=== PATIENT | female | born 1960 | race Asian ===

== ENCOUNTER 2023-08-17 23:25 | Inpatient (IN) | payer BC, SELFPAY ==
[2023-08-17 20:21] VITALS: BMI 28.6
[2023-08-17 20:25] VITALS: BP 147/71
[2023-08-17 20:37] VITALS: BP 150/68
--- NOTE | 2023-08-17 20:53 | ED.GENMED ---
History of Present Illness
<SATINDER Church - Last Filed: 08/17/23 22:39>
General
Chief Complaint: Breathing Problem
Source: patient
Exam Limitations: none
Time Seen by Provider: 08/17/23 20:35
Nursing documentation reviewed up to this point in time: agreed with
Travel History
Have you had any contact with someone who has COVID-19?: No
Do you have any symptoms of coronavirus? Fever > 100 degrees, chills, cough, shortness of breath, sore throat, loss of taste or smell, muscle aches, or headache?: No
History of Present Illness
History of Present Illness:
62-year-old female with significant past medical history including respiratory failure due to COVID in 2019 requiring ECMO, prolonged ventilation, hypertension [place] , [id number] diabetes anemia dyslipidemia CAD trach collar presents to the
ER brought by family for evaluation of shortness of breath. Family reports patient normally uses half a liter of oxygen on trach collar during the day and is vented at night. They report for the past several days they have noticed the patient
seems slower to respond slightly confused/lethargic and seems to have increased work of breathing. They have noticed that she has had increased heart rate and increased respiratory rate and lower pulse ox. She has had issues with CO2 retention in
the past
Past History
<SATINDER Church - Last Filed: 08/17/23 22:39>
Past History
ED Past Medical History: CAD, HTN, Hypercholesterolemia, IDDM, [place] and Other (COVID-19 infection June 2019 requiring ECMO while at [facility], hospitalization lasting 8 months. O2 dependent, severe deconditioning/wheelchair-bound)
ED Past Surgical History: Cardiac (Cardiac catheterization), Cholecystectomy, , Orthopedic (Laminectomy) and Other (Gallbladder stent and removal)
Patient has exhibited threatening behavior?: No
PSI?: No
Social History
Tobacco: Non-smoker
Alcohol: None
Drug: None
Personal:
Living: with family
Employment: Retired
Family History
Family History: Other (reviewed and noncontributory)
Review of Systems
<SATINDER Church - Last Filed: 08/17/23 22:39>
Review of Systems
Allergies reviewed?: Yes
Other source history: family
All Other Systems: ROS reviewed and negative except as documented in HPI and ROS
Constitutional: Reports other
Respiratory: Reports trouble breathing (Increased work of breathing )
: Reports no symptoms
Musculoskeletal: Reports no symptoms
Skin: Reports no symptoms
Psychiatric: Reports no symptoms
Phy Exam
<SATINDER Church - Last Filed: 08/17/23 22:39>
General Physical Exam
General Presentation: no apparent distress
General age: appears stated age
General Skin: warm and dry
General Habitus: elderly
General Mental: alert
General Hydration: dry mucous membranes
Cardiovascular Exam
Cardiovascular Exam: tachycardia
Pulmonary Exam
Pulmonary Exam: other (+ trach increased resp rate dec breath sounds )
Neurological Exam
Neurological Exam: alert and oriented x3
Musculoskeletal Exam
Musculoskeletal Exam: full ROM
Skin Exam
Skin Exam: normal color and warm/dry
Psychiatric Exam
Psychiatric Exam: normal mood/affect
Scores
<SATINDER Church - Last Filed: 08/17/23 22:39>
Heart Failure Risk
Heart Failure Risk Score: Not Applicable
Course
<SATINDER Church - Last Filed: 08/17/23 22:39>
Orders/Labs/Results
Orders:
Orders
08/17/23 20:49
IV Insert/Care/Rem.- Treatment PRN
Urinalysis Reflex To Culture Urgent
08/17/23 20:52
Chest X-ray Portable [CR Chest Portable - 1 View] Urgent
Comment:
Reason For Exam: SOB
Reason Study Needs to be Portable: Patient Unstable
08/17/23 21:23
Complete Blood Count/With Diff Urgent
Comprehensive Metabolic Panel Urgent
Lactic Acid Q4H
Comment: CANCEL 2nd LACTIC ACID IF 1st LACTIC ACID IS LESS THAN 2
Blood Culture Q30M
MIKKI Source: Blood/Venous
Specimen Description:
08/17/23 21:35
ABG [Arterial Blood Gas] Urgent
%Oxygen/Room Air: 36
08/17/23 22:00
Blood Culture Q30M
MIKKI Source: Blood/Venous
Specimen Description:
08/17/23 22:26
Electrocardiogram (*1) Stat
Reason for Study: Other
Other Reason for Exam: chest pain
EKG- Treatment ONCE
08/17/23 22:27
0.9% Sodium Chloride 500 ml [Nss] 500 ml IV BOLUS
08/18/23 01:30
Lactic Acid Q4H
Comment: CANCEL 2nd LACTIC ACID IF 1st LACTIC ACID IS LESS THAN 2
Abnormal Lab Results
08/17/23 08/17/23
21:23 21:35
RBC 2.91 L 10^6/uL
(4.20-5.40)
Hgb 8.2 L g/dL
(12.0-16.0)
Hct 26.2 L %
(37.0-47.0)
MCHC 31.3 L g/dL
(33.0-37.0)
MPV 11.0 H fL
(7.4-10.4)
Abs Immat Gran (auto) 0.1 H 10^3/uL
(0-0.05)
Absolute Lymphs (auto) 0.9 L 10^3/uL
(1.2-3.4)
Immature Gran % 0.8 H %
(0-0.5)
Neutrophils % 79.6 H %
(42.2-75.2)
Lymphocytes % 14.4 L %
(20.5-51.1)
pH 7.24 L
(7.35-7.45)
pCO2 52 H mmHg
(32-35)
pO2 59 L* mmHg
(83-108)
ABG O2 Sat (Measured) 92.1 L %
(94-98)
Chloride 116 H mmol/L
(98-107)
Carbon Dioxide 20 L mmol/L
(22-30)
BUN 36 H mg/dl
(7-17)
Creatinine 2.0 H mg/dL
(0.6-1.0)
Glucose 128 H mg/dl
(70-99)
AST 13 L U/L
(14-36)
Total Protein 6.1 L g/dl
(6.3-8.2)
Albumin 3.1 L g/dl
(3.5-5.0)
08/17/23 21:23
08/17/23 21:23
Vital Signs
Initial and Last Documented VS:
Initial Vital Signs
Temp Pulse Resp BP Pulse Ox
99.2 F 103 20 147/71 93
08/17/23 20:25 08/17/23 20:25 08/17/23 20:25 08/17/23 20:25 08/17/23 20:25
Last Documented Vital Signs
Temp Pulse Resp BP Pulse Ox
99.2 F 103 20 150/71 100
08/17/23 20:25 08/17/23 20:25 08/17/23 20:25 08/17/23 22:01 08/17/23 22:01
Shanthilt;DO Arnulfo Mata Filed: 08/17/23 23:04>
Orders/Labs/Results
Orders:
Orders
08/17/23 20:49
IV Insert/Care/Rem.- Treatment PRN
Urinalysis Reflex To Culture Urgent
08/17/23 20:52
Chest X-ray Portable [CR Chest Portable - 1 View] Urgent
Comment:
Reason For Exam: SOB
Reason Study Needs to be Portable: Patient Unstable
08/17/23 21:23
Complete Blood Count/With Diff Urgent
Comprehensive Metabolic Panel Urgent
Lactic Acid Q4H
Comment: CANCEL 2nd LACTIC ACID IF 1st LACTIC ACID IS LESS THAN 2
Blood Culture Q30M
MIKKI Source: Blood/Venous
Specimen Description:
08/17/23 21:35
ABG [Arterial Blood Gas] Urgent
%Oxygen/Room Air: 36
08/17/23 22:00
Blood Culture Q30M
MIKKI Source: Blood/Venous
Specimen Description:
08/17/23 22:26
Electrocardiogram (*1) Stat
Reason for Study: Other
Other Reason for Exam: chest pain
EKG- Treatment ONCE
08/17/23 22:27
0.9% Sodium Chloride 500 ml [Nss] 500 ml IV BOLUS
08/18/23 01:30
Lactic Acid Q4H
Comment: CANCEL 2nd LACTIC ACID IF 1st LACTIC ACID IS LESS THAN 2
Abnormal Lab Results
08/17/23 08/17/23
21:23 21:35
RBC 2.91 L 10^6/uL
(4.20-5.40)
Hgb 8.2 L g/dL
(12.0-16.0)
Hct 26.2 L %
(37.0-47.0)
MCHC 31.3 L g/dL
(33.0-37.0)
MPV 11.0 H fL
(7.4-10.4)
Abs Immat Gran (auto) 0.1 H 10^3/uL
(0-0.05)
Absolute Lymphs (auto) 0.9 L 10^3/uL
(1.2-3.4)
Immature Gran % 0.8 H %
(0-0.5)
Neutrophils % 79.6 H %
(42.2-75.2)
Lymphocytes % 14.4 L %
(20.5-51.1)
pH 7.24 L
(7.35-7.45)
pCO2 52 H mmHg
(32-35)
pO2 59 L* mmHg
(83-108)
ABG O2 Sat (Measured) 92.1 L %
(94-98)
Chloride 116 H mmol/L
(98-107)
Carbon Dioxide 20 L mmol/L
(22-30)
BUN 36 H mg/dl
(7-17)
Creatinine 2.0 H mg/dL
(0.6-1.0)
Glucose 128 H mg/dl
(70-99)
AST 13 L U/L
(14-36)
Total Protein 6.1 L g/dl
(6.3-8.2)
Albumin 3.1 L g/dl
(3.5-5.0)
08/17/23 21:23
08/17/23 21:23
Vital Signs
Initial and Last Documented VS:
Initial Vital Signs
Temp Pulse Resp BP Pulse Ox
99.2 F 103 20 147/71 93
08/17/23 20:25 08/17/23 20:25 08/17/23 20:25 08/17/23 20:25 08/17/23 20:25
Last Documented Vital Signs
Temp Pulse Resp BP Pulse Ox
99.2 F 103 20 150/71 100
08/17/23 20:25 08/17/23 20:25 08/17/23 20:25 08/17/23 22:01 08/17/23 22:01
<SATINDER Church - Last Filed: 08/17/23 22:39>
MDM/Problems Addressed
Differential Diagnosis Includes:
Not limited to pneumothorax, pneumonia, mucous plug
MDM/Problems Addressed:
Patient is a 62-year-old female as documented with trach with previous respiratory failure with prolonged ventilation in 2019 due to COVID. Patient has a history of recurrent CO2 retention. Family noticed the patient was more fatigued and slightly
more confused and noted increased respiratory rate. They also noted the patient was hypoxic at home. She is normally on 1/2 L of of oxygen via trach collar. Patient presented here in the ER as low as 80% on her 1 L trach collar O2. I initially
increased patient's oxygen to 4 L trach collar and her oxygenation pulse ox improved to 99%. Stat portable chest x-ray was done which does show near complete opacification throughout the left hemothorax likely atelectasis. ABG just showed
respiratory acidosis, with a pH of 7.24 she is retaining CO2 with a CO2 of 52and a low pO2 of 59. Pt eval by Ronny and Bipap was ordered 10/22.
patient with a normal white count no fevers at home will hold off on antibiotics will admit to hospital service.
Chronic conditions affecting care:
resp failure /trach and vented at night
<SATINDER Church - Last Filed: 08/17/23 22:39>
*Radiology
Radiology exam reviewed: radiology read reviewed
*Pulse Oximetry
Patient hypoxic: yes
*Critical Care Note
Total Time (30-74mins, 75-104mins- exclusive of procedures): Not Applicable
ED Attending Note
<SATINDER Church - Last Filed: 08/17/23 22:39>
-
Portions of this chart may have been created with voice recognition software.� Occasional wrong word or��sound alike� substitutions may have occurred due to the inherent limitations of voice recognition software.
<Ady Xiao DO - Last Filed: 08/17/23 23:04>
ED Attending Note
Patient seen and examined by attending physician: Yes
I performed the substantive portion of visit, reviewed & personally made and approve the management plan that is documented in note by myself or ZARI.: Yes
ED Attending Note:
Patient is 62-year-old female with a history of trach secondary to COVID and respiratory failure who presents with increasing shortness of breath over the past 3 to 4 days with a pulse ox in the 80s. Patient has a decubitus on her right side and
spends much of the time on her left side. Patient has not felt fever or chills but has felt increasingly fatigued. Patient denies chest pain. Patient feels some irritation but has not been coughing. Patient is not a GI or symptoms. Patient
denies any leg pain or swelling. On physical exam patient is pale but does have anemia but is consistent with her past values. Heart is regular and lungs are clear with diminished breath sounds on the left. Abdomen soft nontender. Extremities
without cyanosis, edema or tenderness. Patient has good peripheral pulses. On chest x-ray it appears patient has mucous plugging with atelectasis and possible pleural effusion. Patient had something similar approximately a year and a half ago.
Patient's blood gas shows a respiratory acidosis with mild hypoxemia. Patient is on 4 L and normally she is on a half at home. Patient's pulse ox is 92%. Patient was put on BiPAP to try to diminish her CO2. Patient will be admitted.
Discharge Plan
Departure
Patient Disposition: Admit
Date of Disposition: 08/17/23
Time of Disposition: 22:34
Admit to: ICU
Admit to doctor: hospitalist
Presentation/result/management discussed w/ accepting MD/DO: Hospitalist
Patient with high blood pressure during this ER visit?: Yes
Condition: Fair
Covid-19: Not Applicable
Discharge Problem:
Acute and chronic respiratory failure, Acute renal insufficiency
Prescriptions:
No Action
acetaminophen [Tylenol Extra Strength] 500 MG tablet
1,000 mg PO Q6HPRN PRN (Reason: mild pain/ temp>100.5 F) 0RF
insulin lispro [Humalog KwikPen Insulin] 100 UNIT/ML insulin pen
0 sliding scale dose SC ACHS
metformin 500 mg Tablet Extended Release 24 Hr
1,000 mg PO BID@0800,1700
Hold Instructions: Until creatinine improves
ferrous gluconate 324 mg (37.5 mg iron) Tablet
324 mg PO BID
metoprolol tartrate 25 MG tablet
50 mg PO BID
loratadine [Allergy Relief (loratadine)] 10 mg Tablet
10 mg PO DAILY PRN (Reason: allergy symptoms)
atorvastatin 20 MG tablet
20 mg PO QPM Qty: 30 0RF
doxazosin 1 MG tablet
1 mg PO HS Qty: 30 0RF
cyanocobalamin (vitamin B-12) 1,000 mcg Tablet
1,000 mcg PO DAILY
lisinopril 40 mg Tablet
40 mg PO DAILY
cholecalciferol (vitamin D3) 25 mcg (1,000 unit) Tablet
25 mcg PO DAILY
aspirin 81 mg Tablet,Delayed Release (Dr/Ec)
81 mg PO DAILY Qty: 30 0RF
amlodipine 5 mg tablet
5 mg PO DAILY
Levemir FlexPen 100 unit/mL (3 mL) Insulin Pen
10 unit SC HS
Mounjaro 7.5 mg/0.5 mL pen injector
7.5 mg SC TANG
ipratropium-albuterol 0.5 mg-3 mg(2.5 mg base)/3 mL solution for nebulization
3 ml inhalation R TID
pantoprazole 40 mg tablet,delayed release (DR/EC)
40 mg PO DAILY PRN (Reason: gi issues)
Referrals:
Arnulfo Del Valle CRNP [Family Provider] -
Interventions
Interventions:
*Risk Screen - Suicide Last Done: 08/17/23 20:31
*General Assessment Last Done: 08/17/23 20:31
*ED COVID-19 Vaccine History Last Done: 08/17/23 20:31
ED- Cardiac Assessment Last Done: 08/17/23 21:04
ED- Pulmonary Assessment Last Done: 08/17/23 21:04
Discharge Date and Time
Print Language: SINGAPOREAN
[2023-08-17 21:31] LABS: % Basophils 0.5 % (0-2); % Eosinophils 0.8 % (0-6); % Immature Granulocytes 0.8 % (0-0.5); % Lymphocytes 14.4 % (20.5-51.1); % Monocytes 3.9 % (1.7-9.3); % Neutrophils 79.6 % (42.2-75.2); Absolute Eosinophils 0.1 10^3/uL (0-0.7); Absolute Immature Granulocytes 0.1 10^3/uL (0-0.05); Absolute Lymphocytes 0.9 10^3/uL (1.2-3.4); Absolute Monocytes 0.2 10^3/uL (0.1-0.6); Absolute Neutrophils 4.9 10^3/uL (1.4-6.5); Hematocrit 26.2 % (37.0-47.0); Hemoglobin 8.2 g/dL (12.0-16.0); Mean Corp Hgb Conc. 31.3 g/dL (33.0-37.0); Mean Corpuscular Hgb 28.2 pg (27.0-31.0); Nucleated Red Blood Cells % 0 %; Platelet Count 213 10^3/uL (130-400); Red Blood Cell Count 2.91 10^6/uL (4.20-5.40); Red Cell Dist. Width 13.3 % (11.5-14.5); White Blood Cell Count 6.2 10^3/uL (4.8-10.8)
[2023-08-17 21:40] LABS: B.E. -4.9 mmol/L; HCO3 22.3 mmol/L (21-28); O2 Saturation % 92.1 % (94-98); PCO2 52 mmHg (32-35); pH 7.24 (7.35-7.45)
[2023-08-17 21:42] LABS: PO2 59 mmHg (83-108)
[2023-08-17 21:43] LABS: Lactic Acid 0.8 mmol/L (0.7-2.0)
[2023-08-17 22:01] VITALS: BP 150/71
[2023-08-17 22:14] LABS: ALT (SGPT) < 10 U/L (0-35); AST (SGOT) 13 U/L (14-36); Albumin 3.1 g/dl (3.5-5.0); Alkaline Phosphatase 56 U/L (38-126); Blood Urea Nitrogen 36 mg/dl (7-17); Calcium 8.6 mg/dl (8.4-10.2); Carbon Dioxide 20 mmol/L (22-30); Chloride 116 mmol/L (98-107); Estimated Creatinine Clearance 23 ml/min; Glucose 128 mg/dl (70-99); Potassium 4.8 mmol/L (3.5-5.1); Sodium 145 mmol/L (135-145); Total Bilirubin 0.4 mg/dl (0.2-1.3); Total Protein 6.1 g/dl (6.3-8.2); eGFR 27.38
[2023-08-17] MEDS: NSS 500 IV (22:34)
[2023-08-17 23:00] VITALS: BP 152/70
--- NOTE | 2023-08-17 23:12 | HPS.HSE ---
Family Physician
-
Family Physician: SATINDER Watkins
Chief Complaint
-
hypoxia, confusion
History of Present Illness
62-year-old female past medical history of chronic respiratory failure secondary to COVID in 2020 status post ECMO, history of hypercarbic/hypoxemic respiratory failure in the past, 0.5 L trach collar during the day, and ventilator at nighttime at
baseline, coronary artery disease, hypertension, diabetes, anemia, hyperlipidemia, history of C. difficile, ambulatory dysfunction wheelchair-bound, sacral pressure injury, obesity, spinal stenosis, presenting to the emergency room for evaluation of
shortness of breath. For the past several days patient has been slower to respond, slightly confused and lethargic increased work of breathing. She has had increased heart rate, increased respiratory rate and lower pulse ox to 80%. No fevers or
chills. She has minimal cough which is unchanged from baseline, particularly productive. Denies chest pain. Denies nausea vomiting or diarrhea.
Denies smoking or alcohol use.
Medical History
Past Medical History
Past Medical History: Reports Other (chronic respiratory failure secondary to COVID in 2020 status post ECMO, history of hypercarbic/hypoxemic respiratory failure in the past, 0.5 L trach collar during the day, and ventilator at nighttime at
baseline, coronary artery disease, hypertension, diabetes, anemia, hyperlipidemia, history of C)
Past Surgical History: Reports Other ( Cardiac (Cardiac catheterization), Cholecystectomy, , Orthopedic (Laminectomy) and Other (Gallbladder stent and removal))
Social History
Tobacco: Non-smoker
Alcohol: None
Drug: None
Family History
Family History: Not pertinent
Allergies / Home Medications
Allergies reflects when Allergies were last updated in [employer].
Home Medications with original date entered in [employer]
Allergy/Medication List:
Allergies
Allergy/AdvReac Type Severity Reaction Status Date / Time
clarithromycin Allergy TACHYCARDIA Verified 04/11/22 16:58
Home Medications
acetaminophen 500 mg tablet (Tylenol Extra Strength) 1,000 mg (2 x 500 mg) PO Q6HPRN PRN mild pain/ temp>100.5 F 08/20/20
insulin lispro 100 unit/mL subcutaneous pen (Humalog KwikPen (U-100) Insulin) 0 sliding scale dose SC ACHS Diabetes 09/10/20
ferrous gluconate 324 mg (37.5 mg iron) tablet 324 mg PO BID Supplement 11/27/21
metformin 500 mg tablet,extended release 24 hr 1,000 mg PO BID@0800,1700 Diabetes 11/27/21
metoprolol tartrate 25 mg tablet 50 mg PO BID Blood pressure 01/10/22
loratadine 10 mg tablet (Allergy Relief (loratadine)) 10 mg PO DAILY PRN allergy symptoms 01/30/22
atorvastatin 20 mg tablet 20 mg PO QPM High cholesterol #30 tabs 02/01/22
doxazosin 1 mg tablet 1 mg PO HS Blood pressure #30 tabs 02/01/22
cholecalciferol (vitamin D3) 25 mcg (1,000 unit) tablet 25 mcg PO DAILY Supplement 03/22/22
cyanocobalamin (vitamin B-12) 1,000 mcg tablet 1,000 mcg PO DAILY Supplement 03/22/22
lisinopril 40 mg tablet 40 mg PO DAILY Blood pressure 03/22/22
aspirin 81 mg tablet,delayed release 81 mg PO DAILY #30 tabs 05/18/22
amlodipine 5 mg tablet 5 mg PO DAILY 08/17/23
insulin detemir U-100 100 unit/mL (3 mL) subcutaneous pen (Levemir FlexPen) 10 unit SC HS 08/17/23
ipratropium 0.5 mg-albuterol 3 mg (2.5 mg base)/3 mL nebulization soln 3 ml inhalation R TID 08/17/23
pantoprazole 40 mg tablet,delayed release 40 mg PO DAILY PRN gi issues 08/17/23
tirzepatide 7.5 mg/0.5 mL subcutaneous pen injector (Mounjaro) 7.5 mg SC TANG 08/17/23
Review of Systems
-
History Source: Patient
A 12 point ROS was completed and negative except as noted: Yes
Constitutional: Reports No Symptoms
EENT: Reports No Symptoms
Respiratory: Reports See HPI
Cardiac: Reports No Symptoms
Abdomen/GI: Reports No Symptoms
: Reports No Symptoms
Musculoskeletal: Reports No Symptoms
Skin: Reports No Symptoms
Neurological: Reports No Symptoms
Endocrine: Reports No Symptoms
Hematologic/Lymphatic: Reports No Symptoms
Psych: Reports No Symptoms
Physical Exam
Vital Signs
Vital Signs
Temp Pulse Resp BP Pulse Ox
99.2 F 103 20 150/71 100
08/17/23 20:25 08/17/23 20:25 08/17/23 20:25 08/17/23 22:01 08/17/23 22:01
Physical Exam
General: Well Developed, Well Nourished and No Apparent Distress
HEENT: NormoCephalic, Moist mucous membranes and Atraumatic
Respiratory: Clear
Cardiac: S1/S2 and Regular Rhythm; No Murmur or Rub
GI: Soft, Non Tender, Non Distended and Normal Bowel Sounds; No Organomegaly
Rectal: Deferred by Provider
Musculoskeletal: No Clubbing, No Cyanosis and No Edema
Skin: No Rash
Neuro: Nonfocal/grossly intact
Laboratory Results
-
08/17/23 21:23
08/17/23 21:23
Laboratory Results
pH 7.24 (7.35-7.45) L 08/17/23 21:35
pCO2 52 mmHg (32-35) H 08/17/23 21:35
pO2 59 mmHg (83-108) L* 08/17/23 21:35
HCO3 22.3 mmol/L (21-28) 08/17/23 21:35
Lactic Acid 0.8 mmol/L (0.7-2.0) 08/17/23 21:23
Total Bilirubin 0.4 mg/dl (0.2-1.3) 08/17/23 21:23
AST 13 U/L (14-36) L 08/17/23 21:23
ALT < 10 U/L (0-35) 08/17/23 21:23
Alkaline Phosphatase 56 U/L (38-126) 08/17/23 21:23
Data Reviewed
-
Lab Data: Labs Reviewed by me
Old Records: Reviewed
Impression/Plan
-
IMPRESSION:
PLAN:
# Recurrent hypercarbic/hypoxemic respiratory failure secondary to near opacification of the left hemithorax likely secondary to mucous plugging/atelectasis versus large left pleural effusion/pneumonia
# History of chronic respiratory failure secondary to COVID in 2019 on baseline 0.5 L trach collar during the day, ventilator at nighttime
-Chest x-ray shows progressive near complete opacification throughout the left hemithorax
-ABG shows hypercarbia/hypoxemic respiratory failure pCO2 52, pH 7.24, pO2 59
-BiPAP 8/5, 30% started
-Check CT chest without IV contrast
-Mucomyst, Mucinex
-DuoNebs every 6 hours
-Blood cultures
-Empiric vancomycin, Zosyn although no clear signs of infection
-Pulmonology consulted
# Acute kidney injury
-Creatinine of 2 from 1 previously
-IV fluids
-Hold lisinopril
Hx of small to moderate pericardial effussion
Type 2 diabetes
-Continue Levemir 10 units
-Hold metformin
-Insulin sliding scale
Chronic anemia of chronic disease
-Hemoglobin stable at 8.2
-Continue iron supplement
Essential hypertension
-Continue amlodipine
-Continue doxazosin
-Hold lisinopril
Hyperlipidemia
-Continue statin
Coronary artery disease status post angioplasty
-Continue aspirin
-Continue metoprolol
History of C. difficile
Ambulatory dysfunction wheelchair-bound since June 2019
Obesity
Spinal stenosis
Full code
DVT prophylaxis�heparin
Regular diet
[2023-08-18] VITALS (13 sets, daily range): BP systolic 130–157; BP diastolic 55–76; BMI 27.1; BMI 27.2
[2023-08-18 00:33] LABS: Glucose - Point of Care 127 mg/dl (70-99)
[2023-08-18] MEDS: NSS 1000 IV (00:36)
[2023-08-18] MEDS: ZOSYN 50 IV ×4 (00:36→17:13)
[2023-08-18] MEDS: DUONEB 3 ML INH ×4 (01:08→19:32)
[2023-08-18] MEDS: MUCOMYST 10% 2 ML INH ×4 (01:08→19:32)
[2023-08-18] MEDS: VANCOCIN 300 ML IV (01:19)
[2023-08-18] MEDS: VANCOCIN 300 MG IV (01:19)
--- NOTE | 2023-08-18 02:18 | PTCARENOTE ---
pt arrived from ED, pt is AAOx3 able to mouth words, nods head appropriately. trach in place, on CPAP ventilator, suctioned as needed. pt inc of urine, PW applied. DTI noted to sacrum, foam applied along with Calazime cream. pt oriented to new room,
call giles within reach, care ongoing.
--- NOTE | 2023-08-18 05:30 | PTCARENOTE ---
no urine output, PW in place, bladder scanned for 183ml this morning.
[2023-08-18 05:50] LABS: ALT (SGPT) < 10 U/L (0-35); AST (SGOT) 12 U/L (14-36); Albumin 2.6 g/dl (3.5-5.0); Alkaline Phosphatase 50 U/L (38-126); Blood Urea Nitrogen 34 mg/dl (7-17); Calcium 7.9 mg/dl (8.4-10.2); Carbon Dioxide 22 mmol/L (22-30); Chloride 119 mmol/L (98-107); Estimated Creatinine Clearance 22 ml/min; Glucose 93 mg/dl (70-99); Potassium 4.5 mmol/L (3.5-5.1); Sodium 147 mmol/L (135-145); Total Bilirubin 0.2 mg/dl (0.2-1.3); Total Protein 5.4 g/dl (6.3-8.2); eGFR 25.83
[2023-08-18 05:51] LABS: % Basophils 0.4 % (0-2); % Immature Granulocytes 0.4 % (0-0.5); % Monocytes 5.2 % (1.7-9.3); Absolute Eosinophils 0.1 10^3/uL (0-0.7); Absolute Lymphocytes 1.2 10^3/uL (1.2-3.4); Absolute Monocytes 0.2 10^3/uL (0.1-0.6); Absolute Neutrophils 3.1 10^3/uL (1.4-6.5); Hematocrit 23.4 % (37.0-47.0); Mean Corp Hgb Conc. 29.5 g/dL (33.0-37.0); Mean Corpuscular Volume 95.1 fL (81.0-99.0); Mean Platelet Volume 11.3 fL (7.4-10.4); Nucleated Red Blood Cells % 0 %; Platelet Count 174 10^3/uL (130-400); Red Blood Cell Count 2.46 10^6/uL (4.20-5.40); Red Cell Dist. Width 13.3 % (11.5-14.5); White Blood Cell Count 4.6 10^3/uL (4.8-10.8)
[2023-08-18] MEDS: HEPARIN 5000 UNITS SC ×2 (09:00→19:59)
[2023-08-18 09:11] LABS: Glycohemoglobin (HgbA1c) 4.9 % (4.0-5.6)
--- NOTE | 2023-08-18 09:36 | PHA.VAN.IN ---
Assessment
- Assessment
Renal Function: Appears elevated from baseline (SCR 2-->2.1 vs ~0.8-1)
Concomitant Antimicrobials: piperacillin/tazobactam
Plan
- Plan
Initial / Loading Dose: 1500mg - 08/17 01:19
Maintenance Regimen: dosing by level
Monitoring: random 08/18 0600
Pharmacokinetics Vancomycin I
- -
Patient Age: 62
Patient Sex: Female
Vancomycin Day #: 1
Indication: Pulmonary/Respiratory
Requesting Provider: Dr. Whiteside
Pertinent Antimicrobial Allergies:
clarithromycin - tachycardia
Height / Weight:
Height 5 ft
Actual Weight 63.2 kg
Pertinent Past Medical History: DM 2
- Vital Signs / Lab Results
Temp Pulse Resp BP Pulse Ox
97.3 F 85 23 150/65 91
08/18/23 07:37 08/18/23 06:00 08/18/23 06:00 08/18/23 06:00 08/18/23 06:00
Lab Results - Hematology
08/17/23 08/18/23
21:23 05:25
WBC 6.2 4.6 L
Lab Results - Chemistry
08/17/23 08/18/23
21:23 05:25
BUN 36 H 34 H
Creatinine 2.0 H 2.1 H
Estimated Creat Clear 23 22
Albumin 3.1 L 2.6 L
08/17/23 08/18/23
21:23 01:30
Lactic Acid 0.8 Cancelled
[2023-08-18 09:45] LABS: Glucose - Point of Care 113 mg/dl (70-99)
--- NOTE | 2023-08-18 09:51 | CON.PUL ---
Consultation
Consultation Request
Date/Time Consultation Requested: 08/18/2023-8 AM
Date/Time Consultation Performed: 08/18/2023-8 AM
Requesting Provider: Hospitalist
Performing Provider: Dr. Palomino
Reason for Consultation: Respiratory failure
Medical History
-
Chief Complaint: Shortness of breath
History of Present Illness:
Patient is a 62-year-old female status post Covid/ECMO/tracheostomy tube with recurrent hospitalizations for hypercapnic and hypoxemic respiratory failure presented with hypoxemia, hypercapnia, mental status changes, and left lung opacification with
suspected mucous plug and pulmonary was consulted for atelectasis/mucous plug/respiratory failure on 08/17/2023. The patient has been placed on a ventilator and oxygenation has improved. Patient is more alert. She still has significantly
diminished breath sounds on the left. She has moderate amounts of secretions. She denies any chest pain, shortness of breath at rest, abdominal pain, or weakness.
Past Medical History
Past Medical History: None (Chronic hypercapnic/hypoxemic respiratory failure/chronic tracheostomy/nocturnal ventilation. Severe Covid/ECMO 2019. Diabetes. Hypertension. CAD/angioplasty 2020. Recurrent UTI. Ambulatory
dysfunction/wheelchair-bound. Chronic anemia. Overweight. Renal calculi.)
Past Surgical History: None (Laparoscopic cholecystectomy 07/2020. Bilateral ureteroscopy with lithotripsy of the right renal stone and clearing of left renal pelvic fungal ball. Laminectomy. .)
Social History
Tobacco: Non-smoker
Alcohol: None
Drug: None
Personal:
Living: With Family
Occupational Exposures: No known asbestos exposure
Environmental Exposures: No known tuberculosis exposure
Family History
Family History: Reviewed & Not Pertinent
Allergies / Home Medications
Allergies
Allergy/AdvReac Type Severity Reaction Status Date / Time
clarithromycin Allergy TACHYCARDIA Verified 04/11/22 16:58
Home Medications
�Medication �Instructions �Recorded �Confirmed �Last Taken �Type
acetaminophen 500 mg tablet 1,000 mg (2 x 500 mg) PO Q6HPRN 08/20/20 08/17/23 Unknown Rx
(Tylenol Extra Strength) PRN mild pain/ temp>100.5 F
insulin lispro 100 unit/mL 0 sliding scale dose SC ACHS 09/10/20 08/17/23 03/22/22 History
subcutaneous pen (Humalog KwikPen Diabetes
(U-100) Insulin)
ferrous gluconate 324 mg (37.5 mg 324 mg PO BID Supplement 11/27/21 08/17/23 08/17/23 History
iron) tablet
metformin 500 mg tablet,extended 1,000 mg PO BID@0800,1700 Diabetes 11/27/21 08/17/23 08/17/23 History
release 24 hr
metoprolol tartrate 25 mg tablet 50 mg PO BID Blood pressure 01/10/22 08/17/23 08/17/23 History
loratadine 10 mg tablet (Allergy 10 mg PO DAILY PRN allergy symptoms 01/30/22 08/17/23 Unknown History
Relief (loratadine))
atorvastatin 20 mg tablet 20 mg PO QPM High cholesterol #30 02/01/22 08/17/23 08/16/23 Rx
tabs
doxazosin 1 mg tablet 1 mg PO HS Blood pressure #30 tabs 02/01/22 08/17/23 08/16/23 Rx
cholecalciferol (vitamin D3) 25 25 mcg PO DAILY Supplement 03/22/22 08/17/23 08/17/23 History
mcg (1,000 unit) tablet
cyanocobalamin (vitamin B-12) 1,000 mcg PO DAILY Supplement 03/22/22 08/17/23 08/17/23 History
1,000 mcg tablet
lisinopril 40 mg tablet 40 mg PO DAILY Blood pressure 03/22/22 08/17/23 08/17/23 History
aspirin 81 mg tablet,delayed 81 mg PO DAILY #30 tabs 05/18/22 08/17/23 08/17/23 Rx
release
amlodipine 5 mg tablet 5 mg PO DAILY Blood Pressure 08/17/23 08/17/23 08/17/23 History
insulin detemir U-100 100 unit/mL 10 unit SC HS 08/17/23 08/17/23 08/16/23 History
(3 mL) subcutaneous pen (Levemir
FlexPen)
ipratropium 0.5 mg-albuterol 3 mg 3 ml inhalation R TID 08/17/23 08/17/23 08/17/23 History
(2.5 mg base)/3 mL nebulization
soln
pantoprazole 40 mg tablet,delayed 40 mg PO DAILY PRN gi issues 08/17/23 08/17/23 Unknown History
release
tirzepatide 7.5 mg/0.5 mL 7.5 mg SC TANG Diabetes 08/17/23 08/17/23 08/13/23 History
subcutaneous pen injector
(Gallo)
Review of Systems
-
Unable to Obtain full review of systems at this time due to: Other (Per HPI)
Vitals / Labs / Diagnostic Testing
Vital Signs
Temp Pulse Resp BP Pulse Ox
97.3 F 85 23 150/65 91
08/18/23 07:37 08/18/23 06:00 08/18/23 06:00 08/18/23 06:00 08/18/23 06:00
Lab Data
08/18/23 05:25
08/18/23 05:25
Laboratory Results
08/17/23
21:35
pH 7.24 L
pCO2 52 H
pO2 59 L*
HCO3 22.3
O2 Delivery Level
Diagnostic Testing:
Physical Exam
-
Exam:
Well-nourished and well-developed in no apparent distress
HEENT-atraumatic, normocephalic, tracheostomy tube in the midline well-healed no erosions
Neck-supple, no JVD, no bruit
Heart-regular rate and rhythm-no murmurs, rubs or gallops
Chest with diminished breath sounds on the left, few rhonchi on the right,
Abdomen-soft, nontender, nondistended, no hepatosplenomegaly
Extremities-no cyanosis, clubbing, trace lower extremity edema
Integument-intact, no rashes, lesions or ecchymosis
Neurologically alert and oriented to generalized weakness
Assessment
-
Patient is a 62-year-old female status post Covid/ECMO/tracheostomy tube with recurrent hospitalizations for hypercapnic and hypoxemic respiratory failure presented with hypoxemia, hypercapnia, mental status changes, and left lung opacification with
suspected mucous plug and pulmonary was consulted for atelectasis/mucous plug/respiratory failure on 08/17/2023.
Hypoxemic and hypercapnic respiratory failure due to mucous plug/left lung atelectasis
ABG 08/17/2023--52/59/7 0.24
Mucous plug/left lung atelectasis
Status post emergent bronchoscopy at the bedside 08/18/2023-mucous plugs removed from the left
Pneumonia
Left pleural effusion
CHINTAN
Yomhok-[id number]-[id number] 7.0
Hypocalcemia
Hypernatremia
Metabolic and respiratory acidosis
Conditions present prior to admission:
Chronic hypercapnic/hypoxemic respiratory failure/chronic tracheostomy/nocturnal ventilation.
Severe Covid/ECMO 2019.
Diabetes.
Hypertension.
CAD/angioplasty 2020.
Recurrent UTI.
Ambulatory dysfunction/wheelchair-bound.
Chronic anemia.
Overweight.
Renal calculi.
Laparoscopic cholecystectomy 07/2020. Bilateral ureteroscopy with lithotripsy of the right renal stone and clearing of left renal pelvic fungal ball. Laminectomy. .
Plan
Respiratory decompensation due to mucous plug and complete left lung atelectasis-note moderate pleural effusion on the left as well
Placed back on ventilator
Increase pressure support
Emergent bronchoscopy performed 08/18/2023 with some mucous plugs removed
Follow-up chest x-ray
Consider thoracentesis if significant fluid persists as may be contributing to atelectasis
Nebulizers as needed
Mucolytic's
Aspiration precautions
Check cultures
Empiric antibiotics-Zosyn and vancomycin initiated
Monitor renal function
Consider nephrology evaluation if does not improve
Monitor hemoglobin
Transfuse as needed
Replace electrolytes
Increase free water and monitor serum sodium
DVT prophylaxis-on subcu heparin
Nutrition
Early mobilization/bedside range of motion-baseline wheelchair-bound and ambulatory dysfunction
Reviewed with nursing and respiratory therapy
The patient was last seen in the pulmonary office by Klapana Mobley NP 06/01/2023 and has an appointment 09/07/2023 at 10:30 AM
Diagnostic data:
CXR 04-27, reviewed, L basilar atelectasis
CXR 04-19, resolved total L atelectasis, currently back to chronic L basilar atelectasis. New tracheostomy
CXR 04-16, portable, L basilar atelectasis
CXR 04/11/22- 1. Complete opacification of the left hemithorax, likely on the basis of a large pleural effusion and compressive atelectasis upon the left lung. Mild right basilar pneumonia suspected
Chest x-ray 08/17/2023-near complete opacification throughout the left Jovanni thorax
Echocardiogram 01/10/22-EF 60-65%, no significant valvular disease, small pericardial effusion
Echocardiogram 03/22/22: Normal left ventricular chamber size. Normal left ventricular systolic�function. Normal regional wall motion. Normal left ventricular wall thickness.�Left ventricular ejection fraction is 60-65%. Mild tricuspid
regurgitation.�Small to moderate pericardial effusion without evidence of hemodynamic�compromise.�Compared to the previous echo Dec 2021, there is no significant change.
CT CHEST 04/11/22- �A moderate to large left pleural effusion and complete collapse/atelectasis of the left lung account for the left hemithorax opacification on the prior chest radiograph. Findings are in part likely secondary to mucous plugging
given the presence of opacification of the left mainstem bronchus and left upper and lower lobe bronchi, patchy opacifications right middle and lower lobe suspicious for pneumonia, moderate right pleural effusion and ill-defined sclerotic lesion
T12, osseous metastasis not completely excluded
CT CHEST 03/22/22 - There is no CT evidence for pulmonary embolism. No aortic dissection.There are extremely large bilateral pleural effusions right greater than left and associated bilateral consolidation most prominent in the left lower
lobe.Cardiomegaly. Increased pericardial effusion.
CT chest 08/17/2023-occluded left mainstem bronchus presumably mucous plugs with complete atelectasis left lung moderate size left pleural effusion, small to moderate right pleural effusion
VSE 04/28/22: No aspiration. Laryngeal penetration with cough with thin liquids by cup.
Spirometry 09/09/21-FEV1 790 mL-36%, FVC 790 mL 27%. Some difficulties with maneuver and thus may offer unreliability. Severe restriction.�������
PFT 02/08/22-FVC 1.01/30%, FEV1 0.70/35%, ratio 69%, unable to perform lung volumes and diffusing capacity.
Data Reviewed
-
PFT: Report reviewed by me
EKG: Report reviewed by me
Radiology: Image personally visualized and interpreted and Report reviewed by me
CT Scan: Image personally visualized and interpreted and Report reviewed by me
Medical Tests (Nuc Med, Echo etc): Report reviewed by me
Labs: Labs reviewed by me
Old Records: Reviewed
Total Time Spent with Patient (in minutes): 65
--- NOTE | 2023-08-18 09:51 | W.PN.UPDATE ---
Update Note
Progress Note Update
Emergent bedside bronchoscopy performed-complete left lung atelectasis and hypoxemia
Bronchoscopy was performed emergently, patient was notified of reasons and agreeable, understands risks
Disposable bronchoscope used and patient had bronchoscopy performed via tracheostomy tube. Moderate amount secretions noted in the right as well as the left. No gross large plug was noted. Lingula had significant secretions. Bronchoalveolar
lavage was performed and additional secretions were cleared. Bronchoalveolar lavage was performed from the lingula and cultures were sent. Patient tolerated procedure well without any desaturations, arrhythmias, or hemodynamic instability.
Reviewed with nursing as well as respiratory therapy.
--- NOTE | 2023-08-18 10:37 | W.PN.HOSP.TC ---
Today's Communication/Plan
-
see bold
Assessment / Plan
Assessment / Plan
Gen: NAD, AAOx3.
Eyes: EOMI, PERRLA, no scleral icterus.
Neck: supple.
CV: RRR, +S1/S2, no m/r/g.
Resp: CTAB, no rales, wheezes, or rhonchi.
Abd: +BS, soft, NT, ND
Skin: No rashes.
Neuro: CN 2-12 intact, non-focal.
Psych: Normal mood and affect.
CT chest:
1. Occluded left main stem bronchus, presumably secondary to mucous plugging, with complete atelectasis of the left lung and left-sided volume loss. Small to moderate-sized left-sided pleural effusion.
2. Small to moderate right pleural effusion with adjacent compressive atelectasis. Nonspecific scattered interstitial opacities within the aerated portions of the right lung.
3. Moderate cardiomegaly with pericardial effusion.
Acute on chronic hypercapnic/hypoxemic respiratory failure:
-due to near opacification of the left hemithorax likely secondary to mucous plugging/atelectasis versus large left pleural effusion/pneumonia
-h/o chronic hypercapnic/hypoxemic respiratory failure secondary to COVID in 2019 on baseline 0.5 L trach collar during the day, ventilator at nighttime
-Chest x-ray shows progressive near complete opacification throughout the left hemithorax
-ABG on admission showed hypercarbia/hypoxemic respiratory failure pCO2 52, pH 7.24, pO2 59
-BiPAP 8/5, 30% started, currently on PSV
-CT chest above
-s/p emergency bronchoscopy 08/18/23AM. No large mucous plug bilaterally. Lingula had significant secretions and BAL was performed.
-cont Mucomyst/duonebs
-pulm following, case discussed with Dr. Palomino.
-currently on empiric vancomycin, Zosyn although no clear signs of infection
-follow BCxs/BAL Cxs
CHINTAN:
-cont IVFs
-holding ACEi
-c/s renal
Anemia of chronic disease
-transfuse for Hb < 7
-Continue iron supplement
Other problems:
DM2: cont Lantus/SSI/accuchecks
Hx of small to moderate pericardial effusion
Essential hypertension: cont Norvasc/doxazosin. Holding lisinopril.
Hyperlipidemia: Continue statin
Coronary artery disease status post angioplasty: cont ASA/BB
h/o C. diff
Ambulatory dysfunction wheelchair-bound since June 2019
Spinal stenosis
Pt's updated at bedside.
FULL/heparin
Total time spent on today's encounter was 50 minutes which included time spent in counseling the patient/family regarding diagnosis and treatment plan as listed above, goals of care, and symptom management. Case was discussed with nursing staff,
specialists, and care coordinators/case management. All labs and imaging personally reviewed by me. Remainder the time spent in detailed review of previous records, lab data, imaging, and other medical provider documentation.
Anticipated Discharge: > 48 hours
Subjective/Interval History
-
Date of Service: August 18, 2023
SOB improving.
Objective Data
-
Labs:
Laboratory Results
08/18/23
05:25
WBC 4.6 L
Hgb 7.0 L
Hct 23.4 L
Plt Count 174
Sodium 147 H
Potassium 4.5
Chloride 119 H
Carbon Dioxide 22
BUN 34 H
Creatinine 2.1 H
Glucose 93
Calcium 7.9 L
Total Bilirubin 0.2
AST 12 L
ALT < 10
Alkaline Phosphatase 50
Vital Signs:
Vital Signs
Temp Pulse Resp BP Pulse Ox
97.3 F 85 23 150/65 91
08/18/23 07:37 08/18/23 06:00 08/18/23 06:00 08/18/23 06:00 08/18/23 06:00
I&O
08/17/23 08/18/23 08/19/23
06:59 06:59 06:59
Intake Total 320 / 320
Balance 320 / 320
[2023-08-18] MEDS: FEOSOL PO (11:39)
[2023-08-18] MEDS: VITAMIN B-12 PO (11:40)
[2023-08-18] MEDS: VITAMIN D3 (cholecalciferol) PO (11:40)
[2023-08-18] MEDS: MUCINEX PO (11:40)
[2023-08-18] MEDS: NORVASC PO (11:41)
[2023-08-18] MEDS: LOPRESSOR PO (11:41)
[2023-08-18 11:42] LABS: Urine Albumin 3+ (Neg - Trace); Urine Bilirubin Negative (Negative); Urine Character Very Cloudy (Clear); Urine Color Yellow; Urine Glucose Negative (Negative); Urine Ketone Negative (Negative); Urine Leukocyte 2+ (Negative); Urine Nitrite Negative (Negative); Urine Occult Blood 2+ (Negative); Urine Urobilinogen Negative (Neg - 1+)
[2023-08-18] MEDS: ASPIR LOW (ENTERIC COATED) PO (11:43)
[2023-08-18 11:56] LABS: Urine Bacteria Many (Negative); Urine Squamous Cell 0-2 /LPF (Few)
[2023-08-18 11:57] LABS: Urine White Cell 40-50 /HPF (0-5)
[2023-08-18 12:58] LABS: Glucose - Point of Care 109 mg/dl (70-99)
--- NOTE | 2023-08-18 14:07 | W.CON.NEPH ---
Consultation
-
Date/Time Consultation Requested: 08/18/23 1045
Date/Time Consultation Performed: 08/18/23 1400
Requesting Provider: Елена Roach
Performing Provider: Mi Crooks
Reason for Consultation: CHINTAN
Medical History
-
Chief Complaint: hypoxia and confusion
History of Present Illness:
62-year-old female past medical history of chronic respiratory failure secondary to COVID in 2020 status post ECMO, history of hypercarbic/hypoxemic respiratory failure in the past, 0.5 L trach collar during the day, and ventilator at nighttime at
baseline, coronary artery disease on ASA, DM type 2 on MOunjaro(started with in 6m), metformin, , hypertension on Amlodipine, lisinopril, chr anemia on oral iron, hyperlipidemia on statin, history of C. difficile, ambulatory dysfunction
wheelchair-bound, sacral pressure injury, obesity, spinal stenosis, presented to the emergency room for evaluation of shortness of breath on 08/16. For the past several days patient has been slower to respond, slightly confused and lethargic
increased work of breathing. She has had increased heart rate, increased respiratory rate and lower pulse ox to 80%. No fevers or chills. She has minimal cough which is unchanged from baseline, particularly productive. Denies chest pain. Denies
nausea vomiting or diarrhea. SHe underwent bronch but no large mucus plug removal today. Since admit her cr is elevated at 2 with no change with IVF hence nephrology consulted. Her baseline cr 1 in 04/2022. Her PVR only 143cc. no hypotension noted.
Past Medical History
chronic respiratory failure secondary to COVID in 2020 status post ECMO, history of hypercarbic/hypoxemic respiratory failure in the past, 0.5 L trach collar during the day, and ventilator at nighttime at baseline, coronary artery disease,
hypertension, diabetes, anemia, hyperlipidemia, history of C diff, K stone, recurrent UTI
Past Surgical History: Other (Cardiac (Cardiac catheterization), Cholecystectomy, , Orthopedic (Laminectomy) and Gallbladder stent and removal, Bilateral ureteroscopy with lithotripsy of the right renal stone and clearing of left renal
pelvic fungal ball)
Social History
she lives at home-daughter, son and takes care of her
Tobacco: Non-Smoker
Alcohol: None
Personal:
Employment: Not Employed
Family History
Family History: Not Pertinent
Allergies / Home Medications
Allergy/AdvReac Type Severity Reaction Status Date / Time
clarithromycin Allergy TACHYCARDIA Verified 04/11/22 16:58
�Medication �Instructions �Recorded �Confirmed �Type
acetaminophen 500 mg tablet 1,000 mg (2 x 500 mg) PO Q6HPRN 08/20/20 08/17/23 Rx
(Tylenol Extra Strength) PRN mild pain/ temp>100.5 F
insulin lispro 100 unit/mL 0 sliding scale dose SC ACHS 09/10/20 08/17/23 History
subcutaneous pen (Humalog KwikPen Diabetes
(U-100) Insulin)
ferrous gluconate 324 mg (37.5 mg 324 mg PO BID Supplement 11/27/21 08/17/23 History
iron) tablet
metformin 500 mg tablet,extended 1,000 mg PO BID@0800,1700 Diabetes 11/27/21 08/17/23 History
release 24 hr
metoprolol tartrate 25 mg tablet 50 mg PO BID Blood pressure 01/10/22 08/17/23 History
loratadine 10 mg tablet (Allergy 10 mg PO DAILY PRN allergy symptoms 01/30/22 08/17/23 History
Relief (loratadine))
atorvastatin 20 mg tablet 20 mg PO QPM High cholesterol #30 02/01/22 08/17/23 Rx
tabs
doxazosin 1 mg tablet 1 mg PO HS Blood pressure #30 tabs 02/01/22 08/17/23 Rx
cholecalciferol (vitamin D3) 25 25 mcg PO DAILY Supplement 03/22/22 08/17/23 History
mcg (1,000 unit) tablet
cyanocobalamin (vitamin B-12) 1,000 mcg PO DAILY Supplement 03/22/22 08/17/23 History
1,000 mcg tablet
lisinopril 40 mg tablet 40 mg PO DAILY Blood pressure 03/22/22 08/17/23 History
aspirin 81 mg tablet,delayed 81 mg PO DAILY #30 tabs 05/18/22 08/17/23 Rx
release
amlodipine 5 mg tablet 5 mg PO DAILY Blood Pressure 08/17/23 08/17/23 History
insulin detemir U-100 100 unit/mL 10 unit SC HS 08/17/23 08/17/23 History
(3 mL) subcutaneous pen (Levemir
FlexPen)
ipratropium 0.5 mg-albuterol 3 mg 3 ml inhalation R TID 08/17/23 08/17/23 History
(2.5 mg base)/3 mL nebulization
soln
pantoprazole 40 mg tablet,delayed 40 mg PO DAILY PRN gi issues 08/17/23 08/17/23 History
release
tirzepatide 7.5 mg/0.5 mL 7.5 mg SC TANG Diabetes 08/17/23 08/17/23 History
subcutaneous pen injector
(Gallo)
Review of Systems
-
all complete 12 point ROS have been inquired and found negative other than stated in HPI
Physical Exam
Vital Signs
Vital Signs
Temp Pulse Resp BP Pulse Ox
98.3 F 85 23 150/65 91
08/18/23 11:14 08/18/23 06:00 08/18/23 06:00 08/18/23 06:00 08/18/23 06:00
Lab Results
WBC 4.6 10^3/uL (4.8-10.8) L 08/18/23 05:25
RBC 2.46 10^6/uL (4.20-5.40) L 08/18/23 05:25
Hgb 7.0 g/dL (12.0-16.0) L 08/18/23 05:25
Hct 23.4 % (37.0-47.0) L 08/18/23 05:25
Plt Count 174 10^3/uL (130-400) 08/18/23 05:25
Sodium 147 mmol/L (135-145) H 08/18/23 05:25
Potassium 4.5 mmol/L (3.5-5.1) 08/18/23 05:25
Chloride 119 mmol/L (98-107) H 08/18/23 05:25
Carbon Dioxide 22 mmol/L (22-30) 08/18/23 05:25
BUN 34 mg/dl (7-17) H 08/18/23 05:25
Creatinine 2.1 mg/dL (0.6-1.0) H 08/18/23 05:25
eGFR 25.83 08/18/23 05:25
Glucose 93 mg/dl (70-99) 08/18/23 05:25
Calcium 7.9 mg/dl (8.4-10.2) L 08/18/23 05:25
Albumin 2.6 g/dl (3.5-5.0) L 08/18/23 05:25
CT chest with out contrast 08/16:
IMPRESSION:
1. Occluded left main stem bronchus, presumably secondary to mucous plugging, with complete atelectasis of the left lung and left-sided volume loss. Small to moderate-sized left-sided pleural effusion.
2. Small to moderate right pleural effusion with adjacent compressive atelectasis. Nonspecific scattered interstitial opacities within the aerated portions of the right lung.
3. Moderate cardiomegaly with pericardial effusion.
4. Additional findings above.
A preliminary interpretation was provided by [facility] teleradiology service. The above report agrees with the initial interpretation.
CXR:
IMPRESSION:
Progressive near-complete opacification throughout the left hemithorax. The differential includes atelectasis, pneumonia, and/or effusion.
Minor atelectasis versus pneumonia in the right mid and lower lung zone.
Physical Exam
General: Awake, Alert, Oriented, AOx3, No Distress and Nontoxic
HEENT: EOMI and Anicteric
Respiratory: Normal Excursion, Nonlabored Respirations and Other (decreased BS)
Cardiac: S1/S2 and Regular Rate/Rhythm
Breast: Deferred by me
Abdomen: Soft, Nontender and Nondistended
Genito-urinary: Clear Urine
Musculoskeletal: No Cyanosis and No Edema
Skin: No Rash
Neuro: Other (WCbound, awake, alert and oriented)
Psych: Mood/afflect pleasant, Insight/judgement good and Appropriate
Data Reviewed
-
Radiology: Discussed with Patient and Discussed with Family
Labs: Labs Reviewed by me, Discussed with Patient and Discussed with Family
Assessment/Plan
-
IMP:
Acute on chronic hypercapnic/hypoxemic respiratory failure
-h/o chronic hypercapnic/hypoxemic respiratory failure secondary to COVID in 2019 on baseline 0.5 L trach collar during the day, ventilator at nighttime
CHINTAN
Anemia of chronic disease
mild hypernatremia
bilat pleural effusion
IDDM2
Hx of small to moderate pericardial effusion
Essential hypertension
Hyperlipidemia
Coronary artery disease status post angioplasty
h/o C. diff
Ambulatory dysfunction wheelchair-bound since June 2019
Spinal stenosis
h/o K stone
Hypoalbuminemia
Plan:
A?w hypoxia and confusion with acute resp failure
CHINTAN-baseline cr at 1 in 2022, now upto 2.1 with oliguria
UA with ?UTI, await cx, check renal US with h/o K stone
she seem to have albuminuria suspect underlying ?diabetic nephropathy
check U pCR, given effusions check BNP
echo for f/u of pericardial effusion, was present in 2022
PVR only 143cc, monitor UOP
note that she was started on Mounjaro in last 6months- recent cr value not avialable
avoid nephrotoxins and adjust meds renally
Bp stable with out hypotension , holding ACEI, cont Amlodipine and Doxazosin
anemia-check fe panel, b12,folate and paraprotein w/u
prn transfusion, may benefit from BARB
corrected jannie is normal , check vit d
DM-on insulin, hold mounjaro and metformin
expect to improve hypernatremia now that she is able to take po
if BNP is high likely wean off IVF, abx per primary and pulm
d/w pt , and nursing
[2023-08-18 15:46] LABS: Glucose - Point of Care 116 mg/dl (70-99)
--- NOTE | 2023-08-18 16:12 | PTOTSP ---
Dysphagia Evaluation
Patient with functional oral/pharyngeal swallowing based on this clinical bedside swallowing evaluation. Patient/family denied any difficulty swallowing prior to admission.
Patient known to department from prior video swallow study 04/28/2022 (mild pharyngeal dysphagia; responsive aspiration to thin liquids; regular/mildly thick recommended) which was completed while on the vent without an in-line speaking valve.
Patient was eventually advanced to a regular/thin liquid on trach collar with PMV in place.
Patient with concern for PNA this admission. Cannot rule out silent aspiration bedside. If consider for this, consider repeat video swallow study.
Recommend:
1. Regular, Thin Liquids
2. Supervision; assist with meal tray set up/cutting foods
3. Medications - as best tolerated
4. Strategies: PO when on trach collar with speaking valve on, upright to 90 degrees, small single sips/bites, slow rate
5. Oral care 3x daily
6. Will follow up at the acute care level for dysphagia tx. Speech therapy with PMV not warranted at this time.
[2023-08-18 16:34] LABS: NT-proBNP 14500 pg/ml
--- NOTE | 2023-08-18 16:42 | CM ---
web project manager reviewed patient's chart and met with patient and patient lives with with her spouse and daughter in a one story home, patient has a ramp to enter. Patient has hospital bed, Mikki lift, trach supplies, trilogy, and w/c in home, patient
had [facility] not sure is she will need it at discharge.
Plan; Home with spouse and daughter, will need to follow if patient needs visiting nurse services at discharge.
[2023-08-18] MEDS: LIPITOR 20 MG PO (18:09)
[2023-08-18] MEDS: NSS IV (18:10)
[2023-08-18 18:20] LABS: Protein/creatinine Ratio 8.7; Urine Protein 530 mg/dl
[2023-08-18] MEDS: FEOSOL 325 MG PO (19:59)
[2023-08-18] MEDS: LOPRESSOR 50 MG PO (20:01)
[2023-08-18] MEDS: MUCINEX 600 MG PO (20:01)
[2023-08-18 21:49] LABS: Glucose - Point of Care 124 mg/dl (70-99)
[2023-08-18] MEDS: CARDURA 1 MG PO (22:06)
[2023-08-18] MEDS: LANTUS 0.100000000000000006 UNITS SC (22:06)
--- NOTE | 2023-08-18 23:53 | PTCARENOTE ---
Pt AAOx3, tracheostomy in place. Pt able to speak with pmv in place. TALENT DEVELOPMENT SPECIALIST transitioned pt to ventilator on CPAP 12/22 30%. SaO2 97%. Assessment as documented. Pt denies complaints at this time. Able to swallow oral medications whole with liquids. Pw
in place for urinary incontinence. Call giles within reach.
[2023-08-19] VITALS (21 sets, daily range): BP systolic 110–164; BP diastolic 50–114; BMI 27.6
[2023-08-19] MEDS: ZOSYN 50 IV ×5 (00:13→23:25)
[2023-08-19] MEDS: MUCOMYST 10% 2 ML INH ×4 (01:51→19:42)
[2023-08-19] MEDS: DUONEB 3 ML INH ×4 (01:51→19:42)
[2023-08-19 06:02] LABS: Iron 31 ug/dl (37-170)
[2023-08-19 06:07] LABS: Vancomycin Random 16.5 ug/ml
[2023-08-19 06:11] LABS: Percent Saturation 21 % (20-50); Total Iron Binding Capacity 145 ug/dl (265-497)
[2023-08-19 06:20] LABS: Vitamin D, 25-OH*** 37.9 ng/mL (30-80)
[2023-08-19 06:32] LABS: % Basophils 0.4 % (0-2); % Eosinophils 1.9 % (0-6); % Immature Granulocytes 0.6 % (0-0.5); % Lymphocytes 17.5 % (20.5-51.1); % Monocytes 6.1 % (1.7-9.3); % Neutrophils 73.5 % (42.2-75.2); Absolute Eosinophils 0.1 10^3/uL (0-0.7); Absolute Lymphocytes 0.8 10^3/uL (1.2-3.4); Absolute Monocytes 0.3 10^3/uL (0.1-0.6); Absolute Neutrophils 3.5 10^3/uL (1.4-6.5); Hematocrit 22.6 % (37.0-47.0); Mean Corp Hgb Conc. 30.5 g/dL (33.0-37.0); Mean Corpuscular Hgb 28.2 pg (27.0-31.0); Mean Corpuscular Volume 92.2 fL (81.0-99.0); Mean Platelet Volume 11.4 fL (7.4-10.4); Nucleated Red Blood Cells % 0 %; Platelet Count 189 10^3/uL (130-400); Red Blood Cell Count 2.45 10^6/uL (4.20-5.40); Red Cell Dist. Width 13.8 % (11.5-14.5); White Blood Cell Count 4.8 10^3/uL (4.8-10.8)
[2023-08-19 06:36] LABS: Hemoglobin 6.9 g/dL (12.0-16.0)
[2023-08-19 07:10] LABS: Folate 4.5 ng/ml (2.76-20); Vitamin B12 461 pg/ml (239-931)
--- NOTE | 2023-08-19 07:27 | PHA.VAN.FU ---
Vancomycin Assessment / Plan
- Assessment
Renal Function: No New Labs Today (SCr 2.0->2.1 08/17)
WBC's are: WNL
In the past 24 hrs, patient has been: Afebrile
Concomitant Antimicrobials: piperacillin-tazobactam
- Assessment - Therapeutic Drug Monitoring
Random Level: 16.5 ~28 hours after 1500 mg loading dose
- Dosing Plan
Continue: to dose by level
Dosing by Level: Hold off on dosing today
- Monitoring Plan
Random Level: 6/2 am
Monitoring Comments: SCr/BUN ordered per protocol
- Follow Up
Pharmacy will continue to follow.
Vancomycin Follow UP
- -
Patient Age: 62
Patient Sex: Female
Vancomycin Day #: 2
Indication: Pulmonary/Respiratory
Requesting Provider: Dr. Whiteside
Pertinent Antimicrobial Allergies:
clarithromycin - tachycardia
Height / Weight:
Height 5 ft
Actual Weight 64.1 kg
Pertinent Past Medical History: DM 2
- Vital Signs / Lab Results
Temp Pulse Resp BP Pulse Ox
98.4 F 82 18 116/94 98
08/19/23 07:00 08/19/23 02:00 08/19/23 02:00 08/19/23 02:00 08/19/23 04:00
Lab Results - Hematology
08/17/23 08/18/23 08/19/23
21:23 05:25 06:00
WBC 6.2 4.6 L 4.8
Lab Results - Chemistry
08/17/23 08/18/23
21:23 05:25
BUN 36 H 34 H
Creatinine 2.0 H 2.1 H
Estimated Creat Clear
Albumin 3.1 L 2.6 L
08/17/23 08/18/23
21:23 01:30
Lactic Acid 0.8 Cancelled
Lab Results - Urine
08/18/23
11:25
Urine Nitrite (Reflex) Negative
Leukocyte Esterase Rfl 2+ A
Ur Squamous Epith Cells 0-2
Microbiology Results
08/17/23 21:23 Blood Culture - Preliminary
Blood/Venous No Growth in 24 hours- Final report to follow
08/17/23 22:00 Blood Culture - Preliminary
Blood/Venous Positive culture in progress
Gram Stain - Preliminary
08/18/23 11:25 Gram Stain - Preliminary
Bronch Left Lower Lobe
Therapeutic Drug Monitoring
Random Vancomycin 16.5 ug/ml 08/19/23 05:39
[2023-08-19 08:12] LABS: Glucose - Point of Care 95 mg/dl (70-99)
--- NOTE | 2023-08-19 08:20 | W.PN.HOSP.TC ---
Today's Communication/Plan
-
see bold
Assessment / Plan
Assessment / Plan
Gen: NAD, Awake and alert, appears chronically ill
Eyes: EOMI, PERRLA, no scleral icterus.
Neck: supple.
CV: remains RRR, +S1/S2, no m/r/g.
Resp: remains CTAB, no rales, wheezes, or rhonchi.
Abd: +BS, soft, NT, ND
Skin: No rashes.
Neuro: CN 2-12 intact, non-focal.
Psych: Normal mood and affect.
08/17/23 21:23 Blood/Venous Blood Culture - Preliminary
No Growth in 24 hours- Final report to follow
08/17/23 22:00 Blood/Venous Blood Culture - Preliminary
Positive culture in progress
08/17/23 22:00 Blood/Venous Gram Stain - Preliminary
08/18/23 11:25 Bronch Left Lower Lobe Gram Stain - Preliminary
CT chest:
1. Occluded left main stem bronchus, presumably secondary to mucous plugging, with complete atelectasis of the left lung and left-sided volume loss. Small to moderate-sized left-sided pleural effusion.
2. Small to moderate right pleural effusion with adjacent compressive atelectasis. Nonspecific scattered interstitial opacities within the aerated portions of the right lung.
3. Moderate cardiomegaly with pericardial effusion.
Echo: EF 60-65%. No RWMA. Mild concentric left ventricular hypertrophy. Normal diastolic function. Normal right ventricular size and function. Normal atria. Mild tricuspid regurgitation. Estimated pulmonary artery pressure of 37 mmHg assuming a
right atrial pressure of 3 mmHg. Small pericardial effusion without evidence of hemodynamic compromise. When compared to prior study on 03/22/2022, there is no significant change.
Acute on chronic hypercapnic/hypoxemic respiratory failure:
-due to near opacification of the left hemithorax likely secondary to mucous plugging/atelectasis versus large left pleural effusion/pneumonia
-h/o chronic hypercapnic/hypoxemic respiratory failure secondary to COVID in 2019 on baseline 0.5 L trach collar during the day, ventilator at nighttime
-Chest x-ray shows progressive near complete opacification throughout the left hemithorax
-ABG on admission showed hypercarbia/hypoxemic respiratory failure pCO2 52, pH 7.24, pO2 59
-BiPAP/PSV, currently on 3L TC
-CT chest above
-s/p emergency bronchoscopy 08/18/23AM. No large mucous plug bilaterally. Lingula had significant secretions and BAL was performed.
-cont Mucomyst/duonebs
-pulm following
-currently on empiric vancomycin, Zosyn (G[employer] LE[employer] INSPECTOR HELPER in BCx is most likely contaminant)
-follow MRSA screen
-cont to follow BCxs/BAL Cxs
CHINTAN:
-was on IVFs
-renal following
-holding ACEi
-AM Cr pending
Anemia of chronic disease and Fe deficiency:
-transfuse 2U pRBCs
-Continue iron supplement
Other problems:
DM2: cont Lantus/SSI/accuchecks
Hx of small to moderate pericardial effusion
Essential hypertension: cont Norvasc/doxazosin. Holding lisinopril.
Hyperlipidemia: Continue statin
Coronary artery disease status post angioplasty: cont ASA/BB
h/o C. diff
Ambulatory dysfunction wheelchair-bound since June 2019
Spinal stenosis
FULL/heparin
Total time spent on today's encounter was 50 minutes which included time spent in counseling the patient/family regarding diagnosis and treatment plan as listed above, goals of care, and symptom management. Case was discussed with nursing staff,
specialists, and care coordinators/case management. All labs and imaging personally reviewed by me. Remainder the time spent in detailed review of previous records, lab data, imaging, and other medical provider documentation.
Anticipated Discharge: > 48 hours
Subjective/Interval History
-
Date of Service: August 19, 2023
Denies CP/SOB.
Objective Data
-
Labs:
Laboratory Results
08/19/23
06:00
WBC 4.8
Hgb 6.9 L*
Hct 22.6 L
Plt Count 189
Vital Signs:
Vital Signs
Temp Pulse Resp BP Pulse Ox
98.4 F 82 18 116/94 98
08/19/23 07:00 08/19/23 02:00 08/19/23 02:00 08/19/23 02:00 08/19/23 04:00
I&O
08/18/23 08/19/23 08/20/23
06:59 06:59 06:59
Intake Total 320 / 320 675 / 675
Output Total 460 / 460
Balance 320 / 320 215 / 215
[2023-08-19] MEDS: VITAMIN D3 (cholecalciferol) 25 MCG PO (09:09)
[2023-08-19] MEDS: FEOSOL 325 MG PO ×2 (09:09→20:28)
[2023-08-19] MEDS: ASPIR LOW (ENTERIC COATED) 81 MG PO (09:10)
[2023-08-19] MEDS: MUCINEX 600 MG PO ×2 (09:10→20:28)
[2023-08-19] MEDS: HEPARIN 5000 UNITS SC ×2 (09:10→20:28)
[2023-08-19] MEDS: NORVASC 5 MG PO (09:10)
[2023-08-19] MEDS: VITAMIN B-12 1000 MCG PO (09:10)
[2023-08-19] MEDS: LOPRESSOR 50 MG PO ×2 (09:12→20:28)
[2023-08-19 09:49] LABS: Blood Urea Nitrogen 31 mg/dl (7-17); Calcium 7.8 mg/dl (8.4-10.2); Carbon Dioxide 21 mmol/L (22-30); Chloride 118 mmol/L (98-107); Estimated Creatinine Clearance 23 ml/min; Glucose 92 mg/dl (70-99); Potassium 4.2 mmol/L (3.5-5.1); Sodium 144 mmol/L (135-145); eGFR 25.83
[2023-08-19 11:50] LABS: Glucose - Point of Care 117 mg/dl (70-99)
--- NOTE | 2023-08-19 13:16 | W.PN.NEPH.PH ---
Today's Communication / Plan
-
- trend BMPs
Assessment/Plan
-
IMP:
Acute on chronic hypercapnic/hypoxemic respiratory failure
-h/o chronic hypercapnic/hypoxemic respiratory failure secondary to COVID in 2019 on baseline 0.5 L trach collar during the day, ventilator at nighttime
CHINTAN
Anemia of chronic disease
mild hypernatremia
bilat pleural effusion
IDDM2
Hx of small to moderate pericardial effusion
Essential hypertension
Hyperlipidemia
Coronary artery disease status post angioplasty
h/o C. diff
Ambulatory dysfunction wheelchair-bound since June 2019
Spinal stenosis
h/o K stone
Hypoalbuminemia
Plan:
A?w hypoxia and confusion with acute resp failure
CHINTAN-baseline cr at 1 in 2022, stable at 2.1 with oliguria
UA with UTI, urine with e.coli.
KUS pending
she seem to have albuminuria suspect underlying ?diabetic nephropathy. UPCR at 8.7
paraproteinuria workup pending
echo for f/u of pericardial effusion, was present in 2022
note that she was started on Mounjaro in last 6months- recent cr value not available
avoid nephrotoxins and adjust meds renally
Bp stable with out hypotension , holding ACEI, cont Amlodipine and Doxazosin
anemia-check fe panel, b12,folate and paraprotein w/u
prn transfusion, may benefit from BARB
corrected jannie is normal , check vit d
DM-on insulin, hold mounjaro and metformin
expect to improve hypernatremia now that she is able to take po
BNP elevated, off fluids
d/w pt , and daughter
-
-
Date of Service: August 19, 2023
CC / HPI / ROS
-
Chief Complaint:
CHINTAN
History of Present Illness:
Cr stable at 2.1
urine output slightly better
s/p emergency bronchoscopy
Review of Systems:
feeling improved today
Labs
-
Labs:
WBC 4.8 10^3/uL (4.8-10.8) 08/19/23 06:00
RBC 2.45 10^6/uL (4.20-5.40) L 08/19/23 06:00
Hgb 6.9 g/dL (12.0-16.0) L* 08/19/23 06:00
Hct 22.6 % (37.0-47.0) L 08/19/23 06:00
Plt Count 189 10^3/uL (130-400) 08/19/23 06:00
Sodium 144 mmol/L (135-145) 08/19/23 09:14
Potassium 4.2 mmol/L (3.5-5.1) 08/19/23 09:14
Chloride 118 mmol/L (98-107) H 08/19/23 09:14
Carbon Dioxide 21 mmol/L (22-30) L 08/19/23 09:14
BUN 31 mg/dl (7-17) H 08/19/23 09:14
Creatinine 2.1 mg/dL (0.6-1.0) H 08/19/23 09:14
eGFR 25.83 08/19/23 09:14
Glucose 92 mg/dl (70-99) 08/19/23 09:14
Calcium 7.8 mg/dl (8.4-10.2) L 08/19/23 09:14
Gwk-R-Wqyxglgbren Pept 98568 pg/ml 08/18/23 05:25
Albumin 2.6 g/dl (3.5-5.0) L 08/18/23 05:25
Physical Exam
-
Vital Signs:
Vital Signs
Temp Pulse Resp BP Pulse Ox
98.4 F 88 23 110/66 97
08/19/23 11:47 08/19/23 12:00 08/19/23 12:00 08/19/23 12:00 08/19/23 12:00
Cardiovascular:: Regular rate and rhythm
Respiratory:: Bilateral: Coarse
Lung Excursion:: Normal
Abdomen:: Nontender and Soft
Bowel Sounds:: Normal
Extremity Edema:: +1: Bilateral:
Bond Catheter: No
--- NOTE | 2023-08-19 14:42 | W.PN.PUL3 ---
Today's Communication / Plan
-
Continue secretion clearance intervention
Nocturnal mechanical ventilation
Tracheotomy care
Nebulizers as needed
Mucomyst nebulizer
Limit IV fluids
Discontinue vancomycin
Continue Zosyn, follow culture sensitivities.
If hypoxemia continues consider diuretics as proBNP is elevated
Assessment
-
Patient is a 62-year-old female status post Covid/ECMO/tracheostomy tube with recurrent hospitalizations for hypercapnic and hypoxemic respiratory failure presented with hypoxemia, hypercapnia, mental status changes, and left lung opacification with
suspected mucous plug and pulmonary was consulted for atelectasis/mucous plug/respiratory failure on 08/17/2023.
Hypoxemic and hypercapnic respiratory failure due to mucous plug/left lung atelectasis
ABG 08/17/2023--52/59/7 0.24
Mucous plug/left lung atelectasis
Status post emergent bronchoscopy at the bedside 08/18/2023-mucous plugs removed from the left
Pneumonia
Left pleural effusion
CHINTAN
Xqxviq-cxpzillksl-eofsphewnr 7.0
Hypocalcemia
Hypernatremia
Metabolic and respiratory acidosis
Conditions present prior to admission:
Chronic hypercapnic/hypoxemic respiratory failure/chronic tracheostomy/nocturnal ventilation.
Severe Covid/ECMO 2019.
Diabetes.
Hypertension.
CAD/angioplasty 2020.
Recurrent UTI.
Ambulatory dysfunction/wheelchair-bound.
Chronic anemia.
Overweight.
Renal calculi.
Laparoscopic cholecystectomy 07/2020. Bilateral ureteroscopy with lithotripsy of the right renal stone and clearing of left renal pelvic fungal ball. Laminectomy. .
Plan
Clinically improved today
On Passy-Arianna valve and tolerating well.
Does not appear in distress
No additional supplemental oxygen need
-
Respiratory decompensation due to mucous plug and complete left lung atelectasis-note moderate pleural effusion on the left as well.
Emergent bronchoscopy performed 08/18/2023 with some mucous plugs removed
Transition to nocturnal mechanical ventilation.
Chest x-ray 08/19/2023: Reviewed, improved aeration of the left lung. Findings compatible with improved mucous plugging/atelectasis. No significant pleural effusion noted.
-
Nebulizers as needed
continue mucolytic's nebulized Mucomyst for now
Routine tracheotomy care
Aspiration precautions
Afebrile without leukocytosis.
Hemodynamically stable.
Urine culture with E. coli
Bronchoscopy culture with Proteus species
Will wait for sensitivities
Empiric antibiotics-Zosyn
Negative MRSA screening
Okay to discontinue vancomycin 08/19/2023
Acute kidney injury:
Monitor renal function
Nephrology following, evaluation undergoing
With increased proBNP 14,500, bilateral pleural effusion on CAT scan.
Degree of volume overload a possibility
Limit IV fluid
Monitor hemoglobin
Transfuse as needed
DVT prophylaxis-on subcu heparin
Early mobilization/bedside range of motion-baseline wheelchair-bound and ambulatory dysfunction
The patient was last seen in the pulmonary office by Kalpana Mobley NP 06/01/2023 and has an appointment 09/07/2023 at 10:[address] Treviño updated family at the bedside 08/19/2023

Diagnostic data:
CXR 04-27, reviewed, L basilar atelectasis
CXR 04-19, resolved total L atelectasis, currently back to chronic L basilar atelectasis. New tracheostomy
CXR 04-16, portable, L basilar atelectasis
CXR 04/11/22- . Complete opacification of the left hemithorax, likely on the basis of a large pleural effusion and compressive atelectasis upon the left lung. Mild right basilar pneumonia suspected
Chest x-ray 08/17/2023-near complete opacification throughout the left Jovanni thorax
Echocardiogram 01/10/22-EF 60-65%, no significant valvular disease, small pericardial effusion
Echocardiogram 03/22/22: Normal left ventricular chamber size. Normal left ventricular systolic�function. Normal regional wall motion. Normal left ventricular wall thickness.�Left ventricular ejection fraction is 60-65%. Mild tricuspid
regurgitation.�Small to moderate pericardial effusion without evidence of hemodynamic�compromise.�Compared to the previous echo Dec 2021, there is no significant change.
CT CHEST 04/11/22- �A moderate to large left pleural effusion and complete collapse/atelectasis of the left lung account for the left hemithorax opacification on the prior chest radiograph. Findings are in part likely secondary to mucous plugging
given the presence of opacification of the left mainstem bronchus and left upper and lower lobe bronchi, patchy opacifications right middle and lower lobe suspicious for pneumonia, moderate right pleural effusion and ill-defined sclerotic lesion
T12, osseous metastasis not completely excluded
CT CHEST 03/22/22 - There is no CT evidence for pulmonary embolism. No aortic dissection.There are extremely large bilateral pleural effusions right greater than left and associated bilateral consolidation most prominent in the left lower
lobe.Cardiomegaly. Increased pericardial effusion.
CT chest 08/17/2023-occluded left mainstem bronchus presumably mucous plugs with complete atelectasis left lung moderate size left pleural effusion, small to moderate right pleural effusion
VSE 04/28/22: No aspiration. Laryngeal penetration with cough with thin liquids by cup.
Spirometry 09/09/21-FEV1 790 mL-36%, FVC 790 mL 27%. Some difficulties with maneuver and thus may offer unreliability. Severe restriction.�������
PFT 02/08/22-FVC 1.01/30%, FEV1 0.70/35%, ratio 69%, unable to perform lung volumes and diffusing capacity.
Subjective Data
-
Date of Service:
Date of Service: August 19, 2023
Chief Complaint: Pulmonary Follow Up (Pneumonia/mucous plug)
Subjective:
Denies shortness of breath
Denies chest pain
Review of Systems
Cardiopulmonary: Dyspnea (none at rest)
Objective Data
Data Reviewed
Vital Signs / I&O / Oxygen:
Vital Signs
Temp Pulse Resp BP Pulse Ox
98.7 F 86 29 131/106 96
08/19/23 13:51 08/19/23 14:26 08/19/23 14:26 08/19/23 14:00 08/19/23 14:26
Intake and Output
08/18/23 08/19/23 08/20/23
06:59 06:59 06:59
Intake Total 320 / 320 675 / 675 790 / 790
Output Total 460 / 460
Balance 320 / 320 215 / 215 790 / 790
SaO2 [CPAP/PSV] 98
SaO2 96
Nasal Cannula flow liters per 3
minute
Physical Exam
General: Respiratory Distress (n) and Comfortable
HEENT: Normocephalic and Other (Tracheotomy tube in place. No significant secretion. No air leak. Well-healed)
Cardiovascular: S1-S2 and Regular Rhythm
Respiratory: Clear and Non-Labored Respirations
GI: Soft and Non Distended
Neurology: Awake
Skin: Warm
Labs/Micro/Reports
Lab Data
08/19/23 06:00
08/19/23 09:14
Microbiology
08/17/23 22:00 Blood/Venous Blood Culture - Preliminary
Coagulase neg. staphylococcus
Additional testing on request
08/17/23 22:00 Blood/Venous Gram Stain - Preliminary
08/18/23 11:25 Urine Urine Culture - Preliminary
Escherichia coli
08/18/23 11:25 Bronch Left Lower Lobe Respiratory Culture - Preliminary
Proteus species
08/18/23 11:25 Bronch Left Lower Lobe Gram Stain - Preliminary
08/18/23 06:21 Nose MRSA Screen - Final
No Methicillin Resistant Staphylococcus aureus isolated.
08/17/23 21:23 Blood/Venous Blood Culture - Preliminary
No Growth in 24 hours- Final report to follow
[2023-08-19 16:39] LABS: Glucose - Point of Care 135 mg/dl (70-99)
[2023-08-19] MEDS: LIPITOR 20 MG PO (17:54)
--- NOTE | 2023-08-19 18:02 | PTCARENOTE ---
2 units PRBCs transfused w/o issue.
[2023-08-19] MEDS: LANTUS 0.100000000000000006 UNITS SC (20:27)
[2023-08-19] MEDS: CARDURA 1 MG PO (20:28)
[2023-08-19 20:37] LABS: Glucose - Point of Care 130 mg/dl (70-99)
[2023-08-20] VITALS (11 sets, daily range): BP systolic 132–178; BP diastolic 59–93
[2023-08-20] MEDS: MUCOMYST 10% 2 ML INH ×3 (02:02→19:30)
[2023-08-20 04:06] LABS: % Basophils 0.5 % (0-2); % Eosinophils 2.9 % (0-6); % Immature Granulocytes 0.3 % (0-0.5); % Lymphocytes 12.7 % (20.5-51.1); % Neutrophils 77.6 % (42.2-75.2); Absolute Eosinophils 0.2 10^3/uL (0-0.7); Absolute Lymphocytes 0.8 10^3/uL (1.2-3.4); Absolute Monocytes 0.4 10^3/uL (0.1-0.6); Absolute Neutrophils 5.1 10^3/uL (1.4-6.5); Hematocrit 30.4 % (37.0-47.0); Mean Corp Hgb Conc. 31.9 g/dL (33.0-37.0); Mean Corpuscular Hgb 28.5 pg (27.0-31.0); Mean Corpuscular Volume 89.4 fL (81.0-99.0); Nucleated Red Blood Cells % 0 %; Platelet Count 201 10^3/uL (130-400); Red Cell Dist. Width 15.1 % (11.5-14.5); White Blood Cell Count 6.5 10^3/uL (4.8-10.8)
[2023-08-20 04:22] LABS: Vancomycin Random 14.3 ug/ml
[2023-08-20 04:24] LABS: Hemoglobin 9.7 g/dL (12.0-16.0)
[2023-08-20 04:30] LABS: Blood Urea Nitrogen 31 mg/dl (7-17); Calcium 8.1 mg/dl (8.4-10.2); Carbon Dioxide 21 mmol/L (22-30); Chloride 119 mmol/L (98-107); Estimated Creatinine Clearance 22 ml/min; Glucose 99 mg/dl (70-99); Potassium 4.1 mmol/L (3.5-5.1); Sodium 147 mmol/L (135-145); eGFR 24.42
[2023-08-20] MEDS: ZOSYN 50 IV ×2 (05:29→12:18)
--- NOTE | 2023-08-20 05:33 | PTCARENOTE ---
No acute events overnight. Remained on the vent. See nursing ventilator checks. Am hgb 9.7.
[2023-08-20] MEDS: DUONEB 3 ML INH ×3 (08:36→19:30)
[2023-08-20 09:03] LABS: Glucose - Point of Care 97 mg/dl (70-99)
[2023-08-20] MEDS: NORVASC 5 MG PO (09:05)
[2023-08-20] MEDS: HEPARIN 5000 UNITS SC ×2 (09:06→20:26)
[2023-08-20] MEDS: ASPIR LOW (ENTERIC COATED) 81 MG PO (09:06)
[2023-08-20] MEDS: FEOSOL 325 MG PO ×2 (09:06→20:25)
[2023-08-20] MEDS: MUCINEX 600 MG PO (09:06)
[2023-08-20] MEDS: LOPRESSOR 50 MG PO ×2 (09:06→20:26)
[2023-08-20] MEDS: VITAMIN D3 (cholecalciferol) 25 MCG PO (09:06)
[2023-08-20] MEDS: VITAMIN B-12 1000 MCG PO (09:06)
--- NOTE | 2023-08-20 10:41 | W.PN.HOSP.TC ---
Today's Communication/Plan
-
see bold
Assessment / Plan
Assessment / Plan
Gen: NAD, Awake and alert, appears chronically ill
Eyes: EOMI, PERRLA, no scleral icterus.
Neck: supple.
CV: continues to remain RRR, +S1/S2, no m/r/g.
Resp: continues to remain CTAB, no rales, wheezes, or rhonchi.
Abd: +BS, soft, NT, ND
Skin: No rashes.
Neuro: remains CN 2-12 intact, non-focal.
Psych: Normal mood and affect.
08/18/23 11:25 Bronch Left Lower Lobe Respiratory Culture - Final
Proteus mirabilis
08/18/23 11:25 Bronch Left Lower Lobe Gram Stain - Final
08/18/23 11:25 Urine Urine Culture - Preliminary
Escherichia coli
08/17/23 21:23 Blood/Venous Blood Culture - Preliminary
No Growth in 48 hours- Final report to follow
08/17/23 22:00 Blood/Venous Blood Culture - Preliminary
Coagulase neg. staphylococcus
Additional testing on request
08/17/23 22:00 Blood/Venous Gram Stain - Preliminary
08/18/23 06:21 Nose MRSA Screen - Final
No Methicillin Resistant Staphylococcus aureus isolated.
CT chest:
1. Occluded left main stem bronchus, presumably secondary to mucous plugging, with complete atelectasis of the left lung and left-sided volume loss. Small to moderate-sized left-sided pleural effusion.
2. Small to moderate right pleural effusion with adjacent compressive atelectasis. Nonspecific scattered interstitial opacities within the aerated portions of the right lung.
3. Moderate cardiomegaly with pericardial effusion.
Echo: EF 60-65%. No RWMA. Mild concentric left ventricular hypertrophy. Normal diastolic function. Normal right ventricular size and function. Normal atria. Mild tricuspid regurgitation. Estimated pulmonary artery pressure of 37 mmHg assuming a
right atrial pressure of 3 mmHg. Small pericardial effusion without evidence of hemodynamic compromise. When compared to prior study on 03/22/2022, there is no significant change.
Renal U/S:
1. SEVERE BILATERAL RENAL DISEASE (left greater than right) which appears to have increased since 11/11/2021.
2. 4.8 mm nonobstructing left intrarenal calculus.
3. No sonographic evidence for hydronephrosis.
Acute on chronic hypercapnic/hypoxemic respiratory failure:
-due to near opacification of the left hemithorax likely secondary to mucous plugging/atelectasis versus large left pleural effusion/pneumonia
-h/o chronic hypercapnic/hypoxemic respiratory failure secondary to COVID in 2019 on baseline 0.5 L trach collar during the day, ventilator at nighttime
-Chest x-ray shows progressive near complete opacification throughout the left hemithorax
-ABG on admission showed hypercarbia/hypoxemic respiratory failure pCO2 52, pH 7.24, pO2 59
-BiPAP/PSV, currently on 3L TC
-CT chest above
-s/p emergency bronchoscopy 08/18/23. No large mucous plug bilaterally. Lingula had significant secretions and BAL was performed.
-cont Mucomyst/duonebs
-pulm following
-stop Vanco with NEG MRSA screen
-BAL Cx with proteus, UCx with E coli (question if actually UTI)
-currently on Zosyn
-reasonable to c/s ID for abx recs
CHINTAN:
-was on IVFs
-renal following
-holding ACEi
-renal U/S above
-Cr has not improved
-SPEP/UPEP pending
-renal following
Anemia of chronic disease and Fe deficiency:
-s/p 2U pRBCs
-Continue iron supplement
Other problems:
Hypernatremia: free water intake encouraged
DM2: cont Lantus/SSI/accuchecks
Hx of small to moderate pericardial effusion
Essential hypertension: cont Norvasc/doxazosin. Holding lisinopril.
Hyperlipidemia: Continue statin
Coronary artery disease status post angioplasty: cont ASA/BB
h/o C. diff
Ambulatory dysfunction wheelchair-bound since June 2019
Spinal stenosis
and daughter updated at bedside.
FULL/heparin
Total time spent on today's encounter was 51 minutes which included time spent in counseling the patient/family regarding diagnosis and treatment plan as listed above, goals of care, and symptom management. Case was discussed with nursing staff,
specialists, and care coordinators/case management. All labs and imaging personally reviewed by me. Remainder the time spent in detailed review of previous records, lab data, imaging, and other medical provider documentation.
Anticipated Discharge: 24 - 48 hours
Subjective/Interval History
-
Date of Service: August 20, 2023
Objective Data
-
Labs:
Laboratory Results
08/20/23
03:42
WBC 6.5
Hgb 9.7 L D
Hct 30.4 L
Plt Count 201
Sodium 147 H
Potassium 4.1
Chloride 119 H
Carbon Dioxide 21 L
BUN 31 H
Creatinine 2.2 H
Glucose 99
Calcium 8.1 L
Vital Signs:
Vital Signs
Temp Pulse Resp BP Pulse Ox
98.8 F 84 23 143/64 97
08/20/23 08:14 08/20/23 08:35 08/20/23 08:35 08/20/23 06:04 08/20/23 08:35
I&O
08/19/23 08/20/23 08/21/23
06:59 06:59 06:59
Intake Total 675 / 675 1140 / 1140
Output Total 460 / 460 500 / 500
Balance 215 / 215 640 / 640
--- NOTE | 2023-08-20 11:15 | W.PN.NEPH.PH ---
Today's Communication / Plan
-
- encourage PO fluids
Assessment/Plan
-
IMP:
Acute on chronic hypercapnic/hypoxemic respiratory failure
-h/o chronic hypercapnic/hypoxemic respiratory failure secondary to COVID in 2019 on baseline 0.5 L trach collar during the day, ventilator at nighttime
CHINTAN
Anemia of chronic disease
mild hypernatremia
bilat pleural effusion
IDDM2
Hx of small to moderate pericardial effusion
Essential hypertension
Hyperlipidemia
Coronary artery disease status post angioplasty
h/o C. diff
Ambulatory dysfunction wheelchair-bound since June 2019
Spinal stenosis
h/o K stone
Hypoalbuminemia
Plan:
A?w hypoxia and confusion with acute resp failure
CHINTAN-baseline cr at 1 in 2022, stable at 2.2 with oliguria
UA with UTI, urine with e.coli.
KUS with severe renal disease which might indicate that this is new baseline kidney function
she seem to have albuminuria suspect underlying ?diabetic nephropathy. UPCR at 8.7
paraproteinuria workup pending
note that she was started on Mounjaro in last 6months- recent cr value not available
avoid nephrotoxins and adjust meds renally
Bp stable with out hypotension , holding ACEI, cont Amlodipine and Doxazosin
anemia-check fe panel, b12,folate and paraprotein w/u
prn transfusion, may benefit from BARB
corrected jannie is normal, check vit d
Hypernatremic today, encouraged PO water. if she does not correct by tomorrow, we might need to initiate D5W
BNP elevated, off fluids
d/w pt , and daughter
-
-
Date of Service: August 20, 2023
CC / HPI / ROS
-
Chief Complaint:
CHINTAN
History of Present Illness:
Cr stable at 2.2
urine output slightly better
s/p emergency bronchoscopy
hypernatremia with Na of 147
Review of Systems:
feeling improved today
Labs
-
Labs:
WBC 6.5 10^3/uL (4.8-10.8) 08/20/23 03:42
RBC 3.40 10^6/uL (4.20-5.40) L 08/20/23 03:42
Hgb 9.7 g/dL (12.0-16.0) L D 08/20/23 03:42
Hct 30.4 % (37.0-47.0) L 08/20/23 03:42
Plt Count 201 10^3/uL (130-400) 08/20/23 03:42
Sodium 147 mmol/L (135-145) H 08/20/23 03:42
Potassium 4.1 mmol/L (3.5-5.1) 08/20/23 03:42
Chloride 119 mmol/L (98-107) H 08/20/23 03:42
Carbon Dioxide 21 mmol/L (22-30) L 08/20/23 03:42
BUN 31 mg/dl (7-17) H 08/20/23 03:42
Creatinine 2.2 mg/dL (0.6-1.0) H 08/20/23 03:42
eGFR 24.42 08/20/23 03:42
Glucose 99 mg/dl (70-99) 08/20/23 03:42
Calcium 8.1 mg/dl (8.4-10.2) L 08/20/23 03:42
Cvt-F-Jwwqftqdzug Pept 60299 pg/ml 08/18/23 05:25
Albumin 2.6 g/dl (3.5-5.0) L 08/18/23 05:25
Physical Exam
-
Vital Signs:
Vital Signs
Temp Pulse Resp BP Pulse Ox
98.8 F 84 23 143/64 97
08/20/23 08:14 08/20/23 08:35 08/20/23 08:35 08/20/23 06:04 08/20/23 08:35
Cardiovascular:: Regular rate and rhythm
Respiratory:: Bilateral: Coarse
Lung Excursion:: Normal
Abdomen:: Nontender and Soft
Bowel Sounds:: Normal
Extremity Edema:: +1: Bilateral:
Bond Catheter: No
--- NOTE | 2023-08-20 11:49 | W.PN.PUL3 ---
Today's Communication / Plan
-
Continue mucolytic's
Reduce Mucomyst nebulized to twice a day
As needed nebulizers
Tracheal care
Passy-[place] valve
Nocturnal mechanical ventilation as before admission
Continue pip-tazo for now-infectious disease was consulted
Assessment
-
Patient is a 62-year-old female status post Covid/ECMO/tracheostomy tube with recurrent hospitalizations for hypercapnic and hypoxemic respiratory failure presented with hypoxemia, hypercapnia, mental status changes, and left lung opacification with
suspected mucous plug and pulmonary was consulted for atelectasis/mucous plug/respiratory failure on 08/17/2023.
Hypoxemic and hypercapnic respiratory failure due to mucous plug/left lung atelectasis
ABG 08/17/2023--52/59/7 0.24
Mucous plug/left lung atelectasis
Status post emergent bronchoscopy at the bedside 08/18/2023-mucous plugs removed from the left
Pneumonia
Left pleural effusion
CHINTAN
Zorvrl-[id number]-oqypfcgyjx 7.0
Hypocalcemia
Hypernatremia
Metabolic and respiratory acidosis
Conditions present prior to admission:
Chronic hypercapnic/hypoxemic respiratory failure/chronic tracheostomy/nocturnal ventilation.
Severe Covid/ECMO 2019.
Diabetes.
Hypertension.
CAD/angioplasty 2020.
Recurrent UTI.
Ambulatory dysfunction/wheelchair-bound.
Chronic anemia.
Overweight.
Renal calculi.
Laparoscopic cholecystectomy 07/2020. Bilateral ureteroscopy with lithotripsy of the right renal stone and clearing of left renal pelvic fungal ball. Laminectomy. .
Plan
From the respiratory perspective clinically stable overnight.
Continues to tolerate [place].
Does not appear in distress
No additional supplemental oxygen need
-
Respiratory decompensation due to mucous plug and complete left lung atelectasis-note moderate pleural effusion on the left as well.
Emergent bronchoscopy performed 08/18/2023 with some mucous plugs removed
Continue nocturnal mechanical ventilation.
Chest x-ray 08/19/2023: improved aeration of the left lung. Findings compatible with improved mucous plugging/atelectasis. No significant pleural effusion noted.
-
Continue secretion clearance intervention,
Nebulizers as needed
Will reduce Mucomyst nebulized to twice a day.
Routine tracheotomy care
Aspiration precautions
Afebrile without leukocytosis.
Hemodynamically stable.
Urine culture with E. coli
Bronchoscopy culture: Proteus mirabilis-pansensitive.
Continue antibiotics-Zosyn
Infectious disease was consulted for antibiotic guidance given sputum and urine culture.
Unclear whether UTI is present.
Negative MRSA screening
Discontinued vancomycin 08/19/2023
Acute kidney injury/chronic kidney disease-stable last few days.
Monitor renal function
Nephrology following,-based on ultrasound has chronic kidney disease. Suspect new baseline.
With increased proBNP 14,500, bilateral pleural effusion on CAT scan.
Degree of volume overload a possibility
Continue to limit IV fluids per
Monitor hemoglobin-Status post 1 unit packed red blood cells during this admission.
Last hemoglobin 9.7 on 08/20/2023.
DVT prophylaxis-on subcu heparin
Early mobilization/bedside range of motion-baseline wheelchair-bound and ambulatory dysfunction
The patient was last seen in the pulmonary office by Kalpana Mobley [employer] 06/01/2023 and has an appointment 09/07/2023 at 10:[address] Treviño updated family at the bedside 08/19/2023
-
Pulmonary will continue to follow for ventilator management. Currently on nocturnal mechanical ventilation which is her baseline. Overall clinically improved
Hopefully discharge planning soon.

Diagnostic data:
CXR 04-27, reviewed, L basilar atelectasis
CXR 04-19, resolved total L atelectasis, currently back to chronic L basilar atelectasis. New tracheostomy
CXR 04-16, portable, L basilar atelectasis
CXR 04/11/22- 1. Complete opacification of the left hemithorax, likely on the basis of a large pleural effusion and compressive atelectasis upon the left lung. Mild right basilar pneumonia suspected
Chest x-ray 08/17/2023-near complete opacification throughout the left Jovanni thorax
Echocardiogram 01/10/22-EF 60-65%, no significant valvular disease, small pericardial effusion
Echocardiogram 03/22/22: Normal left ventricular chamber size. Normal left ventricular systolic�function. Normal regional wall motion. Normal left ventricular wall thickness.�Left ventricular ejection fraction is 60-65%. Mild tricuspid
regurgitation.�Small to moderate pericardial effusion without evidence of hemodynamic�compromise.�Compared to the previous echo Dec 2021, there is no significant change.
CT CHEST 04/11/22- �A moderate to large left pleural effusion and complete collapse/atelectasis of the left lung account for the left hemithorax opacification on the prior chest radiograph. Findings are in part likely secondary to mucous plugging
given the presence of opacification of the left mainstem bronchus and left upper and lower lobe bronchi, patchy opacifications right middle and lower lobe suspicious for pneumonia, moderate right pleural effusion and ill-defined sclerotic lesion
T12, osseous metastasis not completely excluded
CT CHEST 03/22/22 - There is no CT evidence for pulmonary embolism. No aortic dissection.There are extremely large bilateral pleural effusions right greater than left and associated bilateral consolidation most prominent in the left lower
lobe.Cardiomegaly. Increased pericardial effusion.
CT chest 08/17/2023-occluded left mainstem bronchus presumably mucous plugs with complete atelectasis left lung moderate size left pleural effusion, small to moderate right pleural effusion
VSE 04/28/22: No aspiration. Laryngeal penetration with cough with thin liquids by cup.
Spirometry 09/09/21-FEV1 790 mL-36%, FVC 790 mL 27%. Some difficulties with maneuver and thus may offer unreliability. Severe restriction.�������
PFT 02/08/22-FVC 1.01/30%, FEV1 0.70/35%, ratio 69%, unable to perform lung volumes and diffusing capacity.
Subjective Data
-
Date of Service:
Date of Service: August 20, 2023
Chief Complaint: Pulmonary Follow Up (Pneumonia/mucous plug)
Subjective:
No new overnight events
Tolerating Passy-Arianna valve
Nocturnal mechanical ventilation
Review of Systems
General: Fever (n)
Cardiopulmonary: Dyspnea (n) and Cough (n)
GI: Abdominal Pain (n)
Objective Data
Data Reviewed
Vital Signs / I&O / Oxygen:
Vital Signs
Temp Pulse Resp BP Pulse Ox
98.8 F 84 23 143/64 97
08/20/23 08:14 08/20/23 08:35 08/20/23 08:35 08/20/23 06:04 08/20/23 08:35
Intake and Output
08/19/23 08/20/23 08/21/23
06:59 06:59 06:59
Intake Total 675 / 675 1140 / 1140
Output Total 460 / 460 500 / 500
Balance 215 / 215 640 / 640
SaO2 [CPAP/PSV] 94
SaO2 97
Nasal Cannula flow liters per 4
minute
Physical Exam
General: Respiratory Distress (n) and Comfortable
HEENT: Normocephalic and Other (Tracheotomy tube in place. No significant secretion. No air leak. Well-healed)
Cardiovascular: S1-S2 and Regular Rhythm
Respiratory: Clear and Non-Labored Respirations
GI: Soft and Non Distended
Neurology: Awake
Skin: Warm
Labs/Micro/Reports
Lab Data
08/20/23 03:42
08/20/23 03:42
Microbiology
08/18/23 11:25 Bronch Left Lower Lobe Respiratory Culture - Final
Proteus mirabilis
08/18/23 11:25 Bronch Left Lower Lobe Gram Stain - Final
08/18/23 11:25 Urine Urine Culture - Preliminary
Escherichia coli
08/17/23 21:23 Blood/Venous Blood Culture - Preliminary
No Growth in 48 hours- Final report to follow
08/17/23 22:00 Blood/Venous Blood Culture - Preliminary
Coagulase neg. staphylococcus
Additional testing on request
08/17/23 22:00 Blood/Venous Gram Stain - Preliminary
08/18/23 06:21 Nose MRSA Screen - Final
No Methicillin Resistant Staphylococcus aureus isolated.
[2023-08-20 13:07] LABS: Glucose - Point of Care 145 mg/dl (70-99)
--- NOTE | 2023-08-20 13:18 | CON.ID ---
Consultation
-
Date/Time Consultation Requested: 08/20/2023 1045
Date/Time Consultation Performed: 08/20/2023 1250
Requesting Provider: Dr. Yuan
Performing Provider: Dr. Pelletier
Reason for Consultation: Pneumonia
Chief Complaint / Past History
History of Present Illness
Shruti Rockwell is a 62-year-old female being evaluated at the request of Dr. Yuan in regards to pneumonia. History is obtained from chart review, along with patient interview, with the majority of history obtained from the patient's daughter who was at
the bedside.
The patient has had significant respiratory issues since developing COVID in 2019, which at that time required ECMO therapy. Last year because of CO2 retention a tracheostomy was placed. She currently is on p.m. ventilation support. Per the
daughter, for the few days prior to admission she appeared more lethargic, more sleepy, and often staring off into space. They report that these are often symptoms of elevated CO2 levels. Additionally, they noticed increased work of breathing.
Prior to admission she was not having any cough and there were no reported fevers or chills.
Workup in the emergency room did not reveal leukocytosis, but did show near opacification of the left hemithorax suspected secondary to mucous plugging. Since admission she has undergone bedside bronchoscopy, with the finding of moderate secretions
but no large plugging noted. Respiratory cultures were sent, and now reveal the presence of Proteus mirabilis. Infectious Diseases asked to comment upon further antimicrobial management.
Past History
Additional Past Medical History:
Chronic respiratory failure following COVID (2019); with Hx ECMO, current PM vent support
CAD
HTN
DM
Anemia
Dyslipidemia
Additional Past Surgical History:
Cardiac catheterization
Cholecystectomy
Allergy History:
clarithromycin Allergy (Verified 04/11/22 16:58)
TACHYCARDIA
Medications Reviewed: Yes
Current Antibiotics:
Zosyn 2.25 g IV every 6 hours
Social History
Tobacco: Non-Smoker
Drug: None
Personal:
Living: With Family
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
Family History
Family History: Not Pertinent
Review of Systems
Vital Signs
Temp Pulse Resp BP Pulse Ox
98.8 F 84 23 143/64 97
08/20/23 08:14 08/20/23 08:35 08/20/23 08:35 08/20/23 06:04 08/20/23 08:35
Physical Exam
Physical Exam
Constitutional: No Acute Distress, Comfortable, Chronically Ill and Non-toxic
Head: Normocephalic
Eyes: Pupils Equal, Pupils Round, No Conjunctival Hemorrhage and Sclera Anicteric
Pharynx: Other (Trach in place.)
Oral: No Thrush and No Ulcers
Cardiovascular: Regular Rate and S1/S2; Negative S3/S4 or Murmur
Pulmonary: Rhonchi (Few; scattered), Coarse and Non Labored
Gastrointestinal: Soft, Non Tender, Non Distended, Normal Bowel Sounds, No Rebound and No Guarding
Extremities: Edema; Negative Cyanosis or Erythema
Skin: Warm and Dry; Negative Rash
Neurological: Awake and Alert
Psychological: Calm
.
Lab / Diagnostic Study Results
08/20/23 03:42
08/20/23 03:42
Abs Immat Gran (auto) 0.0 10^3/uL (0-0.05) 08/20/23 03:42
Absolute Neuts (auto) 5.1 10^3/uL (1.4-6.5) 08/20/23 03:42
Absolute Lymphs (auto) 0.8 10^3/uL (1.2-3.4) L 08/20/23 03:42
Absolute Monos (auto) 0.4 10^3/uL (0.1-0.6) 08/20/23 03:42
Absolute Basos (auto) 0.0 10^3/uL (0-0.2) 08/20/23 03:42
Immature Gran % 0.3 % (0-0.5) 08/20/23 03:42
Neutrophils % 77.6 % (42.2-75.2) H 08/20/23 03:42
Lymphocytes % 12.7 % (20.5-51.1) L 08/20/23 03:42
Monocytes % 6.0 % (1.7-9.3) 08/20/23 03:42
Eosinophils % 2.9 % (0-6) 08/20/23 03:42
Basophils % 0.5 % (0-2) 08/20/23 03:42
Lactic Acid Cancelled 08/18/23 01:30
Ur Squamous Epith Cells 0-2 /LPF (Few) 08/18/23 11:25
Microbiology Results
Micro:
08/18/23 11:25 Urine Culture - Final
Urine Escherichia coli
08/18/23 11:25 Respiratory Culture - Final
Bronch Left Lower Lobe Proteus mirabilis
Gram Stain - Final
08/17/23 21:23 Blood Culture - Preliminary
Blood/Venous No Growth in 48 hours- Final report to follow
08/17/23 22:00 Blood Culture - Preliminary
Blood/Venous Coagulase neg. staphylococcus
Additional testing on request
Gram Stain - Preliminary
08/18/23 06:21 MRSA Screen - Final
Nose No Methicillin Resistant Staphylococcus aureus isolated.
Imaging:
08/19/2023 Renal ultrasound: Severe bilateral renal disease (left > right), increased since 2021. 4.8 mm nonobstructing left intrarenal calculus noted. No evidence for hydronephrosis.
08/19/2023 CXR (portable): Improved inflation of the left lung, with findings compatible with improvement in mucous plugging and atelectasis.
08/17/2023 CT chest without contrast: Occluded left mainstem bronchus presumably secondary to mucous plugging with complete atelectasis of the left lung and left-sided volume loss. Small to moderate right pleural effusion is noted. Please see full
dictation for additional detail.
Assessment / Plan
Left lung white out presumably secondary to mucous plugging
- s/p bronchoscopy
Bronchitis +/- PNA 2* Proteus mirabilis
Chronic respiratory failure
Hypernatremia
CKD
Bacteriuria with E. coli
CAD
HTN
DM
Anemia
Dyslipidemia
Recommendations:
Sensitivity patterns of recovered isolate is reviewed.
Narrow antibiotics to Unasyn 3 g IV every 12 hours
Monitor white count and temperature curve.
[2023-08-20] MEDS: UNASYN IV (14:11)
[2023-08-20 14:37] LABS: B.E. -7.3 mmol/L; HCO3 22.6 mmol/L (21-28); O2 Saturation % 98.4 % (94-98); PCO2 68 mmHg (32-35); PO2 89 mmHg (83-108)
--- NOTE | 2023-08-20 14:38 | PTCARENOTE ---
pt daughter rang call giles stating pt seems more lethargic. Pt explained that she was experiencing some SOB. RT called to bedside to give pt PRN nebulizer treatment. SpO2 desating into 60s. Dr. Yuan called to bedside. Portable chest xray ordered.
ABG ordered. Dr Treviño updated.
--- NOTE | 2023-08-20 14:40 | W.PN.UPDATE ---
Update Note
Progress Note Update
Patient developed acute hypoxemia, tachypnea and hypertension.
Suction aggressively.
Placed back on ventilator.
Will decrease FiO2 to maintain pulse ox at 90%. Currently 99% at 60% FiO2. Discussed with respiratory therapist.
Now improved oxygenation. More comfortable.
Not bronchospastic on exam.
Chest x-ray 08/20/2023: To my view appears similar to prior. Perhaps patient had a mucous plug that opened up with suctioning and mechanical ventilation.
Will keep mechanical ventilation for the rest of the day.
Tomorrow may place back on trach collar and [place] valve.
Will continue to monitor closely.
Discussed with family members at the bedside.
Continue with current care for now.
[2023-08-20 14:44] LABS: pH 7.13 (7.35-7.45)
[2023-08-20] MEDS: LIPITOR PO (16:33)
[2023-08-20 16:57] LABS: Glucose - Point of Care 135 mg/dl (70-99)
--- NOTE | 2023-08-20 16:58 | RESPNOTE ---
At 1330 got a tiger text from nurse if I could come see the patient who was still on PMV at 3 liters and sats were in low 90's and feels SOB. Upon arrival patient was de-sating to the 80's. I inflated cuff and placed her back on the ventilator
Cpap/psv mode. I administered a Duoneb and suctioned her, She started to have audible wheezes and became more lethargic with tachypneic and hypertension. Took patient off the vent and lavaged and bagged her at 100% O2 X3 and aggressively suctioned
her. O2 levels came up with bagging. Suspected mucous plugging. C X-ray done and an ABG. Placed patient back to A/C mode at 300-14-+5-70%. And will continue to monitor and wean Fio2 to 90% per Dr Treviño.
[2023-08-20] MEDS: CARDURA 1 MG PO (20:25)
[2023-08-20 20:26] LABS: Glucose - Point of Care 138 mg/dl (70-99)
[2023-08-20] MEDS: MUCINEX PO (20:26)
[2023-08-20] MEDS: LANTUS 0.100000000000000006 UNITS SC (20:27)
[2023-08-21] VITALS (10 sets, daily range): BP systolic 120–172; BP diastolic 51–107
[2023-08-21] MEDS: UNASYN IV ×2 (01:11→14:31)
--- NOTE | 2023-08-21 03:30 | PTCARENOTE ---
NO acute events overnight. Remained on the vent- see ventilator checks. Offered no complaints.
[2023-08-21 05:47] LABS: Blood Urea Nitrogen 31 mg/dl (7-17); Calcium 8.3 mg/dl (8.4-10.2); Carbon Dioxide 20 mmol/L (22-30); Chloride 119 mmol/L (98-107); Estimated Creatinine Clearance 20 ml/min; Glucose 44 mg/dl (70-99); Potassium 3.4 mmol/L (3.5-5.1); Sodium 147 mmol/L (135-145)
[2023-08-21] MEDS: DEXTROSE 50% SYRINGE 12.5 GRAMS IV (05:50)
[2023-08-21 06:10] LABS: Glucose - Point of Care 130 mg/dl (70-99)
[2023-08-21] MEDS: MUCOMYST 10% 2 ML INH ×2 (07:29→19:31)
[2023-08-21] MEDS: DUONEB 3 ML INH ×2 (07:29→19:31)
[2023-08-21 08:21] LABS: Glucose - Point of Care 77 mg/dl (70-99)
--- NOTE | 2023-08-21 10:12 | W.PN.PUL.V3 ---
Today's Communication / Plan
-
Monitor for mucous plugging
Add vest therapy
Mucolytic's
Deep suction and bronchoscopy as needed
Begin pressure support/CPAP and trach collar weans
Continue antibiotics
Assessment
-
Patient is a 62-year-old female status post Covid/ECMO/tracheostomy tube with recurrent hospitalizations for hypercapnic and hypoxemic respiratory failure presented with hypoxemia, hypercapnia, mental status changes, and left lung opacification with
suspected mucous plug and pulmonary was consulted for atelectasis/mucous plug/respiratory failure on 08/17/2023.
Hypoxemic and hypercapnic respiratory failure due to mucous plug/left lung atelectasis
ABG 08/17/2023--52/59/7 0.24
Mucous plug/left lung atelectasis
Status post emergent bronchoscopy at the bedside 08/18/2023-mucous plugs removed from the left
Pneumonia
Left pleural effusion
CHINTAN
Veisfe-jjojsagxnm-lftofgmqhb 7.0
Hypocalcemia
Hypernatremia
Metabolic and respiratory acidosis
Conditions present prior to admission:
Chronic hypercapnic/hypoxemic respiratory failure/chronic tracheostomy/nocturnal ventilation.
Severe Covid/ECMO 2019.
Diabetes.
Hypertension.
CAD/angioplasty 2020.
Recurrent UTI.
Ambulatory dysfunction/wheelchair-bound.
Chronic anemia.
Overweight.
Renal calculi.
Laparoscopic cholecystectomy 07/2020. Bilateral ureteroscopy with lithotripsy of the right renal stone and clearing of left renal pelvic fungal ball. Laminectomy. .
Plan
Respiratory decompensation due to mucous plug and complete left lung atelectasis-note moderate pleural effusion on the left as well.
Emergent bronchoscopy performed 08/18/2023 with some mucous plugs removed
Continue nocturnal mechanical ventilation.
Chest x-ray 08/19/2023: improved aeration of the left lung. Findings compatible with improved mucous plugging/atelectasis. No significant pleural effusion noted.
Chest x-ray 08/20/2023-complete left lower lobe atelectasis, moderate right lower lobe airspace disease
Mucomyst
Nebulizers
Mucolytic's
Mucus clearing devices-add vest therapy
Rest on ventilator overnight
CPAP/pressure support and trach collar weans during the daytime
Aspiration precautions
Routine tracheostomy tube care
Cultures reviewed
Bronchoscopy cultures Proteus-pansensitive
Continue Unasyn
Infectious disease following-correspondence reviewed
Monitor renal function
Nephrology following
Monitor for fluid overload as proBNP was elevated at 14,500
Monitor hemoglobin-status post 1 unit packed red blood cells during this admission.
Last hemoglobin 9.7 on 08/20/2023.
DVT prophylaxis-on heparin
Early mobilization/bedside range of motion-baseline wheelchair-bound and ambulatory dysfunction
The patient was last seen in the pulmonary office by Kalpana Mobley NP 06/01/2023 and has an appointment 09/07/2023 at 10:30 AM

Diagnostic data:
CXR 04-27, reviewed, L basilar atelectasis
CXR 04-19, resolved total L atelectasis, currently back to chronic L basilar atelectasis. New tracheostomy
CXR 04-16, portable, L basilar atelectasis
CXR 04/11/22- 1. Complete opacification of the left hemithorax, likely on the basis of a large pleural effusion and compressive atelectasis upon the left lung. Mild right basilar pneumonia suspected
Chest x-ray 08/17/2023-near complete opacification throughout the left Jovanni thorax
Echocardiogram 01/10/22-EF 60-65%, no significant valvular disease, small pericardial effusion
Echocardiogram 03/22/22: Normal left ventricular chamber size. Normal left ventricular systolic�function. Normal regional wall motion. Normal left ventricular wall thickness.�Left ventricular ejection fraction is 60-65%. Mild tricuspid
regurgitation.�Small to moderate pericardial effusion without evidence of hemodynamic�compromise.�Compared to the previous echo Dec 2021, there is no significant change.
CT CHEST 04/11/22- �A moderate to large left pleural effusion and complete collapse/atelectasis of the left lung account for the left hemithorax opacification on the prior chest radiograph. Findings are in part likely secondary to mucous plugging
given the presence of opacification of the left mainstem bronchus and left upper and lower lobe bronchi, patchy opacifications right middle and lower lobe suspicious for pneumonia, moderate right pleural effusion and ill-defined sclerotic lesion
T12, osseous metastasis not completely excluded
CT CHEST 03/22/22 - There is no CT evidence for pulmonary embolism. No aortic dissection.There are extremely large bilateral pleural effusions right greater than left and associated bilateral consolidation most prominent in the left lower
lobe.Cardiomegaly. Increased pericardial effusion.
CT chest 08/17/2023-occluded left mainstem bronchus presumably mucous plugs with complete atelectasis left lung moderate size left pleural effusion, small to moderate right pleural effusion
VSE 04/28/22: No aspiration. Laryngeal penetration with cough with thin liquids by cup.
Spirometry 09/09/21-FEV1 790 mL-36%, FVC 790 mL 27%. Some difficulties with maneuver and thus may offer unreliability. Severe restriction.�������
PFT 02/08/22-FVC 1.01/30%, FEV1 0.70/35%, ratio 69%, unable to perform lung volumes and diffusing capacity.
Subjective Data
-
Date of Service:
Date of Service: August 21, 2023
Chief Complaint: Pulmonary Follow Up (Pneumonia/mucous plug) and Dyspnea Follow Up
Subjective:
Patient was rested on ventilator overnight, had mucous plug yesterday, now with moderate amount secretions, good aeration, oxygenation improved, no chest pain, abdominal pain
Review of Systems
General: Other ( per HPI)
Objective Data
Data Reviewed
Vital Signs / I&O:
Vital Signs
Temp Pulse Resp BP Pulse Ox
97.6 F 78 16 120/51 95
08/21/23 08:20 08/21/23 06:00 08/21/23 06:00 08/21/23 06:00 08/21/23 08:00
Intake and Output
08/20/23 08/21/23 08/22/23
06:59 06:59 06:59
Intake Total 1140 / 1140 120 / 120
Output Total 500 / 500
Balance 640 / 640 120 / 120
SaO2: 95
Nasal Cannula flow liters per minute: 4
Physical Exam
General: Respiratory Distress (n) and Comfortable
HEENT: Normocephalic and Other (Tracheotomy tube in place. No significant secretion. No air leak. Well-healed)
Cardiovascular: Regular Rhythm
Respiratory: Clear (Improved aeration on the left), Wheeze (n), Rhonchi (Few expiratory), Non-Labored Respirations, Accessory Resp Muscle Use (n) and Stridor (n)
GI: Soft and Non Distended
Neurology: Awake, Alert and Other (Generalized weakness)
Skin: Warm, Good Color, Cyanosis (n), Jaundice (n) and Rash (n)
Labs/Micro/Reports
Lab Data
08/21/23 04:47
Laboratory Results
08/20/23
14:34
pH 7.13 L*
pCO2 68 H
pO2 89
HCO3 22.6
O2 Delivery Level Not Reportable
Microbiology
08/17/23 21:23 Blood/Venous Blood Culture - Preliminary
No Growth in 72 hours- Final report to follow
08/18/23 11:25 Urine Urine Culture - Final
Escherichia coli
08/18/23 11:25 Bronch Left Lower Lobe Respiratory Culture - Final
Proteus mirabilis
08/18/23 11:25 Bronch Left Lower Lobe Gram Stain - Final
08/17/23 22:00 Blood/Venous Blood Culture - Preliminary
Coagulase neg. staphylococcus
Additional testing on request
08/17/23 22:00 Blood/Venous Gram Stain - Preliminary
08/18/23 06:21 Nose MRSA Screen - Final
No Methicillin Resistant Staphylococcus aureus isolated.
[2023-08-21 10:28] LABS: B.E. -6.7 mmol/L; HCO3 21.5 mmol/L (21-28); O2 Saturation % 99.8 % (94-98); PCO2 55 mmHg (32-35); PO2 128 mmHg (83-108)
[2023-08-21 10:35] LABS: Hematocrit 33.8 % (37.0-47.0); Hemoglobin 10.7 g/dL (12.0-16.0); Mean Corp Hgb Conc. 31.7 g/dL (33.0-37.0); Mean Corpuscular Hgb 29.1 pg (27.0-31.0); Mean Corpuscular Volume 91.8 fL (81.0-99.0); Mean Platelet Volume 10.8 fL (7.4-10.4); Platelet Count 186 10^3/uL (130-400); Red Blood Cell Count 3.68 10^6/uL (4.20-5.40); Red Cell Dist. Width 14.9 % (11.5-14.5); White Blood Cell Count 6.3 10^3/uL (4.8-10.8)
[2023-08-21] MEDS: VITAMIN B-12 1000 MCG PO (10:35)
[2023-08-21] MEDS: HEPARIN 5000 UNITS SC ×2 (10:35→20:12)
[2023-08-21] MEDS: ASPIR LOW (ENTERIC COATED) 81 MG PO (10:35)
[2023-08-21] MEDS: MUCINEX 600 MG PO ×2 (10:35→20:12)
[2023-08-21] MEDS: LOPRESSOR 50 MG PO ×2 (10:35→20:12)
[2023-08-21] MEDS: VITAMIN D3 (cholecalciferol) 25 MCG PO (10:35)
[2023-08-21] MEDS: NORVASC 5 MG PO (10:35)
[2023-08-21] MEDS: FEOSOL 325 MG PO ×2 (10:36→20:12)
[2023-08-21 10:48] LABS: Glucose - Point of Care 84 mg/dl (70-99)
--- NOTE | 2023-08-21 11:02 | W.PN.ID1 ---
Date of Service
Date of Service: August 21, 2023
Today's Communication
Continue Unasyn (d#5 abx)
Assessment / Plan
Left lung white out presumably secondary to mucous plugging
- s/p bronchoscopy
Bronchitis +/- PNA 2* Proteus mirabilis
Chronic respiratory failure
Hypernatremia
CKD
Bacteriuria with E. coli
CAD
HTN
DM
Anemia
Dyslipidemia
Recommendations:
Sensitivity patterns of recovered isolate is reviewed.
Continue Unasyn (d#5 abx)
Monitor white count and temperature curve.
Chief Complaint
-: Pneumonia
Subjective / Review of Systems
Review of Systems: No Fever and No Chills
Vital Signs / Physical Exam
Vital Signs
Vital Signs
Temp Pulse Resp BP Pulse Ox
97.6 F 89 16 153/69 95
08/21/23 08:20 08/21/23 10:35 08/21/23 06:00 08/21/23 10:35 08/21/23 10:12
Physical Exam
Constitutional: No Acute Distress, Comfortable, Chronically Ill and Non-toxic
Oropharyngeal: Other (Tracheostomy in place with Pass[place] valve)
Cardiovascular: S1/S2; Negative S3/S4
Pulmonary: Coarse and Non Labored
Gastrointestinal: Soft, Non Tender and Non Distended
Neurological: Awake and Alert
Objective Data
Lab Data
Lab Results
08/21/23 10:25
08/21/23 04:47
Estimated Creat Clear 20 ml/min 08/21/23 04:47
Lactic Acid Cancelled 08/18/23 01:30
Total Bilirubin 0.2 mg/dl (0.2-1.3) 08/18/23 05:25
AST 12 U/L (14-36) L 08/18/23 05:25
ALT < 10 U/L (0-35) 08/18/23 05:25
Alkaline Phosphatase 50 U/L (38-126) 08/18/23 05:25
Most recent labs reviewed.
Micro Results:
08/17/23 21:23 Blood Culture - Preliminary
Blood/Venous No Growth in 72 hours- Final report to follow
08/18/23 11:25 Urine Culture - Final
Urine Escherichia coli
08/18/23 11:25 Respiratory Culture - Final
Bronch Left Lower Lobe Proteus mirabilis
Gram Stain - Final
08/17/23 22:00 Blood Culture - Preliminary
Blood/Venous Coagulase neg. staphylococcus
Additional testing on request
Gram Stain - Preliminary
08/18/23 06:21 MRSA Screen - Final
Nose No Methicillin Resistant Staphylococcus aureus isolated.
Imaging:
08/19/2023 Renal ultrasound: Severe bilateral renal disease (left > right), increased since 2021. 4.8 mm nonobstructing left intrarenal calculus noted. No evidence for hydronephrosis.
08/19/2023 CXR (portable): Improved inflation of the left lung, with findings compatible with improvement in mucous plugging and atelectasis.
08/17/2023 CT chest without contrast: Occluded left mainstem bronchus presumably secondary to mucous plugging with complete atelectasis of the left lung and left-sided volume loss. Small to moderate right pleural effusion is noted. Please see full
dictation for additional detail.
--- NOTE | 2023-08-21 11:35 | W.PN.NEPH.PH ---
Today's Communication / Plan
-
see plan
Assessment/Plan
-
IMP:
Acute on chronic hypercapnic/hypoxemic respiratory failure
-h/o chronic hypercapnic/hypoxemic respiratory failure secondary to COVID in 2019 on baseline 0.5 L trach collar during the day, ventilator at nighttime
CHINTAN
Anemia of chronic disease
mild hypernatremia
bilat pleural effusion
IDDM2
Hx of small to moderate pericardial effusion
Essential hypertension
Hyperlipidemia
Coronary artery disease status post angioplasty
h/o C. diff
Ambulatory dysfunction wheelchair-bound since June 2019
Spinal stenosis
h/o K stone
Hypoalbuminemia
Plan:
A/w hypoxia and confusion with acute resp failure
CHINTAN-cr at 1 in 2022, fall 2022 was at 1.22 Mar 2023 was at 1.5 and since admit stable at low 2 range and up at 2.4 today
UA with UTI, urine with e.coli.
KUS no hydro non obst renal caliculi,but with severe cortical thinning, mild nephromegaly too - which might indicate that this could be new baseline cr
she seem to have albuminuria suspect underlying ?diabetic nephropathy. UPCR at 8.7
paraproteinemia workup pending, check serologies
note that she was started on Mounjaro in last 6months not sure there could be some improvement of renal function with holding med
avoid nephrotoxins and adjust meds renally
Bp stable on Amlodipine and Doxazosin, holding ACEI
anemia-Fe sat 21%, normal b12 and folate levels, pending paraprotein w/u
hb stable post pRBC, may benefit from BARB
corrected jannie is normal, normal vit d
evolving hypernatremia-encourage po water intake
due to high BNP and CXR ?pulm edema avoiding IVF
monitor mild met acidosis, repalce k
d/w daughter at bedside in detail today that if cr remains same she likely has CKD 4, presuming diabetic nephropathy however her A1c 4.9 have been well controlled
she may need to resume ACEI in future for proteinuria, she is inquiring about Kerendia which needs to be addressed as out pt by nephro
Biopsy could be considered based on serologies and repeat UA
daughter interested in getting Nephro at [facility]
d/w nursing
-
-
Date of Service: August 21, 2023
CC / HPI / ROS
-
Chief Complaint:
CHINTAN
History of Present Illness:
Cr slightly up at 2.4
urine output not measured
s/p emergency bronchoscopy 08/18
hypernatremia with Na of 147
k low at 3.4, per daughter cr was at 1.5 in Mar 2023
hb better at 10.7
Review of Systems:
better today
more awake and conversing
no fever, on 3lit of O2
Labs
-
Labs:
WBC 6.3 10^3/uL (4.8-10.8) 08/21/23 10:25
RBC 3.68 10^6/uL (4.20-5.40) L 08/21/23 10:25
Hgb 10.7 g/dL (12.0-16.0) L 08/21/23 10:25
Hct 33.8 % (37.0-47.0) L 08/21/23 10:25
Plt Count 186 10^3/uL (130-400) 08/21/23 10:25
Sodium 147 mmol/L (135-145) H 08/21/23 04:47
Potassium 3.4 mmol/L (3.5-5.1) L 08/21/23 04:47
Chloride 119 mmol/L (98-107) H 08/21/23 04:47
Carbon Dioxide 20 mmol/L (22-30) L 08/21/23 04:47
BUN 31 mg/dl (7-17) H 08/21/23 04:47
Creatinine 2.4 mg/dL (0.6-1.0) H 08/21/23 04:47
eGFR 22.00 08/21/23 04:47
Glucose 44 mg/dl (70-99) L* 08/21/23 04:47
Calcium 8.3 mg/dl (8.4-10.2) L 08/21/23 04:47
Mcx-F-Xiemcfuviah Pept 38276 pg/ml 08/18/23 05:25
Albumin 2.6 g/dl (3.5-5.0) L 08/18/23 05:25
Physical Exam
-
Vital Signs:
Vital Signs
Temp Pulse Resp BP Pulse Ox
97.6 F 89 25 153/69 95
08/21/23 08:20 08/21/23 10:35 08/21/23 10:00 08/21/23 10:35 08/21/23 10:12
Cardiovascular:: Regular rate and rhythm
Respiratory:: Bilateral: Rhonchi
Lung Excursion:: Abnormal
Abdomen:: Nontender and Soft
Extremity Edema:: +1: Bilateral:
Bond Catheter: No
[2023-08-21 12:10] LABS: Glucose - Point of Care 84 mg/dl (70-99)
[2023-08-21 13:11] LABS: 24 Hour Urine Total Volume Not Provided mL; Urine Collection Length Not Provided hr; Urine Free Kappa Light Chains 452.58 mg/L (0.00-32.90); Urine Free Lambda Light Chains 91.38 mg/L (0.00-3.79)
[2023-08-21 17:37] LABS: Glucose - Point of Care 149 mg/dl (70-99)
--- NOTE | 2023-08-21 17:37 | W.PN.HOSP.TC ---
Today's Communication/Plan
-
continue to monitor labs
continue Abx
continue trach collar
Assessment / Plan
Assessment / Plan
08/18/23 11:25 Bronch Left Lower Lobe Respiratory Culture - Final
Proteus mirabilis
08/18/23 11:25 Bronch Left Lower Lobe Gram Stain - Final
08/18/23 11:25 Urine Urine Culture - Preliminary
Escherichia coli
08/17/23 21:23 Blood/Venous Blood Culture - Preliminary
No Growth in 48 hours- Final report to follow
08/17/23 22:00 Blood/Venous Blood Culture - Preliminary
Coagulase neg. staphylococcus
Additional testing on request
08/17/23 22:00 Blood/Venous Gram Stain - Preliminary
08/18/23 06:21 Nose MRSA Screen - Final
No Methicillin Resistant Staphylococcus aureus isolated.
CT chest:
1. Occluded left main stem bronchus, presumably secondary to mucous plugging, with complete atelectasis of the left lung and left-sided volume loss. Small to moderate-sized left-sided pleural effusion.
2. Small to moderate right pleural effusion with adjacent compressive atelectasis. Nonspecific scattered interstitial opacities within the aerated portions of the right lung.
3. Moderate cardiomegaly with pericardial effusion.
Echo: EF 60-65%. No RWMA. Mild concentric left ventricular hypertrophy. Normal diastolic function. Normal right ventricular size and function. Normal atria. Mild tricuspid regurgitation. Estimated pulmonary artery pressure of 37 mmHg assuming a
right atrial pressure of 3 mmHg. Small pericardial effusion without evidence of hemodynamic compromise. When compared to prior study on 03/22/2022, there is no significant change.
Renal U/S:
1. SEVERE BILATERAL RENAL DISEASE (left greater than right) which appears to have increased since 11/11/2021.
2. 4.8 mm nonobstructing left intrarenal calculus.
3. No sonographic evidence for hydronephrosis.
Assessment:
Acute on chronic hypercapnic/hypoxemic respiratory failure:
-due to near opacification of the left hemithorax likely secondary to mucous plugging/atelectasis versus large left pleural effusion/pneumonia
-h/o chronic hypercapnic/hypoxemic respiratory failure secondary to COVID in 2019 on baseline 0.5 L trach collar during the day, ventilator at nighttime
-Chest x-ray shows progressive near complete opacification throughout the left hemithorax.
-ABG on admission showed hypercarbia/hypoxemic respiratory failure pCO2 52, pH 7.24, pO2 59
-BiPAP/PSV, currently on 3L TC
-CT chest above
-s/p emergency bronchoscopy 08/18/23. No large mucous plug bilaterally. Lingula had significant secretions and BAL was performed.
-cont Mucomyst/duonebs
-pulm following
-BAL Cx with proteus, UCx with E coli (question if actually UTI)
-currently on Unasyn, day 5 of Abx; ID following
CHINTAN:
-was on IVFs; on hold due to concern to develop volume overload
-renal following
-holding ACEi
-renal U/S above
-Cr has not improved; this may represent CKD4
-SPEP/UPEP pending
-renal following
Anemia of chronic disease and Fe deficiency:
-s/p 2U pRBCs and hb 10.7
-Continue iron supplement
Other problems:
Hypernatremia: free water intake encouraged
DM2: cont Lantus/SSI/accuchecks
Hx of small to moderate pericardial effusion
Essential hypertension: cont Norvasc/doxazosin. Holding lisinopril.
Hyperlipidemia: Continue statin
Coronary artery disease status post angioplasty: cont ASA/BB
h/o C. diff
Ambulatory dysfunction wheelchair-bound since June 2019
Spinal stenosis
and daughter updated at bedside.
FULL/heparin
Anticipated Discharge: > 48 hours
Subjective/Interval History
-
Date of Service: August 21, 2023
stable breathing this morning on trach collar
no new complaints
Objective Data
-
Labs:
Laboratory Results
08/21/23 08/21/23 08/21/23
04:47 10:18 10:25
WBC 6.3
Hgb 10.7 L
Hct 33.8 L
Plt Count 186
HCO3 21.5
Sodium 147 H
Potassium 3.4 L
Chloride 119 H
Carbon Dioxide 20 L
BUN 31 H
Creatinine 2.4 H
Glucose 44 L*
Calcium 8.3 L
Vital Signs:
Vital Signs
Temp Pulse Resp BP Pulse Ox
98.7 F 93 32 172/79 98
08/21/23 15:22 08/21/23 16:10 08/21/23 16:10 08/21/23 16:08 08/21/23 16:37
I&O
08/20/23 08/21/23 08/22/23
06:59 06:59 06:59
Intake Total 1140 / 1140 120 / 120
Output Total 500 / 500
Balance 640 / 640 120 / 120
Physical Exam
-
General: No Apparent Distress
HEENT: Normocephalic, Atraumatic and Tracheostomy Collar
Respiratory: Clear to Auscultation
GI: Soft
Genito-urinary: No Costovertebral Tender
Musculoskeletal: No Edema
Neuro: AO x 3
Psych: Calm
Data Reviewed
-
Total Time Spent with Patient (in minutes): 41
Labs: Labs Reviewed by me
[2023-08-21] MEDS: KCL 20 MEQ PO (18:28)
[2023-08-21] MEDS: LIPITOR 20 MG PO (18:28)
[2023-08-21] MEDS: CARDURA 1 MG PO (20:15)
[2023-08-21 21:40] LABS: Glucose - Point of Care 141 mg/dl (70-99)
[2023-08-21] MEDS: LANTUS 0.0800000000000000017 UNITS SC (21:45)
[2023-08-22] VITALS (13 sets, daily range): BP systolic 139–160; BP diastolic 66–77
[2023-08-22] MEDS: UNASYN IV ×2 (01:19→13:01)
[2023-08-22 05:32] LABS: Hematocrit 32.8 % (37.0-47.0); Hemoglobin 10.3 g/dL (12.0-16.0); Mean Corp Hgb Conc. 31.4 g/dL (33.0-37.0); Mean Corpuscular Hgb 28.5 pg (27.0-31.0); Mean Corpuscular Volume 90.9 fL (81.0-99.0); Platelet Count 222 10^3/uL (130-400); Red Blood Cell Count 3.61 10^6/uL (4.20-5.40); Red Cell Dist. Width 14.6 % (11.5-14.5); White Blood Cell Count 6.8 10^3/uL (4.8-10.8)
[2023-08-22 05:55] LABS: Blood Urea Nitrogen 30 mg/dl (7-17); Calcium 8.3 mg/dl (8.4-10.2); Carbon Dioxide 22 mmol/L (22-30); Chloride 119 mmol/L (98-107); Estimated Creatinine Clearance 19 ml/min; Glucose 58 mg/dl (70-99); Potassium 3.7 mmol/L (3.5-5.1); Sodium 149 mmol/L (135-145); eGFR 20.95
--- NOTE | 2023-08-22 06:08 | PTCARENOTE ---
no acute events overnight- pt on CPAP vent overnight without issues. suctioned x3 for thin clear sputum. pt with some episodes of coughing.
[2023-08-22] MEDS: DEXTROSE 50% SYRINGE 12.5 GRAMS IV (07:28)
[2023-08-22 07:31] LABS: Glucose - Point of Care 55 mg/dl (70-99)
[2023-08-22] MEDS: DUONEB 3 ML INH ×2 (07:35→20:01)
[2023-08-22] MEDS: MUCOMYST 10% 2 ML INH ×2 (07:35→20:02)
[2023-08-22 08:03] LABS: Glucose - Point of Care 102 mg/dl (70-99)
--- NOTE | 2023-08-22 08:07 | RESPNOTE ---
Respiratory: patient tolerated CPT done via vest, per Pulmonary. Focused on left lobe.
[2023-08-22] MEDS: VITAMIN B-12 1000 MCG PO (08:59)
[2023-08-22] MEDS: FEOSOL 325 MG PO ×2 (09:00→19:55)
[2023-08-22] MEDS: ASPIR LOW (ENTERIC COATED) 81 MG PO (09:00)
[2023-08-22] MEDS: VITAMIN D3 (cholecalciferol) 25 MCG PO (09:00)
[2023-08-22] MEDS: LOPRESSOR 50 MG PO ×2 (09:00→19:55)
[2023-08-22] MEDS: HEPARIN 5000 UNITS SC ×2 (09:00→19:55)
[2023-08-22] MEDS: NORVASC 5 MG PO (09:00)
[2023-08-22] MEDS: MUCINEX 600 MG PO ×2 (09:00→19:55)
--- NOTE | 2023-08-22 09:42 | W.PN.PUL.V3 ---
Today's Communication / Plan
-
Mucus clearing devices
Advanced trach collar weans
May try Passy-[place] valve/speaking valve with supervision
Deep suction and vest therapy
At significant risk for recurrent left-sided mucous plugging/atelectasis
Assessment
-
Patient is a 62-year-old female status post Covid/ECMO/tracheostomy tube with recurrent hospitalizations for hypercapnic and hypoxemic respiratory failure presented with hypoxemia, hypercapnia, mental status changes, and left lung opacification with
suspected mucous plug and pulmonary was consulted for atelectasis/mucous plug/respiratory failure on 08/17/2023.
Hypoxemic and hypercapnic respiratory failure due to mucous plug/left lung atelectasis
ABG 08/17/2023--52/59/7 0.24
Mucous plug/left lung atelectasis
Status post emergent bronchoscopy at the bedside 08/18/2023-mucous plugs removed from the left
Pneumonia
Left pleural effusion
CHINTAN
Ylmtzg-vujlxiakge-jtcxrdqezc 7.0
Hypocalcemia
Hypernatremia
Metabolic and respiratory acidosis
Conditions present prior to admission:
Chronic hypercapnic/hypoxemic respiratory failure/chronic tracheostomy/nocturnal ventilation.
Severe Covid/ECMO 2019.
Diabetes.
Hypertension.
CAD/angioplasty 2020.
Recurrent UTI.
Ambulatory dysfunction/wheelchair-bound.
Chronic anemia.
Overweight.
Renal calculi.
Laparoscopic cholecystectomy 07/2020. Bilateral ureteroscopy with lithotripsy of the right renal stone and clearing of left renal pelvic fungal ball. Laminectomy. .
Plan
Respiratory decompensation due to mucous plug and complete left lung atelectasis-note moderate pleural effusion on the left as well.
Emergent bronchoscopy performed 08/18/2023 with some mucous plugs removed
Continue nocturnal mechanical ventilation.
Chest x-ray 08/19/2023: improved aeration of the left lung. Findings compatible with improved mucous plugging/atelectasis. No significant pleural effusion noted.
Chest x-ray 08/20/2023-complete left lower lobe atelectasis, moderate right lower lobe airspace disease
Mucomyst continue
Nebulizers continues
Mucolytic's
Vest therapy twice daily
Rest on ventilator overnight
CPAP/pressure support and trach collar weans during the daytime-May use Passy-[place] valve with supervision
Aspiration precautions
Routine tracheostomy tube care continues
Cultures reviewed
Bronchoscopy cultures Proteus-pansensitive
Continue Unasyn
Infectious disease following-correspondence reviewed
Follow renal function
Nephrology following
Monitor for fluid overload as proBNP was elevated at 14,500
Monitor hemoglobin-status post 1 unit packed red blood cells during this admission.
Last hemoglobin 10.3 on 08/22/2023
DVT prophylaxis-on heparin
Early mobilization/bedside range of motion-baseline wheelchair-bound and ambulatory dysfunction
The patient was last seen in the pulmonary office by Kalpana Mobley NP 06/01/2023 and has an appointment 09/07/2023 at 10:30 AM

Diagnostic data:
CXR 04-27, reviewed, L basilar atelectasis
CXR 04-19, resolved total L atelectasis, currently back to chronic L basilar atelectasis. New tracheostomy
CXR 04-16, portable, L basilar atelectasis
CXR 04/11/22- 1. Complete opacification of the left hemithorax, likely on the basis of a large pleural effusion and compressive atelectasis upon the left lung. Mild right basilar pneumonia suspected
Chest x-ray 08/17/2023-near complete opacification throughout the left Jovanni thorax
Echocardiogram 01/10/22-EF 60-65%, no significant valvular disease, small pericardial effusion
Echocardiogram 03/22/22: Normal left ventricular chamber size. Normal left ventricular systolic�function. Normal regional wall motion. Normal left ventricular wall thickness.�Left ventricular ejection fraction is 60-65%. Mild tricuspid
regurgitation.�Small to moderate pericardial effusion without evidence of hemodynamic�compromise.�Compared to the previous echo Dec 2021, there is no significant change.
CT CHEST 04/11/22- �A moderate to large left pleural effusion and complete collapse/atelectasis of the left lung account for the left hemithorax opacification on the prior chest radiograph. Findings are in part likely secondary to mucous plugging
given the presence of opacification of the left mainstem bronchus and left upper and lower lobe bronchi, patchy opacifications right middle and lower lobe suspicious for pneumonia, moderate right pleural effusion and ill-defined sclerotic lesion
T12, osseous metastasis not completely excluded
CT CHEST 03/22/22 - There is no CT evidence for pulmonary embolism. No aortic dissection.There are extremely large bilateral pleural effusions right greater than left and associated bilateral consolidation most prominent in the left lower
lobe.Cardiomegaly. Increased pericardial effusion.
CT chest 08/17/2023-occluded left mainstem bronchus presumably mucous plugs with complete atelectasis left lung moderate size left pleural effusion, small to moderate right pleural effusion
VSE 04/28/22: No aspiration. Laryngeal penetration with cough with thin liquids by cup.
Spirometry 09/09/21-FEV1 790 mL-36%, FVC 790 mL 27%. Some difficulties with maneuver and thus may offer unreliability. Severe restriction.�������
PFT 02/08/22-FVC 1.01/30%, FEV1 0.70/35%, ratio 69%, unable to perform lung volumes and diffusing capacity.
Subjective Data
-
Date of Service:
Date of Service: August 22, 2023
Chief Complaint: Pulmonary Follow Up (Pneumonia/mucous plug) and Dyspnea Follow Up
Subjective:
Overall improved, still with some moderate amounts of secretions, started on vest therapy, tolerating trach collar, no complaints of shortness of breath at rest, chest pain or abdominal pain
Review of Systems
General: Other (Per HPI)
Objective Data
Data Reviewed
Vital Signs / I&O:
Vital Signs
Temp Pulse Resp BP Pulse Ox
98.4 F 90 23 149/72 95
08/22/23 07:19 08/22/23 09:00 08/22/23 08:00 08/22/23 09:00 08/22/23 07:35
Intake and Output
08/21/23 08/22/23 08/23/23
06:59 06:59 06:59
Intake Total 120 / 120 1080 / 1080
Balance 120 / 120 1080 / 1080
SaO2: 95
Nasal Cannula flow liters per minute: 1
Physical Exam
General: Respiratory Distress (n) and Comfortable
HEENT: Normocephalic, Anicteric, Moist Mucous Membranes, Tracheotomy and Other (Tracheotomy tube in place. No significant secretion. No air leak. Well-healed)
Cardiovascular: Regular Rhythm
Respiratory: Clear (Improved aeration on the left), Wheeze (n), Rhonchi (Few expiratory), Non-Labored Respirations, Accessory Resp Muscle Use (n) and Stridor (n)
GI: Soft and Non Distended
Neurology: Awake, Alert and Other (Generalized weakness)
Skin: Warm, Good Color, Cyanosis (n), Jaundice (n) and Rash (n)
Labs/Micro/Reports
Lab Data
08/22/23 05:17
08/22/23 05:17
Laboratory Results
08/21/23
10:18
pH 7.20 L
pCO2 55 H
pO2 128 H
HCO3 21.5
O2 Delivery Level
Microbiology
08/17/23 21:23 Blood/Venous Blood Culture - Preliminary
No Growth in 4 days- Final report to follow
08/18/23 11:25 Urine Urine Culture - Final
Escherichia coli
08/18/23 11:25 Bronch Left Lower Lobe Respiratory Culture - Final
Proteus mirabilis
08/18/23 11:25 Bronch Left Lower Lobe Gram Stain - Final
08/17/23 22:00 Blood/Venous Blood Culture - Preliminary
Coagulase neg. staphylococcus
Additional testing on request
08/17/23 22:00 Blood/Venous Gram Stain - Preliminary
08/18/23 06:21 Nose MRSA Screen - Final
No Methicillin Resistant Staphylococcus aureus isolated.
[2023-08-22 10:17] LABS: Glucose - Point of Care 95 mg/dl (70-99)
[2023-08-22 12:15] LABS: Glucose - Point of Care 98 mg/dl (70-99)
--- NOTE | 2023-08-22 12:25 | W.PN.NEPH.PH ---
Today's Communication / Plan
-
gentle hypotonic fluids
Assessment/Plan
-
IMP:
Acute on chronic hypercapnic/hypoxemic respiratory failure
-h/o chronic hypercapnic/hypoxemic respiratory failure secondary to COVID in 2019 on baseline 0.5 L trach collar during the day, ventilator at nighttime
CHINTAN
Anemia of chronic disease
mild hypernatremia
bilat pleural effusion
IDDM2
Hx of small to moderate pericardial effusion
Essential hypertension
Hyperlipidemia
Coronary artery disease status post angioplasty
h/o C. diff
Ambulatory dysfunction wheelchair-bound since June 2019
Spinal stenosis
h/o K stone
Hypoalbuminemia
Plan:
A/w hypoxia and confusion with acute resp failure
CHINTAN-cr at 1 in 2022, fall 2022 was at 1.22 Mar 2023 was at 1.5 and admit low 2 range and now up at 2.5 today
UA with UTI, urine with e.coli.
KUS no hydro non obst renal caliculi,but with severe cortical thinning, mild nephromegaly too - which might indicate D nephropathy and wonder cr new baseline in 2 range
Nephrotic range proteinuria UPCR at 8.7
paraproteinemia and serologies workup pending
note that she was started on Mounjaro in last 6months not sure if this caused any CHINTAN too
avoid nephrotoxins and adjust meds renally
Bp stable on Amlodipine and Doxazosin, holding ACEI
anemia-Fe sat 21%, normal b12 and folate levels, pending paraprotein w/u
hb stable post pRBC, may benefit from BARB
corrected jannie is normal, normal vit d
worsening hypernatremia-will start gentle hypotonic fluids
but caution due to high BNP
monitor mild met acidosis
d/w daughter at bedside in detail 08/20 that if cr remains same she likely has CKD 4, presuming diabetic nephropathy however her A1c 4.9 have been well controlled
Not clear if any other process could be going on-pending serologies and paraprotein w/u
she may need to resume ACEI in future for proteinuria, she is inquiring about Kerendia which needs to be addressed as out pt by nephro
Biopsy could be considered based on serologies
daughter interested in getting Nephro at [facility]
d/w family and nursing
-
-
Date of Service: August 22, 2023
CC / HPI / ROS
-
Chief Complaint:
CHINTAN
History of Present Illness:
Cr slightly up at 2.5
urine output not measured
s/p emergency bronchoscopy on admit
hypernatremia with Na of 149
k better at 3.7, per daughter cr was at 1.5 in Mar 2023
hb stable at 10.3
Review of Systems:
per family mildly lethargic
minimal secretion per staff
offers no sob
no fever
Labs
-
Labs:
WBC 6.8 10^3/uL (4.8-10.8) 08/22/23 05:17
RBC 3.61 10^6/uL (4.20-5.40) L 08/22/23 05:17
Hgb 10.3 g/dL (12.0-16.0) L 08/22/23 05:17
Hct 32.8 % (37.0-47.0) L 08/22/23 05:17
Plt Count 222 10^3/uL (130-400) 08/22/23 05:17
Sodium 149 mmol/L (135-145) H 08/22/23 05:17
Potassium 3.7 mmol/L (3.5-5.1) 08/22/23 05:17
Chloride 119 mmol/L (98-107) H 08/22/23 05:17
Carbon Dioxide 22 mmol/L (22-30) 08/22/23 05:17
BUN 30 mg/dl (7-17) H 08/22/23 05:17
Creatinine 2.5 mg/dL (0.6-1.0) H 08/22/23 05:17
eGFR 20.95 08/22/23 05:17
Glucose 58 mg/dl (70-99) L 08/22/23 05:17
Calcium 8.3 mg/dl (8.4-10.2) L 08/22/23 05:17
Ekw-P-Dbhqtucpfks Pept 96941 pg/ml 08/18/23 05:25
Albumin 2.6 g/dl (3.5-5.0) L 08/18/23 05:25
Physical Exam
-
Vital Signs:
Vital Signs
Temp Pulse Resp BP Pulse Ox
98.4 F 84 22 158/74 99
08/22/23 07:19 08/22/23 10:00 08/22/23 10:00 08/22/23 10:00 08/22/23 11:07
Cardiovascular:: Regular rate and rhythm
Respiratory:: Bilateral: Coarse
Lung Excursion:: Abnormal
Abdomen:: Nontender and Soft
Extremity Edema:: None: Bilateral:
Bond Catheter: No
[2023-08-22] MEDS: D5W 1000 IV (13:01)
--- NOTE | 2023-08-22 13:59 | W.PN.ID1 ---
Date of Service
Date of Service: August 22, 2023
Today's Communication
Continue Unasyn (d#6 abx) another 24 hours then D/C further abx.
Assessment / Plan
Left lung white out presumably secondary to mucous plugging
- s/p bronchoscopy
Bronchitis +/- PNA 2* Proteus mirabilis
Chronic respiratory failure
Hypernatremia
CKD
Bacteriuria with E. coli
CAD
HTN
DM
Anemia
Dyslipidemia
Recommendations:
Sensitivity patterns of recovered isolate is reviewed.
Continue Unasyn (d#6 abx) another 24 hours then D/C further abx.
Monitor white count and temperature curve.
Chief Complaint
-: Pneumonia
Subjective / Review of Systems
Review of Systems: No Fever and No Chills
Vital Signs / Physical Exam
Vital Signs
Vital Signs
Temp Pulse Resp BP Pulse Ox
98.4 F 82 26 153/70 96
08/22/23 07:19 08/22/23 12:00 08/22/23 12:00 08/22/23 12:00 08/22/23 12:00
Physical Exam
Constitutional: No Acute Distress, Comfortable, Chronically Ill and Non-toxic
Oropharyngeal: Other (Tracheostomy in place with Passy-[place] valve. Trach collar in place.)
Cardiovascular: S1/S2; Negative S3/S4
Pulmonary: Coarse and Non Labored
Gastrointestinal: Soft, Non Tender and Non Distended
Neurological: Awake and Alert
Objective Data
Lab Data
Lab Results
08/22/23 05:17
Estimated Creat Clear 19 ml/min 08/22/23 05:17
Lactic Acid Cancelled 08/18/23 01:30
Total Bilirubin 0.2 mg/dl (0.2-1.3) 08/18/23 05:25
AST 12 U/L (14-36) L 08/18/23 05:25
ALT < 10 U/L (0-35) 08/18/23 05:25
Alkaline Phosphatase 50 U/L (38-126) 08/18/23 05:25
Most recent labs reviewed.
Micro Results:
08/17/23 21:23 Blood Culture - Preliminary
Blood/Venous No Growth in 4 days- Final report to follow
08/18/23 11:25 Urine Culture - Final
Urine Escherichia coli
08/18/23 11:25 Respiratory Culture - Final
Bronch Left Lower Lobe Proteus mirabilis
Gram Stain - Final
08/17/23 22:00 Blood Culture - Preliminary
Blood/Venous Coagulase neg. staphylococcus
Additional testing on request
Gram Stain - Preliminary
08/18/23 06:21 MRSA Screen - Final
Nose No Methicillin Resistant Staphylococcus aureus isolated.
Imaging:
08/19/2023 Renal ultrasound: Severe bilateral renal disease (left > right), increased since 2021. 4.8 mm nonobstructing left intrarenal calculus noted. No evidence for hydronephrosis.
08/19/2023 CXR (portable): Improved inflation of the left lung, with findings compatible with improvement in mucous plugging and atelectasis.
08/17/2023 CT chest without contrast: Occluded left mainstem bronchus presumably secondary to mucous plugging with complete atelectasis of the left lung and left-sided volume loss. Small to moderate right pleural effusion is noted. Please see full
dictation for additional detail.
--- NOTE | 2023-08-22 15:13 | W.PN.HOSP.TC ---
Today's Communication/Plan
-
hypotonic IVF running; monitor BMP
continue mucolytics/chest PT/VEST. continue TC
continue IV Abx
Assessment / Plan
Assessment / Plan
08/18/23 11:25 Bronch Left Lower Lobe Respiratory Culture - Final
Proteus mirabilis
08/18/23 11:25 Bronch Left Lower Lobe Gram Stain - Final
08/18/23 11:25 Urine Urine Culture - Preliminary
Escherichia coli
08/17/23 21:23 Blood/Venous Blood Culture - Preliminary
No Growth in 48 hours- Final report to follow
08/17/23 22:00 Blood/Venous Blood Culture - Preliminary
Coagulase neg. staphylococcus
Additional testing on request
08/17/23 22:00 Blood/Venous Gram Stain - Preliminary
08/18/23 06:21 Nose MRSA Screen - Final
No Methicillin Resistant Staphylococcus aureus isolated.
CT chest:
1. Occluded left main stem bronchus, presumably secondary to mucous plugging, with complete atelectasis of the left lung and left-sided volume loss. Small to moderate-sized left-sided pleural effusion.
2. Small to moderate right pleural effusion with adjacent compressive atelectasis. Nonspecific scattered interstitial opacities within the aerated portions of the right lung.
3. Moderate cardiomegaly with pericardial effusion.
Echo: EF 60-65%. No RWMA. Mild concentric left ventricular hypertrophy. Normal diastolic function. Normal right ventricular size and function. Normal atria. Mild tricuspid regurgitation. Estimated pulmonary artery pressure of 37 mmHg assuming a
right atrial pressure of 3 mmHg. Small pericardial effusion without evidence of hemodynamic compromise. When compared to prior study on 03/22/2022, there is no significant change.
Renal U/S:
1. SEVERE BILATERAL RENAL DISEASE (left greater than right) which appears to have increased since 11/11/2021.
2. 4.8 mm nonobstructing left intrarenal calculus.
3. No sonographic evidence for hydronephrosis.
Assessment:
Acute on chronic hypercapnic/hypoxemic respiratory failure:
-due to near opacification of the left hemithorax likely secondary to mucous plugging/atelectasis versus large left pleural effusion/pneumonia
-h/o chronic hypercapnic/hypoxemic respiratory failure secondary to COVID in 2019 on baseline 0.5 L trach collar during the day, ventilator at nighttime
-Chest x-ray shows progressive near complete opacification throughout the left hemithorax.
-ABG on admission showed hypercarbia/hypoxemic respiratory failure pCO2 52, pH 7.24, pO2 59
-BiPAP/PSV, currently on 3L TC
-CT chest above
-s/p emergency bronchoscopy 08/18/23. No large mucous plug bilaterally. Lingula had significant secretions and BAL was performed.
-cont Mucomyst/duonebs
-pulm following
-BAL Cx with proteus, UCx with E coli (question if actually UTI)
-currently on Unasyn, day 6 of Abx; ID following
CHINTAN
Hypernatremia
-continue IVF per Nephrology
-holding ACEi
-renal U/S above
-Cr has not improved; this may represent CKD4
-SPEP/UPEP pending
Anemia of chronic disease and Fe deficiency:
-s/p 2U pRBCs and hb 10.3
-Continue iron supplement
Other problems:
Hypernatremia: free water intake encouraged. Hypotonic IVF Started
DM2: cont Lantus/SSI/accuchecks
Hx of small to moderate pericardial effusion
Essential hypertension: cont Norvasc/doxazosin. Holding lisinopril.
Hyperlipidemia: Continue statin
Coronary artery disease status post angioplasty: cont ASA/BB
h/o C. diff
Ambulatory dysfunction wheelchair-bound since June 2019
Spinal stenosis
and daughter updated at bedside.
FULL/heparin
Anticipated Discharge: > 48 hours
Subjective/Interval History
-
Date of Service: August 22, 2023
still with moderate amounts of secretions, tolerating VEST and TC
Objective Data
-
Labs:
Laboratory Results
08/22/23 08/22/23
05:17 20:00
WBC 6.8
Hgb 10.3 L
Hct 32.8 L
Plt Count 222
Sodium 149 H Pending
Potassium 3.7 Pending
Chloride 119 H Pending
Carbon Dioxide 22 Pending
BUN 30 H Pending
Creatinine 2.5 H Pending
Glucose 58 L Pending
Calcium 8.3 L Pending
Vital Signs:
Vital Signs
Temp Pulse Resp BP Pulse Ox
98.4 F 82 26 153/70 96
08/22/23 07:19 08/22/23 12:00 08/22/23 12:00 08/22/23 12:00 08/22/23 12:00
I&O
08/21/23 08/22/23 08/23/23
06:59 06:59 06:59
Intake Total 120 / 120 1080 / 1080
Balance 120 / 120 1080 / 1080
Physical Exam
-
General: No Apparent Distress
HEENT: Normocephalic and Atraumatic
Respiratory: Rhonchi; Negative Wheezes
Cardiac: Regular Rhythm and S1/S2
GI: Soft and Nontender
Genito-urinary: No Costovertebral Tender
Musculoskeletal: No Edema
Neuro: AO x 3
Hematologic / Lymphatic: No Lymphadenopathy
Psych: Calm
Data Reviewed
-
Total Time Spent with Patient (in minutes): 45
Labs: Labs Reviewed by me
[2023-08-22] MEDS: LIPITOR PO (17:53)
[2023-08-22 18:19] LABS: Glucose - Point of Care 97 mg/dl (70-99)
[2023-08-22] MEDS: CARDURA 1 MG PO (19:55)
[2023-08-22 20:49] LABS: Blood Urea Nitrogen 29 mg/dl (7-17); Calcium 8.4 mg/dl (8.4-10.2); Carbon Dioxide 17 mmol/L (22-30); Chloride 117 mmol/L (98-107); Estimated Creatinine Clearance 20 ml/min; Glucose 125 mg/dl (70-99); Potassium 3.8 mmol/L (3.5-5.1); Sodium 142 mmol/L (135-145)
[2023-08-22] MEDS: LANTUS 0.0400000000000000008 UNITS SC (21:46)
--- NOTE | 2023-08-22 21:48 | VATNOTE ---
CALLED TO RE-ESTABLISH NEW IV SITE. PT WITH NO CURRENT SITE. RUE GROSSLY SWOLLEN FROM [facility] TO [facility].PCN IN TO OBSERVE NOTED FINDINGS. NEW SITE ESTABLISHED DOCUMENTED IN [facility]. RUE ELEVATED ON PILLOW.
[2023-08-22 21:58] LABS: Glucose - Point of Care 133 mg/dl (70-99)
[2023-08-23] VITALS (11 sets, daily range): BP systolic 116–162; BP diastolic 54–75
--- NOTE | 2023-08-23 01:36 | W.PN.UPDATE ---
Update Note
Progress Note Update
RUE is swelling, warm to touch, patient had IV access that was removed earlier. 3+ pulse and cap refill within normal. New order of RUE /US was placed.
--- NOTE | 2023-08-23 01:37 | PTCARENOTE ---
pt remains on vent, oral care done, no complaints of pain. right arm noted to be very swollen, +2 edema. Doppler pulse bounding, cap refill WNL, arm warm and pale. IV site taken out, new one placed. notified SALON DESIGNER- ultrasound of right arm ordered for
the AM.
[2023-08-23] MEDS: UNASYN IV ×2 (02:24→14:24)
[2023-08-23 03:03] LABS: Glucose - Point of Care 105 mg/dl (70-99)
[2023-08-23 05:25] LABS: Hematocrit 29.4 % (37.0-47.0); Hemoglobin 8.9 g/dL (12.0-16.0); Mean Corp Hgb Conc. 30.3 g/dL (33.0-37.0); Mean Corpuscular Hgb 28.3 pg (27.0-31.0); Mean Corpuscular Volume 93.6 fL (81.0-99.0); Platelet Count 176 10^3/uL (130-400); Red Blood Cell Count 3.14 10^6/uL (4.20-5.40); Red Cell Dist. Width 14.7 % (11.5-14.5); White Blood Cell Count 5.6 10^3/uL (4.8-10.8)
[2023-08-23 05:31] LABS: Blood Urea Nitrogen 28 mg/dl (7-17); Carbon Dioxide 18 mmol/L (22-30); Chloride 118 mmol/L (98-107); Estimated Creatinine Clearance 18 ml/min; Glucose 101 mg/dl (70-99); Potassium 3.5 mmol/L (3.5-5.1); Sodium 144 mmol/L (135-145); eGFR 19.99
[2023-08-23 07:43] LABS: Glucose - Point of Care 111 mg/dl (70-99)
[2023-08-23] MEDS: MUCOMYST 10% 2 ML INH ×2 (08:17→21:03)
[2023-08-23] MEDS: DUONEB 3 ML INH ×2 (08:17→21:03)
[2023-08-23] MEDS: VITAMIN D3 (cholecalciferol) 25 MCG PO (09:10)
[2023-08-23] MEDS: FEOSOL 325 MG PO ×2 (09:10→20:21)
[2023-08-23] MEDS: NORVASC 5 MG PO (09:10)
[2023-08-23] MEDS: LOPRESSOR 50 MG PO ×2 (09:10→20:15)
[2023-08-23] MEDS: VITAMIN B-12 1000 MCG PO (09:10)
[2023-08-23] MEDS: ASPIR LOW (ENTERIC COATED) 81 MG PO (09:10)
[2023-08-23] MEDS: MUCINEX 600 MG PO ×2 (09:11→20:15)
[2023-08-23] MEDS: HEPARIN 5000 UNITS SC ×2 (09:11→20:15)
--- NOTE | 2023-08-23 09:54 | W.PN.NEPH.PH ---
Today's Communication / Plan
-
24h urine
Assessment/Plan
-
IMP:
Acute on chronic hypercapnic/hypoxemic respiratory failure
-h/o chronic hypercapnic/hypoxemic respiratory failure secondary to COVID in 2019 on baseline 0.5 L trach collar during the day, ventilator at nighttime
CHINTAN
Anemia of chronic disease
mild hypernatremia
bilat pleural effusion
IDDM2
Hx of small to moderate pericardial effusion
Essential hypertension
Hyperlipidemia
Coronary artery disease status post angioplasty
h/o C. diff
Ambulatory dysfunction wheelchair-bound since June 2019
Spinal stenosis
h/o K stone
Hypoalbuminemia
Plan:
abx course defined by ID
follow BMP
24 hour urine collection, will need hart for collection given stool incontinence
await serologies
d/w family. She will likely benefit from renal biopsy but technically difficult given trach. This may ultimately be better handled at [facility], so long as Cr holds
high risk situation
-
-
Date of Service: August 23, 2023
CC / HPI / ROS
-
Chief Complaint:
CHINTAN
History of Present Illness:
CHINTAN/Cr up at 2.6
urine output not measured
hypernatremia better
k stable
hgb low at 8.9
Review of Systems:
awake
minimal secretion per staff
offers no sob
no fever
Labs
-
Labs:
WBC 5.6 10^3/uL (4.8-10.8) 08/23/23 04:57
RBC 3.14 10^6/uL (4.20-5.40) L 08/23/23 04:57
Hgb 8.9 g/dL (12.0-16.0) L 08/23/23 04:57
Hct 29.4 % (37.0-47.0) L 08/23/23 04:57
Plt Count 176 10^3/uL (130-400) D 08/23/23 04:57
Sodium 144 mmol/L (135-145) 08/23/23 04:57
Potassium 3.5 mmol/L (3.5-5.1) 08/23/23 04:57
Chloride 118 mmol/L (98-107) H 08/23/23 04:57
Carbon Dioxide 18 mmol/L (22-30) L 08/23/23 04:57
BUN 28 mg/dl (7-17) H 08/23/23 04:57
Creatinine 2.6 mg/dL (0.6-1.0) H 08/23/23 04:57
eGFR 19.99 08/23/23 04:57
Glucose 101 mg/dl (70-99) H 08/23/23 04:57
Calcium 8.0 mg/dl (8.4-10.2) L 08/23/23 04:57
Uni-L-Cdkbmaofmsh Pept 30384 pg/ml 08/18/23 05:25
Albumin 2.6 g/dl (3.5-5.0) L 08/18/23 05:25
Physical Exam
-
Vital Signs:
Vital Signs
Temp Pulse Resp BP Pulse Ox
98.3 F 77 18 126/57 95
08/23/23 01:28 08/23/23 06:00 08/23/23 06:00 08/23/23 06:00 08/23/23 08:30
Cardiovascular:: Regular rate and rhythm
Respiratory:: Bilateral: Coarse
Lung Excursion:: Normal
Abdomen:: Nontender and Soft
Bowel Sounds:: Normal
Extremity Edema:: +3: Bilateral: (arms)
--- NOTE | 2023-08-23 10:05 | W.PN.PUL.V3 ---
Today's Communication / Plan
-
Mucus clearing devices
Attempt to get vest as an outpatient-no obvious bronchiectasis on the last 2 CT chest, recurrent lower respiratory tract infections
Trach collar and Passy-Grandy valve with supervision
Continue antibiotics
Assessment
-
Patient is a 62-year-old female status post Covid/ECMO/tracheostomy tube with recurrent hospitalizations for hypercapnic and hypoxemic respiratory failure presented with hypoxemia, hypercapnia, mental status changes, and left lung opacification with
suspected mucous plug and pulmonary was consulted for atelectasis/mucous plug/respiratory failure on 08/17/2023.
Hypoxemic and hypercapnic respiratory failure due to mucous plug/left lung atelectasis
ABG 08/17/2023--52/59/7 0.24
Mucous plug/left lung atelectasis
Status post emergent bronchoscopy at the bedside 08/18/2023-mucous plugs removed from the left
Pneumonia
Left pleural effusion
CHINTAN
Ooqirt-xfpeatnwtz-evghovinjv 7.0
Hypocalcemia
Hypernatremia
Metabolic and respiratory acidosis
Conditions present prior to admission:
Chronic hypercapnic/hypoxemic respiratory failure/chronic tracheostomy/nocturnal ventilation.
Severe Covid/ECMO 2019.
Diabetes.
Hypertension.
CAD/angioplasty 2020.
Recurrent UTI.
Ambulatory dysfunction/wheelchair-bound.
Chronic anemia.
Overweight.
Renal calculi.
Laparoscopic cholecystectomy 07/2020. Bilateral ureteroscopy with lithotripsy of the right renal stone and clearing of left renal pelvic fungal ball. Laminectomy. .
Plan
Respiratory decompensation due to mucous plug and complete left lung atelectasis-note moderate pleural effusion on the left as well.
Emergent bronchoscopy performed 08/18/2023 with some mucous plugs removed
Continue nocturnal mechanical ventilation.
Chest x-ray 08/19/2023: improved aeration of the left lung. Findings compatible with improved mucous plugging/atelectasis. No significant pleural effusion noted.
Chest x-ray 08/20/2023-complete left lower lobe atelectasis, moderate right lower lobe airspace disease
Mucomyst continue
Nebulizers continues
Mucolytic's
Vest therapy twice daily-will try cuffolator-reviewed with WEIGHING STATION OPERATOR
Rest on ventilator overnight
CPAP/pressure support and trach collar weans during the daytime-May use Passy-Grandy valve with supervision
Aspiration precautions
Routine tracheostomy tube care continues
Cultures reviewed
Bronchoscopy cultures Proteus-pansensitive
Continue Unasyn
Infectious disease following-correspondence reviewed
Follow renal function
Nephrology following
Monitor for fluid overload as proBNP was elevated at 14,500
Monitor hemoglobin-status post 1 unit packed red blood cells during this admission.
Last hemoglobin 10.3 on 08/22/2023
DVT prophylaxis-on heparin
Early mobilization/bedside range of motion-baseline wheelchair-bound and ambulatory dysfunction
Primary team has requested case management to see if vest therapy could be performed as an outpatient
The patient was last seen in the pulmonary office by Kalpana Mobley NP 06/01/2023 and has an appointment 09/07/2023 at 10:30 AM

Diagnostic data:
CXR 04-27, reviewed, L basilar atelectasis
CXR 04-19, resolved total L atelectasis, currently back to chronic L basilar atelectasis. New tracheostomy
CXR 04-16, portable, L basilar atelectasis
CXR 04/11/22- 1. Complete opacification of the left hemithorax, likely on the basis of a large pleural effusion and compressive atelectasis upon the left lung. Mild right basilar pneumonia suspected
Chest x-ray 08/17/2023-near complete opacification throughout the left Jovanni thorax
Echocardiogram 01/10/22-EF 60-65%, no significant valvular disease, small pericardial effusion
Echocardiogram 03/22/22: Normal left ventricular chamber size. Normal left ventricular systolic�function. Normal regional wall motion. Normal left ventricular wall thickness.�Left ventricular ejection fraction is 60-65%. Mild tricuspid
regurgitation.�Small to moderate pericardial effusion without evidence of hemodynamic�compromise.�Compared to the previous echo Dec 2021, there is no significant change.
CT CHEST 04/11/22- �A moderate to large left pleural effusion and complete collapse/atelectasis of the left lung account for the left hemithorax opacification on the prior chest radiograph. Findings are in part likely secondary to mucous plugging
given the presence of opacification of the left mainstem bronchus and left upper and lower lobe bronchi, patchy opacifications right middle and lower lobe suspicious for pneumonia, moderate right pleural effusion and ill-defined sclerotic lesion
T12, osseous metastasis not completely excluded
CT CHEST 03/22/22 - There is no CT evidence for pulmonary embolism. No aortic dissection.There are extremely large bilateral pleural effusions right greater than left and associated bilateral consolidation most prominent in the left lower
lobe.Cardiomegaly. Increased pericardial effusion.
CT chest 08/17/2023-occluded left mainstem bronchus presumably mucous plugs with complete atelectasis left lung moderate size left pleural effusion, small to moderate right pleural effusion
VSE 04/28/22: No aspiration. Laryngeal penetration with cough with thin liquids by cup.
Spirometry 09/09/21-FEV1 790 mL-36%, FVC 790 mL 27%. Some difficulties with maneuver and thus may offer unreliability. Severe restriction.�������
PFT 02/08/22-FVC 1.01/30%, FEV1 0.70/35%, ratio 69%, unable to perform lung volumes and diffusing capacity.
Subjective Data
-
Date of Service:
Date of Service: August 23, 2023
Chief Complaint: Pulmonary Follow Up (Pneumonia/mucous plug) and Dyspnea Follow Up
Subjective:
Improved, less short of breath, moderate amount secretions, tolerating trach collar, no complaints of chest pain or abdominal pain
Review of Systems
General: Other (Per HPI)
Objective Data
Data Reviewed
Vital Signs / I&O:
Vital Signs
Temp Pulse Resp BP Pulse Ox
98.3 F 74 19 126/57 97
08/23/23 01:28 08/23/23 08:40 08/23/23 08:40 08/23/23 06:00 08/23/23 08:40
Intake and Output
08/22/23 08/23/23 08/24/23
06:59 06:59 06:59
Intake Total 1080 / 1080 820 / 820
Balance 1080 / 1080 820 / 820
SaO2: 97
Nasal Cannula flow liters per minute: 1
Physical Exam
General: Respiratory Distress (n) and Comfortable
HEENT: Normocephalic, Anicteric, Moist Mucous Membranes, Tracheotomy and Other (Tracheotomy tube in place. No significant secretion. No air leak. Well-healed)
Cardiovascular: Regular Rhythm
Respiratory: Clear (Improved aeration on the left), Wheeze (n), Rhonchi (Few expiratory), Non-Labored Respirations, Accessory Resp Muscle Use (n) and Stridor (n)
GI: Soft and Non Distended
Neurology: Awake, Alert and Other (Generalized weakness)
Skin: Warm, Good Color, Cyanosis (n), Jaundice (n) and Rash (n)
Labs/Micro/Reports
Lab Data
08/23/23 04:57
08/23/23 04:57
Microbiology
08/17/23 21:23 Blood/Venous Blood Culture - Final
No Growth - Final Report
08/18/23 11:25 Urine Urine Culture - Final
Escherichia coli
08/18/23 11:25 Bronch Left Lower Lobe Respiratory Culture - Final
Proteus mirabilis
08/18/23 11:25 Bronch Left Lower Lobe Gram Stain - Final
--- NOTE | 2023-08-23 10:08 | W.PN.HOSP.TC ---
Today's Communication/Plan
-
24 hour urine collection/Bond today
IVF per Nephrology
finish Abx as per ID
continue mucous clearance. evaluate Vest therapy option for home, will d/w CM/pulm
Assessment / Plan
Assessment / Plan
08/18/23 11:25 Bronch Left Lower Lobe Respiratory Culture - Final
Proteus mirabilis
08/18/23 11:25 Bronch Left Lower Lobe Gram Stain - Final
08/18/23 11:25 Urine Urine Culture - Preliminary
Escherichia coli
08/17/23 21:23 Blood/Venous Blood Culture - Preliminary
No Growth in 48 hours- Final report to follow
08/17/23 22:00 Blood/Venous Blood Culture - Preliminary
Coagulase neg. staphylococcus
Additional testing on request
08/17/23 22:00 Blood/Venous Gram Stain - Preliminary
08/18/23 06:21 Nose MRSA Screen - Final
No Methicillin Resistant Staphylococcus aureus isolated.
CT chest:
1. Occluded left main stem bronchus, presumably secondary to mucous plugging, with complete atelectasis of the left lung and left-sided volume loss. Small to moderate-sized left-sided pleural effusion.
2. Small to moderate right pleural effusion with adjacent compressive atelectasis. Nonspecific scattered interstitial opacities within the aerated portions of the right lung.
3. Moderate cardiomegaly with pericardial effusion.
Echo: EF 60-65%. No RWMA. Mild concentric left ventricular hypertrophy. Normal diastolic function. Normal right ventricular size and function. Normal atria. Mild tricuspid regurgitation. Estimated pulmonary artery pressure of 37 mmHg assuming a
right atrial pressure of 3 mmHg. Small pericardial effusion without evidence of hemodynamic compromise. When compared to prior study on 03/22/2022, there is no significant change.
Renal U/S:
1. SEVERE BILATERAL RENAL DISEASE (left greater than right) which appears to have increased since 11/11/2021.
2. 4.8 mm nonobstructing left intrarenal calculus.
3. No sonographic evidence for hydronephrosis.
Assessment:
Acute on chronic hypercapnic/hypoxemic respiratory failure:
-due to near opacification of the left hemithorax likely secondary to mucous plugging/atelectasis versus large left pleural effusion/pneumonia
-h/o chronic hypercapnic/hypoxemic respiratory failure secondary to COVID in 2019 on baseline 0.5 L trach collar during the day, ventilator at nighttime
-Chest x-ray shows progressive near complete opacification throughout the left hemithorax.
-ABG on admission showed hypercarbia/hypoxemic respiratory failure pCO2 52, pH 7.24, pO2 59
-BiPAP/PSV, currently on 3L TC
-CT chest above
-s/p emergency bronchoscopy 08/18/23AM. No large mucous plug bilaterally. Lingula had significant secretions and BAL was performed.
-cont Mucomyst/duonebs
-pulm following
-BAL Cx with proteus, UCx with E coli (question if actually UTI)
-currently on Unasyn, day 09/23 of Abx; ID following
CHINTAN
Hypernatremia
-continue IVF per Nephrology
-holding ACEi
-renal U/S above
-Cr has not improved; this may represent CKD4
-SPEP/UPEP pending
-24 hour urine collection/Bond ordered
-may need biopsy eventually
Anemia of chronic disease and Fe deficiency:
-s/p 2U pRBCs and hb 8.9
-Continue iron supplement
Other problems:
Hypernatremia: free water intake encouraged. improved with Hypotonic IVF
DM2: cont Lantus/SSI/accuchecks
Hx of small to moderate pericardial effusion
Essential hypertension: cont Norvasc/doxazosin. Holding lisinopril.
Hyperlipidemia: Continue statin
Coronary artery disease status post angioplasty: cont ASA/BB
h/o C. diff
Ambulatory dysfunction wheelchair-bound since June 2019
Spinal stenosis
and daughter updated at bedside.
RUE Swelling
- US pending
FULL/heparin
Anticipated Discharge: > 48 hours
Subjective/Interval History
-
Date of Service: August 23, 2023
no new complaints
on trach collar
Objective Data
-
Labs:
Laboratory Results
08/23/23
04:57
WBC 5.6
Hgb 8.9 L
Hct 29.4 L
Plt Count 176 D
Sodium 144
Potassium 3.5
Chloride 118 H
Carbon Dioxide 18 L
BUN 28 H
Creatinine 2.6 H
Glucose 101 H
Calcium 8.0 L
Vital Signs:
Vital Signs
Temp Pulse Resp BP Pulse Ox
98.3 F 74 19 126/57 97
08/23/23 01:28 08/23/23 08:40 08/23/23 08:40 08/23/23 06:00 08/23/23 10:05
I&O
08/22/23 08/23/23 08/24/23
06:59 06:59 06:59
Intake Total 1080 / 1080 820 / 820
Balance 1080 / 1080 820 / 820
Physical Exam
-
General: No Apparent Distress and Appears Chronically Ill
HEENT: Normocephalic and Atraumatic
Respiratory: Rhonchi
Cardiac: Regular Rhythm
GI: Soft
Neuro: AO x 3
Psych: Calm
Data Reviewed
-
Total Time Spent with Patient (in minutes): 42
Labs: Labs Reviewed by me
[2023-08-23 11:04] LABS: Glucose - Point of Care 129 mg/dl (70-99)
[2023-08-23 11:55] LABS: Albumin 2.73 g/dL (3.75-5.01); Alpha 1 Globulin 0.31 g/dL (0.19-0.46); Alpha 2 Globulin 0.67 g/dL (0.48-1.05); SPEP IFE Reflex Not Done; Total Protein-Electrophoresis 5.4 g/dL (6.3-8.2)
--- NOTE | 2023-08-23 12:09 | CM ---
Addendum entered by Kari Veronica RN 08/23/23 12:41:
[facility] referral - SW added for moth exterminator planning/resources.
Original Note:
Patient with Hx baseline trach collar daytime, ventilator nighttime, paraplegia with Dx Acute on chronic hypercapnic/hypoxemic respiratory failure. Trach collar daytime, vent/CPAP HS. Receiving Mucomyst, IV Abx, IVF. 24 hour urine
collection/Bond today.
Request from [employer] to see if patient qualifies for Smart Vest at home, for targeted d/c date 08/24---> provided update patient does not have a qualifying Dx for the SmartVest.
Spoke with Rep Marlene for Smart Vest; provided all Dx per chart, patient does not have qualifying Dx for SmartVest that would be covered by insurance.
Met with patient, Theron (cell [phone]) and spoke with daughter Martina; all informed patient will not qualify for SmartVest therapy at home, and possible d/c date is 08/24. Daughter confirms all necessary DME is in place (see initial
CM note) including suctioning equipment. 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 Martina says that the patient receives 360 hrs of caregiver services/yr through insurance, which have already been used this year. They cannot afford to
pay privately for a caregiver and the patient did not qualify for the [facility] Waiver program ( over income). She would like to have [facility] again with if ICE CREAM FREEZER aide can be added- agree to refer.
Spoke with Timur Aldana [facility] (ph [phone], fax [phone]); they do have a ICE CREAM FREEZER available for one hour visits. [facility].
Plan home with [facility] via ambulance.
--- NOTE | 2023-08-23 13:12 | W.PN.ID1 ---
Date of Service
Date of Service: August 23, 2023
Today's Communication
Complete course of abx today.
Assessment / Plan
Left lung white out presumably secondary to mucous plugging
- s/p bronchoscopy
Bronchitis +/- PNA 2* Proteus mirabilis
Chronic respiratory failure
Hypernatremia
CKD
Bacteriuria with E. coli
CAD
HTN
DM
Anemia
Dyslipidemia
Recommendations:
White count remained stable. Patient remains afebrile.
Completing course of abx today.
Little more to offer from an Infectious Diseases perspective.
Will see again at your request.
Chief Complaint
-: Pneumonia
Subjective / Review of Systems
Review of Systems: No Fever and No Chills
Vital Signs / Physical Exam
Vital Signs
Vital Signs
Temp Pulse Resp BP Pulse Ox
97.5 F 74 19 126/57 92
08/23/23 11:14 08/23/23 08:40 08/23/23 08:40 08/23/23 06:00 08/23/23 11:06
Physical Exam
Constitutional: No Acute Distress, Comfortable, Chronically Ill and Non-toxic
Eyes: No Conjunctival Hemorrhage and Sclera Anicteric
Oropharyngeal: Other (Tracheostomy in place with Passy-Arianna valve. Trach collar in place.)
Cardiovascular: S1/S2; Negative S3/S4
Pulmonary: Coarse, Non Labored and Other (Trach collar in place); Negative Wheezes
Gastrointestinal: Soft, Non Tender and Non Distended
Neurological: Awake and Alert
Psychological: Calm
Objective Data
Lab Data
Lab Results
08/23/23 04:57
08/23/23 04:57
Estimated Creat Clear 18 ml/min 08/23/23 04:57
Lactic Acid Cancelled 08/18/23 01:30
Total Bilirubin 0.2 mg/dl (0.2-1.3) 08/18/23 05:25
AST 12 U/L (14-36) L 08/18/23 05:25
ALT < 10 U/L (0-35) 08/18/23 05:25
Alkaline Phosphatase 50 U/L (38-126) 08/18/23 05:25
Most recent labs reviewed.
Micro Results:
08/17/23 21:23 Blood Culture - Final
Blood/Venous No Growth - Final Report
08/18/23 11:25 Urine Culture - Final
Urine Escherichia coli
08/18/23 11:25 Respiratory Culture - Final
Bronch Left Lower Lobe Proteus mirabilis
Gram Stain - Final
08/17/23 22:00 Blood Culture - Preliminary
Blood/Venous Coagulase neg. staphylococcus
Additional testing on request
Gram Stain - Preliminary
08/18/23 06:21 MRSA Screen - Final
Nose No Methicillin Resistant Staphylococcus aureus isolated.
Imaging:
08/19/2023 Renal ultrasound: Severe bilateral renal disease (left > right), increased since 2021. 4.8 mm nonobstructing left intrarenal calculus noted. No evidence for hydronephrosis.
08/19/2023 CXR (portable): Improved inflation of the left lung, with findings compatible with improvement in mucous plugging and atelectasis.
08/17/2023 CT chest without contrast: Occluded left mainstem bronchus presumably secondary to mucous plugging with complete atelectasis of the left lung and left-sided volume loss. Small to moderate right pleural effusion is noted. Please see full
dictation for additional detail.
[2023-08-23] MEDS: D5W 1000 IV ×2 (14:24→22:39)
[2023-08-23] MEDS: LIPITOR 20 MG PO (17:08)
[2023-08-23 17:17] LABS: Glucose - Point of Care 166 mg/dl (70-99)
[2023-08-23] MEDS: CARDURA 1 MG PO (20:14)
[2023-08-23 21:42] LABS: Glucose - Point of Care 161 mg/dl (70-99)
[2023-08-23] MEDS: LANTUS 0.0400000000000000008 UNITS SC (22:39)
[2023-08-24] VITALS (13 sets, daily range): BP systolic 140–174; BP diastolic 65–81; BMI 28.6
[2023-08-24 01:41] LABS: ANA, IgG Reflex to HEp-2 Detected (None Detected)
--- NOTE | 2023-08-24 04:09 | PTCARENOTE ---
PMV at bedside, able to mouth words, follows commands. Swallowed pills whole in water w/o issues, no s/s of aspiration. IVF renewed by covering STUDIO TECHNICIAN. HS CBG 161. Patient given complete bed bath, hair washed, all linens changed. Turned q2 hours, heels
floated. Sacral wound dressing changed. Incont large BM. Bond draining clear yellow urine with some sediment; 24 urine collection in progress. Tolerated Vent HS. Sp02 >92%. Course rhonchi throughout. Denies any pain.
Call giles within reach. Pt calls appropriately.
[2023-08-24 05:22] LABS: Hematocrit 30.7 % (37.0-47.0); Hemoglobin 9.7 g/dL (12.0-16.0); Mean Corp Hgb Conc. 31.6 g/dL (33.0-37.0); Mean Corpuscular Volume 88.5 fL (81.0-99.0); Mean Platelet Volume 10.8 fL (7.4-10.4); Platelet Count 198 10^3/uL (130-400); Red Blood Cell Count 3.47 10^6/uL (4.20-5.40); Red Cell Dist. Width 14.2 % (11.5-14.5); White Blood Cell Count 5.9 10^3/uL (4.8-10.8)
[2023-08-24 05:50] LABS: Blood Urea Nitrogen 28 mg/dl (7-17); Calcium 8.2 mg/dl (8.4-10.2); Carbon Dioxide 19 mmol/L (22-30); Chloride 114 mmol/L (98-107); Estimated Creatinine Clearance 19 ml/min; Glucose 127 mg/dl (70-99); Potassium 3.3 mmol/L (3.5-5.1); Sodium 142 mmol/L (135-145); eGFR 20.95
[2023-08-24 06:05] LABS: Complement C3 89 mg/dl (88-165)
[2023-08-24 08:30] LABS: Glucose - Point of Care 121 mg/dl (70-99)
[2023-08-24] MEDS: DUONEB 3 ML INH ×2 (08:40→20:53)
[2023-08-24] MEDS: MUCOMYST 10% 2 ML INH ×2 (08:40→20:52)
--- NOTE | 2023-08-24 09:17 | RESPNOTE ---
trach care completed with Ree. reece ties and gauze changed. suctioned x 3 for moderate of thick white mucus. transitioned to 28% TC, SpO2 92-94%. equal, nonlabored respirations. cuff deflated.
--- NOTE | 2023-08-24 09:30 | W.PN.PUL.V3 ---
Today's Communication / Plan
-
Continue weans
Antibiotics
Mucus clearing devices
Nebulizers
Suction as needed
Assessment
-
Patient is a 62-year-old female status post Covid/ECMO/tracheostomy tube with recurrent hospitalizations for hypercapnic and hypoxemic respiratory failure presented with hypoxemia, hypercapnia, mental status changes, and left lung opacification with
suspected mucous plug and pulmonary was consulted for atelectasis/mucous plug/respiratory failure on 08/17/2023.
Hypoxemic and hypercapnic respiratory failure due to mucous plug/left lung atelectasis
ABG 08/17/2023--52/59/7 0.24
Mucous plug/left lung atelectasis
Status post emergent bronchoscopy at the bedside 08/18/2023-mucous plugs removed from the left
Pneumonia
Left pleural effusion
CHINTAN
Evviji-[id number]-yyocfougzt 7.0
Hypocalcemia
Hypernatremia
Metabolic and respiratory acidosis
Conditions present prior to admission:
Chronic hypercapnic/hypoxemic respiratory failure/chronic tracheostomy/nocturnal ventilation.
Severe Covid/ECMO 2019.
Diabetes.
Hypertension.
CAD/angioplasty 2020.
Recurrent UTI.
Ambulatory dysfunction/wheelchair-bound.
Chronic anemia.
Overweight.
Renal calculi.
Laparoscopic cholecystectomy 07/2020. Bilateral ureteroscopy with lithotripsy of the right renal stone and clearing of left renal pelvic fungal ball. Laminectomy. .
Plan
Once again the patient's pulmonary decompensation due to mucous plug and complete left lung atelectasis-note moderate pleural effusion on the left as well.
Emergent bronchoscopy performed 08/18/2023 with some mucous plugs removed
Continue nocturnal mechanical ventilation.
Chest x-ray 08/19/2023: improved aeration of the left lung. Findings compatible with improved mucous plugging/atelectasis. No significant pleural effusion noted.
Chest x-ray 08/20/2023-complete left lower lobe atelectasis, moderate right lower lobe airspace disease
Continue with Mucomyst and nebulizers as needed
Continue with mucolytic's
Vest therapy twice daily-will try cuffolator-reviewed with HOME CARE LIAISON-while in the hospital-will not be covered in the outpatient setting-checked with case management
Rest on ventilator overnight
CPAP/pressure support and trach collar weans during the daytime-May use Passy-Custar valve with supervision
Aspiration precautions
Routine tracheostomy tube care continues
Cultures reviewed
Bronchoscopy cultures Proteus-pansensitive
Initially on Unasyn and then discontinued by infectious disease-observe off antibiotics
Infectious disease following-correspondence reviewed-they have now signed off
Follow renal function
Nephrology following
Monitor for fluid overload as proBNP was elevated at 14,500
Monitor hemoglobin-status post 1 unit packed red blood cells during this admission.
Last hemoglobin 9.7 on 08/24/2023
Upper extremity ultrasound 08/24/2023-no DVT
DVT prophylaxis-on heparin
Early mobilization/bedside range of motion-baseline wheelchair-bound and ambulatory dysfunction
Worked with case management-Vest therapy will not be covered in the outpatient setting.
The patient was last seen in the pulmonary office by Kalpana Mobley NP 06/01/2023 and has an appointment 09/07/2023 at 10:30 AM

Diagnostic data:
CXR 04-27, reviewed, L basilar atelectasis
CXR 04-19, resolved total L atelectasis, currently back to chronic L basilar atelectasis. New tracheostomy
CXR 04-16, portable, L basilar atelectasis
CXR 04/11/22- 1. Complete opacification of the left hemithorax, likely on the basis of a large pleural effusion and compressive atelectasis upon the left lung. Mild right basilar pneumonia suspected
Chest x-ray 08/17/2023-near complete opacification throughout the left Jovanni thorax
Echocardiogram 01/10/22-EF 60-65%, no significant valvular disease, small pericardial effusion
Echocardiogram 03/22/22: Normal left ventricular chamber size. Normal left ventricular systolic�function. Normal regional wall motion. Normal left ventricular wall thickness.�Left ventricular ejection fraction is 60-65%. Mild tricuspid
regurgitation.�Small to moderate pericardial effusion without evidence of hemodynamic�compromise.�Compared to the previous echo Dec 2021, there is no significant change.
CT CHEST 04/11/22- �A moderate to large left pleural effusion and complete collapse/atelectasis of the left lung account for the left hemithorax opacification on the prior chest radiograph. Findings are in part likely secondary to mucous plugging
given the presence of opacification of the left mainstem bronchus and left upper and lower lobe bronchi, patchy opacifications right middle and lower lobe suspicious for pneumonia, moderate right pleural effusion and ill-defined sclerotic lesion
T12, osseous metastasis not completely excluded
CT CHEST 03/22/22 - There is no CT evidence for pulmonary embolism. No aortic dissection.There are extremely large bilateral pleural effusions right greater than left and associated bilateral consolidation most prominent in the left lower
lobe.Cardiomegaly. Increased pericardial effusion.
CT chest 08/17/2023-occluded left mainstem bronchus presumably mucous plugs with complete atelectasis left lung moderate size left pleural effusion, small to moderate right pleural effusion
VSE 04/28/22: No aspiration. Laryngeal penetration with cough with thin liquids by cup.
Spirometry 09/09/21-FEV1 790 mL-36%, FVC 790 mL 27%. Some difficulties with maneuver and thus may offer unreliability. Severe restriction.�������
PFT 02/08/22-FVC 1.01/30%, FEV1 0.70/35%, ratio 69%, unable to perform lung volumes and diffusing capacity.
Subjective Data
-
Date of Service:
Date of Service: August 24, 2023
Chief Complaint: Pulmonary Follow Up (Pneumonia/mucous plug) and Dyspnea Follow Up
Subjective:
Tolerating weans, moderate amount secretions, manageable, no chest pain or abdominal pain
Review of Systems
General: Other
Objective Data
Data Reviewed
Vital Signs / I&O:
Vital Signs
Temp Pulse Resp BP Pulse Ox
98.2 F 84 28 156/69 93
08/24/23 07:20 08/24/23 09:00 08/24/23 09:00 08/24/23 08:00 08/24/23 09:00
Intake and Output
08/23/23 08/24/23 08/25/23
06:59 06:59 06:59
Intake Total 820 / 820 440 / 440
Output Total 500 / 500
Balance 820 / 820 -60 / -60
SaO2: 93
Nasal Cannula flow liters per minute: 1
Physical Exam
General: Respiratory Distress (n) and Comfortable
HEENT: Normocephalic, Anicteric, Moist Mucous Membranes, Tracheotomy and Other (Tracheotomy tube in place. No significant secretion. No air leak. Well-healed)
Cardiovascular: Regular Rhythm
Respiratory: Clear (Improved aeration on the left), Wheeze (n), Rhonchi (Few expiratory), Non-Labored Respirations, Accessory Resp Muscle Use (n) and Stridor (n)
GI: Soft and Non Distended
Neurology: Awake, Alert and Other (Generalized weakness)
Skin: Warm, Good Color, Cyanosis (n), Jaundice (n) and Rash (n)
Labs/Micro/Reports
Lab Data
08/24/23 05:03
08/24/23 05:03
Microbiology
08/17/23 21:23 Blood/Venous Blood Culture - Final
No Growth - Final Report
[2023-08-24] MEDS: FEOSOL 325 MG PO ×2 (09:47→19:43)
[2023-08-24] MEDS: NORVASC 5 MG PO (09:47)
[2023-08-24] MEDS: VITAMIN B-12 1000 MCG PO (09:47)
[2023-08-24] MEDS: LOPRESSOR 50 MG PO ×2 (09:48→19:43)
[2023-08-24] MEDS: MUCINEX 600 MG PO ×2 (09:48→19:43)
[2023-08-24] MEDS: ASPIR LOW (ENTERIC COATED) 81 MG PO (09:48)
[2023-08-24] MEDS: VITAMIN D3 (cholecalciferol) 25 MCG PO (09:48)
[2023-08-24] MEDS: HEPARIN 5000 UNITS SC ×2 (09:49→19:43)
--- NOTE | 2023-08-24 09:57 | W.PN.NEPH.PH ---
Today's Communication / Plan
-
K
Assessment/Plan
-
IMP:
Acute on chronic hypercapnic/hypoxemic respiratory failure
-h/o chronic hypercapnic/hypoxemic respiratory failure secondary to COVID in 2019 on baseline 0.5 L trach collar during the day, ventilator at nighttime
CHINTAN
Anemia of chronic disease
mild hypernatremia
bilat pleural effusion
IDDM2
Hx of small to moderate pericardial effusion
Essential hypertension
Hyperlipidemia
Coronary artery disease status post angioplasty
h/o C. diff
Ambulatory dysfunction wheelchair-bound since June 2019
Spinal stenosis
h/o K stone
Hypoalbuminemia
Plan:
abx course defined by ID
follow BMP
24 hour urine collection, will need hart for collection given stool incontinence
await serologies
d/w family. She will likely benefit from renal biopsy but technically difficult given trach. This may ultimately be better handled at [facility], so long as Cr holds
replete K
bicarb 650mg BID
-
-
Date of Service: August 24, 2023
CC / HPI / ROS
-
Chief Complaint:
CHINTAN
History of Present Illness:
CHINTAN/Cr stable at 2.5
Na normal
K low 3.3
hart for 24 h urine
Review of Systems:
awake
minimal secretion per staff
offers no sob
no fever
Labs
-
Labs:
WBC 5.9 10^3/uL (4.8-10.8) 08/24/23 05:03
RBC 3.47 10^6/uL (4.20-5.40) L 08/24/23 05:03
Hgb 9.7 g/dL (12.0-16.0) L 08/24/23 05:03
Hct 30.7 % (37.0-47.0) L 08/24/23 05:03
Plt Count 198 10^3/uL (130-400) 08/24/23 05:03
Sodium 142 mmol/L (135-145) 08/24/23 05:03
Potassium 3.3 mmol/L (3.5-5.1) L 08/24/23 05:03
Chloride 114 mmol/L (98-107) H 08/24/23 05:03
Carbon Dioxide 19 mmol/L (22-30) L 08/24/23 05:03
BUN 28 mg/dl (7-17) H 08/24/23 05:03
Creatinine 2.5 mg/dL (0.6-1.0) H 08/24/23 05:03
eGFR 20.95 08/24/23 05:03
Glucose 127 mg/dl (70-99) H 08/24/23 05:03
Calcium 8.2 mg/dl (8.4-10.2) L 08/24/23 05:03
Jta-S-Bqggoeokyyn Pept 58196 pg/ml 08/18/23 05:25
Albumin 2.6 g/dl (3.5-5.0) L 08/18/23 05:25
Physical Exam
-
Vital Signs:
Vital Signs
Temp Pulse Resp BP Pulse Ox
98.2 F 84 28 156/69 93
08/24/23 07:20 08/24/23 09:00 08/24/23 09:00 08/24/23 08:00 08/24/23 09:30
Cardiovascular:: Regular rate and rhythm
Respiratory:: Bilateral: Coarse
Lung Excursion:: Normal
Abdomen:: Nontender and Soft
Bowel Sounds:: Normal
Extremity Edema:: None: Bilateral:
--- NOTE | 2023-08-24 10:26 | W.PN.ID1 ---
Date of Service
Date of Service: August 24, 2023
Today's Communication
Sign off.
Assessment / Plan
Left lung white out presumably secondary to mucous plugging
- s/p bronchoscopy
Bronchitis +/- PNA 2* Proteus mirabilis
Chronic respiratory failure
Hypernatremia
CKD
Bacteriuria with E. coli
CAD
HTN
DM
Anemia
Dyslipidemia
Recommendations:
White count remained stable. Patient remains afebrile.
Patient clinically stable status post course of antibiotics.
Little more to offer from an Infectious Diseases perspective.
Will see again at your request.
Chief Complaint
-: Pneumonia
Subjective / Review of Systems
Review of Systems: No Fever and No Chills
Vital Signs / Physical Exam
Vital Signs
Vital Signs
Temp Pulse Resp BP Pulse Ox
98.2 F 84 28 156/69 93
08/24/23 07:20 08/24/23 09:00 08/24/23 09:00 08/24/23 08:00 08/24/23 09:30
Physical Exam
Constitutional: No Acute Distress, Comfortable, Chronically Ill and Non-toxic
Eyes: No Conjunctival Hemorrhage and Sclera Anicteric
Oropharyngeal: Other (Tracheostomy in place with Passy-Walton valve. )
Cardiovascular: S1/S2; Negative S3/S4
Pulmonary: Coarse, Non Labored and Other (Trach collar in place); Negative Wheezes
Gastrointestinal: Soft, Non Tender and Non Distended
Neurological: Awake and Alert
Psychological: Calm
Objective Data
Lab Data
Lab Results
08/24/23 05:03
08/24/23 05:03
Estimated Creat Clear 19 ml/min 08/24/23 05:03
Lactic Acid Cancelled 05/31/24 01:30
Total Bilirubin 0.2 mg/dl (0.2-1.3) 08/18/23 05:25
AST 12 U/L (14-36) L 08/18/23 05:25
ALT < 10 U/L (0-35) 08/18/23 05:25
Alkaline Phosphatase 50 U/L (38-126) 08/18/23 05:25
Most recent labs reviewed.
Micro Results:
08/17/23 21:23 Blood Culture - Final
Blood/Venous No Growth - Final Report
08/18/23 11:25 Urine Culture - Final
Urine Escherichia coli
08/18/23 11:25 Respiratory Culture - Final
Bronch Left Lower Lobe Proteus mirabilis
Gram Stain - Final
08/17/23 22:00 Blood Culture - Preliminary
Blood/Venous Coagulase neg. staphylococcus
Additional testing on request
Gram Stain - Preliminary
08/18/23 06:21 MRSA Screen - Final
Nose No Methicillin Resistant Staphylococcus aureus isolated.
Imaging:
08/19/2023 Renal ultrasound: Severe bilateral renal disease (left > right), increased since 2021. 4.8 mm nonobstructing left intrarenal calculus noted. No evidence for hydronephrosis.
08/19/2023 CXR (portable): Improved inflation of the left lung, with findings compatible with improvement in mucous plugging and atelectasis.
08/17/2023 CT chest without contrast: Occluded left mainstem bronchus presumably secondary to mucous plugging with complete atelectasis of the left lung and left-sided volume loss. Small to moderate right pleural effusion is noted. Please see full
dictation for additional detail.
[2023-08-24 11:27] LABS: Glucose - Point of Care 129 mg/dl (70-99)
[2023-08-24] MEDS: KCL ELIXIR 40 MEQ PO (11:55)
[2023-08-24] MEDS: SODIUM BICARBONATE 650 MG TUBE ×2 (11:55→19:43)
--- NOTE | 2023-08-24 13:31 | W.PN.HOSP.TC ---
Today's Communication/Plan
-
stop IVF
continue 24 hour urine collection
Assessment / Plan
Assessment / Plan
08/18/23 11:25 Bronch Left Lower Lobe Respiratory Culture - Final
Proteus mirabilis
08/18/23 11:25 Bronch Left Lower Lobe Gram Stain - Final
08/18/23 11:25 Urine Urine Culture - Preliminary
Escherichia coli
08/17/23 21:23 Blood/Venous Blood Culture - Preliminary
No Growth in 48 hours- Final report to follow
08/17/23 22:00 Blood/Venous Blood Culture - Preliminary
Coagulase neg. staphylococcus
Additional testing on request
08/17/23 22:00 Blood/Venous Gram Stain - Preliminary
08/18/23 06:21 Nose MRSA Screen - Final
No Methicillin Resistant Staphylococcus aureus isolated.
CT chest:
1. Occluded left main stem bronchus, presumably secondary to mucous plugging, with complete atelectasis of the left lung and left-sided volume loss. Small to moderate-sized left-sided pleural effusion.
2. Small to moderate right pleural effusion with adjacent compressive atelectasis. Nonspecific scattered interstitial opacities within the aerated portions of the right lung.
3. Moderate cardiomegaly with pericardial effusion.
Echo: EF 60-65%. No RWMA. Mild concentric left ventricular hypertrophy. Normal diastolic function. Normal right ventricular size and function. Normal atria. Mild tricuspid regurgitation. Estimated pulmonary artery pressure of 37 mmHg assuming a
right atrial pressure of 3 mmHg. Small pericardial effusion without evidence of hemodynamic compromise. When compared to prior study on 03/22/2022, there is no significant change.
Renal U/S:
1. SEVERE BILATERAL RENAL DISEASE (left greater than right) which appears to have increased since 11/11/2021.
2. 4.8 mm nonobstructing left intrarenal calculus.
3. No sonographic evidence for hydronephrosis.
Assessment:
Acute on chronic hypercapnic/hypoxemic respiratory failure:
-due to near opacification of the left hemithorax likely secondary to mucous plugging/atelectasis versus large left pleural effusion/pneumonia
-h/o chronic hypercapnic/hypoxemic respiratory failure secondary to COVID in 2019 on baseline 0.5 L trach collar during the day, ventilator at nighttime
-Chest x-ray shows progressive near complete opacification throughout the left hemithorax.
-ABG on admission showed hypercarbia/hypoxemic respiratory failure pCO2 52, pH 7.24, pO2 59
-BiPAP/PSV, currently on 3L TC
-CT chest above
-s/p emergency bronchoscopy 08/18/23. No large mucous plug bilaterally. Lingula had significant secretions and BAL was performed.
-cont Mucomyst/duonebs
-pulm following
-BAL Cx with proteus, UCx with E coli (question if actually UTI)
-completed Unasyn 7 day course
CHINTAN
Hypernatremia
-continue IVF per Nephrology
-holding ACEi
-renal U/S above
-Cr has not improved; this may represent CKD4
-SPEP/UPEP pending
-24 hour urine collection/Bond ongoing
-sodium bicarb added
-may need biopsy eventually but high risk due to Trach collar
Anemia of chronic disease and Fe deficiency:
-s/p 2U pRBCs and hb 9.7
-Continue iron supplement
Other problems:
Hypernatremia: free water intake encouraged. improved with Hypotonic IVF which are now stopped
DM2: cont Lantus/SSI/accuchecks
Hx of small to moderate pericardial effusion
Essential hypertension: cont Norvasc/doxazosin. Holding lisinopril.
Hyperlipidemia: Continue statin
Coronary artery disease status post angioplasty: cont ASA/BB
h/o C. diff
Ambulatory dysfunction wheelchair-bound since June 2019
Spinal stenosis
and daughter updated at bedside.
RUE Swelling
- US: No evidence for deep venous thrombosis of the right upper extremity.
FULL/heparin
Anticipated Discharge: Within 24 hours
Subjective/Interval History
-
Date of Service: August 24, 2023
no complaints
on TC satting well
Objective Data
-
Labs:
Laboratory Results
08/24/23
05:03
WBC 5.9
Hgb 9.7 L
Hct 30.7 L
Plt Count 198
Sodium 142
Potassium 3.3 L
Chloride 114 H
Carbon Dioxide 19 L
BUN 28 H
Creatinine 2.5 H
Glucose 127 H
Calcium 8.2 L
Vital Signs:
Vital Signs
Temp Pulse Resp BP Pulse Ox
98.4 F 84 28 156/69 93
08/24/23 11:20 08/24/23 09:00 08/24/23 09:00 08/24/23 08:00 08/24/23 09:30
I&O
08/23/23 08/24/23 08/25/23
06:59 06:59 06:59
Intake Total 820 / 820 440 / 440
Output Total 500 / 500
Balance 820 / 820 -60 / -60
Physical Exam
-
General: Well Developed and Well Nourished
HEENT: Normocephalic and Atraumatic
Respiratory: Rhonchi; Negative Wheezes
Cardiac: Regular Rhythm and S1/S2
GI: Soft
Genito-urinary: No Costovertebral Tender
Neuro: AO x 3
Psych: Calm
Data Reviewed
-
Total Time Spent with Patient (in minutes): 45
Labs: Labs Reviewed by me
[2023-08-24 15:55] LABS: 24 Hour Urine Total Volume 1500 ml
[2023-08-24 16:21] LABS: 24 Hour Urine Creatinine 0.612 gm/day (0.8-1.8); Urine Protein 129 mg/dl (0-12)
[2023-08-24] MEDS: LIPITOR 20 MG PO (16:32)
[2023-08-24 16:45] LABS: Glucose - Point of Care 139 mg/dl (70-99)
[2023-08-24 18:04] LABS: Myeloperoxidase Antibody 2 AU/mL (0-19); Serine Protease-3, IgG 9 AU/mL (0-19)
[2023-08-24] MEDS: CARDURA 1 MG PO (19:43)
[2023-08-24] MEDS: LANTUS 0.0400000000000000008 UNITS SC (21:39)
[2023-08-24 21:49] LABS: Glucose - Point of Care 148 mg/dl (70-99)
[2023-08-25] VITALS (11 sets, daily range): BP systolic 143–174; BP diastolic 60–80; BMI 28.6
--- NOTE | 2023-08-25 03:19 | PTCARENOTE ---
pt remains on the vent, periods of apnea on CPAP- changed to a/c- pt able to mouth words, suctioned x2 for white moderate secretions. q2t- incontinent of bowel, cleaned up.
[2023-08-25 05:42] LABS: Blood Urea Nitrogen 32 mg/dl (7-17); Calcium 8.3 mg/dl (8.4-10.2); Carbon Dioxide 18 mmol/L (22-30); Chloride 117 mmol/L (98-107); Estimated Creatinine Clearance 19 ml/min; Glucose 104 mg/dl (70-99); Potassium 3.7 mmol/L (3.5-5.1); Sodium 142 mmol/L (135-145); eGFR 19.99
[2023-08-25 05:44] LABS: Mean Corp Hgb Conc. 32.1 g/dL (33.0-37.0); Mean Corpuscular Hgb 28.8 pg (27.0-31.0); Mean Corpuscular Volume 89.5 fL (81.0-99.0); Mean Platelet Volume 10.9 fL (7.4-10.4); Platelet Count 179 10^3/uL (130-400); Red Blood Cell Count 3.13 10^6/uL (4.20-5.40); Red Cell Dist. Width 13.9 % (11.5-14.5); White Blood Cell Count 5.8 10^3/uL (4.8-10.8)
[2023-08-25 07:23] LABS: ANA, HEp-2, IgG Detected (<1:80)
[2023-08-25 07:29] LABS: ANA Pattern Homogeneous
[2023-08-25 07:53] LABS: Glucose - Point of Care 115 mg/dl (70-99)
[2023-08-25] MEDS: MUCOMYST 10% 2 ML INH (08:14)
[2023-08-25] MEDS: DUONEB 3 ML INH (08:14)
[2023-08-25] MEDS: MUCINEX 600 MG PO (09:23)
[2023-08-25] MEDS: LOPRESSOR 50 MG PO (09:23)
[2023-08-25] MEDS: NORVASC 5 MG PO (09:23)
[2023-08-25] MEDS: VITAMIN D3 (cholecalciferol) 25 MCG PO (09:23)
[2023-08-25] MEDS: VITAMIN B-12 1000 MCG PO (09:23)
--- NOTE | 2023-08-25 09:23 | W.PN.PUL.V3 ---
Today's Communication / Plan
-
Continue trach collar weans
Rest at night
Mucus clearing devices and vest therapy while hospitalized
Nephrology following for CHINTAN
Assessment
-
Patient is a 62-year-old female status post Covid/ECMO/tracheostomy tube with recurrent hospitalizations for hypercapnic and hypoxemic respiratory failure presented with hypoxemia, hypercapnia, mental status changes, and left lung opacification with
suspected mucous plug and pulmonary was consulted for atelectasis/mucous plug/respiratory failure on 08/17/2023.
Hypoxemic and hypercapnic respiratory failure due to mucous plug/left lung atelectasis
ABG 08/17/2023--52/59/7 0.24
Mucous plug/left lung atelectasis
Status post emergent bronchoscopy at the bedside 08/18/2023-mucous plugs removed from the left
Pneumonia
Left pleural effusion
CHINTAN
Jytojg-uztxepcscu-selmohsbxe 7.0
Hypocalcemia
Hypernatremia
Metabolic and respiratory acidosis
Conditions present prior to admission:
Chronic hypercapnic/hypoxemic respiratory failure/chronic tracheostomy/nocturnal ventilation.
Severe Covid/ECMO 2019.
Diabetes.
Hypertension.
CAD/angioplasty 2020.
Recurrent UTI.
Ambulatory dysfunction/wheelchair-bound.
Chronic anemia.
Overweight.
Renal calculi.
Laparoscopic cholecystectomy 07/2020. Bilateral ureteroscopy with lithotripsy of the right renal stone and clearing of left renal pelvic fungal ball. Laminectomy. .
Plan
The patient's pulmonary decompensation due to mucous plug and complete left lung atelectasis-note moderate pleural effusion on the left as well.
Emergent bronchoscopy performed 08/18/2023 with some mucous plugs removed
Continue nocturnal mechanical ventilation.
Chest x-ray 08/19/2023: improved aeration of the left lung. Findings compatible with improved mucous plugging/atelectasis. No significant pleural effusion noted.
Chest x-ray 08/20/2023-complete left lower lobe atelectasis, moderate right lower lobe airspace disease
Continue with Mucomyst and nebulizers as needed
Continue with mucolytic's
Vest therapy twice daily-will try cuffolator-reviewed with [employer]-while in the hospital-will not be covered in the outpatient setting-checked with case management
Rest on ventilator overnight
CPAP/pressure support and trach collar weans during the daytime-May use Passy-[place]ose[place] valve with supervision
Aspiration precautions
Routine tracheostomy tube care continues
Cultures reviewed
Bronchoscopy cultures Proteus-pansensitive
Initially on Unasyn and then discontinued by infectious disease-observe off antibiotics
Infectious disease following-correspondence reviewed-they have now signed off
Follow renal function
Nephrology following
Monitor for fluid overload as proBNP was elevated at 14,500
Intravenous fluids per nephrology
FLAVIO inhibitor on hold
Renal ultrasound noted
24-hour urine collection, SPEP/UPEP, may need biopsy
Monitor hemoglobin-status post 1 unit packed red blood cells during this admission.
Last hemoglobin 9.7 on 08/24/2023
Upper extremity ultrasound 08/24/2023-no DVT
DVT prophylaxis-on heparin
Early mobilization/bedside range of motion-baseline wheelchair-bound and ambulatory dysfunction
Worked with case management-Vest therapy will not be covered in the outpatient setting.
The patient was last seen in the pulmonary office by Kalpana Mobley NP 06/01/2023 and has an appointment 09/07/2023 at 10:30 AM

Diagnostic data:
CXR 04-27, reviewed, L basilar atelectasis
CXR 04-19, resolved total L atelectasis, currently back to chronic L basilar atelectasis. New tracheostomy
CXR 04-16, portable, L basilar atelectasis
CXR 04/11/22- 1. Complete opacification of the left hemithorax, likely on the basis of a large pleural effusion and compressive atelectasis upon the left lung. Mild right basilar pneumonia suspected
Chest x-ray 08/17/2023-near complete opacification throughout the left Jovanni thorax
Echocardiogram 01/10/22-EF 60-65%, no significant valvular disease, small pericardial effusion
Echocardiogram 03/22/22: Normal left ventricular chamber size. Normal left ventricular systolic�function. Normal regional wall motion. Normal left ventricular wall thickness.�Left ventricular ejection fraction is 60-65%. Mild tricuspid
regurgitation.�Small to moderate pericardial effusion without evidence of hemodynamic�compromise.�Compared to the previous echo Dec 2021, there is no significant change.
CT CHEST 04/11/22- �A moderate to large left pleural effusion and complete collapse/atelectasis of the left lung account for the left hemithorax opacification on the prior chest radiograph. Findings are in part likely secondary to mucous plugging
given the presence of opacification of the left mainstem bronchus and left upper and lower lobe bronchi, patchy opacifications right middle and lower lobe suspicious for pneumonia, moderate right pleural effusion and ill-defined sclerotic lesion
T12, osseous metastasis not completely excluded
CT CHEST 03/22/22 - There is no CT evidence for pulmonary embolism. No aortic dissection.There are extremely large bilateral pleural effusions right greater than left and associated bilateral consolidation most prominent in the left lower
lobe.Cardiomegaly. Increased pericardial effusion.
CT chest 08/17/2023-occluded left mainstem bronchus presumably mucous plugs with complete atelectasis left lung moderate size left pleural effusion, small to moderate right pleural effusion
VSE 04/28/22: No aspiration. Laryngeal penetration with cough with thin liquids by cup.
Spirometry 09/09/21-FEV1 790 mL-36%, FVC 790 mL 27%. Some difficulties with maneuver and thus may offer unreliability. Severe restriction.�������
PFT 02/08/22-FVC 1.01/30%, FEV1 0.70/35%, ratio 69%, unable to perform lung volumes and diffusing capacity.
Subjective Data
-
Date of Service:
Date of Service: August 25, 2023
Chief Complaint: Pulmonary Follow Up (Pneumonia/mucous plug) and Dyspnea Follow Up
Subjective:
Tolerating trach collar weans, moderate amount secretions, rested overnight on ventilator, no complaints of shortness of breath, chest pain or abdominal pain
Review of Systems
General: Other (Per HPI)
Objective Data
Data Reviewed
Vital Signs / I&O:
Vital Signs
Temp Pulse Resp BP Pulse Ox
98.8 F 92 20 143/68 96
08/25/23 07:18 08/25/23 08:15 08/25/23 08:15 08/25/23 04:00 08/25/23 08:35
Intake and Output
08/24/23 08/25/23 08/26/23
06:59 06:59 06:59
Intake Total 440 / 440 300 / 300
Output Total 500 / 500
Balance -60 / -60 300 / 300
SaO2: 96
Nasal Cannula flow liters per minute: 1
Physical Exam
General: Respiratory Distress (n) and Comfortable
HEENT: Normocephalic, Anicteric, Moist Mucous Membranes, Tracheotomy and Other (Tracheotomy tube in place. No significant secretion. No air leak. Well-healed)
Cardiovascular: Regular Rhythm
Respiratory: Clear (Improved aeration on the left), Wheeze (n), Rhonchi (Few expiratory), Non-Labored Respirations, Accessory Resp Muscle Use (n) and Stridor (n)
GI: Soft and Non Distended
Neurology: Awake, Alert and Other (Generalized weakness)
Skin: Warm, Good Color, Cyanosis (n), Jaundice (n) and Rash (n)
Labs/Micro/Reports
Lab Data
08/25/23 05:03
08/25/23 05:03
Microbiology
08/17/23 22:00 Blood/Venous Blood Culture - Final
Coagulase neg. staphylococcus
Additional testing on request
08/17/23 22:00 Blood/Venous Gram Stain - Final
08/17/23 21:23 Blood/Venous Blood Culture - Final
No Growth - Final Report
[2023-08-25] MEDS: HEPARIN 5000 UNITS SC (09:24)
[2023-08-25] MEDS: ASPIR LOW (ENTERIC COATED) 81 MG PO (09:24)
[2023-08-25] MEDS: FEOSOL 325 MG PO (09:24)
[2023-08-25] MEDS: SODIUM BICARBONATE 650 MG TUBE (09:24)
--- NOTE | 2023-08-25 10:19 | CM ---
Addendum entered by Kari Veronica RN 08/25/23 13:13:
Patient declined by main [facility] HH agency, [facility] due to patient's medical complexity.
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 Daughter is looking into possibly having [facility] Private Duty nurses again.
Plan home today by ambulance.
Addendum entered by Kari Veronica RN 08/25/23 12:13:
Notified by [place], that [facility] cannot accept due to trach/vent.
Spoke with Yared Wade, they are unable to accept due to trach/vent.
[facility]; she will check and see if they can accept.
Original Note:
Patient with Hx trach collar daytime, ventilator nighttime, paraplegia with Dx Acute on chronic hypercapnic/hypoxemic respiratory failure. Trach collar daytime, vent/CPAP HS. Suctioning.
Referral to [facility] reviewed in [facility] - they declined due to staff shortage.
Spoke with patient's Theron (cell [phone]) and daughter Martina; both agree to d/c home today by ambulance. states patient just started on Medicare last month. Informed them that [facility] declined - they agreed to a referral
to [facility].
Referral to [facility]on. She is aware of request by family for PHYSICAL SCIENCES PROFESSOR if possible.
Plan home today with [facility] by ambulance.
--- NOTE | 2023-08-25 10:38 | W.PN.HOSP.TC ---
Today's Communication/Plan
-
dc home later
Assessment / Plan
Assessment / Plan
08/18/23 11:25 Bronch Left Lower Lobe Respiratory Culture - Final
Proteus mirabilis
08/18/23 11:25 Bronch Left Lower Lobe Gram Stain - Final
08/18/23 11:25 Urine Urine Culture - Preliminary
Escherichia coli
08/17/23 21:23 Blood/Venous Blood Culture - Preliminary
No Growth in 48 hours- Final report to follow
08/17/23 22:00 Blood/Venous Blood Culture - Preliminary
Coagulase neg. staphylococcus
Additional testing on request
08/17/23 22:00 Blood/Venous Gram Stain - Preliminary
08/18/23 06:21 Nose MRSA Screen - Final
No Methicillin Resistant Staphylococcus aureus isolated.
CT chest:
1. Occluded left main stem bronchus, presumably secondary to mucous plugging, with complete atelectasis of the left lung and left-sided volume loss. Small to moderate-sized left-sided pleural effusion.
2. Small to moderate right pleural effusion with adjacent compressive atelectasis. Nonspecific scattered interstitial opacities within the aerated portions of the right lung.
3. Moderate cardiomegaly with pericardial effusion.
Echo: EF 60-65%. No RWMA. Mild concentric left ventricular hypertrophy. Normal diastolic function. Normal right ventricular size and function. Normal atria. Mild tricuspid regurgitation. Estimated pulmonary artery pressure of 37 mmHg assuming a
right atrial pressure of 3 mmHg. Small pericardial effusion without evidence of hemodynamic compromise. When compared to prior study on 03/22/2022, there is no significant change.
Renal U/S:
1. SEVERE BILATERAL RENAL DISEASE (left greater than right) which appears to have increased since 11/11/2021.
2. 4.8 mm nonobstructing left intrarenal calculus.
3. No sonographic evidence for hydronephrosis.
Assessment:
Acute on chronic hypercapnic/hypoxemic respiratory failure:
-due to near opacification of the left hemithorax likely secondary to mucous plugging/atelectasis versus large left pleural effusion/pneumonia
-h/o chronic hypercapnic/hypoxemic respiratory failure secondary to COVID in 2019 on baseline 0.5 L trach collar during the day, ventilator at nighttime
-Chest x-ray shows progressive near complete opacification throughout the left hemithorax.
-ABG on admission showed hypercarbia/hypoxemic respiratory failure pCO2 52, pH 7.24, pO2 59
-BiPAP/PSV, currently on 3L TC
-CT chest above
-s/p emergency bronchoscopy 08/18/23AM. No large mucous plug bilaterally. Lingula had significant secretions and BAL was performed.
-cont Mucomyst/duonebs
-pulm following
-BAL Cx with proteus, UCx with E coli (question if actually UTI)
-completed Unasyn 7 day course
CHINTAN
Hypernatremia
-continue IVF per Nephrology
-holding ACEi
-renal U/S above
-Cr has not improved; this may represent CKD4
-SPEP/UPEP pending
-complete 24 hour urine collection then [facility]
-sodium bicarb added
-may need biopsy eventually but high risk due to Trach collar
- OP F/u JACKY
Anemia of chronic disease and Fe deficiency:
-s/p 2U pRBCs and hb 9.7
-Continue iron supplement
Other problems:
Hypernatremia: free water intake encouraged. improved with Hypotonic IVF which are now stopped
DM2: cont Lantus/SSI/accuchecks
Hx of small to moderate pericardial effusion
Essential hypertension: cont Norvasc as 10mg/doxazosin. stop lisinopril.
Hyperlipidemia: Continue statin
Coronary artery disease status post angioplasty: cont ASA/BB
h/o C. diff
Ambulatory dysfunction wheelchair-bound since June 2019
Spinal stenosis
and daughter updated at bedside.
RUE Swelling
- US: No evidence for deep venous thrombosis of the right upper extremity.
FULL/heparin
More than 30 minutes spent in discharge including
Final examination of the patient
Summarizing hospital stay
Instructions for continuing care to all relevant caregivers
Preparation of discharge records, prescriptions, and referral forms
Total time spent (in minutes): 44
Anticipated Discharge: Today
Subjective/Interval History
-
Date of Service: August 25, 2023
denies any new complaints
for DC later today
Objective Data
-
Labs:
Laboratory Results
08/25/23
05:03
WBC 5.8
Hgb 9.0 L
Hct 28.0 L
Plt Count 179
Sodium 142
Potassium 3.7
Chloride 117 H
Carbon Dioxide 18 L
BUN 32 H
Creatinine 2.6 H
Glucose 104 H
Calcium 8.3 L
Vital Signs:
Vital Signs
Temp Pulse Resp BP Pulse Ox
98.8 F 89 31 154/60 96
08/25/23 07:18 08/25/23 10:00 08/25/23 10:00 08/25/23 10:00 08/25/23 10:00
I&O
08/24/23 08/25/23 08/26/23
06:59 06:59 06:59
Intake Total 440 / 440 300 / 300 390 / 390
Output Total 500 / 500
Balance -60 / -60 300 / 300 390 / 390
Physical Exam
-
General: No Apparent Distress
HEENT: Normocephalic and Atraumatic
Respiratory: Negative Wheezes
Cardiac: Regular Rhythm and S1/S2
GI: Soft
Neuro: AO x 3
Psych: Calm
Data Reviewed
-
Total Time Spent with Patient (in minutes): 44
Labs: Labs Reviewed by me
--- NOTE | 2023-08-25 11:13 | W.DS.TRANS ---
DC Summary - Manager Proposal
-
Discharge Instructions:
Discharge Diagnosis/Procedures Acute hypoxia, pneumonia with Proteus -
completed antibiotics. CKD stage 4, anemia
requiring 2 units
Diet Regular
Activity As tolerated
Blood Work repeat BMP in 1 week - script given
Other Services VN
Instructions:
Stand-Alone Forms:
Changes to Home Medications: Yes
Discharge Medications:
DC Medications w/original date entered in [facility]
acetaminophen 500 mg tablet (Tylenol Extra Strength) 1,000 mg (2 x 500 mg) PO Q6HPRN PRN mild pain/ temp>100.5 F 08/20/20
insulin lispro 100 unit/mL subcutaneous pen (Humalog KwikPen (U-100) Insulin) 0 sliding scale dose SC ACHS Diabetes 09/10/20
ferrous gluconate 324 mg (37.5 mg iron) tablet 324 mg PO BID Supplement 11/27/21
metformin 500 mg tablet,extended release 24 hr 1,000 mg PO BID@0800,1700 Diabetes 11/27/21
metoprolol tartrate 25 mg tablet 50 mg PO BID Blood pressure 01/10/22
loratadine 10 mg tablet (Allergy Relief (loratadine)) 10 mg PO DAILY PRN allergy symptoms 01/30/22
atorvastatin 20 mg tablet 20 mg PO QPM High cholesterol #30 tabs 02/01/22
doxazosin 1 mg tablet 1 mg PO HS Blood pressure #30 tabs 02/01/22
cholecalciferol (vitamin D3) 25 mcg (1,000 unit) tablet 25 mcg PO DAILY Supplement 03/22/22
cyanocobalamin (vitamin B-12) 1,000 mcg tablet 1,000 mcg PO DAILY Supplement 03/22/22
aspirin 81 mg tablet,delayed release 81 mg PO DAILY #30 tabs 05/18/22
ipratropium 0.5 mg-albuterol 3 mg (2.5 mg base)/3 mL nebulization soln 3 ml inhalation R TID 08/17/23
pantoprazole 40 mg tablet,delayed release 40 mg PO DAILY PRN gi issues 08/17/23
tirzepatide 7.5 mg/0.5 mL subcutaneous pen injector (Mounjaro) 7.5 mg SC TANG Diabetes 08/17/23
amlodipine 10 mg tablet (Norvasc) 10 mg PO DAILY #30 tabs 08/25/23
guaifenesin 600 mg tablet, extended release 12 hr 600 mg PO Q12 #60 tabs 08/25/23
insulin detemir U-100 100 unit/mL (3 mL) subcutaneous pen (Levemir FlexPen) 5 unit (0.05 mL) SC HS #0 mL 08/25/23
sodium bicarbonate 650 mg tablet 650 mg feeding tube BID #60 tabs 08/25/23
Home Medication Changes
Jd stopped and Norvasc increased
Na bicarb added
Pending Results: No
Total time spent discharging patient (in min): 42
[2023-08-25 11:40] LABS: Glucose - Point of Care 118 mg/dl (70-99)
--- NOTE | 2023-08-25 12:13 | W.PN.NEPH.PH ---
Today's Communication / Plan
-
for d/c today
BMP next week
Assessment/Plan
-
IMP:
Acute on chronic hypercapnic/hypoxemic respiratory failure
-h/o chronic hypercapnic/hypoxemic respiratory failure secondary to COVID in 2019 on baseline 0.5 L trach collar during the day, ventilator at nighttime
CHINTAN
Anemia of chronic disease
mild hypernatremia
bilat pleural effusion
IDDM2
Hx of small to moderate pericardial effusion
Essential hypertension
Hyperlipidemia
Coronary artery disease status post angioplasty
h/o C. diff
Ambulatory dysfunction wheelchair-bound since June 2019
Spinal stenosis
h/o K stone
Hypoalbuminemia
Plan:
relatively stable renal function cr 2.6
non oliguric, 24hr urine shows 1.9gm of protein
LILIAN 1:160, other serologies and paraprotein w/u neg, UA UTI sample
renal US no hydro non obst renal caliculi,but with severe cortical thinning, mild nephromegaly too - which might indicate D nephropathy
likely benefit from K biopsy but given her resp status on trach is difficult to do-recommend to seek Nephro eval at [place] but family thinks transport is main issue
Family will call our office if they decided to f/u with us
cont bicarb 650mg BID
BMP next week
PCP at [place] f/u
d/w primary
-
-
Date of Service: August 25, 2023
CC / HPI / ROS
-
Chief Complaint:
CHINTAN
History of Present Illness:
CHINTAN/Cr stable at 2.6
Na normal
K low 3.7
met acidosis stable at 18
Review of Systems:
awake at baseline per family
offers no sob
no fever
Labs
-
Labs:
WBC 5.8 10^3/uL (4.8-10.8) 08/25/23 05:03
RBC 3.13 10^6/uL (4.20-5.40) L 08/25/23 05:03
Hgb 9.0 g/dL (12.0-16.0) L 08/25/23 05:03
Hct 28.0 % (37.0-47.0) L 08/25/23 05:03
Plt Count 179 10^3/uL (130-400) 08/25/23 05:03
Sodium 142 mmol/L (135-145) 08/25/23 05:03
Potassium 3.7 mmol/L (3.5-5.1) 08/25/23 05:03
Chloride 117 mmol/L (98-107) H 08/25/23 05:03
Carbon Dioxide 18 mmol/L (22-30) L 08/25/23 05:03
BUN 32 mg/dl (7-17) H 08/25/23 05:03
Creatinine 2.6 mg/dL (0.6-1.0) H 08/25/23 05:03
eGFR 19.99 08/25/23 05:03
Glucose 104 mg/dl (70-99) H 08/25/23 05:03
Calcium 8.3 mg/dl (8.4-10.2) L 08/25/23 05:03
Gyo-Y-Xdsuxmznnoi Pept 31233 pg/ml 08/18/23 05:25
Albumin 2.6 g/dl (3.5-5.0) L 08/18/23 05:25
Physical Exam
-
Vital Signs:
Vital Signs
Temp Pulse Resp BP Pulse Ox
98.8 F 89 31 154/60 96
08/25/23 07:18 08/25/23 10:00 08/25/23 10:00 08/25/23 10:00 08/25/23 10:00
Cardiovascular:: Regular rate and rhythm
Respiratory:: Bilateral: Coarse
Lung Excursion:: Abnormal
Abdomen:: Nontender and Soft
Extremity Edema:: None: Bilateral:
Bond Catheter: No
--- NOTE | 2023-08-25 12:34 | VNURNOTE ---
[facility] referral completed in [facility] after review of chart.
[facility] inside sales supervisor contacted Liaison, unable to accept patient with ventilator, even during hs.
CM was updated on referral status -declined by [facility].
--- NOTE | 2023-08-25 15:32 | PTCARENOTE ---
Assumed care of pt this morning after am rounds. Pt is alert, mouths words while on CPAP via vent and then trach collar. She answers simple questions appropriately. Lungs coarse, occasional need for suction of thin clear liquids. The patients's
and pt's daughter manage vent/trach at home. He reports they have all the equipment and have been managing. He wishes for help from home care but is denied due to ventilator. He will be retiring in approx 1 month. Pt admitted to hospital
with sacral wound. Pt's aware of importance of caring for this, visualized wound this and knows to pressure relief, cleanse and keep foam intact. reports wound has been a challenge for 'years'. Pt denies pain, tolerates p.o.
diet as she is fed by the family. No signs of aspiration during feeds. Complete care provided to pt today. Discharge to home. Transport via ambulance stretcher and report given to crew. Pt placed on traveler trach set up and discharged.
accompanying team out of hospital
--- NOTE | 2023-08-25 15:39 | PTCARENOTE ---
discharge nstructions reviewed with patient's who has been able to read back and verbalize understanding of plan of care
== END 2023-08-25 15:17 | disposition home health service (06) | DRG 208 ==
LOC: IMU 23:25
PROVIDERS: Internal Medicine; Internal Medicine Critical Care Medicine; Nurse Practitioner; Nurse Practitioner Family; Specialist; ADMITTING PHYSICIAN Hospitalist; ATTENDING PHYSICIAN Internal Medicine; CONSULT PHYSICIAN Internal Medicine Critical Care Medicine; CONSULT PHYSICIAN Internal Medicine Infectious Disease; CONSULT PHYSICIAN Specialist; EMERGENCY PHYSICIAN Emergency Medicine; FAMILY PHYSICIAN Nurse Practitioner Family
PROC: 0B9J8ZX Drainage of Left Lower Lung Lobe, Via Natural or Artificial Opening Endoscopic, Diagnostic (ICD-10-PCS; 2023-08-18)
PROC: 5A1935Z Respiratory Ventilation, Less than 24 Consecutive Hours (ICD-10-PCS; 2023-08-18)
DX: J15.69 Pneumonia due to other Gram-negative bacteria (principal); J96.21 Acute and chronic respiratory failure with hypoxia; J96.22 Acute and chronic respiratory failure with hypercapnia; E87.0 Hyperosmolality and hypernatremia; E87.4 Mixed disorder of acid-base balance; J98.11 Atelectasis; J90 Pleural effusion, not elsewhere classified; N17.9 Acute kidney failure, unspecified; N39.0 Urinary tract infection, site not specified; N18.4 Chronic kidney disease, stage 4 (severe); B96.20 Unspecified Escherichia coli [E. coli] as the cause of diseases classified elsewhere; R26.2 Difficulty in walking, not elsewhere classified; I12.9 Hypertensive chronic kidney disease with stage 1 through stage 4 chronic kidney disease, or unspecified chronic kidney disease; I25.10 Atherosclerotic heart disease of native coronary artery without angina pectoris; Z93.0 Tracheostomy status; Z99.3 Dependence on wheelchair; Z86.16 Personal history of COVID-19
CPT/HCPCS: 31624; 36600; 71045; 71250; 76775; 80048; 80053; 80202; 81003; 81015; 81050; 82306; 82570; 82607; 82728; 82746; 82805; 82962; 83036; 83516; 83521; 83540; 83550; 83605; 83880; 84155; 84156; 84165; 85025; 85027; 86038; 86039; 86160; 86335; 86850; 86900; 86901; 86920; 87040; 87070; 87077; 87086; 87150; 87186; 87205; 92523; 92526; 92610; 93005; 93306; 93971; 94002; 94003; 94640; 94669; 96360; 99285; P9016

== ENCOUNTER 2023-08-31 18:58 | Inpatient (IN) | payer BC, MEDICARE, SELFPAY ==
[2023-08-31] VITALS (14 sets, daily range): BP systolic 107–156; BP diastolic 54–103; BMI 32.5; BMI 24.2
[2023-08-31 14:48] LABS: % Basophils 0.3 % (0-2); % Eosinophils 0.1 % (0-6); % Immature Granulocytes 1.4 % (0-0.5); % Lymphocytes 5.3 % (20.5-51.1); % Monocytes 3.4 % (1.7-9.3); % Neutrophils 89.5 % (42.2-75.2); Absolute Immature Granulocytes 0.1 10^3/uL (0-0.05); Absolute Lymphocytes 0.5 10^3/uL (1.2-3.4); Absolute Monocytes 0.3 10^3/uL (0.1-0.6); Absolute Neutrophils 8.9 10^3/uL (1.4-6.5); Hematocrit 31.5 % (37.0-47.0); Hemoglobin 9.5 g/dL (12.0-16.0); Mean Corp Hgb Conc. 30.2 g/dL (33.0-37.0); Mean Corpuscular Hgb 28.6 pg (27.0-31.0); Mean Corpuscular Volume 94.9 fL (81.0-99.0); Mean Platelet Volume 10.9 fL (7.4-10.4); Nucleated Red Blood Cells % 0 %; Platelet Count 226 10^3/uL (130-400); Red Blood Cell Count 3.32 10^6/uL (4.20-5.40); White Blood Cell Count 9.9 10^3/uL (4.8-10.8)
[2023-08-31 14:53] LABS: Urine Albumin 3+ (Neg - Trace); Urine Bilirubin Negative (Negative); Urine Character Very Cloudy (Clear); Urine Color Yellow; Urine Glucose Trace (Negative); Urine Ketone Negative (Negative); Urine Leukocyte 2+ (Negative); Urine Nitrite Negative (Negative); Urine Occult Blood 2+ (Negative); Urine Urobilinogen Negative (Neg - 1+)
--- NOTE | 2023-08-31 14:53 | ED.GENMED ---
History of Present Illness
<Earnestine Parikh DO - Last Filed: 08/31/23 20:48>
General
Chief Complaint: Breathing Problem
Time Seen by Provider: 08/31/23 14:23
Travel History
Have you had any contact with someone who has COVID-19?: Unable to Answer
Do you have any symptoms of coronavirus? Fever > 100 degrees, chills, cough, shortness of breath, sore throat, loss of taste or smell, muscle aches, or headache?: Unable to Answer
History of Present Illness
History of Present Illness:
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
responsiveness. Patient presents from home. Per medics and daughter, has had increased lethargy in the past 2 days decreased p.o. intake. She has not wanted to eat anything, has been sleeping more. Daughter is also had to put her on the vent
intermittently throughout the day. Patient is usually able to communicate, make her needs known, has been less communicative. On review of EMR, similar presentation in 08/16, found to have mucous plugging and hypercapnic respiratory failure.
Per medics, and route, patient was initially on 15 L, however desatted to 80s, bagged with improvement of saturations. On arrival, patient notes that she does feel tired and weak, however denies difficulty breathing, chest pain, abdominal pain. No
additional history obtained, daughter reportedly and route to hospital
Past History
<Earnestine Parikh DO - Last Filed: 08/31/23 20:48>
Past History
ED Past Medical History: CAD, HTN, Hypercholesterolemia, IDDM, [facility] and Other (COVID-19 infection June 2019 requiring ECMO while at [facility], hospitalization lasting 8 months. O2 dependent, severe deconditioning/wheelchair-bound)
ED Past Surgical History: Cardiac (Cardiac catheterization), Cholecystectomy, , Orthopedic (Laminectomy) and Other (Gallbladder stent and removal)
Patient has exhibited threatening behavior?: No
PSI?: No
Social History
Tobacco: Non-smoker
Alcohol: None
Drug: None
Personal:
Living: with family
Employment: Retired
Family History
Family History: Other (reviewed and noncontributory)
Phy Exam
<Earnestine Parikh DO - Last Filed: 08/31/23 20:48>
Physical Exam
Physical Exam:
GENERAL: Alert , in no apparent distress
EYE: pupils equal and reactive
NECK: Supple, no significant adenopathy.
ENT: Trach in place
CARDIAC: Regular rate and rhythm .
LUNGS: Mild tachypnea with rhonchorous breath sounds bilaterally
ABDOMEN: Soft, without focal tenderness, no r/g, no cvat
NEUROLOGICAL: Alert and oriented, no focal neuro deficits
SKIN: Warm and dry, skin intact.
MUSCULOSKELETAL: Mild edema to lower extremity
PSYCH: Normal and appropriate interaction.
Scores
<Earnestine Parikh DO - Last Filed: 08/31/23 20:48>
Heart Failure Risk
Heart Failure Risk Score: Not Applicable
Course
<Earnestine Parikh DO - Last Filed: 08/31/23 20:48>
Orders/Labs/Results
Orders:
Orders
08/31/23 14:23
Electrocardiogram (*1) Urgent
Reason for Study: Chest Pain
EKG- Treatment ONCE
08/31/23 14:31
Cardiac Monitoring- Treatment ONCE
Straight cath- Treatment ONCE
08/31/23 14:32
CR Chest Portable - 1 View Urgent
Comment:
Reason For Exam: sepsis
Reason Study Needs to be Portable: Patient Unstable
08/31/23 14:39
Complete Blood Count/With Diff Urgent
PTT Urgent
Prothrombin Time Urgent
Troponin I Q8H
Urinalysis Reflex To Culture Urgent
Date Specimen was Collected: 08/31/23
Time Specimen was Collected: 14:35
Urine Microscopic Reflex Cult Urgent
Blood Culture Q30M
MIKKI Source: Blood/Venous
Specimen Description:
Blood Culture Q30M
MIKKI Source: Blood/Venous
Specimen Description:
Urine Culture Urgent
MIKKI Source: U
Specimen Description:
Date Specimen was Collected: 08/31/23
Time Specimen was Collected: 14:35
08/31/23 14:41
Lactic Acid Q4H
Comment: CANCEL 2nd LACTIC ACID IF 1st LACTIC ACID IS LESS THAN 2
08/31/23 14:49
Arterial Blood Gas Urgent
%Oxygen/Room Air: 100
08/31/23 17:05
Cefepime HCl [Maxipime] 2,000 mg IV NOW STA
08/31/23 17:07
0.9% Sodium Chloride 250 ml [Nss] 250 ml IV BOLUS
08/31/23 17:49
Vancomycin [Vancocin] 1,500 mg 0.9% Sodium Chloride [Nss] 20 ml 0.9% Sodium Chloride 250 ml [Nss] 250 ml IV NOW
08/31/23 18:11
PULMONARY CONSULT Routine
Consulting Provider: Aydin Palomino
Was physician already notified: Yes
Reason for consult: Acute on chronic hypoxemic and hypercapnic respiratory failure
08/31/23 18:21
Admit/Transfer Patient As Directed
Co-Sign Provider:
Level of Care: Inpatient admission
Assign to:: IMU- Intermediate Care
Physician / Group: Lissy
Diagnosis: Acute on chronic hypoxemic and hypercapnic respiratory failure
Reason for Hospitalization: Acute on chronic hypoxemic and hypercapnic respiratory failure
Expected length of stay greater than two midnights?: Yes
ELOS- Estimated Length of Stay in days: 4
I certify the patient meets the requirements for IP care: Yes
08/31/23 18:25
Code Status As Directed
Resuscitation Status: Full Code
08/31/23 18:45
Lactic Acid Q4H
Comment: CANCEL 2nd LACTIC ACID IF 1st LACTIC ACID IS LESS THAN 2
08/31/23 20:18
Comprehensive Metabolic Panel Urgent
Procalcitonin Urgent
08/31/23 22:45
Troponin I Q8H
Abnormal Lab Results
08/31/23 08/31/23
14:39 14:49
RBC 3.32 L 10^6/uL
(4.20-5.40)
Hgb 9.5 L g/dL
(12.0-16.0)
Hct 31.5 L %
(37.0-47.0)
MCHC 30.2 L g/dL
(33.0-37.0)
RDW 15.0 H %
(11.5-14.5)
MPV 10.9 H fL
(7.4-10.4)
Abs Immat Gran (auto) 0.1 H 10^3/uL
(0-0.05)
Absolute Neuts (auto) 8.9 H 10^3/uL
(1.4-6.5)
Absolute Lymphs (auto) 0.5 L 10^3/uL
(1.2-3.4)
Immature Gran % 1.4 H %
(0-0.5)
Neutrophils % 89.5 H %
(42.2-75.2)
Lymphocytes % 5.3 L %
(20.5-51.1)
APTT 37.5 H Sec
(23.4-35.0)
pH 7.24 L
(7.35-7.45)
pCO2 54 H mmHg
(32-35)
pO2 206 H mmHg
(83-108)
ABG O2 Sat (Measured) 99.8 H %
(94-98)
Ur Occult Blood Reflex 2+ A
(Negative)
Leukocyte Esterase Rfl 2+ A
(Negative)
Urine Bacteria (Reflex) Few A
(Negative)
Urine Glucose Trace A
(Negative)
Urine Albumin (Reflex) 3+ A
(Neg - Trace)
08/31/23 14:39
08/31/23 14:39
Vital Signs
Initial and Last Documented VS:
Initial Vital Signs
Pulse Resp BP Pulse Ox
95 18 107/78 100
08/31/23 14:23 08/31/23 14:23 08/31/23 14:23 08/31/23 14:23
Last Documented Vital Signs
Temp Pulse Resp BP Pulse Ox
98.8 F 87 15 144/73 96
08/31/23 14:33 08/31/23 20:15 08/31/23 20:15 08/31/23 20:00 08/31/23 20:15
<Shlomo Schwarz MD - Last Filed: 08/31/23 20:02>
Orders/Labs/Results
Orders:
Orders
08/31/23 14:23
Electrocardiogram (*1) Urgent
Reason for Study: Chest Pain
EKG- Treatment ONCE
08/31/23 14:31
Cardiac Monitoring- Treatment ONCE
Straight cath- Treatment ONCE
08/31/23 14:32
CR Chest Portable - 1 View Urgent
Comment:
Reason For Exam: sepsis
Reason Study Needs to be Portable: Patient Unstable
08/31/23 14:39
Complete Blood Count/With Diff Urgent
PTT Urgent
Prothrombin Time Urgent
Troponin I Q8H
Urinalysis Reflex To Culture Urgent
Date Specimen was Collected: 08/31/23
Time Specimen was Collected: 14:35
Urine Microscopic Reflex Cult Urgent
Blood Culture Q30M
MIKKI Source: Blood/Venous
Specimen Description:
Blood Culture Q30M
MIKKI Source: Blood/Venous
Specimen Description:
Urine Culture Urgent
MIKKI Source: U
Specimen Description:
Date Specimen was Collected: 08/31/23
Time Specimen was Collected: 14:35
08/31/23 14:41
Lactic Acid Q4H
Comment: CANCEL 2nd LACTIC ACID IF 1st LACTIC ACID IS LESS THAN 2
08/31/23 14:49
Arterial Blood Gas Urgent
%Oxygen/Room Air: 100
08/31/23 17:05
Cefepime HCl [Maxipime] 2,000 mg IV NOW STA
08/31/23 17:07
0.9% Sodium Chloride 250 ml [Nss] 250 ml IV BOLUS
08/31/23 17:49
Vancomycin [Vancocin] 1,500 mg 0.9% Sodium Chloride [Nss] 20 ml 0.9% Sodium Chloride 250 ml [Nss] 250 ml IV NOW
08/31/23 18:11
PULMONARY CONSULT Routine
Consulting Provider: Aydin Palomino
Was physician already notified: Yes
Reason for consult: Acute on chronic hypoxemic and hypercapnic respiratory failure
08/31/23 18:21
Admit/Transfer Patient As Directed
Co-Sign Provider:
Level of Care: Inpatient admission
Assign to:: IMU- Intermediate Care
Physician / Group: Lissy
Diagnosis: Acute on chronic hypoxemic and hypercapnic respiratory failure
Reason for Hospitalization: Acute on chronic hypoxemic and hypercapnic respiratory failure
Expected length of stay greater than two midnights?: Yes
ELOS- Estimated Length of Stay in days: 4
I certify the patient meets the requirements for IP care: Yes
08/31/23 18:25
Code Status As Directed
Resuscitation Status: Full Code
08/31/23 18:45
Lactic Acid Q4H
Comment: CANCEL 2nd LACTIC ACID IF 1st LACTIC ACID IS LESS THAN 2
08/31/23 20:18
Comprehensive Metabolic Panel Urgent
Procalcitonin Urgent
08/31/23 22:45
Troponin I Q8H
Abnormal Lab Results
08/31/23 08/31/23
14:39 14:49
RBC 3.32 L 10^6/uL
(4.20-5.40)
Hgb 9.5 L g/dL
(12.0-16.0)
Hct 31.5 L %
(37.0-47.0)
MCHC 30.2 L g/dL
(33.0-37.0)
RDW 15.0 H %
(11.5-14.5)
MPV 10.9 H fL
(7.4-10.4)
Abs Immat Gran (auto) 0.1 H 10^3/uL
(0-0.05)
Absolute Neuts (auto) 8.9 H 10^3/uL
(1.4-6.5)
Absolute Lymphs (auto) 0.5 L 10^3/uL
(1.2-3.4)
Immature Gran % 1.4 H %
(0-0.5)
Neutrophils % 89.5 H %
(42.2-75.2)
Lymphocytes % 5.3 L %
(20.5-51.1)
APTT 37.5 H Sec
(23.4-35.0)
pH 7.24 L
(7.35-7.45)
pCO2 54 H mmHg
(32-35)
pO2 206 H mmHg
(83-108)
ABG O2 Sat (Measured) 99.8 H %
(94-98)
Ur Occult Blood Reflex 2+ A
(Negative)
Leukocyte Esterase Rfl 2+ A
(Negative)
Urine Bacteria (Reflex) Few A
(Negative)
Urine Glucose Trace A
(Negative)
Urine Albumin (Reflex) 3+ A
(Neg - Trace)
08/31/23 14:39
08/31/23 14:39
Vital Signs
Initial and Last Documented VS:
Initial Vital Signs
Pulse Resp BP Pulse Ox
95 18 107/78 100
08/31/23 14:23 08/31/23 14:23 08/31/23 14:23 08/31/23 14:23
Last Documented Vital Signs
Temp Pulse Resp BP Pulse Ox
98.8 F 87 15 144/73 96
08/31/23 14:33 08/31/23 20:15 08/31/23 20:15 08/31/23 20:00 08/31/23 20:15
Procedures
<Earnestine Parikh DO - Last Filed: 08/31/23 20:48>
Central Line
Left Femoral:
Indication for procedure:: no IV access
Procedure completed by: Andi Upton DO, MD
Consent form signed: Yes
Anesthesia: 1% Lidocaine
Central line lumen: triple (16)
Number of attempts: 3
Central line complications: other (unsuccessful R-fem from anatomy, clotting at R-IJ)
Sterile dressing applied?: Yes
<Shlomo Schwarz MD - Last Filed: 08/31/23 20:02>
Central Line
Left Femoral:
Procedure completed by: Shlomo Upton DO, MD
<Earnestine Parikh DO - Last Filed: 08/31/23 20:48>
MDM/Problems Addressed
MDM/Problems Addressed:
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
responsiveness, decreased p.o. intake, increased oxygen requirements. Vital signs on arrival are normal, however on ventilator.
On exam, patient in no acute distress, however respiratory at bedside, placed on ventilator. Patient is suction, thick secretions obtained. Saturation stable. In the setting of desaturation prior to arrival with thick secretions, concern for
possible respiratory infection. On review of EMR, recent hospital admission on 08/16 at which time she had a bronc, absence of mucous plugging, however did have a BAL that grew positive Proteus, status post treatment with Unasyn. Will initiate
septic workup with laboratory analysis, cultures. Holding IV fluids with history of CHF. Will obtain a lactic acid. Will maintain on ventilator. Will also check urinalysis. Will continue closely monitor. Lower suspicion for central neurologic
process, mentating normally, answering questions appropriately.
16:30 -delay in disposition secondary to IV access. IV team had difficulty placing midline and then patient was refusing additional attempts. Lactic acid within normal limits and blood pressure remained stable without concern for severe sepsis or
septic shock. No leukocytosis. Pending CMP. And chest x-ray imaging. Patient now agreeable. Pending chest x-ray imaging.
17:00 - X-ray does show possible pleural effusion versus pneumonia. Once IV access obtained, will plan for antibiotics and admission. Will also start gentle IV fluids, possible pleural effusion on x-ray. Patient is also diffusely edematous with
concern for volume overload state. Again no concern for severe sepsis or septic shock, without indication for 30 cc/kg fluid bolus
17:40 -unsuccessful additional attempts. In discussion with daughter, plan for central venous access. Will place femoral. Consent obtained by daughter. Will admit to hospital service.
19:50 -multiple attempts made for central venous access, with ultimate final success with left femoral. Will administer antibiotics. Patient requiring repeated suctioning, otherwise remained stable throughout procedure.
<Earnestine Parikh DO - Last Filed: 08/31/23 20:48>
*Critical Care Note
Total Time (30-74mins, 75-104mins- exclusive of procedures): 90 minutes
comment:
Critical care statement: A total of 90 minutes of critical care time was provided for this patient. This includes management of unstable vital signs, evaluation of the patient at bedside, reviewing the patient's pertinent medical records, discussion
with consultants, review of old EKGs and review of pertinent medical records, procedure for central venous access. This time with separate from time utilized to perform the aforementioned documented procedures
ED Attending Note
<Earnestine Parikh DO - Last Filed: 08/31/23 20:48>
-
Portions of this chart may have been created with voice recognition software.� Occasional wrong word or��sound alike� substitutions may have occurred due to the inherent limitations of voice recognition software.
Discharge Plan
Departure
Patient Disposition: Admit
Date of Disposition: 08/31/23
Time of Disposition: 17:54
Admit to: Med/Surg
Admit to doctor: Lissy
Presentation/result/management discussed w/ accepting MD/DO: Hospitalist
Discharge Problem:
Hospital acquired PNA, Lethargy
Interventions
Interventions:
*Risk Screen - Suicide Last Done: 08/31/23 14:23
*General Assessment Last Done: 08/31/23 14:23
*Neglect/Abuse Screening Last Done: 08/31/23 14:23
ED- Fall Risk Assessment Last Done: 08/31/23 17:44
ED- Cardiac Assessment Last Done: 08/31/23 14:48
ED- Pulmonary Assessment Last Done: 08/31/23 14:48
[2023-08-31 15:01] LABS: INR 1.02; PT 13.4 Sec (11.4-14.6)
[2023-08-31 15:02] LABS: APTT 37.5 Sec (23.4-35.0)
[2023-08-31 15:07] LABS: B.E. -4.3 mmol/L; HCO3 23.1 mmol/L (21-28); O2 Saturation % 99.8 % (94-98); PCO2 54 mmHg (32-35); PO2 206 mmHg (83-108); pH 7.24 (7.35-7.45)
[2023-08-31 15:18] LABS: Lactic Acid 0.8 mmol/L (0.7-2.0)
[2023-08-31 15:23] LABS: Urine Mucus Many
[2023-08-31 15:24] LABS: Urine Amorphous Seen
[2023-08-31 15:27] LABS: Urine Red Blood Cell 0-2 /HPF (0-2)
[2023-08-31 15:28] LABS: Troponin I 0.028 ng/ml; Urine Bacteria Few (Negative)
--- NOTE | 2023-08-31 16:17 | VATNOTE ---
Requested by ER to place midline due to inability to place PIV and obtain labs. Multiple attempts made in left arm to place midline; unable to thread wire fully in any vessel. During final attempt, patient became agitated and grabbing at equipment
and refusing any further attempts. DIRECTOR OF CODING in to assist, but patient states she is refusing any further IV attempts at this time. DIRECTOR OF CODING to alert VAT if patient becomes cooperative.
--- NOTE | 2023-08-31 17:52 | HPS.HSE ---
Family Physician
-
Family Physician: SATINDER Watkins
Chief Complaint
-
Decreased responsiveness
History of Present Illness
62 y/o F with PMHx:
Chronic hypoxemic/hypercapnic respiratory failure (trach collar during the day, assist-control mechanical ventilation at night)
Anemia of chronic disease and iron deficiency
Hypernatremia
DM2
h/o zoien-sw-tufegpue pericardial effusion
Essential hypertension
Hyperlipidemia
Coronary artery disease s/p angioplasty
h/o Clostridium difficile.
Ambulatory dysfunction, wheelchair-bound since June 2019.
Spinal stenosis
who p/w CC shortness of breath. The patient was recently discharged from [facility] August 25, 2023 after being admitted August 17, 2023 with similar symptoms. At that time the concern was for mucous plugging but she had emergent bronchoscopy
on August 18, 2023 in the morning that did not show any large mucous plugs bilaterally. Today the patient had decreased responsiveness. Medics were called to her house. She had had increased lethargy for the past 2 days with decreased oral intake.
She had been on the ventilator during daytime. She also been communicating less. As per the medics the patient was initially on 15 L but desaturated to the 80s. She had to be bagged and her saturations did improve. Currently the patient
complains of fatigue and weakness but no other specific complaints. Case discussed with the ER attending.
Medical History
Past Medical History
Past Medical History: Reports Other (as per HPI)
Past Surgical History: Reports Other (N/A)
Social History
Tobacco: Non-smoker
Alcohol: None
Drug: None
Family History
Family History: Not pertinent
Allergies / Home Medications
Allergies reflects when Allergies were last updated in [facility].
Home Medications with original date entered in [facility]
Allergy/Medication List:
Allergies
Allergy/AdvReac Type Severity Reaction Status Date / Time
clarithromycin Allergy TACHYCARDIA Verified 08/31/23 14:28
Home Medications
acetaminophen 500 mg tablet (Tylenol Extra Strength) 1,000 mg (2 x 500 mg) PO Q6HPRN PRN mild pain/ temp>100.5 F 08/20/20
insulin lispro 100 unit/mL subcutaneous pen (Humalog KwikPen (U-100) Insulin) 0 sliding scale dose SC ACHS Diabetes 09/10/20
ferrous gluconate 324 mg (37.5 mg iron) tablet 324 mg PO BID Supplement 11/27/21
metformin 500 mg tablet,extended release 24 hr 1,000 mg PO BID@0800,1700 Diabetes 11/27/21
metoprolol tartrate 25 mg tablet 50 mg PO BID Blood pressure 01/10/22
loratadine 10 mg tablet (Allergy Relief (loratadine)) 10 mg PO DAILY PRN allergy symptoms 01/30/22
atorvastatin 20 mg tablet 20 mg PO QPM High cholesterol #30 tabs 02/01/22
doxazosin 1 mg tablet 1 mg PO HS Blood pressure #30 tabs 02/01/22
cholecalciferol (vitamin D3) 25 mcg (1,000 unit) tablet 25 mcg PO DAILY Supplement 03/22/22
cyanocobalamin (vitamin B-12) 1,000 mcg tablet 1,000 mcg PO DAILY Supplement 03/22/22
ipratropium 0.5 mg-albuterol 3 mg (2.5 mg base)/3 mL nebulization soln 3 ml inhalation R TID Lung/Breathing Issues 08/17/23
pantoprazole 40 mg tablet,delayed release 40 mg PO DAILYPRN PRN gi issues 08/17/23
tirzepatide 7.5 mg/0.5 mL subcutaneous pen injector (Mounjaro) 7.5 mg SC TANG Diabetes 08/17/23
amlodipine 10 mg tablet (Norvasc) 10 mg PO DAILY Blood Pressure 08/31/23
aspirin 81 mg tablet,delayed release 81 mg PO DAILY Blood Clot Prevention/Tx 08/31/23
guaifenesin 600 mg tablet, extended release 12 hr 600 mg PO Q12 Congestion 08/31/23
insulin detemir U-100 100 unit/mL (3 mL) subcutaneous pen (Levemir FlexPen) 10 unit SC HS Diabetes 08/31/23
sodium bicarbonate 650 mg tablet 650 mg PO BID Kidney Disease 08/31/23
Review of Systems
-
History Source: Patient
A 12 point ROS was completed and negative except as noted: Yes
Physical Exam
Vital Signs
Vital Signs
Temp Pulse Resp BP Pulse Ox
98.8 F 82 16 132/71 96
08/31/23 14:33 08/31/23 17:30 08/31/23 17:30 08/31/23 16:30 08/31/23 17:44
Physical Exam
General: Other (.)
Laboratory Results
-
08/31/23 14:39
Laboratory Results
PT 13.4 Sec (11.4-14.6) 08/31/23 14:39
INR 1.02 08/31/23 14:39
APTT 37.5 Sec (23.4-35.0) H 08/31/23 14:39
pH 7.24 (7.35-7.45) L 08/31/23 14:49
pCO2 54 mmHg (32-35) H 08/31/23 14:49
pO2 206 mmHg (83-108) H 08/31/23 14:49
HCO3 23.1 mmol/L (21-28) 08/31/23 14:49
Lactic Acid 0.8 mmol/L (0.7-2.0) 08/31/23 14:41
Total Bilirubin Cancelled 08/31/23 14:39
AST Cancelled 08/31/23 14:39
ALT Cancelled 08/31/23 14:39
Alkaline Phosphatase Cancelled 08/31/23 14:39
Troponin I 0.028 ng/ml 08/31/23 14:39
Impression/Plan
-
Gen: NAD, Awake and alert, appears chronically ill
Eyes: EOMI, PERRLA, no scleral icterus.
Neck: supple.
CV: RRR, +S1/S2, no m/r/g.
Resp: CTAB, no rales, wheezes, or rhonchi.
Abd: +BS, soft, NT, ND
Skin: No rashes.
Neuro: CN 2-12 intact, non-focal.
Psych: Normal mood and affect.
CXR:
1). Mild parenchymal airspace disease at the right lung base may be atelectasis or interstitial pneumonia
2). Confluent pleural parenchymal airspace disease and retrocardiac left lung base is consistent with left-sided pleural effusion with underlying left lower lobe atelectasis
Acute on chronic hypercapnic/hypoxemic respiratory failure:
-With acute respiratory acidosis
-Doubt acute infection at this time (no leukocytosis, afebrile)
-pt given Vanco/Cefepime in the ER, will continue for now but will have a low threshold for discontinuing antibiotics in the near future
-suspect pt may have mucous plug
-Consult pulmonary
-Leave on assist-control mechanical ventilation at this time (450/14/5/40%)
-follow BCxs
Anemia of chronic disease and Fe deficiency: Hb stable, was transfused last admission
DM2: cont Lantus/SSI/accuchecks
Hx of small to moderate pericardial effusion
Essential hypertension: cont Norvasc/doxazosin.
Hyperlipidemia: Continue statin
Coronary artery disease status post angioplasty: cont ASA/BB
h/o C. diff
Ambulatory dysfunction wheelchair-bound since June 2019
Spinal stenosis
FULL/Heparin
[2023-08-31] MEDS: MAXIPIME 2000 MG IV (20:08)
[2023-08-31] MEDS: VANCOCIN 300 ML IV (20:12)
[2023-08-31] MEDS: NSS 250 IV (20:12)
[2023-08-31] MEDS: VANCOCIN 300 MG IV (20:12)
[2023-08-31 20:41] LABS: ALT (SGPT) < 10 U/L (0-35); AST (SGOT) 14 U/L (14-36); Albumin 2.5 g/dl (3.5-5.0); Alkaline Phosphatase 63 U/L (38-126); Blood Urea Nitrogen 40 mg/dl (7-17); Calcium 8.2 mg/dl (8.4-10.2); Carbon Dioxide 22 mmol/L (22-30); Chloride 117 mmol/L (98-107); Estimated Creatinine Clearance 17 ml/min; Glucose 126 mg/dl (70-99); Sodium 142 mmol/L (135-145); Total Bilirubin 0.5 mg/dl (0.2-1.3); Total Protein 5.3 g/dl (6.3-8.2); eGFR 19.99
[2023-08-31 20:55] LABS: Procalcitonin 0.07 ng/ml (0.0-0.25)
[2023-08-31] MEDS: MUCINEX 600 MG PO (21:59)
[2023-08-31] MEDS: LANTUS 0.1 UNITS SC (21:59)
[2023-08-31] MEDS: SODIUM BICARBONATE 650 MG PO (21:59)
[2023-08-31] MEDS: 0.45%NACL 1000 IV (21:59)
[2023-08-31] MEDS: CARDURA 1 MG PO (21:59)
[2023-08-31] MEDS: LOPRESSOR 50 MG PO (21:59)
[2023-08-31] MEDS: TYLENOL 1000 MG PO (22:04)
[2023-08-31 22:14] LABS: Glucose - Point of Care 118 mg/dl (70-99)
[2023-08-31] MEDS: DUONEB 3 ML INH (23:02)
[2023-08-31] MEDS: HEPARIN 5000 UNITS SC (23:17)
[2023-09-01] VITALS (16 sets, daily range): BP systolic 126–153; BP diastolic 50–82; BMI 24.7
[2023-09-01 03:54] LABS: % Basophils 0.1 % (0-2); % Eosinophils 0.6 % (0-6); % Immature Granulocytes 0.4 % (0-0.5); % Monocytes 3.9 % (1.7-9.3); Absolute Lymphocytes 0.7 10^3/uL (1.2-3.4); Absolute Monocytes 0.3 10^3/uL (0.1-0.6); Absolute Neutrophils 5.7 10^3/uL (1.4-6.5); Hematocrit 21.3 % (37.0-47.0); Mean Corp Hgb Conc. 31.5 g/dL (33.0-37.0); Mean Corpuscular Hgb 28.5 pg (27.0-31.0); Mean Corpuscular Volume 90.6 fL (81.0-99.0); Nucleated Red Blood Cells % 0 %; Platelet Count 171 10^3/uL (130-400); Red Blood Cell Count 2.35 10^6/uL (4.20-5.40); Red Cell Dist. Width 14.7 % (11.5-14.5); White Blood Cell Count 6.7 10^3/uL (4.8-10.8)
[2023-09-01 04:00] LABS: Hemoglobin 6.7 g/dL (12.0-16.0)
[2023-09-01 04:19] LABS: Blood Urea Nitrogen 39 mg/dl (7-17); Calcium 7.9 mg/dl (8.4-10.2); Carbon Dioxide 22 mmol/L (22-30); Chloride 118 mmol/L (98-107); Estimated Creatinine Clearance 20 ml/min; Glucose 101 mg/dl (70-99); Potassium 3.7 mmol/L (3.5-5.1); Sodium 144 mmol/L (135-145); eGFR 20.95
--- NOTE | 2023-09-01 05:10 | W.PN.UPDATE ---
Update Note
Progress Note Update
Obtained blood consent via phone call to patients daughterMartina. Call and consent witnessed by floor RN. Consent form signed and placed in chart.
Morning Hgb 6.8/Hct 21.3, down from Hgb 9.5/Hct 31.5. Order placed for 1 unit PRBCs.
--- NOTE | 2023-09-01 05:29 | PTCARENOTE ---
Received patient from the ED overnight on vent a/c. See vent checks. Patient confused overnight and hard to understand when she mouths words at this time. Clipboard given to attempt communication and unsuccessful. AM hgb 6.7- rn call center provider made
aware and ordered one unit PRBCs. Consent witnessed and placed in chart.
[2023-09-01] MEDS: NOVOLOG FLEXPEN-LOW RESISTANCE SC ×3 (06:10→18:00)
[2023-09-01 06:16] LABS: Glucose - Point of Care 102 mg/dl (70-99)
--- NOTE | 2023-09-01 06:46 | W.PN.HOSP.TC ---
Today's Communication/Plan
-
see bold and plan
Assessment / Plan
Assessment / Plan
Gen: remains NAD, Awake and alert, appears chronically ill
Eyes: EOMI, PERRLA, no scleral icterus.
Neck: supple.
CV: remains RRR, +S1/S2, no m/r/g.
Resp: CTAB anteriorly, no rales, wheezes, or rhonchi.
Abd: +BS, soft, NT, ND
Skin: No rashes.
Neuro: CN 2-12 intact, non-focal.
Psych: Normal mood and affect.
CXR:
1). Mild parenchymal airspace disease at the right lung base may be atelectasis or interstitial pneumonia
2). Confluent pleural parenchymal airspace disease and retrocardiac left lung base is consistent with left-sided pleural effusion with underlying left lower lobe atelectasis
Acute on chronic hypercapnic/hypoxemic respiratory failure:
-With acute respiratory acidosis
-Doubt acute infection at this time (no leukocytosis, one fever of 100.4F which could be inflammatory)
-pt given Vanco/Cefepime in the ER, will continue for now but will have a low threshold for discontinuing antibiotics in the near future
-suspect pt may have had a mucous plug
-Consult pulmonary
-Leave on assist-control mechanical ventilation until seen by pulm (450/14/5/40%)
-follow BCxs
Anemia of chronic disease and Fe deficiency:
-Hb 6.7, transfuse 1U pRBCs
Other problems:
Acute metabolic encephalopathy
CKD4, Cr at baseline
DM2: cont Lantus/SSI/accuchecks
Hx of small to moderate pericardial effusion
Essential hypertension: cont Norvasc/doxazosin.
Hyperlipidemia: Continue statin
Coronary artery disease status post angioplasty: cont ASA/BB
h/o C. diff
Ambulatory dysfunction wheelchair-bound since June 2019
Spinal stenosis
Overall poor prognosis.
FULL/Heparin
Anticipated Discharge: Within 24 hours
Subjective/Interval History
-
Date of Service: September 01, 2023
Denies chest pain or shortness of breath. Nursing reports the patient's been confused overnight.
Objective Data
-
Labs:
Laboratory Results
08/31/23 09/01/23
20:18 03:39
WBC 6.7
Hgb 6.7 L* D
Hct 21.3 L
Plt Count 171 D
Sodium 142 144
Potassium 4.0 3.7
Chloride 117 H 118 H
Carbon Dioxide 22 22
BUN 40 H 39 H
Creatinine 2.6 H 2.5 H
Glucose 126 H 101 H
Calcium 8.2 L 7.9 L
Total Bilirubin 0.5
AST 14
ALT < 10
Alkaline Phosphatase 63
Vital Signs:
Vital Signs
Temp Pulse Resp BP Pulse Ox
98.4 F 74 14 149/51 100
09/01/23 04:14 09/01/23 06:00 09/01/23 06:00 09/01/23 06:00 09/01/23 06:00
I&O
08/30/23 08/31/23 09/01/23
06:59 06:59 06:59
Intake Total 960 / 960
Balance 960 / 960
[2023-09-01] MEDS: DUONEB 3 ML INH ×3 (07:48→19:50)
[2023-09-01] MEDS: VITAMIN B-12 1000 MCG PO (09:01)
[2023-09-01] MEDS: ASPIR LOW (ENTERIC COATED) 81 MG PO (09:02)
[2023-09-01] MEDS: LOPRESSOR 50 MG PO ×2 (09:02→21:22)
[2023-09-01] MEDS: HEPARIN 5000 UNITS SC ×2 (09:03→17:39)
[2023-09-01] MEDS: MUCINEX 600 MG PO ×2 (09:03→21:23)
[2023-09-01] MEDS: VITAMIN D3 (cholecalciferol) 25 MCG PO (09:04)
[2023-09-01] MEDS: FEOSOL 325 MG PO (09:04)
[2023-09-01] MEDS: NORVASC 10 MG PO (09:04)
[2023-09-01] MEDS: MAXIPIME 1000 MG IV ×2 (09:04→21:21)
[2023-09-01] MEDS: SODIUM BICARBONATE 650 MG PO ×2 (09:04→21:23)
[2023-09-01] MEDS: STERILE WATER FOR INJECTION 10 ML IV ×2 (09:05→21:22)
--- NOTE | 2023-09-01 09:05 | WOUNDNOTE ---
[facility] RN note: Patient admitted with acute on chronic hypoxemia. Patient lives at home with her and children. Her stated she has a hospital bed with a memory foam mattress. He stated she is turned q 2 hrs at home. She is not current
with VN. plans to retire soon.
See H&P for complete history.
PMH: trach collar during the day, controlled mechanical ventilator at night, DM, anemia, HTN, CAD, angioplasty, C diff, WC bound, recent admission 08/16-08/25/23, spinal stenosis.
Wound Location and type/assessment: Patient admitted with: deep dermal stage 2 and stage 3 sacral/buttocks pressure injuries. L ischial deep dermal stage 2 pressure injuries. Blanchable mild red R heel. MASD abdominal folds, perineum.
Appetite: decreased recently.
Pressure redistribution devices in place: Centrella Max air bed. Foam turning wedge.
Plan: Patient incontinent of soft dark brown stool. Lupe care given. Purwick changed. Dressing changed on sacral/buttocks and L ischium. Patient turned to R semi side lying position with help from [facility] RN student Shamika. Heels off bed with air chair
cushion. t/c SPD and ordered a bariatric air chair cushion which can be used under sacral/buttocks for more cushioning while in bed. Discussed with LINDA Moss.
Will confirm orders with Dr. Yuan.
Care plan to be updated and will follow as needed.
Note to case management requested for discharge: VN if goes home.
--- NOTE | 2023-09-01 09:07 | PHA.VAN.IN ---
Addendum entered and electronically signed by Trudy Simpson Nayan 09/01/23 15:30:
BUN & SCR ordered per protocol
Original Note:
Assessment
- Assessment
Renal Function: Appears similar to baseline
Concomitant Antimicrobials: cefepime
- Previous Dosing Experience
Previous Regimen: dosing by random level - received single dose of 1500mg
Date of Regimen: 08/19/23
Patient's weight is: Elevated compared to previous dosing experience (SCR 2.5 vs ~2.1)
Laboratory Tests
08/19/23 08/20/23
05:39 03:42
Random Vancomycin 16.5 14.3
Patient had 2 random levels following 1500mg loading dose during previous admission
ke= 0.0065
half-life = 106.8H
Plan
- Plan
Initial / Loading Dose: 1500mg - 08/30 20:12
Maintenance Regimen: dosing by level - hold off on dosing today
Monitoring: random 09/01 06
Based on prior experience, anticipate patient to have prolonged half-life and to maintain levels through today
Pharmacokinetics Vancomycin I
- -
Patient Age: 62
Patient Sex: Female
Vancomycin Day #: 1
Indication: Pulmonary/Respiratory
Requesting Provider: Dr. Yuan
Pertinent Antimicrobial Allergies:
clarithromycin - tachycardia
Height / Weight:
Height 5 ft 5 in
Actual Weight 67.4 kg
Pertinent Past Medical History: CKD 4, DM2
- Vital Signs / Lab Results
Temp Pulse Resp BP Pulse Ox
99 F 78 14 144/54 100
09/01/23 08:57 09/01/23 09:04 09/01/23 08:57 09/01/23 09:04 09/01/23 08:57
Lab Results - Hematology
08/31/23 09/01/23
14:39 03:39
WBC 9.9 6.7
Lab Results - Chemistry
08/31/23 08/31/23 09/01/23
14:39 20:18 03:39
BUN Cancelled 40 H 39 H
Creatinine Cancelled 2.6 H 2.5 H
Estimated Creat Clear Cancelled 17 20
Albumin Cancelled 2.5 L
08/31/23 08/31/23
14:41 18:45
Lactic Acid 0.8 Cancelled
Lab Results - Urine
08/31/23
14:39
Urine Nitrite (Reflex) Negative
Leukocyte Esterase Rfl 2+ A
Urine WBC (Reflex) 3-5
Ur Squamous Epith Cells 11-15
Urine Bacteria (Reflex) Few A
--- NOTE | 2023-09-01 09:25 | CON.PUL ---
Consultation
Consultation Request
Date/Time Consultation Requested: 09/01/23
Date/Time Consultation Performed: 09/01/23
Performing Provider: Giorgio
Reason for Consultation: Acute hypoxic RF
Medical History
-
History of Present Illness:
Patient is a 62 year old F with history of chronic hypoxic/hypercarbic resp failure s/p trach, post COVID illness, who p/w CC shortness of breath. The patient was recently discharged from 08/25/23 for mucus plugging. Family states that on day of
admission, the patient had decreased responsiveness. Medics were called to her house. She had had increasing lethargy for the past 2 days with decreased oral intake. Family states that she is placed on Trilogy at night but trach collar through
the day. She has been sleeping more and less conversive. They have noticed her exhaled TV on Trilogy reporting on avg <200cc nightly. Her baseline settings are TV 350/PS8/40%/5+. They are not sure how her settings were changed.
Per medics, the patient was initially on 15 L but desaturated to the 80s. She had to be bagged and her saturations did improve. She is placed on vent in ER and saturations are now improved.
CXR appears similar to prior.
Past Medical History
Past Medical History: Other (see list below)
Social History
Tobacco: Non-smoker
Alcohol: None
Drug: None
Allergies / Home Medications
Allergies
Allergy/AdvReac Type Severity Reaction Status Date / Time
clarithromycin Allergy TACHYCARDIA Verified 08/31/23 14:28
Home Medications
�Medication �Instructions �Recorded �Confirmed �Last Taken �Type
acetaminophen 500 mg tablet 1,000 mg (2 x 500 mg) PO Q6HPRN 08/20/20 08/31/23 Unknown Rx
(Tylenol Extra Strength) PRN mild pain/ temp>100.5 F
insulin lispro 100 unit/mL 0 sliding scale dose SC ACHS 09/10/20 08/31/23 08/30/23 History
subcutaneous pen (Humalog KwikPen Diabetes
(U-100) Insulin)
ferrous gluconate 324 mg (37.5 mg 324 mg PO BID Supplement 11/27/21 08/31/23 08/30/23 History
iron) tablet
metformin 500 mg tablet,extended 1,000 mg PO BID@0800,1700 Diabetes 11/27/21 08/31/23 08/17/23 History
release 24 hr
metoprolol tartrate 25 mg tablet 50 mg PO BID Blood pressure 01/10/22 08/31/23 08/30/23 History
loratadine 10 mg tablet (Allergy 10 mg PO DAILY PRN allergy symptoms 01/30/22 08/31/23 Unknown History
Relief (loratadine))
atorvastatin 20 mg tablet 20 mg PO QPM High cholesterol #30 02/01/22 08/31/23 08/30/23 Rx
tabs
doxazosin 1 mg tablet 1 mg PO HS Blood pressure #30 tabs 02/01/22 08/31/23 08/30/23 Rx
cholecalciferol (vitamin D3) 25 25 mcg PO DAILY Supplement 03/22/22 08/31/23 08/30/23 History
mcg (1,000 unit) tablet
cyanocobalamin (vitamin B-12) 1,000 mcg PO DAILY Supplement 03/22/22 08/31/23 08/30/23 History
1,000 mcg tablet
ipratropium 0.5 mg-albuterol 3 mg 3 ml inhalation R TID 08/17/23 08/31/23 08/17/23 History
(2.5 mg base)/3 mL nebulization Lung/Breathing Issues
soln
pantoprazole 40 mg tablet,delayed 40 mg PO DAILYPRN PRN gi issues 08/17/23 08/31/23 08/30/23 History
release
tirzepatide 7.5 mg/0.5 mL 7.5 mg SC TANG Diabetes 08/17/23 08/31/23 08/27/23 History
subcutaneous pen injector
(Mounjaro)
amlodipine 10 mg tablet (Norvasc) 10 mg PO DAILY Blood Pressure 08/31/23 08/31/23 08/30/23 History
aspirin 81 mg tablet,delayed 81 mg PO DAILY Blood Clot 08/31/23 08/31/23 08/30/23 History
release Prevention/Tx
guaifenesin 600 mg tablet, 600 mg PO Q12 Congestion 08/31/23 08/31/23 08/30/23 History
extended release 12 hr
insulin detemir U-100 100 unit/mL 10 unit SC HS Diabetes 08/31/23 08/31/23 08/30/23 History
(3 mL) subcutaneous pen (Levemir
FlexPen)
sodium bicarbonate 650 mg tablet 650 mg PO BID Kidney Disease 08/31/23 08/31/23 08/30/23 History
Review of Systems
-
History Source: Patient and Family
All other systems: Negative unless noted
Vitals / Labs / Diagnostic Testing
Vital Signs
Temp Pulse Resp BP Pulse Ox
98.7 F 79 16 143/58 100
09/01/23 09:13 09/01/23 09:13 09/01/23 09:13 09/01/23 09:13 09/01/23 09:13
Lab Data
09/01/23 03:39
09/01/23 03:39
Laboratory Results
08/31/23 08/31/23
14:39 14:49
PT 13.4
INR 1.02
APTT 37.5 H
pH 7.24 L
pCO2 54 H
pO2 206 H
HCO3 23.1
O2 Delivery Level
Diagnostic Testing:
Physical Exam
-
HEENT: Normocephalic, Anicteric, Moist Mucous Membranes and Tracheotomy
Cardiovascular: S1/S2 and Regular Rhythm
Respiratory: Rhonchi and Non-Labored Respirations
GI: Soft, Non Distended and Non Tender
Neurology: Awake, Alert, Oriented and Other (nonverbal, mouths)
Skin: Warm, Dry and Good Color
General: Comfortable and Other (chronically ill appearing)
Assessment
-
Patient is a 62 year old F with history of chronic hypoxic/hypercarbic resp failure s/p trach, post COVID illness, who p/w CC shortness of breath. The patient was recently discharged from 08/25/23 for mucus plugging. Family states that on day of
admission, the patient had decreased responsiveness. She is placed on Trilogy at night/trach collar through the day. She has been sleeping more and less conversive. They have noticed her exhaled TV on Trilogy reporting on avg <200cc nightly. Her
baseline settings are TV 350/PS8/40%/5+. Per medics, the patient was initially on 15 L but desaturated to the 80s. She had to be bagged and her saturations did improve. She is placed on vent in ER and saturations are now improved. CXR appears
similar to prior. We are consulted for eval 09/01/23.
Hypoxemic and hypercapnic respiratory failure due to mucous plug/left lung atelectasis
ABG 08/17/2023--52/59/7 0.24
Mucous plug/left lung atelectasis
Status post emergent bronchoscopy at the bedside 08/18/2023-mucous plugs removed from the left
Pneumonia
Left pleural effusion
CHINTAN
Wfpnpn-lkqufmueme-lyrqostysa 7.0
Hypocalcemia
Hypernatremia
Metabolic and respiratory acidosis
Conditions present prior to admission:
Chronic hypercapnic/hypoxemic respiratory failure/chronic tracheostomy/nocturnal ventilation.
Severe Covid/ECMO 2019.
Diabetes.
Hypertension.
CAD/angioplasty 2020.
Recurrent UTI.
Ambulatory dysfunction/wheelchair-bound.
Chronic anemia.
Overweight.
Renal calculi.
Laparoscopic cholecystectomy 07/2020. Bilateral ureteroscopy with lithotripsy of the right renal stone and clearing of left renal pelvic fungal ball. Laminectomy. .
Plan
Presenting with increasing lethargy following recent hospitalization
Discharged from on 08/25/23 after emergent bronchoscopy performed 08/18/2023 with some mucous plugs removed
ABG on presentation: 7.24 -54 -206 prior ABG 7.2 -55, 7.13 -68
Family notes she has been on vent during the day
Repeat CXR 08/30 with similar appearance
Most recent download report from [facility] 08/16/23 showing usage 9.3 avg hours - MV 5.7 L/min - RR 23 - IPAP/EPAP 12.6/4.9 cm water - Avg VTe 249.1 - leak 32.5 L/min
Settings: Mode S, IPAP 13 EPAP 5
In the last few weeks, has noticed decline in TV to <200 on avg nightly
Not sure how settings were changed as she should have been on AC-equivalent TV 350/PS 8/40%/PEEP 5 per last office note
Resolved while on vent here
We will look into why mode was changed with [employer]
Continue nocturnal mechanical ventilation.
Continue with Mucomyst and nebulizers as needed/airway clearance
Continue with mucolytic's
CPAP/pressure support and trach collar weans--however if she continues to have issue with hypercapnea and mucus, she may need Trilogy use 10/10
Aspiration precautions
Routine tracheostomy tube care continues
Follow renal function
I/Os, daily weights
DVT prophylaxis-on heparin
Early mobilization/bedside range of motion-baseline wheelchair-bound and ambulatory dysfunction
The patient was last seen in the pulmonary office by Kalpana Mobley NP 06/01/2023 and has an appointment 09/07/2023 at 10:30 AM
Can eval for discharge planning once Trilogy issue resolved
Diagnostic Data:
CXR 04-27, reviewed, L basilar atelectasis
CXR 04-19, resolved total L atelectasis, currently back to chronic L basilar atelectasis. New tracheostomy
CXR 04-16, portable, L basilar atelectasis
CXR 04/11/22- 1. Complete opacification of the left hemithorax, likely on the basis of a large pleural effusion and compressive atelectasis upon the left lung. Mild right basilar pneumonia suspected
Chest x-ray 08/17/2023-near complete opacification throughout the left Jovanni thorax
Echocardiogram 01/10/22-EF 60-65%, no significant valvular disease, small pericardial effusion
Echocardiogram 03/22/22: Normal left ventricular chamber size. Normal left ventricular systolic�function. Normal regional wall motion. Normal left ventricular wall thickness.�Left ventricular ejection fraction is 60-65%. Mild tricuspid
regurgitation.�Small to moderate pericardial effusion without evidence of hemodynamic�compromise.�Compared to the previous echo Dec 2021, there is no significant change.
CT CHEST 04/11/22- �A moderate to large left pleural effusion and complete collapse/atelectasis of the left lung account for the left hemithorax opacification on the prior chest radiograph. Findings are in part likely secondary to mucous plugging
given the presence of opacification of the left mainstem bronchus and left upper and lower lobe bronchi, patchy opacifications right middle and lower lobe suspicious for pneumonia, moderate right pleural effusion and ill-defined sclerotic lesion
T12, osseous metastasis not completely excluded
CT CHEST 03/22/22 - There is no CT evidence for pulmonary embolism. No aortic dissection.There are extremely large bilateral pleural effusions right greater than left and associated bilateral consolidation most prominent in the left lower
lobe.Cardiomegaly. Increased pericardial effusion.
CT chest 08/17/2023-occluded left mainstem bronchus presumably mucous plugs with complete atelectasis left lung moderate size left pleural effusion, small to moderate right pleural effusion
VSE 04/28/22: No aspiration. Laryngeal penetration with cough with thin liquids by cup.
Spirometry 09/09/21-FEV1 790 mL-36%, FVC 790 mL 27%. Some difficulties with maneuver and thus may offer unreliability. Severe restriction.�������
PFT 02/08/22-FVC 1.01/30%, FEV1 0.70/35%, ratio 69%, unable to perform lung volumes and diffusing capacity.
--- NOTE | 2023-09-01 09:37 | CM ---
Addendum entered by Kari Veronica RN 09/01/23 10:30:
Message from [place] [facility] Nurse; she is recommending an air overlay or air mattress for her hospital bed if that's possible. She has a memory foam on her hospital bed now. She has multiple stage 2 and a stage 3 sacral/buttocks pressure injuries.
Informed her that CM spoke with daughter who wants to go online and order one, as she is aware that it would not be covered by insurance and there are concerns about cost.
Addendum entered by Kari Veronica RN 09/01/23 09:57:
Noting wound care needs - seen by wound care nurse.
Original Note:
Patient with Hx Chronic hypoxemic/hypercapnic respiratory failure (trach collar daytime, assist-control mechanical ventilation at night), Ambulatory dysfunction - w/c bound with Dx Acute on chronic hypercapnic/hypoxemic respiratory failure, anemia.
Spoke with daughter Martina; the patient has been drowsy, lethargic, not eating and not drinking the past few days.
Home setup and services unchanged since recent discharge.
The patient resides with her and daughter in a 1 story house with ramp access.
She uses hospital bed and mechanical lift for mobility and requires total care by her , with daughter assisting.
DME - ventilator, Trilogy, trach supplies, suction supplies, ace lift, w/c, home O2 through [facility]
No VN in place because 4 agencies declined her on last admission as they do not take ventilator patients.
Patient not eligible for caregiver services through the Waiver program as works and they are over income to qualify.
PCP - Arnulfo Del Valle per chart
Pharmacy - [facility] per chart
Daughter expressed concern that the tidal volume on her home vent had been 200 but recently is only 150-160, and she is hoping to speak with knitting machine operator about this ---> message sent to Dr Alvares, who responded saying the vent should be set to 350,
we would have to review download on her device.
No CM d/c needs identified.
Plan home by ambulance when medically ready.
[2023-09-01] MEDS: 0.45%NACL 1000 IV (11:52)
[2023-09-01 11:58] LABS: Glucose - Point of Care 97 mg/dl (70-99)
--- NOTE | 2023-09-01 16:24 | PTCARENOTE ---
Rec'd pt this AM. Remained on A/C Vent througout the day. 1 unit PRBC given. Pt comfortable at this time. VS stable. spouse at bedside.
[2023-09-01] MEDS: LIPITOR 20 MG PO (17:39)
[2023-09-01 17:59] LABS: Glucose - Point of Care 103 mg/dl (70-99)
[2023-09-01] MEDS: DESENEX/MITRAZOL/ZEASORB 1 APPLIC TOPICAL (21:21)
[2023-09-01] MEDS: CARDURA 1 MG PO (21:23)
[2023-09-02] VITALS (14 sets, daily range): BP systolic 120–164; BP diastolic 50–81; BMI 25.4
[2023-09-02] MEDS: 0.45%NACL 1000 IV ×2 (00:08→17:51)
[2023-09-02] MEDS: HEPARIN 5000 UNITS SC ×4 (00:08→23:03)
[2023-09-02] MEDS: NOVOLOG FLEXPEN-LOW RESISTANCE SC ×4 (00:18→17:25)
[2023-09-02 00:26] LABS: Glucose - Point of Care 110 mg/dl (70-99)
[2023-09-02 04:19] LABS: Blood Urea Nitrogen 37 mg/dl (7-17); Estimated Creatinine Clearance 20 ml/min
[2023-09-02 04:23] LABS: Vancomycin Random 16.5 ug/ml
--- NOTE | 2023-09-02 05:33 | PTCARENOTE ---
Pt resting comfortably on A/C ventilator. Pt required suction several times with thick, hansen/white secretions from trach. Turned with foam wedge and pillows per protocol. Pt able to mouth words and nods head appropriately. Frequent rounding performed.
[2023-09-02 06:40] LABS: Glucose - Point of Care 87 mg/dl (70-99)
[2023-09-02] MEDS: DUONEB 3 ML INH ×3 (07:49→19:51)
--- NOTE | 2023-09-02 08:04 | PHA.VAN.FU ---
Vancomycin Assessment / Plan
- Assessment
Renal Function: Stable
WBC's are: WNL
In the past 24 hrs, patient has been: Afebrile
Concomitant Antimicrobials: CEFEPIME
- Assessment - Therapeutic Drug Monitoring
Random Level: 16.5
- Dosing Plan
Dosing by Level: Hold off on dosing today
- Monitoring Plan
Random Level: 09/02 IN AM
- Follow Up
Pharmacy will continue to follow.
Vancomycin Follow UP
- -
Patient Age: 62
Patient Sex: Female
Vancomycin Day #: 2
Indication: Pulmonary/Respiratory
Requesting Provider: Dr. Yuan
Pertinent Antimicrobial Allergies:
clarithromycin - tachycardia
Height / Weight:
Height 5 ft 5 in
Actual Weight 69.2 kg
Pertinent Past Medical History: CKD 4, DM2
- Vital Signs / Lab Results
Temp Pulse Resp BP Pulse Ox
98.3 F 76 18 129/79 100
09/02/23 07:57 09/02/23 08:00 09/02/23 08:00 09/02/23 08:00 09/02/23 08:00
Lab Results - Hematology
08/31/23 09/01/23
14:39 03:39
WBC 9.9 6.7
Lab Results - Chemistry
08/31/23 08/31/23 09/01/23
14:39 20:18 03:39
BUN Cancelled 40 H 39 H
Creatinine Cancelled 2.6 H 2.5 H
Estimated Creat Clear Cancelled 17 20
Albumin Cancelled 2.5 L
09/02/23
03:22
BUN 37 H
Creatinine 2.5 H
Estimated Creat Clear 20
Albumin
08/31/23 08/31/23
14:41 18:45
Lactic Acid 0.8 Cancelled
Microbiology Results
08/31/23 14:39 Blood Culture - Preliminary
Blood/Venous No Growth in 24 hours- Final report to follow
08/31/23 14:39 Blood Culture - Preliminary
Blood/Venous No Growth in 24 hours- Final report to follow
08/31/23 14:39 Urine Culture - Final
Urine No Significant Growth
Therapeutic Drug Monitoring
Random Vancomycin 16.5 ug/ml 09/02/23 03:22
[2023-09-02] MEDS: LANTUS SC ×2 (08:23→22:50)
[2023-09-02] MEDS: ASPIR LOW (ENTERIC COATED) 81 MG PO (08:24)
[2023-09-02] MEDS: FEOSOL 325 MG PO (08:24)
[2023-09-02] MEDS: SODIUM BICARBONATE 650 MG PO ×2 (08:25→19:52)
[2023-09-02] MEDS: NORVASC 10 MG PO (08:25)
[2023-09-02] MEDS: VITAMIN D3 (cholecalciferol) 25 MCG PO (08:25)
[2023-09-02] MEDS: LOPRESSOR 50 MG PO ×2 (08:26→19:51)
[2023-09-02] MEDS: MUCINEX 600 MG PO ×2 (08:26→19:51)
[2023-09-02] MEDS: VITAMIN B-12 1000 MCG PO (08:26)
[2023-09-02] MEDS: MAXIPIME 1000 MG IV ×2 (08:26→19:52)
[2023-09-02] MEDS: DESENEX/MITRAZOL/ZEASORB 1 APPLIC TOPICAL ×2 (08:27→20:00)
[2023-09-02] MEDS: STERILE WATER FOR INJECTION 10 ML IV ×2 (08:27→19:52)
--- NOTE | 2023-09-02 09:11 | PTCARENOTE ---
pt given po meds whole with water while on ventilator; assist control. no cough or other issues swallowing. pox remains 99% with peak inspiratory pressures 27-32. awaiting speech eval. continuing to monitor
--- NOTE | 2023-09-02 10:32 | W.PN.HOSP.TC ---
Today's Communication/Plan
-
see bold
Assessment / Plan
Assessment / Plan
Gen: continues to remain NAD, Awake and alert, appears chronically ill
Eyes: EOMI, PERRLA, no scleral icterus.
Neck: supple.
CV: continues to remain RRR, +S1/S2, no m/r/g.
Resp: CTAB anteriorly, no rales, wheezes, or rhonchi.
Abd: +BS, soft, NT, ND
Skin: No rashes.
Neuro: remains CN 2-12 intact, non-focal.
Psych: Normal mood and affect.
09/01/23 03:39 Nose MRSA Screen - Final
No Methicillin Resistant Staphylococcus aureus isolated.
08/31/23 14:39 Blood/Venous Blood Culture - Preliminary
Positive culture in progress
08/31/23 14:39 Blood/Venous Gram Stain - Preliminary
08/31/23 14:39 Blood/Venous Blood Culture - Preliminary
No Growth in 24 hours- Final report to follow
08/31/23 14:39 Urine Urine Culture - Final
No Significant Growth
CXR:
1). Mild parenchymal airspace disease at the right lung base may be atelectasis or interstitial pneumonia
2). Confluent pleural parenchymal airspace disease and retrocardiac left lung base is consistent with left-sided pleural effusion with underlying left lower lobe atelectasis
Acute on chronic hypercapnic/hypoxemic respiratory failure:
-With acute respiratory acidosis
-Doubt acute infection at this time (no leukocytosis, one fever of 100.4F which could be inflammatory)
-pt given Vanco/Cefepime in the ER, has been on Vanco/Cefepime. Stop Vanco today with NEG MRSA screen. Follow BCx with prelim gram variable bacilli.
-Recently the patient's tidal volume has decreased to an average of less than 200cc nightly (will be rectified with [employer]). May need Trilogy use 10/10.
-pulmonary following
-Leave on assist-control mechanical ventilation until seen by pulm (450/14/5/40%)
Anemia of chronic disease and Fe deficiency:
-check Hb s/p 1U pRBCs on 09/01/23
Other problems:
Acute metabolic encephalopathy
CKD4, Cr at baseline
DM2: cont Lantus/SSI/accuchecks
Hx of small to moderate pericardial effusion
Essential hypertension: cont Norvasc/doxazosin.
Hyperlipidemia: Continue statin
Coronary artery disease status post angioplasty: cont ASA/BB
h/o C. diff
Ambulatory dysfunction wheelchair-bound since June 2019
Spinal stenosis
Overall poor prognosis.
Family updated at bedside.
Discussed with pulm.
FULL/Heparin
Anticipated Discharge: 24 - 48 hours
Subjective/Interval History
-
Date of Service: September 02, 2023
No new complaints.
Objective Data
-
Labs:
Laboratory Results
09/02/23
03:22
BUN 37 H
Creatinine 2.5 H
Vital Signs:
Vital Signs
Temp Pulse Resp BP Pulse Ox
98.3 F 76 18 129/79 99
09/02/23 07:57 09/02/23 08:00 09/02/23 08:00 09/02/23 08:00 09/02/23 09:14
I&O
09/01/23 09/02/23 09/03/23
06:59 06:59 06:59
Intake Total 960 / 960 2200 / 2200
Output Total 350 / 350 600 / 600
Balance 960 / 960 1850 / 1850 -600 / -600
[2023-09-02 12:38] LABS: Glucose - Point of Care 147 mg/dl (70-99)
--- NOTE | 2023-09-02 13:31 | W.PN.PUL3 ---
Today's Communication / Plan
-
Will consider discontinuation of antibiotics in 24 hours if all cultures negative
Pressure support ventilation during the day and mechanical ventilation at night while in the hospital.
Will touch base with [employer] on Monday regarding ventilator settings.
Assessment
-
Patient is a 62 year old F with history of chronic hypoxic/hypercarbic resp failure s/p trach, post COVID illness, who p/w CC shortness of breath. The patient was recently discharged from 08/25/23 for mucus plugging. Family states that on day of
admission, the patient had decreased responsiveness. She is placed on Trilogy at night/trach collar through the day. She has been sleeping more and less conversive. They have noticed her exhaled TV on Trilogy reporting on avg <200cc nightly. Her
baseline settings are TV 350/PS8/40%/5+. Per medics, the patient was initially on 15 L but desaturated to the 80s. She had to be bagged and her saturations did improve. She is placed on vent in ER and saturations are now improved. CXR appears
similar to prior. We are consulted for eval 09/01/23.
Hypoxemic and hypercapnic respiratory failure due to mucous plug/left lung atelectasis
ABG 08/17/2023--52/59/7 0.24
Mucous plug/left lung atelectasis
Status post emergent bronchoscopy at the bedside 08/18/2023-mucous plugs removed from the left
Pneumonia
Left pleural effusion
CHINTAN
[id number]-[id number] 7.0
Hypocalcemia
Hypernatremia
Metabolic and respiratory acidosis
Conditions present prior to admission:
Chronic hypercapnic/hypoxemic respiratory failure/chronic tracheostomy/nocturnal ventilation.
Severe Covid/ECMO 2019.
Diabetes.
Hypertension.
CAD/angioplasty 2020.
Recurrent UTI.
Ambulatory dysfunction/wheelchair-bound.
Chronic anemia.
Overweight.
Renal calculi.
Laparoscopic cholecystectomy 07/2020. Bilateral ureteroscopy with lithotripsy of the right renal stone and clearing of left renal pelvic fungal ball. Laminectomy. .
Plan
Presenting with increasing lethargy following recent hospitalization
Discharged from on 08/25/23 after emergent bronchoscopy performed 08/18/2023 with some mucous plugs removed
ABG on presentation: 7.24 -54 -206 prior ABG 7.2 -55, 7.13 -68
Family notes she has been on vent during the day
Repeat CXR 08/30 with similar appearance
Most recent download report from [facility] 08/16/23 showing usage 9.3 avg hours - MV 5.7 L/min - RR 23 - IPAP/EPAP 12.6/4.9 cm water - Avg VTe 249.1 - leak 32.5 L/min
Settings: Mode S, IPAP 13 EPAP 5
In the last few weeks, has noticed decline in TV to <200 on avg nightly
Not sure how settings were changed as she should have been on AC-equivalent TV 350/PS 8/40%/PEEP 5 per last office note
Symptoms resolved after placed on ventilator here.
On Monday will need to discuss with her [employer] company to adjust ventilator settings. Prior to discharge.
Continue nocturnal mechanical ventilation.
Continue with Mucomyst and nebulizers as needed/airway clearance
Continue with mucolytic's
CPAP/pressure support and trach collar weans--okay to use pressure support today. Will avoid trach collar for now.
Aspiration precautions
Routine tracheostomy tube care continues
I agree with discontinuation of antibiotics in the next 24 hours if cultures remain negative and there is no fevers.
Discussed with Dr. Yuan
Anemia: Transfused on 09/01/2019 form
Follow no evidence for active bleed
Follow renal function
I/Os, daily weights
DVT prophylaxis-on heparin
Early mobilization/bedside range of motion-baseline wheelchair-bound and ambulatory dysfunction
The patient was last seen in the pulmonary office by Kalpana Mobley NP 06/01/2023 and has an appointment 09/07/2023 at 10:30 AM
Can eval for discharge planning once Trilogy issue resolved
Diagnostic Data:
CXR 04-27, reviewed, L basilar atelectasis
CXR 04-19, resolved total L atelectasis, currently back to chronic L basilar atelectasis. New tracheostomy
CXR 04-16, portable, L basilar atelectasis
CXR 04/11/22- 1. Complete opacification of the left hemithorax, likely on the basis of a large pleural effusion and compressive atelectasis upon the left lung. Mild right basilar pneumonia suspected
Chest x-ray 08/17/2023-near complete opacification throughout the left Jovanni thorax
Echocardiogram 01/10/22-EF 60-65%, no significant valvular disease, small pericardial effusion
Echocardiogram 03/22/22: Normal left ventricular chamber size. Normal left ventricular systolic�function. Normal regional wall motion. Normal left ventricular wall thickness.�Left ventricular ejection fraction is 60-65%. Mild tricuspid
regurgitation.�Small to moderate pericardial effusion without evidence of hemodynamic�compromise.�Compared to the previous echo Dec 2021, there is no significant change.
CT CHEST 04/11/22- �A moderate to large left pleural effusion and complete collapse/atelectasis of the left lung account for the left hemithorax opacification on the prior chest radiograph. Findings are in part likely secondary to mucous plugging
given the presence of opacification of the left mainstem bronchus and left upper and lower lobe bronchi, patchy opacifications right middle and lower lobe suspicious for pneumonia, moderate right pleural effusion and ill-defined sclerotic lesion
T12, osseous metastasis not completely excluded
CT CHEST 03/22/22 - There is no CT evidence for pulmonary embolism. No aortic dissection.There are extremely large bilateral pleural effusions right greater than left and associated bilateral consolidation most prominent in the left lower
lobe.Cardiomegaly. Increased pericardial effusion.
CT chest 08/17/2023-occluded left mainstem bronchus presumably mucous plugs with complete atelectasis left lung moderate size left pleural effusion, small to moderate right pleural effusion
VSE 04/28/22: No aspiration. Laryngeal penetration with cough with thin liquids by cup.
Spirometry 09/09/21-FEV1 790 mL-36%, FVC 790 mL 27%. Some difficulties with maneuver and thus may offer unreliability. Severe restriction.�������
PFT 02/08/22-FVC 1.01/30%, FEV1 0.70/35%, ratio 69%, unable to perform lung volumes and diffusing capacity.
Subjective Data
-
Date of Service:
Date of Service: September 02, 2023
Chief Complaint: Pulmonary Follow Up (Acute respiratory failure/mucous plugging.)
Subjective:
No new complaints overnight
Tolerating ventilator well
Afebrile
Review of Systems
General: Fever (n)
Cardiopulmonary: Dyspnea (n)
GI: Abdominal Pain (n) and Nausea (n)
Neuro: Headache (n)
Objective Data
Data Reviewed
Vital Signs / I&O / Oxygen:
Vital Signs
Temp Pulse Resp BP Pulse Ox
98.6 F 76 18 129/79 99
09/02/23 11:34 09/02/23 08:00 09/02/23 08:00 09/02/23 08:00 09/02/23 09:14
Intake and Output
09/01/23 09/02/23 09/03/23
06:59 06:59 06:59
Intake Total 960 / 960 2200 / 2200
Output Total 350 / 350 600 / 600
Balance 960 / 960 1850 / 1850 -600 / -600
SaO2 [A/C] 99
SaO2 99
Physical Exam
General: Respiratory Distress (n) and Comfortable
HEENT: Normocephalic and Tracheotomy
Cardiovascular: S1-S2 and Regular Rhythm
Respiratory: Clear and Non-Labored Respirations
GI: Soft
Neurology: Awake
Labs/Micro/Reports
Microbiology
09/01/23 03:39 Nose MRSA Screen - Final
No Methicillin Resistant Staphylococcus aureus isolated.
08/31/23 14:39 Blood/Venous Blood Culture - Preliminary
Positive culture in progress
08/31/23 14:39 Blood/Venous Gram Stain - Preliminary
08/31/23 14:39 Blood/Venous Blood Culture - Preliminary
No Growth in 24 hours- Final report to follow
08/31/23 14:39 Urine Urine Culture - Final
No Significant Growth
--- NOTE | 2023-09-02 13:56 | PTCARENOTE ---
pox dropping to 86% on CPAP. suctioned for mod amount of thin white. Resp therapist placed pt back on A/C after 2.5 hrs on CPAP. pox returning to 100%. continuing to monitor
[2023-09-02 15:32] LABS: Hematocrit 26.5 % (37.0-47.0); Mean Corp Hgb Conc. 32.8 g/dL (33.0-37.0); Mean Corpuscular Volume 85.2 fL (81.0-99.0); Mean Platelet Volume 10.9 fL (7.4-10.4); Platelet Count 173 10^3/uL (130-400); Red Blood Cell Count 3.11 10^6/uL (4.20-5.40); Red Cell Dist. Width 15.9 % (11.5-14.5); White Blood Cell Count 7.3 10^3/uL (4.8-10.8)
[2023-09-02 15:34] LABS: Hemoglobin 8.7 g/dL (12.0-16.0)
[2023-09-02 15:45] LABS: Blood Urea Nitrogen 37 mg/dl (7-17); Calcium 8.1 mg/dl (8.4-10.2); Carbon Dioxide 19 mmol/L (22-30); Chloride 111 mmol/L (98-107); Estimated Creatinine Clearance 22 ml/min; Glucose 117 mg/dl (70-99); Potassium 3.7 mmol/L (3.5-5.1); Sodium 137 mmol/L (135-145); eGFR 23.16
[2023-09-02] MEDS: LIPITOR 20 MG PO (17:25)
[2023-09-02 17:36] LABS: Glucose - Point of Care 101 mg/dl (70-99)
[2023-09-02 18:20] LABS: Glucose - Point of Care 93 mg/dl (70-99)
[2023-09-02] MEDS: TYLENOL 1000 MG PO (20:45)
--- NOTE | 2023-09-02 21:19 | RESPNOTE ---
called to bedside, pt c/o trach ties feeling to tight. Loosened ties slightly, pt agrees it feels better,
[2023-09-02] MEDS: CARDURA 1 MG PO (22:44)
[2023-09-02 22:57] LABS: Glucose - Point of Care 100 mg/dl (70-99)
[2023-09-02 23:38] LABS: Glucose - Point of Care 95 mg/dl (70-99)
[2023-09-03] VITALS (21 sets, daily range): BP systolic 123–188; BP diastolic 57–114; BMI 25.9
[2023-09-03 05:28] LABS: Hematocrit 23.2 % (37.0-47.0); Hemoglobin 7.6 g/dL (12.0-16.0); Mean Corp Hgb Conc. 32.8 g/dL (33.0-37.0); Mean Corpuscular Hgb 27.7 pg (27.0-31.0); Mean Corpuscular Volume 84.7 fL (81.0-99.0); Mean Platelet Volume 11.5 fL (7.4-10.4); Platelet Count 162 10^3/uL (130-400); Red Blood Cell Count 2.74 10^6/uL (4.20-5.40); Red Cell Dist. Width 15.6 % (11.5-14.5); White Blood Cell Count 5.5 10^3/uL (4.8-10.8)
[2023-09-03 05:53] LABS: Blood Urea Nitrogen 35 mg/dl (7-17); Calcium 7.9 mg/dl (8.4-10.2); Carbon Dioxide 20 mmol/L (22-30); Chloride 112 mmol/L (98-107); Estimated Creatinine Clearance 21 ml/min; Glucose 84 mg/dl (70-99); Potassium 3.7 mmol/L (3.5-5.1); Sodium 138 mmol/L (135-145)
[2023-09-03 06:00] LABS: Glucose - Point of Care 93 mg/dl (70-99)
[2023-09-03] MEDS: NOVOLOG FLEXPEN-LOW RESISTANCE SC ×4 (06:06→18:09)
[2023-09-03] MEDS: DUONEB 3 ML INH ×3 (08:06→20:38)
--- NOTE | 2023-09-03 08:41 | W.PN.HOSP.TC ---
Today's Communication/Plan
-
Continue antibiotics, nebulizer treatments
Video swallow Monday
Pulmonary to evaluate and recommend if patient needs different settings for her ventilator at home
Assessment / Plan
Assessment / Plan
62-year-old female with chronic tracheostomy uses ventilator at night and trach collar during the day. She was admitted recently and was discharged on 08/25/2023 but she was admitted with acute on chronic hypoxic hypercapnic respiratory failure with
opacification of the left hemithorax. Patient underwent bronchoscopy on 08/18/2023 mucous plugs removed from the left. BAL grew Proteus and completed 7-day course of Unasyn per ID. She also had CHINTAN with CKD stage IV FLAVIO inhibitor was held.
Ultrasound of the kidney showed bilateral renal disease. She comes back with decreased responsiveness.
09/01/23 03:39 Nose MRSA Screen - Final
No Methicillin Resistant Staphylococcus aureus isolated.
08/31/23 14:39 Blood/Venous Blood Culture - Preliminary
Positive culture in progress
08/31/23 14:39 Blood/Venous Gram Stain - Preliminary
08/31/23 14:39 Blood/Venous Blood Culture - Preliminary
No Growth in 24 hours- Final report to follow
08/31/23 14:39 Urine Urine Culture - Final
No Significant Growth
CXR:
1). Mild parenchymal airspace disease at the right lung base may be atelectasis or interstitial pneumonia
2). Confluent pleural parenchymal airspace disease and retrocardiac left lung base is consistent with left-sided pleural effusion with underlying left lower lobe atelectasis
Echo 08/18/2023-normal LV size and systolic function. Ejection fraction 60 to 65%. Mild concentric LVH. Normal diastolic function. Normal RV size and function. Mild TR. Pulmonary pressure 30 cm of mercury. Small pericardial effusion without
hemodynamic compromise
Patient is awake and alert able to follow directions
On the ventilator
Cardiovascular system S1-S2 appreciated
Chest decreased breath sounds at bases few rales on the right
No pedal edema
# TME on admission-unclear reason doubt infection as she recently finished a course of antibiotics
Possible vent settings at home may need to be changed. She is on IPAP 13 EPAP at 5 at home
Pulmonary to take a look and commend
Video swallow evaluation Monday to rule out aspiration
Speech reevaluate when the patient is on trach collar
#Acute on chronic hypercapnic/hypoxemic respiratory failure:
-With acute respiratory acidosis
-Doubt acute infection at this time (no leukocytosis, one fever of 100.4F which could be inflammatory)
-pt given Vanco/Cefepime in the ER, has been on Vanco/Cefepime. Stop Vanco today with NEG MRSA screen. Follow BCx with prelim gram variable bacilli.
-Recently the patient's tidal volume has decreased to an average of less than 200cc nightly (will be rectified with [employer]). May need Trilogy use 10/10.
-pulmonary following
-Leave on assist-control mechanical ventilation until seen by pulm (450/14/5/40%)
#Anemia of chronic disease and Fe deficiency:
-s/p 1U pRBCs on 09/01/23
-One more unit today(Discussed with family at bed side)
#Positive LILIAN Screen-OP Rheum Eval.
#Acute metabolic encephalopathy
#CKD4, Cr at baseline
#DM2: cont Lantus/SSI/accuchecks IV fluids D5 and half-normal saline while n.p.o..
#Hx of small to moderate pericardial effusion
#Essential hypertension: cont Norvasc/doxazosin.
#Hyperlipidemia: Continue statin
#Coronary artery disease status post angioplasty: cont ASA/BB
#h/o C. diff
#COVID pneumonia 2019 with ECMO and ventilator and 3-month hospital stay at [place]
#Ambulatory dysfunction wheelchair-bound since June 2019
#Spinal stenosis
#Overweight per BMI criteria
#Hypoalbuminemia
#FULL CODE
#DVT prophylaxis-Heparin
Discussed with and daughter at bedside
Discussed with nursing at bedside
Medically complicated
Long-term prognosis not good
Anticipated Discharge: > 48 hours
Subjective/Interval History
-
Date of Service: September 03, 2023
Objective Data
-
Labs:
Laboratory Results
09/03/23
04:39
WBC 5.5
Hgb 7.6 L
Hct 23.2 L
Plt Count 162
Sodium 138
Potassium 3.7
Chloride 112 H
Carbon Dioxide 20 L
BUN 35 H
Creatinine 2.4 H
Glucose 84
Calcium 7.9 L
Vital Signs:
Vital Signs
Temp Pulse Resp BP Pulse Ox
98.3 F 69 22 154/62 100
09/03/23 07:31 09/03/23 08:13 09/03/23 08:13 09/03/23 06:00 09/03/23 08:13
I&O
09/02/23 09/03/23 09/04/23
06:59 06:59 06:59
Intake Total 2200 / 2200
Output Total 350 / 350 1100 / 1100
Balance 1850 / 1850 -1100 / -1100
[2023-09-03] MEDS: 0.45%NACL 1000 IV (09:03)
[2023-09-03] MEDS: HEPARIN 5000 UNITS SC ×2 (09:04→17:43)
[2023-09-03] MEDS: MAXIPIME 1000 MG IV (09:06)
[2023-09-03] MEDS: STERILE WATER FOR INJECTION 10 ML IV (09:06)
[2023-09-03] MEDS: NORVASC 10 MG PO (09:07)
[2023-09-03] MEDS: SODIUM BICARBONATE 650 MG PO ×2 (09:07→21:16)
[2023-09-03] MEDS: LOPRESSOR 50 MG PO ×2 (09:07→21:16)
[2023-09-03] MEDS: VITAMIN B-12 1000 MCG PO (09:07)
[2023-09-03] MEDS: FEOSOL 325 MG PO (09:07)
[2023-09-03] MEDS: MUCINEX 600 MG PO ×2 (09:07→21:16)
[2023-09-03] MEDS: VITAMIN D3 (cholecalciferol) 25 MCG PO (09:07)
[2023-09-03] MEDS: ASPIR LOW (ENTERIC COATED) 81 MG PO (09:07)
[2023-09-03] MEDS: DESENEX/MITRAZOL/ZEASORB 1 APPLIC TOPICAL ×2 (09:08→21:11)
[2023-09-03 10:17] LABS: Iron 27 ug/dl (37-170)
[2023-09-03 10:27] LABS: Percent Saturation 22 % (20-50); Total Iron Binding Capacity 118 ug/dl (265-497)
--- NOTE | 2023-09-03 10:36 | W.PN.PUL3 ---
Today's Communication / Plan
-
Discussed with [employer] company adjusting ventilator settings
Discontinue antibiotics today
Swallowing evaluation
Continue mechanical ventilation at night and pressure support during the day for now.
Routine trach care
Assessment
-
Patient is a 62 year old F with history of chronic hypoxic/hypercarbic resp failure s/p trach, post COVID illness, who p/w CC shortness of breath. The patient was recently discharged from 08/25/23 for mucus plugging. Family states that on day of
admission, the patient had decreased responsiveness. She is placed on Trilogy at night/trach collar through the day. She has been sleeping more and less conversive. They have noticed her exhaled TV on Trilogy reporting on avg <200cc nightly. Her
baseline settings are TV 350/PS8/40%/5+. Per medics, the patient was initially on 15 L but desaturated to the 80s. She had to be bagged and her saturations did improve. She is placed on vent in ER and saturations are now improved. CXR appears
similar to prior. We are consulted for eval 09/01/23.
Hypoxemic and hypercapnic respiratory failure due to mucous plug/left lung atelectasis
ABG 08/17/2023--52/59/7 0.24
Mucous plug/left lung atelectasis
Status post emergent bronchoscopy at the bedside 08/18/2023-mucous plugs removed from the left
Pneumonia
Left pleural effusion
CHINTAN
[id number]-[id number]-mfigqvcatc 7.0
Hypocalcemia
Hypernatremia
Metabolic and respiratory acidosis
Conditions present prior to admission:
Chronic hypercapnic/hypoxemic respiratory failure/chronic tracheostomy/nocturnal ventilation.
Severe Covid/ECMO 2019.
Diabetes.
Hypertension.
CAD/angioplasty 2020.
Recurrent UTI.
Ambulatory dysfunction/wheelchair-bound.
Chronic anemia.
Overweight.
Renal calculi.
Laparoscopic cholecystectomy 07/2020. Bilateral ureteroscopy with lithotripsy of the right renal stone and clearing of left renal pelvic fungal ball. Laminectomy. .
Plan
Presentation this admission with lethargy. Found to be hypercapnic.
Discharged from on 08/25/23 after emergent bronchoscopy performed 08/18/2023 with some mucous plugs removed
ABG on presentation: 7.24 -54 -206 prior ABG 7.2 -55, 7.13 -68
Family notes she has been on vent during the day prior to admission.
CXR 08/30 with similar appearance-no significant atelectasis.
Most recent download report from [facility] 08/16/23 showing usage 9.3 avg hours - MV 5.7 L/min - RR 23 - IPAP/EPAP 12.6/4.9 cm water - Avg VTe 249.1 - leak 32.5 L/min
Settings: Mode S, IPAP 13 EPAP 5
-
In the last few weeks, has noticed decline in TV to <200 on avg nightly
Not sure how settings were changed as she should have been on AC-equivalent TV 350/PS 8/40%/PEEP 5 per last office note
Symptoms resolved after being placed on ventilator here in the hospital.
Will need to make sure her ventilator settings are home are adjusted as above.
On Monday will need to discuss with her [employer] company to adjust ventilator settings. Prior to discharge.
Continue nocturnal mechanical ventilation.
Continue with Mucomyst and nebulizers as needed/airway clearance
Continue with mucolytic's
CPAP/pressure support and trach collar weans--okay to use pressure support today. Will avoid trach collar for now.
Aspiration precautions
Routine tracheostomy tube care continues
Will discontinue antibiotics today 2023: Afebrile. Cultures negative.
? Positive blood culture suspect contaminant
Follow-up blood cultures negative
Monitor off antibiotic
Discussed with Dr. Yuan
Recurrent microaspiration also has been contemplated in the past. She has been evaluated by speech therapy multiple times in the past. Diet has been modified.
Primary team ordered video barium swallow.
Anemia: Transfused on 09/01/2023
Hemoglobin improved.
Follow renal function
I/Os, daily weights
DVT prophylaxis-on heparin
Early mobilization/bedside range of motion-baseline wheelchair-bound and ambulatory dysfunction
The patient was last seen in the pulmonary office by Kalpana Mobley NP 06/01/2023 and has an appointment 09/07/2023 at 10:30 AM
Can eval for discharge planning once Trilogy issue resolved

Diagnostic Data:
CXR 04-27, reviewed, L basilar atelectasis
CXR 04-19, resolved total L atelectasis, currently back to chronic L basilar atelectasis. New tracheostomy
CXR 04-16, portable, L basilar atelectasis
CXR 04/11/22- 1. Complete opacification of the left hemithorax, likely on the basis of a large pleural effusion and compressive atelectasis upon the left lung. Mild right basilar pneumonia suspected
Chest x-ray 08/17/2023-near complete opacification throughout the left Jovanni thorax
Echocardiogram 01/10/22-EF 60-65%, no significant valvular disease, small pericardial effusion
Echocardiogram 03/22/22: Normal left ventricular chamber size. Normal left ventricular systolic�function. Normal regional wall motion. Normal left ventricular wall thickness.�Left ventricular ejection fraction is 60-65%. Mild tricuspid
regurgitation.�Small to moderate pericardial effusion without evidence of hemodynamic�compromise.�Compared to the previous echo Dec 2021, there is no significant change.
CT CHEST 04/11/22- �A moderate to large left pleural effusion and complete collapse/atelectasis of the left lung account for the left hemithorax opacification on the prior chest radiograph. Findings are in part likely secondary to mucous plugging
given the presence of opacification of the left mainstem bronchus and left upper and lower lobe bronchi, patchy opacifications right middle and lower lobe suspicious for pneumonia, moderate right pleural effusion and ill-defined sclerotic lesion
T12, osseous metastasis not completely excluded
CT CHEST 03/22/22 - There is no CT evidence for pulmonary embolism. No aortic dissection.There are extremely large bilateral pleural effusions right greater than left and associated bilateral consolidation most prominent in the left lower
lobe.Cardiomegaly. Increased pericardial effusion.
CT chest 08/17/2023-occluded left mainstem bronchus presumably mucous plugs with complete atelectasis left lung moderate size left pleural effusion, small to moderate right pleural effusion
VSE 04/28/22: No aspiration. Laryngeal penetration with cough with thin liquids by cup.
Spirometry 09/09/21-FEV1 790 mL-36%, FVC 790 mL 27%. Some difficulties with maneuver and thus may offer unreliability. Severe restriction.�������
PFT 02/08/22-FVC 1.01/30%, FEV1 0.70/35%, ratio 69%, unable to perform lung volumes and diffusing capacity.
Subjective Data
-
Date of Service:
Date of Service: September 03, 2023
Chief Complaint: Pulmonary Follow Up (Acute respiratory failure/mucous plugging.)
Subjective:
No overnight events
Tolerating mechanical ventilation
No new complaints
Review of Systems
Cardiopulmonary: Dyspnea (n), Dyspnea on Exertion (n) and Chest Pain (n)
GI: Abdominal Pain (n) and Nausea (n)
Objective Data
Data Reviewed
Vital Signs / I&O / Oxygen:
Vital Signs
Temp Pulse Resp BP Pulse Ox
98.3 F 83 22 147/59 100
09/03/23 07:31 09/03/23 09:07 09/03/23 08:13 09/03/23 09:07 09/03/23 08:13
Intake and Output
09/02/23 09/03/23 09/04/23
06:59 06:59 06:59
Intake Total 2200 / 2200
Output Total 350 / 350 1100 / 1100
Balance 1850 / 1850 -1100 / -1100
SaO2 [A/C] 96
SaO2 100
Physical Exam
General: Respiratory Distress (n) and Comfortable
HEENT: Normocephalic and Tracheotomy
Cardiovascular: S1-S2 and Regular Rhythm
Respiratory: Clear and Non-Labored Respirations
GI: Soft
Neurology: Awake
Labs/Micro/Reports
Lab Data
09/03/23 04:39
09/03/23 04:39
Microbiology
08/31/23 14:39 Blood/Venous Blood Culture - Preliminary
Positive culture in progress
08/31/23 14:39 Blood/Venous Gram Stain - Preliminary
08/31/23 14:39 Blood/Venous Blood Culture - Preliminary
No Growth in 48 hours- Final report to follow
09/01/23 03:39 Nose MRSA Screen - Final
No Methicillin Resistant Staphylococcus aureus isolated.
08/31/23 14:39 Urine Urine Culture - Final
No Significant Growth
[2023-09-03 11:07] LABS: Vitamin B12 664 pg/ml (239-931)
[2023-09-03] MEDS: D5/0.45%NACL 1000 IV (11:25)
[2023-09-03 12:09] LABS: Glucose - Point of Care 92 mg/dl (70-99)
[2023-09-03] MEDS: LIPITOR 20 MG PO (17:43)
[2023-09-03 18:07] LABS: Glucose - Point of Care 103 mg/dl (70-99)
[2023-09-03] MEDS: CARDURA 1 MG PO (21:16)
[2023-09-03] MEDS: LANTUS SC (22:44)
[2023-09-03 22:57] LABS: Glucose - Point of Care 93 mg/dl (70-99)
[2023-09-04] VITALS (11 sets, daily range): BP systolic 127–166; BP diastolic 55–92; BMI 25.4
--- NOTE | 2023-09-04 00:31 | PTCARENOTE ---
Care of Pt assumed from previous RN. Pt on vent, AC setting. Pt has occasional moist cough, suctioning as needed. Pt alert, mouthing words and communicates well. Pt given full bath. Barrier powder applied to needed areas. See nursing shift
assessment for full head to toe.
[2023-09-04] MEDS: HEPARIN 5000 UNITS SC ×3 (01:00→15:53)
[2023-09-04] MEDS: NOVOLOG FLEXPEN-LOW RESISTANCE SC ×4 (01:06→19:31)
[2023-09-04 01:09] LABS: Glucose - Point of Care 99 mg/dl (70-99)
[2023-09-04 05:55] LABS: Hemoglobin 8.7 g/dL (12.0-16.0); Mean Corp Hgb Conc. 32.2 g/dL (33.0-37.0); Mean Corpuscular Hgb 28.6 pg (27.0-31.0); Mean Corpuscular Volume 88.8 fL (81.0-99.0); Mean Platelet Volume 11.8 fL (7.4-10.4); Platelet Count 168 10^3/uL (130-400); Red Blood Cell Count 3.04 10^6/uL (4.20-5.40); Red Cell Dist. Width 15.5 % (11.5-14.5); White Blood Cell Count 9.8 10^3/uL (4.8-10.8)
[2023-09-04 06:31] LABS: Glucose - Point of Care 96 mg/dl (70-99)
[2023-09-04] MEDS: DUONEB 3 ML INH ×3 (07:18→20:47)
--- NOTE | 2023-09-04 08:00 | PTCARENOTE ---
Pt AAO on vent coughing NPO at this time. Family at bedside concerned rosa pt is not herself.Pt answered jy questions with words but would not answer family just looked at them. SHARATH Bishop aware and will see pt.
--- NOTE | 2023-09-04 09:42 | W.PN.HOSP.TC ---
Today's Communication/Plan
-
CT head,EEG,Lj eval
Long discussion with speech therapy. Family prefers to hold off on speech evaluation today.
Discussed with respiratory therapy as well regarding outpatient vent. Will discuss with pulmonary if ENT needs to be involved to rule out trach leak.
Does she need another Bronch?
Assessment / Plan
Assessment / Plan
62-year-old female with chronic tracheostomy uses ventilator at night and trach collar during the day. She was admitted recently and was discharged on 08/25/2023 but she was admitted with acute on chronic hypoxic hypercapnic respiratory failure with
opacification of the left hemithorax. Patient underwent bronchoscopy on 08/18/2023 mucous plugs removed from the left. BAL grew Proteus and completed 7-day course of Unasyn per ID. She also had CHINTAN with CKD stage IV FLAVIO inhibitor was held.
Ultrasound of the kidney showed bilateral renal disease. She comes back with decreased responsiveness.
09/01/23 03:39 Nose MRSA Screen - Final
No Methicillin Resistant Staphylococcus aureus isolated.
08/31/23 14:39 Blood/Venous Blood Culture - Preliminary
Positive culture in progress
08/31/23 14:39 Blood/Venous Gram Stain - Preliminary
08/31/23 14:39 Blood/Venous Blood Culture - Preliminary
No Growth in 24 hours- Final report to follow
08/31/23 14:39 Urine Urine Culture - Final
No Significant Growth
CXR:
1). Mild parenchymal airspace disease at the right lung base may be atelectasis or interstitial pneumonia
2). Confluent pleural parenchymal airspace disease and retrocardiac left lung base is consistent with left-sided pleural effusion with underlying left lower lobe atelectasis
Echo 08/18/2023-normal LV size and systolic function. Ejection fraction 60 to 65%. Mild concentric LVH. Normal diastolic function. Normal RV size and function. Mild TR. Pulmonary pressure 30 cm of mercury. Small pericardial effusion without
hemodynamic compromise
Patient is awake , responds to name , but not following directions. Cannot process or follow commands
On the ventilator
Cardiovascular system S1-S2 appreciated
Chest decreased breath sounds at bases few rales on the right
No pedal edema
#Acute TME on admission-unclear reason doubt infection as she recently finished a course of antibiotics
Possible vent settings at home may need to be changed. She is on IPAP 13 EPAP at 5 at home
RT also brought up a good point if patient has a trach leak. Will discuss with Pulm and see if ENT needs to evaluate.
Video swallow evaluation when she can follow directions
Now again with TME am 09/04/23 when family walked in they noticed.
Will get EEG,CT head,ABG,Neuro to evaluate
Pt off cefepime.
#Acute on chronic hypercapnic/hypoxemic respiratory failure:
-With acute respiratory acidosis
-Doubt acute infection at this time (no leukocytosis, one fever of 100.4F which could be inflammatory)
-pt given Vanco/Cefepime in the ER, has been on Vanco/Cefepime. Stop Vanco today with NEG MRSA screen. Follow BCx with prelim gram variable bacilli.
-Recently the patient's tidal volume has decreased to an average of less than 200cc nightly (will be rectified with [employer]). May need Trilogy use 10/10.
-pulmonary following
-On mechanical ventilation now
#One set of BC with lactobacillus Casei -Likely contaminant
#Anemia of chronic disease and Fe deficiency:
-s/p 2U pRBCs (on 09/01/23 and 09/03/23)
-Will GIve a dose of IV iron
#Positive LILIAN Screen-OP Rheum Eval.
#CKD4, Cr at baseline
#DM2: cont SSI/accuchecks IV fluids D5 and half-normal saline while n.p.o.. Lantus held
#Hx of small to moderate pericardial effusion
#Essential hypertension: cont Norvasc/doxazosin.
#Hyperlipidemia: Continue statin
#Coronary artery disease status post angioplasty: cont ASA/BB
#h/o C. diff
#COVID pneumonia 2019 with ECMO and ventilator and 3-month hospital stay at [facility]
#Ambulatory dysfunction wheelchair-bound since June 2019
#Spinal stenosis
#Overweight per BMI criteria
#Hypoalbuminemia
#FULL CODE
#DVT prophylaxis-Heparin
Discussed with and daughter at bedside
Discussed with nursing at bedside
Medically complicated
Long discussion with speech therapy. Family prefers to hold off on speech evaluation today.
Discussed with respiratory therapy as well regarding outpatient vent. Will discuss with pulmonary if ENT needs to be involved to rule out trach leak.
Does she need another Bronch?
Time 53 min
Anticipated Discharge: > 48 hours
Subjective/Interval History
-
Date of Service: September 04, 2023
Objective Data
-
Labs:
Laboratory Results
09/04/23 09/04/23
05:37 09:25
WBC 9.8
Hgb 8.7 L
Hct 27.0 L
Plt Count 168
HCO3 Pending
Vital Signs:
Vital Signs
Temp Pulse Resp BP Pulse Ox
99.1 F 75 14 143/74 98
09/04/23 07:15 09/04/23 07:22 09/04/23 07:22 09/04/23 04:00 09/04/23 07:22
I&O
09/03/23 09/04/23 09/05/23
06:59 06:59 06:59
Intake Total 250 / 250
Output Total 1100 / 1100
Balance -1100 / -1100 250 / 250
--- NOTE | 2023-09-04 09:51 | RESPNOTE ---
attempted to trial cpap wean via vent with SPEECH present. cpap settings 8/5 @40% trialed, patient's baseline weaning parameters. once on cpap, patient had low tidal volumes 150-200mL, PS support increased to 12 to meet desired tidal volumes,
patient demonstrated volumes 300-325mL. RR increased to low 30s while in cpap mode. SpO2 >93% during trial. Patient awake, does not appear to be in distress, however RR and Vt not within parameters to continue wean. mode switched to AC with settings
of 14-450-5-40%. LINDA Radford updated. Dr. Bishop updated with speech. No passy elva weans or cpap wean at this time. also noted to MD that patient has had a varying cuff leak throughout this admission.
--- NOTE | 2023-09-04 10:04 | PTCARENOTE ---
Dr Bishop saw pt states she was not like this yesterday. Pt now strict NPO no meds. Seen by speech and rsp , no speaking valve or cpap at this time due to change in mental status
[2023-09-04] MEDS: D5/0.45%NACL 1000 IV (10:34)
[2023-09-04] MEDS: FEOSOL PO (10:35)
[2023-09-04] MEDS: SODIUM BICARBONATE PO ×2 (10:35→21:40)
[2023-09-04] MEDS: MUCINEX PO ×2 (10:35→21:39)
[2023-09-04] MEDS: NORVASC PO (10:35)
[2023-09-04] MEDS: LOPRESSOR PO ×2 (10:35→21:38)
[2023-09-04] MEDS: VITAMIN D3 (cholecalciferol) PO (10:35)
[2023-09-04] MEDS: VITAMIN B-12 PO (10:35)
[2023-09-04] MEDS: ASPIR LOW (ENTERIC COATED) PO (10:36)
[2023-09-04] MEDS: DESENEX/MITRAZOL/ZEASORB 1 APPLIC TOPICAL ×2 (10:36→21:36)
[2023-09-04 10:50] LABS: B.E. -6.3 mmol/L; O2 Saturation % 99.8 % (94-98); PCO2 36 mmHg (32-35); PO2 156 mmHg (83-108); pH 7.33 (7.35-7.45)
--- NOTE | 2023-09-04 12:10 | PTCARENOTE ---
Pt to CT Scan without incident
[2023-09-04 12:58] LABS: Glucose - Point of Care 88 mg/dl (70-99)
[2023-09-04] MEDS: FERRLECIT 110 MG IV (13:36)
--- NOTE | 2023-09-04 15:22 | CON.NEURO4 ---
Addendum entered and electronically signed by Davis Jernigan MD 09/04/23 17:23:
I saw and evaluate the patient I reviewed the note by Audrey Marrufo agree to find the following comments:
62-year-old woman with a past medical history of severe COVID requiring ECMO and subsequent need for tracheostomy usually on trach collar presented to hospital with symptoms of shortness of breath. He had had a recent hospitalization for similar
symptoms and was treated for respiratory failure possibly pneumonia.
Neurology consulted as family had seen that she seemed to be poorly responsive and not talking properly this morning. During this event the patient did have eyes open and was able to track around the room but she was not following commands and was
poorly responsive although not completely unresponsive. Daughter noticed that she seemed to have some left hand small appeared to tremor which usually happens with illness but does not happen spontaneously. No history of any seizures as a child or
previous history of epilepsy in the family. No history of TIA or stroke. Daughter relates that she has chronic shoulder problems with significant difficulty lifting her right arm at baseline as well as a chronic right foot drop from the past
Neurologic examination
Chronically ill-appearing woman on trach collar
She is awake and alert she tracks and interacts, she has difficulty with simple one-step commands demonstrating impaired comprehension, she can repeat fairly well and does identify color well as well as says her name.
Cranial nerves II through XII are normal
Motor examination shows weakness 3/5 right shoulder abduction and significant weakness of the right leg with 1/5 movements of hip in the bed and little movement of ankle dorsiflexion and plantarflexion
CT head noncontrast no abnormality seen
EEG's with mild slowing diffusely
Assessment: Most likely a delirium toxic metabolic encephalopathy due to the current illness as well as previous illness as well, has spent a lot of time in the hospital since approximately 08/16 setting her up for delirium. She has chronic right
shoulder and leg weakness but do not appear to be brand-new focal neurologic issues. Patient does have some comprehension difficulties but otherwise clinical suspicion for stroke is low to medium.
Recommendations
-Continue treating respiratory illness and treating any metabolic abnormalities as able
-Minimize sedating medications especially benzodiazepines
-Goal normotension
-We will follow neurologic examination and assess if she needs further brain imaging for the time being CT head and EEG I think would be sufficient
-Continue aspirin 81 mg daily
-No indication for antiseizure medications asked daughter to watch for any left arm tremulousness
Will follow
Original Note:
Consultation - Neurology 4
-
CONSULTING PHYSICIAN: Oscar Jernigan MD
REFERRING PHYSICIAN: Hospitalists/Dr. Bishop
DICTATED BY: SATINDER Renee
DATE/TIME OF REQUEST: 09/04/23
DATE/TIME OF CONSULTATION: 09/04/23
Reason for Consultation: Change in mental status
History of Present Illness:
This is a year old female with a PMH of Covid pneumonia s/p ECMO/trach 2020, HTN, HLD, CAD, NIDDM, trach/oxygen dependence who has presented to the hospital on 08/31/23 with report of lethargy. Patient recently hospitalized here from 08/17/23-08/25/23
with acute on chronic hypercapnic respiratory failure, opacification of the left hemithorax s/p left bronchoscopy. Culture grew Proteus and she completed 7 days of Unasyn. She also had an CHINTAN and FLAVIO inhibitor was held. She presented to the ER again
on 08/31/23 with report of decreased responsiveness, lethargy, poor oral intake, and requiring greater ventilator time than usual. Per EMS patient de-sated to the 80's on 15L O2. CXR on admission similar to previous CXR. Infectious workup has been
unremarkable thus far. This morning (09/04/23) patient was noted by family to be less responsive than baseline and not following any commands. Her daughter also notes that her left hand was tremulous, which typically only happens when she has an
infection. At the time of this evaluation at 1100 patient's daughter notes that the patient is much more responsive, answering questions appropriately, but she is still not following commands on examination. She denies any headache, dizziness,
vision changes, numbness, new weakness, chest pain, palpitations, and shortness of breath. She reports chronic limited ROM in her R shoulder due to injury and R foot droop. She has no known history of TIA or stroke. She is taking aspirin 81mg daily.
Past Medical History: CAD, HTN, HLD, NIDDM requiring insulin, NM, Covid pneumonia 2020 requiring ECMO/trach/3m hospitalization at [facility], tracheostomy (trach collar day/vent at night), restrictive lung disease, pleural effusion, oxygen
dependent, recurrent UTI, wheelchair bound, anemia, kidney stones, osteoarthritis, right foot drop
Surgical History: Cardiac stent, cholecystectomy, lithotripsy, laminectomy, , tracheostomy
Family History: Reviewed and noncontributory.
Social History: Denies tobacco, alcohol, and illicit drug.
Allergies: Clarithromycin.
Home Medications: See below.
Review of Symptoms:
Patient denies any fever, headache, chest pain, shortness of breath, GI or symptoms.
�Per the HPI.�All systems are reviewed negative except above.
Physical Exam:
The patient is afebrile, abdomen is nondistended, breathing is unlabored on mechanical ventilation via trach, skin is warm and cool, RUE +3 edema.
Neurologic Examination:
The patient is awake, alert and oriented to self and place, not time. She is able to not able to follow any verbal commands, she does mimic appropriately. answer questions appropriately. Speech is hypophonic/dysarthric due to trach but she answers
questions appropriately, speech is fluent. On cranial nerve assessment, pupils are 3 mm bilateral, round and reactive to light and accommodation. Blinks to threat bilaterally. Extraocular movements are intact. There is no facial asymmetry. Hearing
is intact bilaterally to normal conversation volume. Tongue palate and uvula are midline. Motor strengths are 5/5 left upper, 2/5 RUE proximal but 5/5 distally, LLE 2/5, RLE 1/5 on medical research Wilmore scale. No involuntary movement noted.
Babinski is absent bilaterally. There was no extinction noted on double simultaneous stimulation. Coordination is intact by finger to nose in the LUE, MABEL RUE.
Lab Results: See below.
Neuro Imaging:
1. CT Head 09/04/23: No acute intracranial abnormality. Atrophic changes as seen prior, most pronounced along anterior bilateral temporal lobes. Mild acute on chronic paranasal sinusitis.
2. EEG 09/04/23: Moderately abnormal EEG for age due to diffuse bihemispheric slowing.
Differentials for the patient's presentation include:
1. Likely delirium from recent illness and prolonged hospitalization producing change in mental status.
2. CT head negative for any acute abnormalities.
3. Cannot entirely exclude stroke, but less likely.
4. EEG negative for seizure.
IV Tenecteplase/IAT candidacy: Not a candidate due to unclear diagnosis.
Recommendations:
-Continue aspirin 81mg daily.
-Limit use of sedating medication, avoid daytime napping, encourage daytime sunlight exposure, limit night time awakenings.
-Neurological checks per unit guidelines.
-If no improvement tomorrow, will consider MRI brain imaging.
-Checking blood work for metabolic abnormalities.
-DVT prophylaxis.
-Will follow.
Discussed patient care with: Dr. Jernigan, the patient, patient's family
Vital Signs and Labs
-
Vital Signs and Labs:
Vital Signs
Temp Pulse Resp BP Pulse Ox
99.3 F 90 28 151/68 94
09/04/23 11:36 09/04/23 13:51 09/04/23 13:51 09/04/23 12:00 09/04/23 13:51
Lab Results
09/04/23 05:37
09/03/23 04:39
PT 13.4 Sec (11.4-14.6) 08/31/23 14:39
INR 1.02 08/31/23 14:39
APTT 37.5 Sec (23.4-35.0) H 08/31/23 14:39
Sodium 138 mmol/L (135-145) 09/03/23 04:39
Potassium 3.7 mmol/L (3.5-5.1) 09/03/23 04:39
BUN 35 mg/dl (7-17) H 09/03/23 04:39
Glucose 84 mg/dl (70-99) 09/03/23 04:39
Calcium 7.9 mg/dl (8.4-10.2) L 09/03/23 04:39
Vitamin B12 664 pg/ml (084-931) 09/03/23 04:39
Medications
-
Active Medications
Generic Name Dose Route Start Last Admin
Trade Name Freq PRN Reason Stop Dose Admin
Acetaminophen 1,000 mg 08/31/23 21:08 09/02/23 20:45
Acetaminophen 500 Mg Tablet PO 09/28/23 21:07 1,000 mg
Q6HPRN PRN Administration
mild pain/ temp>100.5 F
Acetaminophen 650 mg 08/31/23 21:15
Acetaminophen 650 Mg Rectal Suppository RECTAL 09/28/23 21:14
Q4HPRN PRN
mild pain/ temp>100.5 F
Albuterol/Ipratropium 3 ml 08/31/23 21:08 09/04/23 13:46
Ipratropium 0.5/Albuterol 3 Mg (3 Ml Ampul) INH 3 ml
R TID JEAN Administration
Protocol
Amlodipine Besylate 10 mg 09/01/23 08:00 09/04/23 10:35
Amlodipine 10 Mg Tablet PO 09/29/23 07:59 Not Given
DAILY JEAN
Aspirin 81 mg 09/01/23 08:00 09/04/23 10:36
Aspirin 81 Mg (Enteric Coated) Tablet PO 09/29/23 07:59 Not Given
DAILY JEAN
Atorvastatin Calcium 20 mg 09/01/23 18:00 09/03/23 17:43
Atorvastatin (Lipitor) 20 Mg Tablet PO 09/29/23 17:59 20 mg
QPM JEAN Administration
Bisacodyl 10 mg 08/31/23 21:08
Bisacodyl 10 Mg Rectal Suppository RECTAL 09/28/23 21:07
[id number] PRN
constipation
Cholecalciferol 25 mcg 09/01/23 08:00 09/04/23 10:35
Cholecalciferol (Vitamin D3) 25 Mcg Tablet (1,000 Units) PO 09/29/23 07:59 Not Given
DAILY JEAN
Cyanocobalamin 1,000 mcg 09/01/23 08:00 09/04/23 10:35
Cyanocobalamin 1,000 Mcg Tablet PO 09/29/23 07:59 Not Given
DAILY JEAN
Dextrose 12.5 grams 08/31/23 21:08
Dextrose 50% (0.5 Grams/Ml) 50 Ml Syringe IV 09/28/23 21:07
[id number] PRN
hypoglycemia
Protocol
Doxazosin Mesylate 1 mg 08/31/23 22:00 09/03/23 21:16
Doxazosin 1 Mg Tablet PO 09/28/23 21:59 1 mg
HS JEAN Administration
Ferrous Sulfate 325 mg 09/01/23 08:00 09/04/23 10:35
Ferrous Sulfate 325 Mg Tablet PO 09/29/23 07:59 Not Given
DAILY JEAN
Glucagon 1 mg 08/31/23 21:08
Glucagon 1 Mg Vial IM 09/28/23 21:07
PRN PRN
hypoglycemia
Protocol
Guaifenesin 600 mg 08/31/23 21:08 09/04/23 10:35
Guaifenesin 600 Mg Extended Release Tablet PO 09/28/23 21:07 Not Given
Q12 JEAN
Heparin Sodium 5,000 units 09/01/23 00:00 09/04/23 10:36
Heparin 5,000 Units/Ml 1 Ml Vial SC 09/29/23 00:00 5,000 units
Q8 JEAN Administration
Insulin Glargine 10 units/ 0.1 mls @ 0 mls/hr 08/31/23 22:00 09/03/23 22:44
Device SC 09/28/23 21:59 Not Given
HS JEAN
As Directed
Dextrose/Sodium Chloride 1,000 mls @ 40 mls/hr 09/03/23 10:00 09/04/23 10:34
D5/0.45%Nacl IV 1,000 mls
.Q24H JEAN Administration
Insulin Aspart 0 units 09/01/23 06:00 09/04/23 12:48
Insulin Aspart Low Resistance 300 Units/3 Ml Pen.Injctr SC 09/29/23 05:59 Not Given
Q6 JEAN
Protocol
Loratadine 10 mg 08/31/23 21:08
Loratadine 10 Mg Tablet PO 09/28/23 21:07
DAILYPRN PRN
allergy symptoms
Metoprolol Tartrate 50 mg 08/31/23 22:00 09/04/23 10:35
Metoprolol 50 Mg Regular Release Tablet PO 09/28/23 21:59 Not Given
BID JEAN
Miconazole Nitrate 0 applic 09/01/23 20:00 09/04/23 10:36
Miconazole Powder Bottle TOPICAL 09/29/23 19:59 1 applic
BID JEAN Administration
Pantoprazole Sodium 40 mg 08/31/23 21:08
Pantoprazole 40 Mg Delayed Release Tablet PO 09/28/23 21:07
DAILYPRN PRN
gi issues
Polyethylene Glycol 17 grams 08/31/23 21:08
Polyethylene Glycol Powder 17 Grams Packet PO 09/28/23 21:07
DAILYPRN PRN
constipation
Senna/Docusate Sodium 1 tablet 08/31/23 21:08
Docusate W/Senna (Lupe-Colace) Tablet PO 09/28/23 21:07
BIDPRN PRN
constipation
Sodium Bicarbonate 650 mg 08/31/23 21:08 09/04/23 10:35
Sodium Bicarbonate 650 Mg Tablet PO 09/28/23 21:07 Not Given
BID JEAN
Sodium Chloride 0 flush 08/31/23 22:00
Sodium Chloride 0.9% (Flush) Syringe IV 09/28/23 21:59
PER PROTOCOL JEAN
Home Medications
�Medication �Instructions �Recorded
acetaminophen 500 mg tablet 1,000 mg (2 x 500 mg) PO Q6HPRN 08/20/20
(Tylenol Extra Strength) PRN mild pain/ temp>100.5 F
insulin lispro 100 unit/mL 0 sliding scale dose SC ACHS 09/10/20
subcutaneous pen (Humalog KwikPen Diabetes
(U-100) Insulin)
ferrous gluconate 324 mg (37.5 mg 324 mg PO BID Supplement 11/27/21
iron) tablet
metformin 500 mg tablet,extended 1,000 mg PO BID@0800,1700 Diabetes 11/27/21
release 24 hr
metoprolol tartrate 25 mg tablet 50 mg PO BID Blood pressure 01/10/22
loratadine 10 mg tablet (Allergy 10 mg PO DAILY PRN allergy symptoms 01/30/22
Relief (loratadine))
atorvastatin 20 mg tablet 20 mg PO QPM High cholesterol #30 02/01/22
tabs
doxazosin 1 mg tablet 1 mg PO HS Blood pressure #30 tabs 02/01/22
cholecalciferol (vitamin D3) 25 25 mcg PO DAILY Supplement 03/22/22
mcg (1,000 unit) tablet
cyanocobalamin (vitamin B-12) 1,000 mcg PO DAILY Supplement 03/22/22
1,000 mcg tablet
ipratropium 0.5 mg-albuterol 3 mg 3 ml inhalation R TID 08/17/23
(2.5 mg base)/3 mL nebulization Lung/Breathing Issues
soln
pantoprazole 40 mg tablet,delayed 40 mg PO DAILYPRN PRN gi issues 08/17/23
release
tirzepatide 7.5 mg/0.5 mL 7.5 mg SC TAGN Diabetes 08/17/23
subcutaneous pen injector
(Gallo)
amlodipine 10 mg tablet (Norvasc) 10 mg PO DAILY Blood Pressure 08/31/23
aspirin 81 mg tablet,delayed 81 mg PO DAILY Blood Clot 08/31/23
release Prevention/Tx
guaifenesin 600 mg tablet, 600 mg PO Q12 Congestion 08/31/23
extended release 12 hr
insulin detemir U-100 100 unit/mL 10 unit SC HS Diabetes 08/31/23
(3 mL) subcutaneous pen (Levemir
FlexPen)
sodium bicarbonate 650 mg tablet 650 mg PO BID Kidney Disease 08/31/23
--- NOTE | 2023-09-04 15:49 | EEG.RPT ---
Electroencephalogram Report
Recording
Length of EEG recordin minutes
Patient Status: Inpatient
Recording Conditions: Awake and Drowsy
Hyperventilation Performed: No
Photic Stimulation Performed: Yes
Hand Dominance: Unknown
Report
LESS THAN 1 HOUR EEG REPORT
LESS THAN 1 HOUR EEG INTERPRETATION:
Moderately abnormal EEG for age due to diffuse bihemispheric slowing
CLINICAL CORRELATION:
This study was suggestive of diffuse cortical dysfunction without focal abnormality. No seizures were recorded.
Clinical correlation is advised.
METHODS:
A 21 channel digitized electroencephalogram (EEG) was performed at the bedside. The 10/20 international system of electrode placement was used with ECG and lateral/vertical eye movements recorded. Persyst QEEG monitoring was performed. Study lasted
26 minutes.
QUALITY OF STUDY:
Good
ELECTROENCEPHALOGRAPHER IMPRESSION(S):
Background
Mixed medium amplitude mostly delta frequency background in awake and drowsy states
No normal posterior dominant rhythm seen
There were no significant asymmetries of background activity noted.
Sleep
Drowsiness present
Photic Stimulation
Failed to activate the record.
ECG
Normal sinus rhythm
Abnormalities
Moderate diffuse slowing, no seizures or interictal epileptiform discharges seen
--- NOTE | 2023-09-04 16:19 | CM ---
Patient with Hx trach collar daytime, mechanical ventilation at night, Ambulatory dysfunction, w/c bound with Dx Acute on chronic hypercapnic/hypoxemic respiratory failure, acute TME, anemia. Vent/trach collar, suspected trach leak. NPO.
Receiving IVF. Seen by wound care nurse.
CM continuing to follow for d/c needs.
Plan home by ambulance when medically ready.
[2023-09-04] MEDS: LIPITOR PO (16:31)
--- NOTE | 2023-09-04 17:25 | W.PN.PUL3 ---
Today's Communication / Plan
-
Discuss with [employer] adjusting ventilator settings
Discontinue antibiotics on 09/02
Swallowing evaluation --> will try inline speaking trial today
Continue mechanical ventilation at night and pressure support during the day for now --> check VBG in AM to assure pCO2 and pH are stable; when she is weaning during the day, check VBG prior to placing her back onto vent so we can accurately assess
her ventilation and make adjustments to the vent if needed
Routine trach care
Aggressive chest PT with vest therapy + Mucomyst + DuoNebs + start sport bed
Serial CXR to assure L-sided atelectasis improves
Assessment
-
Patient is a 62 year old F with history of chronic hypoxic/hypercarbic resp failure s/p trach, post COVID illness, who p/w CC shortness of breath. The patient was recently discharged from 08/25/23 for mucus plugging. Family states that on day of
admission, the patient had decreased responsiveness. She is placed on Trilogy at night/trach collar through the day. She has been sleeping more and less conversive. They have noticed her exhaled TV on Trilogy reporting on avg <200cc nightly. Her
baseline settings are TV 350/PS8/40%/5+. Per medics, the patient was initially on 15 L but desaturated to the 80s. She had to be bagged and her saturations did improve. She is placed on vent in ER and saturations are now improved. CXR appears
similar to prior. We are consulted for eval 09/01/23.
Impression:
Hypoxemic and hypercapnic respiratory failure due to recurrent mucous plug/left lung atelectasis
ABG 08/17/2023--52/59/7 0.24
Mucous plug/left lung atelectasis
Status post emergent bronchoscopy at the bedside 08/18/2023-mucous plugs removed from the left
Pneumonia
Left pleural effusion
CHINTAN (Cr baseline 2.1)
Anemia-normocytic
Hypocalcemia
Hypernatremia
Metabolic and respiratory acidosis
Conditions present prior to admission:
Chronic hypercapnic/hypoxemic respiratory failure/chronic tracheostomy/nocturnal ventilation.
Severe Covid/ECMO 2019.
Diabetes.
Hypertension.
CAD/angioplasty 2020.
Recurrent UTI.
Ambulatory dysfunction/wheelchair-bound.
Chronic anemia.
Overweight.
Renal calculi.
Laparoscopic cholecystectomy 07/2020. Bilateral ureteroscopy with lithotripsy of the right renal stone and clearing of left renal pelvic fungal ball. Laminectomy. .
Plan
Presentation this admission with lethargy. Found to be hypercapnic.
Discharged from on 08/25/23 after emergent bronchoscopy performed 08/18/2023 with some mucous plugs removed
ABG on presentation: 7.24 -54 -206 prior ABG 7.2 -55, 7.13 -68
Family notes she has been on vent during the day prior to admission.
CXR 08/30 with similar appearance-no significant atelectasis.
Most recent download report from [facility] 08/16/23 showing usage 9.3 avg hours - MV 5.7 L/min - RR 23 - IPAP/EPAP 12.6/4.9 cm water - Avg VTe 249.1 - leak 32.5 L/min
Settings: Mode S, IPAP 13 EPAP 5
-
In the last few weeks, has noticed decline in TV to <200 on avg nightly
Not sure how settings were changed as she should have been on AC-equivalent TV 350/PS 8/40%/PEEP 5 per last office note
Symptoms resolved after being placed on ventilator here in the hospital.
Will need to make sure her ventilator settings are home are adjusted as above.
Will need to discuss with her [employer] to adjust ventilator settings. Prior to discharge.
Continue nocturnal mechanical ventilation.
Continue with Mucomyst and nebulizers as needed/airway clearance
Continue with mucolytic's
CPAP/pressure support and trach collar weans--okay to use pressure support today. Will avoid trach collar for now.
Aspiration precautions
Routine tracheostomy tube care continues
I will Rx her a sport bed and advised RT to suction often with vest therapy q6hr with mucomyst and Duonebs, and will obtain serial CXR to assure her L-sided atelectasis improves --> I personally reviewed her 2100 CXR tonight and it does look
improved compared to prior study from earlier today
Discontinued antibiotics on 2023: Afebrile. Cultures negative.
? Positive blood culture suspect contaminant
Follow-up blood cultures negative
Monitor off antibiotic
Discussed with Dr. Yuan
Recurrent microaspiration also has been contemplated in the past. She has been evaluated by speech therapy multiple times in the past. Diet has been modified.
Primary team ordered video barium swallow.
Anemia: Transfused on 09/01/2023 + 09/03/2023 (1 U PRBC each day)
trend Hb and transfuse as needed to keep >7g/dL
Follow renal function
I/Os, daily weights
DVT prophylaxis-on heparin
Early mobilization/bedside range of motion-baseline wheelchair-bound and ambulatory dysfunction
The patient was last seen in the pulmonary office by Kalpana Mobley NP 06/01/2023 and has an appointment 09/07/2023 at 10:30 AM --> this will likely need to be re-scheduled as I doubt she will be discharged over next 48 hrs
Can eval for discharge planning once Trilogy issue resolved
I do not feel any crepitus on her neck exam, and perhaps her neck had been puffed out today given her left-sided atelectasis. Unclear if ENT consultation would be useful however if we can confirm that the settings can be optimized for home use on
the Trilogy then I believe patient can safely be discharged home. I will also discuss options with case management as ideally we should send patient home on a portable ventilator. Unknown if this is even possible.
Total time spent today was 50 minutes for this encounter. Time includes reviewing laboratory test/imaging results, reviewing pertinent medical records, obtaining and reviewing medical history, performing an appropriate exam, ordering medications,
tests and procedures. Time also includes documentation of this encounter, coordinating patient care and communicating with other healthcare professionals. Total time does not include separately billed tests performed on this date of service.

Diagnostic Data:
CXR 04-27, reviewed, L basilar atelectasis
CXR 04-19, resolved total L atelectasis, currently back to chronic L basilar atelectasis. New tracheostomy
CXR 04-16, portable, L basilar atelectasis
CXR 04/11/22- 1. Complete opacification of the left hemithorax, likely on the basis of a large pleural effusion and compressive atelectasis upon the left lung. Mild right basilar pneumonia suspected
Chest x-ray 08/17/2023-near complete opacification throughout the left Jovanni thorax
Echocardiogram 01/10/22-EF 60-65%, no significant valvular disease, small pericardial effusion
Echocardiogram 03/22/22: Normal left ventricular chamber size. Normal left ventricular systolic�function. Normal regional wall motion. Normal left ventricular wall thickness.�Left ventricular ejection fraction is 60-65%. Mild tricuspid
regurgitation.�Small to moderate pericardial effusion without evidence of hemodynamic�compromise.�Compared to the previous echo Dec 2021, there is no significant change.
CT CHEST 04/11/22- �A moderate to large left pleural effusion and complete collapse/atelectasis of the left lung account for the left hemithorax opacification on the prior chest radiograph. Findings are in part likely secondary to mucous plugging
given the presence of opacification of the left mainstem bronchus and left upper and lower lobe bronchi, patchy opacifications right middle and lower lobe suspicious for pneumonia, moderate right pleural effusion and ill-defined sclerotic lesion
T12, osseous metastasis not completely excluded
CT CHEST 03/22/22 - There is no CT evidence for pulmonary embolism. No aortic dissection.There are extremely large bilateral pleural effusions right greater than left and associated bilateral consolidation most prominent in the left lower
lobe.Cardiomegaly. Increased pericardial effusion.
CT chest 08/17/2023-occluded left mainstem bronchus presumably mucous plugs with complete atelectasis left lung moderate size left pleural effusion, small to moderate right pleural effusion
VSE 04/28/22: No aspiration. Laryngeal penetration with cough with thin liquids by cup.
Spirometry 09/09/21-FEV1 790 mL-36%, FVC 790 mL 27%. Some difficulties with maneuver and thus may offer unreliability. Severe restriction.�������
PFT 02/08/22-FVC 1.01/30%, FEV1 0.70/35%, ratio 69%, unable to perform lung volumes and diffusing capacity.
Subjective Data
-
Date of Service:
Date of Service: September 04, 2023
Chief Complaint: Pulmonary Follow Up (Acute respiratory failure/mucous plugging.)
Subjective:
Patient seen and evaluated today. EEG done today showing diffuse bihemispheric slowing with no seizures. When I saw the patient she was in no acute distress, and patient's daughter and patient's were at bedside. I reviewed the CXR which
showed a left-sided whiteout. Patient currently on FiO2 40%, PEEP of 5 with peak pressure 32, breathing at 21 breaths/min and VTe 410 mL. Patient currently tachycardic to 105 and saturating 97%. Patient confused this morning but still able to
answer my questions appropriately � denies chest pain, headache, abdominal pain, chills.
Review of Systems
General: Other (Negative unless mentioned above)
Objective Data
Data Reviewed
Vital Signs / I&O / Oxygen:
Vital Signs
Temp Pulse Resp BP Pulse Ox
98.7 F 90 28 151/68 94
09/04/23 15:06 09/04/23 13:51 09/04/23 13:51 09/04/23 12:00 09/04/23 13:51
Intake and Output
09/03/23 09/04/23 09/05/23
06:59 06:59 06:59
Intake Total 250 / 250 600 / 600
Output Total 1100 / 1100
Balance -1100 / -1100 250 / 250 600 / 600
SaO2 [A/C] 99
SaO2 94
Physical Exam
General: Respiratory Distress (n) and Comfortable
HEENT: Normocephalic, Anicteric and Tracheotomy
Cardiovascular: S1-S2, Peripheral Edema (Negative) and Other (Tachycardic)
Respiratory: Wheeze (Negative), Crackles (Negative), Rhonchi (Bilaterally (L >R)) and Non-Labored Respirations
GI: Soft, Non Distended, Non Tender and Normal Bowel Sounds
Neurology: Awake and Other (Confused at times)
Labs/Micro/Reports
Lab Data
09/04/23 05:37
09/03/23 04:39
Laboratory Results
09/04/23
10:32
pH 7.33 L
pCO2 36 H
pO2 156 H
HCO3 19.0 L
O2 Delivery Level
Microbiology
08/31/23 14:39 Blood/Venous Blood Culture - Preliminary
No Growth in 4 days- Final report to follow
08/31/23 14:39 Blood/Venous Blood Culture - Preliminary
Lactobacillus casei
08/31/23 14:39 Blood/Venous Gram Stain - Preliminary
09/01/23 03:39 Nose MRSA Screen - Final
No Methicillin Resistant Staphylococcus aureus isolated.
[2023-09-04 17:52] LABS: TSH Reflex To Free T4 2.69 uIU/ml (0.47-4.68)
[2023-09-04 18:02] LABS: Glucose - Point of Care 96 mg/dl (70-99)
[2023-09-04] MEDS: MUCOMYST 10% 4 ML INH (20:47)
[2023-09-04] MEDS: CARDURA PO (21:41)
--- NOTE | 2023-09-04 22:42 | PTCARENOTE ---
Addendum entered by Rubens Cabral RN 09/05/23 01:08:
Pt switched over to sport bed.
Original Note:
Order received for sport bed. Bed received from [facility].
[2023-09-05] VITALS (14 sets, daily range): BP systolic 108–161; BP diastolic 51–128
[2023-09-05 00:03] LABS: Glucose - Point of Care 86 mg/dl (70-99)
[2023-09-05] MEDS: HEPARIN 5000 UNITS SC ×4 (00:07→23:08)
[2023-09-05] MEDS: NOVOLOG FLEXPEN-LOW RESISTANCE SC ×5 (00:07→23:08)
[2023-09-05] MEDS: MUCOMYST 10% 4 ML INH ×4 (01:59→20:48)
[2023-09-05] MEDS: DUONEB 3 ML INH ×4 (01:59→20:48)
[2023-09-05 04:09] LABS: Venous Blood Gas HCO3 18.9 mmol/L (22-27); Venous Blood Gas O2 Sat % 99.3 %; Venous Blood Gas pCO2 44 mmHg (35-48); Venous Blood Gas pH 7.24 (7.32-7.43); Venous Blood Gas pO2 118 mmHg (30-50)
[2023-09-05 04:15] LABS: Venous Blood Gas O2 Therapy 40%
[2023-09-05 06:32] LABS: Glucose - Point of Care 97 mg/dl (70-99)
--- NOTE | 2023-09-05 06:49 | W.PN.NEURO.1 ---
Today's Communication / Plan
-
-Continue supportive care, following respiratory function and basic bloodwork
-Minimize sedating medications
-Follow mental status clinically
-No further neurologic imaging for time being
-Monitor for tremulousness, my suspicion for seizures present is low, no indication for antiseizure medications
Neuro Assessment/Plan
Assessment
Assessment: Most likely a delirium toxic metabolic encephalopathy due to the current illness as well as previous illness as well, has spent a lot of time in the hospital since approximately 08/16 setting her up for delirium, sleep deprivation,
significant chronic medical issues. She has chronic right shoulder and leg weakness but do not appear to be brand-new focal neurologic issues.
Patient does have some comprehension difficulties but otherwise clinical suspicion for stroke is low to medium.
Had hypercapnia and minor CHINTAN most likely contributing.
Cefepime may contribute to encephalopathy especially in patients with CKD/CHINTAN.
EEG with generalized mild slowing, no seizures no interictal discharges
Subjective/Objective
Subjective Data
Date of Service: September 05, 2023
No acute events, patient resting and awakens to voice, will engage and interact with examiner, tracks, says name
Objective Data
Vital Signs
Temp Pulse Resp BP Pulse Ox
99.7 F 97 19 159/88 97
09/05/23 04:24 09/05/23 02:27 09/05/23 02:27 09/05/23 02:27 09/05/23 04:00
Lab Results
09/04/23 05:37
09/03/23 04:39
PT 13.4 Sec (11.4-14.6) 08/31/23 14:39
INR 1.02 08/31/23 14:39
APTT 37.5 Sec (23.4-35.0) H 08/31/23 14:39
Sodium 138 mmol/L (135-145) 09/03/23 04:39
Potassium 3.7 mmol/L (3.5-5.1) 09/03/23 04:39
BUN 35 mg/dl (7-17) H 09/03/23 04:39
Glucose 84 mg/dl (70-99) 09/03/23 04:39
Calcium 7.9 mg/dl (8.4-10.2) L 09/03/23 04:39
Vitamin B12 664 pg/ml (239-931) 09/03/23 04:39
Patient Allergies
clarithromycin Allergy (Verified 08/31/23 14:28)
TACHYCARDIA
Review of Systems
-
Unable to obtain full review of systems at this time due to: Language Barrier and Lethargy
Physical Exam
-
General: Appears Chronically Ill and Other (Tracheostomy in place no abnormalities, calm, resting)
Eyes: Unremarkable
HEENT: Tracheostomy Collar; Negative Pharyngeal Erythema or Neck Masses
Respiratory: No Dyspnea
Cardiac: Regular Rhythm, No Murmur and S1/S2
GI: Soft and Non-tender
Skin: Warm, Dry and Rash
Extremities: Other (Right arm edema)
Psych: Negative Agitated
Extended Neurological Exam
Attention Span & Concentration: Awake, Alert, Interactive and Other (Says name, obeys commands rarely, tracks and interacts)
Memory: Unable to Assess
Tremor: Hand Tremor Absent
Involuntary Movement: None
Speech: Negative Expressive Aphasia
Cranial Nerve II: Left Eye: Pupillary Reactivity Unremarkable, Pupillary Size Unremarkable and Other (Blinks to threat in all quadrants of vision bilaterally)
Cranial Nerve II: Right Eye: Pupillary Reactivity Unremarkable, Pupillary Size Unremarkable and Other (Blinks to threat in all quadrants of vision bilaterally)
Cranial Nerves III, IV, : Extraocular Movement: Extraocular Movement Full in all Directions
Cranial Nerve VII: Facial Symmetry: Normal Facial Symmetry
Muscle Strength, Overall: Other (Right arm at best 3/5 efforts of arm flexion and abduction, right leg hip flexion 4/5, right ankle minimal 1/5 ankle dorsiflexion/plantarflexion)
Data Reviewed
-
CT Head: Report Reviewed and Image Reviewed
EEG: Report Reviewed
[2023-09-05] MEDS: DESENEX/MITRAZOL/ZEASORB 1 APPLIC TOPICAL ×2 (07:41→19:41)
--- NOTE | 2023-09-05 08:42 | PN.CDI ---
CDI
- -
CDI:
Physician Documentation Request
Admit Date: 08/31/23 18:58
Dear Doctor Dario,
Patient admitted with TME.
08/31 N note, 'Patient admitted with: deep dermal stage 2 and stage 3 sacral/buttocks pressure injuries. L ischial deep dermal stage 2 pressure injuries.'
Physician documentation of the type and location of wounds is required for compliant documentation. Based on the above clinical findings and your assessment, please provide the following in your progress note:
Type (etiology) of ulcer/wound:
- Pressure (decubitus) ulcer
- Other
- Unable to determine
For a pressure ulcer, please also include the stage* of the ulcer:
- Stage 1 - Skin intact, non-blanchable redness
- Stage 2 - Partial thickness loss of dermis, includes intact or open blister
- Stage 3 - Full thickness tissue not including bone, tendon or muscle
- Stage 4 - Full thickness tissue loss, including exposed bone, tendon or muscle
- Unstageable - Full thickness loss in which the base of the ulcer is covered by slough (yellow, hansen, garcía, green or brown) and/or eschar (hansen, brown or black) in the wound bed.
- Unable to determine
Use of terms such as suspected, likely, concern for, or probable (associated with a specific diagnosis that is being evaluated, monitored, or treated as if it exists) are acceptable and can be coded in the inpatient setting, when documented at the
time of discharge.
Thank you,
Gaby SANABRIA,RN,CCDS
CDI Specialist
Available via [employer] text
Please use your independent medical judgment in providing your response.
*Source: National Pressure Ulcer Advisory Panel (NPUAP)
[2023-09-05] MEDS: TYLENOL/FEVERALL 650 MG RECTAL (08:45)
--- NOTE | 2023-09-05 09:00 | PTOTSP ---
Speech Language Pathology
CXR completed 09/03 showing new complete opacification of L hemithorax (differential diagnosis includes bronchial obstruction with L lung atelectasis and pleural effusion with underlying compressive atelectasis). Pt is now also febrile. Spoke with
RT, and pt not appropriate for inline speaking valve trials or for partial or full cuff deflation given respiratory status.
Will plan to hold on swallowing evaluation until more stable and able to at least tolerate partial cuff deflation. Pt admitted 08/30 and has had no source of nutrition since that time. As swallow evaluation continues to be inappropriate, recommend
to consider short-term non-oral nutrition. [employer] to continue to follow as appropriate.
--- NOTE | 2023-09-05 09:10 | W.PN.PUL3 ---
Today's Communication / Plan
-
Abx restarted due to fever
Discuss with [employer] adjusting ventilator settings --> will see if family can bring in trilogy machine from home so that we can place pt onto this and assure she is stable before she goes back home
Discontinue antibiotics on 09/02
Swallowing evaluation --> deferred for now until we can get her back onto Tc during the day
Continue mechanical ventilation ATC today with PEEP at 8 -> CXR tomorrow AM
ENT consult
Routine trach care
Aggressive chest PT with cofflator, Mucomyst + DuoNebs + start sport bed
Serial CXR to assure L-sided atelectasis improves --> may need bronch for pulmonary toilet purposes
Assessment
-
Patient is a 62 year old F with history of chronic hypoxic/hypercarbic resp failure s/p trach, post COVID illness, who p/w CC shortness of breath. The patient was recently discharged from 08/25/23 for mucus plugging. Family states that on day of
admission, the patient had decreased responsiveness. She is placed on Trilogy at night/trach collar through the day. She has been sleeping more and less conversive. They have noticed her exhaled TV on Trilogy reporting on avg <200cc nightly. Her
baseline settings are TV 350/PS8/40%/5+. Per medics, the patient was initially on 15 L but desaturated to the 80s. She had to be bagged and her saturations did improve. She is placed on vent in ER and saturations are now improved. CXR appears
similar to prior. We are consulted for eval 09/01/23.
Impression:
Hypoxemic and hypercapnic respiratory failure due to recurrent mucous plug/left lung atelectasis
ABG 08/17/2023--52/59/7 0.24
Mucous plug/left lung atelectasis
Status post emergent bronchoscopy at the bedside 08/18/2023-mucous plugs removed from the left
Pneumonia
Left pleural effusion
CHINTAN (Cr baseline 2.1)
Anemia-normocytic
Hypocalcemia
Hypernatremia
Metabolic and respiratory acidosis
Conditions present prior to admission:
Chronic hypercapnic/hypoxemic respiratory failure/chronic tracheostomy/nocturnal ventilation.
Severe Covid/ECMO 2019.
Diabetes.
Hypertension.
CAD/angioplasty 2020.
Recurrent UTI.
Ambulatory dysfunction/wheelchair-bound.
Chronic anemia.
Overweight.
Renal calculi.
Laparoscopic cholecystectomy 07/2020. Bilateral ureteroscopy with lithotripsy of the right renal stone and clearing of left renal pelvic fungal ball. Laminectomy. .
Plan
Presentation this admission with lethargy. Found to be hypercapnic.
Discharged from on 08/25/23 after emergent bronchoscopy performed 08/18/2023 with some mucous plugs removed
ABG on presentation: 7.24 -54 -206 prior ABG 7.2 -55, 7.13 -68
Family notes she has been on vent during the day prior to admission.
CXR 08/30 with similar appearance-no significant atelectasis.
Most recent download report from [facility] 08/16/23 showing usage 9.3 avg hours - MV 5.7 L/min - RR 23 - IPAP/EPAP 12.6/4.9 cm water - Avg VTe 249.1 - leak 32.5 L/min
Settings: Mode S, IPAP 13 EPAP 5
-
In the last few weeks, has noticed decline in TV to <200 on avg nightly
Not sure how settings were changed as she should have been on AC-equivalent TV 350/PS 8/40%/PEEP 5 per last office note
Symptoms resolved after being placed on ventilator here in the hospital.
Will need to make sure her ventilator settings are home are adjusted as above.
Will need to discuss with her [employer] to adjust ventilator settings. Prior to discharge. --> I asked if he could bring in patient;s Trilogy machine here so that we can place pt onto this prior to discharge to assure she is tolerating it
with stable blood gas measurements and adequate SpO2 and VTe.
Continue mechanical ventilation ATC today, and tomorrow can try PS on PS5, PEEP of 8.
Continue with Mucomyst and nebulizers as needed/airway clearance
Continue with mucolytics
CPAP/pressure support and trach collar weans--okay to use pressure support today. Will avoid trach collar for now.
Aspiration precautions
Routine tracheostomy tube care continues
I will Rx her a sport bed and advised RT to suction often with cofflator through the trach; ok to change mucomyst and Duonebs from q6hr to TID, and will obtain serial CXR to assure her L-sided atelectasis improves --> her CXR from 2100 last night
showed improvement of her left-sided complete whiteout. However she still continues to have left-sided atelectasis, and if CXR tomorrow morning does not show improvement despite being on PEEP of 8 throughout all day/night today, then I will perform
bronchoscopy tomorrow for pulmonary toilet purposes.
Discontinued antibiotics on 2023: Afebrile. Cultures negative. Fever again this AM (09/04) --> ABx restarted with cefepime; check sputum Cx, follow up repeat BCx X2 (collected today)
? Positive blood culture suspect contaminant
Follow-up blood cultures negative
Monitor off antibiotic
Discussed with Dr. Yuan
Recurrent microaspiration also has been contemplated in the past. She has been evaluated by speech therapy multiple times in the past. Diet has been modified.
Primary team ordered video barium swallow--> unfortunately patient is not safe to be placed back onto trach collar at this time. Harmonyff placed by primary team and will need to evaluate this daily; she may end up needing G-tube prior to discharge
if unable to be weaned back down to trach collar during the day
ENT consult placed by me to evaluate her tracheostomy given occasional reduction in TVe; unknown if the tracheostomy cuff is dysfunctional or she needs a different size. Dr. Lindquist will evaluate the patient tomorrow (09/05)
Anemia: Transfused on 09/01/2023 + 09/03/2023 (1 U PRBC each day)
trend Hb and transfuse as needed to keep >7g/dL
Follow renal function
I/Os, daily weights
DVT prophylaxis-on heparin
Early mobilization/bedside range of motion-baseline wheelchair-bound and ambulatory dysfunction
The patient was last seen in the pulmonary office by Kalpana Mobley NP 06/01/2023 and has an appointment 09/07/2023 at 10:30 AM --> this will likely need to be re-scheduled as I doubt she will be discharged over next 48 hrs
Can eval for discharge planning once Trilogy issue resolved
Total time spent today was 50 minutes for this encounter. Time includes reviewing laboratory test/imaging results, reviewing pertinent medical records, obtaining and reviewing medical history, performing an appropriate exam, ordering medications,
tests and procedures. Time also includes documentation of this encounter, coordinating patient care and communicating with other healthcare professionals. Total time does not include separately billed tests performed on this date of service.

Diagnostic Data:
CXR 04-27, reviewed, L basilar atelectasis
CXR 04-19, resolved total L atelectasis, currently back to chronic L basilar atelectasis. New tracheostomy
CXR 04-16, portable, L basilar atelectasis
CXR 04/11/22- 1. Complete opacification of the left hemithorax, likely on the basis of a large pleural effusion and compressive atelectasis upon the left lung. Mild right basilar pneumonia suspected
Chest x-ray 08/17/2023-near complete opacification throughout the left Jovanni thorax
Echocardiogram 01/10/22-EF 60-65%, no significant valvular disease, small pericardial effusion
Echocardiogram 03/22/22: Normal left ventricular chamber size. Normal left ventricular systolic�function. Normal regional wall motion. Normal left ventricular wall thickness.�Left ventricular ejection fraction is 60-65%. Mild tricuspid
regurgitation.�Small to moderate pericardial effusion without evidence of hemodynamic�compromise.�Compared to the previous echo Dec 2021, there is no significant change.
CT CHEST 04/11/22- �A moderate to large left pleural effusion and complete collapse/atelectasis of the left lung account for the left hemithorax opacification on the prior chest radiograph. Findings are in part likely secondary to mucous plugging
given the presence of opacification of the left mainstem bronchus and left upper and lower lobe bronchi, patchy opacifications right middle and lower lobe suspicious for pneumonia, moderate right pleural effusion and ill-defined sclerotic lesion
T12, osseous metastasis not completely excluded
CT CHEST 03/22/22 - There is no CT evidence for pulmonary embolism. No aortic dissection.There are extremely large bilateral pleural effusions right greater than left and associated bilateral consolidation most prominent in the left lower
lobe.Cardiomegaly. Increased pericardial effusion.
CT chest 08/17/2023-occluded left mainstem bronchus presumably mucous plugs with complete atelectasis left lung moderate size left pleural effusion, small to moderate right pleural effusion
VSE 04/28/22: No aspiration. Laryngeal penetration with cough with thin liquids by cup.
Spirometry 09/09/21-FEV1 790 mL-36%, FVC 790 mL 27%. Some difficulties with maneuver and thus may offer unreliability. Severe restriction.�������
PFT 02/08/22-FVC 1.01/30%, FEV1 0.70/35%, ratio 69%, unable to perform lung volumes and diffusing capacity.
Subjective Data
-
Date of Service:
Date of Service: September 05, 2023
Chief Complaint: Pulmonary Follow Up (Acute respiratory failure/mucous plugging.)
Subjective:
Patient seen and evaluated today at bedside. She spiked a fever this morning to 102 �F. Blood gas this morning shows she is having metabolic and respiratory acidosis with pH 7.24, pCO2 44. She is sleeping when I saw her but easily arousable,
answering questions appropriately. at bedside. Currently on ventilator via AC/CMV at settings 14/450/40%/5 with peak pressure 30, breathing at 17 breaths/min and VTe of 480 cc. SpO2 was 98%. She denies chest pain, headache, fevers or
chills.
Review of Systems
General: Other (Negative unless mentioned above)
Objective Data
Data Reviewed
Vital Signs / I&O / Oxygen:
Vital Signs
Temp Pulse Resp BP Pulse Ox
99.6 F 104 24 161/79 98
09/05/23 11:39 09/05/23 10:00 09/05/23 10:00 09/05/23 08:00 09/05/23 10:00
Intake and Output
09/04/23 09/05/23 09/06/23
06:59 06:59 06:59
Intake Total 250 / 250 600 / 600
Output Total 900 / 900
Balance 250 / 250 -300 / -300
SaO2 [A/C] 96
SaO2 98
Physical Exam
General: Respiratory Distress (n) and Comfortable
HEENT: Normocephalic, Anicteric and Tracheotomy
Cardiovascular: S1-S2, Peripheral Edema (+1 lower extremity edema) and Other (Tachycardic)
Respiratory: Wheeze (Negative), Crackles (Bilaterally), Rhonchi (Bilaterally (L >R)) and Non-Labored Respirations
GI: Soft, Non Distended, Non Tender and Normal Bowel Sounds
Neurology: Awake and Other (Confused at times)
Skin: Warm and Dry
Labs/Micro/Reports
Lab Data
09/04/23 05:37
09/03/23 04:39
Microbiology
08/31/23 14:39 Blood/Venous Blood Culture - Preliminary
No Growth in 4 days- Final report to follow
08/31/23 14:39 Blood/Venous Blood Culture - Preliminary
Lactobacillus casei
08/31/23 14:39 Blood/Venous Gram Stain - Preliminary
09/01/23 03:39 Nose MRSA Screen - Final
No Methicillin Resistant Staphylococcus aureus isolated.
[2023-09-05] MEDS: STERILE WATER FOR INJECTION 10 ML IV ×2 (09:12→23:08)
[2023-09-05] MEDS: MAXIPIME 1000 MG IV ×2 (09:13→23:08)
[2023-09-05] MEDS: D5/0.45%NACL 1000 IV (09:13)
[2023-09-05 09:37] LABS: COVID-19 Antigen Negative (Negative)
[2023-09-05] MEDS: MUCINEX PO ×2 (09:52→19:42)
[2023-09-05] MEDS: FEOSOL PO (09:52)
[2023-09-05] MEDS: LOPRESSOR PO (09:52)
[2023-09-05] MEDS: ASPIR LOW (ENTERIC COATED) PO (09:52)
[2023-09-05] MEDS: SODIUM BICARBONATE PO (09:53)
[2023-09-05] MEDS: NORVASC PO (09:53)
[2023-09-05] MEDS: VITAMIN D3 (cholecalciferol) PO (09:53)
[2023-09-05] MEDS: VITAMIN B-12 PO (09:53)
--- NOTE | 2023-09-05 11:10 | W.PN.UPDATE ---
Addendum entered and electronically signed by SATINDER Foreman 09/05/23 16:42:
Xray confirms placement ok to use DHT
Addendum entered and electronically signed by SATINDER Foreman 09/05/23 15:11:
Pt pulled out DHT -- replaced at 60-65cm left nare without difficulty. confirmed with insufflation. Will add b/l mitts and check repeat X ray for placement
Original Note:
Update Note
Progress Note Update
DHT placed right nare at 60-65cm without difficulty confirmed with air insufflation. Will check abd X ray to confirm placement.
--- NOTE | 2023-09-05 11:14 | W.PN.HOSP.TC ---
Addendum entered and electronically signed by Helena Bishop MD 09/06/23 07:39:
stage 2 and stage 3 PI sacrum
Original Note:
Today's Communication/Plan
-
Patient with fever of 102-rectal this morning
Likely sources respiratory
Chest x-ray reviewed atelectasis/pneumonia
Speech has not been able to work with her to see if she can swallow.
Unclear if she will require bronchoscopy.
Clearly the settings for trilogy was not working at home or she needed more hours at home it is unclear what led to her repeated hospitalizations.
Will defer to pulmonary regarding management and plan.
Assessment / Plan
Assessment / Plan
62-year-old female with chronic tracheostomy uses ventilator at night and trach collar during the day. She was admitted recently and was discharged on 08/25/2023 but she was admitted with acute on chronic hypoxic hypercapnic respiratory failure with
opacification of the left hemithorax. Patient underwent bronchoscopy on 08/18/2023 mucous plugs removed from the left. BAL grew Proteus and completed 7-day course of Unasyn per ID. She also had CHINTAN with CKD stage IV FLAVIO inhibitor was held.
Ultrasound of the kidney showed bilateral renal disease. She comes back with decreased responsiveness.
09/01/23 03:39 Nose MRSA Screen - Final
No Methicillin Resistant Staphylococcus aureus isolated.
08/31/23 14:39 Blood/Venous Blood Culture - Preliminary
Positive culture in progress
08/31/23 14:39 Blood/Venous Gram Stain - Preliminary
08/31/23 14:39 Blood/Venous Blood Culture - Preliminary
No Growth in 24 hours- Final report to follow
08/31/23 14:39 Urine Urine Culture - Final
No Significant Growth
CXR:
1). Mild parenchymal airspace disease at the right lung base may be atelectasis or interstitial pneumonia
2). Confluent pleural parenchymal airspace disease and retrocardiac left lung base is consistent with left-sided pleural effusion with underlying left lower lobe atelectasis
Echo 08/18/2023-normal LV size and systolic function. Ejection fraction 60 to 65%. Mild concentric LVH. Normal diastolic function. Normal RV size and function. Mild TR. Pulmonary pressure 30 cm of mercury. Small pericardial effusion without
hemodynamic compromise
Patient is awake , able to communicate but confused
On the ventilator
Cardiovascular system S1-S2 appreciated
Chest decreased breath sounds at bases few rales on the right
No pedal edema
#Acute TME on admission-unclear reason, possible infection given fever today
Possible vent settings at home may need to be changed. She is on IPAP 13 EPAP at 5 at home
RT also brought up a good point if patient has a trach leak. Will discuss with Pulm and see if ENT needs to evaluate.
Video swallow evaluation when she can follow directions
Now again with TME am 09/04/23
EEG, CT of the head all negative
With fever restart antibiotics after cultures obtained
#Fever-likely respiratory source
Consider bronchoscopy given atelectasis/pneumonia
Treat cultures
Blood cultures
Restart antibiotics-cefepime
ID eval
#Acute on chronic hypercapnic/hypoxemic respiratory failure:
-With acute respiratory acidosis
-Recently the patient's tidal volume has decreased to an average of less than 200cc nightly (will be rectified with [facility]). May need Trilogy use 10/10.
-pulmonary following
-On mechanical ventilation now
#One set of BC with lactobacillus Casei -Likely contaminant
#Anemia of chronic disease and Fe deficiency:
-s/p 2U pRBCs (on 09/01/23 and 09/03/23)
#Positive LILIAN Screen-OP Rheum Eval.
#CKD4, Cr at baseline
#DM2: cont SSI/accuchecks IV fluids D5 and half-normal saline while n.p.o.. Lantus held
#Hx of small to moderate pericardial effusion
#Essential hypertension: cont Norvasc/doxazosin.
#Hyperlipidemia: Continue statin
#Coronary artery disease status post angioplasty: cont ASA/BB
#h/o C. diff
#COVID pneumonia 2019 with ECMO and ventilator and 3-month hospital stay at [facility]
#Ambulatory dysfunction wheelchair-bound since June 2019
#Spinal stenosis
#Overweight per BMI criteria
#Hypoalbuminemia
#Nutrition-will place Dobbhoff tube and start tube feeds
#FULL CODE
#DVT prophylaxis-Heparin
Discussed with at bedside
Discussed with nursing at bedside
Medically complicated
Discussed with pulmonary
Time 53 min
Anticipated Discharge: > 48 hours
Subjective/Interval History
-
Date of Service: September 05, 2023
Objective Data
-
Vital Signs:
Vital Signs
Temp Pulse Resp BP Pulse Ox
100.1 F 104 24 161/79 98
09/05/23 10:26 09/05/23 10:00 09/05/23 10:00 09/05/23 08:00 09/05/23 10:00
I&O
09/04/23 09/05/23 09/06/23
06:59 06:59 06:59
Intake Total 250 / 250 600 / 600
Output Total 900 / 900
Balance 250 / 250 -300 / -300
--- NOTE | 2023-09-05 11:15 | PTCARENOTE ---
Magali Robbins placed dubhoff tube without incident [facility]
[2023-09-05 11:43] LABS: Glucose - Point of Care 135 mg/dl (70-99)
--- NOTE | 2023-09-05 13:15 | PTCARENOTE ---
Pt peep setting to 8, ENT consult for upsizing trach . Awaiting ammunition storekeeper recommendation for TF
--- NOTE | 2023-09-05 14:52 | PTCARENOTE ---
on rounds pt noted to have pulled out dung Robbins aware will come back up . radha put mitts on pt
--- NOTE | 2023-09-05 15:10 | PTCARENOTE ---
Nieves now in l nare awaiting CXR for placement
--- NOTE | 2023-09-05 15:55 | CON.ID ---
Consultation
-
Date/Time Consultation Requested: 09/05/2023 09:06
Date/Time Consultation Performed: 09/05/2023 1531
Requesting Provider: Dr. Bishop
Performing Provider: Dr. Pelletier
Reason for Consultation: Fever
Chief Complaint / Past History
History of Present Illness
Shruti Rowe is a 62-year-old female being evaluated at the request of Dr. Bishop in regards to fever. History is obtained from chart review, along with family interview. Patient is currently vent dependent, and limited history is available from her.
The patient has had significant respiratory issues since developing COVID in 2019, which at that time required ECMO therapy. Last year because of CO2 retention a tracheostomy was placed. She currently is on p.m. ventilation support. The patient
is known to the Infectious Diseases service, having been seen earlier in the month for mucous plugging.
The patient presented to the emergency room on 08/30 secondary to approximately 2 days of increased lethargy, decreased appetite and increased sleeping. Per reviewed notes these were often symptoms of elevated CO2 levels. At presentation, she was
placed on empiric antibiotics (cefepime) which was discontinued on 09/02. This morning, the patient developed a fever to 102 degrees, and antibiotics were reinitiated over concern for possible pulmonary source. Infectious Diseases is asked to
comment upon further antimicrobial therapy.
Past History
Additional Past Medical History:
Chronic respiratory failure following COVID (2019); with Hx ECMO, current PM vent support
CAD
HTN
DM
Anemia
Dyslipidemia
Additional Past Surgical History:
Cardiac catheterization
Cholecystectomy
Allergy History:
clarithromycin Allergy (Verified 08/31/23 14:28)
TACHYCARDIA
Medications Reviewed: Yes
Current Antibiotics:
Cefepime 1 g IV every 12 hours
Social History
Tobacco: Non-Smoker
Drug: None
Personal:
Living: With Family
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
Family History
Family History: Not Pertinent
Review of Systems
Vital Signs
Temp Pulse Resp BP Pulse Ox
100.0 F 96 20 152/61 98
09/05/23 15:34 09/05/23 15:16 09/05/23 15:16 09/05/23 15:16 09/05/23 15:16
Physical Exam
Physical Exam
Constitutional: No Acute Distress, Comfortable, Chronically Ill and Non-toxic
Head: Normocephalic and Other (Nasal dobhoff in place)
Eyes: Pupils Equal, Pupils Round, No Conjunctival Hemorrhage and Sclera Anicteric
Pharynx: Other (Trach in place to vent)
Oral: No Thrush and No Ulcers
Cardiovascular: Regular Rate and S1/S2; Negative S3/S4 or Murmur
Pulmonary: Rhonchi (Few; scattered), Coarse and Non Labored
Gastrointestinal: Soft, Non Tender, Non Distended, Normal Bowel Sounds, No Rebound and No Guarding
Extremities: Edema; Negative Cyanosis or Erythema
Skin: Warm and Dry; Negative Rash
Neurological: Awake and Alert
Psychological: Calm
Lines: CVP (right groin; placed 08/31/23)
.
Lab / Diagnostic Study Results
09/04/23 05:37
09/03/23 04:39
Abs Immat Gran (auto) 0.0 10^3/uL (0-0.05) 09/01/23 03:39
Absolute Neuts (auto) 5.7 10^3/uL (1.4-6.5) 09/01/23 03:39
Absolute Lymphs (auto) 0.7 10^3/uL (1.2-3.4) L 09/01/23 03:39
Absolute Monos (auto) 0.3 10^3/uL (0.1-0.6) 09/01/23 03:39
Absolute Basos (auto) 0.0 10^3/uL (0-0.2) 09/01/23 03:39
Immature Gran % 0.4 % (0-0.5) 09/01/23 03:39
Neutrophils % 84.0 % (42.2-75.2) H 09/01/23 03:39
Lymphocytes % 11.0 % (20.5-51.1) L 09/01/23 03:39
Monocytes % 3.9 % (1.7-9.3) 09/01/23 03:39
Eosinophils % 0.6 % (0-6) 09/01/23 03:39
Basophils % 0.1 % (0-2) 09/01/23 03:39
PT 13.4 Sec (11.4-14.6) 08/31/23 14:39
INR 1.02 08/31/23 14:39
Lactic Acid Cancelled 08/31/23 18:45
Procalcitonin 0.07 ng/ml (0.0-0.25) 08/31/23 20:18
Ur Squamous Epith Cells 11-15 /LPF (Few) 08/31/23 14:39
Microbiology Results
Micro:
08/31/23 14:39 Blood Culture - Final
Blood/Venous No Growth - Final Report
09/05/23 13:11 Respiratory Culture - Pending
Tracheal Aspirate Gram Stain - Pending
09/05/23 09:11 Blood Culture - Pending
Blood/Venous
09/05/23 09:00 Blood Culture - Pending
Blood/Venous
08/31/23 14:39 Blood Culture - Preliminary
Blood/Venous Lactobacillus casei
Gram Stain - Preliminary
09/01/23 03:39 MRSA Screen - Final
Nose No Methicillin Resistant Staphylococcus aureus isolated.
08/31/23 14:39 Urine Culture - Final
Urine No Significant Growth
Imaging:
09/05/2023 CXR (portable): The left hemidiaphragm is again obscured suggesting opacification such as atelectasis and/or pneumonia and small left pleural effusion. Overall widespread pulmonary interstitial markings are again slightly prominent. There
is no pneumothorax or significant right pleural effusion.
08/19/2023 Renal ultrasound: Severe bilateral renal disease (left > right), increased since 2021. 4.8 mm nonobstructing left intrarenal calculus noted. No evidence for hydronephrosis.
Assessment / Plan
Episode of fever; source unclear
- lung? left femoral line? abdomen? urine?
CKD
Chronic respiratory failure following COVID (2019); with Hx ECMO, current PM vent support
CAD
HTN
DM
Anemia
Recommendations:
Respiratory culture currently pending.
Continue with cefepime for the present. Dose is currently adjusted for renal insufficiency.
Monitor white count and temperature curve.
Blood cultures currently in progress. Will continue to monitor.
Currently d#6 of (L) femoral CVC. PICC line, and and femoral line removal, previously ordered by Hospitalist.
Overall look guarded given multiple medical comorbidities.
Care Review
Plan reviewed with: Physician (Hospitalist)
[2023-09-05] MEDS: LIPITOR PO (16:02)
[2023-09-05 17:49] LABS: Glucose - Point of Care 102 mg/dl (70-99)
[2023-09-05] MEDS: LOPRESSOR 50 MG PO (19:41)
[2023-09-05] MEDS: SODIUM BICARBONATE 650 MG PO (19:42)
[2023-09-05] MEDS: CARDURA 1 MG PO (19:42)
[2023-09-05] MEDS: LANTUS 0.1 UNITS SC (23:08)
[2023-09-05 23:18] LABS: Glucose - Point of Care 110 mg/dl (70-99)
[2023-09-06] VITALS (27 sets, daily range): BP systolic 16–162; BP diastolic 56–137
--- NOTE | 2023-09-06 00:34 | PTCARENOTE ---
received patient from day shift. pt is AAOx2-3, forgetful at times. able to make needs known, able to mouth words or whisper. pt on vent a/c at this time. 14/40%/. pt suctioned at few times during shift. q2t. pt started on tube feeds during
dayshift going at 20ml/hr with 25ml/hr flush. per order, no indication to increase feeds and how often. notified covering CALL OR CONTACT CENTRE OPERATOR- will def to dayshift personal caregiver to decide in AM. care ongoing.
--- NOTE | 2023-09-06 03:52 | DOWNTIME ---
There was a [employer] Client Ios Programmer Downtime on 09/06/2023 from 0100 to 09/06/2023 at 0337. Downtime documentation of patient's care, including medication administrations, has been reconciled in the electronic record per guidelines. Refer to the
patient's paper chart under the miscellaneous tab to see printed paper medication records and downtime forms.
[2023-09-06 04:40] LABS: Hematocrit 25.6 % (37.0-47.0); Hemoglobin 8.6 g/dL (12.0-16.0); Mean Corp Hgb Conc. 33.6 g/dL (33.0-37.0); Mean Corpuscular Volume 86.2 fL (81.0-99.0); Mean Platelet Volume 10.8 fL (7.4-10.4); Platelet Count 162 10^3/uL (130-400); Red Blood Cell Count 2.97 10^6/uL (4.20-5.40); Red Cell Dist. Width 15.8 % (11.5-14.5); Venous Blood Gas B.E. -6.7 mmol/L (-4 to +4); Venous Blood Gas HCO3 19.2 mmol/L (22-27); Venous Blood Gas O2 Sat % 99.7 %; Venous Blood Gas pCO2 39 mmHg (35-48); Venous Blood Gas pO2 127 mmHg (30-50); White Blood Cell Count 6.1 10^3/uL (4.8-10.8)
[2023-09-06 05:07] LABS: Blood Urea Nitrogen 27 mg/dl (7-17); Calcium 8.2 mg/dl (8.4-10.2); Carbon Dioxide 19 mmol/L (22-30); Chloride 114 mmol/L (98-107); Estimated Creatinine Clearance 23 ml/min; Glucose 102 mg/dl (70-99); Potassium 3.2 mmol/L (3.5-5.1); Sodium 140 mmol/L (135-145); eGFR 24.42
[2023-09-06 05:30] LABS: Glucose - Point of Care 99 mg/dl (70-99)
[2023-09-06] MEDS: NOVOLOG FLEXPEN-LOW RESISTANCE SC ×4 (05:35→23:15)
--- NOTE | 2023-09-06 05:43 | PTCARENOTE ---
pt remains in b/l mitts at this time d/t confusion and pulling at dobhoff. left nare dobhoff remains intact. pt with confusion waxing and waning. pt knows she is in the hospital but thinks she is in [facility]. reoriented. foam on sacrum
changed. care ongoing.
[2023-09-06] MEDS: HEPARIN 5000 UNITS SC ×3 (07:49→23:16)
[2023-09-06] MEDS: VITAMIN B-12 1000 MCG PO (07:49)
[2023-09-06] MEDS: DESENEX/MITRAZOL/ZEASORB 1 APPLIC TOPICAL ×2 (07:49→19:29)
[2023-09-06] MEDS: VITAMIN D3 (cholecalciferol) 25 MCG PO (07:50)
[2023-09-06] MEDS: LOPRESSOR 50 MG PO ×2 (07:50→19:29)
[2023-09-06] MEDS: FEOSOL 325 MG PO (07:50)
[2023-09-06] MEDS: NORVASC 10 MG PO (07:50)
[2023-09-06] MEDS: KCL ELIXIR 40 MEQ TUBE (07:50)
[2023-09-06] MEDS: ASPIR LOW (ENTERIC COATED) 81 MG PO (07:50)
[2023-09-06] MEDS: SODIUM BICARBONATE 650 MG PO ×2 (07:50→19:30)
--- NOTE | 2023-09-06 07:57 | CON.MD ---
Consultation - Medical
-
trach evaluation
62 yo c chronic trach for resp insufficiency presents c fever, resp failure
Dxed with pneumonia
Concern over low volumes with present trach, intermittent leaking
PE - Pt resting comfortably on vent
Trach site clean and dry
Has #6 Romero
Endoscopy through trach shows trach in good position , but does somewhat abut posterior tracheal wall
Distal trachea clear to fran
A/P Chronic trach
Present trach should be appropriate size for her
Leaking may be positional, and can also be due to poor lung function with difficult ventilation &/or tracheomalacia
Would try to elevate underneath trach for better positioning , to keep trach from abutting posterior wall
Potentially could place longer trach if ventilation becomes more of an issue
[2023-09-06] MEDS: MUCINEX PO (08:06)
[2023-09-06] MEDS: MUCOMYST 10% 4 ML INH ×2 (08:09→20:28)
[2023-09-06] MEDS: DUONEB 3 ML INH ×3 (08:10→20:30)
--- NOTE | 2023-09-06 08:27 | W.PN.ID1 ---
Date of Service
Date of Service: September 06, 2023
Today's Communication
Continue abx.
Assessment / Plan
Episode of fever; source unclear
- temps down.
CKD
Chronic respiratory failure following COVID (2019); with Hx ECMO, current PM vent support
CAD
HTN
DM
Anemia
Recommendations:
Respiratory culture currently pending.
Continue with cefepime for the present. Dose is currently adjusted for renal insufficiency.
Monitor white count and temperature curve.
Blood cultures currently in progress. Will continue to monitor.
- prior cultures (08/30) with Lactobacillus; likely contaminate
Currently d#7 of (L) femoral CVC. Femoral line removal previously ordered by Hospitalist.
Overall look guarded given multiple medical comorbidities.
Chief Complaint
-: Fever
Subjective / Review of Systems
Remains on vent at present.
Vital Signs / Physical Exam
Vital Signs
Vital Signs
Temp Pulse Resp BP Pulse Ox
98.6 F 77 20 157/62 100
09/06/23 07:20 09/06/23 08:16 09/06/23 08:16 09/06/23 06:00 09/06/23 08:16
Physical Exam
Constitutional: No Acute Distress, Comfortable, Chronically Ill and Non-toxic
Head: Other (Nasal dobhoff in place)
Eyes: No Conjunctival Hemorrhage and Sclera Anicteric
Oropharyngeal: Other (Tracheostomy in place.)
Cardiovascular: Regular Rate and S1/S2; Negative S3/S4
Pulmonary: Coarse, Non Labored and Other (Trach collar in place. On vent.); Negative Wheezes
Gastrointestinal: Soft, Non Tender and Non Distended
Extremities: Edema; Negative Cyanosis or Erythema
Neurological: Awake and Alert
Psychological: Calm
Objective Data
Lab Data
Lab Results
09/06/23 04:30
09/06/23 04:30
PT 13.4 Sec (11.4-14.6) 08/31/23 14:39
INR 1.02 08/31/23 14:39
APTT 37.5 Sec (23.4-35.0) H 08/31/23 14:39
Estimated Creat Clear 23 ml/min 09/06/23 04:30
Lactic Acid Cancelled 08/31/23 18:45
Total Bilirubin 0.5 mg/dl (0.2-1.3) 08/31/23 20:18
AST 14 U/L (14-36) 08/31/23 20:18
ALT < 10 U/L (0-35) 08/31/23 20:18
Alkaline Phosphatase 63 U/L (38-126) 08/31/23 20:18
Most recent labs reviewed.
Micro Results:
09/05/23 13:11 Respiratory Culture - Pending
Tracheal Aspirate Gram Stain - Preliminary
08/31/23 14:39 Blood Culture - Final
Blood/Venous No Growth - Final Report
09/05/23 09:11 Blood Culture - Pending
Blood/Venous
09/05/23 09:00 Blood Culture - Pending
Blood/Venous
08/31/23 14:39 Blood Culture - Preliminary
Blood/Venous Lactobacillus casei
Gram Stain - Preliminary
09/01/23 03:39 MRSA Screen - Final
Nose No Methicillin Resistant Staphylococcus aureus isolated.
08/31/23 14:39 Urine Culture - Final
Urine No Significant Growth
Imaging:
09/05/2023 CXR (portable): The left hemidiaphragm is again obscured suggesting opacification such as atelectasis and/or pneumonia and small left pleural effusion. Overall widespread pulmonary interstitial markings are again slightly prominent. There
is no pneumothorax or significant right pleural effusion.
08/19/2023 Renal ultrasound: Severe bilateral renal disease (left > right), increased since 2021. 4.8 mm nonobstructing left intrarenal calculus noted. No evidence for hydronephrosis.
[2023-09-06] MEDS: MAXIPIME 1000 MG IV ×2 (10:11→23:16)
[2023-09-06] MEDS: STERILE WATER FOR INJECTION 10 ML IV ×2 (10:11→23:16)
--- NOTE | 2023-09-06 10:15 | W.PN.HOSP.TC ---
Today's Communication/Plan
-
Continue Mucomyst and mucolytic's and suction
Pulmonary toileting as much as we can
Continue antibiotics
Await final sputum cultures
Wean ventilator as tolerated
Assessment / Plan
Assessment / Plan
62-year-old female with chronic tracheostomy uses ventilator at night and trach collar during the day. She was admitted recently and was discharged on 08/25/2023 but she was admitted with acute on chronic hypoxic hypercapnic respiratory failure with
opacification of the left hemithorax. Patient underwent bronchoscopy on 08/18/2023 mucous plugs removed from the left. BAL grew Proteus and completed 7-day course of Unasyn per ID. She also had CHINTAN with CKD stage IV FLAVIO inhibitor was held.
Ultrasound of the kidney showed bilateral renal disease. She comes back with decreased responsiveness.
Echo 08/18/2023-normal LV size and systolic function. Ejection fraction 60 to 65%. Mild concentric LVH. Normal diastolic function. Normal RV size and function. Mild TR. Pulmonary pressure 30 cm of mercury. Small pericardial effusion without
hemodynamic compromise
Patient is awake , able to communicate ( says she mad at me for ordering Dobhoff)
On the ventilator
Cardiovascular system S1-S2 appreciated
Chest decreased breath sounds at bases few rales on Bilaterally
No pedal edema
#Acute TME on admission and on 09/04/23
EEG, CT of the head all negative
Possible vent settings at home may need to be changed. She is on IPAP 13 EPAP at 5 at home
ENT evaluation appreciated. Leaking may be positional. If difficult with ventilation then could consider a longer trach
Video swallow evaluation when patient can be on a trach collar
Fever-likely respiratory source
Consider bronchoscopy given atelectasis/pneumonia- if not better
With Mucomyst she started getting more secretions out.
Also added Robitussin through the tube
Respiratory cultures with gram-negative bacilli-identification and sensitivities pending
PT of the chest with cofflator
Blood cultures negative so far
Restarted antibiotics-cefepime
ID eval appreciated
#Central line-PICC team could not get a central line therefore she has a femoral line will request IR to see if they can place an IJ
#Acute on chronic hypercapnic/hypoxemic respiratory failure:
-With acute respiratory acidosis
-Recently the patient's tidal volume has decreased to an average of less than 200cc nightly (will be rectified with [employer]).
-pulmonary following
-On mechanical ventilation now
-Was on CPAP for 4 hours 09/05/23 per RT
#One set of BC with lactobacillus Casei -Likely contaminant
#Anemia of chronic disease and Fe deficiency:
-s/p 2U pRBCs (on 09/01/23 and 09/03/23)
#Hypokalemia- Replace
#Positive LILIAN Screen-OP Rheum Eval.
#CKD4, Cr at baseline
#DM2: cont SSI/accuchecks Lantus 10 units
#Hx of small to moderate pericardial effusion
#Essential hypertension: cont Norvasc/doxazosin.
#Hyperlipidemia: Continue statin
#Coronary artery disease status post angioplasty: cont ASA/BB
#h/o C. diff
#COVID pneumonia 2019 with ECMO and ventilator and 3-month hospital stay at [place]
#Ambulatory dysfunction wheelchair-bound since June 2019
#Spinal stenosis
#Overweight per BMI criteria
#Hypoalbuminemia
#Nutrition- Dobbhoff tube feeds
#FULL CODE
#DVT prophylaxis-SC Heparin
Discussed with and daughter at bedside
Discussed with nursing
D/W RT at bed side
Medically complicated
Time 54 min
Anticipated Discharge: > 48 hours
Subjective/Interval History
-
Date of Service: September 06, 2023
Objective Data
-
Labs:
Laboratory Results
09/06/23
04:30
WBC 6.1
Hgb 8.6 L
Hct 25.6 L
Plt Count 162
Sodium 140
Potassium 3.2 L
Chloride 114 H
Carbon Dioxide 19 L
BUN 27 H
Creatinine 2.2 H
Glucose 102 H
Calcium 8.2 L
Vital Signs:
Vital Signs
Temp Pulse Resp BP Pulse Ox
98.6 F 77 20 157/62 99
09/06/23 07:20 09/06/23 08:16 09/06/23 08:16 09/06/23 06:00 09/06/23 08:19
I&O
09/05/23 09/06/23 09/07/23
06:59 06:59 06:59
Intake Total 600 / 600 465 / 465
Output Total 900 / 900 250 / 250
Balance -300 / -300 215 / 215
--- NOTE | 2023-09-06 11:30 | RESPNOTE ---
patient with positional trach leak, causing vent alarms for low Ve, high RR. ENT to exchange trach to XL today. Bronch with Pulmonary later this afternoon.
--- NOTE | 2023-09-06 12:10 | W.PN.PUL3 ---
Today's Communication / Plan
-
BAL today --> follow up cultures + cytology + cell count with diff
check CXR post procedure
Continue chest PT with cofflator, Mucomyst + DuoNebs + sport bed
Abx restarted due to fever
Should try to remove her left femoral CVC and place midline or PICC as her femoral CVC has been there since 08/30 where it was placed in ER
Discuss with [employer] adjusting ventilator settings --> will see if family can bring in trilogy machine from home so that we can place pt onto this and assure she is stable before she goes back home
Swallowing evaluation --> deferred for now until we can get her back onto Tc during the day
Continue mechanical ventilation ATC today with PEEP at 8
ENT consult --> XLT #6 mercy schraderced today
Routine trach care
Assessment
-
Patient is a 62 year old F with history of chronic hypoxic/hypercarbic resp failure s/p trach, post COVID illness, who p/w CC shortness of breath. The patient was recently discharged from 08/25/23 for mucus plugging. Family states that on day of
admission, the patient had decreased responsiveness. She is placed on Trilogy at night/trach collar through the day. She has been sleeping more and less conversive. They have noticed her exhaled TV on Trilogy reporting on avg <200cc nightly. Her
baseline settings are TV 350/PS8/40%/5+. Per medics, the patient was initially on 15 L but desaturated to the 80s. She had to be bagged and her saturations did improve. She is placed on vent in ER and saturations are now improved. CXR appears
similar to prior. We are consulted for eval 09/01/23.
Impression:
Hypoxemic and hypercapnic respiratory failure due to recurrent mucous plug/left lung atelectasis
ABG 08/17/2023--52/59/7 0.24
Ventilator dependent respiratory failure
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
Status post emergent bronchoscopy at the bedside 08/18/2023-mucous plugs removed from the left
Pneumonia
Left pleural effusion
CHINTAN (Cr baseline 2.1)
Anemia-normocytic
Hypocalcemia
Hypernatremia
Metabolic and respiratory acidosis
Conditions present prior to admission:
Chronic hypercapnic/hypoxemic respiratory failure/chronic tracheostomy/nocturnal ventilation.
Severe Covid/ECMO 2019.
Diabetes.
Hypertension.
CAD/angioplasty 2020.
Recurrent UTI.
Ambulatory dysfunction/wheelchair-bound.
Chronic anemia.
Overweight.
Renal calculi.
Laparoscopic cholecystectomy 07/2020. Bilateral ureteroscopy with lithotripsy of the right renal stone and clearing of left renal pelvic fungal ball. Laminectomy. .
Plan
Presentation this admission with lethargy. Found to be hypercapnic.
Discharged from on 08/25/23 after emergent bronchoscopy performed 08/18/2023 with some mucous plugs removed
ABG on presentation: 7.24 -54 -206 prior ABG 7.2 -55, 7.13 -68
Family notes she has been on vent during the day prior to admission.
CXR 08/30 with similar appearance-no significant atelectasis.
Most recent download report from [facility] 08/16/23 showing usage 9.3 avg hours - MV 5.7 L/min - RR 23 - IPAP/EPAP 12.6/4.9 cm water - Avg VTe 249.1 - leak 32.5 L/min
Settings: Mode S, IPAP 13 EPAP 5
-
In the last few weeks, has noticed decline in TV to <200 on avg nightly
Not sure how settings were changed as she should have been on AC-equivalent TV 350/PS 8/40%/PEEP 5 per last office note
Symptoms resolved after being placed on ventilator here in the hospital.
Will need to make sure her ventilator settings are home are adjusted as above.
Will need to discuss with her [employer] to adjust ventilator settings. Prior to discharge. --> I asked if he could bring in patient's Trilogy machine here so that we can place pt onto this prior to discharge to assure she is tolerating it
with stable blood gas measurements and adequate SpO2 and VTe.
Continue mechanical ventilation ATC today, and every day we should attempt PS trials first on PS 5, PEEP of 8, then eventually CPAP 5/5.
Continue with Mucomyst and nebulizers as needed/airway clearance
Continue with mucolytics
CPAP/pressure support and trach collar weans--okay to use pressure support today. Will avoid trach collar for now.
Aspiration precautions
Routine tracheostomy tube care continues
I Rx her a sport bed and advised RT to suction often with cofflator through the trach; ok to change mucomyst and Duonebs from q6hr to TID, and will obtain serial CXR to assure her L-sided atelectasis improves --> her CXR from 2100 last night showed
improvement of her left-sided complete whiteout. However she still continues to have left-sided atelectasis --> CXR this AM shows persistent L-atelectasis. Will perform bronchoscopy today for pulmonary toilet purposes and BAL of LLL.
During the bronch today, there was a mucosal abnormality at her LLL at the secondary fran, which appeared white/shiny --> concern for dysplasia. Cytology sent from this region. She should obtain repeat CT Chest in 4-6 weeks, and consider repeat
bronchoscopy with biopsy haja if BAL shows artypical cells on cytopathology.
Discontinued antibiotics on 2023: Afebrile. Cultures negative. Fever again on AM of 09/04 --> ABx restarted with cefepime; follow up sputum Cx --> growing GNR (she has a Hx of proteus), follow up repeat BCx X2 (collected 09/04)
? Positive blood culture suspect contaminant
Follow-up blood cultures negative
Monitor off antibiotic
Discussed with Dr. Yuan
Recurrent microaspiration also has been contemplated in the past. She has been evaluated by speech therapy multiple times in the past. Diet has been modified.
Primary team ordered video barium swallow--> unfortunately patient is not safe to be placed back onto trach collar at this time. Dobbhoff placed by primary team and will need to evaluate this daily; she may end up needing G-tube prior to discharge
if unable to be weaned back down to trach collar during the day
ENT consult placed by me to evaluate her tracheostomy given occasional reduction in TVe; unknown if the tracheostomy cuff is dysfunctional or she needs a different size. Dr. Powell evaluated her today --> #[id number] placed today ([facility]); please make
sure that extra tracheostomy is at bedside.
Anemia: Transfused on 09/01/2023 + 09/03/2023 (1 U PRBC each day)
trend Hb and transfuse as needed to keep >7g/dL
Follow renal function
I/Os, daily weights
DVT prophylaxis-on heparin
Early mobilization/bedside range of motion-baseline wheelchair-bound and ambulatory dysfunction
IV access:
Left femoral triple-lumen catheter/CVC: Placed 08/31/2023 in ER
The patient was last seen in the pulmonary office by Kalpana Mobley NP 06/01/2023 and has an appointment 09/07/2023 at 10:30 AM --> this will likely need to be re-scheduled as I doubt she will be discharged over next 48 hrs
Can eval for discharge planning once Trilogy issue resolved
Total time spent today was 50 minutes for this encounter. Time includes reviewing laboratory test/imaging results, reviewing pertinent medical records, obtaining and reviewing medical history, performing an appropriate exam, ordering medications,
tests and procedures. Time also includes documentation of this encounter, coordinating patient care and communicating with other healthcare professionals. Total time does not include separately billed tests performed on this date of service.

Diagnostic Data:
CXR 04-27, reviewed, L basilar atelectasis
CXR 04-19, resolved total L atelectasis, currently back to chronic L basilar atelectasis. New tracheostomy
CXR 04-16, portable, L basilar atelectasis
CXR 04/11/22- 1. Complete opacification of the left hemithorax, likely on the basis of a large pleural effusion and compressive atelectasis upon the left lung. Mild right basilar pneumonia suspected
Chest x-ray 08/17/2023-near complete opacification throughout the left Jovanni thorax
Echocardiogram 01/10/22-EF 60-65%, no significant valvular disease, small pericardial effusion
Echocardiogram 03/22/22: Normal left ventricular chamber size. Normal left ventricular systolic�function. Normal regional wall motion. Normal left ventricular wall thickness.�Left ventricular ejection fraction is 60-65%. Mild tricuspid
regurgitation.�Small to moderate pericardial effusion without evidence of hemodynamic�compromise.�Compared to the previous echo Dec 2021, there is no significant change.
CT CHEST 04/11/22- �A moderate to large left pleural effusion and complete collapse/atelectasis of the left lung account for the left hemithorax opacification on the prior chest radiograph. Findings are in part likely secondary to mucous plugging
given the presence of opacification of the left mainstem bronchus and left upper and lower lobe bronchi, patchy opacifications right middle and lower lobe suspicious for pneumonia, moderate right pleural effusion and ill-defined sclerotic lesion
T12, osseous metastasis not completely excluded
CT CHEST 03/22/22 - There is no CT evidence for pulmonary embolism. No aortic dissection.There are extremely large bilateral pleural effusions right greater than left and associated bilateral consolidation most prominent in the left lower
lobe.Cardiomegaly. Increased pericardial effusion.
CT chest 08/17/2023-occluded left mainstem bronchus presumably mucous plugs with complete atelectasis left lung moderate size left pleural effusion, small to moderate right pleural effusion
VSE 04/28/22: No aspiration. Laryngeal penetration with cough with thin liquids by cup.
Spirometry 09/09/21-FEV1 790 mL-36%, FVC 790 mL 27%. Some difficulties with maneuver and thus may offer unreliability. Severe restriction.�������
PFT 02/08/22-FVC 1.01/30%, FEV1 0.70/35%, ratio 69%, unable to perform lung volumes and diffusing capacity.
Subjective Data
-
Date of Service:
Date of Service: September 06, 2023
Chief Complaint: Pulmonary Follow Up (Acute respiratory failure/mucous plugging.)
Subjective:
Patient seen and evaluated today at bedside. Afebrile overnight. She is awake, answering my questions and at bedside. I answered all of his questions as well. CXR today still showed left basilar opacification with atelectasis. Patient
denies chest pain, headache, abdominal pain, fevers or chills.
Review of Systems
General: Other (Negative unless mentioned above)
Objective Data
Data Reviewed
Vital Signs / I&O / Oxygen:
Vital Signs
Temp Pulse Resp BP Pulse Ox
98.6 F 69 16 138/60 99
09/06/23 07:20 09/06/23 10:00 09/06/23 10:00 09/06/23 10:00 09/06/23 11:50
Intake and Output
09/05/23 09/06/23 09/07/23
06:59 06:59 06:59
Intake Total 600 / 600 465 / 465
Output Total 900 / 900 250 / 250
Balance -300 / -300 215 / 215
SaO2 [A/C] 100
SaO2 99
Physical Exam
General: Respiratory Distress (n) and Comfortable
HEENT: Normocephalic, Anicteric and Tracheotomy
Cardiovascular: S1-S2 and Peripheral Edema (+1 lower extremity edema)
Respiratory: Wheeze (Negative), Crackles (Bilaterally), Rhonchi (Bilaterally (L >R)), Non-Labored Respirations and Other (Mechanical breath sounds heard bilaterally)
GI: Soft, Non Distended, Non Tender and Normal Bowel Sounds
Neurology: Awake and Other (Confused at times)
Skin: Warm and Dry
Labs/Micro/Reports
Lab Data
09/06/23 04:30
09/06/23 04:30
Microbiology
09/05/23 09:11 Blood/Venous Blood Culture - Preliminary
No Growth in 24 hours- Final report to follow
09/05/23 09:00 Blood/Venous Blood Culture - Preliminary
No Growth in 24 hours- Final report to follow
09/05/23 13:11 Tracheal Aspirate Respiratory Culture - Preliminary
Gram negative bacilli
09/05/23 13:11 Tracheal Aspirate Gram Stain - Preliminary
08/31/23 14:39 Blood/Venous Blood Culture - Final
No Growth - Final Report
08/31/23 14:39 Blood/Venous Blood Culture - Preliminary
Lactobacillus casei
08/31/23 14:39 Blood/Venous Gram Stain - Preliminary
[2023-09-06 12:15] LABS: Glucose - Point of Care 115 mg/dl (70-99)
--- NOTE | 2023-09-06 12:16 | W.PN.UPDATE ---
Update Note
Progress Note Update
asked to place longer trach
#6 extra long shiley placed
Endoscopy confirms trach in proper position, although still tends to abut posterior wall
Would continue with positioning to elevate trach from chest to sit more centered
otherwise, recheck as oupt every 3 mo or as needed
[2023-09-06] MEDS: ROBITUSSIN 200 MG TUBE ×3 (13:09→19:30)
[2023-09-06] MEDS: TYLENOL 1000 MG PO (13:09)
[2023-09-06] MEDS: SUBLIMAZE 50 MCG IV (14:41)
[2023-09-06] MEDS: VERSED 2 MG IV (14:42)
--- NOTE | 2023-09-06 15:23 | W.SUR.POST ---
Surgical Immediate Post Op
Note
Bedside Bronchoscopy Procedure
Pre Op Diagnosis: Left lung atelectasis; ventilator dependent respiratory failure
Post Op Diagnosis: Same as above
Procedure Performed: Bedside bronchoscopy using disposable bronchoscope
Primary Surgeon/Proceduralist: Dr. Epstein
Secondary Surgeons: N/A
Anesthesia: Fentanyl 50mcg x1 + versed 2mg IVP x1
Estimated Blood Loss: None
Fluids: N/A
Drains/Shunts: N/A
Specimens/Cultures: LLL BAL --> respiratory culture, fungus culture, AFB culture, cell count + differential, cytopathology
Doppler/Duplex/Angio (Y/N): N/A
Complications: N/A
Operative Findings: After signed consent was obtained from patient's , patient was sedated with fentanyl + Versed (see above), and preoxygenated with FiO2 raised to 100% on ventilator with remainder of vent settings the same. Disposable 5.8
mm bronchoscope was inserted into patient's tracheostomy. Tracheal tissue seen at the end of the tracheostomy, with slight bulging into the tracheostomy, and the bronchoscope was able to slide past towards the distal trachea. Fran was seen and
was softly angled, and was not sharp. There were thin secretions seen in the bilateral tracheobronchial tree which were suctioned; the right bronchial tree had no obvious abnormalities with all airways patent down to the segmental bronchus level.
The left tracheobronchial tree was evaluated and there was significant atelectasis seen in the left lower lobe with a mucosal abnormality seen at the left lower lobe secondary fran. Left upper lobe also appeared atelectatic which mainly affected
the lingula. A BAL was performed in the left lower lobe, instilling approximately 150 cc of room temperature NS 0.9%, with 45 cc of return. Return fluid was serosanguineous + cloudy. Patient desaturated easily during this procedure and I would
need to remove bronchoscope entirely from airway, which resolved her desaturations and she quickly recovered with SpO2 rising back to 98% before re-inserting bronchoscope. At the end of the procedure, the right bronchial tree remained patent as
well as a right-sided segmental bronchi, and the left-sided bronchial tree had some minor procedure related bleeding in the left mainstem bronchus + left lower lobe bronchus. The bronchoscope was removed entirely from the airway and the procedure
ended. There were no immediate complications.
[2023-09-06] MEDS: MUCOMYST 10% INH (15:27)
--- NOTE | 2023-09-06 15:45 | PTCARENOTE ---
Pt presents as assessed. Aox3. NSR on tele monitor. Satting high 90s on vent, settings AC:16-450-40-8. ENT at bedside to exchange trach to #6XL [facility]. Tube feeds increased as able, but placed on hold for procedure. Dr. Dan to bedside to
perform bedside bronch. Incontinent of bowel and bladder, connie care completed. Q2T maintained.
[2023-09-06] MEDS: LIPITOR 20 MG PO (17:52)
[2023-09-06 18:16] LABS: Glucose - Point of Care 116 mg/dl (70-99)
[2023-09-06] MEDS: CARDURA 1 MG PO (19:30)
[2023-09-06 19:47] LABS: Brochalveolar Lavage Color Pink; Brochalveolar Lavage Volume 10 ml
[2023-09-06 19:48] LABS: BAL Eosinophils 1 %; BAL Lymphocytes 3 %; BAL Macrophages 96 %; BAL Neutrophils 0 %; Brochalveolar Lavage Character Hazy (Clear); Brochalveolar Lavage WBC 152000 cells/ml
[2023-09-06] MEDS: LANTUS 0.1 UNITS SC (23:16)
[2023-09-06 23:27] LABS: Glucose - Point of Care 113 mg/dl (70-99)
[2023-09-07] VITALS (13 sets, daily range): BP systolic 90–169; BP diastolic 55–109
[2023-09-07 00:19] LABS: Glucose - Point of Care 135 mg/dl (70-99)
--- NOTE | 2023-09-07 01:01 | PTCARENOTE ---
assumed care of patient- pt on a/c vent- 16/450/40%/8. pt with frequent coughing, suctioned as able. left nare dobhoff intact- tube feeds infusing, increased to goal rate as able. pt inc of stool- cleaned up. foams changed on sacrum. q2t. stool
noted on left femoral triple lumen- notified IV team to come and re-dress site to keep clean. pt with increased confusion as night goes on- pt angry that the bilateral mitts are on to prevent pulling out dobhoff- pt reoriented and educated on needs
for mitts at this time.
--- NOTE | 2023-09-07 02:17 | PTCARENOTE ---
pt found with mitts off- dobhoff out of nose. pt extremely irritated, anixous and uncooperative, confused. pt told staff that 'she is done, does not want to do this anymore.' states she 'will talk to and daughter in the morning about it.'
notified covering [employer] about all of the above. IV ativan ordered and given.
[2023-09-07] MEDS: ATIVAN 0.5 MG IV ×2 (02:23→21:30)
[2023-09-07] MEDS: NSS (PRESERVATIVE FREE) 0.25 ML IV ×2 (02:23→21:31)
[2023-09-07 05:29] LABS: Hematocrit 26.9 % (37.0-47.0); Hemoglobin 8.5 g/dL (12.0-16.0); Mean Corp Hgb Conc. 31.6 g/dL (33.0-37.0); Mean Corpuscular Hgb 28.4 pg (27.0-31.0); Mean Platelet Volume 11.3 fL (7.4-10.4); Platelet Count 174 10^3/uL (130-400); Red Blood Cell Count 2.99 10^6/uL (4.20-5.40); Red Cell Dist. Width 15.8 % (11.5-14.5); White Blood Cell Count 7.6 10^3/uL (4.8-10.8)
[2023-09-07] MEDS: NOVOLOG FLEXPEN-LOW RESISTANCE SC ×3 (05:36→18:38)
[2023-09-07 05:44] LABS: Blood Urea Nitrogen 29 mg/dl (7-17); Calcium 8.2 mg/dl (8.4-10.2); Carbon Dioxide 19 mmol/L (22-30); Chloride 115 mmol/L (98-107); Estimated Creatinine Clearance 23 ml/min; Glucose 74 mg/dl (70-99); Magnesium 1.4 mg/dl (1.6-2.3); Sodium 140 mmol/L (135-145); eGFR 24.42
[2023-09-07 05:46] LABS: Glucose - Point of Care 72 mg/dl (70-99)
--- NOTE | 2023-09-07 06:09 | PTCARENOTE ---
pt with two loose BM's this shift- left femoral site soiled- notified IV team- up to floor to redress site to keep clean. pt less confused in the AM, ? ing, apologizing over last night. positive environment maintained.
[2023-09-07 06:47] LABS: Glucose - Point of Care 65 mg/dl (70-99)
[2023-09-07] MEDS: DEXTROSE 50% SYRINGE 12.5 GRAMS IV ×3 (07:06→18:17)
[2023-09-07 07:46] LABS: Glucose - Point of Care 103 mg/dl (70-99)
[2023-09-07] MEDS: DUONEB 3 ML INH ×3 (07:46→19:29)
[2023-09-07] MEDS: MUCOMYST 10% 4 ML INH ×3 (07:46→19:29)
[2023-09-07] MEDS: ASPIR LOW (ENTERIC COATED) PO (07:48)
[2023-09-07] MEDS: VITAMIN D3 (cholecalciferol) PO (07:49)
[2023-09-07] MEDS: VITAMIN B-12 PO (07:49)
[2023-09-07] MEDS: SODIUM BICARBONATE PO (07:49)
[2023-09-07] MEDS: FEOSOL PO (07:49)
[2023-09-07] MEDS: ROBITUSSIN TUBE (07:49)
[2023-09-07] MEDS: LOPRESSOR PO (07:49)
[2023-09-07] MEDS: NORVASC PO (07:49)
[2023-09-07] MEDS: HEPARIN 5000 UNITS SC ×2 (08:02→17:41)
[2023-09-07] MEDS: D10W 1000 IV (08:02)
[2023-09-07] MEDS: DESENEX/MITRAZOL/ZEASORB 1 APPLIC TOPICAL ×2 (08:03→21:27)
--- NOTE | 2023-09-07 09:27 | W.PN.HOSP.TC ---
Today's Communication/Plan
-
Ventilator wean per pulmonary
Once x-ray confirms position can restart tube feeds and stop D10
Assessment / Plan
Assessment / Plan
62-year-old female with chronic tracheostomy uses ventilator at night and trach collar during the day. She was admitted recently and was discharged on 08/25/2023 but she was admitted with acute on chronic hypoxic hypercapnic respiratory failure with
opacification of the left hemithorax. Patient underwent bronchoscopy on 08/18/2023 mucous plugs removed from the left. BAL grew Proteus and completed 7-day course of Unasyn per ID. She also had CHINTAN with CKD stage IV FLAVIO inhibitor was held.
Ultrasound of the kidney showed bilateral renal disease. She comes back with decreased responsiveness.
Echo 08/18/2023-normal LV size and systolic function. Ejection fraction 60 to 65%. Mild concentric LVH. Normal diastolic function. Normal RV size and function. Mild TR. Pulmonary pressure 30 cm of mercury. Small pericardial effusion without
hemodynamic compromise
Patient is awake , able to communicate
Chest few rales at bases
Cardiovascular system S1-S2 appreciated
No pedal edema
Pulled DHT yesterday second time
#Acute TME on admission and on 09/04/23
EEG, CT of the head all negative
Possible vent settings at home may need to be changed. She is on IPAP 13 EPAP at 5 at home
ENT evaluation appreciated. Leaking may be positional. If difficult with ventilation then could consider a longer trach
Video swallow evaluation when patient can be on a trach collar
Fever-likely respiratory source
S/P bronchoscopy 09/06/23
Respiratory cultures with pseudomonas and Serratia
Treat as Aspiration pneumonia
PT of the chest with cofflator
Blood cultures negative so far
Continue-cefepime- Would complete a 10- day course
ID eval appreciated
#Central line-PICC team could not get a central line therefore she has a femoral line will request IR to see if they can place an alternate line. Consulted.
#Acute on chronic hypercapnic/hypoxemic respiratory failure:
-With acute respiratory acidosis
-Recently the patient's tidal volume has decreased to an average of less than 200cc nightly (will be rectified with [employer]
-pulmonary following
-On mechanical ventilation now
-Was on CPAP for less than 2 hours 09/06/23 per RT
#One set of BC with lactobacillus Casei -Likely contaminant
#Anemia of chronic disease and Fe deficiency:
-s/p 2U pRBCs (on 09/01/23 and 09/03/23)
#Hypokalemia- Replaced
#Hypomagnesemia- Replace
#Positive LILIAN Screen-OP Rheum Eval.
#CKD4, Cr at baseline
#DM2: cont SSI/accuchecks Lantus 10 units. D10 started as she did not have Dobbhoff tube this morning and she was hypoglycemic
#Hx of small to moderate pericardial effusion
#Essential hypertension: cont Norvasc/doxazosin.
#Hyperlipidemia: Continue statin
#Coronary artery disease status post angioplasty: cont ASA/BB
#h/o C. diff
#COVID pneumonia 2019 with ECMO and ventilator and 3-month hospital stay at [facility]
#Ambulatory dysfunction wheelchair-bound since June 2019
#Spinal stenosis
#Overweight per BMI criteria
#Hypoalbuminemia
#Nutrition- Dobbhoff tube feeds. Tube placed again today ( by me). Will need reatraints as she pulled her.Mitts and pulled DH out last night.
#FULL CODE
#DVT prophylaxis-SC Heparin
Discussed with and daughter at bedside
Discussed with nursing
D/W RT at bed side
Medically complicated
Third Dobbhoff tube placed today. I had a very detailed conversation with the patient and family. Reportedly she mentioned to the family that she does not want to go through this. When I brought this up with the family today they feel that she
saying this because she is frustrated. We also discussed that if she is not going to be weaned soon and she does not keep the Dobbhoff tube we may have to consider PEG tube. Family wants to think about it.
They would like to see how she does with weaning now that she had bronchoscopy.
Time spent 56 minutes
Anticipated Discharge: > 48 hours
Subjective/Interval History
-
Date of Service: September 07, 2023
Objective Data
-
Labs:
Laboratory Results
09/07/23
05:01
WBC 7.6
Hgb 8.5 L
Hct 26.9 L
Plt Count 174
Sodium 140
Potassium 4.0
Chloride 115 H
Carbon Dioxide 19 L
BUN 29 H
Creatinine 2.2 H
Glucose 74
Calcium 8.2 L
Vital Signs:
Vital Signs
Temp Pulse Resp BP Pulse Ox
99.7 F 79 16 161/96 100
09/07/23 07:59 09/07/23 08:00 09/07/23 08:00 09/07/23 06:00 09/07/23 08:00
I&O
09/06/23 09/07/23 09/08/23
06:59 06:59 06:59
Intake Total 465 / 465
Output Total 250 / 250
Balance 215 / 215
[2023-09-07 09:50] LABS: Glucose - Point of Care 83 mg/dl (70-99)
[2023-09-07] MEDS: MAXIPIME 1000 MG IV ×2 (10:45→21:23)
[2023-09-07] MEDS: STERILE WATER FOR INJECTION 10 ML IV ×2 (10:45→21:24)
[2023-09-07] MEDS: MAGNESIUM SULFATE 50 IV (10:46)
--- NOTE | 2023-09-07 10:54 | W.PN.ID1 ---
Date of Service
Date of Service: September 07, 2023
Today's Communication
Continue abx. See below...
Assessment / Plan
Episode of fever; source unclear
- temps down.
CKD
Chronic respiratory failure following COVID (2019); with Hx ECMO, current PM vent support
CAD
HTN
DM
Anemia
Recommendations:
Respiratory culture with Pseudomonas and Serratia. Unclear if colonizer or if causing true infection.
Continue with cefepime (d#3) for an additional 2 days. Dose is currently adjusted for renal insufficiency.
Monitor white count and temperature curve.
Blood cultures currently in progress. Will continue to monitor.
- prior cultures (08/30) with Lactobacillus; likely contaminate
Currently d#8 of (L) femoral CVC. Femoral line removal previously ordered by Hospitalist. For eval by IR for possible midline placement.
Overall outlook remains guarded given multiple medical comorbidities.
Chief Complaint
-: Fever
Subjective / Review of Systems
See / examined. Remains on vent.
Review of Systems: No Fever and No Chills
Vital Signs / Physical Exam
Vital Signs
Vital Signs
Temp Pulse Resp BP Pulse Ox
99.7 F 86 19 149/66 100
09/07/23 07:59 09/07/23 08:06 09/07/23 08:06 09/07/23 08:06 09/07/23 08:06
Physical Exam
Constitutional: No Acute Distress, Comfortable, Chronically Ill and Non-toxic
Head: Other (Nasal dobhoff in place)
Eyes: No Conjunctival Hemorrhage and Sclera Anicteric
Oropharyngeal: Other (Tracheostomy in place.)
Cardiovascular: Regular Rate and S1/S2; Negative S3/S4
Pulmonary: Coarse, Non Labored and Other (Trach collar in place. On vent.); Negative Wheezes
Gastrointestinal: Soft, Non Tender and Non Distended
Extremities: Edema; Negative Cyanosis or Erythema
Neurological: Awake and Alert
Psychological: Calm
Objective Data
Lab Data
Lab Results
09/07/23 05:01
09/07/23 05:01
PT 13.4 Sec (11.4-14.6) 08/31/23 14:39
INR 1.02 08/31/23 14:39
APTT 37.5 Sec (23.4-35.0) H 08/31/23 14:39
Estimated Creat Clear 23 ml/min 09/07/23 05:01
Lactic Acid Cancelled 08/31/23 18:45
Total Bilirubin 0.5 mg/dl (0.2-1.3) 08/31/23 20:18
AST 14 U/L (14-36) 08/31/23 20:18
ALT < 10 U/L (0-35) 08/31/23 20:18
Alkaline Phosphatase 63 U/L (38-126) 08/31/23 20:18
Most recent labs reviewed.
Micro Results:
09/05/23 09:11 Blood Culture - Preliminary
Blood/Venous No Growth in 48 hours- Final report to follow
09/05/23 09:00 Blood Culture - Preliminary
Blood/Venous No Growth in 48 hours- Final report to follow
09/05/23 13:11 Respiratory Culture - Preliminary
Tracheal Aspirate Serratia marcescens
Pseudomonas aeruginosa
Gram Stain - Preliminary
09/06/23 15:39 Respiratory Culture - Pending
Bronch Left Lower Lobe Gram Stain - Preliminary
09/06/23 15:39 Fungal Culture - Preliminary
Bronch Left Lower Lobe Culture in progress.
Positive cultures are reported as soon as detected.
Final report to follow in four to five weeks.
08/31/23 14:39 Blood Culture - Final
Blood/Venous No Growth - Final Report
08/31/23 14:39 Blood Culture - Preliminary
Blood/Venous Lactobacillus casei
Gram Stain - Preliminary
09/01/23 03:39 MRSA Screen - Final
Nose No Methicillin Resistant Staphylococcus aureus isolated.
08/31/23 14:39 Urine Culture - Final
Urine No Significant Growth
Imaging:
09/05/2023 CXR (portable): The left hemidiaphragm is again obscured suggesting opacification such as atelectasis and/or pneumonia and small left pleural effusion. Overall widespread pulmonary interstitial markings are again slightly prominent. There
is no pneumothorax or significant right pleural effusion.
08/19/2023 Renal ultrasound: Severe bilateral renal disease (left > right), increased since 2021. 4.8 mm nonobstructing left intrarenal calculus noted. No evidence for hydronephrosis.
--- NOTE | 2023-09-07 11:01 | W.PN.PUL3 ---
Today's Communication / Plan
-
BAL from 09/05 --> follow up Cx sensitivities; cytology negative for malignancy
Daily CXR
Continue chest PT with cofflator, Mucomyst + DuoNebs + sport bed
Abx restarted due to fever
Removed left femoral CVC and placed right EJ CVC per IR today
Discuss with [employer] adjusting ventilator settings --> family brought in Trilogy machine from home so that we can place pt onto this and assure she is stable before she goes back home
Swallowing evaluation --> deferred for now until we can get her back onto Tc during the day
Continue mechanical ventilation ATC today with PEEP at 8 --> daily weaning trials
ENT consult --> XLT #6 [facility] placed on 09/06/2023
Routine trach care
Assessment
-
Patient is a 62 year old F with history of chronic hypoxic/hypercarbic resp failure s/p trach, post COVID illness, who p/w CC shortness of breath. The patient was recently discharged from 08/25/23 for mucus plugging. Family states that on day of
admission, the patient had decreased responsiveness. She is placed on Trilogy at night/trach collar through the day. She has been sleeping more and less conversive. They have noticed her exhaled TV on Trilogy reporting on avg <200cc nightly. Her
baseline settings are TV 350/PS8/40%/5+. Per medics, the patient was initially on 15 L but desaturated to the 80s. She had to be bagged and her saturations did improve. She is placed on vent in ER and saturations are now improved. CXR appears
similar to prior. We are consulted for eval 09/01/23.
Impression:
Hypoxemic and hypercapnic respiratory failure due to recurrent mucous plug/left lung atelectasis
ABG 08/17/2023--52/59/7 0.24
Ventilator dependent respiratory failure
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
Status post emergent bronchoscopy at the bedside 08/18/2023-mucous plugs removed from the left
Pneumonia - SCx from 09/04 and BAL from 09/05 growing Serratia marcescens + Pseudomonas aeruginosa
Left pleural effusion
CHINTAN (Cr baseline 2.1)
Anemia-normocytic
Hypocalcemia
Hypernatremia
Metabolic and respiratory acidosis
Conditions present prior to admission:
Chronic hypercapnic/hypoxemic respiratory failure/chronic tracheostomy/nocturnal ventilation.
Severe Covid/ECMO 2019.
Diabetes.
Hypertension.
CAD/angioplasty 2020.
Recurrent UTI.
Ambulatory dysfunction/wheelchair-bound.
Chronic anemia.
Overweight.
Renal calculi.
Laparoscopic cholecystectomy 07/2020. Bilateral ureteroscopy with lithotripsy of the right renal stone and clearing of left renal pelvic fungal ball. Laminectomy. .
Plan
Presentation this admission with lethargy. Found to be hypercapnic.
Discharged from on 08/25/23 after emergent bronchoscopy performed 08/18/2023 with some mucous plugs removed
ABG on presentation: 7.24 -54 -206 prior ABG 7.2 -55, 7.13 -68
Family notes she has been on vent during the day prior to admission.
CXR 08/30 with similar appearance-no significant atelectasis.
Most recent download report from [facility] 08/16/23 showing usage 9.3 avg hours - MV 5.7 L/min - RR 23 - IPAP/EPAP 12.6/4.9 cm water - Avg VTe 249.1 - leak 32.5 L/min
Settings: Mode S, IPAP 13 EPAP 5
-
In the last few weeks FITTER UP, has noticed decline in TV to <200 on avg nightly
Not sure how settings were changed as she should have been on AC-equivalent TV 350/PS 8/40%/PEEP 5 per last office note
Symptoms resolved after being placed on ventilator here in the hospital.
Will need to make sure her ventilator settings are home are adjusted as above.
Will need to discuss with her [employer] to adjust ventilator settings. Prior to discharge. --> I asked if he could bring in patient's Trilogy machine here so that we can place pt onto this prior to discharge to assure she is tolerating it
with stable blood gas measurements and adequate SpO2 and VTe.
Continue mechanical ventilation ATC today, and every day we should attempt PS trials first on PS 5, PEEP of 8, then eventually CPAP 5/5.
Continue with Mucomyst and nebulizers as needed/airway clearance
Continue with mucolytics
CPAP/pressure support and trach collar weans--okay to use pressure support today. Will avoid trach collar for now.
Aspiration precautions
Routine tracheostomy tube care continues
I Rx her a sport bed and advised RT to suction often with cofflator through the trach; ok to change mucomyst and Duonebs from q6hr to TID, and will obtain serial CXR to assure her L-sided atelectasis improves --> her CXR from 2100 on 09/03 showed
improvement of her left-sided complete whiteout. However she still continues to have left-sided atelectasis --> CXR on AM of 09/05 shows persistent L-atelectasis. Performed bronchoscopy on 09/05 for pulmonary toilet purposes and BAL of LLL --> Cx
grew Serratia marcescens + Pseudomonas aeruginosa � follow-up sensitivities
During the bronch, there was a mucosal abnormality at her LLL at the secondary fran, which appeared white/shiny --> concern for dysplasia. Cytology negative for malignancy. She should obtain repeat CT Chest in 4-6 weeks, and consider repeat
bronchoscopy with biopsy haja if BAL shows atypical cells on cytopathology.
Discontinued antibiotics on 2023: Afebrile. Cultures negative. Fever again on AM of 09/04 --> ABx restarted with cefepime; sputum culture + BAL both growing Serratia marcescens + Pseudomonas aeruginosa. Continue with cefepime. Follow up
repeat BCx X2 (collected 09/04)
? Positive blood culture suspect contaminant
Follow-up blood cultures negative
Recurrent microaspiration also has been contemplated in the past. She has been evaluated by speech therapy multiple times in the past. Diet has been modified.
Primary team ordered video barium swallow--> unfortunately patient is not safe to be placed back onto trach collar at this time. Dobbhoff placed by primary team and will need to evaluate this daily; she may end up needing G-tube prior to discharge
if unable to be weaned back down to trach collar during the day
ENT consult placed by me to evaluate her tracheostomy given occasional reduction in TVe; unknown if the tracheostomy cuff is dysfunctional or she needs a different size. Dr. Powell evaluated her today --> #[id number] placed on 09/05 ([facility]); please make
sure that extra tracheostomy is at bedside.
Anemia: Transfused on 09/01/2023 + 09/03/2023 (1 U PRBC each day)
trend Hb and transfuse as needed to keep >7g/dL
Follow renal function
I/Os, daily weights
DVT prophylaxis-on heparin
Early mobilization/bedside range of motion-baseline wheelchair-bound and ambulatory dysfunction
IV access:
Left femoral triple-lumen catheter/CVC: Placed 08/31/2023 in ER --> removed on 09/06
The patient was last seen in the pulmonary office by Kalpana Mobley NP 06/01/2023 and has an appointment 09/07/2023 at 10:30 AM --> this will be re-scheduled.
Can eval for discharge planning once Trilogy issue resolved and new pneumonia effectively treated.
Total time spent today was 50 minutes for this encounter. Time includes reviewing laboratory test/imaging results, reviewing pertinent medical records, obtaining and reviewing medical history, performing an appropriate exam, ordering medications,
tests and procedures. Time also includes documentation of this encounter, coordinating patient care and communicating with other healthcare professionals. Total time does not include separately billed tests performed on this date of service.

Diagnostic Data:
CXR 04-27, reviewed, L basilar atelectasis
CXR 04-19, resolved total L atelectasis, currently back to chronic L basilar atelectasis. New tracheostomy
CXR 04-16, portable, L basilar atelectasis
CXR 04/11/22- 1. Complete opacification of the left hemithorax, likely on the basis of a large pleural effusion and compressive atelectasis upon the left lung. Mild right basilar pneumonia suspected
Chest x-ray 08/17/2023-near complete opacification throughout the left Jovanni thorax
Echocardiogram 01/10/22-EF 60-65%, no significant valvular disease, small pericardial effusion
Echocardiogram 03/22/22: Normal left ventricular chamber size. Normal left ventricular systolic�function. Normal regional wall motion. Normal left ventricular wall thickness.�Left ventricular ejection fraction is 60-65%. Mild tricuspid
regurgitation.�Small to moderate pericardial effusion without evidence of hemodynamic�compromise.�Compared to the previous echo Dec 2021, there is no significant change.
CT CHEST 04/11/22- �A moderate to large left pleural effusion and complete collapse/atelectasis of the left lung account for the left hemithorax opacification on the prior chest radiograph. Findings are in part likely secondary to mucous plugging
given the presence of opacification of the left mainstem bronchus and left upper and lower lobe bronchi, patchy opacifications right middle and lower lobe suspicious for pneumonia, moderate right pleural effusion and ill-defined sclerotic lesion
T12, osseous metastasis not completely excluded
CT CHEST 03/22/22 - There is no CT evidence for pulmonary embolism. No aortic dissection.There are extremely large bilateral pleural effusions right greater than left and associated bilateral consolidation most prominent in the left lower
lobe.Cardiomegaly. Increased pericardial effusion.
CT chest 08/17/2023-occluded left mainstem bronchus presumably mucous plugs with complete atelectasis left lung moderate size left pleural effusion, small to moderate right pleural effusion
VSE 04/28/22: No aspiration. Laryngeal penetration with cough with thin liquids by cup.
Spirometry 09/09/21-FEV1 790 mL-36%, FVC 790 mL 27%. Some difficulties with maneuver and thus may offer unreliability. Severe restriction.�������
PFT 02/08/22-FVC 1.01/30%, FEV1 0.70/35%, ratio 69%, unable to perform lung volumes and diffusing capacity.
Subjective Data
-
Date of Service:
Date of Service: September 07, 2023
Chief Complaint: Pulmonary Follow Up (Acute respiratory failure/mucous plugging.)
Subjective:
Patient seen and evaluated today at bedside. Afebrile overnight. Sputum culture from 09/05/2023 + bronchoscopy from yesterday both growing Serratia marcescens + Pseudomonas aeruginosa. at bedside and he brought patient Trilogy machine in
from home. Patient intermittently coughing � did not tolerate PS trial today. Patient denies chest pain, headache, fevers or chills.
Review of Systems
General: Other (Negative unless mentioned above)
Objective Data
Data Reviewed
Vital Signs / I&O / Oxygen:
Vital Signs
Temp Pulse Resp BP Pulse Ox
100.0 F 86 19 149/66 100
09/07/23 11:27 09/07/23 08:06 09/07/23 08:06 09/07/23 08:06 09/07/23 08:06
Intake and Output
09/06/23 09/07/23 09/08/23
06:59 06:59 06:59
Intake Total 465 / 465
Output Total 250 / 250
Balance 215 / 215
SaO2 [A/C] 100
SaO2 100
Physical Exam
General: Respiratory Distress (n) and Comfortable
HEENT: Normocephalic, Anicteric and Tracheotomy
Cardiovascular: S1-S2 and Peripheral Edema (+1 lower extremity edema)
Respiratory: Wheeze (Negative), Crackles (Bilaterally), Rhonchi (Bilaterally (L >R)), Non-Labored Respirations and Other (Mechanical breath sounds heard bilaterally)
GI: Soft, Non Distended, Non Tender and Normal Bowel Sounds
Neurology: Awake, Alert and Other (Confused at times)
Skin: Warm and Dry
Labs/Micro/Reports
Lab Data
09/07/23 05:01
09/07/23 05:01
Microbiology
08/31/23 14:39 Blood/Venous Blood Culture - Final
Lactobacillus casei
08/31/23 14:39 Blood/Venous Gram Stain - Final
09/06/23 15:39 Bronch Left Lower Lobe Respiratory Culture - Preliminary
Serratia marcescens
Pseudomonas aeruginosa
09/06/23 15:39 Bronch Left Lower Lobe Gram Stain - Preliminary
09/05/23 09:11 Blood/Venous Blood Culture - Preliminary
No Growth in 48 hours- Final report to follow
09/05/23 09:00 Blood/Venous Blood Culture - Preliminary
No Growth in 48 hours- Final report to follow
09/05/23 13:11 Tracheal Aspirate Respiratory Culture - Preliminary
Serratia marcescens
Pseudomonas aeruginosa
09/05/23 13:11 Tracheal Aspirate Gram Stain - Preliminary
09/06/23 15:39 Bronch Left Lower Lobe Fungal Culture - Preliminary
Culture in progress.
Positive cultures are reported as soon as detected.
Final report to follow in four to five weeks.
08/31/23 14:39 Blood/Venous Blood Culture - Final
No Growth - Final Report
--- NOTE | 2023-09-07 11:40 | PTCARENOTE ---
Dr. Bishop at bedside, replaced DHT in R nare. Confirmed placement by XR, Ok per MD to use tube. Order received to resume tube feedings.
[2023-09-07] MEDS: TYLENOL 1000 MG PO (12:02)
[2023-09-07] MEDS: ROBITUSSIN 200 MG TUBE ×3 (12:02→21:39)
[2023-09-07 12:41] LABS: Glucose - Point of Care 55 mg/dl (70-99)
[2023-09-07 13:05] LABS: Glucose - Point of Care 88 mg/dl (70-99)
--- NOTE | 2023-09-07 14:00 | WOUNDNOTE ---
WOC RN note: Patient off unit. Spoke with RN Charo who stated she changed patient's sacral dressing and reports ulcerations looks the same as last week's wound photo. Will follow as needed.
--- NOTE | 2023-09-07 16:05 | VATNOTE ---
left femoral tlc removed per MD order from 09/04; per protocol. Samuel and PCCharo Lucas instructed to check site 5 min after no bleeding and again in 1/2 hr at bedside.
--- NOTE | 2023-09-07 16:21 | CM ---
Patient with Hx trach collar daytime, mechanical ventilation at night, ambulatory dysfunction, w/c bound with Dx acute on chronic hypercapnic/hypoxemic respiratory failure, acute TME, anemia. Vent/trach collar, #6 shiley placed yesterday,
ventilator wean ordered. Bedside bronch yesterday. Patient pulled out 2nd dobhoff tube yesteray - third dobhoff tube placed today - Osmolite tube feeds. Plan swallow eval when back on trach collar daytime. Femoral IV line d/c - For eval by IR
for possible midline placement. Receiving IV cefepime. Seen by wound care nurse.
CM continuing to follow for d/c needs.
Plan home by ambulance when medically ready.
--- NOTE | 2023-09-07 17:00 | PTCARENOTE ---
Pt presents as assessed. NSR on tele monitor. Satting high 90s on vent, settings AC:16-450-40-8. To IR with this RN and RT for procedure. Tube feeds infusing and increasing as tolerated- see intervention. Grossly incontinent of urine; connie care
completed. Q2T maintained.
[2023-09-07] MEDS: LIPITOR 20 MG PO (17:39)
--- NOTE | 2023-09-07 18:20 | PTCARENOTE ---
Pt hypoglycemic again despite TF infusing. D50 administered, see MAR. Dr. Bishop notified, verbal order received to increase TF to goal rate of 70.
[2023-09-07 18:21] LABS: Glucose - Point of Care 58 mg/dl (70-99)
[2023-09-07 18:54] LABS: Glucose - Point of Care 100 mg/dl (70-99)
[2023-09-07 21:00] LABS: Glucose - Point of Care 79 mg/dl (70-99)
[2023-09-07] MEDS: SODIUM BICARBONATE 650 MG PO (21:24)
[2023-09-07] MEDS: CARDURA 1 MG PO (21:24)
[2023-09-07] MEDS: LOPRESSOR 50 MG PO (21:27)
--- NOTE | 2023-09-07 22:30 | PTCARENOTE ---
Addendum entered by Gayle Shea RN 09/08/23 02:56:
Reassessment, Pt appears to be resting comfortably. Pt respiration even unlabored. Pt responsive when awoken and easily and comfortably going back to sleep. Vitals stable at this time. Pt has no other complaints. Hypoglycemic protocol followed from
day shift, low blood sugar currently resolved. Pt tolerating TF at goal 70ml/hr.
Original Note:
Pt presenting restless, emotional support given. Pt able to answer yes and no questions. Pt communicated she is feeling anxious about the tube in her nose(Dobbhoff) and restraints, education and emotional support give. Pt mouthing 'what can I have'.
Night OUTPATIENT CODER made aware. One time order of Ativan given.
[2023-09-07] MEDS: LANTUS SC (23:07)
[2023-09-07 23:11] LABS: Glucose - Point of Care 96 mg/dl (70-99)
[2023-09-08] VITALS (13 sets, daily range): BP systolic 122–152; BP diastolic 59–72
[2023-09-08 00:43] LABS: Glucose - Point of Care 96 mg/dl (70-99)
[2023-09-08] MEDS: NOVOLOG FLEXPEN-LOW RESISTANCE SC (00:45)
[2023-09-08] MEDS: HEPARIN 5000 UNITS SC ×4 (01:01→23:11)
[2023-09-08 03:12] LABS: Glucose - Point of Care 129 mg/dl (70-99)
[2023-09-08 04:22] LABS: HCO3 20.2 mmol/L (21-28); PCO2 42 mmHg (32-35); PO2 121 mmHg (83-108); pH 7.29 (7.35-7.45)
[2023-09-08 06:27] LABS: Glucose - Point of Care 170 mg/dl (70-99)
[2023-09-08] MEDS: NOVOLOG FLEXPEN-LOW RESISTANCE 1 UNITS SC ×4 (06:50→23:16)
[2023-09-08] MEDS: DUONEB 3 ML INH ×3 (08:13→19:47)
[2023-09-08] MEDS: MUCOMYST 10% 4 ML INH (08:15)
--- NOTE | 2023-09-08 09:00 | PTOTSP ---
Speech Language Pathology
Pt has been inappropriate for evaluation with INFORMATION TECHNOLOGY ACCOUNT MANAGER since initial orders entered 09/01. Has not been appropriate for inline speaking valve or cuff deflation for swallowing evaluation and continues with DHT. INFORMATION TECHNOLOGY ACCOUNT MANAGER to sign off at this time as she has not
been appropriate for therapy. Please reconsult when appropriate (per RT) for cuff deflation or inline speaking valve.
--- NOTE | 2023-09-08 09:20 | W.PN.PUL3 ---
Today's Communication / Plan
-
BAL from 09/05 grew Pseudomonas aeruginosa + Serratia marcescens; cytology negative for malignancy
Re-check CXR tomorrow AM, then can check less frequently
Continue chest PT with cofflator, Mucomyst + DuoNebs + sport bed
Abx restarted due to fever
Removed left femoral CVC and placed right EJ CVC per IR on 09/06
Discuss with [employer] adjusting ventilator settings --> family brought in Trilogy machine from home so that we can place pt onto this and assure she is stable before she goes back home - would do this when pt close to discharge
If patient unable to be weaned to trach collar, will need to discuss goals of care with the patient/family as she would need a PEG tube and decision needs to be made if she should go home versus a long-term acute care facility for continued
ventilatory weaning
Swallowing evaluation --> deferred for now until we can get her back onto Tc during the day
Continue mechanical ventilation ATC today --> PEEP dropped to 5 today --> daily weaning trials as tolerated
ENT consult --> XLT #6 [facility] placed on 09/06/2023
Routine trach care
Assessment
-
Patient is a 62 year old F with history of chronic hypoxic/hypercarbic resp failure s/p trach, post COVID illness, who p/w CC shortness of breath. The patient was recently discharged from 08/25/23 for mucus plugging. Family states that on day of
admission, the patient had decreased responsiveness. She is placed on Trilogy at night/trach collar through the day. She has been sleeping more and less conversive. They have noticed her exhaled TV on Trilogy reporting on avg <200cc nightly. Her
baseline settings are TV 350/PS8/40%/5+. Per medics, the patient was initially on 15 L but desaturated to the 80s. She had to be bagged and her saturations did improve. She is placed on vent in ER and saturations are now improved. CXR appears
similar to prior. We are consulted for eval 09/01/23.
Impression:
Hypoxemic and hypercapnic respiratory failure due to recurrent mucous plug/left lung atelectasis
ABG 08/17/2023--52/59/7 0.24
Ventilator dependent respiratory failure
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
Status post emergent bronchoscopy at the bedside 08/18/2023-mucous plugs removed from the left
Pneumonia - SCx from 09/04 and BAL from 09/05 growing Serratia marcescens + Pseudomonas aeruginosa
Left pleural effusion
CHINTAN (Cr baseline 2.1)
Anemia-normocytic
Hypocalcemia
Hypernatremia
Metabolic and respiratory acidosis
Conditions present prior to admission:
Chronic hypercapnic/hypoxemic respiratory failure/chronic tracheostomy/nocturnal ventilation.
Severe Covid/ECMO 2019.
Diabetes.
Hypertension.
CAD/angioplasty 2020.
Recurrent UTI.
Ambulatory dysfunction/wheelchair-bound.
Chronic anemia.
Overweight.
Renal calculi.
Laparoscopic cholecystectomy 07/2020. Bilateral ureteroscopy with lithotripsy of the right renal stone and clearing of left renal pelvic fungal ball. Laminectomy. .
Plan
Presentation this admission with lethargy. Found to be hypercapnic.
Discharged from on 08/25/23 after emergent bronchoscopy performed 08/18/2023 with some mucous plugs removed
ABG on presentation: 7.24 -54 -206 prior ABG 7.2 -55, 7.13 -68
Family notes she has been on vent during the day prior to admission.
CXR 08/30 with similar appearance-no significant atelectasis.
Most recent download report from [facility] 08/16/23 showing usage 9.3 avg hours - MV 5.7 L/min - RR 23 - IPAP/EPAP 12.6/4.9 cm water - Avg VTe 249.1 - leak 32.5 L/min
Settings: Mode S, IPAP 13 EPAP 5
-
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
Not sure how settings were changed as she should have been on AC-equivalent TV 350/PS 8/40%/PEEP 5 per last office note
Symptoms resolved after being placed on ventilator here in the hospital.
Will need to make sure her ventilator settings are home are adjusted as above.
Will need to discuss with her [employer] to adjust ventilator settings. Prior to discharge. --> brought in patient's Trilogy machine here so that we can place pt onto this prior to discharge to assure she is tolerating it with stable blood
gas measurements and adequate SpO2 and VTe --> would keep patient on our own ventilator until patient is close to discharge at which time we can place onto her own ventilator to see if she has adequate ventilation and oxygenation.
Continue mechanical ventilation ATC today, and every day we should attempt PS trials first on PS 5, PEEP of 8, then eventually CPAP 5/5.
Continue with Mucomyst and nebulizers as needed/airway clearance
Continue with mucolytics
CPAP/pressure support and trach collar weans--okay to use pressure support today. Will avoid trach collar for now.
Aspiration precautions
Routine tracheostomy tube care continues
I Rx her a sport bed and advised RT to suction often with cofflator through the trach; ok to change mucomyst and Duonebs from q6hr to TID, and will obtain serial CXR to assure her L-sided atelectasis improves --> her CXR from 2100 on 09/03 showed
improvement of her left-sided complete whiteout. However she still continues to have left-sided atelectasis --> CXR on AM of 09/05 shows persistent L-atelectasis. Performed bronchoscopy on 09/05 for pulmonary toilet purposes and BAL of LLL --> Cx
grew Serratia marcescens + Pseudomonas aeruginosa � follow-up sensitivities
During the bronch, there was a mucosal abnormality at her LLL at the secondary fran, which appeared white/shiny --> concern for dysplasia. Cytology negative for malignancy. She should obtain repeat CT Chest in 4-6 weeks, and consider repeat
bronchoscopy with biopsy haja if BAL shows atypical cells on cytopathology.
Discontinued antibiotics on 2023: Afebrile. Cultures negative. Fever again on AM of 09/04 --> ABx restarted with cefepime; sputum culture + BAL both growing Serratia marcescens + Pseudomonas aeruginosa. Continue with cefepime. Follow up
repeat BCx x 2 (collected 09/04)
? Positive blood culture suspect contaminant
Follow-up blood cultures negative
Recurrent microaspiration also has been contemplated in the past. She has been evaluated by speech therapy multiple times in the past. Diet has been modified.
Primary team ordered video barium swallow--> unfortunately patient is not safe to be placed back onto trach collar at this time. Dobbhoff placed by primary team and will need to evaluate this daily; she may end up needing G-tube prior to discharge
if unable to be weaned back down to trach collar during the day
ENT consult placed by me to evaluate her tracheostomy given occasional reduction in TVe; unknown if the tracheostomy cuff is dysfunctional or she needs a different size. Dr. Powell evaluated her on 09/05 --> #[id number] placed on 09/05 ([facility]); please
make sure that extra tracheostomy is at bedside.
Anemia: Transfused on 09/01/2023 + 09/03/2023 (1 U PRBC each day)
trend Hb and transfuse as needed to keep >7g/dL
Follow renal function
I/Os, daily weights
DVT prophylaxis-on heparin
Early mobilization/bedside range of motion-baseline wheelchair-bound and ambulatory dysfunction
Continue her tube feeds via NG tube � if patient unable to be successfully weaned to trach collar over the weekend then would consult GI on Monday for PEG, assuming that family agrees to this
IV access:
Left femoral triple-lumen catheter/CVC: Placed 08/31/2023 in ER --> removed on 09/06
The patient was last seen in the pulmonary office by Kalpana Mobley NP 06/01/2023 and has an appointment 09/07/2023 at 10:30 AM --> this will be re-scheduled.
Can eval for discharge planning once Trilogy issue resolved and new pneumonia effectively treated.
Total time spent today was 50 minutes for this encounter. Time includes reviewing laboratory test/imaging results, reviewing pertinent medical records, obtaining and reviewing medical history, performing an appropriate exam, ordering medications,
tests and procedures. Time also includes documentation of this encounter, coordinating patient care and communicating with other healthcare professionals. Total time does not include separately billed tests performed on this date of service.

Diagnostic Data:
CXR 04-27, reviewed, L basilar atelectasis
CXR 04-19, resolved total L atelectasis, currently back to chronic L basilar atelectasis. New tracheostomy
CXR 04-16, portable, L basilar atelectasis
CXR 04/11/22- 1. Complete opacification of the left hemithorax, likely on the basis of a large pleural effusion and compressive atelectasis upon the left lung. Mild right basilar pneumonia suspected
Chest x-ray 08/17/2023-near complete opacification throughout the left Jovanni thorax
Echocardiogram 01/10/22-EF 60-65%, no significant valvular disease, small pericardial effusion
Echocardiogram 03/22/22: Normal left ventricular chamber size. Normal left ventricular systolic�function. Normal regional wall motion. Normal left ventricular wall thickness.�Left ventricular ejection fraction is 60-65%. Mild tricuspid
regurgitation.�Small to moderate pericardial effusion without evidence of hemodynamic�compromise.�Compared to the previous echo Dec 2021, there is no significant change.
CT CHEST 04/11/22- �A moderate to large left pleural effusion and complete collapse/atelectasis of the left lung account for the left hemithorax opacification on the prior chest radiograph. Findings are in part likely secondary to mucous plugging
given the presence of opacification of the left mainstem bronchus and left upper and lower lobe bronchi, patchy opacifications right middle and lower lobe suspicious for pneumonia, moderate right pleural effusion and ill-defined sclerotic lesion
T12, osseous metastasis not completely excluded
CT CHEST 03/22/22 - There is no CT evidence for pulmonary embolism. No aortic dissection.There are extremely large bilateral pleural effusions right greater than left and associated bilateral consolidation most prominent in the left lower
lobe.Cardiomegaly. Increased pericardial effusion.
CT chest 08/17/2023-occluded left mainstem bronchus presumably mucous plugs with complete atelectasis left lung moderate size left pleural effusion, small to moderate right pleural effusion
VSE 04/28/22: No aspiration. Laryngeal penetration with cough with thin liquids by cup.
Spirometry 09/09/21-FEV1 790 mL-36%, FVC 790 mL 27%. Some difficulties with maneuver and thus may offer unreliability. Severe restriction.�������
PFT 02/08/22-FVC 1.01/30%, FEV1 0.70/35%, ratio 69%, unable to perform lung volumes and diffusing capacity.
Subjective Data
-
Date of Service:
Date of Service: September 08, 2023
Chief Complaint: Pulmonary Follow Up (Acute respiratory failure/mucous plugging.)
Subjective:
Patient seen and evaluated today at bedside. Currently on mechanical ventilation via tracheostomy on settings AC/CMV: 16/450/40%/8, breathing at 16 breaths/min, peak pressure 40 and VTe 4 4 mL. PEEP dropped from 8 to 5 and plateau pressure was 35.
Patient saturating at 99% with BP 124/61 and heart rate 75. Patient sleepy today and in no acute distress. Tube feeds on at 70 mL/h.
Review of Systems
General: Other (Unable to obtain today as patient is sleepy/lethargic)
Objective Data
Data Reviewed
Vital Signs / I&O / Oxygen:
Vital Signs
Temp Pulse Resp BP Pulse Ox
100.3 F 82 16 122/59 100
09/08/23 07:58 09/08/23 08:20 09/08/23 08:20 09/08/23 08:00 09/08/23 08:20
Intake and Output
09/07/23 09/08/23 09/09/23
06:59 06:59 06:59
Intake Total 1300 / 1300
Output Total 0 / 0
Balance 1300 / 1300
SaO2 [A/C] 100
SaO2 100
Physical Exam
General: Respiratory Distress (n) and Comfortable
HEENT: Normocephalic, Anicteric and Tracheotomy
Cardiovascular: S1-S2 and Peripheral Edema (+1 lower extremity edema (L>R))
Respiratory: Wheeze (Negative), Crackles (Bilaterally), Rhonchi (Bilaterally (L >R)), Non-Labored Respirations and Other (Mechanical breath sounds heard bilaterally)
GI: Soft, Non Distended, Non Tender and Normal Bowel Sounds
Neurology: Lethargic and Other (Confused at times)
Skin: Warm and Dry
Labs/Micro/Reports
Lab Data
09/07/23 05:01
09/07/23 05:01
Laboratory Results
09/08/23
04:14
pH 7.29 L
pCO2 42 H
pO2 121 H
HCO3 20.2 L
O2 Delivery Level
Microbiology
09/05/23 09:11 Blood/Venous Blood Culture - Preliminary
No Growth in 72 hours- Final report to follow
09/05/23 13:11 Tracheal Aspirate Respiratory Culture - Preliminary
Serratia marcescens
Pseudomonas aeruginosa
09/05/23 13:11 Tracheal Aspirate Gram Stain - Preliminary
09/05/23 09:00 Blood/Venous Blood Culture - Preliminary
No Growth in 72 hours- Final report to follow
08/31/23 14:39 Blood/Venous Blood Culture - Final
Lactobacillus casei
08/31/23 14:39 Blood/Venous Gram Stain - Final
09/06/23 15:39 Bronch Left Lower Lobe Respiratory Culture - Preliminary
Serratia marcescens
Pseudomonas aeruginosa
09/06/23 15:39 Bronch Left Lower Lobe Gram Stain - Preliminary
09/06/23 15:39 Bronch Left Lower Lobe Fungal Culture - Preliminary
Culture in progress.
Positive cultures are reported as soon as detected.
Final report to follow in four to five weeks.
08/31/23 14:39 Blood/Venous Blood Culture - Final
No Growth - Final Report
[2023-09-08] MEDS: VITAMIN B-12 1000 MCG PO (09:32)
[2023-09-08] MEDS: ROBITUSSIN 200 MG TUBE ×4 (09:32→22:12)
[2023-09-08] MEDS: FEOSOL 325 MG PO (09:32)
[2023-09-08] MEDS: NORVASC 10 MG PO (09:32)
[2023-09-08] MEDS: ASPIR LOW (ENTERIC COATED) 81 MG PO (09:32)
[2023-09-08] MEDS: SODIUM BICARBONATE 650 MG PO ×3 (09:32→22:12)
[2023-09-08] MEDS: LOPRESSOR 50 MG PO ×2 (09:32→20:34)
[2023-09-08] MEDS: VITAMIN D3 (cholecalciferol) 25 MCG PO (09:32)
[2023-09-08] MEDS: MAXIPIME 1000 MG IV ×2 (09:33→22:12)
[2023-09-08] MEDS: STERILE WATER FOR INJECTION 10 ML IV ×2 (09:33→22:12)
[2023-09-08] MEDS: FLUSH (NSS) 3 FLUSH IV (09:34)
[2023-09-08] MEDS: DESENEX/MITRAZOL/ZEASORB 1 APPLIC TOPICAL ×2 (09:34→20:33)
--- NOTE | 2023-09-08 10:22 | W.PN.ID1 ---
Date of Service
Date of Service: September 08, 2023
Today's Communication
tomorrow is final day of cefepime
Assessment / Plan
Episode of fever; source unclear
- temps down.
CKD
Chronic respiratory failure following COVID (2019); with Hx ECMO, current PM vent support
CAD
HTN
DM
Anemia
Recommendations:
Respiratory culture with Pseudomonas and Serratia. Unclear if colonizer or if causing true infection.
Continue with cefepime (d#4 of 5). Dose is still adjusted for renal insufficiency.
AFB and fungal cultures in progress
Monitor white count and temperature curve.
Blood cultures currently in progress- no growth to date. Will continue to monitor.
- prior cultures (08/30) with Lactobacillus; likely contaminate
Overall outlook remains guarded given multiple medical comorbidities.
Chief Complaint
-: Fever
Subjective / Review of Systems
tmax 100.3
bp stable
no leukocytosis, cr stable
fungal and afb cultures are in progress
no complaints
Vital Signs / Physical Exam
Vital Signs
Vital Signs
Temp Pulse Resp BP Pulse Ox
99.0 F 82 16 122/59 100
09/08/23 09:54 09/08/23 08:20 09/08/23 08:20 09/08/23 08:00 09/08/23 08:20
Physical Exam
Constitutional: No Acute Distress
Cardiovascular: Regular Rate and S1/S2; Negative Murmur or Rub
Pulmonary: Clear, Symmetric, Coarse and Non Labored; Negative Wheezes or Rales
Gastrointestinal: Soft, Non Tender, Non Distended and Normal Bowel Sounds
Skin: Warm and Dry; Negative Rash or Jaundice
Objective Data
Lab Data
Lab Results
09/07/23 05:01
09/07/23 05:01
PT 13.4 Sec (11.4-14.6) 08/31/23 14:39
INR 1.02 08/31/23 14:39
APTT 37.5 Sec (23.4-35.0) H 08/31/23 14:39
Estimated Creat Clear 23 ml/min 09/07/23 05:01
Lactic Acid Cancelled 08/31/23 18:45
Total Bilirubin 0.5 mg/dl (0.2-1.3) 08/31/23 20:18
AST 14 U/L (14-36) 08/31/23 20:18
ALT < 10 U/L (0-35) 08/31/23 20:18
Alkaline Phosphatase 63 U/L (38-126) 08/31/23 20:18
Most recent labs reviewed.
Micro Results:
09/06/23 15:39 Respiratory Culture - Final
Bronch Left Lower Lobe Serratia marcescens
Pseudomonas aeruginosa
Gram Stain - Final
09/05/23 13:11 Respiratory Culture - Final
Tracheal Aspirate Serratia marcescens
Pseudomonas aeruginosa
Gram Stain - Final
09/05/23 09:11 Blood Culture - Preliminary
Blood/Venous No Growth in 72 hours- Final report to follow
09/05/23 09:00 Blood Culture - Preliminary
Blood/Venous No Growth in 72 hours- Final report to follow
09/07/23 06:00 Acid Fast Bacilli Smear - Pending
Bronch Left Lower Lobe Acid Fast Bacilli Culture - Pending
08/31/23 14:39 Blood Culture - Final
Blood/Venous Lactobacillus casei
Gram Stain - Final
09/06/23 15:39 Fungal Culture - Preliminary
Bronch Left Lower Lobe Culture in progress.
Positive cultures are reported as soon as detected.
Final report to follow in four to five weeks.
08/31/23 14:39 Blood Culture - Final
Blood/Venous No Growth - Final Report
09/01/23 03:39 MRSA Screen - Final
Nose No Methicillin Resistant Staphylococcus aureus isolated.
08/31/23 14:39 Urine Culture - Final
Urine No Significant Growth
Imaging:
09/05/2023 CXR (portable): The left hemidiaphragm is again obscured suggesting opacification such as atelectasis and/or pneumonia and small left pleural effusion. Overall widespread pulmonary interstitial markings are again slightly prominent. There
is no pneumothorax or significant right pleural effusion.
08/19/2023 Renal ultrasound: Severe bilateral renal disease (left > right), increased since 2021. 4.8 mm nonobstructing left intrarenal calculus noted. No evidence for hydronephrosis.
--- NOTE | 2023-09-08 10:43 | W.PN.HOSP.TC ---
Today's Communication/Plan
-
Vent wean as tolerated
Antibiotics
Assessment / Plan
Assessment / Plan
62-year-old female with chronic tracheostomy uses ventilator at night and trach collar during the day. She was admitted recently and was discharged on 08/25/2023 but she was admitted with acute on chronic hypoxic hypercapnic respiratory failure with
opacification of the left hemithorax. Patient underwent bronchoscopy on 08/18/2023 mucous plugs removed from the left. BAL grew Proteus and completed 7-day course of Unasyn per ID. She also had CHINTAN with CKD stage IV FLAVIO inhibitor was held.
Ultrasound of the kidney showed bilateral renal disease. She comes back with decreased responsiveness.
Echo 08/18/2023-normal LV size and systolic function. Ejection fraction 60 to 65%. Mild concentric LVH. Normal diastolic function. Normal RV size and function. Mild TR. Pulmonary pressure 30 cm of mercury. Small pericardial effusion without
hemodynamic compromise
Patient is awake , drowsy
Chest few rales at bases
Cardiovascular system S1-S2 appreciated
No pedal edema
#Acute TME on admission and on 09/04/23
EEG, CT of the head all negative
Possible vent settings at home may need to be changed. She is on IPAP 13 EPAP at 5 at home-Family brought it in.
Video swallow evaluation when patient can be on a trach collar
Fever-likely respiratory source
S/P bronchoscopy 09/06/23
Respiratory cultures with pseudomonas and Serratia
Treat as Aspiration pneumonia
PT of the chest with cofflator
Blood cultures negative so far
Continue-cefepime- I prefer a 10 day course. Will discuss with ID
ID eval appreciated
ABG noted Both resp and met acidosis
#Central line- Femoral line removed and Right IJ placed 09/07/23
#Acute on chronic hypercapnic/hypoxemic respiratory failure:
-With acute respiratory acidosis
-Recently the patient's tidal volume has decreased to an average of less than 200cc nightly (will be rectified with [facility]).
-On mechanical ventilation now
-Wean as tolerated during day time
#One set of BC with lactobacillus Casei -Likely contaminant
#Anemia of chronic disease and Fe deficiency:
-s/p 2U pRBCs (on 09/01/23 and 09/03/23)
#Hypokalemia- Replaced
#Hypomagnesemia- Replaced
#Positive LILIAN Screen-OP Rheum Eval.
#CKD4, Cr at baseline. Sodium bicarb
#DM2: cont SSI/accuchecks Lantus 8 units.
#Hx of small to moderate pericardial effusion
#Essential hypertension: cont Norvasc/doxazosin.
#Hyperlipidemia: Continue statin
#Coronary artery disease status post angioplasty: cont ASA/BB
#h/o C. diff
#COVID pneumonia 2019 with ECMO and ventilator and 3-month hospital stay at [place]
#Ambulatory dysfunction wheelchair-bound since June 2019
#Spinal stenosis
#Overweight per BMI criteria
#Hypoalbuminemia
#Nutrition- Dobbhoff tube feeds.
#FULL CODE
#DVT prophylaxis-SC Heparin
Discussed with at bedside
Discussed with nursing
Medically complicated
Over all prognosis not good.
Anticipated Discharge: > 48 hours
Subjective/Interval History
-
Date of Service: September 08, 2023
Objective Data
-
Labs:
Laboratory Results
09/08/23 09/08/23
04:14 10:29
HCO3 20.2 L
Sodium Pending
Potassium Pending
Chloride Pending
Carbon Dioxide Pending
BUN Pending
Creatinine Pending
Glucose Pending
Calcium Pending
Vital Signs:
Vital Signs
Temp Pulse Resp BP Pulse Ox
99.0 F 82 16 122/59 100
09/08/23 09:54 09/08/23 08:20 09/08/23 08:20 09/08/23 08:00 09/08/23 08:20
I&O
09/07/23 09/08/23 09/09/23
06:59 06:59 06:59
Intake Total 1300 / 1300
Output Total 0 / 0
Balance 1300 / 1300
--- NOTE | 2023-09-08 11:36 | WOUNDNOTE ---
WO RN note: Patient incontinent of loose brown stool. Lupe care given and sacral and L ischial dressings changed. L ischial wound newly healed with chronic appearing discolored skin. Sacral/buttocks ulcers improved from last week. Skin on heels
intact. Patient is on a Sport air bed. Patient on NG tube feeding. Patient turned to L semi side lying position with help from LINDA Aaron. Heels off bed with pillow. She also has a foam turning wedge. Will follow as needed.
--- NOTE | 2023-09-08 11:42 | RESPNOTE ---
Attempts this AM at weaning (12/22) were unsuccessful. Patient with Apnea multiple periods within 5-10 minutes of starting wean. Placed back on AC settings
[2023-09-08 12:16] LABS: Glucose - Point of Care 156 mg/dl (70-99)
[2023-09-08 14:40] LABS: Blood Urea Nitrogen 30 mg/dl (7-17); Calcium 7.9 mg/dl (8.4-10.2); Carbon Dioxide 20 mmol/L (22-30); Chloride 113 mmol/L (98-107); Estimated Creatinine Clearance 24 ml/min; Glucose 163 mg/dl (70-99); Potassium 4.7 mmol/L (3.5-5.1); Sodium 137 mmol/L (135-145); eGFR 25.83
--- NOTE | 2023-09-08 14:46 | CM ---
met with patient at bedside who is non verbal.patient is on vent wean trial at night ,trach collar during day,sp bronch,has asp pna-on 10 day course of cefapime,has dht with tube feedings,may need a peg tube,has r ij placed,for trilogy
trial.Plan:seble with family when stable for dc.
[2023-09-08] MEDS: TYLENOL 1000 MG PO (16:06)
--- NOTE | 2023-09-08 17:23 | PTCARENOTE ---
Patient unable to tolerated CPAP today. Patient with large amounts of thick hansen secretions today. INC x2 of of large amounts loose dark brown/green stool. Patient with bilateral wrist restraints/ 4 side rails for protection to keep left nare
dobhoff in place. Patient tolerating tube feed of osmolite 1.2 @ 70 mls/hr with 25 mls/hr water flush. in room at bedside.
[2023-09-08 18:00] LABS: Glucose - Point of Care 197 mg/dl (70-99)
[2023-09-08] MEDS: LIPITOR 20 MG PO (18:36)
--- NOTE | 2023-09-08 20:00 | PTCARENOTE ---
Resumed care of pt laying in bed, arousable to voice. Pt opens eyes, nods head, but does not follow commands, will not squeeze this RN's hand. Makes no attempts to mouth words. Pt appears flat and withdrawn. HR in the 60's in NSR on the monitor. POX
100% with #6 Ex Long Shiley trach on current vent settings: AC 16, TV 450, Fio2 40%, Peep 5. Lungs dec t/o. Pt requires frequent suctioning. Oral care provided. Left nare DHT in place infusing Osmolite 1.2 @70ml/hr, 25ml/flush. Hyper bowel, round
abd. Pt inc of loose stools. Pt inc of urine. Sacral wound care provided. Lupe care provided. Pale skin. B/L foot drop noted. Palpable peripheral pulses present. +1 Anasarca noted, +3 Right hand pitting edema, and elevated on pillows. Heels elevated
on air pillow. Pt turned and repositioned. B/L wrist restraints in place for pt safety. Right Triple IJ in place, capped. Old Right femoral site dressing intact. Emotional support provided. Will continue to monitor.
[2023-09-08] MEDS: CARDURA 1 MG PO (22:12)
[2023-09-08] MEDS: LANTUS 0.08 UNITS SC (23:13)
[2023-09-08 23:26] LABS: Glucose - Point of Care 171 mg/dl (70-99)
[2023-09-09] VITALS (13 sets, daily range): BP systolic 96–172; BP diastolic 57–151
--- NOTE | 2023-09-09 06:25 | PTCARENOTE ---
Pt inc of copious amounts of liquid brown stool. Rectal trumpet now in place. Lupe care provided. No other changes in assessment noted at this time. Will continue to monitor
[2023-09-09] MEDS: NOVOLOG FLEXPEN-LOW RESISTANCE 1 UNITS SC ×2 (06:29→23:04)
[2023-09-09 06:39] LABS: Glucose - Point of Care 192 mg/dl (70-99)
[2023-09-09] MEDS: DUONEB 3 ML INH (07:26)
--- NOTE | 2023-09-09 08:45 | W.PN.HOSP.TC ---
Addendum entered and electronically signed by Helena Bishop MD 09/09/23 09:51:
updated on the phone.
[facility] is not functional GI to kindly take a look
Original Note:
Today's Communication/Plan
-
Continue antibiotics- I prefer 10 days as she still has secretions and not been able to be weaned yet.
I will try 1 dose of Lasix today
Ventilator wean as tolerated
Assessment / Plan
Assessment / Plan
62-year-old female with chronic tracheostomy uses ventilator at night and trach collar during the day. She was admitted recently and was discharged on 08/25/2023 but she was admitted with acute on chronic hypoxic hypercapnic respiratory failure with
opacification of the left hemithorax. Patient underwent bronchoscopy on 08/18/2023 mucous plugs removed from the left. BAL grew Proteus and completed 7-day course of Unasyn per ID. She also had CHINTAN with CKD stage IV FLAVIO inhibitor was held.
Ultrasound of the kidney showed bilateral renal disease. She comes back with decreased responsiveness.
Echo 08/18/2023-normal LV size and systolic function. Ejection fraction 60 to 65%. Mild concentric LVH. Normal diastolic function. Normal RV size and function. Mild TR. Pulmonary pressure 30 cm of mercury. Small pericardial effusion without
hemodynamic compromise
Patient is awake
Chest few rales at bases
Cardiovascular system S1-S2 appreciated
No pedal edema
#Acute TME on admission and on 09/04/23
EEG, CT of the head all negative
Possible vent settings at home may need to be changed. She is on IPAP 13 EPAP at 5 at home-Family brought it in.
Video swallow evaluation when patient can be on a trach collar
Fever-likely respiratory source
S/P bronchoscopy 09/06/23
ENT consult - #6 Romero Wynne) placed on 09/06/2023- as there was concern for air leak
Respiratory cultures with pseudomonas and Serratia
Treat as Aspiration pneumonia
PT of the chest with cofflator
Blood cultures negative so far
Continue-cefepime- I prefer a 10 day course given continued secretions from tracheostomy and inability to wean
ID eval appreciated
Chest x-ray reviewed-increased opacification of the left hemithorax
Unfortunately she has mucous plugging frequently
Required a bronchoscopy last admission also.
#Central line- Femoral line removed and Right IJ placed 09/07/23
#Acute on chronic hypercapnic/hypoxemic respiratory failure:
-With acute respiratory acidosis
-Recently the patient's tidal volume has decreased to an average of less than 200cc nightly (will be rectified with [employer]).
-On mechanical ventilation now
-Wean as tolerated during day time
#One set of BC with lactobacillus Casei -Likely contaminant
#Anemia of chronic disease and Fe deficiency:
-s/p 2U pRBCs (on 09/01/23 and 09/03/23)
#Hypokalemia- Replaced
#Hypomagnesemia- Replaced
#Positive LILIAN Screen-OP Rheum Eval.
#CKD4, Cr at baseline. Sodium bicarb
#DM2: cont SSI/accuchecks Lantus 8 units.
#Hx of small to moderate pericardial effusion
#Essential hypertension: cont Norvasc/doxazosin.
#Hyperlipidemia: Continue statin
#Coronary artery disease status post angioplasty: cont ASA/BB
#h/o C. diff
#COVID pneumonia 2019 with ECMO and ventilator and 3-month hospital stay at [place]
#Ambulatory dysfunction wheelchair-bound since June 2019
#Spinal stenosis
#Overweight per BMI criteria
#Hypoalbuminemia
#Nutrition- Dobbhoff tube feeds.
#FULL CODE
#DVT prophylaxis-SC Heparin
Medically complicated
Over all prognosis not good.
She only weaned for half-hour yesterday and became tachypneic. I had discussed with the and daughter regarding consideration of PEG tube. They wanted to think about it and see how the wean vent. If she is not able to be weaned off during
daytime may need a PEG tube placement this admission. And this was discussed 09/07/23
time 54 min
Anticipated Discharge: > 48 hours
Subjective/Interval History
-
Date of Service: September 09, 2023
Objective Data
-
Vital Signs:
Vital Signs
Temp Pulse Resp BP Pulse Ox
98.6 F 88 26 157/74 100
09/09/23 08:27 09/09/23 07:31 09/09/23 07:31 09/09/23 06:00 09/09/23 07:31
I&O
09/08/23 09/09/23 09/10/23
06:59 06:59 06:59
Intake Total 1300 / 1300 2190 / 2190
Output Total 0 / 0
Balance 1300 / 1300 2190 / 2190
[2023-09-09] MEDS: NORVASC 10 MG PO (08:47)
[2023-09-09] MEDS: FEOSOL 325 MG PO (08:49)
[2023-09-09] MEDS: VITAMIN B-12 1000 MCG PO (08:49)
[2023-09-09] MEDS: VITAMIN D3 (cholecalciferol) 25 MCG PO (08:49)
[2023-09-09] MEDS: SODIUM BICARBONATE 650 MG PO ×3 (08:49→22:04)
[2023-09-09] MEDS: ASPIR LOW (ENTERIC COATED) 81 MG PO (08:49)
[2023-09-09] MEDS: ROBITUSSIN 200 MG TUBE ×4 (08:50→22:04)
[2023-09-09] MEDS: HEPARIN 5000 UNITS SC ×3 (08:50→23:06)
[2023-09-09] MEDS: LOPRESSOR 50 MG PO ×2 (08:50→20:44)
[2023-09-09] MEDS: DESENEX/MITRAZOL/ZEASORB 1 APPLIC TOPICAL ×2 (08:51→20:44)
[2023-09-09] MEDS: STERILE WATER FOR INJECTION 10 ML IV ×2 (08:51→21:51)
[2023-09-09] MEDS: MAXIPIME 1000 MG IV ×2 (08:51→21:51)
[2023-09-09] MEDS: LASIX 40 MG IV (10:05)
--- NOTE | 2023-09-09 10:27 | W.PN.UPDATE ---
Addendum entered and electronically signed by Cece Acevedo NP 09/09/23 11:31:
Reviewed XR imaging with radiology, and per them the dobhoff tube is in satisfactory position in the stomach. The tube flushed without difficulty and the guidewire was removed. OK to use for feeding and medications. The primary RN was made aware.
Original Note:
Update Note
Progress Note Update
We were asked to evaluate for a clogged dobhoff tube. I reviewed the chart prior. The tube was assessed and unable to be flushed therefore removed. A new tube was assessed for patency prior to placement. I discussed with the pt regarding the need
for replacement of the feeding tube for nutrition and medications, which she was agreeable to. I advanced the tube via the right nare without difficulty to 60cm (where prior tube was taped). Placement confirmed via auscultation at the level of the
stomach with air instillation. Her vital signs were stable after placement with no hypoxia or distress. Urgent abdominal XR was ordered to confirm placement prior to use. The nurse was at the bedside and made aware to wait XR prior to use.
--- NOTE | 2023-09-09 10:52 | W.PN.ID1 ---
Date of Service
Date of Service: September 09, 2023
Today's Communication
Continue with cefepime today
CXR complete opacification of L hemithorax - getting chest pt
Assessment / Plan
Episode of fever; source unclear
- temps down.
CKD
Chronic respiratory failure following COVID (2019); with Hx ECMO, current PM vent support
CAD
HTN
DM
Anemia
Recommendations:
CXR: opacified L hemithorax today - likely plugging which is ongoing, getting chest pt
CXR 09/07: most likely atelectasis with retrocardiac opacity
Respiratory culture with Pseudomonas and Serratia. Unclear if colonizer or if causing true infection.
Continue with cefepime (d#5 of 5) discussed with Dr Bishop
AFB and fungal cultures in progress
Monitor white count and temperature curve.
Blood cultures currently in progress- no growth to date. Will continue to monitor.
- prior cultures (08/30) with Lactobacillus; likely contaminate
Overall outlook remains guarded given multiple medical comorbidities.
Chief Complaint
-: Fever
Subjective / Review of Systems
afebrile
bp stable
fio2 remains 40%
no cbc today
cr stable
getting chest pt
Vital Signs / Physical Exam
Vital Signs
Vital Signs
Temp Pulse Resp BP Pulse Ox
98.6 F 95 26 163/70 98
09/09/23 08:27 09/09/23 08:47 09/09/23 07:31 09/09/23 10:05 09/09/23 08:00
Physical Exam
Constitutional: No Acute Distress and Chronically Ill
Cardiovascular: Regular Rate and S1/S2; Negative Murmur or Rub
Pulmonary: Clear and Symmetric; Negative Wheezes or Rales
Gastrointestinal: Soft, Non Tender, Non Distended and Normal Bowel Sounds
Skin: Warm and Dry; Negative Rash or Jaundice
Objective Data
Lab Data
Lab Results
09/07/23 05:01
09/08/23 14:10
PT 13.4 Sec (11.4-14.6) 08/31/23 14:39
INR 1.02 08/31/23 14:39
APTT 37.5 Sec (23.4-35.0) H 08/31/23 14:39
Estimated Creat Clear 24 ml/min 09/08/23 14:10
Lactic Acid Cancelled 08/31/23 18:45
Total Bilirubin 0.5 mg/dl (0.2-1.3) 08/31/23 20:18
AST 14 U/L (14-36) 08/31/23 20:18
ALT < 10 U/L (0-35) 08/31/23 20:18
Alkaline Phosphatase 63 U/L (38-126) 08/31/23 20:18
Most recent labs reviewed.
Micro Results:
09/05/23 09:11 Blood Culture - Preliminary
Blood/Venous No Growth in 4 days- Final report to follow
09/05/23 09:00 Blood Culture - Preliminary
Blood/Venous No Growth in 4 days- Final report to follow
09/06/23 15:39 Respiratory Culture - Final
Bronch Left Lower Lobe Serratia marcescens
Pseudomonas aeruginosa
Gram Stain - Final
09/05/23 13:11 Respiratory Culture - Final
Tracheal Aspirate Serratia marcescens
Pseudomonas aeruginosa
Gram Stain - Final
09/07/23 06:00 Acid Fast Bacilli Smear - Pending
Bronch Left Lower Lobe Acid Fast Bacilli Culture - Pending
08/31/23 14:39 Blood Culture - Final
Blood/Venous Lactobacillus casei
Gram Stain - Final
09/06/23 15:39 Fungal Culture - Preliminary
Bronch Left Lower Lobe Culture in progress.
Positive cultures are reported as soon as detected.
Final report to follow in four to five weeks.
08/31/23 14:39 Blood Culture - Final
Blood/Venous No Growth - Final Report
09/01/23 03:39 MRSA Screen - Final
Nose No Methicillin Resistant Staphylococcus aureus isolated.
08/31/23 14:39 Urine Culture - Final
Urine No Significant Growth
Imaging:
09/05/2023 CXR (portable): The left hemidiaphragm is again obscured suggesting opacification such as atelectasis and/or pneumonia and small left pleural effusion. Overall widespread pulmonary interstitial markings are again slightly prominent. There
is no pneumothorax or significant right pleural effusion.
08/19/2023 Renal ultrasound: Severe bilateral renal disease (left > right), increased since 2021. 4.8 mm nonobstructing left intrarenal calculus noted. No evidence for hydronephrosis.
Care Review
Plan reviewed with: Physician (Dr Bishop - duration of antibiotics)
[2023-09-09 13:12] LABS: Glucose - Point of Care 147 mg/dl (70-99)
--- NOTE | 2023-09-09 13:33 | W.PN.PUL3 ---
Today's Communication / Plan
-
ACV
Aggressive VEST CPT
Mucomyst trach instillation/nebs
Alb ns
D/c DNs
Discontinue atbs
Assessment
-
Mrs Shruti Rockwell is a 62 year old F with history of chronic hypoxic/hypercarbic resp failure s/p trach, post COVID illness, who p/w CC shortness of breath. The patient was recently discharged from 08/25/23 for mucus plugging. Family states that on
day of admission, the patient had decreased responsiveness. She is placed on Trilogy at night/trach collar through the day. She has been sleeping more and less conversive. They have noticed her exhaled TV on Trilogy reporting on avg <200cc
nightly. Her baseline settings are TV 350/PS8/40%/5+. Per medics, the patient was initially on 15 L but desaturated to the 80s. She had to be bagged and her saturations did improve. She is placed on vent in ER and saturations are now improved.
CXR appears similar to prior. We are consulted for eval 09/01/23.
Impression:
Hypoxemic and hypercapnic respiratory failure due to recurrent mucous plug/left lung atelectasis
ABG 08/17/2023--52/59/7 0.24
Ventilator dependent respiratory failure
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
Status post emergent bronchoscopy at the bedside 08/18/2023-mucous plugs removed from the left
Pneumonia - SCx from 09/04 and BAL from 09/05 growing Serratia marcescens + Pseudomonas aeruginosa
Left pleural effusion
CHINTAN (Cr baseline 2.1)
Anemia-normocytic
Hypocalcemia
Hypernatremia
Metabolic and respiratory acidosis
Conditions present prior to admission:
Chronic hypercapnic/hypoxemic respiratory failure/chronic tracheostomy/nocturnal ventilation.
Severe Covid/ECMO 2019.
Diabetes.
Hypertension.
CAD/angioplasty 2020.
Recurrent UTI.
Ambulatory dysfunction/wheelchair-bound.
Chronic anemia.
Overweight.
Renal calculi.
Laparoscopic cholecystectomy 07/2020. Bilateral ureteroscopy with lithotripsy of the right renal stone and clearing of left renal pelvic fungal ball. Laminectomy. .
Plan
Presentation this admission with lethargy. Found to be hypercapnic.
Discharged from on 08/25/23 after emergent bronchoscopy performed 08/18/2023 with some mucous plugs removed
ABG on presentation: 7.24 -54 -206 prior ABG 7.2 -55, 7.13 -68
Family notes she has been on vent during the day prior to admission.
CXR 08/30 with similar appearance-no significant atelectasis.
Most recent download report from [facility] 08/16/23 showing usage 9.3 avg hours - MV 5.7 L/min - RR 23 - IPAP/EPAP 12.6/4.9 cm water - Avg VTe 249.1 - leak 32.5 L/min
Settings: Mode S, IPAP 13 EPAP 5
-
In the last few weeks [facility], has noticed decline in TV to <200 on avg nightly
Not sure how settings were changed as she should have been on AC-equivalent TV 350/PS 8/40%/PEEP 5 per last office note
Symptoms resolved after being placed on ventilator here in the hospital.
Will need to make sure her ventilator settings are home are adjusted as above.
Will need to discuss with her [employer] to adjust ventilator settings. Prior to discharge. --> brought in patient's Trilogy machine here so that we can place pt onto this prior to discharge to assure she is tolerating it with stable blood
gas measurements and adequate SpO2 and VTe --> would keep patient on our own ventilator until patient is close to discharge at which time we can place onto her own ventilator to see if she has adequate ventilation and oxygenation.
Continue mechanical ventilation ATC today, and every day we should attempt PS trials first on PS 5, PEEP of 8, then eventually CPAP 5/5.
On ACV at 16-450-5-0.4. Pk pr low 40s, plt pr 26
Continue with Mucomyst and nebulizers as needed/airway clearance
Continue with mucolytics
CPAP/pressure support and trach collar weans--okay to use pressure support today. Will avoid trach collar for now.
Aspiration precautions
Routine tracheostomy tube care continues
Prescribed a sport bed and advised RT to suction often with cofflator through the trach; ok to change mucomyst and Duonebs from q6hr to TID, and will obtain serial CXR to assure her L-sided atelectasis improves --> her CXR from 2100 on 09/03 showed
improvement of her left-sided complete whiteout. However she still continues to have left-sided atelectasis --> CXR on AM of 09/05 shows persistent L-atelectasis. Performed bronchoscopy on 09/05 for pulmonary toilet purposes and BAL of LLL --> Cx
grew Serratia marcescens + Pseudomonas aeruginosa � follow-up sensitivities
During the bronch, there was a mucosal abnormality at her LLL at the secondary fran, which appeared white/shiny --> concern for dysplasia. Cytology negative for malignancy.
Discontinued antibiotics on 2023: Afebrile. Cultures negative. Fever again on AM of 09/04 --> ABx restarted with cefepime; trach secs culture 09-04 + BAL 09-05 both growing Serratia marcescens + Pseudomonas aeruginosa.
On cefepime.
Repeat BCx x 2 (collected 09/04): so far negative
Positive blood culture 08-30 suspect contaminant (Lactob casei)
D/w Dr Pollard length of atb course, ok to d/c from my perspective but will follow closely (completed 5 d cefepime 09-08)
Recurrent microaspiration also has been contemplated in the past. She has been evaluated by speech therapy multiple times in the past. Diet has been modified.
Primary team ordered video barium swallow--> unfortunately patient is not safe to be placed back onto trach collar at this time. Dobbhoff placed by primary team and will need to evaluate this daily; she may end up needing G-tube prior to discharge
if unable to be weaned back down to trach collar during the day
ENT consult placed by me to evaluate her tracheostomy given occasional reduction in TVe; unknown if the tracheostomy cuff is dysfunctional or she needs a different size. Dr. Powell evaluated her on 09/05 --> #[id number] placed on 09/05 ([facility]); please
make sure that extra tracheostomy is at bedside.
Anemia: Transfused on 09/01/2023 + 09/03/2023 (1 U PRBC each day)
trend Hb and transfuse as needed to keep >7g/dL
Follow renal function
I/Os, daily weights
DVT prophylaxis-on heparin
Early mobilization/bedside range of motion-baseline wheelchair-bound and ambulatory dysfunction
Continue her tube feeds via NG tube � if patient unable to be successfully weaned to trach collar over the weekend then would consult GI on Monday for PEG, assuming that family agrees to this
IV access:
Left femoral triple-lumen catheter/CVC: Placed 08/31/2023 in ER --> removed on 09/06
RIJ TLC placed 09-06
The patient was last seen in the pulmonary office by Kalpana Mobley NP 06/01/2023 and has an appointment 09/07/2023 at 10:30 AM --> this will be re-scheduled.
Can eval for discharge planning once Trilogy issue resolved and new pneumonia effectively treated.
D/w RT and RN
Diagnostic Data:
CXR 04-27, reviewed, L basilar atelectasis
CXR 04-19, resolved total L atelectasis, currently back to chronic L basilar atelectasis. New tracheostomy
CXR 04-16, portable, L basilar atelectasis
CXR 04/11/22- . Complete opacification of the left hemithorax, likely on the basis of a large pleural effusion and compressive atelectasis upon the left lung. Mild right basilar pneumonia suspected
Chest x-ray 08/17/2023-near complete opacification throughout the left Jovanni thorax
Echocardiogram 01/10/22-EF 60-65%, no significant valvular disease, small pericardial effusion
Echocardiogram 03/22/22: Normal left ventricular chamber size. Normal left ventricular systolic�function. Normal regional wall motion. Normal left ventricular wall thickness.�Left ventricular ejection fraction is 60-65%. Mild tricuspid
regurgitation.�Small to moderate pericardial effusion without evidence of hemodynamic�compromise.�Compared to the previous echo Dec 2021, there is no significant change.
CT CHEST 04/11/22- �A moderate to large left pleural effusion and complete collapse/atelectasis of the left lung account for the left hemithorax opacification on the prior chest radiograph. Findings are in part likely secondary to mucous plugging
given the presence of opacification of the left mainstem bronchus and left upper and lower lobe bronchi, patchy opacifications right middle and lower lobe suspicious for pneumonia, moderate right pleural effusion and ill-defined sclerotic lesion
T12, osseous metastasis not completely excluded
CT CHEST 03/22/22 - There is no CT evidence for pulmonary embolism. No aortic dissection.There are extremely large bilateral pleural effusions right greater than left and associated bilateral consolidation most prominent in the left lower
lobe.Cardiomegaly. Increased pericardial effusion.
CT chest 08/17/2023-occluded left mainstem bronchus presumably mucous plugs with complete atelectasis left lung moderate size left pleural effusion, small to moderate right pleural effusion
VSE 04/28/22: No aspiration. Laryngeal penetration with cough with thin liquids by cup.
Spirometry 09/09/21-FEV1 790 mL-36%, FVC 790 mL 27%. Some difficulties with maneuver and thus may offer unreliability. Severe restriction.�������
PFT 02/08/22-FVC 1.01/30%, FEV1 0.70/35%, ratio 69%, unable to perform lung volumes and diffusing capacity.
Subjective Data
-
Date of Service:
Date of Service: September 09, 2023
Chief Complaint: Pulmonary Follow Up (Acute respiratory failure/mucous plugging.)
Subjective:
Recurrent complete left atelectasis noted on x-ray
Discussed with Dr. Pollard from [place] earlier this morning regarding length of antibiotic therapy. In her opinion antibiotics can be completed 5 days course only
On chronic mechanical ventilation has tracheostomy in place, currently on assist-control ventilation. She is lethargic
Review of Systems
General: Other (Lethargic)
Objective Data
Data Reviewed
Vital Signs / I&O / Oxygen:
Vital Signs
Temp Pulse Resp BP Pulse Ox
98.7 F 95 26 163/70 100
09/09/23 11:39 09/09/23 08:47 09/09/23 07:31 09/09/23 10:05 09/09/23 12:00
Intake and Output
09/08/23 09/09/23 09/10/23
06:59 06:59 06:59
Intake Total 1300 / 1300 2190 / 2190
Output Total 0 / 0
Balance 1300 / 1300 2190 / 2190
SaO2 [A/C] 100
SaO2 100
Physical Exam
General: Respiratory Distress (n) and Comfortable
HEENT: Normocephalic, Anicteric and Tracheotomy
Cardiovascular: S1-S2 and Peripheral Edema (+1 lower extremity edema (L>R))
Respiratory: Wheeze (Negative), Crackles (Bilaterally), Rhonchi (Bilaterally (L >R)), Non-Labored Respirations and Other (Mechanical breath sounds heard bilaterally)
GI: Soft, Non Distended, Non Tender and Normal Bowel Sounds
Neurology: Lethargic and Other (Confused at times)
Skin: Warm and Dry
Labs/Micro/Reports
Lab Data
09/07/23 05:01
09/08/23 14:10
Microbiology
09/05/23 09:11 Blood/Venous Blood Culture - Preliminary
No Growth in 4 days- Final report to follow
09/05/23 09:00 Blood/Venous Blood Culture - Preliminary
No Growth in 4 days- Final report to follow
09/06/23 15:39 Bronch Left Lower Lobe Respiratory Culture - Final
Serratia marcescens
Pseudomonas aeruginosa
09/06/23 15:39 Bronch Left Lower Lobe Gram Stain - Final
09/05/23 13:11 Tracheal Aspirate Respiratory Culture - Final
Serratia marcescens
Pseudomonas aeruginosa
09/05/23 13:11 Tracheal Aspirate Gram Stain - Final
08/31/23 14:39 Blood/Venous Blood Culture - Final
Lactobacillus casei
08/31/23 14:39 Blood/Venous Gram Stain - Final
09/06/23 15:39 Bronch Left Lower Lobe Fungal Culture - Preliminary
Culture in progress.
Positive cultures are reported as soon as detected.
Final report to follow in four to five weeks.
[2023-09-09] MEDS: NOVOLOG FLEXPEN-LOW RESISTANCE SC (13:42)
[2023-09-09] MEDS: MUCOMYST 10% 4 ML INH ×2 (13:50→19:33)
[2023-09-09] MEDS: VENTOLIN NEBULES 2.5 MG INH ×3 (13:51→19:33)
[2023-09-09 14:00] LABS: B.E. -4.5 mmol/L; HCO3 21.1 mmol/L (21-28); O2 Saturation % 99.1 % (94-98); PCO2 40 mmHg (32-35); PO2 83 mmHg (83-108); pH 7.33 (7.35-7.45)
[2023-09-09] MEDS: LIPITOR 20 MG PO (18:06)
[2023-09-09] MEDS: NOVOLOG FLEXPEN-LOW RESISTANCE 2 UNITS SC (18:07)
[2023-09-09 18:11] LABS: Glucose - Point of Care 212 mg/dl (70-99)
--- NOTE | 2023-09-09 18:20 | PTCARENOTE ---
pt remains somnolent throughout shift. Dobhoff w/ tf running through L nare. Pt w/ B/L wrist restraints in place d/t pt making repeated attempts to remove tube. Grossly incontinent of urine multiple times throughout shift. Rectal trumpet in place
draining liquid stool. at bedside for extended period of times and updated on plan of care, understanding of pt condition. Emotional care provided.
[2023-09-09] MEDS: CARDURA 1 MG PO (21:51)
[2023-09-09] MEDS: LANTUS 0.08 UNITS SC (23:04)
[2023-09-09 23:20] LABS: Glucose - Point of Care 180 mg/dl (70-99)
[2023-09-10] VITALS (12 sets, daily range): BP systolic 143–167; BP diastolic 64–91
[2023-09-10] MEDS: MUCOMYST 10% 4 ML INH ×4 (01:32→19:51)
[2023-09-10] MEDS: VENTOLIN NEBULES 2.5 MG INH ×5 (01:33→19:51)
[2023-09-10] MEDS: NOVOLOG FLEXPEN-LOW RESISTANCE 1 UNITS SC ×4 (05:13→23:46)
[2023-09-10 05:29] LABS: Glucose - Point of Care 191 mg/dl (70-99)
[2023-09-10 05:36] LABS: Hematocrit 27.2 % (37.0-47.0); Hemoglobin 8.3 g/dL (12.0-16.0); Mean Corp Hgb Conc. 30.5 g/dL (33.0-37.0); Mean Corpuscular Hgb 28.1 pg (27.0-31.0); Mean Corpuscular Volume 92.2 fL (81.0-99.0); Mean Platelet Volume 11.7 fL (7.4-10.4); Platelet Count 183 10^3/uL (130-400); Red Blood Cell Count 2.95 10^6/uL (4.20-5.40); Red Cell Dist. Width 15.6 % (11.5-14.5); White Blood Cell Count 7.4 10^3/uL (4.8-10.8)
[2023-09-10 05:46] LABS: Blood Urea Nitrogen 37 mg/dl (7-17); Carbon Dioxide 23 mmol/L (22-30); Chloride 110 mmol/L (98-107); Estimated Creatinine Clearance 24 ml/min; Glucose 178 mg/dl (70-99); Sodium 139 mmol/L (135-145); eGFR 25.83
[2023-09-10 05:53] LABS: Potassium 5.3 mmol/L (3.5-5.1)
--- NOTE | 2023-09-10 06:12 | W.PN.HOSP.TC ---
Today's Communication/Plan
-
Hold Tube feeds after midnight as per pulm, possible bronchoscopy tomorrow 09/10
wean off vent as tolerated
monitor K
abx as per ID
glycemic control
Assessment / Plan
Assessment / Plan
Physical Exam
General: no acute distress appears comfortable
HEENT: Normocephalic Atraumatic Dobhoff in place
Pulm: diffuse rhonchi
Abd: soft nontender bowel sounds present
Ext: no pitting edema noted
Neuro: Nonverbal though Awake Alert
62-year-old female with chronic tracheostomy uses ventilator at night and trach collar during the day. She was admitted recently and was discharged on 08/25/2023 but she was admitted with acute on chronic hypoxic hypercapnic respiratory failure with
opacification of the left hemithorax. Patient underwent bronchoscopy on 08/18/2023 mucous plugs removed from the left. BAL grew Proteus and completed 7-day course of Unasyn per ID. She also had CHINTAN with CKD stage IV FLAVIO inhibitor was held.
Ultrasound of the kidney showed bilateral renal disease. She comes back with decreased responsiveness.
Echo 08/18/2023-normal LV size and systolic function. Ejection fraction 60 to 65%. Mild concentric LVH. Normal diastolic function. Normal RV size and function. Mild TR. Pulmonary pressure 30 cm of mercury. Small pericardial effusion without
hemodynamic compromise
#Acute TME on admission and on 09/04/23
EEG, CT of the head all negative
Possible vent settings at home may need to be changed. She is on IPAP 13 EPAP at 5 at home-Family brought it in.
Video swallow evaluation when patient can be on a trach collar
Fever-likely respiratory source
S/P bronchoscopy 09/06/23
ENT consult - #6 Romero Wynne) placed on 09/06/2023- as there was concern for air leak
Respiratory cultures with pseudomonas and Serratia
Treat as Aspiration pneumonia
PT of the chest with cofflator
ID eval appreciated completed 5 days cefipime, patient to start renally dosed Levofloxacin if relapses/develops fever
Chest x-ray reviewed-increased opacification of the left hemithorax
Unfortunately she has mucous plugging frequently
Required a bronchoscopy last admission also.
Tentative plan for repeat Bronchoscopy 09/10 as per pulm, tube feeds hold after midnight
#Central line- Femoral line removed and Right IJ placed 09/07/23
#Acute on chronic hypercapnic/hypoxemic respiratory failure:
-With acute respiratory acidosis
-Recently the patient's tidal volume has decreased to an average of less than 200cc nightly (will be rectified with [employer]).
-On mechanical ventilation now
-Wean as tolerated during day time
#One set of BC with lactobacillus Casei -Likely contaminant
#Anemia of chronic disease and Fe deficiency:
-s/p 2U pRBCs (on 09/01/23 and 09/03/23)
-H&H appears stable at this time
#Hypokalemia
#Hypomagnesemia
#hypocalcemia
monitor and replete as necessary
#Mild Hyperkalemia
K 5.3
monitor for now
consider alternate tube feed with less potassium if hyperkalemia persists worsens
#Positive LILIAN Screen-OP Rheum Eval.
#CKD4, Cr at baseline. Sodium bicarb
#DM2: cont SSI/accuchecks Lantus 8 units.
#Hx of small to moderate pericardial effusion
#Essential hypertension: cont Norvasc/doxazosin.
#Hyperlipidemia: Continue statin
#Coronary artery disease status post angioplasty: cont ASA/BB
#h/o C. diff
#COVID pneumonia 2019 with ECMO and ventilator and 3-month hospital stay at [facility]
#Ambulatory dysfunction wheelchair-bound since June 2019
#Spinal stenosis
#Overweight per BMI criteria
#Hypoalbuminemia
#Nutrition- Dobbhoff tube feeds replaced by GI. Patient may require PEG, discussed with patient's family
#FULL CODE
#DVT prophylaxis-SC Heparin
Medically complicated
Over all prognosis not good.
I spent a total of 55 minutes with the patient or on the floor. More than 50% of this time involved counseling and coordination of care.
Anticipated Discharge: > 48 hours
Subjective/Interval History
-
Date of Service: September 10, 2023
Seen and examined at bedside in no acute distress resting comfortably in bed. Sleeping, easily woken, spontaneous eye movements but nonverbal this morning, vacant stare, not answering questions or making any head gestures.
Objective Data
-
Labs:
Laboratory Results
09/10/23
04:15
WBC 7.4
Hgb 8.3 L
Hct 27.2 L
Plt Count 183
Sodium 139
Potassium 5.3 H
Chloride 110 H
Carbon Dioxide 23
BUN 37 H
Creatinine 2.1 H
Glucose 178 H
Calcium 8.0 L
Vital Signs:
Vital Signs
Temp Pulse Resp BP Pulse Ox
100.0 F 82 22 155/64 94
09/10/23 03:54 09/10/23 02:00 09/10/23 02:00 09/10/23 02:00 09/10/23 04:00
I&O
09/08/23 09/09/23 09/10/23
06:59 06:59 06:59
Intake Total 1300 / 1300 2189 / 2189
Output Total 0 / 0
Balance 1300 / 1300 2189 / 2189
--- NOTE | 2023-09-10 08:09 | W.PN.PUL3 ---
Today's Communication / Plan
-
MV
CPT
Potential bronch 09-10 or later depending on response
Hold tube feedings at [place]
Assessment
-
Mrs Shruti Rockwell is a 62 year old F with history of chronic hypoxic/hypercarbic resp failure s/p trach, post COVID illness, who p/w CC shortness of breath. The patient was recently discharged from 08/25/23 for mucus plugging. Family states that on
day of admission, the patient had decreased responsiveness. She is placed on Trilogy at night/trach collar through the day. She has been sleeping more and less conversive. They have noticed her exhaled TV on Trilogy reporting on avg <200cc
nightly. Her baseline settings are TV 350/PS8/40%/5+. Per medics, the patient was initially on 15 L but desaturated to the 80s. She had to be bagged and her saturations did improve. She is placed on vent in ER and saturations are now improved.
CXR appears similar to prior. We are consulted for eval 09/01/23.
Impression:
Hypoxemic and hypercapnic respiratory failure due to recurrent mucous plug/left lung atelectasis
ABG 08/17/2023--52/59/7 0.24
Ventilator dependent respiratory failure
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
Status post emergent bronchoscopy at the bedside 08/18/2023-mucous plugs removed from the left
Pneumonia - SCx from 09/04 and BAL from 09/05 growing Serratia marcescens + Pseudomonas aeruginosa
Left pleural effusion
CHINTAN (Cr baseline 2.1)
Anemia-normocytic
Hypocalcemia
Hypernatremia
Metabolic and respiratory acidosis
Conditions present prior to admission:
Chronic hypercapnic/hypoxemic respiratory failure/chronic tracheostomy/nocturnal ventilation.
Severe Covid/ECMO 2019.
Diabetes.
Hypertension.
CAD/angioplasty 2020.
Recurrent UTI.
Ambulatory dysfunction/wheelchair-bound.
Chronic anemia.
Overweight.
Renal calculi.
Laparoscopic cholecystectomy 07/2020. Bilateral ureteroscopy with lithotripsy of the right renal stone and clearing of left renal pelvic fungal ball. Laminectomy. .
Plan
Presentation this admission with lethargy. Found to be hypercapnic.
Discharged from on 08/25/23 after emergent bronchoscopy performed 08/18/2023 with some mucous plugs removed
ABG on presentation: 7.24 -54 -206 prior ABG 7.2 -55, 7.13 -68
Family notes she has been on vent during the day prior to admission.
CXR 08/30 with similar appearance-no significant atelectasis.
Most recent download report from [facility] 08/16/23 showing usage 9.3 avg hours - MV 5.7 L/min - RR 23 - IPAP/EPAP 12.6/4.9 cm water - Avg VTe 249.1 - leak 32.5 L/min
Settings: Mode S, IPAP 13 EPAP 5
In the last few weeks [employer], has noticed decline in TV to <200 on avg nightly
Not sure how settings were changed as she should have been on AC-equivalent TV 350/PS 8/40%/PEEP 5 per last office note
Symptoms resolved after being placed on ventilator here in the hospital.
Will need to make sure her ventilator settings are home are adjusted as above.
Will need to discuss with her [employer] to adjust ventilator settings. Prior to discharge. --> brought in patient's Trilogy machine here so that we can place pt onto this prior to discharge to assure she is tolerating it with stable blood
gas measurements and adequate SpO2 and VTe --> would keep patient on our own ventilator until patient is close to discharge at which time we can place onto her own ventilator to see if she has adequate ventilation and oxygenation.
Continue mechanical ventilation ATC
On ACV at 16-450-5-0.4. Pk pr 36, plt pr 27
Aspiration precautions
Routine tracheostomy tube care continues
Sport bed
CXR from 21:00 on 09/03 showed improvement of her left-sided complete whiteout. However she still continues to have left-sided atelectasis -->
CXR on AM of 09/05 shows persistent L-atelectasis.
Dr Epstein performed bronchoscopy on 09/05 for pulmonary toilet purposes and BAL of LLL --> Cx grew Serratia marcescens + Pseudomonas aeruginosa � follow-up sensitivities
During bronch, there was a mucosal abnormality at her LLL at the secondary fran, which appeared white/shiny --> concern for dysplasia but cytology negative for malignancy.
CXR 09-08 with recurrent L atelectasis
Started VEST/mucomyst trach instillations and alb nebs q6h
DNs changed to alb nebs as above and prn
Follow up CXR 09-09 still with no change in L atelectasis
Will continue aggressive CPT, hopefully will achieve improvement of L atelectasis and avoid repeat bronchoscopy
Portable CXR 09-10 ordered
D/w patient's and daughter who joined via [employer] this afternoon by 4:10 pm, consent signed in chart, witnessed by RN. and daughter will be visiting since about 8 am tomorrow morning and will appreciate pulm input re bronchoscopy
tomorrow or continuation of CPT
Hold enteral feedings at [place] tonight
Discontinued antibiotics on 2023: Afebrile. Cultures negative. Fever again on AM of 09/04 --> ABx restarted with cefepime; trach secs culture 09-04 + BAL 09-05 both growing Serratia marcescens + Pseudomonas aeruginosa.
On cefepime.
Repeat BCx x 2 (collected 09/04): so far negative
Positive blood culture 08-30 suspect contaminant (Lactob casei)
D/w Dr Pollard length of atb course, ok to d/c from my perspective but will follow closely (completed 5 d cefepime 09-08)
Recurrent microaspiration also has been contemplated in the past. She has been evaluated by speech therapy multiple times in the past. Diet has been modified.
Primary team ordered video barium swallow--> unfortunately patient is not safe to be placed back onto trach collar at this time. Dobbhoff placed by primary team and will need to evaluate this daily; she may end up needing G-tube prior to discharge
if unable to be weaned back down to trach collar during the day
ENT consult placed to evaluate her tracheostomy given occasional reduction in TVe; unknown if the tracheostomy cuff is dysfunctional or she needs a different size. Dr. Powell evaluated her on 09/05 --> #6XLT placed on 09/05 ([facility]); please make sure
that extra tracheostomy is at bedside.
Anemia: Transfused on 09/01/2023 + 09/03/2023 (1 U PRBC each day)
trend Hb and transfuse as needed to keep >7g/dL
Follow renal function
I/Os, daily weights
DVT prophylaxis-on heparin
Early mobilization/bedside range of motion-baseline wheelchair-bound and ambulatory dysfunction
Continue her tube feeds via NG tube � if patient unable to be successfully weaned to trach collar over the weekend
GI following
May qualify for redo PEG, assuming that family agrees to this
IV access:
Left femoral triple-lumen catheter/CVC: Placed 08/31/2023 in ER --> removed on 09/06
RIJ TLC placed 09-06
The patient was last seen in the pulmonary office by Kalpana Mobley NP 06/01/2023 and has an appointment 09/07/2023 at 10:30 AM --> this will be re-scheduled.
Can eval for discharge planning once Trilogy issue resolved and new pneumonia effectively treated.
D/w RT and RN 09-08
Diagnostic Data:
CXR 04-27, reviewed, L basilar atelectasis
CXR 04-19, resolved total L atelectasis, currently back to chronic L basilar atelectasis. New tracheostomy
CXR 01-28, portable, L basilar atelectasis
CXR 04/11/22- 1. Complete opacification of the left hemithorax, likely on the basis of a large pleural effusion and compressive atelectasis upon the left lung. Mild right basilar pneumonia suspected
Chest x-ray 08/17/2023-near complete opacification throughout the left Jovanni thorax
Echocardiogram 01/10/22-EF 60-65%, no significant valvular disease, small pericardial effusion
Echocardiogram 03/22/22: Normal left ventricular chamber size. Normal left ventricular systolic�function. Normal regional wall motion. Normal left ventricular wall thickness.�Left ventricular ejection fraction is 60-65%. Mild tricuspid
regurgitation.�Small to moderate pericardial effusion without evidence of hemodynamic�compromise.�Compared to the previous echo Dec 2021, there is no significant change.
CT CHEST 04/11/22- �A moderate to large left pleural effusion and complete collapse/atelectasis of the left lung account for the left hemithorax opacification on the prior chest radiograph. Findings are in part likely secondary to mucous plugging
given the presence of opacification of the left mainstem bronchus and left upper and lower lobe bronchi, patchy opacifications right middle and lower lobe suspicious for pneumonia, moderate right pleural effusion and ill-defined sclerotic lesion
T12, osseous metastasis not completely excluded
CT CHEST 03/22/22 - There is no CT evidence for pulmonary embolism. No aortic dissection.There are extremely large bilateral pleural effusions right greater than left and associated bilateral consolidation most prominent in the left lower
lobe.Cardiomegaly. Increased pericardial effusion.
CT chest 08/17/2023-occluded left mainstem bronchus presumably mucous plugs with complete atelectasis left lung moderate size left pleural effusion, small to moderate right pleural effusion
VSE 04/28/22: No aspiration. Laryngeal penetration with cough with thin liquids by cup.
Spirometry 09/09/21-FEV1 790 mL-36%, FVC 790 mL 27%. Some difficulties with maneuver and thus may offer unreliability. Severe restriction.�������
PFT 02/08/22-FVC 1.01/30%, FEV1 0.70/35%, ratio 69%, unable to perform lung volumes and diffusing capacity.
Subjective Data
-
Date of Service:
Date of Service: September 10, 2023
Chief Complaint: Pulmonary Follow Up (Acute respiratory failure/mucous plugging.)
Subjective:
Continues on mechanical ventilation
Started on aggressive chest PT with vest, Mucomyst installations via tracheal tube and bronchodilators
Chest x-ray today shows persistent left-sided atelectasis
Remains significantly deconditioned
Review of Systems
General: Other (Open eyes, tries to follow simple commands, very deconditioned)
Objective Data
Data Reviewed
Vital Signs / I&O / Oxygen:
Vital Signs
Temp Pulse Resp BP Pulse Ox
98.9 F 102 30 155/64 96
09/10/23 07:10 09/10/23 07:17 09/10/23 07:17 09/10/23 02:00 09/10/23 07:17
Intake and Output
09/09/23 09/10/23 09/11/23
06:59 06:59 06:59
Intake Total 2189 / 2190
Balance 0 / 2190
SaO2 [A/C] 94
SaO2 96
Physical Exam
General: Respiratory Distress (n)
HEENT: Normocephalic, Anicteric and Tracheotomy
Cardiovascular: S1-S2 and Peripheral Edema (+1 lower extremity edema (L>R))
Respiratory: Wheeze (Negative), Crackles (Bilaterally), Rhonchi (Bilaterally (L >R)), Non-Labored Respirations and Other (Mechanical breath sounds heard bilaterally)
GI: Soft, Non Distended, Non Tender and Normal Bowel Sounds
Neurology: Lethargic
Skin: Warm and Dry
Labs/Micro/Reports
Lab Data
09/10/23 04:15
09/10/23 04:15
Laboratory Results
09/09/23
13:46
pH 7.33 L
pCO2 40 H
pO2 83
HCO3 21.1
O2 Delivery Level
Microbiology
09/07/23 06:00 Bronch Left Lower Lobe Acid Fast Bacilli Smear - Preliminary
09/07/23 06:00 Bronch Left Lower Lobe Acid Fast Bacilli Culture - Preliminary
09/05/23 09:11 Blood/Venous Blood Culture - Preliminary
No Growth in 4 days- Final report to follow
09/05/23 09:00 Blood/Venous Blood Culture - Preliminary
No Growth in 4 days- Final report to follow
09/06/23 15:39 Bronch Left Lower Lobe Respiratory Culture - Final
Serratia marcescens
Pseudomonas aeruginosa
09/06/23 15:39 Bronch Left Lower Lobe Gram Stain - Final
09/05/23 13:11 Tracheal Aspirate Respiratory Culture - Final
Serratia marcescens
Pseudomonas aeruginosa
09/05/23 13:11 Tracheal Aspirate Gram Stain - Final
08/31/23 14:39 Blood/Venous Blood Culture - Final
Lactobacillus casei
08/31/23 14:39 Blood/Venous Gram Stain - Final
[2023-09-10] MEDS: NORVASC 10 MG PO (08:19)
[2023-09-10] MEDS: FEOSOL 325 MG PO (08:19)
[2023-09-10] MEDS: VITAMIN B-12 1000 MCG PO (08:19)
[2023-09-10] MEDS: LOPRESSOR 50 MG PO ×2 (08:23→20:52)
[2023-09-10] MEDS: ASPIR LOW (ENTERIC COATED) 81 MG PO (08:23)
[2023-09-10] MEDS: HEPARIN 5000 UNITS SC ×3 (08:23→23:45)
[2023-09-10] MEDS: SODIUM BICARBONATE 650 MG PO ×3 (08:23→21:02)
[2023-09-10] MEDS: DESENEX/MITRAZOL/ZEASORB 1 APPLIC TOPICAL ×2 (08:24→20:54)
[2023-09-10] MEDS: ROBITUSSIN 200 MG TUBE ×4 (08:24→21:02)
[2023-09-10] MEDS: VITAMIN D3 (cholecalciferol) 25 MCG PO (08:24)
--- NOTE | 2023-09-10 09:24 | W.PN.ID1 ---
Date of Service
Date of Service: September 10, 2023
Today's Communication
Completed 5 days of cefepime - follow clinically, if relapse of fevers etc would start levofloxacin 750 mg per tube q48 hrs and recheck QTc in the AM
Monitor white count and temperature curve.
Assessment / Plan
Tracheitis vs Pneumonia
Chronic respiratory failure following COVID (2019); with Hx ECMO, current PM vent support
CKD
CAD
HTN
DM
Anemia
Recommendations:
CXR again with opacified L hemithorax today - likely plugging which is ongoing, getting chest pt etc
CXR 09/07: most likely atelectasis with retrocardiac opacity, less likely pneumonia. Bronch 09/05 most consistent with atelectasis
AFB and fungal cultures in progress
Completed 5 days of cefepime - follow clinically, if relapse of fevers etc would start levofloxacin 750 mg per tube q48 hrs and recheck QTc in the AM
Monitor white count and temperature curve.
Overall outlook remains guarded given multiple medical comorbidities.
Chief Complaint
-: Fever
Subjective / Review of Systems
tmax 100.0
bp stable
no leukocytosis
cr stable
CXR today: persistent opacification of L hemithorax
Vital Signs / Physical Exam
Vital Signs
Vital Signs
Temp Pulse Resp BP Pulse Ox
98.9 F 96 26 158/67 98
09/10/23 07:10 09/10/23 08:00 09/10/23 08:00 09/10/23 08:00 09/10/23 08:00
Physical Exam
Constitutional: No Acute Distress and Chronically Ill
Cardiovascular: Regular Rate and S1/S2; Negative Murmur or Rub
Pulmonary: Clear and Symmetric; Negative Wheezes or Rales
Gastrointestinal: Soft, Non Tender, Non Distended and Normal Bowel Sounds
Skin: Warm and Dry; Negative Rash or Jaundice
Objective Data
Lab Data
Lab Results
09/10/23 04:15
09/10/23 04:15
PT 13.4 Sec (11.4-14.6) 08/31/23 14:39
INR 1.02 08/31/23 14:39
APTT 37.5 Sec (23.4-35.0) H 08/31/23 14:39
Estimated Creat Clear 24 ml/min 09/10/23 04:15
Lactic Acid Cancelled 08/31/23 18:45
Total Bilirubin 0.5 mg/dl (0.2-1.3) 08/31/23 20:18
AST 14 U/L (14-36) 08/31/23 20:18
ALT < 10 U/L (0-35) 08/31/23 20:18
Alkaline Phosphatase 63 U/L (38-126) 08/31/23 20:18
Most recent labs reviewed.
Respiratory Culture Final 09/08/23-924
Many Serratia marcescens
Many Pseudomonas aeruginosa
Many Usual Respiratory Danica
Organism 1 Serratia marcescens
Organism 2 Pseudomonas aeruginosa
S.MARCES P.AERU
M.I.C. RX M.I.C. RX
--------- --- --------- ---
Amoxicillin/Potas. Clavulanate >16/8 R
Ampicillin >16 R
Ampicillin/Sulbactam >16/8 R
Cefazolin >16 R
Cefepime <=2 S <=2 S
Ceftazidime >16 R <=1 S
Ceftriaxone >2 R
Ertapenem <=0.5 S
Ciprofloxacin <=0.25 S <=0.25 S
Gentamicin <=4 S <=4 S
Levofloxacin <=0.5 S <=0.5 S
Meropenem <=1 S <=1 S
Piperacillin/Tazobactam >64 R <=16 S
Tobramycin 8 I <=4 S
Trimethoprim/Sulfamethoxazole <=2/38 S
Micro Results:
09/05/23 09:11 Blood Culture - Final
Blood/Venous No Growth - Final Report
09/05/23 09:00 Blood Culture - Final
Blood/Venous No Growth - Final Report
09/07/23 06:00 Acid Fast Bacilli Smear - Preliminary
Bronch Left Lower Lobe Acid Fast Bacilli Culture - Preliminary
09/06/23 15:39 Respiratory Culture - Final
Bronch Left Lower Lobe Serratia marcescens
Pseudomonas aeruginosa
Gram Stain - Final
09/05/23 13:11 Respiratory Culture - Final
Tracheal Aspirate Serratia marcescens
Pseudomonas aeruginosa
Gram Stain - Final
08/31/23 14:39 Blood Culture - Final
Blood/Venous Lactobacillus casei
Gram Stain - Final
09/06/23 15:39 Fungal Culture - Preliminary
Bronch Left Lower Lobe Culture in progress.
Positive cultures are reported as soon as detected.
Final report to follow in four to five weeks.
08/31/23 14:39 Blood Culture - Final
Blood/Venous No Growth - Final Report
09/01/23 03:39 MRSA Screen - Final
Nose No Methicillin Resistant Staphylococcus aureus isolated.
08/31/23 14:39 Urine Culture - Final
Urine No Significant Growth
Imaging:
09/05/2023 CXR (portable): The left hemidiaphragm is again obscured suggesting opacification such as atelectasis and/or pneumonia and small left pleural effusion. Overall widespread pulmonary interstitial markings are again slightly prominent. There
is no pneumothorax or significant right pleural effusion.
08/19/2023 Renal ultrasound: Severe bilateral renal disease (left > right), increased since 2021. 4.8 mm nonobstructing left intrarenal calculus noted. No evidence for hydronephrosis.
[2023-09-10] MEDS: STERILE WATER FOR INJECTION IV ×2 (09:51→21:31)
[2023-09-10] MEDS: LEVOFLOXACIN 750 MG TUBE (09:59)
[2023-09-10 12:06] LABS: Magnesium 1.6 mg/dl (1.6-2.3)
[2023-09-10 12:29] LABS: Glucose - Point of Care 158 mg/dl (70-99)
[2023-09-10] MEDS: LIPITOR 20 MG PO (17:43)
[2023-09-10 17:49] LABS: Glucose - Point of Care 198 mg/dl (70-99)
[2023-09-10] MEDS: TYLENOL 1000 MG PO (21:02)
[2023-09-10] MEDS: CARDURA 1 MG PO (21:02)
[2023-09-10 23:36] LABS: Glucose - Point of Care 167 mg/dl (70-99)
[2023-09-10] MEDS: LANTUS SC (23:41)
[2023-09-10] MEDS: LANTUS 0.04 UNITS SC (23:58)
[2023-09-11] VITALS (32 sets, daily range): BP systolic 16–174; BP diastolic 54–160
[2023-09-11] MEDS: MUCOMYST 10% 4 ML INH ×4 (01:58→19:25)
[2023-09-11] MEDS: VENTOLIN NEBULES 2.5 MG INH ×5 (01:58→19:25)
[2023-09-11 05:25] LABS: Hematocrit 28.9 % (37.0-47.0); Hemoglobin 8.9 g/dL (12.0-16.0); Mean Corp Hgb Conc. 30.8 g/dL (33.0-37.0); Mean Corpuscular Hgb 28.3 pg (27.0-31.0); Mean Corpuscular Volume 91.7 fL (81.0-99.0); Mean Platelet Volume 11.5 fL (7.4-10.4); Platelet Count 221 10^3/uL (130-400); Red Blood Cell Count 3.15 10^6/uL (4.20-5.40); Red Cell Dist. Width 15.4 % (11.5-14.5); White Blood Cell Count 9.2 10^3/uL (4.8-10.8)
[2023-09-11 05:46] LABS: Blood Urea Nitrogen 38 mg/dl (7-17); Calcium 8.4 mg/dl (8.4-10.2); Carbon Dioxide 24 mmol/L (22-30); Chloride 109 mmol/L (98-107); Estimated Creatinine Clearance 24 ml/min; Glucose 117 mg/dl (70-99); Magnesium 1.5 mg/dl (1.6-2.3); Phosphorus 3.6 mg/dl (2.5-4.5); Potassium 5.5 mmol/L (3.5-5.1); Sodium 137 mmol/L (135-145); eGFR 25.83
[2023-09-11 05:55] LABS: NT-proBNP 19000 pg/ml
[2023-09-11 06:02] LABS: Glucose - Point of Care 124 mg/dl (70-99)
[2023-09-11] MEDS: NOVOLOG FLEXPEN-LOW RESISTANCE SC ×2 (06:10→13:43)
--- NOTE | 2023-09-11 06:24 | PTCARENOTE ---
Patient more awake, unable to follow commands, with infrequent arm and leg movements. Suctioned multiple times for scant secretions.
--- NOTE | 2023-09-11 07:45 | PTCARENOTE ---
Patient recieved from lieutenant shift supervisor. Patient resting comfortably in bed. No events noted overnight. No visible signs of pain or discomfort, no attempted verbal (mouthed words) either. Currently on the ventilator A/C 16 450 +5 40%, 6 XL Shiley.
Patient currently NPO for possible Bronch, confirmed with Pulmonary this AM. Call giles in reach.
[2023-09-11] MEDS: HEPARIN 5000 UNITS SC ×3 (09:40→23:13)
--- NOTE | 2023-09-11 09:53 | W.PN.PUL3 ---
Today's Communication / Plan
-
Continue secretion clearance interventions
Nutritional support-suspect patient will need PEG tube prior to discharge .
Continue mechanical ventilation-patient unable to wean
Bronchoscopy today for secretion clearance/left lobar atelectasis
Assessment
-
Mrs Shruti Rockwell is a 62 year old F with history of chronic hypoxic/hypercarbic resp failure s/p trach, post COVID illness, who p/w CC shortness of breath. The patient was recently discharged from 08/25/23 for mucus plugging. Family states that on
day of admission, the patient had decreased responsiveness. She is placed on Trilogy at night/trach collar through the day. She has been sleeping more and less conversive. They have noticed her exhaled TV on Trilogy reporting on avg <200cc
nightly. Her baseline settings are TV 350/PS8/40%/5+. Per medics, the patient was initially on 15 L but desaturated to the 80s. She had to be bagged and her saturations did improve. She is placed on vent in ER and saturations are now improved.
CXR appears similar to prior. We are consulted for eval 09/01/23.
Impression:
Hypoxemic and hypercapnic respiratory failure due to recurrent mucous plug/left lung atelectasis
ABG 08/17/2023--52/59/7 0.24
Ventilator dependent respiratory failure
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
Status post emergent bronchoscopy at the bedside 08/18/2023-mucous plugs removed from the left
Pneumonia - SCx from 09/04 and BAL from 09/05 growing Serratia marcescens + Pseudomonas aeruginosa
Left pleural effusion
CHINTAN (Cr baseline 2.1)
Anemia-normocytic
Hypocalcemia
Hypernatremia
Metabolic and respiratory acidosis
Conditions present prior to admission:
Chronic hypercapnic/hypoxemic respiratory failure/chronic tracheostomy/nocturnal ventilation.
Severe Covid/ECMO 2019.
Diabetes.
Hypertension.
CAD/angioplasty 2020.
Recurrent UTI.
Ambulatory dysfunction/wheelchair-bound.
Chronic anemia.
Overweight.
Renal calculi.
Laparoscopic cholecystectomy 07/2020. Bilateral ureteroscopy with lithotripsy of the right renal stone and clearing of left renal pelvic fungal ball. Laminectomy. .
Plan
No overnight events.
Remains on mechanical ventilation and unable to wean on trach collar.
Oxygen requirements baseline.
Discussed with respiratory therapist 09/11/2023-unable to wean on trach collar due to apneic events increased work of breathing.
Chronic respiratory failure:
Data from trilogy 08/16/23 showing usage 9.3 avg hours - MV 5.7 L/min - RR 23 - IPAP/EPAP 12.6/4.9 cm water - Avg VTe 249.1 - leak 32.5 L/min
Settings: Mode S, IPAP 13 EPAP 5
noted decreased tidal volume on admission.
Patient should have been on the settings TV 350/PS 8/40%/PEEP 5 per last office note-this will be adjusted upon discharge from the hospital if patient goes back on Trilogy.
Will need to discuss with her [employer] to adjust ventilator settings. Prior to discharge. --> brought in patient's Trilogy machine can be adjusted at that time if patient is discharged home.
-
Unfortunately has not able to wean on trach collar. Now also with tube feedings via Dobbhoff tube.
Continue mechanical ventilation
On ACV at 16-450-5-0.4. Pk pr 36, plt pr 27
Aspiration precautions
Routine tracheostomy tube care continues
-
Continue secretion clearance interventions: Persistent left white out despite maximal interventions.
CXR on AM of 09/05 shows persistent L-atelectasis.
Dr Epstein performed bronchoscopy on 09/05 for pulmonary toilet purposes and BAL of LLL --> Cx grew Serratia marcescens + Pseudomonas aeruginosa � follow-up sensitivities
During bronch, there was a mucosal abnormality at her LLL at the secondary fran, which appeared white/shiny --> concern for dysplasia but cytology negative for malignancy.
Maximal secretion clearance interventions ongoing:
Sport bed
Continue VEST/mucomyst trach instillations and alb nebs q6h
DNs changed to alb nebs as above and prn
CXR 09-08 with recurrent L atelectasis
Follow up CXR 09-09 still with no change in L atelectasis
Chest x-ray 09/11/2023: Reviewed, showed improved aeration on the left but persistent left sided atelectasis.
Discussed with daughter by Dr. Treviño 09/11/2023: Will repeat bronchoscopy for pulmonary toileting. Indication lobar atelectasis on the left.
Consent has been obtained already.
Tracheostomy has been exchanged:
Dr. Powell evaluated her on 09/05 --> #[id number] placed on 09/05 ([facility]cy); please make sure that extra tracheostomy is at bedside.
Pneumonia:
Discontinued antibiotics on 2023: Afebrile. Cultures negative. Fever again on AM of 09/04 --> ABx restarted with cefepime; trach secs culture 09-04 + BAL 09-05 both growing Serratia marcescens + Pseudomonas aeruginosa.
Positive blood culture 08-30 suspect contaminant (Lactob casei)
ID has evaluated the patient, (completed 5 d cefepime 09-08)
Continue to monitor off antibiotics.
Swallowing dysfunction:
Recurrent microaspiration also has been contemplated in the past. She has been evaluated by speech therapy multiple times in the past. Diet has been modified.
Primary team ordered video barium swallow--> unfortunately patient is not safe to be placed back onto trach collar at this time.
Dobbhoff placed by primary team - she may end up needing G-tube prior to discharge if unable to be weaned back down to trach collar during the day.
Tube feeds � if patient unable to be successfully weaned to trach collar over the weekend
Suspect will require PEG tube placement prior to discharge.
-
DVT prophylaxis-on heparin
Early mobilization/bedside range of motion-baseline wheelchair-bound and ambulatory dysfunction
Continue
Suspect this patient unlikely will be able to return home. Has not been able to wean on trach collar. Very debilitated.
Continue support as above
Likely will need PEG tube placement prior to discharge.
--------
The patient was last seen in the pulmonary office by Kalpana Mobley NP 06/01/2023 and has an appointment 09/07/2023 at 10:30 AM --> this will be re-scheduled.
Can eval for discharge planning once Trilogy issue resolved and new pneumonia effectively treated.
D/w RT and RN 09-08

Diagnostic Data:
CXR 04-27, reviewed, L basilar atelectasis
CXR 04-19, resolved total L atelectasis, currently back to chronic L basilar atelectasis. New tracheostomy
CXR 04-16, portable, L basilar atelectasis
CXR 04/11/22- 1. Complete opacification of the left hemithorax, likely on the basis of a large pleural effusion and compressive atelectasis upon the left lung. Mild right basilar pneumonia suspected
Chest x-ray 08/17/2023-near complete opacification throughout the left Jovanni thorax
Echocardiogram 01/10/22-EF 60-65%, no significant valvular disease, small pericardial effusion
Echocardiogram 03/22/22: Normal left ventricular chamber size. Normal left ventricular systolic�function. Normal regional wall motion. Normal left ventricular wall thickness.�Left ventricular ejection fraction is 60-65%. Mild tricuspid
regurgitation.�Small to moderate pericardial effusion without evidence of hemodynamic�compromise.�Compared to the previous echo Dec 2021, there is no significant change.
CT CHEST 04/11/22- �A moderate to large left pleural effusion and complete collapse/atelectasis of the left lung account for the left hemithorax opacification on the prior chest radiograph. Findings are in part likely secondary to mucous plugging
given the presence of opacification of the left mainstem bronchus and left upper and lower lobe bronchi, patchy opacifications right middle and lower lobe suspicious for pneumonia, moderate right pleural effusion and ill-defined sclerotic lesion
T12, osseous metastasis not completely excluded
CT CHEST 03/22/22 - There is no CT evidence for pulmonary embolism. No aortic dissection.There are extremely large bilateral pleural effusions right greater than left and associated bilateral consolidation most prominent in the left lower
lobe.Cardiomegaly. Increased pericardial effusion.
CT chest 08/17/2023-occluded left mainstem bronchus presumably mucous plugs with complete atelectasis left lung moderate size left pleural effusion, small to moderate right pleural effusion
VSE 04/28/22: No aspiration. Laryngeal penetration with cough with thin liquids by cup.
Spirometry 09/09/21-FEV1 790 mL-36%, FVC 790 mL 27%. Some difficulties with maneuver and thus may offer unreliability. Severe restriction.�������
PFT 02/08/22-FVC 1.01/30%, FEV1 0.70/35%, ratio 69%, unable to perform lung volumes and diffusing capacity.
Subjective Data
-
Date of Service:
Date of Service: September 11, 2023
Chief Complaint: Pulmonary Follow Up (Acute respiratory failure/mucous plugging.)
Subjective:
Remain on mechanical ventilation overnight
No worsening hypoxemia
Has not been able to wean
Unable to provide history-ventilator status
Objective Data
Data Reviewed
Vital Signs / I&O / Oxygen:
Vital Signs
Temp Pulse Resp BP Pulse Ox
98.4 F 97 22 157/70 95
09/11/23 03:03 09/11/23 08:10 09/11/23 08:10 09/11/23 06:00 09/11/23 08:10
SaO2 [A/C] 95
SaO2 95
Physical Exam
General: Respiratory Distress (n)
HEENT: Normocephalic, Anicteric and Tracheotomy
Cardiovascular: S1-S2 and Peripheral Edema (+1 lower extremity edema (L>R))
Respiratory: Wheeze (Negative), Crackles (Bilaterally), Rhonchi (Bilaterally (L >R)), Non-Labored Respirations and Other (Mechanical breath sounds heard bilaterally)
GI: Soft, Non Distended, Non Tender and Normal Bowel Sounds
Neurology: Lethargic
Skin: Warm and Dry
Labs/Micro/Reports
Lab Data
09/11/23 04:57
09/11/23 04:57
Microbiology
09/05/23 09:11 Blood/Venous Blood Culture - Final
No Growth - Final Report
09/05/23 09:00 Blood/Venous Blood Culture - Final
No Growth - Final Report
09/07/23 06:00 Bronch Left Lower Lobe Acid Fast Bacilli Smear - Preliminary
09/07/23 06:00 Bronch Left Lower Lobe Acid Fast Bacilli Culture - Preliminary
09/06/23 15:39 Bronch Left Lower Lobe Respiratory Culture - Final
Serratia marcescens
Pseudomonas aeruginosa
09/06/23 15:39 Bronch Left Lower Lobe Gram Stain - Final
09/05/23 13:11 Tracheal Aspirate Respiratory Culture - Final
Serratia marcescens
Pseudomonas aeruginosa
09/05/23 13:11 Tracheal Aspirate Gram Stain - Final
--- NOTE | 2023-09-11 11:08 | W.PN.HOSP.TC ---
Today's Communication/Plan
-
see bold
Assessment / Plan
Assessment / Plan
62-year-old female with chronic tracheostomy uses ventilator at night and trach collar during the day. She was admitted recently and was discharged on 08/25/2023 but she was admitted with acute on chronic hypoxic hypercapnic respiratory failure with
opacification of the left hemithorax. Patient underwent bronchoscopy on 08/18/2023 mucous plugs removed from the left. BAL grew Proteus and completed 7-day course of Unasyn per ID. She also had CHINTAN with CKD stage IV FLAVIO inhibitor was held.
Ultrasound of the kidney showed bilateral renal disease. She comes back with decreased responsiveness.
Gen: NAD, Awake but not alert, appears chronically ill
Eyes: no scleral icterus.
Neck: supple.
CV: RRR, +S1/S2, no m/r/g.
Resp: decreased BS L chest, no rales, wheezes, or rhonchi.
Abd: +BS, soft, NT, ND
Skin: No rashes.
Neuro: minimally responsive, non-focal.
Psych: calm
09/05/23 09:11 Blood/Venous Blood Culture - Final
No Growth - Final Report
09/05/23 09:00 Blood/Venous Blood Culture - Final
No Growth - Final Report
09/07/23 06:00 Bronch Left Lower Lobe Acid Fast Bacilli Smear - Preliminary
09/07/23 06:00 Bronch Left Lower Lobe Acid Fast Bacilli Culture - Preliminary
09/06/23 15:39 Bronch Left Lower Lobe Respiratory Culture - Final
Serratia marcescens
Pseudomonas aeruginosa
09/06/23 15:39 Bronch Left Lower Lobe Gram Stain - Final
09/05/23 13:11 Tracheal Aspirate Respiratory Culture - Final
Serratia marcescens
Pseudomonas aeruginosa
09/05/23 13:11 Tracheal Aspirate Gram Stain - Final
08/31/23 14:39 Blood/Venous Blood Culture - Final
Lactobacillus casei
08/31/23 14:39 Blood/Venous Gram Stain - Final
09/06/23 15:39 Bronch Left Lower Lobe Fungal Culture - Preliminary
Culture in progress.
Positive cultures are reported as soon as detected.
Final report to follow in four to five weeks.
08/31/23 14:39 Blood/Venous Blood Culture - Final
No Growth - Final Report
09/01/23 03:39 Nose MRSA Screen - Final
No Methicillin Resistant Staphylococcus aureus isolated.
08/31/23 14:39 Urine Urine Culture - Final
No Significant Growth
Echo 08/18/23: EF 60 to 65%. Mild concentric LVH. Normal diastolic function. Normal RV size and function. Mild TR. Pulmonary pressure 30 cm of mercury. Small pericardial effusion without hemodynamic compromise
Acute on chronic hypercapnic/hypoxemic respiratory failure:
-With acute respiratory acidosis
-AUTHORIZATION REP the patient's TV has decreased to an average of less than 200cc nightly (will be rectified with [employer]).
-continues on ATC ACMV
-Wean as tolerated during day time
-VSE when patient can be on a trach collar
-s/p bronchoscopy 09/06/23
-ENT saw in consult and placed #6 Romero (Sergei) on 09/06/2023 as there was concern for air leak
-Respiratory cultures with pseudomonas and Serratia
Treat as Aspiration pneumonia
PT of the chest with cofflator
ID eval appreciated completed 5 days cefipime, patient to start renally dosed Levofloxacin if relapses/develops fever
-Repeat Bronchoscopy today for recurrent mucous plugging
Acute metabolic encephalopathy on admission (and intermittent since):
-EEG, CT of the head all negative
-likely due to inadequate TV at home causing acute on chronic hypercapnic and hypoxemic respiratory failure with acute respiratory acidosis (on 30/07 at home as per family)
Other problems:
Anemia of chronic disease and Fe deficiency: Hb stable s/p 2U pRBCs
One set of BCx with lactobacillus Casei: Likely contaminant
Femoral line removed and Right IJ placed 09/07/23
Hypokalemia and hyperkalemia
Hypomagnesemia
Hypocalcemia
Positive LILIAN Screen: OP Rheum Eval
CKD4, Cr at baseline. Sodium bicarb
DM2: cont SSI/accuchecks/Lantus
h/o small to moderate pericardial effusion
Essential hypertension: cont Norvasc/doxazosin.
Hyperlipidemia: Continue statin
Coronary artery disease status post angioplasty: cont ASA/BB
h/o C. diff
COVID pneumonia 2019 with ECMO and ventilator and 3-month hospital stay at [place]
Ambulatory dysfunction, wheelchair-bound since June 2019
Spinal stenosis
Overweight per BMI criteria
Hypoalbuminemia
Nutrition- Dobbhoff tube feeds replaced by GI. Patient may require PEG, discussed with patient's family
FULL/Heparin
Extremely poor prognosis. Patient is hospice appropriate. I did explain to the patient's daughter that she will likely need LTAC on discharge (I did not mention hospice).
Total time spent on today's encounter was 50 minutes which included time spent in counseling the patient/family regarding diagnosis and treatment plan as listed above, goals of care, and symptom management. Case was discussed with nursing staff,
specialists, and care coordinators/case management. All labs and imaging personally reviewed by me. Remainder the time spent in detailed review of previous records, lab data, imaging, and other medical provider documentation.
Anticipated Discharge: > 48 hours
Subjective/Interval History
-
Date of Service: September 11, 2023
Patient with eyes open but not very responsive.
Objective Data
-
Labs:
Laboratory Results
09/11/23
04:57
WBC 9.2
Hgb 8.9 L
Hct 28.9 L
Plt Count 221 D
Sodium 137
Potassium 5.5 H
Chloride 109 H
Carbon Dioxide 24
BUN 38 H
Creatinine 2.1 H
Glucose 117 H
Calcium 8.4
Vital Signs:
Vital Signs
Temp Pulse Resp BP Pulse Ox
98.8 F 97 22 157/70 95
09/11/23 07:45 09/11/23 08:10 09/11/23 08:10 09/11/23 06:00 09/11/23 08:10
[2023-09-11] MEDS: SUBLIMAZE 50 MCG IV (11:32)
[2023-09-11] MEDS: VERSED 2 MG IV (11:32)
--- NOTE | 2023-09-11 11:32 | W.PN.ID1 ---
Date of Service
Date of Service: September 11, 2023
Today's Communication
Completed 5 days of cefepime - follow clinically, if relapse of fevers etc would start levofloxacin 750 mg per tube q48 hrs and recheck QTc in the AM
Assessment / Plan
Tracheitis vs Pneumonia
Chronic respiratory failure following COVID (2019); with Hx ECMO, current PM vent support
CKD
CAD
HTN
DM
Anemia
Recommendations:
CXR again with opacified L hemithorax today - likely plugging which is ongoing, getting chest pt etc
CXR 09/07: most likely atelectasis with retrocardiac opacity, less likely pneumonia. Bronch 09/05 most consistent with atelectasis
AFB and fungal cultures in progress
Completed 5 days of cefepime - follow clinically, if relapse of fevers etc would start levofloxacin 750 mg per tube q48 hrs and recheck QTc in the AM
Monitor white count and temperature curve.
Overall outlook remains guarded given multiple medical comorbidities.
Chief Complaint
-: Fever
Subjective / Review of Systems
afebrile
bp stable
without leukocytosis
cr stable
Vital Signs / Physical Exam
Vital Signs
Vital Signs
Temp Pulse Resp BP Pulse Ox
98.8 F 97 20 157/70 96
09/11/23 07:45 09/11/23 11:20 09/11/23 11:20 09/11/23 06:00 09/11/23 11:20
Physical Exam
Constitutional: No Acute Distress and Chronically Ill
Cardiovascular: Regular Rate and S1/S2; Negative Murmur or Rub
Pulmonary: Clear and Symmetric; Negative Wheezes or Rales
Gastrointestinal: Soft, Non Tender, Non Distended and Normal Bowel Sounds
Skin: Warm and Dry; Negative Rash or Jaundice
Objective Data
Lab Data
Lab Results
09/11/23 04:57
09/11/23 04:57
PT 13.4 Sec (11.4-14.6) 08/31/23 14:39
INR 1.02 08/31/23 14:39
APTT 37.5 Sec (23.4-35.0) H 08/31/23 14:39
Estimated Creat Clear 24 ml/min 09/11/23 04:57
Lactic Acid Cancelled 08/31/23 18:45
Total Bilirubin 0.5 mg/dl (0.2-1.3) 08/31/23 20:18
AST 14 U/L (14-36) 08/31/23 20:18
ALT < 10 U/L (0-35) 08/31/23 20:18
Alkaline Phosphatase 63 U/L (38-126) 08/31/23 20:18
Most recent labs reviewed.
Micro Results:
09/05/23 09:11 Blood Culture - Final
Blood/Venous No Growth - Final Report
09/05/23 09:00 Blood Culture - Final
Blood/Venous No Growth - Final Report
09/07/23 06:00 Acid Fast Bacilli Smear - Preliminary
Bronch Left Lower Lobe Acid Fast Bacilli Culture - Preliminary
09/06/23 15:39 Respiratory Culture - Final
Bronch Left Lower Lobe Serratia marcescens
Pseudomonas aeruginosa
Gram Stain - Final
09/05/23 13:11 Respiratory Culture - Final
Tracheal Aspirate Serratia marcescens
Pseudomonas aeruginosa
Gram Stain - Final
08/31/23 14:39 Blood Culture - Final
Blood/Venous Lactobacillus casei
Gram Stain - Final
09/06/23 15:39 Fungal Culture - Preliminary
Bronch Left Lower Lobe Culture in progress.
Positive cultures are reported as soon as detected.
Final report to follow in four to five weeks.
08/31/23 14:39 Blood Culture - Final
Blood/Venous No Growth - Final Report
09/01/23 03:39 MRSA Screen - Final
Nose No Methicillin Resistant Staphylococcus aureus isolated.
08/31/23 14:39 Urine Culture - Final
Urine No Significant Growth
Imaging:
09/05/2023 CXR (portable): The left hemidiaphragm is again obscured suggesting opacification such as atelectasis and/or pneumonia and small left pleural effusion. Overall widespread pulmonary interstitial markings are again slightly prominent. There
is no pneumothorax or significant right pleural effusion.
08/19/2023 Renal ultrasound: Severe bilateral renal disease (left > right), increased since 2021. 4.8 mm nonobstructing left intrarenal calculus noted. No evidence for hydronephrosis.
--- NOTE | 2023-09-11 11:40 | PTCARENOTE ---
Bronchoscopy done at bedside. Patient tolerated well. ICU nurse with patient to administer medications, see MAR.
--- NOTE | 2023-09-11 11:49 | W.PN.UPDATE ---
Update Note
Progress Note Update
Procedure note: Bedside bronchoscopy
Indication: Left lung whiteout on x-ray. Possible atelectasis
Consent obtained in the chart.
Patient was provided with 2 mg of Versed and 50 mg of fentanyl prior to procedure.
Portable bronchoscope was advanced through the tracheotomy tube without resistance. Tracheotomy tube in adequate position.
Radha was sharp without secretions.
Bronchoscope was advanced to the left mainstem bronchus: No significant secretions were seen. Rest of the trachea lung entry evaluated, no significant secretions or endobronchial masses were noted. Leukoplakia previously biopsied noted.
Bronchoscope was advanced also to the right tracheobronchial tree: No secretions or endobronchial masses were noted.
Patient tolerated the procedure well.
Pulse ox briefly decreased to 65% for less than a few seconds with rapid recovery after withdrawal of bronchoscope.
Hemodynamically stable throughout
No samples were taken.
[2023-09-11] MEDS: ASPIR LOW (ENTERIC COATED) 81 MG PO (12:39)
[2023-09-11] MEDS: DESENEX/MITRAZOL/ZEASORB 1 APPLIC TOPICAL ×2 (12:39→19:23)
[2023-09-11] MEDS: SODIUM BICARBONATE PO (12:40)
[2023-09-11] MEDS: NORVASC 10 MG PO (12:40)
[2023-09-11] MEDS: VITAMIN B-12 1000 MCG PO (12:40)
[2023-09-11] MEDS: FEOSOL 325 MG PO (12:41)
[2023-09-11] MEDS: LOPRESSOR 50 MG PO ×2 (12:41→19:23)
[2023-09-11] MEDS: ROBITUSSIN TUBE (12:41)
[2023-09-11] MEDS: VITAMIN D3 (cholecalciferol) 25 MCG PO (12:41)
[2023-09-11] MEDS: ROBITUSSIN 200 MG TUBE ×3 (12:41→21:28)
[2023-09-11] MEDS: STERILE WATER FOR INJECTION IV (12:42)
[2023-09-11 13:32] LABS: Glucose - Point of Care 118 mg/dl (70-99)
[2023-09-11] MEDS: SODIUM BICARBONATE 650 MG PO ×2 (18:08→21:28)
[2023-09-11] MEDS: LIPITOR 20 MG PO (18:08)
[2023-09-11] MEDS: NOVOLOG FLEXPEN-LOW RESISTANCE 2 UNITS SC ×2 (18:38→23:14)
[2023-09-11 18:51] LABS: Glucose - Point of Care 203 mg/dl (70-99)
[2023-09-11] MEDS: CARDURA 1 MG PO (21:28)
[2023-09-11] MEDS: LANTUS 0.12 UNITS SC (23:08)
[2023-09-11 23:19] LABS: Glucose - Point of Care 247 mg/dl (70-99)
[2023-09-11 23:49] LABS: Glucose - Point of Care 240 mg/dl (70-99)
[2023-09-12] VITALS (25 sets, daily range): BP systolic 121–167; BP diastolic 60–91
[2023-09-12] MEDS: MUCOMYST 10% 4 ML INH ×4 (02:36→19:25)
[2023-09-12] MEDS: VENTOLIN NEBULES 2.5 MG INH ×5 (02:36→19:26)
--- NOTE | 2023-09-12 03:34 | PTCARENOTE ---
Pt resting comfortably in bed, Q2T schedule in place. Pt able to mouth 'thank you', answer yes/no questions and follow simple commands while awake. Suction provided as needed. Hygiene care provided. Pt sometimes sleeps through care. Maintains SR on
monitor. BPs high in 150s-160s systolic. Scheduled cardiac medications given per MAY.
[2023-09-12 05:25] LABS: Hematocrit 27.2 % (37.0-47.0); Hemoglobin 8.1 g/dL (12.0-16.0); Mean Corp Hgb Conc. 29.8 g/dL (33.0-37.0); Mean Corpuscular Hgb 27.9 pg (27.0-31.0); Mean Corpuscular Volume 93.8 fL (81.0-99.0); Mean Platelet Volume 11.8 fL (7.4-10.4); Platelet Count 217 10^3/uL (130-400); Red Cell Dist. Width 15.2 % (11.5-14.5); White Blood Cell Count 9.1 10^3/uL (4.8-10.8)
[2023-09-12 05:53] LABS: Blood Urea Nitrogen 40 mg/dl (7-17); Calcium 8.3 mg/dl (8.4-10.2); Carbon Dioxide 24 mmol/L (22-30); Chloride 108 mmol/L (98-107); Estimated Creatinine Clearance 26 ml/min; Glucose 200 mg/dl (70-99); Magnesium 1.5 mg/dl (1.6-2.3); Phosphorus 3.8 mg/dl (2.5-4.5); Potassium 6.1 mmol/L (3.5-5.1); Sodium 137 mmol/L (135-145); eGFR 27.38
[2023-09-12] MEDS: VENTOLIN NEBULES 10 MG INH (06:00)
[2023-09-12] MEDS: DEXTROSE 50% SYRINGE 25 GRAMS IV ×3 (06:30→23:05)
[2023-09-12] MEDS: NOVOLIN R 0.1 UNITS IV ×3 (06:35→23:06)
[2023-09-12 06:39] LABS: Glucose - Point of Care 211 mg/dl (70-99)
[2023-09-12 07:45] LABS: Glucose - Point of Care 241 mg/dl (70-99)
[2023-09-12] MEDS: VITAMIN D3 (cholecalciferol) 25 MCG PO (07:50)
[2023-09-12] MEDS: SODIUM BICARBONATE 650 MG PO ×3 (07:50→22:01)
[2023-09-12] MEDS: LOPRESSOR 50 MG PO ×2 (07:50→19:47)
[2023-09-12] MEDS: NORVASC 10 MG PO (07:50)
[2023-09-12] MEDS: FEOSOL 325 MG PO (07:50)
[2023-09-12] MEDS: ASPIR LOW (ENTERIC COATED) 81 MG PO (07:50)
[2023-09-12] MEDS: NOVOLOG FLEXPEN-LOW RESISTANCE 2 UNITS SC ×2 (07:50→13:10)
[2023-09-12] MEDS: ROBITUSSIN 200 MG TUBE ×4 (07:51→22:01)
[2023-09-12] MEDS: VITAMIN B-12 1000 MCG PO (07:51)
[2023-09-12] MEDS: HEPARIN 5000 UNITS SC ×3 (07:51→23:05)
[2023-09-12] MEDS: DESENEX/MITRAZOL/ZEASORB 1 APPLIC TOPICAL ×2 (07:51→19:46)
--- NOTE | 2023-09-12 08:42 | W.PN.HOSP.TC ---
Today's Communication/Plan
-
see bold
Assessment / Plan
Assessment / Plan
62-year-old female with chronic tracheostomy uses ventilator at night and trach collar during the day. She was admitted recently and was discharged on 08/25/2023 but she was admitted with acute on chronic hypoxic hypercapnic respiratory failure with
opacification of the left hemithorax. Patient underwent bronchoscopy on 08/18/2023 mucous plugs removed from the left. BAL grew Proteus and completed 7-day course of Unasyn per ID. She also had CHINTAN with CKD stage IV FLAVIO inhibitor was held.
Ultrasound of the kidney showed bilateral renal disease. She comes back with decreased responsiveness.
Gen: NAD, Awake and alert, appears chronically ill
Eyes: no scleral icterus.
Neck: supple.
CV: RRR, +S1/S2, no m/r/g.
Resp: CTAB anteriorly, no rales, wheezes, or rhonchi.
Abd: +BS, soft, NT, ND
Skin: No rashes.
Neuro: CN2-12 intact, non-focal.
Psych: calm
09/06/23 15:39 Bronch Left Lower Lobe Fungal Culture - Preliminary
Culture in progress.
Positive cultures are reported as soon as detected.
Final report to follow in four to five weeks.
09/05/23 09:11 Blood/Venous Blood Culture - Final
No Growth - Final Report
09/05/23 09:00 Blood/Venous Blood Culture - Final
No Growth - Final Report
09/07/23 06:00 Bronch Left Lower Lobe Acid Fast Bacilli Smear - Preliminary
09/07/23 06:00 Bronch Left Lower Lobe Acid Fast Bacilli Culture - Preliminary
09/06/23 15:39 Bronch Left Lower Lobe Respiratory Culture - Final
Serratia marcescens
Pseudomonas aeruginosa
09/06/23 15:39 Bronch Left Lower Lobe Gram Stain - Final
09/05/23 13:11 Tracheal Aspirate Respiratory Culture - Final
Serratia marcescens
Pseudomonas aeruginosa
09/05/23 13:11 Tracheal Aspirate Gram Stain - Final
08/31/23 14:39 Blood/Venous Blood Culture - Final
Lactobacillus casei
08/31/23 14:39 Blood/Venous Gram Stain - Final
08/31/23 14:39 Blood/Venous Blood Culture - Final
No Growth - Final Report
09/01/23 03:39 Nose MRSA Screen - Final
No Methicillin Resistant Staphylococcus aureus isolated.
08/31/23 14:39 Urine Urine Culture - Final
No Significant Growth
Echo 08/18/23: EF 60 to 65%. Mild concentric LVH. Normal diastolic function. Normal RV size and function. Mild TR. Pulmonary pressure 30 cm of mercury. Small pericardial effusion without hemodynamic compromise
Acute on chronic hypercapnic/hypoxemic respiratory failure:
-With acute respiratory acidosis
-[employer] the patient's TV has decreased to an average of less than 200cc nightly (will be rectified with [employer]).
-continues on ATC ACMV
-Wean as tolerated during day time
-VSE when patient can be on a trach collar
-s/p bronchoscopy 09/06/23
-ENT saw in consult and placed #6 Romero (Sergei) on 09/06/2023 as there was concern for air leak
-Respiratory cultures with pseudomonas and Serratia (treated as aspiration PNA)
-chest PT
-appreciate ID, pt completed 5 days cefepime. Patient to start renally dosed Levofloxacin if relapses/develops fever.
-Repeat Bronchoscopy 09/11/23 was unremarkable (no secretions, masses, or mucous plugging)
Acute metabolic encephalopathy on admission (and intermittent since):
-EEG, CT of the head all negative
-likely due to inadequate TV at home causing acute on chronic hypercapnic and hypoxemic respiratory failure with acute respiratory acidosis (on 30/07 at home as per family)
Other problems:
Anemia of chronic disease and Fe deficiency: Hb relatively stable s/p 2U pRBCs (note Hb drop from 8.9 to 8.1)
One set of BCx with lactobacillus Casei: Likely contaminant
Femoral line removed and Right IJ placed 09/07/23
Hypokalemia and hyperkalemia: 45g Kayexalate x 1 now, recheck K at 1600
Hypomagnesemia: 2g IV Mg
Hypocalcemia
Positive LILIAN Screen: OP Rheum Eval
CKD4, Cr at baseline. Sodium bicarb
DM2: cont SSI/accuchecks/Lantus
h/o small to moderate pericardial effusion
Essential hypertension: cont Norvasc/doxazosin.
Hyperlipidemia: Continue statin
Coronary artery disease status post angioplasty: cont ASA/BB
h/o C. diff
COVID pneumonia 2019 with ECMO and ventilator and 3-month hospital stay at [facility]
Ambulatory dysfunction, wheelchair-bound since June 2019
Spinal stenosis
Overweight per BMI criteria
Hypoalbuminemia
Nutrition: currently with Dobbhoff tube. Will c/s GI for PEG.
FULL/Heparin
Extremely poor prognosis. Patient is hospice appropriate. I did explain to the patient's daughter, on 09/11/23, that she will likely need LTAC on discharge (I did not mention hospice).
Attempted to reach the pt's daughter over the phone.
Total time spent on today's encounter was 51 minutes which included time spent in counseling the patient/family regarding diagnosis and treatment plan as listed above, goals of care, and symptom management. Case was discussed with nursing staff,
specialists, and care coordinators/case management. All labs and imaging personally reviewed by me. Remainder the time spent in detailed review of previous records, lab data, imaging, and other medical provider documentation.
Anticipated Discharge: > 48 hours
Subjective/Interval History
-
Date of Service: September 12, 2023
Denies CP/SOB.
Objective Data
-
Labs:
Laboratory Results
09/12/23 09/12/23
04:38 08:29
WBC 9.1
Hgb 8.1 L
Hct 27.2 L
Plt Count 217
Sodium 137
Potassium 6.1 H* Pending
Chloride 108 H
Carbon Dioxide 24
BUN 40 H
Creatinine 2.0 H
Glucose 200 H
Calcium 8.3 L
Vital Signs:
Vital Signs
Temp Pulse Resp BP Pulse Ox
98.8 F 81 16 121/61 100
09/12/23 03:00 09/12/23 07:50 09/12/23 07:31 09/12/23 07:50 09/12/23 08:00
I&O
09/11/23 09/12/23 09/13/23
06:59 06:59 06:59
Output Total 900 / 900
Balance -900 / -900
[2023-09-12 08:49] LABS: Glucose - Point of Care 248 mg/dl (70-99)
[2023-09-12] MEDS: MAGNESIUM SULFATE 50 IV (09:43)
--- NOTE | 2023-09-12 09:47 | W.PN.ID1 ---
Date of Service
Date of Service: September 12, 2023
Today's Communication
remains afebrile, without leukocytosis off of antibiotics
completed a course of cefepime
ID service will no longer actively follow this patient please recall for further questions
Assessment / Plan
Tracheitis vs Pneumonia - resolved
Chronic respiratory failure following COVID (2019); with Hx ECMO, current PM vent support
CKD
CAD
HTN
DM
Anemia
Recommendations:
remains afebrile, without leukocytosis off of antibiotics
completed a course of cefepime
ID service will no longer actively follow this patient please recall for further questions
Chief Complaint
-: Fever
Subjective / Review of Systems
afebrile
bp stable
without leukocytosis or thrombocytosis
K further elevated today
on 40% fio2 since yesterday
had bedside bronch yesterday - no significant secretions
Vital Signs / Physical Exam
Vital Signs
Vital Signs
Temp Pulse Resp BP Pulse Ox
97.9 F 81 16 121/61 100
09/12/23 07:20 09/12/23 07:50 09/12/23 07:31 09/12/23 07:50 09/12/23 08:00
Physical Exam
Constitutional: No Acute Distress and Chronically Ill
Cardiovascular: Regular Rate and S1/S2; Negative Murmur or Rub
Pulmonary: Clear and Symmetric; Negative Wheezes or Rales
Gastrointestinal: Soft, Non Tender, Non Distended and Normal Bowel Sounds
Skin: Warm and Dry; Negative Rash or Jaundice
Objective Data
Lab Data
Lab Results
09/12/23 04:38
PT 13.4 Sec (11.4-14.6) 08/31/23 14:39
INR 1.02 08/31/23 14:39
APTT 37.5 Sec (23.4-35.0) H 08/31/23 14:39
Estimated Creat Clear 26 ml/min 09/12/23 04:38
Lactic Acid Cancelled 08/31/23 18:45
Total Bilirubin 0.5 mg/dl (0.2-1.3) 08/31/23 20:18
AST 14 U/L (14-36) 08/31/23 20:18
ALT < 10 U/L (0-35) 08/31/23 20:18
Alkaline Phosphatase 63 U/L (38-126) 08/31/23 20:18
Most recent labs reviewed.
Micro Results:
09/06/23 15:39 Fungal Culture - Preliminary
Bronch Left Lower Lobe Culture in progress.
Positive cultures are reported as soon as detected.
Final report to follow in four to five weeks.
09/05/23 09:11 Blood Culture - Final
Blood/Venous No Growth - Final Report
09/05/23 09:00 Blood Culture - Final
Blood/Venous No Growth - Final Report
09/07/23 06:00 Acid Fast Bacilli Smear - Preliminary
Bronch Left Lower Lobe Acid Fast Bacilli Culture - Preliminary
09/06/23 15:39 Respiratory Culture - Final
Bronch Left Lower Lobe Serratia marcescens
Pseudomonas aeruginosa
Gram Stain - Final
09/05/23 13:11 Respiratory Culture - Final
Tracheal Aspirate Serratia marcescens
Pseudomonas aeruginosa
Gram Stain - Final
08/31/23 14:39 Blood Culture - Final
Blood/Venous Lactobacillus casei
Gram Stain - Final
08/31/23 14:39 Blood Culture - Final
Blood/Venous No Growth - Final Report
09/01/23 03:39 MRSA Screen - Final
Nose No Methicillin Resistant Staphylococcus aureus isolated.
08/31/23 14:39 Urine Culture - Final
Urine No Significant Growth
Imaging:
09/05/2023 CXR (portable): The left hemidiaphragm is again obscured suggesting opacification such as atelectasis and/or pneumonia and small left pleural effusion. Overall widespread pulmonary interstitial markings are again slightly prominent. There
is no pneumothorax or significant right pleural effusion.
08/19/2023 Renal ultrasound: Severe bilateral renal disease (left > right), increased since 2021. 4.8 mm nonobstructing left intrarenal calculus noted. No evidence for hydronephrosis.
Care Review
Plan reviewed with: Physician (Dr Lissy tarango, dispo)
[2023-09-12 10:06] LABS: Potassium 6.2 mmol/L (3.5-5.1)
[2023-09-12 10:43] LABS: Glucose - Point of Care 228 mg/dl (70-99)
[2023-09-12] MEDS: KAYEXALATE SUSPENSION 45 GRAMS RECTAL (11:04)
--- NOTE | 2023-09-12 11:27 | W.PN.PUL3 ---
Today's Communication / Plan
-
Continue mechanical ventilation without change
Will continue to attempt trach collar weans
Continue nutritional support
Observe off antibiotics
Likely will need PEG tube placement
Likely will need long-term care facility. Doubt she will be able to go home again.
Assessment
-
Mrs Shruti Rockwell is a 62 year old F with history of chronic hypoxic/hypercarbic resp failure s/p trach, post COVID illness, who p/w CC shortness of breath. The patient was recently discharged from 08/25/23 for mucus plugging. Family states that on
day of admission, the patient had decreased responsiveness. She is placed on Trilogy at night/trach collar through the day. She has been sleeping more and less conversive. They have noticed her exhaled TV on Trilogy reporting on avg <200cc
nightly. Her baseline settings are TV 350/PS8/40%/5+. Per medics, the patient was initially on 15 L but desaturated to the 80s. She had to be bagged and her saturations did improve. She is placed on vent in ER and saturations are now improved.
CXR appears similar to prior. We are consulted for eval 09/01/23.
Impression:
Hypoxemic and hypercapnic respiratory failure due to recurrent mucous plug/left lung atelectasis
ABG 08/17/2023--52/59/7 0.24
Ventilator dependent respiratory failure
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
Status post emergent bronchoscopy at the bedside 08/18/2023-mucous plugs removed from the left
Pneumonia - SCx from 09/04 and BAL from 09/05 growing Serratia marcescens + Pseudomonas aeruginosa
Left pleural effusion
CIHNTAN (Cr baseline 2.1)
Anemia-normocytic
Hypocalcemia
Hypernatremia
Metabolic and respiratory acidosis
Conditions present prior to admission:
Chronic hypercapnic/hypoxemic respiratory failure/chronic tracheostomy/nocturnal ventilation.
Severe Covid/ECMO 2019.
Diabetes.
Hypertension.
CAD/angioplasty 2020.
Recurrent UTI.
Ambulatory dysfunction/wheelchair-bound.
Chronic anemia.
Overweight.
Renal calculi.
Laparoscopic cholecystectomy 07/2020. Bilateral ureteroscopy with lithotripsy of the right renal stone and clearing of left renal pelvic fungal ball. Laminectomy. .
Plan
No new events from overnight, still on mechanical ventilation without weaning.
Remains on mechanical ventilation and unable to wean on trach collar.
Oxygen requirements baseline.
Discussed with respiratory therapist will attempt to wean as able. Trach collars.
Chronic respiratory failure:
Data from trilogy 08/16/23 showing usage 9.3 avg hours - MV 5.7 L/min - RR 23 - IPAP/EPAP 12.6/4.9 cm water - Avg VTe 249.1 - leak 32.5 L/min
Settings: Mode S, IPAP 13 EPAP 5
noted decreased tidal volume on admission.
Patient should have been on the settings TV 350/PS 8/40%/PEEP 5 per last office note-this will be adjusted upon discharge from the hospital if patient goes back on Trilogy.
Will need to discuss with her STYLHUNT to adjust ventilator settings. Prior to discharge. --> brought in patient's Trilogy machine can be adjusted at that time if patient is discharged home.
-
Unfortunately has not able to wean on trach collar. Now also with tube feedings via Dobbhoff tube.
Continue mechanical ventilation
On ACV at 16-450-5-0.4. Pk pr 34, plt pr 26
Aspiration precautions
Routine tracheostomy tube care continues
-
Continue secretion clearance interventions: Persistent left white out despite maximal interventions.
CXR on AM of 09/05 shows persistent L-atelectasis.
Dr Epstein performed bronchoscopy on 09/05 for pulmonary toilet purposes and BAL of LLL --> Cx grew Serratia marcescens + Pseudomonas aeruginosa � follow-up sensitivities
During bronch, there was a mucosal abnormality at her LLL at the secondary fran, which appeared white/shiny --> concern for dysplasia but cytology negative for malignancy.
Maximal secretion clearance interventions ongoing:
Sport bed
Continue VEST/mucomyst trach instillations and alb nebs q6h
DNs changed to alb nebs as above and prn
CXR 09-08 with recurrent L atelectasis
Follow up CXR 09-09 still with no change in L atelectasis
Chest x-ray 09/11/2023: Reviewed, showed improved aeration on the left but persistent left sided atelectasis.
Bronchoscopy at the bedside Dr. Treviño 09/11/2023:, Tolerated well per no evidence for large airway secretions bilaterally. No endobronchial masses. Secondary fran left lower lobe patchy leukoplakia. Has been biopsied in the past.
Nonobstructive.
Suspect chest x-ray is related to compressive atelectasis, possible some degree of pleural effusion/recovering pneumonia.
Continue supportive care.
Tracheostomy has been exchanged:
Dr. Powell evaluated her on 09/05 --> #[id number] placed on 09/05 ([facility]); please make sure that extra tracheostomy is at bedside.
Pneumonia:
Discontinued antibiotics on 2023: Afebrile. Cultures negative. Fever again on AM of 09/04 --> ABx restarted with cefepime; trach secs culture 09-04 + BAL 09-05 both growing Serratia marcescens + Pseudomonas aeruginosa.
Positive blood culture 08-30 suspect contaminant (Lactob casei)
ID has evaluated the patient, (completed 5 d cefepime 09-08)-infectious disease has signed off.
Continue to monitor off antibiotics.
Swallowing dysfunction:
Recurrent microaspiration also has been contemplated in the past. She has been evaluated by speech therapy multiple times in the past. Diet has been modified.
Primary team ordered video barium swallow--> unfortunately patient is not safe to be placed back onto trach collar at this time.
Dobbhoff placed by primary team - she may end up needing G-tube prior to discharge if unable to be weaned back down to trach collar during the day.
Tube feeds � if patient unable to be successfully weaned to trach collar over the weekend
Suspect will require PEG tube placement prior to discharge.
-
DVT prophylaxis-on heparin
Early mobilization/bedside range of motion-baseline wheelchair-bound and ambulatory dysfunction
Nutritional support via Dobbhoff tube.
I agree this patient likely will need LTAC.
Prognosis is very poor long-term. Depending on extent of family desire for aggressive care, hospice may be an option
Continue support as above
Likely will need PEG tube placement prior to discharge.
Dr. Treviño updated family 09/11/2023.
--------
The patient was last seen in the pulmonary office by Kalpana Mobley NP 06/01/2023 and has an appointment 09/07/2023 at 10:30 AM --> this will be re-scheduled.
Can eval for discharge planning once Trilogy issue resolved and new pneumonia effectively treated.
D/w RT and RN 09-08

Diagnostic Data:
CXR 04-27, reviewed, L basilar atelectasis
CXR 04-19, resolved total L atelectasis, currently back to chronic L basilar atelectasis. New tracheostomy
CXR 04-16, portable, L basilar atelectasis
CXR 04/11/22- . Complete opacification of the left hemithorax, likely on the basis of a large pleural effusion and compressive atelectasis upon the left lung. Mild right basilar pneumonia suspected
Chest x-ray 08/17/2023-near complete opacification throughout the left Jovanni thorax
Echocardiogram 01/10/22-EF 60-65%, no significant valvular disease, small pericardial effusion
Echocardiogram 03/22/22: Normal left ventricular chamber size. Normal left ventricular systolic�function. Normal regional wall motion. Normal left ventricular wall thickness.�Left ventricular ejection fraction is 60-65%. Mild tricuspid
regurgitation.�Small to moderate pericardial effusion without evidence of hemodynamic�compromise.�Compared to the previous echo Dec 2021, there is no significant change.
CT CHEST 04/11/22- �A moderate to large left pleural effusion and complete collapse/atelectasis of the left lung account for the left hemithorax opacification on the prior chest radiograph. Findings are in part likely secondary to mucous plugging
given the presence of opacification of the left mainstem bronchus and left upper and lower lobe bronchi, patchy opacifications right middle and lower lobe suspicious for pneumonia, moderate right pleural effusion and ill-defined sclerotic lesion
T12, osseous metastasis not completely excluded
CT CHEST 03/22/22 - There is no CT evidence for pulmonary embolism. No aortic dissection.There are extremely large bilateral pleural effusions right greater than left and associated bilateral consolidation most prominent in the left lower
lobe.Cardiomegaly. Increased pericardial effusion.
CT chest 08/17/2023-occluded left mainstem bronchus presumably mucous plugs with complete atelectasis left lung moderate size left pleural effusion, small to moderate right pleural effusion
VSE 04/28/22: No aspiration. Laryngeal penetration with cough with thin liquids by cup.
Spirometry 09/09/21-FEV1 790 mL-36%, FVC 790 mL 27%. Some difficulties with maneuver and thus may offer unreliability. Severe restriction.�������
PFT 02/08/22-FVC 1.01/30%, FEV1 0.70/35%, ratio 69%, unable to perform lung volumes and diffusing capacity.
Subjective Data
-
Date of Service:
Date of Service: September 12, 2023
Chief Complaint: Pulmonary Follow Up (Acute respiratory failure/mucous plugging.)
Subjective:
No new overnight events
Tolerated bronchoscopy on 09/11/2023 without complications.
Review of Systems
General: Fever (n) and Other (Difficult to obtain due to tracheotomy status)
Objective Data
Data Reviewed
Vital Signs / I&O / Oxygen:
Vital Signs
Temp Pulse Resp BP Pulse Ox
97.9 F 79 18 121/61 98
09/12/23 07:20 09/12/23 10:22 09/12/23 10:22 09/12/23 07:50 09/12/23 10:22
Intake and Output
09/11/23 09/12/23 09/13/23
06:59 06:59 06:59
Output Total 900 / 900
Balance -900 / -900
SaO2 [A/C] 100
SaO2 98
Physical Exam
General: Respiratory Distress (n)
HEENT: Normocephalic, Anicteric and Tracheotomy
Cardiovascular: S1-S2 and Peripheral Edema (+1 lower extremity edema (L>R))
Respiratory: Wheeze (Negative), Crackles (Bilaterally), Rhonchi (Bilaterally (L >R)), Non-Labored Respirations and Other (Mechanical breath sounds heard bilaterally)
GI: Soft, Non Distended, Non Tender and Normal Bowel Sounds
Neurology: Lethargic
Skin: Warm and Dry
Labs/Micro/Reports
Lab Data
09/12/23 04:38
Microbiology
09/06/23 15:39 Bronch Left Lower Lobe Fungal Culture - Preliminary
Culture in progress.
Positive cultures are reported as soon as detected.
Final report to follow in four to five weeks.
09/05/23 09:11 Blood/Venous Blood Culture - Final
No Growth - Final Report
09/05/23 09:00 Blood/Venous Blood Culture - Final
No Growth - Final Report
09/07/23 06:00 Bronch Left Lower Lobe Acid Fast Bacilli Smear - Preliminary
09/07/23 06:00 Bronch Left Lower Lobe Acid Fast Bacilli Culture - Preliminary
--- NOTE | 2023-09-12 11:56 | PTCARENOTE ---
Rec'd pt this AM. less communicative today. Kayexalate enema given with much difficulty. Pt deasturated several times during procedure and hygiene that followed. Updated Dr. Yuan.
[2023-09-12 12:46] LABS: Glucose - Point of Care 232 mg/dl (70-99)
[2023-09-12] MEDS: LOKELMA 10 GRAM PO ×2 (14:19→18:10)
--- NOTE | 2023-09-12 14:35 | CON.GI ---
Addendum entered and electronically signed by Adrian Aguilar MD 09/12/23 15:35:
Patient seen and examined, agree with nurse practitioner. Patient with chronic respiratory failure secondary to previous COVID status post trach in 2019, now with need for enteral nutrition route. She was admitted again with increasing respiratory
failure, has been vent dependent unable to deflate the cuff. She does nod to questions appropriately, and in the past had been eating okay when the cuff was deflated. The patient is unsure about previous PEG though does have abdominal scars. I
tried calling the patient's daughter, and left a message. The patient does not in agreement that she would be agreeable for PEG tube, and after family discussion we will tentatively plan this week, probably , pending electrolytes including
potassium magnesium status, and further discussions with speech pathology.
Original Note:
Consultation
-
Date/Time Consultation Requested: 09/12/23 1015
Date/Time Consultation Performed: 09/12/23 1430
Requesting Provider: Duane Yuan MD
Performing Provider: SATINDER Mendoza, Valentin Aguilar MD
Reason for Consultation: peg evaluation
Medical History
Chief Complaint / HPI
Chief Complaint: dysphagia
History of Present Illness:
Pt is a 62yo presents with multiple medical problems including complicated course of covid in 2019 with ecmo/trach with persistent resp failure. She now presents with persistent respiratory issues and asked to evaluate for PEG. She has been unable
to participate for speech eval due to continued need for cuff up with resp issues and inability to wean with inability to work with speech therapy. She been receiving nutrition from [facility].
Pt currently nods to some questions but denies nausea, vomiting, abdominal pain, or bleeding. She is noted with some looser green stools. Pt unsure about peg in past and I do not see listed on prior records. Labs notable for chronic anemia
with hbg 8.1 with prior transfusions, stable INR 1.02 on 08/30 recent K elevation. No current anticoagulation other than SQ heparin, and daily ASA.
Past Medical History
Past Medical History: CAD (prior angioplasty), HTN, NIDDM and Other (post covid illness, trach, anemia, CHINTAN, frequent UTI, ambulatory dysfunction, renal stones, )
Past Surgical History: Cholecystectomy, Gynecological (), Orthopedic (lamiectomy) and Urological (uteroscopy with lithotripsy for right renal stone and clearing renal pelvic fungal ball)
Social History
Tobacco: Non-Smoker
Alcohol: None
Drug: None
Personal:
Living: With Family
Employment: Disabled
Family History
Family History: Reviewed & Not Pertinent
Allergies / Home Medications
Allergy/AdvReac Type Severity Reaction Status Date / Time
clarithromycin Allergy TACHYCARDIA Verified 08/31/23 14:28
�Medication �Instructions �Recorded
acetaminophen 500 mg tablet 1,000 mg (2 x 500 mg) PO Q6HPRN 08/20/20
(Tylenol Extra Strength) PRN mild pain/ temp>100.5 F
insulin lispro 100 unit/mL 0 sliding scale dose SC ACHS 09/10/20
subcutaneous pen (Humalog KwikPen Diabetes
(U-100) Insulin)
ferrous gluconate 324 mg (37.5 mg 324 mg PO BID Supplement 11/27/21
iron) tablet
metformin 500 mg tablet,extended 1,000 mg PO BID@0800,1700 Diabetes 11/27/21
release 24 hr
metoprolol tartrate 25 mg tablet 50 mg PO BID Blood pressure 01/10/22
loratadine 10 mg tablet (Allergy 10 mg PO DAILY PRN allergy symptoms 01/30/22
Relief (loratadine))
atorvastatin 20 mg tablet 20 mg PO QPM High cholesterol #30 02/01/22
tabs
doxazosin 1 mg tablet 1 mg PO HS Blood pressure #30 tabs 02/01/22
cholecalciferol (vitamin D3) 25 25 mcg PO DAILY Supplement 03/22/22
mcg (1,000 unit) tablet
cyanocobalamin (vitamin B-12) 1,000 mcg PO DAILY Supplement 03/22/22
1,000 mcg tablet
ipratropium 0.5 mg-albuterol 3 mg 3 ml inhalation R TID 08/17/23
(2.5 mg base)/3 mL nebulization Lung/Breathing Issues
soln
pantoprazole 40 mg tablet,delayed 40 mg PO DAILYPRN PRN gi issues 08/17/23
release
tirzepatide 7.5 mg/0.5 mL 7.5 mg SC TANG Diabetes 08/17/23
subcutaneous pen injector
(Mounjaro)
amlodipine 10 mg tablet (Norvasc) 10 mg PO DAILY Blood Pressure 08/31/23
aspirin 81 mg tablet,delayed 81 mg PO DAILY Blood Clot 08/31/23
release Prevention/Tx
guaifenesin 600 mg tablet, 600 mg PO Q12 Congestion 08/31/23
extended release 12 hr
insulin detemir U-100 100 unit/mL 10 unit SC HS Diabetes 08/31/23
(3 mL) subcutaneous pen (Levemir
FlexPen)
sodium bicarbonate 650 mg tablet 650 mg PO BID Kidney Disease 08/31/23
Review of Systems
-
History Source: Patient
Constitutional: Reports No Symptoms
EENT: Reports No Symptoms
Respiratory: Reports No Symptoms
Abdomen/GI: Reports Diarrhea (looser stool)
: Reports No Symptoms
Musculoskeletal: Reports No Symptoms
Skin: Reports No Symptoms
Neurological: Reports Weakness (diffuse )
Hematologic/Lymphatic: Reports No Symptoms
Vital Signs
Temp Pulse Resp BP Pulse Ox
99.1 F 81 16 132/65 97
09/12/23 11:25 09/12/23 13:00 09/12/23 13:00 09/12/23 13:00 09/12/23 13:00
Physical Exam
Exam
General: Other (chronic ill appearing nods to some questions)
HEENT: Normocephalic and Anicteric
Respiratory: Other (decreased )
Cardiac: Regular Rhythm
GI: Soft, Non Tender, Non Distended and Other (few abd scar right sided )
Musculoskeletal: No Clubbing and No Cyanosis
Skin: Warm and Dry
Neuro: Awake, Alert and Other (nods to some questions then drifts off )
Psych: Calm
Results
WBC 9.1 10^3/uL (4.8-10.8) 09/12/23 04:38
Hgb 8.1 g/dL (12.0-16.0) L 09/12/23 04:38
Hct 27.2 % (37.0-47.0) L 09/12/23 04:38
MCV 93.8 fL (81.0-99.0) 09/12/23 04:38
Plt Count 217 10^3/uL (130-400) 09/12/23 04:38
Absolute Neuts (auto) 5.7 10^3/uL (1.4-6.5) 09/01/23 03:39
PT 13.4 Sec (11.4-14.6) 08/31/23 14:39
INR 1.02 08/31/23 14:39
APTT 37.5 Sec (23.4-35.0) H 08/31/23 14:39
Sodium Cancelled 09/12/23 14:00
Potassium Cancelled 09/12/23 14:00
Chloride Cancelled 09/12/23 14:00
Carbon Dioxide Cancelled 09/12/23 14:00
BUN Cancelled 09/12/23 14:00
Creatinine Cancelled 09/12/23 14:00
Calcium Cancelled 09/12/23 14:00
Total Bilirubin 0.5 mg/dl (0.2-1.3) 08/31/23 20:18
AST 14 U/L (14-36) 08/31/23 20:18
ALT < 10 U/L (0-35) 08/31/23 20:18
Alkaline Phosphatase 63 U/L (38-126) 08/31/23 20:18
Diagnostic Image Results:
Prior GI Procedures:
EGD: pt unsure
Colonoscopy: pt unsure
Assessment / Plan
-
Pt is a 62yo presents with multiple medical problems including complicated course of covid in 2020 with ecmo/trach with persistent resp failure. She now presents with persistent respiratory issues and asked to evaluate for PEG. She has been unable
to participate for speech eval due to continued need for cuff up with resp issues and inability to wean with inability to work with speech therapy. She has been receiving nutrition from [facility].
-nutritional evaluation
-chronic hypoxemia with chronic vent support
-Respiratory cultures with pseudomonas and Serratia (treated as aspiration PNA)
-metabolic encephalopathy possible chronic hypoxemia related
-anemia requiring transfusion during admission
-hyperkalemia
-long covid
other medical problems:
-CKD stage 4
-DM
-hx pericardial effusion
-HTN
c-diff
Ambulatory dysfunction
Spinal stenosis
Overweight
PLAN:
asked to eval for peg
will need to discuss with family- daughter Martina osman was listed on chart [phone] but I did also review with spouse with [facility] placement several days ago
unclear if pt had prior peg in past
reviewed Dr. Yuan notes with considering hospice and also reviewed with social work as pt with some difficulty placement issues with vent and has returned home in past
left message to confirm with speech no role for VSE or further speech evaluation-- then primary speech therapist following off today but will return in AM
remain on Heparin RTC would hold dose prior to procedure if proceeding
trend CBC with anemia transfuse as needed if peg completed will proceed with EGD but may be chronic issue with illness and CKD
correct elevated K per hospitalist
-
-
Thank you for consultation and allowing me to participate in the patient's care. Please call the director of education GI physician during the after hours with any questions or concerns.
--- NOTE | 2023-09-12 16:05 | CM ---
CM reviewed chart- remains in IMU on vent support and ADC >48 hours
GI tentative plan for peg later this week
CM will continue to follow for dc planning
Discharge Disposition- return home with needs
[2023-09-12 16:39] LABS: Blood Urea Nitrogen 42 mg/dl (7-17); Calcium 8.5 mg/dl (8.4-10.2); Carbon Dioxide 22 mmol/L (22-30); Chloride 107 mmol/L (98-107); Estimated Creatinine Clearance 26 ml/min; Glucose 209 mg/dl (70-99); Potassium 6.1 mmol/L (3.5-5.1); Sodium 136 mmol/L (135-145); eGFR 27.38
[2023-09-12] MEDS: LIPITOR 20 MG PO (17:20)
[2023-09-12] MEDS: NOVOLOG FLEXPEN-LOW RESISTANCE 3 UNITS SC (18:10)
[2023-09-12 18:18] LABS: Glucose - Point of Care 276 mg/dl (70-99)
[2023-09-12] MEDS: CARDURA 1 MG PO (22:01)
[2023-09-12 22:27] LABS: Potassium 5.6 mmol/L (3.5-5.1)
[2023-09-12] MEDS: NOVOLOG FLEXPEN-LOW RESISTANCE SC (22:58)
[2023-09-12 23:05] LABS: Glucose - Point of Care 172 mg/dl (70-99)
[2023-09-12] MEDS: LANTUS 0.15 UNITS SC (23:05)
--- NOTE | 2023-09-12 23:16 | PTCARENOTE ---
assumed care of patient- pt arouses to voice- able to node head appropriately or mouth words- drowsy. on a/c vent- 40%/16/450/5- suctioned a few times for thick clear/yellow secretions. pt inc of bowel and bladder- full bath given. potassium level
rechecked per order- 5.6. notified covering CLIENT ENGAGEMENT MANAGER, orders to given IV insulin with dextrose pt BS 172- pt CLIENT ENGAGEMENT MANAGER to hold SSI and okay to given lantus. repeat potassium level 0111. pt in b/l wrist restraints. no complaints of pain. care ongoing.
[2023-09-13] VITALS (11 sets, daily range): BP systolic 124–168; BP diastolic 56–78
[2023-09-13] MEDS: MUCOMYST 10% 4 ML INH ×4 (02:16→19:55)
[2023-09-13] MEDS: VENTOLIN NEBULES 2.5 MG INH ×5 (02:16→19:55)
[2023-09-13 03:02] LABS: Potassium 5.8 mmol/L (3.5-5.1)
[2023-09-13] MEDS: DEXTROSE 50% SYRINGE 25 GRAMS IV (04:07)
[2023-09-13] MEDS: NOVOLIN R 0.1 UNITS IV (04:07)
[2023-09-13] MEDS: NOVOLOG FLEXPEN-LOW RESISTANCE SC ×2 (04:08→23:37)
[2023-09-13] MEDS: LOKELMA 10 GRAM PO ×3 (04:08→18:07)
[2023-09-13 04:18] LABS: Glucose - Point of Care 220 mg/dl (70-99)
--- NOTE | 2023-09-13 04:21 | PTCARENOTE ---
repeat K resulted 5.8- notified covering CHUTE BUILDER- IV insulin and dextrose given again- Kayexalate given early per CHUTE BUILDER- SSI held again this AM.
[2023-09-13 06:27] LABS: Hemoglobin 7.9 g/dL (12.0-16.0); Mean Corp Hgb Conc. 31.6 g/dL (33.0-37.0); Mean Corpuscular Hgb 28.3 pg (27.0-31.0); Mean Corpuscular Volume 89.6 fL (81.0-99.0); Mean Platelet Volume 11.5 fL (7.4-10.4); Platelet Count 233 10^3/uL (130-400); Red Blood Cell Count 2.79 10^6/uL (4.20-5.40); Red Cell Dist. Width 15.2 % (11.5-14.5)
[2023-09-13 06:42] LABS: Blood Urea Nitrogen 42 mg/dl (7-17); Calcium 8.5 mg/dl (8.4-10.2); Carbon Dioxide 22 mmol/L (22-30); Chloride 106 mmol/L (98-107); Estimated Creatinine Clearance 27 ml/min; Glucose 207 mg/dl (70-99); Magnesium 1.7 mg/dl (1.6-2.3); Phosphorus 3.7 mg/dl (2.5-4.5); Potassium 5.5 mmol/L (3.5-5.1); Sodium 133 mmol/L (135-145); eGFR 29.12
[2023-09-13] MEDS: NORVASC 10 MG PO (08:14)
[2023-09-13] MEDS: FEOSOL 325 MG PO (08:14)
[2023-09-13] MEDS: ASPIR LOW (ENTERIC COATED) 81 MG PO (08:15)
[2023-09-13] MEDS: DESENEX/MITRAZOL/ZEASORB 1 APPLIC TOPICAL ×2 (08:15→19:55)
[2023-09-13] MEDS: HEPARIN 5000 UNITS SC ×2 (08:15→16:11)
[2023-09-13] MEDS: VITAMIN B-12 1000 MCG PO (08:15)
[2023-09-13] MEDS: ROBITUSSIN 200 MG TUBE ×3 (08:16→19:55)
[2023-09-13] MEDS: LOPRESSOR 50 MG PO ×2 (08:16→19:55)
[2023-09-13] MEDS: VITAMIN D3 (cholecalciferol) 25 MCG PO (08:17)
[2023-09-13] MEDS: SODIUM BICARBONATE 650 MG PO ×3 (08:17→19:55)
--- NOTE | 2023-09-13 10:04 | W.PN.PUL3 ---
Today's Communication / Plan
-
Continue mechanical ventilation without change
Nutritional support
Monitor for infection
Secretion clearance interventions
Range of motion
PEG tube being considered, likely best solution at this point.
Needs placement for liberation from mechanical ventilation. Likely LTAC.
Assessment
-
Mrs Shruti Rockwell is a 62 year old F with history of chronic hypoxic/hypercarbic resp failure s/p trach, post COVID illness, who p/w CC shortness of breath. The patient was recently discharged from 08/25/23 for mucus plugging. Family states that on
day of admission, the patient had decreased responsiveness. She is placed on Trilogy at night/trach collar through the day. She has been sleeping more and less conversive. They have noticed her exhaled TV on Trilogy reporting on avg <200cc
nightly. Her baseline settings are TV 350/PS8/40%/5+. Per medics, the patient was initially on 15 L but desaturated to the 80s. She had to be bagged and her saturations did improve. She is placed on vent in ER and saturations are now improved.
CXR appears similar to prior. We are consulted for eval 09/01/23.
Impression:
Hypoxemic and hypercapnic respiratory failure due to recurrent mucous plug/left lung atelectasis
ABG 08/17/2023--52/59/7 0.24
Ventilator dependent respiratory failure
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
Status post emergent bronchoscopy at the bedside 08/18/2023-mucous plugs removed from the left
Pneumonia - SCx from 09/04 and BAL from 09/05 growing Serratia marcescens + Pseudomonas aeruginosa
Left pleural effusion
CHINTAN (Cr baseline 2.1)
Anemia-normocytic
Hypocalcemia
Hypernatremia
Metabolic and respiratory acidosis
Conditions present prior to admission:
Chronic hypercapnic/hypoxemic respiratory failure/chronic tracheostomy/nocturnal ventilation.
Severe Covid/ECMO 2019.
Diabetes.
Hypertension.
CAD/angioplasty 2020.
Recurrent UTI.
Ambulatory dysfunction/wheelchair-bound.
Chronic anemia.
Overweight.
Renal calculi.
Laparoscopic cholecystectomy 07/2020. Bilateral ureteroscopy with lithotripsy of the right renal stone and clearing of left renal pelvic fungal ball. Laminectomy. .
Plan
No new events from overnight, still on mechanical ventilation without weaning.
Remains on mechanical ventilation and unable to wean on trach collar.
Oxygen requirements baseline. 40% FiO2.
Continues to have intermittent secretions.
Today 09/13/2023: Did not tolerate pressure support ventilation due to low tidal volume/increased work of breathing. Unable to tolerate cuff deflation.
Significant muscle weakness, likely critical illness polyneuropathy.
Chronic respiratory failure: Patient on trilogy ventilator at home. This admission settings where not optimal.Data from trilogy 08/16/23 showing usage 9.3 avg hours - MV 5.7 L/min - RR 23 - IPAP/EPAP 12.6/4.9 cm water - Avg VTe 249.1 - leak 32.5
L/min
Settings: Mode S, IPAP 13 EPAP 5
-
Currently depending on mechanical ventilation 10/10: As above unable to wean the last several days.
Unfortunately has not able to wean on trach collar. Now also with tube feedings via Dobbhoff tube.
Continue mechanical ventilation
On ACV at 16-450-5-0.4.
Peak pressure 34, plateau pressure 21.
Aspiration precautions
Routine tracheostomy tube care continues
Continue daily trials of weaning.
As above said that significant muscle weakness with critical illness will neuropathy. Will require placement.
-
Continue secretion clearance interventions: Persistent left white out despite maximal interventions.
CXR on AM of 09/05 shows persistent L-atelectasis.
Dr Epstein performed bronchoscopy on 09/05 for pulmonary toilet purposes and BAL of LLL --> Cx grew Serratia marcescens + Pseudomonas aeruginosa � follow-up sensitivities
During bronch, there was a mucosal abnormality at her LLL at the secondary fran, which appeared white/shiny --> concern for dysplasia but cytology negative for malignancy.
Maximal secretion clearance interventions ongoing:
Sport bed
Continue VEST/mucomyst trach instillations and alb nebs q6h
DNs changed to alb nebs as above and prn
CXR 09-08 with recurrent L atelectasis
Follow up CXR 09-09 still with no change in L atelectasis
Chest x-ray 09/11/2023: Reviewed, showed improved aeration on the left but persistent left sided atelectasis.
Bronchoscopy at the bedside Dr. Treviño 09/11/2023:, Tolerated well per no evidence for large airway secretions bilaterally. No endobronchial masses. Secondary fran left lower lobe patchy leukoplakia. Has been biopsied in the past.
Nonobstructive.
Suspect chest x-ray is related to compressive atelectasis, possible some degree of pleural effusion/recovering pneumonia.
Continue supportive care.
Tracheostomy has been exchanged:
Dr. Powell evaluated her on 09/05 --> #[id number] placed on 09/05 (mercy); please make sure that extra tracheostomy is at bedside.
Pneumonia:
Discontinued antibiotics on 2023: Afebrile. Cultures negative. Fever again on AM of 09/04 --> ABx restarted with cefepime; trach secs culture 09-04 + BAL 09-05 both growing Serratia marcescens + Pseudomonas aeruginosa.
Positive blood culture 08-30 suspect contaminant (Lactob casei)
ID has evaluated the patient, (completed 5 d cefepime 09-08)-infectious disease has signed off.
Continue to monitor off antibiotics.
Swallowing dysfunction:
Recurrent microaspiration also has been contemplated in the past. She has been evaluated by speech therapy multiple times in the past. Diet has been modified.
Primary team ordered video barium swallow--> unfortunately patient is not safe to be placed back onto trach collar at this time.
-
I favor placing PEG tube. She is unable to tolerate cuff deflation. Unable to tolerate brief weaning trials even on pressure support ventilation. 09/13/2023 per
-
DVT prophylaxis-on heparin
Early mobilization/bedside range of motion-baseline wheelchair-bound and ambulatory dysfunction
Nutritional support via Dobbhoff tube.
Will start DC planning to LTAC if family desires. Dr. Treviño updated her 09/13/2023 need for PEG tube and eventual placement.
Prognosis is very poor long-term. Depending on extent of family desire for aggressive care, hospice may be an option
Continue support as above
Dr. Treviño updated family 09/11/2023.
--------
The patient was last seen in the pulmonary office by Kalpana Mobley NP 06/01/2023 and has an appointment 09/07/2023 at 10:30 AM --> this will be re-scheduled.
Can eval for discharge planning once Trilogy issue resolved and new pneumonia effectively treated.
D/w RT and RN 09-08

Diagnostic Data:
CXR 04-27, reviewed, L basilar atelectasis
CXR 04-19, resolved total L atelectasis, currently back to chronic L basilar atelectasis. New tracheostomy
CXR 04-16, portable, L basilar atelectasis
CXR 04/11/22- . Complete opacification of the left hemithorax, likely on the basis of a large pleural effusion and compressive atelectasis upon the left lung. Mild right basilar pneumonia suspected
Chest x-ray 08/17/2023-near complete opacification throughout the left Jovanni thorax
Echocardiogram 01/10/22-EF 60-65%, no significant valvular disease, small pericardial effusion
Echocardiogram 03/22/22: Normal left ventricular chamber size. Normal left ventricular systolic�function. Normal regional wall motion. Normal left ventricular wall thickness.�Left ventricular ejection fraction is 60-65%. Mild tricuspid
regurgitation.�Small to moderate pericardial effusion without evidence of hemodynamic�compromise.�Compared to the previous echo Dec 2021, there is no significant change.
CT CHEST 04/11/22- �A moderate to large left pleural effusion and complete collapse/atelectasis of the left lung account for the left hemithorax opacification on the prior chest radiograph. Findings are in part likely secondary to mucous plugging
given the presence of opacification of the left mainstem bronchus and left upper and lower lobe bronchi, patchy opacifications right middle and lower lobe suspicious for pneumonia, moderate right pleural effusion and ill-defined sclerotic lesion
T12, osseous metastasis not completely excluded
CT CHEST 03/22/22 - There is no CT evidence for pulmonary embolism. No aortic dissection.There are extremely large bilateral pleural effusions right greater than left and associated bilateral consolidation most prominent in the left lower
lobe.Cardiomegaly. Increased pericardial effusion.
CT chest 08/17/2023-occluded left mainstem bronchus presumably mucous plugs with complete atelectasis left lung moderate size left pleural effusion, small to moderate right pleural effusion
VSE 04/28/22: No aspiration. Laryngeal penetration with cough with thin liquids by cup.
Spirometry 09/09/21-FEV1 790 mL-36%, FVC 790 mL 27%. Some difficulties with maneuver and thus may offer unreliability. Severe restriction.�������
PFT 02/08/22-FVC 1.01/30%, FEV1 0.70/35%, ratio 69%, unable to perform lung volumes and diffusing capacity.
Subjective Data
-
Date of Service:
Date of Service: September 13, 2023
Chief Complaint: Pulmonary Follow Up (Acute respiratory failure/mucous plugging.)
Subjective:
No overnight events
Pulmonary mechanics stable
Intermittent secretions through the tracheal tube
Unable to provide detailed history
Has not been able to wean off ventilator due to apnea/low tidal volumes.
Review of Systems
General: Fever (n) and Other (Difficult to obtain due to tracheotomy status.)
Objective Data
Data Reviewed
Vital Signs / I&O / Oxygen:
Vital Signs
Temp Pulse Resp BP Pulse Ox
98.9 F 94 18 143/65 99
09/13/23 07:57 09/13/23 08:16 09/13/23 08:11 09/13/23 08:16 09/13/23 08:48
Intake and Output
09/12/23 09/13/23 09/14/23
06:59 06:59 06:59
Output Total 900 / 900
Balance -900 / -900
SaO2 [A/C] 99
SaO2 99
Physical Exam
General: Respiratory Distress (n)
HEENT: Normocephalic, Anicteric and Tracheotomy
Cardiovascular: S1-S2 and Peripheral Edema (+1 lower extremity edema (L>R))
Respiratory: Wheeze (Negative), Crackles (Bilaterally), Rhonchi (Bilaterally (L >R)), Non-Labored Respirations and Other (Mechanical breath sounds heard bilaterally)
GI: Soft, Non Distended, Non Tender and Normal Bowel Sounds
Neurology: No Motor Deficits and Lethargic
Skin: Warm and Dry
Labs/Micro/Reports
Lab Data
09/13/23 06:17
09/13/23 06:17
Microbiology
09/06/23 15:39 Bronch Left Lower Lobe Fungal Culture - Preliminary
Culture in progress.
Positive cultures are reported as soon as detected.
Final report to follow in four to five weeks.
09/05/23 09:11 Blood/Venous Blood Culture - Final
No Growth - Final Report
09/05/23 09:00 Blood/Venous Blood Culture - Final
No Growth - Final Report
--- NOTE | 2023-09-13 10:35 | W.PN.HOSP.TC ---
Today's Communication/Plan
-
see bold
Assessment / Plan
Assessment / Plan
62-year-old female with chronic tracheostomy uses ventilator at night and trach collar during the day. She was admitted recently and was discharged on 08/25/2023 but she was admitted with acute on chronic hypoxic hypercapnic respiratory failure with
opacification of the left hemithorax. Patient underwent bronchoscopy on 08/18/2023 mucous plugs removed from the left. BAL grew Proteus and completed 7-day course of Unasyn per ID. She also had CHINTAN with CKD stage IV FLAVIO inhibitor was held.
Ultrasound of the kidney showed bilateral renal disease. She comes back with decreased responsiveness.
Gen: NAD, appears chronically ill
Neck: supple.
CV: remains RRR, +S1/S2, no m/r/g.
Resp: remains CTAB anteriorly, no rales, wheezes, or rhonchi.
Abd: remains +BS, soft, NT, ND
Skin: No rashes.
Psych: calm
09/06/23 15:39 Bronch Left Lower Lobe Fungal Culture - Preliminary
Culture in progress.
Positive cultures are reported as soon as detected.
Final report to follow in four to five weeks.
09/05/23 09:11 Blood/Venous Blood Culture - Final
No Growth - Final Report
09/05/23 09:00 Blood/Venous Blood Culture - Final
No Growth - Final Report
09/07/23 06:00 Bronch Left Lower Lobe Acid Fast Bacilli Smear - Preliminary
09/07/23 06:00 Bronch Left Lower Lobe Acid Fast Bacilli Culture - Preliminary
09/06/23 15:39 Bronch Left Lower Lobe Respiratory Culture - Final
Serratia marcescens
Pseudomonas aeruginosa
09/06/23 15:39 Bronch Left Lower Lobe Gram Stain - Final
09/05/23 13:11 Tracheal Aspirate Respiratory Culture - Final
Serratia marcescens
Pseudomonas aeruginosa
09/05/23 13:11 Tracheal Aspirate Gram Stain - Final
08/31/23 14:39 Blood/Venous Blood Culture - Final
Lactobacillus casei
08/31/23 14:39 Blood/Venous Gram Stain - Final
08/31/23 14:39 Blood/Venous Blood Culture - Final
No Growth - Final Report
09/01/23 03:39 Nose MRSA Screen - Final
No Methicillin Resistant Staphylococcus aureus isolated.
08/31/23 14:39 Urine Urine Culture - Final
No Significant Growth
Echo 08/18/23: EF 60 to 65%. Mild concentric LVH. Normal diastolic function. Normal RV size and function. Mild TR. Pulmonary pressure 30 cm of mercury. Small pericardial effusion without hemodynamic compromise
Acute on chronic hypercapnic/hypoxemic respiratory failure:
-With acute respiratory acidosis
-FORMING ACID DUMPER the patient's TV has decreased to an average of less than 200cc nightly (will be rectified with [employer]).
-continues on ATC ACMV
-Wean as tolerated during day time
-VSE when patient can be on a trach collar
-s/p bronchoscopy 09/06/23
-ENT saw in consult and placed #6 Shiley (Long) on 09/06/2023 as there was concern for air leak
-Respiratory cultures with pseudomonas and Serratia (treated as aspiration PNA)
-chest PT
-appreciate ID, pt completed 5 days cefepime. Patient to start renally dosed Levofloxacin if relapses/develops fever.
-Repeat Bronchoscopy 09/11/23 was unremarkable (no secretions, masses, or mucous plugging)
Acute metabolic encephalopathy on admission (and intermittent since):
-EEG, CT of the head all negative
-likely due to inadequate TV at home causing acute on chronic hypercapnic and hypoxemic respiratory failure with acute respiratory acidosis (on 30/07 at home as per family)
Other problems:
Anemia of chronic disease and Fe deficiency: Hb relatively stable s/p 2U pRBCs (note Hb drop from 8.9 to 8.1)
One set of BCx with lactobacillus Casei: Likely contaminant
Femoral line removed and Right IJ placed 09/07/23
Hypokalemia and hyperkalemia: s/p rectal Kayexalate, D50W/insulin, Lokelma. Cont Lokelma, c/s renal.
Hypomagnesemia: 2g IV Mg
Hypocalcemia
Positive LILIAN Screen: OP Rheum Eval
CKD4, Cr at baseline. Sodium bicarb
DM2: cont SSI/accuchecks/Lantus
h/o small to moderate pericardial effusion
Essential hypertension: cont Norvasc/doxazosin.
Hyperlipidemia: Continue statin
Coronary artery disease status post angioplasty: cont ASA/BB
h/o C. diff
COVID pneumonia 2019 with ECMO and ventilator and 3-month hospital stay at [place]
Ambulatory dysfunction, wheelchair-bound since June 2019
Spinal stenosis
Overweight per BMI criteria
Hypoalbuminemia
Nutrition: currently with Dobbhoff tube. GI following for PEG (possibly 09/14/23).
FULL/Heparin
Extremely poor prognosis. Patient is hospice appropriate. I did explain to the patient's daughter, on 09/11/23, that she will likely need LTAC on discharge (I did not mention hospice).
Pt's updated at bedside.
Total time spent on today's encounter was 50 minutes which included time spent in counseling the patient/family regarding diagnosis and treatment plan as listed above, goals of care, and symptom management. Case was discussed with nursing staff,
specialists, and care coordinators/case management. All labs and imaging personally reviewed by me. Remainder the time spent in detailed review of previous records, lab data, imaging, and other medical provider documentation.
Anticipated Discharge: > 48 hours
Subjective/Interval History
-
Date of Service: September 13, 2023
Pt sleeping.
Objective Data
-
Labs:
Laboratory Results
09/13/23 09/13/23
02:26 06:17
WBC 8.0
Hgb 7.9 L
Hct 25.0 L
Plt Count 233
Sodium 133 L
Potassium 5.8 H 5.5 H
Chloride 106
Carbon Dioxide 22
BUN 42 H
Creatinine 1.9 H
Glucose 207 H
Calcium 8.5
Vital Signs:
Vital Signs
Temp Pulse Resp BP Pulse Ox
98.9 F 94 18 143/65 99
09/13/23 07:57 09/13/23 08:16 09/13/23 08:11 09/13/23 08:16 09/13/23 08:48
I&O
09/12/23 09/13/23 09/14/23
06:59 06:59 06:59
Output Total 900 / 900
Balance -900 / -900
--- NOTE | 2023-09-13 10:39 | W.PN.GI.CBS2 ---
Today's Communication / Plan
-
Please see assessment and plan for details.
Assessment / Plan
-
1. VDRF: Now more vent dependent, unable to keep cuff deflated for oral intake. Will plan PEG tube tomorrow, electrolytes are improved. Discussed risks and benefits with the family at length who are agreeable.
Subjective
Subjective
Date of Service: September 13, 2023
No new events overnight, patient still vent dependent. She is currently sleeping on the vent, discussed with her at the bedside and patient's daughter on the phone. She had a PEG tube in the past when her initial COVID infection, had no
issues with her PEG tube in the past.
Objective
Data Reviewed
Laboratory Data:
Laboratory Results
09/13/23 06:17
09/13/23 06:17
Laboratory Results
PT 13.4 Sec (11.4-14.6) 08/31/23 14:39
INR 1.02 08/31/23 14:39
APTT 37.5 Sec (23.4-35.0) H 08/31/23 14:39
Phosphorus 3.7 mg/dl (2.5-4.5) 09/13/23 06:17
Magnesium 1.7 mg/dl (1.6-2.3) 09/13/23 06:17
Total Bilirubin 0.5 mg/dl (0.2-1.3) 08/31/23 20:18
AST 14 U/L (14-36) 08/31/23 20:18
ALT < 10 U/L (0-35) 08/31/23 20:18
Alkaline Phosphatase 63 U/L (38-126) 08/31/23 20:18
Vital Signs and I&O:
Vital Signs
Temp Pulse Resp BP Pulse Ox
98.9 F 94 18 143/65 99
09/13/23 07:57 09/13/23 08:16 09/13/23 08:11 09/13/23 08:16 09/13/23 08:48
I&O
09/12/23 09/13/23 09/14/23
06:59 06:59 06:59
Output Total 900 / 900
Balance -900 / -900
Physical Exam
Physical Exam
General: NAD
Abdomen: normal bowel sounds, soft, no tenderness, no masses or bruits, no ascites
[2023-09-13] MEDS: MAGNESIUM SULFATE 50 IV (11:20)
[2023-09-13 12:11] LABS: Glucose - Point of Care 221 mg/dl (70-99)
[2023-09-13] MEDS: NOVOLOG FLEXPEN-LOW RESISTANCE 2 UNITS SC ×2 (12:17→18:08)
--- NOTE | 2023-09-13 15:22 | W.CON.NEPH ---
Consultation
-
Date/Time Consultation Requested: 09/13/2023 10:34AM
Date/Time Consultation Performed: 09/13/2023 3:23PM
Requesting Provider: Duane Roach
Performing Provider: Sofia Burnett
Reason for Consultation: hyperkalemia
Medical History
-
Chief Complaint: Hyperkalemia
History of Present Illness:
62-year-old female past medical history of chronic respiratory failure secondary to COVID in 2020 status post ECMO, history of hypercarbic/hypoxemic respiratory failure in the past, 0.5 L trach collar during the day, and ventilator at nighttime at
baseline, coronary artery disease on ASA, DM type 2 on MOunjaro(started with in 6m), metformin, hypertension on Amlodipine, lisinopril, chr anemia on oral iron, hyperlipidemia on statin, history of C. difficile, ambulatory dysfunction
wheelchair-bound, sacral pressure injury, obesity, spinal stenosis, presented to the emergency room for evaluation of shortness of breath on 08/30.
Of note the patient had a recent admission from 08/16-08/24 with similar sxs. There was concern for mucous plugging at that time. During this hospitalization, we were consulted for CHINTAN on CKD. She was discharged with a Cr of around 2. This time, she
was minimally responsive and EMS was called to her home. She was on 15L and desatted so brought into the ER for further management. Since her admission, she has had repeat bronch which was unremarkable. she also saw ENT in consult due to concern for
air leak around trach. EEG/CT for her JULIUS was all negative. The main thought is that she had inadequate TV at home causing acute on chronic hypercapnic hypoxemic respiratory failure.
Past Medical History
chronic respiratory failure secondary to COVID in 2020 status post ECMO, history of hypercarbic/hypoxemic respiratory failure in the past, 0.5 L trach collar during the day, and ventilator at nighttime at baseline, coronary artery disease,
hypertension, diabetes, anemia, hyperlipidemia, history of C diff, K stone, recurrent UTI
Past Medical History: Other
Past Surgical History: Other (Cardiac (Cardiac catheterization), Cholecystectomy, , Orthopedic (Laminectomy) and Gallbladder stent and removal, Bilateral ureteroscopy with lithotripsy of the right renal stone and clearing of left renal
pelvic fungal ball)
Social History
she lives at home-daughter, son and takes care of her
Tobacco: Non-Smoker
Alcohol: None
Personal:
Employment: Not Employed
Family History
Family History: Not Pertinent
Allergies / Home Medications
Allergy/AdvReac Type Severity Reaction Status Date / Time
clarithromycin Allergy TACHYCARDIA Verified 08/31/23 14:28
�Medication �Instructions �Recorded �Confirmed �Type
acetaminophen 500 mg tablet 1,000 mg (2 x 500 mg) PO Q6HPRN 08/20/20 08/31/23 Rx
(Tylenol Extra Strength) PRN mild pain/ temp>100.5 F
insulin lispro 100 unit/mL 0 sliding scale dose SC ACHS 09/10/20 08/31/23 History
subcutaneous pen (Humalog KwikPen Diabetes
(U-100) Insulin)
ferrous gluconate 324 mg (37.5 mg 324 mg PO BID Supplement 11/27/21 08/31/23 History
iron) tablet
metformin 500 mg tablet,extended 1,000 mg PO BID@0800,1700 Diabetes 11/27/21 08/31/23 History
release 24 hr
metoprolol tartrate 25 mg tablet 50 mg PO BID Blood pressure 01/10/22 08/31/23 History
loratadine 10 mg tablet (Allergy 10 mg PO DAILY PRN allergy symptoms 01/30/22 08/31/23 History
Relief (loratadine))
atorvastatin 20 mg tablet 20 mg PO QPM High cholesterol #30 02/01/22 08/31/23 Rx
tabs
doxazosin 1 mg tablet 1 mg PO HS Blood pressure #30 tabs 02/01/22 08/31/23 Rx
cholecalciferol (vitamin D3) 25 25 mcg PO DAILY Supplement 03/22/22 08/31/23 History
mcg (1,000 unit) tablet
cyanocobalamin (vitamin B-12) 1,000 mcg PO DAILY Supplement 03/22/22 08/31/23 History
1,000 mcg tablet
ipratropium 0.5 mg-albuterol 3 mg 3 ml inhalation R TID 08/17/23 08/31/23 History
(2.5 mg base)/3 mL nebulization Lung/Breathing Issues
soln
pantoprazole 40 mg tablet,delayed 40 mg PO DAILYPRN PRN gi issues 08/17/23 08/31/23 History
release
tirzepatide 7.5 mg/0.5 mL 7.5 mg SC TANG Diabetes 08/17/23 08/31/23 History
subcutaneous pen injector
(Mounjaro)
amlodipine 10 mg tablet (Norvasc) 10 mg PO DAILY Blood Pressure 08/31/23 08/31/23 History
aspirin 81 mg tablet,delayed 81 mg PO DAILY Blood Clot 08/31/23 08/31/23 History
release Prevention/Tx
guaifenesin 600 mg tablet, 600 mg PO Q12 Congestion 08/31/23 08/31/23 History
extended release 12 hr
insulin detemir U-100 100 unit/mL 10 unit SC HS Diabetes 08/31/23 08/31/23 History
(3 mL) subcutaneous pen (Levemir
FlexPen)
sodium bicarbonate 650 mg tablet 650 mg PO BID Kidney Disease 08/31/23 08/31/23 History
Review of Systems
-
Unable to obtain full review of systems at this time due to: Patient Intubation
History Source: Family
All other systems: Negative unless noted
Respiratory: Trouble Breathing
Physical Exam
Vital Signs
Vital Signs
Temp Pulse Resp BP Pulse Ox
99.9 F 90 27 143/65 96
09/13/23 12:53 09/13/23 11:27 09/13/23 11:27 09/13/23 08:16 09/13/23 12:00
Lab Results
WBC 8.0 10^3/uL (4.8-10.8) 09/13/23 06:17
RBC 2.79 10^6/uL (4.20-5.40) L 09/13/23 06:17
Hgb 7.9 g/dL (12.0-16.0) L 09/13/23 06:17
Hct 25.0 % (37.0-47.0) L 09/13/23 06:17
Plt Count 233 10^3/uL (130-400) 09/13/23 06:17
Sodium 133 mmol/L (135-145) L 09/13/23 06:17
Potassium 5.5 mmol/L (3.5-5.1) H 09/13/23 06:17
Chloride 106 mmol/L (98-107) 09/13/23 06:17
Carbon Dioxide 22 mmol/L (22-30) 09/13/23 06:17
BUN 42 mg/dl (7-17) H 09/13/23 06:17
Creatinine 1.9 mg/dL (0.6-1.0) H 09/13/23 06:17
eGFR 29.12 09/13/23 06:17
Glucose 207 mg/dl (70-99) H 09/13/23 06:17
Calcium 8.5 mg/dl (8.4-10.2) 09/13/23 06:17
Phosphorus 3.7 mg/dl (2.5-4.5) 09/13/23 06:17
Vdi-H-Vlroukgegor Pept 37417 pg/ml 09/11/23 04:57
Albumin 2.5 g/dl (3.5-5.0) L 08/31/23 20:18
Physical Exam
General: Other (resting comfortably, chronically ill appearing)
HEENT: Other (eyes closed, not participating in exam)
Respiratory: Other (vent sounds auscultated )
Cardiac: S1/S2, Regular Rate/Rhythm and No Edema
Breast: Deferred by me
Abdomen: Soft, Nontender, Nondistended, Normal Bowel Sounds and No Hepatosplenomegaly
Rectal: Deferred by Provider
Musculoskeletal: No Clubbing, No Cyanosis and No Edema
Skin: No Rash, Warm and Dry
Neuro: Other (sleeping and did not participate in exam)
Hematologic/Lymphatic: No Cervical Lymphadenopathy
Data Reviewed
-
Radiology: Image Personally Visualized and interpreted (opacification of L lung, R pleural effusion)
Labs: Labs Reviewed by me, Discussed with Physician, Discussed with Patient and Discussed with Family
Old Records: Reviewed
Assessment/Plan
-
Assessment:
Hyperkalemia
CKD (Cr baseline 2.1-2.6)
NAGMA
acute on chronic hypercapnic/hypoxemic respiratory failure
Anemia of chronic disease
T2DM
moderate pericardial effusion
HTN
DLDC.diff
Amb dysfunction
h/o kidney stones with stent placement in the past
Hypoalbuminemia
Plan:
- Cr appears to be at baseline
HyperK
- no changes in bowel or bladder habits per at bedside
- obtain KUS to ensure no stones
- could be T4 RTA in the setting of diabetes?
- please ensure tighter control of blood sugars
- agree with lizzette
- lasix one time dose today
- continue sodium bicarb for now
Patient has a very poor prognosis overall.
[2023-09-13] MEDS: LASIX 40 MG IV (16:10)
[2023-09-13 18:17] LABS: Glucose - Point of Care 213 mg/dl (70-99)
[2023-09-13] MEDS: CARDURA 1 MG PO (19:55)
[2023-09-13] MEDS: LIPITOR 20 MG PO (19:55)
[2023-09-13 23:21] LABS: Glucose - Point of Care 195 mg/dl (70-99)
--- NOTE | 2023-09-13 23:40 | W.PN.UPDATE ---
Addendum entered and electronically signed by SATINDER Moncada 09/14/23 05:36:
hgb level dropped down from 7.9 to 6.6 this morning, no sign of bleeding. Vital signs within limit. One unit of RBCs ordered.
Original Note:
Update Note
Progress Note Update
Patient is NPO after midnight for am scheduled procedure. Bs at hs is 195, will hold current scheduled dose of Lantus 15 units and will add one time order of Lantus 7 units.
[2023-09-13] MEDS: LANTUS SC (23:43)
[2023-09-14] VITALS (25 sets, daily range): BP systolic 107–149; BP diastolic 53–69
[2023-09-14] MEDS: MUCOMYST 10% 4 ML INH ×3 (00:09→19:50)
[2023-09-14] MEDS: VENTOLIN NEBULES 2.5 MG INH ×5 (00:09→19:50)
[2023-09-14] MEDS: HEPARIN 5000 UNITS SC (00:38)
[2023-09-14] MEDS: ROBITUSSIN 200 MG TUBE ×4 (00:38→22:30)
[2023-09-14] MEDS: LANTUS 0.07 UNITS SC (00:38)
--- NOTE | 2023-09-14 00:51 | PTCARENOTE ---
assumed care of patient- pt drowsy but arouses to verbal stimuli- on a/c vent- 40%/16/450/5, 95% 02. pt given full bed bath, foam on sacrum changed. left nare dobhoff intact- pt NPO at midnight- notified covering [employer]- lantus decreased to 7 units-
tube feeds placed on hold at midnight per order. q2t. care ongoing.
[2023-09-14] MEDS: LOKELMA 10 GRAM PO (05:12)
[2023-09-14] MEDS: NOVOLOG FLEXPEN-LOW RESISTANCE SC ×4 (05:12→22:54)
[2023-09-14 05:20] LABS: Mean Corp Hgb Conc. 31.7 g/dL (33.0-37.0); Mean Corpuscular Hgb 28.6 pg (27.0-31.0); Mean Platelet Volume 11.5 fL (7.4-10.4); Platelet Count 197 10^3/uL (130-400); Red Blood Cell Count 2.31 10^6/uL (4.20-5.40); Red Cell Dist. Width 15.3 % (11.5-14.5); White Blood Cell Count 6.3 10^3/uL (4.8-10.8)
[2023-09-14 05:21] LABS: Glucose - Point of Care 138 mg/dl (70-99)
[2023-09-14 05:24] LABS: Hemoglobin 6.6 g/dL (12.0-16.0)
[2023-09-14 05:25] LABS: Hematocrit 20.8 % (37.0-47.0)
--- NOTE | 2023-09-14 05:39 | PTCARENOTE ---
pt with critical h/h this AM- 6.6/20.8. notified covering [employer]- no active bleeding and vital stable. new type and screen ordered and 1 unit of PRBC's ordered.
[2023-09-14 05:49] LABS: Blood Urea Nitrogen 45 mg/dl (7-17); Carbon Dioxide 23 mmol/L (22-30); Chloride 104 mmol/L (98-107); Estimated Creatinine Clearance 26 ml/min; Glucose 118 mg/dl (70-99); Magnesium 2.3 mg/dl (1.6-2.3); Phosphorus 4.6 mg/dl (2.5-4.5); Potassium 4.8 mmol/L (3.5-5.1); Sodium 133 mmol/L (135-145); eGFR 27.38
--- NOTE | 2023-09-14 08:38 | W.PN.HOSP.TC ---
Today's Communication/Plan
-
see bold
Assessment / Plan
Assessment / Plan
62-year-old female with chronic tracheostomy uses ventilator at night and trach collar during the day. She was admitted recently and was discharged on 08/25/2023 but she was admitted with acute on chronic hypoxic hypercapnic respiratory failure with
opacification of the left hemithorax. Patient underwent bronchoscopy on 08/18/2023 mucous plugs removed from the left. BAL grew Proteus and completed 7-day course of Unasyn per ID. She also had CHINTAN with CKD stage IV FLAVIO inhibitor was held.
Ultrasound of the kidney showed bilateral renal disease. She comes back with decreased responsiveness.
Gen: NAD, appears chronically ill
Neck: supple.
CV: continues to remain RRR, +S1/S2, no m/r/g.
Resp: continues to remain CTAB anteriorly, no rales, wheezes, or rhonchi.
Abd: continues to remain +BS, soft, NT, ND
Skin: No rashes.
Psych: calm
09/06/23 15:39 Bronch Left Lower Lobe Fungal Culture - Preliminary
Culture in progress.
Positive cultures are reported as soon as detected.
Final report to follow in four to five weeks.
09/05/23 09:11 Blood/Venous Blood Culture - Final
No Growth - Final Report
09/05/23 09:00 Blood/Venous Blood Culture - Final
No Growth - Final Report
09/07/23 06:00 Bronch Left Lower Lobe Acid Fast Bacilli Smear - Preliminary
09/07/23 06:00 Bronch Left Lower Lobe Acid Fast Bacilli Culture - Preliminary
09/06/23 15:39 Bronch Left Lower Lobe Respiratory Culture - Final
Serratia marcescens
Pseudomonas aeruginosa
09/06/23 15:39 Bronch Left Lower Lobe Gram Stain - Final
09/05/23 13:11 Tracheal Aspirate Respiratory Culture - Final
Serratia marcescens
Pseudomonas aeruginosa
09/05/23 13:11 Tracheal Aspirate Gram Stain - Final
08/31/23 14:39 Blood/Venous Blood Culture - Final
Lactobacillus casei
08/31/23 14:39 Blood/Venous Gram Stain - Final
08/31/23 14:39 Blood/Venous Blood Culture - Final
No Growth - Final Report
09/01/23 03:39 Nose MRSA Screen - Final
No Methicillin Resistant Staphylococcus aureus isolated.
08/31/23 14:39 Urine Urine Culture - Final
No Significant Growth
Echo 08/18/23: EF 60 to 65%. Mild concentric LVH. Normal diastolic function. Normal RV size and function. Mild TR. Pulmonary pressure 30 cm of mercury. Small pericardial effusion without hemodynamic compromise
Acute on chronic hypercapnic/hypoxemic respiratory failure:
-With acute respiratory acidosis
-RN ORTHOPEDIC the patient's TV has decreased to an average of less than 200cc nightly (will be rectified with [employer]).
-continues on ATC ACMV
-Wean as tolerated during day time
-VSE when patient can be on a trach collar
-s/p bronchoscopy 09/06/23
-ENT saw in consult and placed #6 Romero (Sergei) on 09/06/2023 as there was concern for air leak
-Respiratory cultures with pseudomonas and Serratia (treated as aspiration PNA)
-chest PT
-appreciate ID, pt completed 5 days cefepime. Patient to start renally dosed Levofloxacin if relapses/develops fever.
-Repeat Bronchoscopy 09/11/23 was unremarkable (no secretions, masses, or mucous plugging)
Acute metabolic encephalopathy on admission (and intermittent since):
-EEG, CT of the head all negative
-likely due to inadequate TV at home causing acute on chronic hypercapnic and hypoxemic respiratory failure with acute respiratory acidosis (on 30/07 at home as per family)
Other problems:
Anemia of chronic disease and Fe deficiency: transfuse 2U pRBCs
One set of BCx with lactobacillus Casei: Likely contaminant
Femoral line removed and Right IJ placed 09/07/23
Hypokalemia and hyperkalemia: resolved s/p rectal Kayexalate, D50W/insulin, Lokelma.
Hypomagnesemia, resolved
Hypocalcemia
Positive LILIAN Screen: OP Rheum Eval
CKD4, Cr at baseline. Sodium bicarb
DM2: cont SSI/accuchecks/Lantus
h/o small to moderate pericardial effusion
Essential hypertension: cont Norvasc/doxazosin.
Hyperlipidemia: Continue statin
Coronary artery disease status post angioplasty: cont ASA/BB
h/o C. diff
COVID pneumonia 2019 with ECMO and ventilator and 3-month hospital stay at [place]
Ambulatory dysfunction, wheelchair-bound since June 2019
Spinal stenosis
Overweight per BMI criteria
Hypoalbuminemia
Nutrition: currently with Dobbhoff tube. For PEG today.
FULL/Heparin
Extremely poor prognosis. Patient is hospice appropriate. I did explain to the patient's daughter, on 09/11/23, that she will likely need LTAC on discharge (I did not mention hospice).
Pt's updated at bedside.
Total time spent on today's encounter was 51 minutes which included time spent in counseling the patient/family regarding diagnosis and treatment plan as listed above, goals of care, and symptom management. Case was discussed with nursing staff,
specialists, and care coordinators/case management. All labs and imaging personally reviewed by me. Remainder the time spent in detailed review of previous records, lab data, imaging, and other medical provider documentation.
Anticipated Discharge: > 48 hours
Subjective/Interval History
-
Date of Service: September 14, 2023
Pt sleeping.
Objective Data
-
Labs:
Laboratory Results
09/14/23
04:59
WBC 6.3
Hgb 6.6 L*
Hct 20.8 L*
Plt Count 197
Sodium 133 L
Potassium 4.8
Chloride 104
Carbon Dioxide 23
BUN 45 H
Creatinine 2.0 H
Glucose 118 H
Calcium 8.0 L
Vital Signs:
Vital Signs
Temp Pulse Resp BP Pulse Ox
98.9 F 84 18 123/54 96
09/14/23 03:51 09/14/23 07:41 09/14/23 07:41 09/14/23 06:00 09/14/23 07:41
[2023-09-14] MEDS: ASPIR LOW (ENTERIC COATED) 81 MG PO (09:47)
[2023-09-14] MEDS: LOPRESSOR 50 MG PO ×2 (09:47→22:30)
[2023-09-14] MEDS: NORVASC 10 MG PO (09:48)
[2023-09-14] MEDS: VITAMIN D3 (cholecalciferol) 25 MCG PO (09:48)
[2023-09-14] MEDS: FEOSOL 325 MG PO (09:48)
[2023-09-14] MEDS: VITAMIN B-12 1000 MCG PO (09:48)
[2023-09-14] MEDS: SODIUM BICARBONATE 650 MG PO ×3 (09:48→22:30)
[2023-09-14] MEDS: HEPARIN SC ×2 (09:49→15:45)
[2023-09-14] MEDS: DESENEX/MITRAZOL/ZEASORB 1 APPLIC TOPICAL ×2 (09:49→22:26)
--- NOTE | 2023-09-14 10:31 | W.PN.PUL3 ---
Today's Communication / Plan
-
Continue mechanical ventilation without change
Will continue to attempt weaning trial with pressure support ventilation and possibly trach collar-have not been successful
PEG tube placement today
Nutritional support
Physical therapy as able
Would start placement
Assessment
-
Mrs Shruti Rockwell is a 62 year old F with history of chronic hypoxic/hypercarbic resp failure s/p trach, post COVID illness, who p/w CC shortness of breath. The patient was recently discharged from 08/25/23 for mucus plugging. Family states that on
day of admission, the patient had decreased responsiveness. She is placed on Trilogy at night/trach collar through the day. She has been sleeping more and less conversive. They have noticed her exhaled TV on Trilogy reporting on avg <200cc
nightly. Her baseline settings are TV 350/PS8/40%/5+. Per medics, the patient was initially on 15 L but desaturated to the 80s. She had to be bagged and her saturations did improve. She is placed on vent in ER and saturations are now improved.
CXR appears similar to prior. We are consulted for eval 09/01/23.
Impression:
Hypoxemic and hypercapnic respiratory failure due to recurrent mucous plug/left lung atelectasis
ABG 08/17/2023--52/59/7 0.24
Ventilator dependent respiratory failure
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
Status post emergent bronchoscopy at the bedside 08/18/2023-mucous plugs removed from the left
Pneumonia - SCx from 09/04 and BAL from 09/05 growing Serratia marcescens + Pseudomonas aeruginosa
Left pleural effusion
CHINTAN (Cr baseline 2.1)
Anemia-normocytic
Hypocalcemia
Hypernatremia
Metabolic and respiratory acidosis
Conditions present prior to admission:
Chronic hypercapnic/hypoxemic respiratory failure/chronic tracheostomy/nocturnal ventilation.
Severe Covid/ECMO 2019.
Diabetes.
Hypertension.
CAD/angioplasty 2020.
Recurrent UTI.
Ambulatory dysfunction/wheelchair-bound.
Chronic anemia.
Overweight.
Renal calculi.
Laparoscopic cholecystectomy 07/2020. Bilateral ureteroscopy with lithotripsy of the right renal stone and clearing of left renal pelvic fungal ball. Laminectomy. .
Plan
No change in respiratory status overnight 09/14/2023.
Remains on mechanical ventilation and unable to wean on trach collar-increased work of breathing and rapid shallow breathing suspect muscle weakness.
Oxygen requirements baseline. 40% FiO2.
Continues to have intermittent secretions.
Today 09/14/2023: Did not tolerate pressure support ventilation due to low tidal volume/increased work of breathing. Unable to tolerate cuff deflation.
Significant muscle weakness, likely critical illness polyneuropathy.
Chronic respiratory failure: Patient on trilogy ventilator at home. This admission settings where not optimal.Data from trilogy 08/16/23 showing usage 9.3 avg hours - MV 5.7 L/min - RR 23 - IPAP/EPAP 12.6/4.9 cm water - Avg VTe 249.1 - leak 32.5
L/min
Settings: Mode S, IPAP 13 EPAP 5
-
Currently depending on mechanical ventilation 10/10: As above unable to wean the last several days.
Unfortunately has not able to wean on trach collar. Now also with tube feedings via Dobbhoff tube.
Continue mechanical ventilation
On ACV at 16-450-5-0.4.
Peak pressure 34, plateau pressure 21.
Aspiration precautions
Routine tracheostomy tube care continues
Continue daily trials of weaning.
As above said that significant muscle weakness with critical illness will neuropathy. Will require placement.
-
Continue secretion clearance interventions: Persistent left white out despite maximal interventions.
CXR on AM of 09/05 shows persistent L-atelectasis.
Dr Epstein performed bronchoscopy on 09/05 for pulmonary toilet purposes and BAL of LLL --> Cx grew Serratia marcescens + Pseudomonas aeruginosa � follow-up sensitivities
During bronch, there was a mucosal abnormality at her LLL at the secondary fran, which appeared white/shiny --> concern for dysplasia but cytology negative for malignancy.
Maximal secretion clearance interventions ongoing:
Sport bed
Continue VEST/mucomyst trach instillations and alb nebs q6h
DNs changed to alb nebs as above and prn
CXR 09-08 with recurrent L atelectasis
Follow up CXR 09-09 still with no change in L atelectasis
Chest x-ray 09/11/2023: Reviewed, showed improved aeration on the left but persistent left sided atelectasis.
Bronchoscopy at the bedside Dr. Treivño 09/11/2023:, Tolerated well per no evidence for large airway secretions bilaterally. No endobronchial masses. Secondary fran left lower lobe patchy leukoplakia. Has been biopsied in the past.
Nonobstructive.
Suspect chest x-ray is related to compressive atelectasis, possible some degree of pleural effusion/recovering pneumonia.
-
Tracheostomy has been exchanged:
Dr. Powell evaluated her on 09/05 --> #[id number] placed on 09/05 (mercy); please make sure that extra tracheostomy is at bedside.
-
Pneumonia: Resolved. Completed antibiotic therapy per
Discontinued antibiotics on 2023: Afebrile. Cultures negative. Fever again on AM of 09/04 --> ABx restarted with cefepime; trach secs culture 09-04 + BAL 09-05 both growing Serratia marcescens + Pseudomonas aeruginosa.
Positive blood culture 08-30 suspect contaminant (Lactob casei)
ID has evaluated the patient, (completed 5 d cefepime 09-08)-infectious disease has signed off.
Continue to monitor off antibiotics.
Swallowing dysfunction:
Recurrent microaspiration also has been contemplated in the past. She has been evaluated by speech therapy multiple times in the past. Diet has been modified.
Primary team ordered video barium swallow--> unfortunately patient is not safe to be placed back onto trach collar at this time.
-
I agree with PEG tube placement today 09/14/2023 per
-
DVT prophylaxis-on heparin
Early mobilization/bedside range of motion-baseline wheelchair-bound and ambulatory dysfunction
Nutritional support via Dobbhoff tube.
DC planning to LTAC if family desires. Dr. Treviño updated her 09/13/2023 need for PEG tube and eventual placement.
Prognosis is very poor long-term. Depending on extent of family desire for aggressive care, hospice may be an option
Continue support as above
Dr. Treviño updated family 09/11/2023 and 09/13/2023.
--------
The patient was last seen in the pulmonary office by Kalpana Mobley NP 06/01/2023 and has an appointment 09/07/2023 at 10:30 AM --> this will be re-scheduled.
Can eval for discharge planning once Trilogy issue resolved and new pneumonia effectively treated.
D/w RT and RN 09-08

Diagnostic Data:
CXR 04-27, reviewed, L basilar atelectasis
CXR 04-19, resolved total L atelectasis, currently back to chronic L basilar atelectasis. New tracheostomy
CXR 04-16, portable, L basilar atelectasis
CXR 04/11/22- . Complete opacification of the left hemithorax, likely on the basis of a large pleural effusion and compressive atelectasis upon the left lung. Mild right basilar pneumonia suspected
Chest x-ray 08/17/2023-near complete opacification throughout the left Jovanni thorax
Echocardiogram 01/10/22-EF 60-65%, no significant valvular disease, small pericardial effusion
Echocardiogram 03/22/22: Normal left ventricular chamber size. Normal left ventricular systolic�function. Normal regional wall motion. Normal left ventricular wall thickness.�Left ventricular ejection fraction is 60-65%. Mild tricuspid
regurgitation.�Small to moderate pericardial effusion without evidence of hemodynamic�compromise.�Compared to the previous echo Dec 2021, there is no significant change.
CT CHEST 04/11/22- �A moderate to large left pleural effusion and complete collapse/atelectasis of the left lung account for the left hemithorax opacification on the prior chest radiograph. Findings are in part likely secondary to mucous plugging
given the presence of opacification of the left mainstem bronchus and left upper and lower lobe bronchi, patchy opacifications right middle and lower lobe suspicious for pneumonia, moderate right pleural effusion and ill-defined sclerotic lesion
T12, osseous metastasis not completely excluded
CT CHEST 03/22/22 - There is no CT evidence for pulmonary embolism. No aortic dissection.There are extremely large bilateral pleural effusions right greater than left and associated bilateral consolidation most prominent in the left lower
lobe.Cardiomegaly. Increased pericardial effusion.
CT chest 08/17/2023-occluded left mainstem bronchus presumably mucous plugs with complete atelectasis left lung moderate size left pleural effusion, small to moderate right pleural effusion
VSE 04/28/22: No aspiration. Laryngeal penetration with cough with thin liquids by cup.
Spirometry 09/09/21-FEV1 790 mL-36%, FVC 790 mL 27%. Some difficulties with maneuver and thus may offer unreliability. Severe restriction.�������
PFT 02/08/22-FVC 1.01/30%, FEV1 0.70/35%, ratio 69%, unable to perform lung volumes and diffusing capacity.
Subjective Data
-
Date of Service:
Date of Service: September 14, 2023
Chief Complaint: Pulmonary Follow Up (Acute respiratory failure/mucous plugging.)
Subjective:
No new complaints or events
For PEG tube placement today
Review of Systems
General: Other (Difficult to obtain due to tracheotomy status)
Objective Data
Data Reviewed
Vital Signs / I&O / Oxygen:
Vital Signs
Temp Pulse Resp BP Pulse Ox
98 F 71 16 113/55 97
09/14/23 09:13 09/14/23 09:13 09/14/23 09:13 09/14/23 09:13 09/14/23 08:00
SaO2 [A/C] 97
SaO2 96
Physical Exam
General: Respiratory Distress (n)
HEENT: Normocephalic, Anicteric and Tracheotomy
Cardiovascular: S1-S2 and Peripheral Edema (+1 lower extremity edema (L>R))
Respiratory: Wheeze (Negative), Crackles (Bilaterally), Rhonchi (Bilaterally (L >R)), Non-Labored Respirations and Other (Mechanical breath sounds heard bilaterally)
GI: Soft, Non Distended, Non Tender and Normal Bowel Sounds
Neurology: No Motor Deficits and Lethargic
Skin: Warm and Dry
Labs/Micro/Reports
Lab Data
09/14/23 04:59
09/14/23 04:59
Microbiology
09/06/23 15:39 Bronch Left Lower Lobe Fungal Culture - Preliminary
Culture in progress.
Positive cultures are reported as soon as detected.
Final report to follow in four to five weeks.
--- NOTE | 2023-09-14 11:57 | W.PN.NEPH.PH ---
Today's Communication / Plan
-
- continue with lokelal
Assessment/Plan
-
Assessment:
Hyperkalemia
CKD (Cr baseline 2.1-2.6)
NAGMA
acute on chronic hypercapnic/hypoxemic respiratory failure
Anemia of chronic disease
T2DM
moderate pericardial effusion
HTN
DLDC.diff
Amb dysfunction
h/o kidney stones with stent placement in the past
Hypoalbuminemia
Plan:
- Cr appears to be at baseline
HyperK
- no changes in bowel or bladder habits per at bedside
- KUS without evidence of retnetion/stones
- could be T4 RTA in the setting of diabetes?
- please ensure tighter control of blood sugars
- agree with lizzette
- monitor K off lasix
- continue sodium bicarb for now
Patient has a very poor prognosis overall.
-
-
Date of Service: September 14, 2023
CC / HPI / ROS
-
Chief Complaint:
hyperkalemia
History of Present Illness:
K elevation to 6.1, now improved
Cr stable
Review of Systems:
trach collar in place
able to follow some commands
Labs
-
Labs:
WBC 6.3 10^3/uL (4.8-10.8) 09/14/23 04:59
RBC 2.31 10^6/uL (4.20-5.40) L 09/14/23 04:59
Hgb 6.6 g/dL (12.0-16.0) L* 09/14/23 04:59
Hct 20.8 % (37.0-47.0) L* 09/14/23 04:59
Plt Count 197 10^3/uL (130-400) 09/14/23 04:59
Sodium 133 mmol/L (135-145) L 09/14/23 04:59
Potassium 4.8 mmol/L (3.5-5.1) 09/14/23 04:59
Chloride 104 mmol/L (98-107) 09/14/23 04:59
Carbon Dioxide 23 mmol/L (22-30) 09/14/23 04:59
BUN 45 mg/dl (7-17) H 09/14/23 04:59
Creatinine 2.0 mg/dL (0.6-1.0) H 09/14/23 04:59
eGFR 27.38 09/14/23 04:59
Glucose 118 mg/dl (70-99) H 09/14/23 04:59
Calcium 8.0 mg/dl (8.4-10.2) L 09/14/23 04:59
Phosphorus 4.6 mg/dl (2.5-4.5) H 09/14/23 04:59
Wuf-H-Ttitfqigryi Pept 30362 pg/ml 09/11/23 04:57
Albumin 2.5 g/dl (3.5-5.0) L 08/31/23 20:18
Physical Exam
-
Vital Signs:
Vital Signs
Temp Pulse Resp BP Pulse Ox
99.6 F 67 16 130/60 99
09/14/23 11:14 09/14/23 11:31 09/14/23 11:31 09/14/23 11:31 09/14/23 11:21
Cardiovascular:: Regular rate and rhythm
Respiratory:: Bilateral: Coarse
Lung Excursion:: Normal
Abdomen:: Nontender and Soft
Bowel Sounds:: Normal
Extremity Edema:: +1: Bilateral:
Bond Catheter: No
[2023-09-14 12:17] LABS: Glucose - Point of Care 114 mg/dl (70-99)
--- NOTE | 2023-09-14 12:42 | PTCARENOTE ---
1 unit PRBC given without difficulty. Tube feeds on hold since MN - am meds administered via dobhoff. SQ Heparin held per MD. Restraints removed- dobhoff placed high up on head. PROM given. Tolerates vent at current settings see flowsheet.
Incontinent of bowel and bladder this am. Stage 2 on buttock- Mepilex replaced. Report given to GI nurses- escorted with RT on vent.
--- NOTE | 2023-09-14 13:04 | OR.RPT ---
Operative Report
Operative Report
PREOPERATIVE DIAGNOSIS: Protein-calorie malnutrition, dysphagia
POSTOPERATIVE DIAGNOSIS: Protein-calorie malnutrition, dysphagia
PROCEDURE PERFORMED: Percutaneous endoscopic gastrostomy (PEG) tube.
DATE OF SURGERY: 09/14/23
ANESTHESIA: Conscious sedation per Anesthesia.
SPECIMEN: None.
COMPLICATIONS: None.
PROCEDURE: After informed consent was obtained, the patient was brought to the endoscopy suite. She was placed in the supine position and was given IV sedation by the Anesthesia team. An EGD was performed from above by Dr. Aguilar. The stomach was
transilluminated and an optimal position for the PEG tube was identified using the single poke method (1:1 palpation). The needle and sheath were attached to a 5cc syringe and then inserted through the abdomen into the stomach under direct
visualization while pulling back on the syringe plunger. No release of suction was noted in the syringe until the tip of the needle was visualized in the gastric lumen. The needle was removed and a guidewire was inserted through the sheath. The
guidewire was grasped from above with a snare by the endoscopist. It was removed completely and the PEG tube was secured to the guidewire.
The guidewire and PEG tube were then pulled through the mouth and esophagus and snug to the abdominal wall. The bumper was placed and noted to be at 2cm at the skin. There was slight oozing blood from the incision, controlled with direct pressure
with plain dry gauze. A complete dictation for the EGD will be done separately by Dr. Aguilar. The patient tolerated the procedure well and was transferred to recovery room in stable condition.
--- NOTE | 2023-09-14 13:48 | PTCARENOTE ---
Escorted back from GI lab with RT- NSR, drowsy easily arousable. Nods no to pain. PEG tube intact- dressing moderate bloody drainage- replaced wit DSD. VSS- will monitor. No change in vent settings oral care completed. VAP precautions
maintained. Will call for next unit PRBC.
[2023-09-14] MEDS: ANCEF 10 IV (14:00)
--- NOTE | 2023-09-14 15:32 | CM ---
Addendum entered by Kari Veronica RN 09/15/23 15:41:
Update from nurse Radford; patient suctioned approx 3x/day. CPAP wean trials in progress today.
Spoke with daughter Martina; provided update that [facility] both interested. [facility] [place] [facility], as her father works at [employer] [facility] [employer] would have
better insurance coverage.
Spoke with Jerome Kerns, Clinical Liaison [facility] (ph [phone]); he provided 3 page [facility] request form. [facility] will submit request today.
Spoke with Isra, [facility] Insurance; the referral for LTAC needs to be sent using their LTAC Precert Form + clinicals ---> faxed to [phone]. A reference # is not provided by phone. CM can check on status of fax or referral at ph [phone].
Plan [facility] once insurance approves.
Addendum entered by Kari Veronica RN 09/14/23 16:21:
Transfusions today for anemia.
Spoke with Jayla, Lead Adms Coordinator, [facility] (office [phone], *cell [phone]); discussed reason for referral, they have no available beds this week but should have a few openings next week.
She will have one of their External Liaisons Jerome or Eliza, contact CM tomorrow after reviewing the referral. She was made aware that the works at [employer].
Plan follow up LTAC referrals.
Original Note:
Patient with Hx trach collar daytime, mechanical ventilation at night, ambulatory dysfunction, w/c bound with Dx Acute on chronic hypercapnic/hypoxemic respiratory failure, Acute metabolic encephalopathy. Continue mechanical ventilation, continue
to attempt weaning trial with pressure support ventilation and possibly trach collar per Pulmonary. PEG placement today. Right IJ placed 6/20. Seen by wound care nurse.
Spoke with daughter Martina; discussed that patient may benefit from LTAC at discharge to continue weaning efforts - she says her parents would agree to this. Her mother went to [facility] in [facility] previously ([facility]) however they would prefer a facility in [place]. As works in [facility] they are interested in [employer] [facility] and [place] at either [place] location.
LTAC referrals placed.
Plan follow up LTAC referrals.
--- NOTE | 2023-09-14 15:46 | PTCARENOTE ---
Dressing at PEG site saturated bloody drainage- removed cleansed and pressure dressing placed. Dr. Aguilar notified - 4pm Heparin to be held.
--- NOTE | 2023-09-14 17:47 | PTCARENOTE ---
PEG site bleeding subsided- dressing remains CDI. Few meds instilled without difficulty and flushed well.
[2023-09-14 17:55] LABS: Glucose - Point of Care 109 mg/dl (70-99)
[2023-09-14] MEDS: CARDURA 1 MG PO (22:30)
[2023-09-14] MEDS: LIPITOR 20 MG PO (22:30)
[2023-09-14 22:46] LABS: Glucose - Point of Care 94 mg/dl (70-99)
[2023-09-14] MEDS: LANTUS SC (22:46)
[2023-09-15] VITALS (12 sets, daily range): BP systolic 136–170; BP diastolic 63–88; BMI 27.0
[2023-09-15] MEDS: HEPARIN SC ×2 (03:26→11:07)
[2023-09-15] MEDS: ROBITUSSIN TUBE (03:26)
[2023-09-15] MEDS: NOVOLOG FLEXPEN-LOW RESISTANCE SC ×4 (06:05→22:44)
[2023-09-15 06:15] LABS: Glucose - Point of Care 73 mg/dl (70-99)
[2023-09-15 06:30] LABS: Hematocrit 29.7 % (37.0-47.0); Mean Corp Hgb Conc. 33.7 g/dL (33.0-37.0); Mean Corpuscular Hgb 29.2 pg (27.0-31.0); Mean Corpuscular Volume 86.6 fL (81.0-99.0); Mean Platelet Volume 11.3 fL (7.4-10.4); Platelet Count 235 10^3/uL (130-400); Red Blood Cell Count 3.43 10^6/uL (4.20-5.40); Red Cell Dist. Width 15.9 % (11.5-14.5); White Blood Cell Count 7.8 10^3/uL (4.8-10.8)
--- NOTE | 2023-09-15 06:38 | PTCARENOTE ---
Pt tolerating vent via trach. Suctioned for blood tinged secretions. Incont of large amount of urine and stools. Barrier cream applied generously to sacrum and connie-anal area. Dressing changed to sacrum. TL IJ lumens patent, dressing intact.
Repositioned throughout the night. Tele showing NSR. Tolerated meds vis PEG. PEG dressing intact, with some shadowing of bloody drainage this morning. Lantus held overnight. Generalized anasarca. Appears to be in no apparent distress. No restraints
overnight. Call giles within reach.
[2023-09-15 06:59] LABS: Blood Urea Nitrogen 46 mg/dl (7-17); Calcium 8.5 mg/dl (8.4-10.2); Carbon Dioxide 23 mmol/L (22-30); Chloride 107 mmol/L (98-107); Estimated Creatinine Clearance 26 ml/min; Glucose 66 mg/dl (70-99); Magnesium 2.3 mg/dl (1.6-2.3); Phosphorus 5.4 mg/dl (2.5-4.5); Potassium 5.2 mmol/L (3.5-5.1); Sodium 135 mmol/L (135-145); eGFR 27.38
[2023-09-15] MEDS: DEXTROSE 50% SYRINGE 12.5 GRAMS IV (07:23)
[2023-09-15] MEDS: VENTOLIN NEBULES 2.5 MG INH ×4 (07:36→20:20)
[2023-09-15] MEDS: MUCOMYST 10% 4 ML INH ×2 (07:36→20:19)
[2023-09-15] MEDS: FEOSOL 325 MG PO (08:59)
[2023-09-15] MEDS: VITAMIN D3 (cholecalciferol) 25 MCG PO (08:59)
[2023-09-15] MEDS: NORVASC 10 MG PO (08:59)
[2023-09-15] MEDS: SODIUM BICARBONATE 650 MG PO ×3 (08:59→21:54)
[2023-09-15] MEDS: ASPIR LOW (ENTERIC COATED) 81 MG PO (08:59)
[2023-09-15] MEDS: LOPRESSOR 50 MG PO ×2 (08:59→21:54)
[2023-09-15] MEDS: ROBITUSSIN 200 MG TUBE ×3 (09:00→21:54)
[2023-09-15] MEDS: DESENEX/MITRAZOL/ZEASORB 1 APPLIC TOPICAL ×2 (09:00→21:55)
[2023-09-15] MEDS: VITAMIN B-12 1000 MCG PO (09:01)
--- NOTE | 2023-09-15 09:49 | W.PN.HOSP.TC ---
Today's Communication/Plan
-
see bold
Assessment / Plan
Assessment / Plan
62-year-old female with chronic tracheostomy uses ventilator at night and trach collar during the day. She was admitted recently and was discharged on 08/25/2023 but she was admitted with acute on chronic hypoxic hypercapnic respiratory failure with
opacification of the left hemithorax. Patient underwent bronchoscopy on 08/18/2023 mucous plugs removed from the left. BAL grew Proteus and completed 7-day course of Unasyn per ID. She also had CHINTAN with CKD stage IV FLAVIO inhibitor was held.
Ultrasound of the kidney showed bilateral renal disease. She comes back with decreased responsiveness.
Gen: NAD, appears chronically ill
Eyes: EOMI/PERRLA/no scleral icterus
Neck: supple.
CV: RRR, +S1/S2, no m/r/g.
Resp: CTAB anteriorly, no rales, wheezes, or rhonchi.
Abd: +BS, soft, NT, ND, gauze with mild amount of blood around PEG site
Skin: No rashes.
Psych: calm
09/06/23 15:39 Bronch Left Lower Lobe Fungal Culture - Preliminary
Culture in progress.
Positive cultures are reported as soon as detected.
Final report to follow in four to five weeks.
09/05/23 09:11 Blood/Venous Blood Culture - Final
No Growth - Final Report
09/05/23 09:00 Blood/Venous Blood Culture - Final
No Growth - Final Report
09/07/23 06:00 Bronch Left Lower Lobe Acid Fast Bacilli Smear - Preliminary
09/07/23 06:00 Bronch Left Lower Lobe Acid Fast Bacilli Culture - Preliminary
09/06/23 15:39 Bronch Left Lower Lobe Respiratory Culture - Final
Serratia marcescens
Pseudomonas aeruginosa
09/06/23 15:39 Bronch Left Lower Lobe Gram Stain - Final
09/05/23 13:11 Tracheal Aspirate Respiratory Culture - Final
Serratia marcescens
Pseudomonas aeruginosa
09/05/23 13:11 Tracheal Aspirate Gram Stain - Final
08/31/23 14:39 Blood/Venous Blood Culture - Final
Lactobacillus casei
08/31/23 14:39 Blood/Venous Gram Stain - Final
08/31/23 14:39 Blood/Venous Blood Culture - Final
No Growth - Final Report
09/01/23 03:39 Nose MRSA Screen - Final
No Methicillin Resistant Staphylococcus aureus isolated.
08/31/23 14:39 Urine Urine Culture - Final
No Significant Growth
Echo 08/18/23: EF 60 to 65%. Mild concentric LVH. Normal diastolic function. Normal RV size and function. Mild TR. Pulmonary pressure 30 cm of mercury. Small pericardial effusion without hemodynamic compromise
EGD (during PEG placement) 09/14/23: Normal esophagus. Scar in the greater curvature of the stomach. Normal examined duodenum. An externally removable PEG placement was successfully completed. No specimens collected.
Acute on chronic hypercapnic/hypoxemic respiratory failure:
-With acute respiratory acidosis on admission
-COMMUN[employer] the patient's TV has decreased to an average of less than 200cc nightly (will be rectified with [employer]).
-continues on ATC ACMV
-Wean as tolerated during day time
-VSE when patient can be on a trach collar
-s/p bronchoscopy 09/06/23
-ENT saw in consult and placed #6 Shiley (Long) on 09/06/2023 as there was concern for air leak
-Respiratory cultures with pseudomonas and Serratia (treated as aspiration PNA)
-chest PT
-appreciate ID, pt completed 5 days cefepime. Patient to start renally dosed Levofloxacin if relapses/develops fever.
-Repeat Bronchoscopy 09/11/23 was unremarkable (no secretions, masses, or mucous plugging)
Acute metabolic encephalopathy on admission (and intermittent since):
-EEG, CT of the head all negative
-likely due to inadequate TV at home causing acute on chronic hypercapnic and hypoxemic respiratory failure with acute respiratory acidosis (on 13/5 at home as per family)
Other problems:
Anemia of chronic disease and Fe deficiency: Hb 10 s/p pRBCs
One set of BCx with lactobacillus Casei: Likely contaminant
Femoral line removed and Right IJ placed 09/07/23
Hypokalemia and hyperkalemia: resolved s/p rectal Kayexalate, D50W/insulin, Lokelma. K now 5.2. Will restart Lokelma.
Hypomagnesemia, resolved
Hypocalcemia
Positive LILIAN Screen: OP Rheum Eval
CKD4, Cr at baseline. Sodium bicarb
DM2: cont SSI/accuchecks/Lantus
h/o small to moderate pericardial effusion
Essential hypertension: cont Norvasc/doxazosin.
Hyperlipidemia: Continue statin
Coronary artery disease status post angioplasty: cont ASA/BB
h/o C. diff
COVID pneumonia 2019 with ECMO and ventilator and 3-month hospital stay at [place]
Ambulatory dysfunction, wheelchair-bound since June 2019
Spinal stenosis
Overweight per BMI criteria
Hypoalbuminemia
Nutrition: s/p PEG 09/14/23. Start TFs
FULL/Heparin
Extremely poor prognosis. Patient is hospice appropriate. I did explain to the patient's daughter, on 09/11/23, that she will need LTAC on discharge (I did not mention hospice). As per CM, pt's [facility] would like [facility] and they won't have a
bed until 09/18/23 at the earliest.
Pt's updated at bedside.
Total time spent on today's encounter was 50 minutes which included time spent in counseling the patient/family regarding diagnosis and treatment plan as listed above, goals of care, and symptom management. Case was discussed with nursing staff,
specialists, and care coordinators/case management. All labs and imaging personally reviewed by me. Remainder the time spent in detailed review of previous records, lab data, imaging, and other medical provider documentation.
Anticipated Discharge: > 48 hours
Subjective/Interval History
-
Date of Service: September 15, 2023
No new events.
Objective Data
-
Labs:
Laboratory Results
09/15/23
06:12
WBC 7.8
Hgb 10.0 L D
Hct 29.7 L
Plt Count 235
Sodium 135
Potassium 5.2 H
Chloride 107
Carbon Dioxide 23
BUN 46 H
Creatinine 2.0 H
Glucose 66 L
Calcium 8.5
Vital Signs:
Vital Signs
Temp Pulse Resp BP Pulse Ox
98.1 F 79 23 143/63 95
09/15/23 07:35 09/15/23 08:59 09/15/23 06:00 09/15/23 08:59 09/15/23 06:00
I&O
09/14/23 09/15/23 09/16/23
06:59 06:59 06:59
Intake Total 530 / 530
Balance 530 / 530
--- NOTE | 2023-09-15 10:34 | W.PN.PUL3 ---
Today's Communication / Plan
-
Agree with starting tube feeds via feeding tube
Follow hemoglobin
Maintain volume-cycled ventilation for now
Consider CPAP wean over the weekend versus trach collar trials
Disposition efforts
Assessment
-
Mrs Shruti Rockwell is a 62 year old F with history of chronic hypoxic/hypercarbic resp failure s/p trach, post COVID illness, who p/w CC shortness of breath. The patient was recently discharged from 08/25/23 for mucus plugging. Family states that on
day of admission, the patient had decreased responsiveness. She is placed on Trilogy at night/trach collar through the day. She has been sleeping more and less conversive. They have noticed her exhaled TV on Trilogy reporting on avg <200cc
nightly. Her baseline settings are TV 350/PS8/40%/5+. Per medics, the patient was initially on 15 L but desaturated to the 80s. She had to be bagged and her saturations did improve. She is placed on vent in ER and saturations are now improved.
CXR appears similar to prior. We are consulted for eval 09/01/23.
Hypoxemic and hypercapnic respiratory failure due to recurrent mucous plug/left lung atelectasis
ABG 08/17/2023--52/59/7 0.24
Ventilator dependent respiratory failure
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
Status post emergent bronchoscopy at the bedside 08/18/2023-mucous plugs removed from the left
Pneumonia - SCx from 09/04 and BAL from 09/05 growing Serratia marcescens + Pseudomonas aeruginosa
Left pleural effusion
CHINTAN (Cr baseline 2.1)
Anemia-normocytic
Hypocalcemia
Hypernatremia
Metabolic and respiratory acidosis
Conditions present prior to admission:
Chronic hypercapnic/hypoxemic respiratory failure/chronic tracheostomy/nocturnal ventilation.
Severe Covid/ECMO 2019.
Diabetes.
Hypertension.
CAD/angioplasty 2020.
Recurrent UTI.
Ambulatory dysfunction/wheelchair-bound.
Chronic anemia.
Overweight.
Renal calculi.
Laparoscopic cholecystectomy 07/2020. Bilateral ureteroscopy with lithotripsy of the right renal stone and clearing of left renal pelvic fungal ball. Laminectomy. .
Plan/recommendations
No change in respiratory status overnight
No weaning 09/13 due to procedure, has been maintained on assist-control, volume-cycled ventilation
Rapid shallow breathing with use of accessory muscles during trach collar attempts
Oxygenation remained stable
Continues to have intermittent secretions.
Suspect critical illness polyneuropathy
Chronic respiratory failure: Patient on trilog ventilator at home. This admission settings where not optimal.Data from trilogy 08/16/23 showing usage 9.3 avg hours - MV 5.7 L/min - RR 23 - IPAP/EPAP 12.6/4.9 cm water - Avg VTe 249.1 - leak 32.5
L/min
Settings: Mode S, IPAP 13 EPAP 5
Currently depending on mechanical ventilation 10/10: As above unable to wean the last several days.
Unfortunately has not able to wean on trach collar. Tube feeds started today via PEG tube
Continue mechanical ventilation
On ACV at 16-450-5-0.4.
Plateau pressure 25
Aspiration precautions
Routine tracheostomy tube care continues
Continue daily trials of weaning, will consider reattempting wean over the weekend.
As above said that significant muscle weakness with critical illness will neuropathy. Will require placement.
Continue secretion clearance interventions: Persistent left white out despite maximal interventions.
CXR on AM of 09/05 shows persistent L-atelectasis.
Dr Epstein performed bronchoscopy on 09/05 for pulmonary toilet purposes and BAL of LLL --> Cx grew Serratia marcescens + Pseudomonas aeruginosa � follow-up sensitivities
During bronch, there was a mucosal abnormality at her LLL at the secondary fran, which appeared white/shiny --> concern for dysplasia but cytology negative for malignancy.
Maximal secretion clearance interventions ongoing:
Sport bed
Continue VEST/mucomyst trach instillations and alb nebs q6h
DNs changed to alb nebs as above and prn
Chest x-ray 09/11/2023: Reviewed, showed improved aeration on the left but persistent left sided atelectasis.
Repeat chest x-ray 09/17
Bronchoscopy at the bedside Dr. Treviño 09/11/2023:, Tolerated well per no evidence for large airway secretions bilaterally. No endobronchial masses. Secondary fran left lower lobe patchy leukoplakia. Has been biopsied in the past.
Nonobstructive.
Suspect chest x-ray is related to compressive atelectasis, possible some degree of pleural effusion/recovering pneumonia.
Tracheostomy has been exchanged:
Dr. Powell evaluated her on 09/05 --> #[id number] placed on 09/05 (mercy); please make sure that extra tracheostomy is at bedside.
-
Pneumonia: Resolved. Completed antibiotic therapy
Discontinued antibiotics on 2023: Afebrile. Cultures negative. Fever again on AM of 09/04 --> ABx restarted with cefepime; trach secs culture 09-04 + BAL 09-05 both growing Serratia marcescens + Pseudomonas aeruginosa.
Positive blood culture 08-30 suspect contaminant (Lactob casei)
ID has evaluated the patient, (completed 5 d cefepime 09-08)-infectious disease has signed off.
Continue to monitor off antibiotics.
Swallowing dysfunction:
Recurrent microaspiration also has been contemplated in the past. She has been evaluated by speech therapy multiple times in the past. Diet has been modified.
Primary team ordered video barium swallow--> unfortunately patient is not safe to be placed back onto trach collar at this time.
Will consider transition to trach collar over the weekend versus CPAP wean
-
DVT prophylaxis-on heparin
Early mobilization/bedside range of motion-baseline wheelchair-bound and ambulatory dysfunction
Nutritional support via Dobbhoff tube.
DC planning to LTAC if family desires. Dr. Treviño updated her 09/13/2023 need for PEG tube and eventual placement.
Prognosis is very poor long-term. Depending on extent of family desire for aggressive care, hospice may be an option
Continue support as above
--------
The patient was last seen in the pulmonary office by Kalpana Mobley NP 06/01/2023 and has an appointment 09/07/2023 at 10:30 AM --> this will be re-scheduled.
Can eval for discharge planning once Trilogy issue resolved and new pneumonia effectively treated.
Disposition efforts

Diagnostic Data:
CXR 04-27, reviewed, L basilar atelectasis
CXR 04-19, resolved total L atelectasis, currently back to chronic L basilar atelectasis. New tracheostomy
CXR 04-16, portable, L basilar atelectasis
CXR 04/11/22- 1. Complete opacification of the left hemithorax, likely on the basis of a large pleural effusion and compressive atelectasis upon the left lung. Mild right basilar pneumonia suspected
Chest x-ray 08/17/2023-near complete opacification throughout the left Jovanni thorax
Echocardiogram 01/10/22-EF 60-65%, no significant valvular disease, small pericardial effusion
Echocardiogram 03/22/22: Normal left ventricular chamber size. Normal left ventricular systolic�function. Normal regional wall motion. Normal left ventricular wall thickness.�Left ventricular ejection fraction is 60-65%. Mild tricuspid
regurgitation.�Small to moderate pericardial effusion without evidence of hemodynamic�compromise.�Compared to the previous echo Dec 2021, there is no significant change.
CT CHEST 04/11/22- �A moderate to large left pleural effusion and complete collapse/atelectasis of the left lung account for the left hemithorax opacification on the prior chest radiograph. Findings are in part likely secondary to mucous plugging
given the presence of opacification of the left mainstem bronchus and left upper and lower lobe bronchi, patchy opacifications right middle and lower lobe suspicious for pneumonia, moderate right pleural effusion and ill-defined sclerotic lesion
T12, osseous metastasis not completely excluded
CT CHEST 03/22/22 - There is no CT evidence for pulmonary embolism. No aortic dissection.There are extremely large bilateral pleural effusions right greater than left and associated bilateral consolidation most prominent in the left lower
lobe.Cardiomegaly. Increased pericardial effusion.
CT chest 08/17/2023-occluded left mainstem bronchus presumably mucous plugs with complete atelectasis left lung moderate size left pleural effusion, small to moderate right pleural effusion
VSE 04/28/22: No aspiration. Laryngeal penetration with cough with thin liquids by cup.
Spirometry 09/09/21-FEV1 790 mL-36%, FVC 790 mL 27%. Some difficulties with maneuver and thus may offer unreliability. Severe restriction.�������
PFT 02/08/22-FVC 1.01/30%, FEV1 0.70/35%, ratio 69%, unable to perform lung volumes and diffusing capacity.
Subjective Data
-
Date of Service:
Date of Service: September 15, 2023
Chief Complaint: Pulmonary Follow Up (Acute respiratory failure/mucous plugging.)
Subjective:
Patient remains on volume-cycled ventilation, assist control. She was not weaned 09/13 due to GI procedure. Appears to be comfortable. She is oozing mildly around PEG tube site, dressing in place
Objective Data
Data Reviewed
Vital Signs / I&O / Oxygen:
Vital Signs
Temp Pulse Resp BP Pulse Ox
98.1 F 79 23 143/63 95
09/15/23 07:35 09/15/23 08:59 09/15/23 06:00 09/15/23 08:59 09/15/23 06:00
Intake and Output
09/14/23 09/15/23 09/16/23
06:59 06:59 06:59
Intake Total 530 / 530
Balance 530 / 530
SaO2 [A/C] 97
SaO2 95
Physical Exam
General: Comfortable
HEENT: Normocephalic, Anicteric and Tracheotomy
Cardiovascular: S1-S2, Regular Rhythm, Murmur (n), Rub (n) and Peripheral Edema (Trace edema)
Respiratory: Wheeze (Negative), Crackles (Bilaterally), Rhonchi (Bilaterally (L >R)), Non-Labored Respirations, Other (Mechanical breath sounds heard bilaterally) and Other (Tracheotomy)
GI: Soft, Non Distended, Non Tender, Normal Bowel Sounds and Other (PEG tube with dressing)
Neurology: Awake (Eyes open) and No Motor Deficits
Skin: Cyanosis (n), Jaundice (n) and Rash (n)
Labs/Micro/Reports
Lab Data
09/15/23 06:12
09/15/23 06:12
--- NOTE | 2023-09-15 10:47 | PTCARENOTE ---
Pt AAO forgetful withdrawn. On vent as ordered. Peg tube site bleeding holding Heparin for now. Pt changed for urine and BM .
[2023-09-15] MEDS: LOKELMA 10 GRAM PO (11:07)
--- NOTE | 2023-09-15 11:12 | W.PN.NEPH.PH ---
Today's Communication / Plan
-
lokelma
Assessment/Plan
-
Assessment:
Hyperkalemia
CKD (Cr baseline 2.1-2.6)
NAGMA
acute on chronic hypercapnic/hypoxemic respiratory failure
Anemia of chronic disease
T2DM
moderate pericardial effusion
HTN
DLDC.diff
Amb dysfunction
h/o kidney stones with stent placement in the past
Hypoalbuminemia
Plan:
lasix 20mg daily
lokelma 10gm daily, may need it on dc
follow BMP
d/w son
-
-
Date of Service: September 15, 2023
CC / HPI / ROS
-
Chief Complaint:
hyperkalemia
History of Present Illness:
K high at 5.2
Cr stable 2.0
hgb up to 10
Review of Systems:
trach collar in place
able to follow some commands
Labs
-
Labs:
WBC 7.8 10^3/uL (4.8-10.8) 09/15/23 06:12
RBC 3.43 10^6/uL (4.20-5.40) L 09/15/23 06:12
Hgb 10.0 g/dL (12.0-16.0) L D 09/15/23 06:12
Hct 29.7 % (37.0-47.0) L 09/15/23 06:12
Plt Count 235 10^3/uL (130-400) 09/15/23 06:12
Sodium 135 mmol/L (135-145) 09/15/23 06:12
Potassium 5.2 mmol/L (3.5-5.1) H 09/15/23 06:12
Chloride 107 mmol/L (98-107) 09/15/23 06:12
Carbon Dioxide 23 mmol/L (22-30) 09/15/23 06:12
BUN 46 mg/dl (7-17) H 09/15/23 06:12
Creatinine 2.0 mg/dL (0.6-1.0) H 09/15/23 06:12
eGFR 27.38 09/15/23 06:12
Glucose 66 mg/dl (70-99) L 09/15/23 06:12
Calcium 8.5 mg/dl (8.4-10.2) 09/15/23 06:12
Phosphorus 5.4 mg/dl (2.5-4.5) H 09/15/23 06:12
Ayh-T-Qntvucfcauo Pept 53619 pg/ml 09/11/23 04:57
Albumin 2.5 g/dl (3.5-5.0) L 08/31/23 20:18
Physical Exam
-
Vital Signs:
Vital Signs
Temp Pulse Resp BP Pulse Ox
98.1 F 79 16 143/63 98
09/15/23 07:35 09/15/23 08:59 09/15/23 07:35 09/15/23 08:59 09/15/23 08:00
Cardiovascular:: Regular rate and rhythm
Respiratory:: Bilateral: Coarse
Lung Excursion:: Normal
Abdomen:: Nontender and Soft
Bowel Sounds:: Normal
Extremity Edema:: +1: Bilateral:
--- NOTE | 2023-09-15 12:32 | PTCARENOTE ---
Spoke with pt re employee splashing her eyes with pt bloody secretions, and that our policy is to ronel Hep B, c and HIV studies that can be done on blood in lab. ok with that.
[2023-09-15] MEDS: LASIX 20 MG PO (13:04)
[2023-09-15] MEDS: POLYSPORIN OINTMENT 1 APPLIC TOPICAL (13:05)
[2023-09-15 13:19] LABS: Glucose - Point of Care 90 mg/dl (70-99)
[2023-09-15 14:17] LABS: HIV Combo Negative (Negative)
[2023-09-15 14:26] LABS: Hepatitis B Core Ab, Total Negative (Negative); Hepatitis B Surface Antibody Positive; Hepatitis C Antibody Negative (Negative)
--- NOTE | 2023-09-15 15:08 | W.PN.GI.CBS2 ---
Addendum entered and electronically signed by Jose Davenport MD 09/15/23 15:43:
I saw and examined the patient.
The PA's note was reviewed and I agree with the note.
Comment:
ok for TF, s/o.
Original Note:
Today's Communication / Plan
-
ok for TF
GI signing off
Assessment / Plan
-
1. VDRF: Now more vent dependent, unable to keep cuff deflated for oral intake.
2. S/P PEG tube placement 20 F
Plan:
-Ok to start TF as per Nutrition recommendation
-Continue local care to PEG site
-Will will sign off. Please call back if we can be of further assistance.
Subjective
Subjective
Date of Service: September 15, 2023
Patient denies any pain at PEG tube site. Heparin was DC as patient had bleeding from sites of punctures. Hgb was 6.6 yesterday and she was transfused and Hgb 10.0 today. PEG site evaluated and dressing removed. Area was cleaned and no signs of
active bleeding noted. Clean split gauze applied and ok to use for tube feeds. Discussed with RN, patient and .
Objective
Data Reviewed
Laboratory Data:
Laboratory Results
09/15/23 06:12
09/15/23 06:12
Laboratory Results
PT 13.4 Sec (11.4-14.6) 08/31/23 14:39
INR 1.02 08/31/23 14:39
APTT 37.5 Sec (23.4-35.0) H 08/31/23 14:39
Phosphorus 5.4 mg/dl (2.5-4.5) H 09/15/23 06:12
Magnesium 2.3 mg/dl (1.6-2.3) 09/15/23 06:12
Total Bilirubin 0.5 mg/dl (0.2-1.3) 08/31/23 20:18
AST 14 U/L (14-36) 08/31/23 20:18
ALT < 10 U/L (0-35) 08/31/23 20:18
Alkaline Phosphatase 63 U/L (38-126) 08/31/23 20:18
Vital Signs and I&O:
Vital Signs
Temp Pulse Resp BP Pulse Ox
98.1 F 86 16 166/75 97
09/15/23 11:35 09/15/23 13:04 09/15/23 11:34 09/15/23 13:04 09/15/23 12:00
I&O
09/14/23 09/15/23 09/16/23
06:59 06:59 06:59
Intake Total 530 / 530
Balance 530 / 530
Physical Exam
Physical Exam
Cardiology: Normal Sinus Rhythm
Pulmonary: Clear
GI: Soft, Non Distended, Non Tender, Normal Bowel Sounds and Other (PEG site bandage with blood, area cleaned, not signs of active bleeding, Bumper at skin 2 cm, area cleaned, new split gauze applied)
[2023-09-15 15:16] LABS: Hepatitis B Surface Antigen Negative (Negative)
--- NOTE | 2023-09-15 16:01 | CM ---
Patient with Hx trach collar daytime, mechanical ventilation at night, ambulatory dysfunction, w/c bound with Dx Acute on chronic hypercapnic/hypoxemic respiratory failure, Acute metabolic encephalopathy. Tube feeds begun via PEG.
Update from nurse Prabhakar; patient suctioned approx 3x/day. CPAP wean trials in progress today.
Spoke with daughter Martina; provided update that [facility] are both interested. She highly prefers [facility] which is a [facility], as her father works at [employer] and [employer] would have
better insurance coverage.
Spoke with Jerome Kerns, Clinical Liaison [facility] (ph [phone]); he provided 3 page [facility] request form. [facility] will submit request today.
Spoke with Isra [facility] Insurance; the referral for LTAC needs to be sent using their LTAC Precert Form + clinicals ---> faxed to [phone]. A reference # is not provided by phone. CM can check on status of fax or referral at ph [phone].
Plan [facility] once insurance approves.
[2023-09-15 18:20] LABS: Glucose - Point of Care 92 mg/dl (70-99)
[2023-09-15] MEDS: CARDURA 1 MG PO (21:54)
[2023-09-15] MEDS: LIPITOR 20 MG PO (21:54)
[2023-09-15] MEDS: LANTUS SC (21:55)
[2023-09-15 22:10] LABS: Glucose - Point of Care 112 mg/dl (70-99)
[2023-09-16] VITALS (12 sets, daily range): BP systolic 134–168; BP diastolic 58–79; BMI 26.4
[2023-09-16] MEDS: ROBITUSSIN 200 MG TUBE ×4 (03:46→20:42)
[2023-09-16 04:12] LABS: Hematocrit 30.2 % (37.0-47.0); Hemoglobin 9.8 g/dL (12.0-16.0); Mean Corp Hgb Conc. 32.5 g/dL (33.0-37.0); Mean Corpuscular Hgb 28.8 pg (27.0-31.0); Mean Corpuscular Volume 88.8 fL (81.0-99.0); Mean Platelet Volume 11.6 fL (7.4-10.4); Platelet Count 225 10^3/uL (130-400); Red Cell Dist. Width 15.6 % (11.5-14.5); White Blood Cell Count 11.9 10^3/uL (4.8-10.8)
[2023-09-16 04:38] LABS: Blood Urea Nitrogen 44 mg/dl (7-17); Calcium 8.4 mg/dl (8.4-10.2); Carbon Dioxide 23 mmol/L (22-30); Chloride 107 mmol/L (98-107); Estimated Creatinine Clearance 26 ml/min; Glucose 109 mg/dl (70-99); Magnesium 2.1 mg/dl (1.6-2.3); Phosphorus 5.7 mg/dl (2.5-4.5); Potassium 4.2 mmol/L (3.5-5.1); Sodium 137 mmol/L (135-145); eGFR 27.38
--- NOTE | 2023-09-16 05:02 | PTCARENOTE ---
Forgetful... pt asked where her is; re-oriented pt to place, time and situation. follows simple commands. Patient favors left side. Positioned on right side more, pt coughing occasionally and able to get up sputum. deep suctioned x1-2.
slightly blood tinged sputum. Tolerating Vent AC 16, TV 450, FiO2 40%, PEEP 5. Tele showing NSR, ST when turning. Incont large amount of urine. small BM. Barrier cream applied generously to bottom d/t excoriated. Powder to groin/MASD area.
Tolerating Osmolite 1.2 TF w/ residuals <10mL. PEG site continues to have pink/blood drainage, dressing changed x3. SCDs on, heels floated. PIV flushed, patent. RIJ gauze dressing intact with small old bloody drainage. Call giles within reach.
[2023-09-16 06:09] LABS: Glucose - Point of Care 156 mg/dl (70-99)
[2023-09-16] MEDS: NOVOLOG FLEXPEN-LOW RESISTANCE 1 UNITS SC ×2 (06:45→22:50)
[2023-09-16] MEDS: VENTOLIN NEBULES 2.5 MG INH ×2 (07:50→20:28)
[2023-09-16] MEDS: MUCOMYST 10% 4 ML INH ×2 (07:50→20:28)
--- NOTE | 2023-09-16 08:42 | RESPNOTE ---
Addendum entered by Edouard Reyes, RT 09/16/23 09:39:
Prior to wean patient was on A/C 450/16/40% +5, plateau pressure was 22 cmH2O.
Original Note:
Patient placed on PSV 15/5 cmH2O at 0810. RR 29 Tv 325 SpO2 95%. CPT done via sport bed and cough assist done. Patient tolerated therapies well. Suctioned patient for small amount thin light hansen secretions. Trach site clean and secure chest with
equal bilateral excursion.
[2023-09-16] MEDS: POLYSPORIN OINTMENT 1 APPLIC TOPICAL (09:04)
[2023-09-16] MEDS: PROTONIX 40 MG PO (09:05)
[2023-09-16] MEDS: LOPRESSOR 50 MG PO ×2 (09:05→20:41)
[2023-09-16] MEDS: FEOSOL 325 MG PO (09:05)
[2023-09-16] MEDS: ASPIR LOW (ENTERIC COATED) 81 MG PO (09:05)
[2023-09-16] MEDS: LASIX 20 MG PO (09:06)
[2023-09-16] MEDS: VITAMIN B-12 1000 MCG PO (09:06)
[2023-09-16] MEDS: VITAMIN D3 (cholecalciferol) 25 MCG PO (09:06)
[2023-09-16] MEDS: NORVASC 10 MG PO (09:06)
[2023-09-16] MEDS: SODIUM BICARBONATE 650 MG PO ×3 (09:06→22:50)
--- NOTE | 2023-09-16 10:13 | W.PN.HOSP.TC ---
Today's Communication/Plan
-
see bold
Assessment / Plan
Assessment / Plan
62-year-old female with chronic tracheostomy uses ventilator at night and trach collar during the day. She was admitted recently and was discharged on 08/25/2023 but she was admitted with acute on chronic hypoxic hypercapnic respiratory failure with
opacification of the left hemithorax. Patient underwent bronchoscopy on 08/18/2023 mucous plugs removed from the left. BAL grew Proteus and completed 7-day course of Unasyn per ID. She also had CHINTAN with CKD stage IV FLAVIO inhibitor was held.
Ultrasound of the kidney showed bilateral renal disease. She comes back with decreased responsiveness.
Gen: Remains NAD, appears chronically ill
Eyes: EOMI/PERRLA/no scleral icterus
Neck: supple.
CV: Remains RRR, +S1/S2, no m/r/g.
Resp: Remains CTAB anteriorly, no rales, wheezes, or rhonchi.
Abd: +BS, soft, NT, ND
Skin: No rashes.
Psych: calm
09/06/23 15:39 Bronch Left Lower Lobe Fungal Culture - Preliminary
Culture in progress.
Positive cultures are reported as soon as detected.
Final report to follow in four to five weeks.
09/05/23 09:11 Blood/Venous Blood Culture - Final
No Growth - Final Report
09/05/23 09:00 Blood/Venous Blood Culture - Final
No Growth - Final Report
09/07/23 06:00 Bronch Left Lower Lobe Acid Fast Bacilli Smear - Preliminary
09/07/23 06:00 Bronch Left Lower Lobe Acid Fast Bacilli Culture - Preliminary
09/06/23 15:39 Bronch Left Lower Lobe Respiratory Culture - Final
Serratia marcescens
Pseudomonas aeruginosa
09/06/23 15:39 Bronch Left Lower Lobe Gram Stain - Final
09/05/23 13:11 Tracheal Aspirate Respiratory Culture - Final
Serratia marcescens
Pseudomonas aeruginosa
09/05/23 13:11 Tracheal Aspirate Gram Stain - Final
08/31/23 14:39 Blood/Venous Blood Culture - Final
Lactobacillus casei
08/31/23 14:39 Blood/Venous Gram Stain - Final
08/31/23 14:39 Blood/Venous Blood Culture - Final
No Growth - Final Report
09/01/23 03:39 Nose MRSA Screen - Final
No Methicillin Resistant Staphylococcus aureus isolated.
08/31/23 14:39 Urine Urine Culture - Final
No Significant Growth
Echo 08/18/23: EF 60 to 65%. Mild concentric LVH. Normal diastolic function. Normal RV size and function. Mild TR. Pulmonary pressure 30 cm of mercury. Small pericardial effusion without hemodynamic compromise
EGD (during PEG placement) 09/14/23: Normal esophagus. Scar in the greater curvature of the stomach. Normal examined duodenum. An externally removable PEG placement was successfully completed. No specimens collected.
Acute on chronic hypercapnic/hypoxemic respiratory failure:
-With acute respiratory acidosis on admission
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
-continues on ATC ACMV
-Wean as tolerated during day time
-VSE when patient can be on a trach collar
-s/p bronchoscopy 09/06/23
-ENT saw in consult and placed #6 Shiley (Long) on 09/06/2023 as there was concern for air leak
-Respiratory cultures with pseudomonas and Serratia (treated as aspiration PNA)
-chest PT
-appreciate ID, pt completed 5 days cefepime. Patient to start renally dosed Levofloxacin if relapses/develops fever.
-Repeat Bronchoscopy 09/11/23 was unremarkable (no secretions, masses, or mucous plugging)
Acute metabolic encephalopathy on admission (and intermittent since):
-EEG, CT of the head all negative
-likely due to inadequate TV at home causing acute on chronic hypercapnic and hypoxemic respiratory failure with acute respiratory acidosis (on 30/07 at home as per family)
Other problems:
Anemia of chronic disease and Fe deficiency: Hb 10 s/p pRBCs
One set of BCx with lactobacillus Casei: Likely contaminant
Femoral line removed and Right IJ placed 09/07/23
Hypokalemia and hyperkalemia: resolved s/p rectal Kayexalate, D50W/insulin, Lokelma. K now 5.2. cont Lokelma M/W/F.
Hypomagnesemia, resolved
Hypocalcemia
Positive LILIAN Screen: OP Rheum Eval
CKD4, Cr at baseline. Sodium bicarb
DM2: cont SSI/accuchecks/Lantus
h/o small to moderate pericardial effusion
Essential hypertension: cont Norvasc/doxazosin.
Hyperlipidemia: Continue statin
Coronary artery disease status post angioplasty: cont ASA/BB
h/o C. diff
COVID pneumonia 2019 with ECMO and ventilator and 3-month hospital stay at [facility]
Ambulatory dysfunction, wheelchair-bound since June 2019
Spinal stenosis
Overweight per BMI criteria
Hypoalbuminemia
Nutrition: s/p PEG 09/14/23. TFs started, now 60cc/hr.
FULL/Heparin
Extremely poor prognosis. Patient is hospice appropriate. I did explain to the patient's daughter, on 09/11/23, that she will need LTAC on discharge (I did not mention hospice). As per CM, pt's family would like [facility] and they won't have a
bed until 09/18/23 at the earliest.
Pt's and daughter updated at bedside.
Anticipated Discharge: 24 - 48 hours
Subjective/Interval History
-
Date of Service: September 16, 2023
No new complaints.
Objective Data
-
Labs:
Laboratory Results
09/16/23
04:00
WBC 11.9 H
Hgb 9.8 L
Hct 30.2 L
Plt Count 225
Sodium 137
Potassium 4.2
Chloride 107
Carbon Dioxide 23
BUN 44 H
Creatinine 2.0 H
Glucose 109 H
Calcium 8.4
Vital Signs:
Vital Signs
Temp Pulse Resp BP Pulse Ox
98.5 F 101 22 149/89 96
09/16/23 07:38 09/16/23 09:05 09/16/23 07:51 09/16/23 09:05 09/16/23 08:00
I&O
09/15/23 09/16/23 09/17/23
06:59 06:59 06:59
Intake Total 530 / 530
Balance 530 / 530
--- NOTE | 2023-09-16 10:25 | W.PN.NEPH.PH ---
Today's Communication / Plan
-
follow BMP
Assessment/Plan
-
Assessment:
Hyperkalemia
CKD (Cr baseline 2.1-2.6)
NAGMA
acute on chronic hypercapnic/hypoxemic respiratory failure
Anemia of chronic disease
T2DM
moderate pericardial effusion
HTN
DLDC.diff
Amb dysfunction
h/o kidney stones with stent placement in the past
Hypoalbuminemia
Plan:
lasix 20mg daily
lokelma 10gm MWF
follow BMP
continue FWF 25
d/w son
-
-
Date of Service: September 16, 2023
CC / HPI / ROS
-
Chief Complaint:
hyperkalemia
History of Present Illness:
K down to 4.2 with lokelma
Cr stable 2.0
hgb stable 9.8
Review of Systems:
trach collar in place
TF 60
Labs
-
Labs:
WBC 11.9 10^3/uL (4.8-10.8) H 09/16/23 04:00
RBC 3.40 10^6/uL (4.20-5.40) L 09/16/23 04:00
Hgb 9.8 g/dL (12.0-16.0) L 09/16/23 04:00
Hct 30.2 % (37.0-47.0) L 09/16/23 04:00
Plt Count 225 10^3/uL (130-400) 09/16/23 04:00
Sodium 137 mmol/L (135-145) 09/16/23 04:00
Potassium 4.2 mmol/L (3.5-5.1) 09/16/23 04:00
Chloride 107 mmol/L (98-107) 09/16/23 04:00
Carbon Dioxide 23 mmol/L (22-30) 09/16/23 04:00
BUN 44 mg/dl (7-17) H 09/16/23 04:00
Creatinine 2.0 mg/dL (0.6-1.0) H 09/16/23 04:00
eGFR 27.38 09/16/23 04:00
Glucose 109 mg/dl (70-99) H 09/16/23 04:00
Calcium 8.4 mg/dl (8.4-10.2) 09/16/23 04:00
Phosphorus 5.7 mg/dl (2.5-4.5) H 09/16/23 04:00
Ejx-R-Djgbzsharhp Pept 22831 pg/ml 09/11/23 04:57
Albumin 2.5 g/dl (3.5-5.0) L 08/31/23 20:18
Physical Exam
-
Vital Signs:
Vital Signs
Temp Pulse Resp BP Pulse Ox
98.5 F 86 14 159/79 93
09/16/23 07:38 09/16/23 10:00 09/16/23 10:00 09/16/23 10:00 09/16/23 10:00
Cardiovascular:: Regular rate and rhythm
Respiratory:: Bilateral: Coarse
Lung Excursion:: Normal
Abdomen:: Nontender and Soft
Bowel Sounds:: Normal
Extremity Edema:: +1: Bilateral:
--- NOTE | 2023-09-16 11:08 | W.PN.PUL3 ---
Today's Communication / Plan
-
s/p PEG, not tolerating TFs without n/v
Profoundly deconditioned, no weaning well this AM--i will shorten her PS wean time to 2 hours daily
Disposition in process by team, but bed not available until Monday
Continue routine care until then
Assessment
-
Mrs Shruti Rockwell is a 62 year old F with history of chronic hypoxic/hypercarbic resp failure s/p trach, post COVID illness, who p/w CC shortness of breath. The patient was recently discharged from 08/25/23 for mucus plugging. Family states that on
day of admission, the patient had decreased responsiveness. She is placed on Trilogy at night/trach collar through the day. She has been sleeping more and less conversive. They have noticed her exhaled TV on Trilogy reporting on avg <200cc
nightly. Her baseline settings are TV 350/PS8/40%/5+. Per medics, the patient was initially on 15 L but desaturated to the 80s. She had to be bagged and her saturations did improve. She is placed on vent in ER and saturations are now improved.
CXR appears similar to prior. We are consulted for eval 09/01/23.
Hypoxemic and hypercapnic respiratory failure due to recurrent mucous plug/left lung atelectasis
ABG 08/17/2023--52/59/7 0.24
Ventilator dependent respiratory failure
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
Status post emergent bronchoscopy at the bedside 08/18/2023-mucous plugs removed from the left
Pneumonia - SCx from 09/04 and BAL from 09/05 growing Serratia marcescens + Pseudomonas aeruginosa
Left pleural effusion
CHINTAN (Cr baseline 2.1)
Anemia-normocytic
Hypocalcemia
Hypernatremia
Metabolic and respiratory acidosis
Conditions present prior to admission:
Chronic hypercapnic/hypoxemic respiratory failure/chronic tracheostomy/nocturnal ventilation.
Severe Covid/ECMO 2019.
Diabetes.
Hypertension.
CAD/angioplasty 2020.
Recurrent UTI.
Ambulatory dysfunction/wheelchair-bound.
Chronic anemia.
Overweight.
Renal calculi.
Laparoscopic cholecystectomy 07/2020. Bilateral ureteroscopy with lithotripsy of the right renal stone and clearing of left renal pelvic fungal ball. Laminectomy. .
Plan/recommendations
No change in respiratory status overnight
No weaning 09/13 due to procedure, has been maintained on assist-control, volume-cycled ventilation
Rapid shallow breathing with use of accessory muscles during trach collar attempts
Oxygenation remained stable
Continues to have intermittent secretions.
Suspect critical illness polyneuropathy
Chronic respiratory failure: Patient on trilogy ventilator at home. This admission settings where not optimal.Data from trilogy 08/16/23 showing usage 9.3 avg hours - MV 5.7 L/min - RR 23 - IPAP/EPAP 12.6/4.9 cm water - Avg VTe 249.1 - leak 32.5
L/min
Settings: Mode S, IPAP 13 EPAP 5
Currently depending on mechanical ventilation 10/10: As above unable to wean the last several days.
Unfortunately has not able to wean on trach collar. Tube feeds started today via PEG tube
Continue mechanical ventilation: On ACV at 16-450-5-0.4.
Plateau pressure 25
Aspiration precautions
Routine tracheostomy tube care continues
Continue daily trials of weaning, shortened time to 2 hours daily
Continue secretion clearance interventions: Persistent left white out despite maximal interventions.
CXR on AM of 09/05 shows persistent L-atelectasis.
Dr Epstein performed bronchoscopy on 09/05 for pulmonary toilet purposes and BAL of LLL --> Cx grew Serratia marcescens + Pseudomonas aeruginosa � follow-up sensitivities
During bronch, there was a mucosal abnormality at her LLL at the secondary fran, which appeared white/shiny --> concern for dysplasia but cytology negative for malignancy.
Maximal secretion clearance interventions ongoing:
Sport bed
Continue VEST/mucomyst trach instillations and alb nebs q6h
DNs changed to alb nebs as above and prn
Chest x-ray 09/11/2023: Reviewed, showed improved aeration on the left but persistent left sided atelectasis.
Repeat chest x-ray 09/17
Bronchoscopy at the bedside Dr. Treviño 09/11/2023:, Tolerated well per no evidence for large airway secretions bilaterally. No endobronchial masses. Secondary fran left lower lobe patchy leukoplakia. Has been biopsied in the past.
Nonobstructive.
Suspect chest x-ray is related to compressive atelectasis, possible some degree of pleural effusion/recovering pneumonia.
Tracheostomy has been exchanged:
Dr. Powell evaluated her on 09/05 --> #[id number] placed on 09/05 (mercy); please make sure that extra tracheostomy is at bedside.
-
Pneumonia: Resolved. Completed antibiotic therapy
Discontinued antibiotics on 2023: Afebrile. Cultures negative. Fever again on AM of 09/04 --> ABx restarted with cefepime; trach secs culture 09-04 + BAL 09-05 both growing Serratia marcescens + Pseudomonas aeruginosa.
Positive blood culture 08-30 suspect contaminant (Lactob casei)
ID has evaluated the patient, (completed 5 d cefepime 09-08)-infectious disease has signed off.
Continue to monitor off antibiotics.
Swallowing dysfunction:
Recurrent microaspiration also has been contemplated in the past. She has been evaluated by speech therapy multiple times in the past. Diet has been modified.
Primary team ordered video barium swallow--> unfortunately patient is not safe to be placed back onto trach collar at this time.
Will consider transition to trach collar over the weekend versus CPAP wean
-
DVT prophylaxis-on heparin
Early mobilization/bedside range of motion-baseline wheelchair-bound and ambulatory dysfunction
Nutritional support via Dobbhoff tube.
DC planning to LTAC if family desires. Dr. Treviño updated her 09/13/2023 need for PEG tube and eventual placement.
Prognosis is very poor long-term. Depending on extent of family desire for aggressive care, hospice may be an option
Continue support as above
The patient was last seen in the pulmonary office by Kalpana Mobley NP 06/01/2023 and has an appointment 09/07/2023 at 10:30 AM --> this will be re-scheduled.
Can eval for discharge planning once Trilogy issue resolved and new pneumonia effectively treated.
Disposition efforts
Diagnostic Data:
CXR 04-27, reviewed, L basilar atelectasis
CXR 04-19, resolved total L atelectasis, currently back to chronic L basilar atelectasis. New tracheostomy
CXR 04-16, portable, L basilar atelectasis
CXR 04/11/22- 1. Complete opacification of the left hemithorax, likely on the basis of a large pleural effusion and compressive atelectasis upon the left lung. Mild right basilar pneumonia suspected
Chest x-ray 08/17/2023-near complete opacification throughout the left Jovanni thorax
Echocardiogram 01/10/22-EF 60-65%, no significant valvular disease, small pericardial effusion
Echocardiogram 03/22/22: Normal left ventricular chamber size. Normal left ventricular systolic�function. Normal regional wall motion. Normal left ventricular wall thickness.�Left ventricular ejection fraction is 60-65%. Mild tricuspid
regurgitation.�Small to moderate pericardial effusion without evidence of hemodynamic�compromise.�Compared to the previous echo Dec 2021, there is no significant change.
CT CHEST 04/11/22- �A moderate to large left pleural effusion and complete collapse/atelectasis of the left lung account for the left hemithorax opacification on the prior chest radiograph. Findings are in part likely secondary to mucous plugging
given the presence of opacification of the left mainstem bronchus and left upper and lower lobe bronchi, patchy opacifications right middle and lower lobe suspicious for pneumonia, moderate right pleural effusion and ill-defined sclerotic lesion
T12, osseous metastasis not completely excluded
CT CHEST 03/22/22 - There is no CT evidence for pulmonary embolism. No aortic dissection.There are extremely large bilateral pleural effusions right greater than left and associated bilateral consolidation most prominent in the left lower
lobe.Cardiomegaly. Increased pericardial effusion.
CT chest 08/17/2023-occluded left mainstem bronchus presumably mucous plugs with complete atelectasis left lung moderate size left pleural effusion, small to moderate right pleural effusion
VSE 04/28/22: No aspiration. Laryngeal penetration with cough with thin liquids by cup.
Spirometry 09/09/21-FEV1 790 mL-36%, FVC 790 mL 27%. Some difficulties with maneuver and thus may offer unreliability. Severe restriction.�������
PFT 02/08/22-FVC 1.01/30%, FEV1 0.70/35%, ratio 69%, unable to perform lung volumes and diffusing capacity.
Subjective Data
-
Date of Service:
Date of Service: September 16, 2023
Chief Complaint: Pulmonary Follow Up (Acute respiratory failure/mucous plugging.)
Subjective:
tachypneic on PS 15, feels weak/tired
daughter at bedside
Objective Data
Data Reviewed
Vital Signs / I&O / Oxygen:
Vital Signs
Temp Pulse Resp BP Pulse Ox
98.5 F 86 14 159/79 93
09/16/23 07:38 09/16/23 10:00 09/16/23 10:00 09/16/23 10:00 09/16/23 10:00
Intake and Output
09/15/23 09/16/23 09/17/23
06:59 06:59 06:59
Intake Total 530 / 530
Balance 530 / 530
SaO2 [CPAP/PSV] 96
SaO2 [A/C] 99
SaO2 93
Physical Exam
General: Comfortable
HEENT: Normocephalic, Anicteric and Tracheotomy
Cardiovascular: S1-S2, Regular Rhythm, Murmur (n), Rub (n) and Peripheral Edema (Trace edema)
Respiratory: Wheeze (Negative), Crackles (Bilaterally), Rhonchi (Bilaterally (L >R)), Non-Labored Respirations, Other (Mechanical breath sounds heard bilaterally) and Other (Tracheotomy)
GI: Soft, Non Distended, Non Tender, Normal Bowel Sounds and Feeding Tube (PEG)
Neurology: Awake (Eyes open) and No Motor Deficits
Skin: Cyanosis (n), Jaundice (n) and Rash (n)
Labs/Micro/Reports
Lab Data
09/16/23 04:00
09/16/23 04:00
--- NOTE | 2023-09-16 11:30 | PTCARENOTE ---
Pt to go back on AC as RR high .
--- NOTE | 2023-09-16 12:10 | PTCARENOTE ---
Pt continues on cpap wean without incident. TF increased to 70 ml/hr. Tolerating.
[2023-09-16 12:28] LABS: Glucose - Point of Care 245 mg/dl (70-99)
[2023-09-16] MEDS: NOVOLOG FLEXPEN-LOW RESISTANCE 2 UNITS SC ×2 (12:29→17:51)
--- NOTE | 2023-09-16 12:44 | PTCARENOTE ---
Pt now has a co of nausea TF turned to [address] Yuan notified and Zofran ordered
--- NOTE | 2023-09-16 13:06 | RESPNOTE ---
Patient weaned on PSV 15/5 for almost five hours. Returned back to A/C, per Dr. Vega 450/16/40% +5 Suctioned patient for scant amount thin clear secretions.
--- NOTE | 2023-09-16 14:41 | CM ---
CM called to check status of link nicholson ([phone]), office currently closed. CM will continue to follow for all discharge planning needs.
[facility] once insurance approves.
[2023-09-16] MEDS: DESENEX/MITRAZOL/ZEASORB 1 APPLIC TOPICAL ×2 (17:26→20:42)
[2023-09-16 17:59] LABS: Glucose - Point of Care 204 mg/dl (70-99)
[2023-09-16] MEDS: LIPITOR 20 MG PO (20:41)
--- NOTE | 2023-09-16 22:15 | PTCARENOTE ---
Pt c/o nausea after turning and cleaning patient. Pt w/ no residuals from TFs, abd soft. No vomiting. Zofran given w/ relief. TFs to hold x 1 hr.
[2023-09-16] MEDS: ZOFRAN 4 MG IV (22:17)
[2023-09-16] MEDS: LANTUS 0.15 UNITS SC (22:49)
[2023-09-16] MEDS: CARDURA 1 MG PO (22:50)
[2023-09-16 22:55] LABS: Glucose - Point of Care 176 mg/dl (70-99)
[2023-09-17] VITALS (12 sets, daily range): BP systolic 133–157; BP diastolic 57–73; BMI 26.3
--- NOTE | 2023-09-17 00:19 | PTCARENOTE ---
Received pt resting comfortably in bed. AAOx2 (place) - knows it's August, but thought it was 2021. SR on the monitor. Lungs w/ scattered Rhonchi - crackles at the bases. Trach #6 XLT - IC, trach ties, and foam trach dressing changed. Vent settings:
16/450/40%/5 PEEP. Pt requiring frequent suctioning - thick hansen secretions. TFs infusing @ 60. PEG site w/ scant amount of bloody drainge to dressing - changed. + placement confirmed. No residual. Pt changed for gross incont of urine and loose
stools. Pt w/ Stage II wound - cleansed w/ vasche. Turning q2hrs
[2023-09-17] MEDS: ROBITUSSIN 200 MG TUBE ×4 (01:25→21:32)
[2023-09-17 05:02] LABS: Hematocrit 26.9 % (37.0-47.0); Hemoglobin 8.9 g/dL (12.0-16.0); Mean Corp Hgb Conc. 33.1 g/dL (33.0-37.0); Mean Corpuscular Hgb 28.6 pg (27.0-31.0); Mean Corpuscular Volume 86.5 fL (81.0-99.0); Mean Platelet Volume 11.6 fL (7.4-10.4); Platelet Count 208 10^3/uL (130-400); Red Blood Cell Count 3.11 10^6/uL (4.20-5.40); Red Cell Dist. Width 15.9 % (11.5-14.5)
[2023-09-17 05:16] LABS: Blood Urea Nitrogen 43 mg/dl (7-17); Calcium 7.7 mg/dl (8.4-10.2); Carbon Dioxide 25 mmol/L (22-30); Chloride 107 mmol/L (98-107); Estimated Creatinine Clearance 28 ml/min; Glucose 150 mg/dl (70-99); Phosphorus 5.3 mg/dl (2.5-4.5); Potassium 4.5 mmol/L (3.5-5.1); Sodium 137 mmol/L (135-145); eGFR 31.07
[2023-09-17 05:29] LABS: Glucose - Point of Care 162 mg/dl (70-99)
[2023-09-17] MEDS: NOVOLOG FLEXPEN-LOW RESISTANCE 1 UNITS SC ×4 (05:37→23:24)
--- NOTE | 2023-09-17 05:42 | PTCARENOTE ---
Pt is tolerating reinitiation of tube feeds no further complaints of nausea. PEG site changed x 3 d/t serosanguineous drainage.
[2023-09-17] MEDS: VENTOLIN NEBULES 2.5 MG INH (07:11)
[2023-09-17] MEDS: MUCOMYST 10% 4 ML INH ×2 (07:11→20:42)
[2023-09-17] MEDS: LOPRESSOR 50 MG PO ×2 (08:26→21:31)
[2023-09-17] MEDS: SODIUM BICARBONATE 650 MG PO ×3 (08:26→21:31)
[2023-09-17] MEDS: VITAMIN B-12 1000 MCG PO (08:27)
[2023-09-17] MEDS: DESENEX/MITRAZOL/ZEASORB 1 APPLIC TOPICAL ×2 (08:27→21:32)
[2023-09-17] MEDS: FEOSOL 325 MG PO (08:27)
[2023-09-17] MEDS: ASPIR LOW (ENTERIC COATED) 81 MG PO (08:27)
[2023-09-17] MEDS: LASIX 20 MG PO (08:27)
[2023-09-17] MEDS: NORVASC 10 MG PO (08:27)
[2023-09-17] MEDS: POLYSPORIN OINTMENT 1 APPLIC TOPICAL (08:29)
[2023-09-17] MEDS: VITAMIN D3 (cholecalciferol) 25 MCG PO (08:30)
--- NOTE | 2023-09-17 09:53 | CM ---
Addendum entered by Kari Veronica RN 09/17/23 13:56:
The 2 faxes sent today did not go through - fax transmission verification report says SUSSY.
Original Note:
Patient with Hx trach collar daytime, trilogy -mechanical ventilation at night, ambulatory dysfunction, w/c bound with Dx Acute on chronic hypercapnic/hypoxemic respiratory failure, Acute metabolic encephalopathy. CPAP wean trials. VEST/mucomyst
trach instillations. Tube feeds rate 60 at midnight, goal rate 70- Osmolite via PEG.
CM faxed requisite LTAC Precert Form plus clinical info to [facility] Insurance twice Monday - confirmation No Go. CM refaxed 55 pages twice again this morning from 2 different fax machines.
Plan check status of fax of LTAC Precert Form & referral on Monday at ph [phone].
Plan [facility] LT[facility] once insurance approves.
--- NOTE | 2023-09-17 09:56 | W.PN.HOSP.TC ---
Today's Communication/Plan
-
see bold
Assessment / Plan
Assessment / Plan
62-year-old female with chronic tracheostomy uses ventilator at night and trach collar during the day. She was admitted recently and was discharged on 08/25/2023 but she was admitted with acute on chronic hypoxic hypercapnic respiratory failure with
opacification of the left hemithorax. Patient underwent bronchoscopy on 08/18/2023 mucous plugs removed from the left. BAL grew Proteus and completed 7-day course of Unasyn per ID. She also had CHINTAN with CKD stage IV FLAVIO inhibitor was held.
Ultrasound of the kidney showed bilateral renal disease. She comes back with decreased responsiveness.
Gen: continues to remain NAD, appears chronically ill
Eyes: EOMI/PERRLA/no scleral icterus
Neck: supple.
CV: continues to remain RRR, +S1/S2, no m/r/g.
Resp: continues to remain CTAB anteriorly, no rales, wheezes, or rhonchi.
Abd: +BS, soft, NT, ND
Skin: No rashes.
Psych: calm
09/06/23 15:39 Bronch Left Lower Lobe Fungal Culture - Preliminary
Culture in progress.
Positive cultures are reported as soon as detected.
Final report to follow in four to five weeks.
09/05/23 09:11 Blood/Venous Blood Culture - Final
No Growth - Final Report
09/05/23 09:00 Blood/Venous Blood Culture - Final
No Growth - Final Report
09/07/23 06:00 Bronch Left Lower Lobe Acid Fast Bacilli Smear - Preliminary
09/07/23 06:00 Bronch Left Lower Lobe Acid Fast Bacilli Culture - Preliminary
09/06/23 15:39 Bronch Left Lower Lobe Respiratory Culture - Final
Serratia marcescens
Pseudomonas aeruginosa
09/06/23 15:39 Bronch Left Lower Lobe Gram Stain - Final
09/05/23 13:11 Tracheal Aspirate Respiratory Culture - Final
Serratia marcescens
Pseudomonas aeruginosa
09/05/23 13:11 Tracheal Aspirate Gram Stain - Final
08/31/23 14:39 Blood/Venous Blood Culture - Final
Lactobacillus casei
08/31/23 14:39 Blood/Venous Gram Stain - Final
08/31/23 14:39 Blood/Venous Blood Culture - Final
No Growth - Final Report
09/01/23 03:39 Nose MRSA Screen - Final
No Methicillin Resistant Staphylococcus aureus isolated.
08/31/23 14:39 Urine Urine Culture - Final
No Significant Growth
Echo 08/18/23: EF 60 to 65%. Mild concentric LVH. Normal diastolic function. Normal RV size and function. Mild TR. Pulmonary pressure 30 cm of mercury. Small pericardial effusion without hemodynamic compromise
EGD (during PEG placement) 09/14/23: Normal esophagus. Scar in the greater curvature of the stomach. Normal examined duodenum. An externally removable PEG placement was successfully completed. No specimens collected.
Acute on chronic hypercapnic/hypoxemic respiratory failure:
-With acute respiratory acidosis on admission
-DUST PULLER the patient's TV has decreased to an average of less than 200cc nightly (will be rectified with [employer]).
-continues on ATC ACMV
-Wean as tolerated during day time
-VSE when patient can be on a trach collar
-s/p bronchoscopy 09/06/23
-ENT saw in consult and placed #6 Shicatalina (Long) on 09/06/2023 as there was concern for air leak
-Respiratory cultures with pseudomonas and Serratia (treated as aspiration PNA)
-chest PT
-appreciate ID, pt completed 5 days cefepime. Patient to start renally dosed Levofloxacin if relapses/develops fever.
-Repeat Bronchoscopy 09/11/23 was unremarkable (no secretions, masses, or mucous plugging)
Acute metabolic encephalopathy on admission (and intermittent since):
-EEG, CT of the head all negative
-likely due to inadequate TV at home causing acute on chronic hypercapnic and hypoxemic respiratory failure with acute respiratory acidosis (on 30/07 at home as per family)
Other problems:
Anemia of chronic disease and Fe deficiency: Hb 10 s/p pRBCs
One set of BCx with lactobacillus Casei: Likely contaminant
Femoral line removed and Right IJ placed 09/07/23
Hypokalemia and hyperkalemia: resolved s/p rectal Kayexalate, D50W/insulin, Lokelma. K now 5.2. cont Lokelma M/W/F.
Hypomagnesemia, resolved
Hypocalcemia
Positive LILIAN Screen: OP Rheum Eval
CKD4, Cr at baseline. Sodium bicarb
DM2: cont SSI/accuchecks/Lantus
h/o small to moderate pericardial effusion
Essential hypertension: cont Norvasc/doxazosin.
Hyperlipidemia: Continue statin
Coronary artery disease status post angioplasty: cont ASA/BB
h/o C. diff
COVID pneumonia 2019 with ECMO and ventilator and 3-month hospital stay at [facility]
Ambulatory dysfunction, wheelchair-bound since June 2019
Spinal stenosis
Overweight per BMI criteria
Hypoalbuminemia
Nutrition: s/p PEG 09/14/23. TFs started, now 60cc/hr.
FULL/Heparin
Extremely poor prognosis. Patient is hospice appropriate. I did explain to the patient's daughter, on 09/11/23, that she will need LTAC on discharge (I did not mention hospice). As per CM, pt's family would like [facility] and they won't have a
bed until 09/18/23 at the earliest.
Pt's daughter updated at bedside.
Anticipated Discharge: Within 24 hours
Subjective/Interval History
-
Date of Service: September 17, 2023
No new complaints.
Objective Data
-
Labs:
Laboratory Results
09/17/23
04:41
WBC 9.0
Hgb 8.9 L
Hct 26.9 L
Plt Count 208
Sodium 137
Potassium 4.5
Chloride 107
Carbon Dioxide 25
BUN 43 H
Creatinine 1.8 H
Glucose 150 H
Calcium 7.7 L
Vital Signs:
Vital Signs
Temp Pulse Resp BP Pulse Ox
99.0 F 63 17 152/61 100
09/17/23 07:35 09/17/23 08:27 09/17/23 07:15 09/17/23 08:27 09/17/23 08:00
I&O
09/16/23 09/17/23 09/18/23
06:59 06:59 06:59
Intake Total 2054
Balance 2054
--- NOTE | 2023-09-17 09:57 | W.PN.PUL3 ---
Today's Communication / Plan
-
Limit PS wean time as she generally very tachypneic on (RR >30s), anxiety is likely factor
Vent continuously
Tolerating TFs via PEG
Awaiting placement at LTAC
Assessment
-
Mrs Shruti Rockwell is a 62 year old F with history of chronic hypoxic/hypercarbic resp failure s/p trach, post COVID illness, who p/w CC shortness of breath. The patient was recently discharged from 08/25/23 for mucus plugging. Family states that on
day of admission, the patient had decreased responsiveness. She is placed on Trilogy at night/trach collar through the day. She has been sleeping more and less conversive. They have noticed her exhaled TV on Trilogy reporting on avg <200cc
nightly. Her baseline settings are TV 350/PS8/40%/5+. Per medics, the patient was initially on 15 L but desaturated to the 80s. She had to be bagged and her saturations did improve. She is placed on vent in ER and saturations are now improved.
CXR appears similar to prior. We are consulted for eval 09/01/23.
Hypoxemic and hypercapnic respiratory failure due to recurrent mucous plug/left lung atelectasis
ABG 08/17/2023--52/59/7 0.24
Ventilator dependent respiratory failure
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
Status post emergent bronchoscopy at the bedside 08/18/2023-mucous plugs removed from the left
Pneumonia - SCx from 09/04 and BAL from 09/05 growing Serratia marcescens + Pseudomonas aeruginosa
Left pleural effusion
CHINTAN (Cr baseline 2.1)
Anemia-normocytic
Hypocalcemia
Hypernatremia
Metabolic and respiratory acidosis
Conditions present prior to admission:
Chronic hypercapnic/hypoxemic respiratory failure/chronic tracheostomy/nocturnal ventilation.
Severe Covid/ECMO 2019.
Diabetes.
Hypertension.
CAD/angioplasty 2020.
Recurrent UTI.
Ambulatory dysfunction/wheelchair-bound.
Chronic anemia.
Overweight.
Renal calculi.
Laparoscopic cholecystectomy 07/2020. Bilateral ureteroscopy with lithotripsy of the right renal stone and clearing of left renal pelvic fungal ball. Laminectomy. .
Plan/recommendations
No change in respiratory status overnight
No weaning 09/13 due to procedure, has been maintained on assist-control, volume-cycled ventilation
Rapid shallow breathing with use of accessory muscles during trach collar attempts, anxiety is a component
Oxygenation remained stable
Continues to have intermittent secretions.
Suspect critical illness polyneuropathy
Chronic respiratory failure: Patient on trilogy ventilator at home. This admission settings where not optimal.Data from trilogy 08/16/23 showing usage 9.3 avg hours - MV 5.7 L/min - RR 23 - IPAP/EPAP 12.6/4.9 cm water - Avg VTe 249.1 - leak 32.5
L/min
Settings: Mode S, IPAP 13 EPAP 5
Currently depending on mechanical ventilation 10/10: As above unable to wean the last several days.
Unfortunately has not able to wean on trach collar. Tube feeds started today via PEG tube
Continue mechanical ventilation: On ACV at 16-450-5-0.4.
Plateau pressure 25
Aspiration precautions
Routine tracheostomy tube care continues
Continue daily trials of weaning, shortened wean time to 2 hours daily
She is not making significant progress
Continue secretion clearance interventions: Persistent left white out despite maximal interventions.
CXR on AM of 09/05 shows persistent L-atelectasis.
Dr Epstein performed bronchoscopy on 09/05 for pulmonary toilet purposes and BAL of LLL --> Cx grew Serratia marcescens + Pseudomonas aeruginosa � follow-up sensitivities
During bronch, there was a mucosal abnormality at her LLL at the secondary fran, which appeared white/shiny --> concern for dysplasia but cytology negative for malignancy.
Maximal secretion clearance interventions ongoing:
Sport bed
Continue VEST/mucomyst trach instillations and alb nebs q6h
DNs changed to alb nebs as above and prn
Chest x-ray 09/11/2023: Reviewed, showed improved aeration on the left but persistent left sided atelectasis.
Repeat chest x-ray 09/17
Bronchoscopy at the bedside Dr. Treviño 09/11/2023:, Tolerated well per no evidence for large airway secretions bilaterally. No endobronchial masses. Secondary fran left lower lobe patchy leukoplakia. Has been biopsied in the past.
Nonobstructive.
Suspect chest x-ray is related to compressive atelectasis, possible some degree of pleural effusion/recovering pneumonia.
Tracheostomy has been exchanged:
Dr. Powell evaluated her on 09/05 --> #[id number] placed on 09/05 ([facility]); please make sure that extra tracheostomy is at bedside.
-
Pneumonia: Resolved. Completed antibiotic therapy
Discontinued antibiotics on 2023: Afebrile. Cultures negative. Fever again on AM of 09/04 --> ABx restarted with cefepime; trach secs culture 09-04 + BAL 09-05 both growing Serratia marcescens + Pseudomonas aeruginosa.
Positive blood culture 08-30 suspect contaminant (Lactob casei)
ID has evaluated the patient, (completed 5 d cefepime 09-08)-infectious disease has signed off.
Continue to monitor off antibiotics.
Swallowing dysfunction:
Recurrent microaspiration also has been contemplated in the past. She has been evaluated by speech therapy multiple times in the past. Diet has been modified.
Primary team ordered video barium swallow--> unfortunately patient is not safe to be placed back onto trach collar at this time.
Will consider transition to trach collar over the weekend versus CPAP wean
-
DVT prophylaxis-on heparin
Early mobilization/bedside range of motion-baseline wheelchair-bound and ambulatory dysfunction
Nutritional support via Dobbhoff tube.
DC planning to LTAC if family desires. Dr. Treviño updated her 09/13/2023 need for PEG tube and eventual placement.
Prognosis is very poor long-term. Depending on extent of family desire for aggressive care, hospice may be an option
Continue support as above
The patient was last seen in the pulmonary office by Kalpana Mobley TOE SEWER 06/01/2023 and has an appointment 09/07/2023 at 10:30 AM --> this will be re-scheduled.
Can eval for discharge planning once Trilogy issue resolved and new pneumonia effectively treated.
Disposition efforts
Diagnostic Data:
CXR 04-27, reviewed, L basilar atelectasis
CXR 04-19, resolved total L atelectasis, currently back to chronic L basilar atelectasis. New tracheostomy
CXR 04-16, portable, L basilar atelectasis
CXR 04/11/22- 1. Complete opacification of the left hemithorax, likely on the basis of a large pleural effusion and compressive atelectasis upon the left lung. Mild right basilar pneumonia suspected
Chest x-ray 08/17/2023-near complete opacification throughout the left Jovanni thorax
Echocardiogram 01/10/22-EF 60-65%, no significant valvular disease, small pericardial effusion
Echocardiogram 03/22/22: Normal left ventricular chamber size. Normal left ventricular systolic�function. Normal regional wall motion. Normal left ventricular wall thickness.�Left ventricular ejection fraction is 60-65%. Mild tricuspid
regurgitation.�Small to moderate pericardial effusion without evidence of hemodynamic�compromise.�Compared to the previous echo Dec 2021, there is no significant change.
CT CHEST 04/11/22- �A moderate to large left pleural effusion and complete collapse/atelectasis of the left lung account for the left hemithorax opacification on the prior chest radiograph. Findings are in part likely secondary to mucous plugging
given the presence of opacification of the left mainstem bronchus and left upper and lower lobe bronchi, patchy opacifications right middle and lower lobe suspicious for pneumonia, moderate right pleural effusion and ill-defined sclerotic lesion
T12, osseous metastasis not completely excluded
CT CHEST 03/22/22 - There is no CT evidence for pulmonary embolism. No aortic dissection.There are extremely large bilateral pleural effusions right greater than left and associated bilateral consolidation most prominent in the left lower
lobe.Cardiomegaly. Increased pericardial effusion.
CT chest 08/17/2023-occluded left mainstem bronchus presumably mucous plugs with complete atelectasis left lung moderate size left pleural effusion, small to moderate right pleural effusion
VSE 04/28/22: No aspiration. Laryngeal penetration with cough with thin liquids by cup.
Spirometry 09/09/21-FEV1 790 mL-36%, FVC 790 mL 27%. Some difficulties with maneuver and thus may offer unreliability. Severe restriction.�������
PFT 02/08/22-FVC 1.01/30%, FEV1 0.70/35%, ratio 69%, unable to perform lung volumes and diffusing capacity.
Subjective Data
-
Date of Service:
Date of Service: September 17, 2023
Chief Complaint: Pulmonary Follow Up (Acute respiratory failure/mucous plugging.)
Subjective:
remains on vent, no significant changes
PS wean ongoing, tachypenic on wean
better RR on vent
Objective Data
Data Reviewed
Vital Signs / I&O / Oxygen:
Vital Signs
Temp Pulse Resp BP Pulse Ox
99.0 F 63 17 152/61 100
09/17/23 07:35 09/17/23 08:27 09/17/23 07:15 09/17/23 08:27 09/17/23 08:00
Intake and Output
09/16/23 09/17/23 09/18/23
06:59 06:59 06:59
Intake Total 2054
Balance 2054
SaO2 [CPAP/PSV] 96
SaO2 [A/C] 100
SaO2 97
Physical Exam
General: Comfortable
HEENT: Normocephalic, Anicteric and Tracheotomy
Cardiovascular: S1-S2, Regular Rhythm, Murmur (n), Rub (n) and Peripheral Edema (Trace edema)
Respiratory: Wheeze (Negative), Crackles (Bilaterally), Rhonchi (Bilaterally (L >R)), Non-Labored Respirations, Other (Mechanical breath sounds heard bilaterally) and Other (Tracheotomy)
GI: Soft, Non Distended, Non Tender, Normal Bowel Sounds and Feeding Tube (PEG)
Neurology: Awake (Eyes open) and No Motor Deficits
Skin: Cyanosis (n), Jaundice (n) and Rash (n)
Labs/Micro/Reports
Lab Data
09/17/23 04:41
09/17/23 04:41
--- NOTE | 2023-09-17 10:42 | W.PN.NEPH.PH ---
Today's Communication / Plan
-
follow BMP
Assessment/Plan
-
Assessment:
Hyperkalemia
CKD (Cr baseline 2.1-2.6)
NAGMA
acute on chronic hypercapnic/hypoxemic respiratory failure
Anemia of chronic disease
T2DM
moderate pericardial effusion
HTN
DLDC.diff
Amb dysfunction
h/o kidney stones with stent placement in the past
Hypoalbuminemia
Plan:
lasix 20mg daily
lokelma prn
follow BMP
continue FWF 25
d/w family
for LTAC, rec BMP weekly
-
-
Date of Service: September 17, 2023
CC / HPI / ROS
-
Chief Complaint:
hyperkalemia
History of Present Illness:
K 4.5
Cr stable 1.8
hgb stable 9.8
Review of Systems:
trach collar in place
TF 60 without issue
Labs
-
Labs:
WBC 9.0 10^3/uL (4.8-10.8) 09/17/23 04:41
RBC 3.11 10^6/uL (4.20-5.40) L 09/17/23 04:41
Hgb 8.9 g/dL (12.0-16.0) L 09/17/23 04:41
Hct 26.9 % (37.0-47.0) L 09/17/23 04:41
Plt Count 208 10^3/uL (130-400) 09/17/23 04:41
Sodium 137 mmol/L (135-145) 09/17/23 04:41
Potassium 4.5 mmol/L (3.5-5.1) 09/17/23 04:41
Chloride 107 mmol/L (98-107) 09/17/23 04:41
Carbon Dioxide 25 mmol/L (22-30) 09/17/23 04:41
BUN 43 mg/dl (7-17) H 09/17/23 04:41
Creatinine 1.8 mg/dL (0.6-1.0) H 09/17/23 04:41
eGFR 31.07 09/17/23 04:41
Glucose 150 mg/dl (70-99) H 09/17/23 04:41
Calcium 7.7 mg/dl (8.4-10.2) L 09/17/23 04:41
Phosphorus 5.3 mg/dl (2.5-4.5) H 09/17/23 04:41
Dre-C-Xbdrewsjnnr Pept [id number] pg/ml 09/11/23 04:57
Albumin 2.5 g/dl (3.5-5.0) L 08/31/23 20:18
Physical Exam
-
Vital Signs:
Vital Signs
Temp Pulse Resp BP Pulse Ox
99.0 F 63 17 152/61 100
09/17/23 07:35 09/17/23 08:27 09/17/23 07:15 09/17/23 08:27 09/17/23 08:00
Cardiovascular:: Regular rate and rhythm
Respiratory:: Bilateral: Coarse
Lung Excursion:: Normal
Abdomen:: Nontender and Soft
Bowel Sounds:: Normal
Extremity Edema:: +1: Bilateral:
--- NOTE | 2023-09-17 11:21 | RESPNOTE ---
Patient weaned for one hour forty-five minutes on PSV 15/5 cmH2O 40%. RR increased to over 35. Patient's RR during most of wean was 24-29. Suctioned small amount thin secretions.
[2023-09-17 12:29] LABS: Glucose - Point of Care 176 mg/dl (70-99)
--- NOTE | 2023-09-17 15:54 | PTCARENOTE ---
Rec'd pt this AM. Unable to tolerate CPAP wean. Pt becomes very tachypnic with RR in the 30s. On AC vent settings pt RR is 16-19. Placed back on AC. vital signs stable. incontinent of large amounts of urine and stool. very weak. sleeping much of the
time. family at bedside. education provided.
[2023-09-17 18:37] LABS: Glucose - Point of Care 178 mg/dl (70-99)
[2023-09-17] MEDS: CARDURA 1 MG PO (21:31)
[2023-09-17] MEDS: LIPITOR 20 MG PO (21:31)
[2023-09-17] MEDS: TYLENOL/FEVERALL 650 MG RECTAL (22:04)
[2023-09-17 23:01] LABS: Glucose - Point of Care 150 mg/dl (70-99)
[2023-09-17] MEDS: LANTUS 0.15 UNITS SC (23:24)
[2023-09-18] VITALS (12 sets, daily range): BP systolic 149–175; BP diastolic 65–104
[2023-09-18] MEDS: ROBITUSSIN 200 MG TUBE ×3 (03:00→20:34)
[2023-09-18 05:19] LABS: Hematocrit 31.2 % (37.0-47.0); Hemoglobin 9.7 g/dL (12.0-16.0); Mean Corp Hgb Conc. 31.1 g/dL (33.0-37.0); Mean Corpuscular Hgb 28.7 pg (27.0-31.0); Mean Corpuscular Volume 92.3 fL (81.0-99.0); Mean Platelet Volume 11.3 fL (7.4-10.4); Platelet Count 228 10^3/uL (130-400); Red Blood Cell Count 3.38 10^6/uL (4.20-5.40); White Blood Cell Count 8.8 10^3/uL (4.8-10.8)
[2023-09-18 06:07] LABS: Blood Urea Nitrogen 43 mg/dl (7-17); Calcium 8.1 mg/dl (8.4-10.2); Carbon Dioxide 27 mmol/L (22-30); Chloride 106 mmol/L (98-107); Estimated Creatinine Clearance 27 ml/min; Glucose 135 mg/dl (70-99); Potassium 5.3 mmol/L (3.5-5.1); Sodium 138 mmol/L (135-145); eGFR 29.12
[2023-09-18 06:15] LABS: Glucose - Point of Care 160 mg/dl (70-99)
[2023-09-18] MEDS: NOVOLOG FLEXPEN-LOW RESISTANCE 1 UNITS SC ×3 (07:10→23:09)
[2023-09-18] MEDS: MUCOMYST 10% 4 ML INH (07:45)
[2023-09-18] MEDS: VENTOLIN NEBULES 2.5 MG INH (07:45)
--- NOTE | 2023-09-18 08:31 | W.PN.NEPH.PH ---
Today's Communication / Plan
-
Add back Lokelma
Will increase sodium bicarb
Assessment/Plan
-
Assessment:
Hyperkalemia
CKD (Cr baseline 2.1-2.6)
NAGMA
acute on chronic hypercapnic/hypoxemic respiratory failure
Anemia of chronic disease
T2DM
moderate pericardial effusion
HTN
DLDC.diff
Amb dysfunction
h/o kidney stones with stent placement in the past
Hypoalbuminemia
Plan:
lasix 20mg daily
lokelma will be added back for hyperkalemia
Suspect ongoing respiratory acidosis is the causality of persistent hyperkalemia
follow BMP
continue FWF 25
d/w family
for LTAC, rec BMP weekly
-
-
Date of Service: September 18, 2023
CC / HPI / ROS
-
Chief Complaint:
hyperkalemia
History of Present Illness:
K 5.3
Cr stable 1.9
hgb stable 9.8
Review of Systems:
trach collar in place
TF 60/25 without issue
Labs
-
Labs:
WBC 8.8 10^3/uL (4.8-10.8) 09/18/23 04:50
RBC 3.38 10^6/uL (4.20-5.40) L 09/18/23 04:50
Hgb 9.7 g/dL (12.0-16.0) L 09/18/23 04:50
Hct 31.2 % (37.0-47.0) L 09/18/23 04:50
Plt Count 228 10^3/uL (130-400) 09/18/23 04:50
Sodium 138 mmol/L (135-145) 09/18/23 04:50
Potassium 5.3 mmol/L (3.5-5.1) H 09/18/23 04:50
Chloride 106 mmol/L (98-107) 09/18/23 04:50
Carbon Dioxide 27 mmol/L (22-30) 09/18/23 04:50
BUN 43 mg/dl (7-17) H 09/18/23 04:50
Creatinine 1.9 mg/dL (0.6-1.0) H 09/18/23 04:50
eGFR 29.12 09/18/23 04:50
Glucose 135 mg/dl (70-99) H 09/18/23 04:50
Calcium 8.1 mg/dl (8.4-10.2) L 09/18/23 04:50
Phosphorus 5.3 mg/dl (2.5-4.5) H 09/17/23 04:41
Cgi-Z-Mobacbnhcjr Pept 02444 pg/ml 09/11/23 04:57
Albumin 2.5 g/dl (3.5-5.0) L 08/31/23 20:18
Physical Exam
-
Vital Signs:
Vital Signs
Temp Pulse Resp BP Pulse Ox
98.5 F 64 16 157/71 98
09/18/23 03:21 09/18/23 00:00 09/18/23 00:00 09/17/23 22:01 09/18/23 04:00
Cardiovascular:: Regular rate and rhythm
Respiratory:: Bilateral: Coarse
Lung Excursion:: Normal
Abdomen:: Nontender and Soft
Bowel Sounds:: Normal
Extremity Edema:: +1: Bilateral:
Bond Catheter: No
[2023-09-18] MEDS: ASPIR LOW (ENTERIC COATED) PO (09:48)
[2023-09-18] MEDS: FEOSOL PO (09:49)
[2023-09-18] MEDS: NORVASC PO (09:50)
[2023-09-18] MEDS: SODIUM BICARBONATE PO (09:50)
[2023-09-18] MEDS: LASIX PO (09:50)
[2023-09-18] MEDS: LOPRESSOR PO (09:50)
[2023-09-18] MEDS: VITAMIN B-12 PO (09:51)
[2023-09-18] MEDS: VITAMIN D3 (cholecalciferol) PO (09:51)
[2023-09-18] MEDS: DESENEX/MITRAZOL/ZEASORB 1 APPLIC TOPICAL ×2 (10:04→20:32)
[2023-09-18] MEDS: LOKELMA 10 GRAM PO (10:06)
--- NOTE | 2023-09-18 10:07 | W.PN.HOSP.TC ---
Today's Communication/Plan
-
Medically stable for discharge to LTAC
Case management alerted.
Assessment / Plan
Assessment / Plan
62-year-old female with chronic tracheostomy uses ventilator at night and trach collar during the day. She was admitted recently and was discharged on 08/25/2023 but she was admitted with acute on chronic hypoxic hypercapnic respiratory failure with
opacification of the left hemithorax. Patient underwent bronchoscopy on 08/18/2023 mucous plugs removed from the left. BAL grew Proteus and completed 7-day course of Unasyn per ID. She also had CHINTAN with CKD stage IV FLAVIO inhibitor was held.
Ultrasound of the kidney showed bilateral renal disease. She comes back with decreased responsiveness.
Watching TV
Responds to questions
CVS S1 S2 Normal
Chest Decreased bases
Abd Peg Tube
LE no edema
09/06/23 15:39 Bronch Left Lower Lobe Respiratory Culture - Final
Serratia marcescens
Pseudomonas aeruginosa
09/05/23 13:11 Tracheal Aspirate Respiratory Culture - Final
Serratia marcescens
Pseudomonas aeruginosa
Echo 08/18/23: EF 60 to 65%. Mild concentric LVH. Normal diastolic function. Normal RV size and function. Mild TR. Pulmonary pressure 30 cm of mercury. Small pericardial effusion without hemodynamic compromise
EGD (during PEG placement) 09/14/23: Normal esophagus. Scar in the greater curvature of the stomach. Normal examined duodenum. An externally removable PEG placement was successfully completed. No specimens collected.
#Acute on chronic hypercapnic/hypoxemic respiratory failure:
-With acute respiratory acidosis on admission
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
-continues on ATC ACMV
-Wean as tolerated during day time
-VSE when patient can be on a trach collar
-s/p bronchoscopy 09/06/23
-ENT saw in consult and placed #6 Shiley (Long) on 09/06/2023 as there was concern for air leak
-Respiratory cultures with pseudomonas and Serratia (treated as aspiration PNA)
-chest PT
-appreciate ID, pt completed 5 days cefepime. Patient to start renally dosed Levofloxacin if relapses/develops fever.
-Repeat Bronchoscopy 09/11/23 was unremarkable (no secretions, masses, or mucous plugging)
#Acute metabolic encephalopathy on admission (and intermittent since):
-EEG, CT of the head all negative
-likely due to inadequate TV at home causing acute on chronic hypercapnic and hypoxemic respiratory failure with acute respiratory acidosis (on 30/07 at home as per family)
#Anemia of chronic disease and Fe deficiency: s/p 4 units of pRBCs
#One set of BCx with lactobacillus Casei: Likely contaminant
#Femoral line removed and Right IJ placed 09/07/23
#Hypokalemia and hyperkalemia: resolved s/p rectal Kayexalate, D50W/insulin, Lokelma. K now 5.2. cont Lokelma M/W/F.
#Hypomagnesemia, resolved
#Hypocalcemia- Check Vit D level.
#Positive LILIAN Screen: OP Rheum Eval
#CKD4, Cr at baseline. Sodium bicarb
#DM2: cont SSI/accuchecks/Lantus
#h/o small to moderate pericardial effusion
#Essential hypertension: cont Norvasc/doxazosin.
#Hyperlipidemia: Continue statin
#Coronary artery disease status post angioplasty: cont ASA/BB
#h/o C. diff. With loose stools -will place an order
#COVID pneumonia 2019 with ECMO and ventilator and 3-month hospital stay at [facility]
#Ambulatory dysfunction, wheelchair-bound since June 2019
#Spinal stenosis
#Overweight per BMI criteria
#Hypoalbuminemia
#Nutrition: s/p PEG 09/14/23. TFs started, now 60cc/hr.
#DVT Prophylaxis- SC Heparin
#FULL CODE
Extremely poor prognosis.
Pt's and daughter updated at bedside.
Discussed with LINDA at bed side
Anticipated Discharge: Within 24 hours
Subjective/Interval History
-
Date of Service: September 18, 2023
Objective Data
-
Labs:
Laboratory Results
09/18/23
04:50
WBC 8.8
Hgb 9.7 L
Hct 31.2 L
Plt Count 228
Sodium 138
Potassium 5.3 H
Chloride 106
Carbon Dioxide 27
BUN 43 H
Creatinine 1.9 H
Glucose 135 H
Calcium 8.1 L
Vital Signs:
Vital Signs
Temp Pulse Resp BP Pulse Ox
98.5 F 84 20 157/71 95
09/18/23 03:21 09/18/23 08:00 09/18/23 08:00 09/17/23 22:01 09/18/23 08:00
I&O
09/17/23 09/18/23 09/19/23
06:59 06:59 06:59
Intake Total 2054 1020 / 1020
Balance 2054 1020 / 1020
[2023-09-18 11:31] LABS: Vitamin D, 25-OH*** 30.5 ng/mL (30-80)
[2023-09-18] MEDS: POLYSPORIN OINTMENT 1 APPLIC TOPICAL (12:24)
[2023-09-18] MEDS: ROBITUSSIN TUBE ×2 (12:25→12:58)
[2023-09-18] MEDS: LOW STRENGTH ASPIRIN 81 MG TUBE (12:28)
[2023-09-18] MEDS: VITAMIN D3 (cholecalciferol) 25 MCG TUBE (12:29)
[2023-09-18] MEDS: LOPRESSOR 50 MG TUBE ×2 (12:29→20:34)
[2023-09-18] MEDS: FEOSOL 325 MG TUBE (12:30)
[2023-09-18] MEDS: NORVASC 10 MG TUBE (12:30)
[2023-09-18] MEDS: LASIX 20 MG TUBE (12:30)
[2023-09-18] MEDS: VITAMIN B-12 1000 MCG TUBE (12:31)
[2023-09-18] MEDS: SODIUM BICARBONATE 1300 MG TUBE ×3 (12:32→20:34)
--- NOTE | 2023-09-18 12:47 | W.PN.PUL3 ---
Today's Communication / Plan
-
Limit PS wean time as she generally very tachypneic on (RR >30s), anxiety is likely factor
Vent continuously
Tolerating TFs via PEG
Patient would benefit from repeat bronchoscopy prior to transfer to LTAC
Awaiting placement at LTAC
Assessment
-
Mrs Shruti Rockwell is a 62 year old F with history of chronic hypoxic/hypercarbic resp failure s/p trach, post COVID illness, who p/w CC shortness of breath. The patient was recently discharged from 08/25/23 for mucus plugging. Family states that on
day of admission, the patient had decreased responsiveness. She is placed on Trilogy at night/trach collar through the day. She has been sleeping more and less conversive. They have noticed her exhaled TV on Trilogy reporting on avg <200cc
nightly. Her baseline settings are TV 350/PS8/40%/5+. Per medics, the patient was initially on 15 L but desaturated to the 80s. She had to be bagged and her saturations did improve. She is placed on vent in ER and saturations are now improved.
CXR appears similar to prior. We are consulted for eval 09/01/23.
Hypoxemic and hypercapnic respiratory failure due to recurrent mucous plug/left lung atelectasis
ABG 08/17/2023--52/59/7 0.24
Ventilator dependent respiratory failure
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
Status post emergent bronchoscopy at the bedside 08/18/2023-mucous plugs removed from the left
Pneumonia - SCx from 09/04 and BAL from 09/05 growing Serratia marcescens + Pseudomonas aeruginosa
Left pleural effusion
CHINTAN (Cr baseline 2.1)
Anemia-normocytic
Hypocalcemia
Hypernatremia
Metabolic and respiratory acidosis
Conditions present prior to admission:
Chronic hypercapnic/hypoxemic respiratory failure/chronic tracheostomy/nocturnal ventilation.
Severe Covid/ECMO 2019.
Diabetes.
Hypertension.
CAD/angioplasty 2020.
Recurrent UTI.
Ambulatory dysfunction/wheelchair-bound.
Chronic anemia.
Overweight.
Renal calculi.
Laparoscopic cholecystectomy 07/2020. Bilateral ureteroscopy with lithotripsy of the right renal stone and clearing of left renal pelvic fungal ball. Laminectomy. .
Plan/recommendations
No change in respiratory status overnight
No weaning 09/13 due to procedure, has been maintained on assist-control, volume-cycled ventilation
Rapid shallow breathing with use of accessory muscles during trach collar attempts, anxiety is a component
Oxygenation remained stable
Continues to have intermittent secretions.
Suspect critical illness polyneuropathy
Chronic respiratory failure: Patient on trilogy ventilator at home. This admission settings where not optimal.Data from trilogy 08/16/23 showing usage 9.3 avg hours - MV 5.7 L/min - RR 23 - IPAP/EPAP 12.6/4.9 cm water - Avg VTe 249.1 - leak 32.5
L/min
Settings: Mode S, IPAP 13 EPAP 5
Currently dependent on mechanical ventilation 10/10: As above unable to wean the last several days.
Unfortunately has not able to wean on trach collar. Continue tube feeds via PEG tube
Continue mechanical ventilation: On ACV at 16-450-5-0.4
Goal plateau pressure <30
Aspiration precautions
Routine tracheostomy tube care continues
Continue daily trials of weaning, shortened wean time to 2 hours daily
She is not making significant progress
Continue secretion clearance interventions: Persistent left white out despite maximal interventions.
CXR on AM of 09/05 shows persistent L-atelectasis.
Dr Epstein performed bronchoscopy on 09/05 for pulmonary toilet purposes and BAL of LLL --> Cx grew Serratia marcescens + Pseudomonas aeruginosa � follow-up sensitivities
During bronch, there was a mucosal abnormality at her LLL at the secondary fran, which appeared white/shiny --> concern for dysplasia but cytology negative for malignancy.
Maximal secretion clearance interventions ongoing:
Sport bed
Continue VEST/mucomyst trach instillations and alb nebs q6h
DNs changed to alb nebs as above and prn
Chest x-ray 09/11/2023: Reviewed, showed improved aeration on the left but persistent left sided atelectasis.
Repeat chest x-ray 09/17 shows continued significant atelectasis in the left hemithorax, slightly improved compared to last CXR from 09/11/2023 to she would benefit from repeat bronchoscopy prior to her going to LTAC to help optimize her respiratory
status
Bronchoscopy at the bedside Dr. Treviño 09/11/2023:, Tolerated well per no evidence for large airway secretions bilaterally. No endobronchial masses. Secondary fran left lower lobe patchy leukoplakia. Has been biopsied in the past.
Nonobstructive.
Suspect chest x-ray is related to compressive atelectasis, possible some degree of pleural effusion/recovering pneumonia.
Tracheostomy has been exchanged:
Dr. Powell evaluated her on 09/05 --> #[id number] placed on 09/05 ([facility]); please make sure that extra tracheostomy is at bedside.
-
Pneumonia: Resolved. Completed antibiotic therapy
Discontinued antibiotics on 2023: Afebrile. Cultures negative. Fever again on AM of 09/04 --> ABx restarted with cefepime; trach secs culture 09-04 + BAL 09-05 both growing Serratia marcescens + Pseudomonas aeruginosa.
Positive blood culture 08-30 suspect contaminant (Lactob casei)
ID has evaluated the patient, (completed 5 d cefepime 09-08 with levaquin on 09/09)-infectious disease has signed off.
Continue to monitor off antibiotics.
Swallowing dysfunction:
Recurrent microaspiration also has been contemplated in the past. She has been evaluated by speech therapy multiple times in the past. Diet has been modified.
Primary team ordered video barium swallow--> unfortunately patient is not safe to be placed back onto trach collar at this time.
Re-assess daily
-
DVT dddgxcgldgy-xp-qzugg heparin
Early mobilization/bedside range of motion-baseline wheelchair-bound and ambulatory dysfunction
Nutritional support via PEG
DC planning to LTAC if family desires. Dr. Treviño updated her 09/13/2023 need for PEG tube and eventual placement.
Prognosis is very poor long-term. Depending on extent of family desire for aggressive care, hospice may be an option
Continue support as above
The patient was last seen in the pulmonary office by Kalpana Mobley NP 06/01/2023 and has an appointment 09/07/2023 at 10:30 AM --> this will be re-scheduled.
Can eval for discharge planning once Trilogy issue resolved and new pneumonia effectively treated.
Disposition efforts
Total time spent today was 50 minutes for this encounter. Time includes reviewing laboratory test/imaging results, reviewing pertinent medical records, obtaining and reviewing medical history, performing an appropriate exam, ordering medications,
tests and procedures. Time also includes documentation of this encounter, coordinating patient care and communicating with other healthcare professionals. Total time does not include separately billed tests performed on this date of service.
Diagnostic Data:
CXR 04-27, reviewed, L basilar atelectasis
CXR 04-19, resolved total L atelectasis, currently back to chronic L basilar atelectasis. New tracheostomy
CXR 04-16, portable, L basilar atelectasis
CXR 04/11/22- . Complete opacification of the left hemithorax, likely on the basis of a large pleural effusion and compressive atelectasis upon the left lung. Mild right basilar pneumonia suspected
Chest x-ray 08/17/2023-near complete opacification throughout the left Jovanni thorax
Chest 09-18-2023: Interval removal of enteric tube; No significant interval change compared to the prior x-ray with near complete opacification of left hemithorax secondary to atelectasis and pleural fluid. Diffusely increased interstitial opacities
within the right lung with small amount of likely loculated pleural fluid.
Echocardiogram 01/10/22-EF 60-65%, no significant valvular disease, small pericardial effusion
Echocardiogram 03/22/22: Normal left ventricular chamber size. Normal left ventricular systolic�function. Normal regional wall motion. Normal left ventricular wall thickness.�Left ventricular ejection fraction is 60-65%. Mild tricuspid
regurgitation.�Small to moderate pericardial effusion without evidence of hemodynamic�compromise.�Compared to the previous echo Dec 2021, there is no significant change.
CT CHEST 04/11/22- �A moderate to large left pleural effusion and complete collapse/atelectasis of the left lung account for the left hemithorax opacification on the prior chest radiograph. Findings are in part likely secondary to mucous plugging
given the presence of opacification of the left mainstem bronchus and left upper and lower lobe bronchi, patchy opacifications right middle and lower lobe suspicious for pneumonia, moderate right pleural effusion and ill-defined sclerotic lesion
T12, osseous metastasis not completely excluded
CT CHEST 03/22/22 - There is no CT evidence for pulmonary embolism. No aortic dissection.There are extremely large bilateral pleural effusions right greater than left and associated bilateral consolidation most prominent in the left lower
lobe.Cardiomegaly. Increased pericardial effusion.
CT chest 08/17/2023-occluded left mainstem bronchus presumably mucous plugs with complete atelectasis left lung moderate size left pleural effusion, small to moderate right pleural effusion
VSE 04/28/22: No aspiration. Laryngeal penetration with cough with thin liquids by cup.
Spirometry 09/09/21-FEV1 790 mL-36%, FVC 790 mL 27%. Some difficulties with maneuver and thus may offer unreliability. Severe restriction.�������
PFT 02/08/22-FVC 1.01/30%, FEV1 0.70/35%, ratio 69%, unable to perform lung volumes and diffusing capacity.
Subjective Data
-
Date of Service:
Date of Service: September 18, 2023
Chief Complaint: Pulmonary Follow Up (Acute respiratory failure/mucous plugging.)
Subjective:
No acute events reported from overnight. Afebrile overnight. Remains intubated via tracheostomy on VC/CMV on 450/16/40%/5, and she is breathing at 21 breaths/min, with PIP of 21 cmH2O and VTe of 454 mL.
Review of Systems
General: Other (Negative unless mentioned above.)
Objective Data
Data Reviewed
Vital Signs / I&O / Oxygen:
Vital Signs
Temp Pulse Resp BP Pulse Ox
98.5 F 103 20 175/82 97
09/18/23 03:21 09/18/23 12:30 09/18/23 10:00 09/18/23 12:30 09/18/23 10:20
Intake and Output
09/17/23 09/18/23 09/19/23
06:59 06:59 06:59
Intake Total 2054 1020 / 1020
Balance 2054 1020 / 1020
SaO2 [CPAP/PSV] 96
SaO2 [A/C] 98
SaO2 97
Physical Exam
General: Comfortable
HEENT: Normocephalic, Anicteric and Tracheotomy
Cardiovascular: S1-S2, Murmur (n), Rub (n) and Peripheral Edema (Trace edema)
Respiratory: Wheeze (Negative), Crackles (Bilaterally), Rhonchi (Bilaterally (L >R)), Non-Labored Respirations, Other (Mechanical breath sounds heard bilaterally) and Other (Tracheotomy)
GI: Soft, Non Distended, Non Tender, Normal Bowel Sounds and Feeding Tube (PEG)
Neurology: Awake (Eyes open) and No Motor Deficits
Skin: Cyanosis (n), Jaundice (n) and Rash (n)
Labs/Micro/Reports
Lab Data
09/18/23 04:50
[2023-09-18 12:56] LABS: Glucose - Point of Care 203 mg/dl (70-99)
[2023-09-18] MEDS: NOVOLOG FLEXPEN-LOW RESISTANCE 2 UNITS SC (13:01)
[2023-09-18 14:32] LABS: Potassium 5.3 mmol/L (3.5-5.1)
--- NOTE | 2023-09-18 14:33 | CM ---
Addendum entered by Martha Freeman 09/18/23 16:14:
Unable to open secured email per Estrellita
Request and clinicals emailed securely to [employer] plumbing manager [email or web address]
Original Note:
CM reviewed chart and pt with Dr Bishop- ready for dc pending LTACH placement
Call with [facility] to follow up on pending auth request for [facility]
Noted referral and clinicals still have not been received
CM faxed for 5th time and [facility] noted did not receive 5th fax ([phone])
[facility]/Estrellita(p [phone]) received one-time approval for request and clinicals to be emailed
Emailed securely to [email or web address]
Of note-Estrellita only covering today, plan to follow up on general number for follow up come tomorrow at [phone]
Update to [facility] Kerns/[facility] liaison (p [phone])- updated clinicals sent via [facility] per request
Dtr noted pt's I[facility] plan has terminated and pt now with new [facility] policy
Also pt now with Medicare A/B effective 09/17
Copies of cards on chart
Medicare A/B [id number]
[facility] PPO new policy # [id number]
Discharge Disposition- [facility] pending auth
--- NOTE | 2023-09-18 18:05 | PTCARENOTE ---
No acute events throughout the day. Pt with large amounts of liquid stools, aware, stool specimen sent for CDiff evaluation, results negative. Pt's family at the bedside working with case management for pt d/c planning. Pt remains comfortable
with current vent settings, see flowsheet. Pt resting comfortably at this time, pt's family without questions.
[2023-09-18 18:11] LABS: Glucose - Point of Care 180 mg/dl (70-99)
[2023-09-18] MEDS: LIPITOR 20 MG TUBE (20:34)
[2023-09-18] MEDS: CARDURA 1 MG TUBE (20:34)
[2023-09-18] MEDS: LANTUS 0.15 UNITS SC (23:08)
[2023-09-18] MEDS: HEPARIN 5000 UNITS SC (23:08)
[2023-09-18 23:24] LABS: Glucose - Point of Care 152 mg/dl (70-99)
[2023-09-19] VITALS (14 sets, daily range): BP systolic 146–181; BP diastolic 61–109; BMI 26.8
[2023-09-19] MEDS: ROBITUSSIN 200 MG TUBE ×4 (01:01→20:56)
--- NOTE | 2023-09-19 03:04 | SUR.OPER ---
no acute events so far overnight. pt remains on a/c vent- 40%/16/450/5. oxygen 96%. trach suctioned a few times for pink/bloody secretions. full bath given, pt incontinent of bowel and bladder. tube feeds infusing into left peg tube- osmolite 1.2
@60ml/hr 25ml/hr flush. stage 3 on sacrum foam intact. pt able to nod head appropriately and mouth words without issues. care ongoing.
--- NOTE | 2023-09-19 03:08 | PTCARENOTE ---
no acute events so far overnight. pt remains on a/c vent- 40%/16/450/5. oxygen 96%. trach suctioned a few times for pink/bloody secretions. full bath given, pt incontinent of bowel and bladder. tube feeds infusing into left peg tube- osmolite 1.2
@60ml/hr 25ml/hr flush- tube feeds increased to goal of 70ml/hr. stage 3 on sacrum foam intact. pt able to nod head appropriately and mouth words without issues. care ongoing.
[2023-09-19 05:31] LABS: Blood Urea Nitrogen 45 mg/dl (7-17); Calcium 8.3 mg/dl (8.4-10.2); Carbon Dioxide 30 mmol/L (22-30); Chloride 105 mmol/L (98-107); Estimated Creatinine Clearance 27 ml/min; Glucose 163 mg/dl (70-99); Potassium 5.5 mmol/L (3.5-5.1); Sodium 140 mmol/L (135-145); eGFR 29.12
[2023-09-19] MEDS: NOVOLOG FLEXPEN-LOW RESISTANCE 1 UNITS SC ×2 (05:50→23:57)
[2023-09-19 06:00] LABS: Glucose - Point of Care 189 mg/dl (70-99)
[2023-09-19] MEDS: LOW STRENGTH ASPIRIN 81 MG TUBE (08:04)
[2023-09-19] MEDS: DESENEX/MITRAZOL/ZEASORB 1 APPLIC TOPICAL ×2 (08:04→20:56)
[2023-09-19] MEDS: VITAMIN D3 (cholecalciferol) 25 MCG TUBE (08:05)
[2023-09-19] MEDS: SODIUM BICARBONATE 1300 MG TUBE (08:05)
[2023-09-19] MEDS: POLYSPORIN OINTMENT 1 APPLIC TOPICAL (08:05)
[2023-09-19] MEDS: VITAMIN B-12 1000 MCG TUBE (08:06)
[2023-09-19] MEDS: LOPRESSOR 50 MG TUBE ×2 (08:07→20:58)
[2023-09-19] MEDS: FEOSOL 325 MG TUBE (08:08)
[2023-09-19] MEDS: LASIX 20 MG TUBE (08:08)
[2023-09-19] MEDS: HEPARIN 5000 UNITS SC ×3 (08:09→23:56)
[2023-09-19] MEDS: NORVASC 10 MG TUBE (08:09)
--- NOTE | 2023-09-19 10:19 | W.PN.HOSP.TC ---
Today's Communication/Plan
-
[facility] today
Await Bed availability at LT
Assessment / Plan
Assessment / Plan
62-year-old female with chronic tracheostomy uses ventilator at night and trach collar during the day. She was admitted recently and was discharged on 08/25/2023 but she was admitted with acute on chronic hypoxic hypercapnic respiratory failure with
opacification of the left hemithorax. Patient underwent bronchoscopy on 08/18/2023 mucous plugs removed from the left. BAL grew Proteus and completed 7-day course of Unasyn per ID. She also had CHINTAN with CKD stage IV FLAVIO inhibitor was held.
Ultrasound of the kidney showed bilateral renal disease. She comes back with decreased responsiveness.
Awake and alert
Responds to questions
CVS S1 S2 Normal
Chest Decreased bases
Abd Peg Tube
LE no edema
09/06/23 15:39 Bronch Left Lower Lobe Respiratory Culture - Final
Serratia marcescens
Pseudomonas aeruginosa
09/05/23 13:11 Tracheal Aspirate Respiratory Culture - Final
Serratia marcescens
Pseudomonas aeruginosa
Echo 08/18/23: EF 60 to 65%. Mild concentric LVH. Normal diastolic function. Normal RV size and function. Mild TR. Pulmonary pressure 30 cm of mercury. Small pericardial effusion without hemodynamic compromise
EGD (during PEG placement) 09/14/23: Normal esophagus. Scar in the greater curvature of the stomach. Normal examined duodenum. An externally removable PEG placement was successfully completed. No specimens collected.
#Acute on chronic hypercapnic/hypoxemic respiratory failure:
-With acute respiratory acidosis on admission
-SPECIAL EFFECTS ARTIST the patient's tidal volume has decreased to an average of less than 200cc nightly (will be rectified with [employer]).
-continues on ATC ACMV
-Wean as tolerated during day time
-VSE when patient can be on a trach collar
-s/p bronchoscopy 09/06/23
-ENT saw in consult and placed #6 Shiley (Sergei) on 09/06/2023 as there was concern for air leak
-Respiratory cultures with pseudomonas and Serratia (treated as aspiration PNA)
-chest PT
-appreciate ID, pt completed 5 days cefepime. Patient to start renally dosed Levofloxacin if relapses/develops fever.
-Repeat Bronchoscopy 09/11/23 was unremarkable (no secretions, masses, or mucous plugging)
#Acute metabolic encephalopathy on admission (and intermittent since):
-EEG, CT of the head all negative
-likely due to inadequate TV at home causing acute on chronic hypercapnic and hypoxemic respiratory failure with acute respiratory acidosis (on 30/07 at home as per family)
#Anemia of chronic disease and Fe deficiency: s/p 4 units of pRBCs
#One set of BCx with lactobacillus Casei: Likely contaminant
#Femoral line removed and Right IJ placed 09/07/23
#Hypokalemia and hyperkalemia: resolved s/p rectal Kayexalate, D50W/insulin, Lokelma. K now 5.2. cont Lokelma M/W/F.Additional dose 09/19/23
#Hypomagnesemia, resolved
#Hypocalcemia- Normal Vit D level
#Positive LILIAN Screen: OP Rheum Eval
#CKD4, Cr at baseline. Sodium bicarb
#DM2: cont SSI/accuchecks/Lantus
#h/o small to moderate pericardial effusion
#Essential hypertension: cont Norvasc/doxazosin.
#Hyperlipidemia: Continue statin
#Coronary artery disease status post angioplasty: cont ASA/BB
#h/o C. diff.Negative this admit
#COVID pneumonia 2019 with ECMO and ventilator and 3-month hospital stay at [facility]
#Ambulatory dysfunction, wheelchair-bound since June 2019
#Spinal stenosis
#Overweight per BMI criteria
#Hypoalbuminemia
#Nutrition: s/p PEG 09/14/23. TFs started, now 60cc/hr.
#DVT Prophylaxis- SC Heparin
#FULL CODE
Pt's updated at bedside.
Discussed with RN at bed side
Anticipated Discharge: Within 24 hours
Subjective/Interval History
-
Date of Service: September 19, 2023
Objective Data
-
Labs:
Laboratory Results
09/19/23
04:58
Sodium 140
Potassium 5.5 H
Chloride 105
Carbon Dioxide 30
BUN 45 H
Creatinine 1.9 H
Glucose 163 H
Calcium 8.3 L
Vital Signs:
Vital Signs
Temp Pulse Resp BP Pulse Ox
98.3 F 95 22 165/73 89
09/19/23 07:35 09/19/23 08:09 09/19/23 06:00 09/19/23 08:09 09/19/23 06:00
I&O
09/18/23 09/19/23 09/20/23
06:59 06:59 06:59
Intake Total 1020 / 1020
Balance 1020 / 1020
[2023-09-19] MEDS: LOKELMA 10 GRAM TUBE (10:23)
[2023-09-19 11:11] LABS: Glucose - Point of Care 224 mg/dl (70-99)
[2023-09-19] MEDS: NOVOLOG FLEXPEN-LOW RESISTANCE 2 UNITS SC ×2 (11:50→17:49)
--- NOTE | 2023-09-19 12:18 | W.PN.PUL3 ---
Today's Communication / Plan
-
Limit PS wean time as she generally very tachypneic on (RR >30s), anxiety is likely factor
Vent continuously with daily weaning trials as tolerated
REsume DuoNebs BID with chest PT with cofflator +/- vest and suctioning as needed
Tolerating TFs via PEG
Patient would benefit from repeat bronchoscopy prior to transfer to LTAC
Awaiting placement at LTAC
Assessment
-
Mrs Shruti Rockwell is a 62 year old F with history of chronic hypoxic/hypercarbic resp failure s/p trach, post COVID illness, who p/w CC shortness of breath. The patient was recently discharged from 08/25/23 for mucus plugging. Family states that on
day of admission, the patient had decreased responsiveness. She is placed on Trilogy at night/trach collar through the day. She has been sleeping more and less conversive. They have noticed her exhaled TV on Trilogy reporting on avg <200cc
nightly. Her baseline settings are TV 350/PS8/40%/5+. Per medics, the patient was initially on 15 L but desaturated to the 80s. She had to be bagged and her saturations did improve. She is placed on vent in ER and saturations are now improved.
CXR appears similar to prior. We are consulted for eval 09/01/23.
Impression:
Hypoxemic and hypercapnic respiratory failure due to recurrent mucous plug/left lung atelectasis
ABG 08/17/2023--52/59/7 0.24
Ventilator dependent respiratory failure
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
Status post emergent bronchoscopy at the bedside 08/18/2023-mucous plugs removed from the left
Pneumonia - SCx from 09/04 and BAL from 09/05 growing Serratia marcescens + Pseudomonas aeruginosa
Left pleural effusion
CHINTAN (Cr baseline 2.1)
Anemia-normocytic
Hypocalcemia
Hypernatremia
Metabolic and respiratory acidosis
Conditions present prior to admission:
Chronic hypercapnic/hypoxemic respiratory failure/chronic tracheostomy/nocturnal ventilation.
Severe Covid/ECMO 2019.
Diabetes.
Hypertension.
CAD/angioplasty 2020.
Recurrent UTI.
Ambulatory dysfunction/wheelchair-bound.
Chronic anemia.
Overweight.
Renal calculi.
Laparoscopic cholecystectomy 07/2020. Bilateral ureteroscopy with lithotripsy of the right renal stone and clearing of left renal pelvic fungal ball. Laminectomy. .
Plan/recommendations
No change in respiratory status overnight
No weaning 09/13 due to procedure, has been maintained on assist-control, volume-cycled ventilation
Rapid shallow breathing with use of accessory muscles during trach collar attempts, anxiety is a component
Oxygenation remained stable
Continues to have intermittent secretions.
Suspect critical illness polyneuropathy
Chronic respiratory failure: Patient on trilogy ventilator at home. This admission settings where not optimal.Data from trilogy 08/16/23 showing usage 9.3 avg hours - MV 5.7 L/min - RR 23 - IPAP/EPAP 12.6/4.9 cm water - Avg VTe 249.1 - leak 32.5
L/min
Settings: Mode S, IPAP 13 EPAP 5
Currently dependent on mechanical ventilation 10/10: As above unable to wean the last several days.
Unfortunately has not able to wean down to trach collar as pt unable to tolerate PST for >1 hr. Continue tube feeds via PEG tube
Continue mechanical ventilation: On ACV at 16-450-5-0.4
Goal plateau pressure <30
Aspiration precautions
Routine tracheostomy tube care continues
Continue daily trials of weaning, shortened wean time to 1-2 hours daily
She is not making significant progress
Continue secretion clearance interventions: Persistent left white out despite maximal interventions.
CXR on AM of 09/05 shows persistent L-atelectasis.
Dr Epstein performed bronchoscopy on 09/05 for pulmonary toilet purposes and BAL of LLL --> Cx grew Serratia marcescens + Pseudomonas aeruginosa � follow-up sensitivities
During bronch, there was a mucosal abnormality at her LLL at the secondary fran, which appeared white/shiny --> concern for dysplasia but cytology negative for malignancy.
Maximal secretion clearance interventions ongoing:
Sport bed
Continue VEST/cofflator with trach instillations with mucomyst and alb nebs q6h
DNs with prn doses for in between
Chest x-ray 09/11/2023: Reviewed, showed improved aeration on the left but persistent left sided atelectasis.
Repeat chest x-ray 09/17 shows continued significant atelectasis in the left hemithorax, slightly improved compared to last CXR from 09/11/2023 to she would benefit from repeat bronchoscopy prior to her going to LTAC to help optimize her respiratory
status
Bronchoscopy at the bedside Dr. Treviño 09/11/2023:, Tolerated well per no evidence for large airway secretions bilaterally. No endobronchial masses. Secondary fran left lower lobe patchy leukoplakia. Has been biopsied in the past.
Nonobstructive.
Suspect chest x-ray is related to compressive atelectasis, possible some degree of pleural effusion/recovering pneumonia.
Tracheostomy has been exchanged:
Dr. Powell evaluated her on 09/05 --> #[id number] placed on 09/05 ([facility]); please make sure that extra tracheostomy is at bedside.
-
Pneumonia: Resolved. Completed antibiotic therapy
Discontinued antibiotics on 2023: Afebrile. Cultures negative. Fever again on AM of 09/04 --> ABx restarted with cefepime; trach secs culture 09-04 + BAL 09-05 both growing Serratia marcescens + Pseudomonas aeruginosa.
Positive blood culture 08-30 suspect contaminant (Lactob casei)
ID has evaluated the patient, (completed 5 d cefepime 09-08 with levaquin on 09/09)-infectious disease has signed off.
Continue to monitor off antibiotics.
Swallowing dysfunction:
Recurrent microaspiration also has been contemplated in the past. She has been evaluated by speech therapy multiple times in the past. Diet has been modified.
Primary team ordered video barium swallow--> unfortunately patient is not safe to be placed back onto trach collar at this time.
Re-assess daily
-
DVT prophylaxis-heparin SQ
Early mobilization/bedside range of motion-baseline wheelchair-bound and ambulatory dysfunction
Nutritional support via PEG
DC planning to LTAC. Dr. Treviño updated her 09/13/2023 need for PEG tube and eventual placement.
Prognosis is very poor long-term. Depending on extent of family desire for aggressive care, hospice may be an option
Continue support as above
The patient was last seen in the pulmonary office by Kalpana Mobley NP 06/01/2023 and has an appointment 09/07/2023 at 10:30 AM --> this will be re-scheduled.
Disposition efforts
Total time spent today was 50 minutes for this encounter. Time includes reviewing laboratory test/imaging results, reviewing pertinent medical records, obtaining and reviewing medical history, performing an appropriate exam, ordering medications,
tests and procedures. Time also includes documentation of this encounter, coordinating patient care and communicating with other healthcare professionals. Total time does not include separately billed tests performed on this date of service.
Diagnostic Data:
CXR 04-27, reviewed, L basilar atelectasis
CXR 04-19, resolved total L atelectasis, currently back to chronic L basilar atelectasis. New tracheostomy
CXR 04-16, portable, L basilar atelectasis
CXR 04/11/22- . Complete opacification of the left hemithorax, likely on the basis of a large pleural effusion and compressive atelectasis upon the left lung. Mild right basilar pneumonia suspected
Chest x-ray 08/17/2023-near complete opacification throughout the left Jovanni thorax
Chest 09-18-2023: Interval removal of enteric tube; No significant interval change compared to the prior x-ray with near complete opacification of left hemithorax secondary to atelectasis and pleural fluid. Diffusely increased interstitial opacities
within the right lung with small amount of likely loculated pleural fluid.
Echocardiogram 01/10/22-EF 60-65%, no significant valvular disease, small pericardial effusion
Echocardiogram 03/22/22: Normal left ventricular chamber size. Normal left ventricular systolic�function. Normal regional wall motion. Normal left ventricular wall thickness.�Left ventricular ejection fraction is 60-65%. Mild tricuspid
regurgitation.�Small to moderate pericardial effusion without evidence of hemodynamic�compromise.�Compared to the previous echo Dec 2021, there is no significant change.
CT CHEST 04/11/22- �A moderate to large left pleural effusion and complete collapse/atelectasis of the left lung account for the left hemithorax opacification on the prior chest radiograph. Findings are in part likely secondary to mucous plugging
given the presence of opacification of the left mainstem bronchus and left upper and lower lobe bronchi, patchy opacifications right middle and lower lobe suspicious for pneumonia, moderate right pleural effusion and ill-defined sclerotic lesion
T12, osseous metastasis not completely excluded
CT CHEST 03/22/22 - There is no CT evidence for pulmonary embolism. No aortic dissection.There are extremely large bilateral pleural effusions right greater than left and associated bilateral consolidation most prominent in the left lower
lobe.Cardiomegaly. Increased pericardial effusion.
CT chest 08/17/2023-occluded left mainstem bronchus presumably mucous plugs with complete atelectasis left lung moderate size left pleural effusion, small to moderate right pleural effusion
VSE 04/28/22: No aspiration. Laryngeal penetration with cough with thin liquids by cup.
Spirometry 09/09/21-FEV1 790 mL-36%, FVC 790 mL 27%. Some difficulties with maneuver and thus may offer unreliability. Severe restriction.�������
PFT 02/08/22-FVC 1.01/30%, FEV1 0.70/35%, ratio 69%, unable to perform lung volumes and diffusing capacity.
Subjective Data
-
Date of Service:
Date of Service: September 19, 2023
Chief Complaint: Pulmonary Follow Up (Acute respiratory failure/mucous plugging.)
Subjective:
No acute events reported overnight. Currently on mechanical ventilation via tracheostomy on VC/AC on 16/450/40%/5, breathing at 16 breaths/min with PIP 35 cmH2O and VTe of 350 mL. She failed SBT earlier after about 1 hour due to tachypnea.
Current BP 165/80, heart rate 100 and SpO2 96%.
Review of Systems
General: Other (Unable to obtain given patient's clinical status)
Objective Data
Data Reviewed
Vital Signs / I&O / Oxygen:
Vital Signs
Temp Pulse Resp BP Pulse Ox
98.3 F 75 20 159/61 94
09/19/23 07:35 09/19/23 10:00 09/19/23 10:00 09/19/23 10:00 09/19/23 10:00
Intake and Output
09/18/23 09/19/23 09/20/23
06:59 06:59 06:59
Intake Total 1020 / 1020
Balance 1020 / 1020
SaO2 [CPAP/PSV] 96
SaO2 [A/C] 98
SaO2 94
Physical Exam
General: Comfortable
HEENT: Normocephalic, Anicteric and Tracheotomy
Cardiovascular: S1-S2, Murmur (n), Rub (n) and Peripheral Edema (Trace edema)
Respiratory: Wheeze (Negative), Crackles (Bilaterally), Rhonchi (Bilaterally (L >R)), Non-Labored Respirations, Other (Mechanical breath sounds heard bilaterally) and Other (Tracheotomy)
GI: Soft, Non Distended, Non Tender, Normal Bowel Sounds and Feeding Tube (PEG)
Neurology: Awake (Eyes open) and No Motor Deficits
Skin: Cyanosis (n), Jaundice (n) and Rash (n)
Labs/Micro/Reports
Lab Data
09/18/23 04:50
09/19/23 04:58
Microbiology
09/18/23 12:58 Feces/Stool C. difficile GDH Antigen & Toxins - Final
Negative for toxigenic C.difficile
09/06/23 15:39 Bronch Left Lower Lobe Fungal Culture - Preliminary
Culture in progress.
Positive cultures are reported as soon as detected.
Final report to follow in four to five weeks.
--- NOTE | 2023-09-19 15:48 | PTCARENOTE ---
Patient tolerated 1 hour with vent in pressure support settings before becoming tachypneic in the 40's and tachycardic in the 120's. Pt stated she felt anxious and she felt relief when placed back in original PRVC settings. RR and HR normalized
shortly after being placed back on PRVC settings.
--- NOTE | 2023-09-19 16:06 | CM ---
CM called [facility] [phone] who confirmed LTACH request and clinicals received
Estrellita ([phone]) and Katya ([phone]) are assigned LTACH reviewers for the week
Pending case# [id number]
Call from [facility]/Clinical Trial Manager Dr Elmer Carvajal ([phone])
Noted based on clincials, auth would be denied
Requesting additional conversation with pulmonary regarding vent weaning plan not later than 5pm today
TT/Dr Epstein and Dr Lambert haque will call today to further discuss with [facility]
CM to remain available for dc planning
Discharge Disposition0 [facility] pending auth
[2023-09-19 18:00] LABS: Glucose - Point of Care 202 mg/dl (70-99)
[2023-09-19] MEDS: DUONEB 3 ML INH (19:50)
[2023-09-19] MEDS: CARDURA 1 MG TUBE (20:56)
[2023-09-19] MEDS: LANTUS 0.15 UNITS SC (20:56)
[2023-09-19] MEDS: LIPITOR 20 MG TUBE (20:56)
[2023-09-19] MEDS: SODIUM BICARBONATE 650 MG TUBE (20:56)
[2023-09-20] VITALS (10 sets, daily range): BP systolic 119–172; BP diastolic 52–81
[2023-09-20 00:06] LABS: Glucose - Point of Care 186 mg/dl (70-99)
[2023-09-20] MEDS: ROBITUSSIN 200 MG TUBE ×4 (01:52→19:13)
[2023-09-20] MEDS: NOVOLOG FLEXPEN-LOW RESISTANCE 1 UNITS SC ×2 (05:32→18:27)
[2023-09-20 05:42] LABS: Glucose - Point of Care 159 mg/dl (70-99)
--- NOTE | 2023-09-20 05:48 | PTCARENOTE ---
NO acute events overnight. Afebrile. Remained the vent.
[2023-09-20] MEDS: DUONEB 3 ML INH ×2 (07:53→20:46)
[2023-09-20] MEDS: HEPARIN 5000 UNITS SC ×3 (08:34→23:43)
[2023-09-20] MEDS: FEOSOL 325 MG TUBE (08:35)
[2023-09-20] MEDS: POLYSPORIN OINTMENT 1 APPLIC TOPICAL (08:35)
[2023-09-20] MEDS: LASIX 40 MG TUBE (08:35)
[2023-09-20] MEDS: NORVASC 10 MG TUBE (08:36)
[2023-09-20] MEDS: LOW STRENGTH ASPIRIN 81 MG TUBE (08:36)
[2023-09-20] MEDS: VITAMIN D3 (cholecalciferol) 25 MCG TUBE (08:36)
[2023-09-20] MEDS: VITAMIN B-12 1000 MCG TUBE (08:36)
[2023-09-20] MEDS: SODIUM BICARBONATE 650 MG TUBE ×2 (08:36→19:13)
[2023-09-20] MEDS: LOPRESSOR 50 MG TUBE ×2 (08:36→19:13)
[2023-09-20] MEDS: DESENEX/MITRAZOL/ZEASORB 1 APPLIC TOPICAL ×2 (08:37→19:13)
--- NOTE | 2023-09-20 09:12 | W.PN.NEPH.PH ---
Today's Communication / Plan
-
lokelma MWF
Assessment/Plan
-
Assessment:
Hyperkalemia
CKD (Cr baseline 2.1-2.6)
NAGMA
acute on chronic hypercapnic/hypoxemic respiratory failure
Anemia of chronic disease
T2DM
moderate pericardial effusion
HTN
DLDC.diff
Amb dysfunction
h/o kidney stones with stent placement in the past
Hypoalbuminemia
Plan:
lasix 40mg daily
lokelma will be added back for hyperkalemia
reduce bicarb
follow BMP
-
-
Date of Service: September 19, 2023
CC / HPI / ROS
-
Chief Complaint:
hyperkalemia
History of Present Illness:
K 5.5
Cr stable 1.9
hgb stable low
Review of Systems:
trach collar in place
TF 60/25 without issue
Labs
-
Labs:
WBC 8.8 10^3/uL (4.8-10.8) 09/18/23 04:50
RBC 3.38 10^6/uL (4.20-5.40) L 09/18/23 04:50
Hgb 9.7 g/dL (12.0-16.0) L 09/18/23 04:50
Hct 31.2 % (37.0-47.0) L 09/18/23 04:50
Plt Count 228 10^3/uL (130-400) 09/18/23 04:50
eGFR 29.12 09/19/23 04:58
Phosphorus 5.3 mg/dl (2.5-4.5) H 09/17/23 04:41
Hrp-P-Allctonraxd Pept 64747 pg/ml 09/11/23 04:57
Albumin 2.5 g/dl (3.5-5.0) L 08/31/23 20:18
Physical Exam
-
Vital Signs:
Vital Signs
Temp Pulse Resp BP Pulse Ox
98.2 F 83 16 146/72 95
09/20/23 03:59 09/20/23 08:00 09/20/23 08:00 09/20/23 08:00 09/20/23 08:00
Cardiovascular:: Regular rate and rhythm
Respiratory:: Bilateral: Coarse
Lung Excursion:: Normal
Abdomen:: Nontender and Soft
Bowel Sounds:: Normal
Extremity Edema:: None: Bilateral:
--- NOTE | 2023-09-20 09:41 | W.PN.HOSP.TC ---
Today's Communication/Plan
-
BMP pending
Medically stable for discharge to LTAC
Assessment / Plan
Assessment / Plan
62-year-old female with chronic tracheostomy uses ventilator at night and trach collar during the day. She was admitted recently and was discharged on 08/25/2023 but she was admitted with acute on chronic hypoxic hypercapnic respiratory failure with
opacification of the left hemithorax. Patient underwent bronchoscopy on 08/18/2023 mucous plugs removed from the left. BAL grew Proteus and completed 7-day course of Unasyn per ID. She also had CHINTAN with CKD stage IV FLAVIO inhibitor was held.
Ultrasound of the kidney showed bilateral renal disease. She comes back with decreased responsiveness.
Awake and alert
Responds to questions
CVS S1 S2 Normal
Chest Decreased bases
Abd Peg Tube
LE no edema
Hesitant to move arms or do anything.
09/06/23 15:39 Bronch Left Lower Lobe Respiratory Culture - Final
Serratia marcescens
Pseudomonas aeruginosa
09/05/23 13:11 Tracheal Aspirate Respiratory Culture - Final
Serratia marcescens
Pseudomonas aeruginosa
Echo 08/18/23: EF 60 to 65%. Mild concentric LVH. Normal diastolic function. Normal RV size and function. Mild TR. Pulmonary pressure 30 cm of mercury. Small pericardial effusion without hemodynamic compromise
EGD (during PEG placement) 09/14/23: Normal esophagus. Scar in the greater curvature of the stomach. Normal examined duodenum. An externally removable PEG placement was successfully completed. No specimens collected.
#Acute on chronic hypercapnic/hypoxemic respiratory failure:
-With acute respiratory acidosis on admission
-C S S REPRESENTATIVE the patient's tidal volume has decreased to an average of less than 200cc nightly (will be rectified with VenJuvo).
-continues on ATC ACMV
-Wean as tolerated during day time-1 hour yesteray
-VSE when patient can be on a trach collar
-s/p bronchoscopy 09/06/23
-ENT saw in consult and placed #6 Romero Wynne) on 09/06/2023 as there was concern for air leak
-Respiratory cultures with pseudomonas and Serratia (treated as aspiration PNA)
-chest PT
-appreciate ID, pt completed 5 days cefepime. Patient to start renally dosed Levofloxacin if relapses/develops fever.
-Repeat Bronchoscopy 09/11/23 was unremarkable (no secretions, masses, or mucous plugging)
#Acute metabolic encephalopathy on admission (and intermittent since):
-EEG, CT of the head all negative
-likely due to inadequate TV at home causing acute on chronic hypercapnic and hypoxemic respiratory failure with acute respiratory acidosis (on 30/07 at home as per family)
#Anemia of chronic disease and Fe deficiency: s/p 4 units of pRBCs
#One set of BCx with lactobacillus Casei: Likely contaminant
#Femoral line removed and Right IJ placed 09/07/23
#Hypokalemia and hyperkalemia: resolved s/p rectal Kayexalate, D50W/insulin, Lokelma. K now 5.2. cont Lokelma M/W/F.Additional dose given 09/19/23
#Hypomagnesemia, resolved
#Hypocalcemia- Normal Vit D level
#Positive LILIAN Screen: OP Rheum Eval
#CKD4, Cr at baseline. Sodium bicarb
#DM2: cont SSI/accuchecks/Lantus
#h/o small to moderate pericardial effusion
#Essential hypertension: cont Norvasc/doxazosin.
#Hyperlipidemia: Continue statin
#Coronary artery disease status post angioplasty: cont ASA/BB
#h/o C. diff.Negative this admit
#COVID pneumonia 2019 with ECMO and ventilator and 3-month hospital stay at [place]
#Ambulatory dysfunction, wheelchair-bound since June 2019
#Spinal stenosis
#Overweight per BMI criteria
#Hypoalbuminemia
#Nutrition: s/p PEG 09/14/23. TFs started, now 60cc/hr.
#DVT Prophylaxis- SC Heparin
#FULL CODE
Pt's daughter updated at bedside.
Discussed with RN
Anticipated Discharge: Within 24 hours
Subjective/Interval History
-
Date of Service: September 20, 2023
Objective Data
-
Labs:
Laboratory Results
09/20/23
08:47
Sodium Pending
Potassium Pending
Chloride Pending
Carbon Dioxide Pending
BUN Pending
Creatinine Pending
Glucose Pending
Calcium Pending
Vital Signs:
Vital Signs
Temp Pulse Resp BP Pulse Ox
98.2 F 83 16 146/72 95
09/20/23 03:59 09/20/23 08:00 09/20/23 08:00 09/20/23 08:00 09/20/23 08:00
I&O
09/19/23 09/20/23 09/21/23
06:59 06:59 06:59
Intake Total 1140 / 1140
Balance 1140 / 1140
--- NOTE | 2023-09-20 09:46 | W.PN.NEPH.PH ---
Today's Communication / Plan
-
labs
Assessment/Plan
-
Assessment:
Hyperkalemia
CKD (Cr baseline 2.1-2.6)
NAGMA
acute on chronic hypercapnic/hypoxemic respiratory failure
Anemia of chronic disease
T2DM
moderate pericardial effusion
HTN
DLDC.diff
Amb dysfunction
h/o kidney stones with stent placement in the past
Hypoalbuminemia
Plan:
lasix 40mg daily
lokelma MWF
reduced bicarb
follow BMP
d/w family
-
-
Date of Service: September 20, 2023
CC / HPI / ROS
-
Chief Complaint:
hyperkalemia
History of Present Illness:
K 5.5 yesterday
Cr stable 1.9 yesterday
hgb stable low yesterday
labs not yet drawn today
BP stable
Review of Systems:
trach collar in place
TF 60/25 without issue
Labs
-
Labs:
WBC 8.8 10^3/uL (4.8-10.8) 09/18/23 04:50
RBC 3.38 10^6/uL (4.20-5.40) L 09/18/23 04:50
Hgb 9.7 g/dL (12.0-16.0) L 09/18/23 04:50
Hct 31.2 % (37.0-47.0) L 09/18/23 04:50
Plt Count 228 10^3/uL (130-400) 09/18/23 04:50
eGFR 29.12 09/19/23 04:58
Phosphorus 5.3 mg/dl (2.5-4.5) H 09/17/23 04:41
Lul-T-Pjsnzkaomze Pept 44763 pg/ml 09/11/23 04:57
Albumin 2.5 g/dl (3.5-5.0) L 08/31/23 20:18
Physical Exam
-
Vital Signs:
Vital Signs
Temp Pulse Resp BP Pulse Ox
98.2 F 83 16 146/72 95
09/20/23 03:59 09/20/23 08:00 09/20/23 08:00 09/20/23 08:00 09/20/23 08:00
Cardiovascular:: Regular rate and rhythm
Respiratory:: Bilateral: Coarse
Lung Excursion:: Normal
Abdomen:: Nontender and Soft
Bowel Sounds:: Normal
Extremity Edema:: +1: Bilateral:
--- NOTE | 2023-09-20 10:20 | CM ---
Addendum entered by Carmelita Das 09/20/23 11:01:
CM spoke with Victorino Moore from insurance, confirmed auth denial # [id number], informed CM should be receiving fax with information on how to appeal and why auth was denied.
Original Note:
CM received update from patient insurance, LTAC insurance auth denied, peer to peer review can be completed within 48 hours, , TT sent to Senior Communications Engineer with update. CM will continue to follow for all discharge planning needs.
Plan; LTAC auth denied, peer to peer review to be conducted.
[2023-09-20 11:22] LABS: Glucose - Point of Care 146 mg/dl (70-99)
--- NOTE | 2023-09-20 13:00 | WOUNDNOTE ---
WO RN Note: Patient having frequent loose stools. Perineum, inner buttocks/thighs with excoriated skin. Sacral/buttocks almost healed, improved. L ischium scarred and healed. Sacral shaped silicone border foam applied to sacral/buttocks. Silicone
border foam applied to L ischium. Calazime ointment applied to connie/thigh/buttocks affected areas after connie care given. Ultrasorb pad changed. 32 [place] rectal trumpet inserted per RN Lissett's request to help divert loose stool away from skin. Lissett
requested rectal trumpet order from Dr. Bishop. Patient turned to R semi side lying position with help from [facility]. Skin on heels intact. Heels off bed with air chair cushion. Protective foam dressing applied to heels. Will follow as needed. Plan
is possible LTAC transfer if approved. Patient has Peg tube feeding. Will follow as needed.
--- NOTE | 2023-09-20 13:00 | WOUNDNOTE ---
Patient having frequent loose stools. Perineum, inner buttocks/thighs with excoriated skin. Sacral/buttocks almost healed, improved. L ischium scarred and healed. Sacral shaped silicone border foam applied to sacral/buttocks. Silicone border foam
applied to L ischium. Calazime ointment applied to connie/thigh/buttocks affected areas after connie care given. Ultrasorb pad changed. 32 Burmese rectal trumpet inserted per RN Lissett's request to help divert loose stool away from skin. Lissett requested
rectal trumpet order from Dr. Bishop. Patient turned to R semi side lying position with help from [facility]. Skin on heels intact. Heels off bed with air chair cushion. Protective foam dressing applied to heels. Will follow as needed. Plan if
possible LTAC transfer if approved. Patient has Peg tube feeding.
[2023-09-20] MEDS: NOVOLOG FLEXPEN-LOW RESISTANCE SC ×2 (14:05→23:53)
[2023-09-20 15:14] LABS: Blood Urea Nitrogen 47 mg/dl (7-17); Calcium 8.2 mg/dl (8.4-10.2); Carbon Dioxide 33 mmol/L (22-30); Chloride 104 mmol/L (98-107); Estimated Creatinine Clearance 28 ml/min; Glucose 133 mg/dl (70-99); Potassium 6.1 mmol/L (3.5-5.1); Sodium 138 mmol/L (135-145); eGFR 31.07
[2023-09-20] MEDS: LOKELMA 10 GRAM TUBE (15:24)
--- NOTE | 2023-09-20 17:11 | W.PN.PUL3 ---
Today's Communication / Plan
-
Continue pressure control ventilation
Chest x-ray in a.m.
Airway clearance measures
Consider bronchoscopy as clinically indicated
Disposition efforts
Assessment
-
Mrs Shruti Rockwell is a 62 year old F with history of chronic hypoxic/hypercarbic resp failure s/p trach, post COVID illness, who p/w CC shortness of breath. The patient was recently discharged from 08/25/23 for mucus plugging. Family states that on
day of admission, the patient had decreased responsiveness. She is placed on Trilogy at night/trach collar through the day. She has been sleeping more and less conversive. They have noticed her exhaled TV on Trilogy reporting on avg <200cc
nightly. Her baseline settings are TV 350/PS8/40%/5+. Per medics, the patient was initially on 15 L but desaturated to the 80s. She had to be bagged and her saturations did improve. She is placed on vent in ER and saturations are now improved.
CXR appears similar to prior. We are consulted for eval 09/01/23.
Impression:
Hypoxemic and hypercapnic respiratory failure due to recurrent mucous plug/left lung atelectasis
ABG 08/17/2023--52/59/7 0.24
Ventilator dependent respiratory failure
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
Status post emergent bronchoscopy at the bedside 08/18/2023-mucous plugs removed from the left
Pneumonia - SCx from 09/04 and BAL from 09/05 growing Serratia marcescens + Pseudomonas aeruginosa
Left pleural effusion
CHINTAN (Cr baseline 2.1)
Anemia-normocytic
Hypocalcemia
Hypernatremia
Metabolic and respiratory acidosis
Conditions present prior to admission:
Chronic hypercapnic/hypoxemic respiratory failure/chronic tracheostomy/nocturnal ventilation.
Severe Covid/ECMO 2019.
Diabetes.
Hypertension.
CAD/angioplasty 2020.
Recurrent UTI.
Ambulatory dysfunction/wheelchair-bound.
Chronic anemia.
Overweight.
Renal calculi.
Laparoscopic cholecystectomy 07/2020. Bilateral ureteroscopy with lithotripsy of the right renal stone and clearing of left renal pelvic fungal ball. Laminectomy. .
Plan/recommendations
No change in respiratory status overnight
No weaning 09/13 due to procedure, has been maintained on assist-control, volume-cycled ventilation
Presently appears to be comfortable
Oxygenation remained stable
Continues to have intermittent secretions. Rhonchi noted on exam
Suspect critical illness polyneuropathy
Chronic respiratory failure: Patient on trilogy ventilator at home. This admission settings where not optimal.Data from trilogy 08/16/23 showing usage 9.3 avg hours - MV 5.7 L/min - RR 23 - IPAP/EPAP 12.6/4.9 cm water - Avg VTe 249.1 - leak 32.5
L/min
Settings: Mode S, IPAP 13 EPAP 5
Currently dependent on mechanical ventilation 10/10: As above unable to wean the last several days.
Unfortunately has not able to wean down to trach collar as pt unable to tolerate PST for >1 hr. Continue tube feeds via PEG tube
Continue mechanical ventilation: On ACV at 16-450-5-0.4
Goal plateau pressure <30
Aspiration precautions
Routine tracheostomy tube care continues
Continue daily trials of weaning, shortened wean time to 1-2 hours daily
Unfortunately, not making any progress with regards to weans at this time
We will continue with daily assessments
Continue secretion clearance interventions: Persistent left white out despite maximal interventions.
CXR on AM of 09/05 shows persistent L-atelectasis.
Dr Epstein performed bronchoscopy on 09/05 for pulmonary toilet purposes and BAL of LLL --> Cx grew Serratia marcescens + Pseudomonas aeruginosa � follow-up sensitivities
During bronch, there was a mucosal abnormality at her LLL at the secondary fran, which appeared white/shiny --> concern for dysplasia but cytology negative for malignancy.
Maximal secretion clearance interventions ongoing:
Sport bed
Continue VEST/cofflator with trach instillations with mucomyst and alb nebs q6h
DNs with prn doses for in between
Chest x-ray 09/11/2023: Reviewed, showed improved aeration on the left but persistent left sided atelectasis.
Repeat chest x-ray 09/17 shows continued significant atelectasis in the left hemithorax, slightly improved compared to last CXR from 09/11/2023 to she would benefit from repeat bronchoscopy prior to her going to LTAC to help optimize her respiratory
status
Will repeat chest x-ray 09/20
Bronchoscopy at the bedside Dr. Treviño 09/11/2023:, Tolerated well per no evidence for large airway secretions bilaterally. No endobronchial masses. Secondary fran left lower lobe patchy leukoplakia. Has been biopsied in the past.
Nonobstructive.
Suspect chest x-ray is related to compressive atelectasis, possible some degree of pleural effusion/recovering pneumonia.
Tracheostomy has been exchanged:
Dr. Powell evaluated her on 09/05 --> #[id number] placed on 09/05 ([facility]); please make sure that extra tracheostomy is at bedside.
-
Pneumonia: Resolved. Completed antibiotic therapy
Discontinued antibiotics on 2023: Afebrile. Cultures negative. Fever again on AM of 09/04 --> ABx restarted with cefepime; trach secs culture 09-04 + BAL 09-05 both growing Serratia marcescens + Pseudomonas aeruginosa.
Positive blood culture 08-30 suspect contaminant (Lactob casei)
ID has evaluated the patient, (completed 5 d cefepime 09-08 with levaquin on 09/09)-infectious disease has signed off.
Continue to monitor off antibiotics.
Swallowing dysfunction:
Recurrent microaspiration also has been contemplated in the past. She has been evaluated by speech therapy multiple times in the past. Diet has been modified.
Primary team ordered video barium swallow--> unfortunately patient is not safe to be placed back onto trach collar at this time.
Re-assess daily
-
DVT prophylaxis-heparin SQ
Early mobilization/bedside range of motion-baseline wheelchair-bound and ambulatory dysfunction
Nutritional support via PEG
DC planning to LTAC. Dr. Treviño updated her 09/13/2023 need for PEG tube and eventual placement.
Prognosis is very poor long-term. Depending on extent of family desire for aggressive care, hospice may be an option
Continue support as above
The patient was last seen in the pulmonary office by Kalpana Mobley CURING OVEN TENDER 06/01/2023 and has an appointment 09/07/2023 at 10:30 AM --> this will be re-scheduled.
Disposition efforts
Diagnostic Data:
CXR 04-27, reviewed, L basilar atelectasis
CXR 04-19, resolved total L atelectasis, currently back to chronic L basilar atelectasis. New tracheostomy
CXR 04-16, portable, L basilar atelectasis
CXR 04/11/22- . Complete opacification of the left hemithorax, likely on the basis of a large pleural effusion and compressive atelectasis upon the left lung. Mild right basilar pneumonia suspected
Chest x-ray 08/17/2023-near complete opacification throughout the left Jovanni thorax
Chest 09-18-2023: Interval removal of enteric tube; No significant interval change compared to the prior x-ray with near complete opacification of left hemithorax secondary to atelectasis and pleural fluid. Diffusely increased interstitial opacities
within the right lung with small amount of likely loculated pleural fluid.
Echocardiogram 01/10/22-EF 60-65%, no significant valvular disease, small pericardial effusion
Echocardiogram 03/22/22: Normal left ventricular chamber size. Normal left ventricular systolic�function. Normal regional wall motion. Normal left ventricular wall thickness.�Left ventricular ejection fraction is 60-65%. Mild tricuspid
regurgitation.�Small to moderate pericardial effusion without evidence of hemodynamic�compromise.�Compared to the previous echo Dec 2021, there is no significant change.
CT CHEST 04/11/22- �A moderate to large left pleural effusion and complete collapse/atelectasis of the left lung account for the left hemithorax opacification on the prior chest radiograph. Findings are in part likely secondary to mucous plugging
given the presence of opacification of the left mainstem bronchus and left upper and lower lobe bronchi, patchy opacifications right middle and lower lobe suspicious for pneumonia, moderate right pleural effusion and ill-defined sclerotic lesion
T12, osseous metastasis not completely excluded
CT CHEST 03/22/22 - There is no CT evidence for pulmonary embolism. No aortic dissection.There are extremely large bilateral pleural effusions right greater than left and associated bilateral consolidation most prominent in the left lower
lobe.Cardiomegaly. Increased pericardial effusion.
CT chest 08/17/2023-occluded left mainstem bronchus presumably mucous plugs with complete atelectasis left lung moderate size left pleural effusion, small to moderate right pleural effusion
VSE 04/28/22: No aspiration. Laryngeal penetration with cough with thin liquids by cup.
Spirometry 09/09/21-FEV1 790 mL-36%, FVC 790 mL 27%. Some difficulties with maneuver and thus may offer unreliability. Severe restriction.�������
PFT 02/08/22-FVC 1.01/30%, FEV1 0.70/35%, ratio 69%, unable to perform lung volumes and diffusing capacity.
Subjective Data
-
Date of Service:
Date of Service: September 20, 2023
Chief Complaint: Pulmonary Follow Up (Acute respiratory failure/mucous plugging.)
Subjective:
Patient is currently on pressure control ventilation. Appears comfortable
Objective Data
Data Reviewed
Vital Signs / I&O / Oxygen:
Vital Signs
Temp Pulse Resp BP Pulse Ox
99.1 F 86 23 162/67 98
09/20/23 11:40 09/20/23 12:00 09/20/23 12:00 09/20/23 11:28 09/20/23 12:00
Intake and Output
09/19/23 09/20/23 09/21/23
06:59 06:59 06:59
Intake Total 1140 / 1140
Balance 1140 / 1140
SaO2 [CPAP/PSV] 96
SaO2 [A/C] 98
SaO2 98
Physical Exam
General: Comfortable
HEENT: Normocephalic and Tracheotomy
Cardiovascular: S1-S2, Murmur (n), Rub (n) and Peripheral Edema (Trace edema)
Respiratory: Wheeze (Negative), Crackles (Bilaterally), Rhonchi (Bilaterally (L >R)), Non-Labored Respirations and Other (Tracheotomy)
GI: Soft, Non Distended, Non Tender, Normal Bowel Sounds and Feeding Tube (PEG)
Neurology: Other (Sleeping comfortably)
Skin: Warm, Cyanosis (n) and Rash (n)
Labs/Micro/Reports
Lab Data
09/18/23 04:50
Microbiology
09/18/23 12:58 Feces/Stool C. difficile GDH Antigen & Toxins - Final
Negative for toxigenic C.difficile
09/06/23 15:39 Bronch Left Lower Lobe Fungal Culture - Preliminary
Culture in progress.
Positive cultures are reported as soon as detected.
Final report to follow in four to five weeks.
[2023-09-20 17:16] LABS: Glucose - Point of Care 176 mg/dl (70-99)
[2023-09-20 19:04] LABS: Potassium 6.1 mmol/L (3.5-5.1)
[2023-09-20] MEDS: LIPITOR 20 MG TUBE (19:12)
[2023-09-20] MEDS: TYLENOL 1000 MG TUBE (19:12)
[2023-09-20] MEDS: LOKELMA 10 GRAM PO (19:13)
[2023-09-20] MEDS: CARDURA 1 MG TUBE (19:13)
[2023-09-20] MEDS: LANTUS 0.15 UNITS SC (20:58)
[2023-09-20] MEDS: NOVOLIN R 0.1 UNITS IV (21:51)
[2023-09-20] MEDS: DEXTROSE 50% SYRINGE 25 GRAMS IV (21:52)
[2023-09-20 22:01] LABS: Glucose - Point of Care 175 mg/dl (70-99)
[2023-09-20 22:44] LABS: Potassium 5.6 mmol/L (3.5-5.1)
[2023-09-20 23:52] LABS: Glucose - Point of Care 137 mg/dl (70-99)
[2023-09-21] VITALS (11 sets, daily range): BP systolic 132–181; BP diastolic 52–74
[2023-09-21] MEDS: ROBITUSSIN 200 MG TUBE ×4 (01:25→19:16)
[2023-09-21 03:45] LABS: Hematocrit 28.1 % (37.0-47.0); Hemoglobin 9.1 g/dL (12.0-16.0); Mean Corp Hgb Conc. 32.4 g/dL (33.0-37.0); Mean Corpuscular Hgb 29.1 pg (27.0-31.0); Mean Corpuscular Volume 89.8 fL (81.0-99.0); Mean Platelet Volume 10.9 fL (7.4-10.4); Platelet Count 220 10^3/uL (130-400); Red Blood Cell Count 3.13 10^6/uL (4.20-5.40); Red Cell Dist. Width 15.9 % (11.5-14.5); White Blood Cell Count 7.5 10^3/uL (4.8-10.8)
[2023-09-21 04:13] LABS: Blood Urea Nitrogen 49 mg/dl (7-17); Calcium 8.6 mg/dl (8.4-10.2); Carbon Dioxide 27 mmol/L (22-30); Chloride 106 mmol/L (98-107); Estimated Creatinine Clearance 30 ml/min; Glucose 94 mg/dl (70-99); Potassium 5.4 mmol/L (3.5-5.1); Sodium 139 mmol/L (135-145); eGFR 33.28
[2023-09-21] MEDS: LOKELMA 10 GRAM PO ×3 (05:50→17:56)
[2023-09-21] MEDS: NOVOLOG FLEXPEN-LOW RESISTANCE SC (05:50)
[2023-09-21 05:58] LABS: Glucose - Point of Care 105 mg/dl (70-99)
--- NOTE | 2023-09-21 06:36 | PTCARENOTE ---
Patient with hyperkalemia overnight. Lokelma and insulin + dextrose administered as ordered. AM k 5.4
[2023-09-21] MEDS: DUONEB 3 ML INH ×2 (08:04→20:02)
[2023-09-21] MEDS: FEOSOL 325 MG TUBE (08:28)
[2023-09-21] MEDS: VITAMIN D3 (cholecalciferol) 25 MCG TUBE (08:28)
[2023-09-21] MEDS: POLYSPORIN OINTMENT 1 APPLIC TOPICAL (08:28)
[2023-09-21] MEDS: VITAMIN B-12 1000 MCG TUBE (08:28)
[2023-09-21] MEDS: HEPARIN 5000 UNITS SC ×2 (08:29→16:56)
[2023-09-21] MEDS: LOPRESSOR 50 MG TUBE ×2 (08:29→19:17)
[2023-09-21] MEDS: LASIX 40 MG TUBE (08:29)
[2023-09-21] MEDS: LOW STRENGTH ASPIRIN 81 MG TUBE (08:29)
[2023-09-21] MEDS: NORVASC 10 MG TUBE (08:29)
[2023-09-21] MEDS: SODIUM BICARBONATE 650 MG TUBE ×2 (08:29→19:17)
[2023-09-21] MEDS: DESENEX/MITRAZOL/ZEASORB 1 APPLIC TOPICAL ×2 (08:30→19:17)
--- NOTE | 2023-09-21 08:39 | W.PN.NEPH.PH ---
Today's Communication / Plan
-
Tube feeds changed to Nepro overnight to reduce potassium
Maintain Lokelma
Follow BMP
Assessment/Plan
-
Assessment:
Hyperkalemia
CKD (Cr baseline 2.1-2.6)
NAGMA
acute on chronic hypercapnic/hypoxemic respiratory failure
Anemia of chronic disease
T2DM
moderate pericardial effusion
HTN
DLDC.diff
Amb dysfunction
h/o kidney stones with stent placement in the past
Hypoalbuminemia
Plan:
lasix 40mg daily to continue
lokelma dry weight to concern
reduced bicarb
Tube feeds changed to Nepro to reduce potassium
follow BMP
d/w family
-
-
Date of Service: September 21, 2023
CC / HPI / ROS
-
Chief Complaint:
hyperkalemia
History of Present Illness:
K 5.4
Cr stable 1.7
BP stable
Review of Systems:
trach collar in place
TF 60/25 without issue
Incontinent
Labs
-
Labs:
WBC 7.5 10^3/uL (4.8-10.8) 09/21/23 03:21
RBC 3.13 10^6/uL (4.20-5.40) L 09/21/23 03:21
Hgb 9.1 g/dL (12.0-16.0) L 09/21/23 03:21
Hct 28.1 % (37.0-47.0) L 09/21/23 03:21
Plt Count 220 10^3/uL (130-400) 09/21/23 03:21
Sodium 139 mmol/L (135-145) 09/21/23 03:21
Potassium 5.4 mmol/L (3.5-5.1) H 09/21/23 03:21
Chloride 106 mmol/L (98-107) 09/21/23 03:21
Carbon Dioxide 27 mmol/L (22-30) 09/21/23 03:21
BUN 49 mg/dl (7-17) H 09/21/23 03:21
Creatinine 1.7 mg/dL (0.6-1.0) H 09/21/23 03:21
eGFR 33.28 09/21/23 03:21
Glucose 94 mg/dl (70-99) 09/21/23 03:21
Calcium 8.6 mg/dl (8.4-10.2) 09/21/23 03:21
Phosphorus 5.3 mg/dl (2.5-4.5) H 09/17/23 04:41
Jpz-D-Zxotokomzub Pept 64333 pg/ml 09/11/23 04:57
Albumin 2.5 g/dl (3.5-5.0) L 08/31/23 20:18
Physical Exam
-
Vital Signs:
Vital Signs
Temp Pulse Resp BP Pulse Ox
98.7 F 72 18 136/56 98
09/21/23 03:00 09/21/23 08:09 09/21/23 08:09 09/21/23 06:00 09/21/23 08:09
Cardiovascular:: Regular rate and rhythm
Respiratory:: Bilateral: Coarse
Lung Excursion:: Normal
Abdomen:: Nontender and Soft
Bowel Sounds:: Normal
Extremity Edema:: +1: Bilateral:
Bond Catheter: No
--- NOTE | 2023-09-21 09:01 | W.PN.HOSP.TC ---
Today's Communication/Plan
-
Potassium better
Continue Nepro
Await Placement
Assessment / Plan
Assessment / Plan
62-year-old female with chronic tracheostomy uses ventilator at night and trach collar during the day. She was admitted recently and was discharged on 08/25/2023 but she was admitted with acute on chronic hypoxic hypercapnic respiratory failure with
opacification of the left hemithorax. Patient underwent bronchoscopy on 08/18/2023 mucous plugs removed from the left. BAL grew Proteus and completed 7-day course of Unasyn per ID. She also had CHINTAN with CKD stage IV FLAVIO inhibitor was held.
Ultrasound of the kidney showed bilateral renal disease. She comes back with decreased responsiveness.
Awake and alert
Responds to questions
CVS S1 S2 Normal
Chest Decreased bases
Abd Peg Tube
LE no edema
Hesitant to move arms or do anything.
09/06/23 15:39 Bronch Left Lower Lobe Respiratory Culture - Final
Serratia marcescens
Pseudomonas aeruginosa
09/05/23 13:11 Tracheal Aspirate Respiratory Culture - Final
Serratia marcescens
Pseudomonas aeruginosa
Echo 08/18/23: EF 60 to 65%. Mild concentric LVH. Normal diastolic function. Normal RV size and function. Mild TR. Pulmonary pressure 30 cm of mercury. Small pericardial effusion without hemodynamic compromise
EGD (during PEG placement) 09/14/23: Normal esophagus. Scar in the greater curvature of the stomach. Normal examined duodenum. An externally removable PEG placement was successfully completed. No specimens collected.
#Acute on chronic hypercapnic/hypoxemic respiratory failure:
-With acute respiratory acidosis on admission
-CAREER AND TECHNOLOGY EDUCATION TEACHER the patient's tidal volume has decreased to an average of less than 200cc nightly (will be rectified with [employer]).
-Continues on ATC ACMV
-Wean as tolerated during day time
-VSE when patient can be on a trach collar
-s/p bronchoscopy 09/06/23
-ENT saw in consult and placed #6 Shiley (Sergei) on 09/06/2023 as there was concern for air leak
-Respiratory cultures with pseudomonas and Serratia (treated as aspiration PNA)
-Chest PT
-Appreciate ID, pt completed 5 days cefepime. Patient to start renally dosed Levofloxacin if relapses/develops fever.
-Repeat Bronchoscopy 09/11/23 was unremarkable (no secretions, masses, or mucous plugging)
#Acute metabolic encephalopathy on admission (and intermittent since):
-EEG, CT of the head all negative
-likely due to inadequate TV at home causing acute on chronic hypercapnic and hypoxemic respiratory failure with acute respiratory acidosis (on 30/07 at home as per family)
#Anemia of chronic disease and Fe deficiency: s/p 4 units of pRBCs
#One set of BCx with lactobacillus Casei: Likely contaminant
#Femoral line removed and Right IJ placed 09/07/23
#Hyperkaleia- Lokelma TID. TF chnaged to Nepro
#Hypomagnesemia, resolved
#Hypocalcemia- Normal Vit D level
#Positive LILIAN Screen: OP Rheum Eval
#CKD4, Cr at baseline. Sodium bicarb
#DM2: cont SSI/accuchecks/Lantus
#h/o small to moderate pericardial effusion
#Essential hypertension: cont Norvasc/doxazosin.
#Hyperlipidemia: Continue statin
#Coronary artery disease status post angioplasty: cont ASA/BB
#h/o C. diff.Negative this admit
#COVID pneumonia 2019 with ECMO and ventilator and 3-month hospital stay at [facility]
#Ambulatory dysfunction, wheelchair-bound since June 2019
#Spinal stenosis
#Overweight per BMI criteria
#Hypoalbuminemia
#Nutrition: s/p PEG 09/14/23. TFs started, now 60cc/hr. Changed to Nepro
#DVT Prophylaxis- SC Heparin
#FULL CODE
Pt's daughter
D/W Pulm
Discussed with RN
Awaiting Peer to Peer
Anticipated Discharge: Within 24 hours
Subjective/Interval History
-
Date of Service: September 21, 2023
Objective Data
-
Labs:
Laboratory Results
09/20/23 09/21/23 09/21/23
22:26 00:30 03:21
WBC 7.5
Hgb 9.1 L
Hct 28.1 L
Plt Count 220
Sodium Cancelled 139
Potassium 5.6 H Cancelled 5.4 H
Chloride Cancelled 106
Carbon Dioxide Cancelled 27
BUN Cancelled 49 H
Creatinine Cancelled 1.7 H
Glucose Cancelled 94
Calcium Cancelled 8.6
Vital Signs:
Vital Signs
Temp Pulse Resp BP Pulse Ox
98.7 F 72 18 136/56 98
09/21/23 03:00 09/21/23 08:09 09/21/23 08:09 09/21/23 06:00 09/21/23 08:09
I&O
09/20/23 09/21/23 09/22/23
06:59 06:59 06:59
Intake Total 1140 / 1140 1770 / 1770
Output Total 175 / 175
Balance 1140 / 1140 1595 / 1595
[2023-09-21 12:13] LABS: Glucose - Point of Care 163 mg/dl (70-99)
--- NOTE | 2023-09-21 13:27 | W.PN.PUL3 ---
Addendum entered and electronically signed by Allison Gibbons MD 09/21/23 13:39:
Patient tolerated 20 minutes of CPAP 08/01 then became tachypneic. Transition back to volume-cycled ventilation
Original Note:
Today's Communication / Plan
-
Transition to volume-cycled ventilation and see if she tolerates this for the next 24 hours
Chest x-ray 09/21
Consider bronchoscopy prior to transfer
Consider upsize tracheotomy tube if airway pressures/secretions continue to be an issue
Assessment
-
Mrs Shruti Rockwell is a 62 year old F with history of chronic hypoxic/hypercarbic resp failure s/p trach, post COVID illness, who p/w CC shortness of breath. The patient was recently discharged from 08/25/23 for mucus plugging. Family states that on
day of admission, the patient had decreased responsiveness. She is placed on Trilogy at night/trach collar through the day. She has been sleeping more and less conversive. They have noticed her exhaled TV on Trilogy reporting on avg <200cc
nightly. Her baseline settings are TV 350/PS8/40%/5+. Per medics, the patient was initially on 15 L but desaturated to the 80s. She had to be bagged and her saturations did improve. She is placed on vent in ER and saturations are now improved.
CXR appears similar to prior. We are consulted for eval 09/01/23.
Hypoxemic and hypercapnic respiratory failure due to recurrent mucous plug/left lung atelectasis
ABG 08/17/2023--52/59/7 0.24
Ventilator dependent respiratory failure
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
Status post emergent bronchoscopy at the bedside 08/18/2023-mucous plugs removed from the left
Pneumonia - SCx from 09/04 and BAL from 09/05 growing Serratia marcescens + Pseudomonas aeruginosa
Left pleural effusion
CHINTAN (Cr baseline 2.1)
Anemia-normocytic
Hypocalcemia
Hypernatremia
Metabolic and respiratory acidosis
Conditions present prior to admission:
Chronic hypercapnic/hypoxemic respiratory failure/chronic tracheostomy/nocturnal ventilation.
Severe Covid/ECMO 2019.
Diabetes.
Hypertension.
CAD/angioplasty 2020.
Recurrent UTI.
Ambulatory dysfunction/wheelchair-bound.
Chronic anemia.
Overweight.
Renal calculi.
Laparoscopic cholecystectomy 07/2020. Bilateral ureteroscopy with lithotripsy of the right renal stone and clearing of left renal pelvic fungal ball. Laminectomy. .
Plan/recommendations
No change in respiratory status overnight
She does appear to sound less rhonchorous today
Was able to switch over to volume-cycled ventilation this morning with respiratory care. Needed pressure control ventilation of the past 48 hours for high pressuring alarms
Has not weaned since 09/12
Presently appears to be comfortable
Oxygenation remained stable
Continues to have intermittent secretions. Rhonchi noted on exam
Suspect critical illness polyneuropathy
Chronic respiratory failure: Patient on trilogy ventilator at home. This admission settings where not optimal.Data from trilogy 08/16/23 showing usage 9.3 avg hours - MV 5.7 L/min - RR 23 - IPAP/EPAP 12.6/4.9 cm water - Avg VTe 249.1 - leak 32.5
L/min
Settings: Mode S, IPAP 13 EPAP 5
Currently dependent on mechanical ventilation 10/10: As above unable to wean the last several days.
Unfortunately has not able to wean down to trach collar as pt unable to tolerate PST for >1 hr. Continue tube feeds via PEG tube
Continue mechanical ventilation: On ACV at 16-450-5-0.4
Will try to transition to volume-cycled ventilation
Goal plateau pressure <30
Aspiration precautions
Routine tracheostomy tube care continues. #6 extra long tracheotomy noted
Check chest x-ray 09/21
May require upsize of tracheotomy if airway pressures continue to be an issue, secretions continue to be an issue
Continue secretion clearance interventions: Persistent left white out despite maximal interventions.
CXR on AM of 09/05 shows persistent L-atelectasis.
Dr Epstein performed bronchoscopy on 09/05 for pulmonary toilet purposes and BAL of LLL --> Cx grew Serratia marcescens + Pseudomonas aeruginosa � follow-up sensitivities
During bronch, there was a mucosal abnormality at her LLL at the secondary fran, which appeared white/shiny --> concern for dysplasia but cytology negative for malignancy.
Maximal secretion clearance interventions ongoing:
Sport bed
Continue VEST/cofflator with trach instillations with mucomyst and alb nebs q6h
DNs with prn doses for in between
Chest x-ray 09/11/2023: Reviewed, showed improved aeration on the left but persistent left sided atelectasis.
Repeat chest x-ray 09/17 shows continued significant atelectasis in the left hemithorax, slightly improved compared to last CXR from 09/11/2023
She may benefit from repeat bronchoscopy as clinically indicated
Repeat chest x-ray 09/21
Bronchoscopy at the bedside Dr. Treviño 09/11/2023:, Tolerated well per no evidence for large airway secretions bilaterally. No endobronchial masses. Secondary fran left lower lobe patchy leukoplakia. Has been biopsied in the past.
Nonobstructive.
Suspect chest x-ray is related to compressive atelectasis, possible some degree of pleural effusion/recovering pneumonia.
Tracheostomy has been exchanged:
Dr. Powell evaluated her on 09/05 --> #[id number] placed on 09/05 ([facility]cy); please make sure that extra tracheostomy is at bedside.
May require upsize his secretions and airway pressures continue to be an issue
Pneumonia: Resolved. Completed antibiotic therapy
Discontinued antibiotics on 2023: Afebrile. Cultures negative. Fever again on AM of 09/04 --> ABx restarted with cefepime; trach secs culture 09-04 + BAL 09-05 both growing Serratia marcescens + Pseudomonas aeruginosa.
Positive blood culture 08-30 suspect contaminant (Lactob casei)
ID has evaluated the patient, (completed 5 d cefepime 09-08 with levaquin on 09/09)-infectious disease has signed off.
Continue to monitor off antibiotics.
Swallowing dysfunction:
Recurrent microaspiration also has been contemplated in the past. She has been evaluated by speech therapy multiple times in the past. Diet has been modified.
Primary team ordered video barium swallow--> unfortunately patient is not safe to be placed back onto trach collar at this time.
Re-assess daily
DVT prophylaxis-heparin SQ
Early mobilization/bedside range of motion-baseline wheelchair-bound and ambulatory dysfunction
Nutritional support via PEG
DC planning to LTAC. Dr. Treviño updated her 09/13/2023 need for PEG tube and eventual placement.
Prognosis is very poor long-term. Depending on extent of family desire for aggressive care, hospice may be an option
Continue support as above
The patient was last seen in the pulmonary office by Kalpana Mobley NP 06/01/2023 and has an appointment 09/07/2023 at 10:30 AM --> this will be re-scheduled.
Disposition efforts
Reviewed with primary service, respiratory care
Diagnostic Data:
CXR 04-27, reviewed, L basilar atelectasis
CXR 04-19, resolved total L atelectasis, currently back to chronic L basilar atelectasis. New tracheostomy
CXR 04-16, portable, L basilar atelectasis
CXR 04/11/22- . Complete opacification of the left hemithorax, likely on the basis of a large pleural effusion and compressive atelectasis upon the left lung. Mild right basilar pneumonia suspected
Chest x-ray 08/17/2023-near complete opacification throughout the left Jovanni thorax
Chest 09-18-2023: Interval removal of enteric tube; No significant interval change compared to the prior x-ray with near complete opacification of left hemithorax secondary to atelectasis and pleural fluid. Diffusely increased interstitial opacities
within the right lung with small amount of likely loculated pleural fluid.
Echocardiogram 01/10/22-EF 60-65%, no significant valvular disease, small pericardial effusion
Echocardiogram 03/22/22: Normal left ventricular chamber size. Normal left ventricular systolic�function. Normal regional wall motion. Normal left ventricular wall thickness.�Left ventricular ejection fraction is 60-65%. Mild tricuspid
regurgitation.�Small to moderate pericardial effusion without evidence of hemodynamic�compromise.�Compared to the previous echo Dec 2021, there is no significant change.
CT CHEST 04/11/22- �A moderate to large left pleural effusion and complete collapse/atelectasis of the left lung account for the left hemithorax opacification on the prior chest radiograph. Findings are in part likely secondary to mucous plugging
given the presence of opacification of the left mainstem bronchus and left upper and lower lobe bronchi, patchy opacifications right middle and lower lobe suspicious for pneumonia, moderate right pleural effusion and ill-defined sclerotic lesion
T12, osseous metastasis not completely excluded
CT CHEST 03/22/22 - There is no CT evidence for pulmonary embolism. No aortic dissection.There are extremely large bilateral pleural effusions right greater than left and associated bilateral consolidation most prominent in the left lower
lobe.Cardiomegaly. Increased pericardial effusion.
CT chest 08/17/2023-occluded left mainstem bronchus presumably mucous plugs with complete atelectasis left lung moderate size left pleural effusion, small to moderate right pleural effusion
VSE 04/28/22: No aspiration. Laryngeal penetration with cough with thin liquids by cup.
Spirometry 09/09/21-FEV1 790 mL-36%, FVC 790 mL 27%. Some difficulties with maneuver and thus may offer unreliability. Severe restriction.�������
PFT 02/08/22-FVC 1.01/30%, FEV1 0.70/35%, ratio 69%, unable to perform lung volumes and diffusing capacity.
Subjective Data
-
Date of Service:
Date of Service: September 21, 2023
Chief Complaint: Pulmonary Follow Up (Acute respiratory failure/mucous plugging.)
Subjective:
Patient examined earlier this morning. She does open eyes but does not consistently follow commands for me. She remains on pressure control ventilation. Had issues with high airway pressures before.
Objective Data
Data Reviewed
Vital Signs / I&O / Oxygen:
Vital Signs
Temp Pulse Resp BP Pulse Ox
98.6 F 77 19 152/60 94
09/21/23 11:46 09/21/23 10:06 09/21/23 10:06 09/21/23 10:06 09/21/23 11:52
Intake and Output
09/20/23 09/21/23 09/22/23
06:59 06:59 06:59
Intake Total 1140 / 1140 1770 / 1770
Output Total 175 / 175
Balance 1140 / 1140 1595 / 1595
SaO2 [CPAP/PSV] 94
SaO2 [A/C] 94
SaO2 94
Physical Exam
General: Comfortable
HEENT: Normocephalic and Tracheotomy (#6)
Cardiovascular: S1-S2, Murmur (n), Rub (n) and Peripheral Edema (Trace edema)
Respiratory: Wheeze (Negative), Crackles (Few at base), Rhonchi (Few), Non-Labored Respirations and Other (Tracheotomy)
GI: Soft, Non Distended, Non Tender, Normal Bowel Sounds and Feeding Tube (PEG)
Neurology: Other (Sleeping comfortably, opens eyes, turns head but does not follow commands)
Skin: Warm, Cyanosis (n) and Rash (n)
Labs/Micro/Reports
Lab Data
09/21/23 03:21
09/21/23 03:21
Microbiology
09/18/23 12:58 Feces/Stool C. difficile GDH Antigen & Toxins - Final
Negative for toxigenic C.difficile
09/06/23 15:39 Bronch Left Lower Lobe Fungal Culture - Preliminary
Culture in progress.
Positive cultures are reported as soon as detected.
Final report to follow in four to five weeks.
[2023-09-21] MEDS: NOVOLOG FLEXPEN-LOW RESISTANCE 1 UNITS SC ×2 (13:32→18:02)
[2023-09-21 18:12] LABS: Glucose - Point of Care 164 mg/dl (70-99)
--- NOTE | 2023-09-21 18:18 | PTCARENOTE ---
Weaned on vent <1 hour with RT. Slightly agitiated today- wants to left alone. Care completed as documented. Required suction x4 today. Lupe area improved from yesterday - used soap and water rinses and purewick and rectal trumpet keeping area
clean and dry. Urine output 750ml today. Tolerating Nephro tube feeding at goal rate. Denies pain. Turning schedule.
[2023-09-21] MEDS: LIPITOR 20 MG TUBE (19:16)
[2023-09-21] MEDS: CARDURA 1 MG TUBE (19:17)
[2023-09-21] MEDS: LANTUS 0.15 UNITS SC (20:52)
[2023-09-22] VITALS (16 sets, daily range): BP systolic 135–186; BP diastolic 52–136
[2023-09-22] MEDS: HEPARIN 5000 UNITS SC ×4 (00:01→23:48)
[2023-09-22 00:02] LABS: Glucose - Point of Care 136 mg/dl (70-99)
[2023-09-22] MEDS: NOVOLOG FLEXPEN-LOW RESISTANCE SC ×3 (00:03→12:29)
[2023-09-22] MEDS: ROBITUSSIN 200 MG TUBE ×4 (01:52→20:04)
[2023-09-22 04:48] LABS: Blood Urea Nitrogen 49 mg/dl (7-17); Calcium 8.7 mg/dl (8.4-10.2); Carbon Dioxide 31 mmol/L (22-30); Chloride 105 mmol/L (98-107); Estimated Creatinine Clearance 28 ml/min; Glucose 85 mg/dl (70-99); Potassium 4.5 mmol/L (3.5-5.1); Sodium 140 mmol/L (135-145); eGFR 31.07
[2023-09-22] MEDS: LOKELMA PO (05:28)
--- NOTE | 2023-09-22 05:28 | PTCARENOTE ---
AM k 4.5. Patient due for lokelma dose. inbound call center representative provider made aware and ordered dose to be held.
[2023-09-22 05:35] LABS: Glucose - Point of Care 87 mg/dl (70-99)
--- NOTE | 2023-09-22 07:56 | W.PN.NEPH.PH ---
Today's Communication / Plan
-
observe
Assessment/Plan
-
Assessment:
Hyperkalemia
CKD (Cr baseline 2.1-2.6)
NAGMA
acute on chronic hypercapnic/hypoxemic respiratory failure
Anemia of chronic disease
T2DM
moderate pericardial effusion
HTN
DLDC.diff
Amb dysfunction
h/o kidney stones with stent placement in the past
Hypoalbuminemia
Plan:
lasix 40mg daily to continue
GFR stable at baseline
lokelma re: hyperkalemia which today remains controlled
maintain lower dose bicarbonate
Tube feeds were changed to Nepro to reduce potassium load
follow BMP
d/w family
-
-
Date of Service: September 22, 2023
CC / HPI / ROS
-
Chief Complaint:
hyperkalemia
History of Present Illness:
K 4.5
Cr stable 1.8
BP stable
Review of Systems:
trach collar in place
TF 60/25 without issue
Incontinent
Labs
-
Labs:
WBC 7.5 10^3/uL (4.8-10.8) 09/21/23 03:21
RBC 3.13 10^6/uL (4.20-5.40) L 09/21/23 03:21
Hgb 9.1 g/dL (12.0-16.0) L 09/21/23 03:21
Hct 28.1 % (37.0-47.0) L 09/21/23 03:21
Plt Count 220 10^3/uL (130-400) 09/21/23 03:21
Sodium 140 mmol/L (135-145) 09/22/23 04:05
Potassium 4.5 mmol/L (3.5-5.1) 09/22/23 04:05
Chloride 105 mmol/L (98-107) 09/22/23 04:05
Carbon Dioxide 31 mmol/L (22-30) H 09/22/23 04:05
BUN 49 mg/dl (7-17) H 09/22/23 04:05
Creatinine 1.8 mg/dL (0.6-1.0) H 09/22/23 04:05
eGFR 31.07 09/22/23 04:05
Glucose 85 mg/dl (70-99) 09/22/23 04:05
Calcium 8.7 mg/dl (8.4-10.2) 09/22/23 04:05
Phosphorus 5.3 mg/dl (2.5-4.5) H 09/17/23 04:41
Fez-E-Iwmrzrkvbdp Pept 23067 pg/ml 09/11/23 04:57
Albumin 2.5 g/dl (3.5-5.0) L 08/31/23 20:18
Physical Exam
-
Vital Signs:
Vital Signs
Temp Pulse Resp BP Pulse Ox
98.2 F 78 16 145/60 98
09/22/23 03:24 09/22/23 06:00 09/22/23 06:00 09/22/23 06:00 09/22/23 06:00
Cardiovascular:: Regular rate and rhythm
Respiratory:: Bilateral: Coarse
Lung Excursion:: Normal
Abdomen:: Nontender and Soft
Bowel Sounds:: Normal
Extremity Edema:: +1: Bilateral:
Bond Catheter: No
[2023-09-22] MEDS: DUONEB 3 ML INH ×2 (08:05→19:39)
--- NOTE | 2023-09-22 08:45 | PTCARENOTE ---
Patient received from mottler machine feeder. Patient resting comfortably in bed. AAOx2, little forgetful with place. VSS. No events noted overnight. No complaints of pain at this time. Currently on the ventilator A/C 16 450 +5 40%. Will attempt to wean
again as tolerated. Tube Feed Nepro @ 40mL/hr with 25mL H2O flush. Call giles in reach.
[2023-09-22] MEDS: LOW STRENGTH ASPIRIN 81 MG TUBE (09:19)
[2023-09-22] MEDS: LASIX 40 MG TUBE (09:19)
[2023-09-22] MEDS: FEOSOL 325 MG TUBE (09:21)
[2023-09-22] MEDS: NORVASC 10 MG TUBE (09:22)
[2023-09-22] MEDS: LOPRESSOR 50 MG TUBE ×2 (09:22→20:04)
[2023-09-22] MEDS: VITAMIN D3 (cholecalciferol) 25 MCG TUBE (09:22)
[2023-09-22] MEDS: DESENEX/MITRAZOL/ZEASORB 1 APPLIC TOPICAL ×2 (09:23→20:04)
[2023-09-22] MEDS: SODIUM BICARBONATE 650 MG TUBE ×2 (09:23→20:04)
[2023-09-22] MEDS: VITAMIN B-12 1000 MCG TUBE (09:27)
--- NOTE | 2023-09-22 09:32 | W.PN.HOSP.TC ---
Today's Communication/Plan
-
Still Awaiting placement.
Assessment / Plan
Assessment / Plan
62-year-old female with chronic tracheostomy uses ventilator at night and trach collar during the day. She was admitted recently and was discharged on 08/25/2023 but she was admitted with acute on chronic hypoxic hypercapnic respiratory failure with
opacification of the left hemithorax. Patient underwent bronchoscopy on 08/18/2023 mucous plugs removed from the left. BAL grew Proteus and completed 7-day course of Unasyn per ID. She also had CHINTAN with CKD stage IV FLAVIO inhibitor was held.
Ultrasound of the kidney showed bilateral renal disease. She comes back with decreased responsiveness.
Awake and alert
Responds to questions
CVS S1 S2 Normal
Chest Decreased bases
Abd Peg Tube
LE no edema
perineal area skin escoriation
Hesitant to move arms or do anything.
09/06/23 15:39 Bronch Left Lower Lobe Respiratory Culture - Final
Serratia marcescens
Pseudomonas aeruginosa
09/05/23 13:11 Tracheal Aspirate Respiratory Culture - Final
Serratia marcescens
Pseudomonas aeruginosa
Echo 08/18/23: EF 60 to 65%. Mild concentric LVH. Normal diastolic function. Normal RV size and function. Mild TR. Pulmonary pressure 30 cm of mercury. Small pericardial effusion without hemodynamic compromise
EGD (during PEG placement) 09/14/23: Normal esophagus. Scar in the greater curvature of the stomach. Normal examined duodenum. An externally removable PEG placement was successfully completed. No specimens collected.
#Acute on chronic hypercapnic/hypoxemic respiratory failure:
-With acute respiratory acidosis on admission
-COURT COMMISSIONER the patient's tidal volume has decreased to an average of less than 200cc nightly (will be rectified with [employer]).
-Continues on ATC ACMV
-Wean as tolerated during day time
-VSE when patient can be on a trach collar
-s/p bronchoscopy 09/06/23
-ENT saw in consult and placed #6 Shiley (Sergei) on 09/06/2023 as there was concern for air leak
-Respiratory cultures with pseudomonas and Serratia (treated as aspiration PNA)
-Chest PT
-Appreciate ID, pt completed 5 days cefepime. Patient to start renally dosed Levofloxacin if relapses/develops fever.
-Repeat Bronchoscopy 09/11/23 was unremarkable (no secretions, masses, or mucous plugging)
#Acute metabolic encephalopathy on admission (and intermittent since):
-EEG, CT of the head all negative
-likely due to inadequate TV at home causing acute on chronic hypercapnic and hypoxemic respiratory failure with acute respiratory acidosis (on 30/07 at home as per family)
#Anemia of chronic disease and Fe deficiency: s/p 4 units of pRBCs
#One set of BCx with lactobacillus Casei: Likely contaminant
#Femoral line removed and Right IJ placed 09/07/23
#Hyperkaleia- Lokelma TF changed to Nepro, K better
#Hypomagnesemia, resolved
#Hypocalcemia- Normal Vit D level
#Positive LILIAN Screen: OP Rheum Eval
#CKD4, Cr at baseline. Sodium bicarb
#DM2: cont SSI/accuchecks/Lantus
#h/o small to moderate pericardial effusion
#Essential hypertension: cont Norvasc/doxazosin.
#Hyperlipidemia: Continue statin
#Coronary artery disease status post angioplasty: cont ASA/BB
#h/o C. diff.Negative this admit
#COVID pneumonia 2019 with ECMO and ventilator and 3-month hospital stay at [place]
#Ambulatory dysfunction, wheelchair-bound since June 2019
#Spinal stenosis
#Overweight per BMI criteria
#Hypoalbuminemia
#Nutrition: s/p PEG 09/14/23. TFs started, now 60cc/hr. Changed to Nepro
#DVT Prophylaxis- SC Heparin
#FULL CODE
Discussed with RN at bed side
Awaiting Peer to Peer
Anticipated Discharge: Within 24 hours
Subjective/Interval History
-
Date of Service: September 22, 2023
Objective Data
-
Labs:
Laboratory Results
09/22/23
04:05
Sodium 140
Potassium 4.5
Chloride 105
Carbon Dioxide 31 H
BUN 49 H
Creatinine 1.8 H
Glucose 85
Calcium 8.7
Vital Signs:
Vital Signs
Temp Pulse Resp BP Pulse Ox
98.0 F 73 16 152/67 99
09/22/23 07:23 09/22/23 09:19 09/22/23 08:06 09/22/23 09:19 09/22/23 08:06
I&O
09/21/23 09/22/23 09/23/23
06:59 06:59 06:59
Intake Total 1770 / 1770 2180 / 2180
Output Total 175 / 175 1500 / 1500
Balance 1595 / 1595 680 / 680
--- NOTE | 2023-09-22 10:34 | CM ---
CM spoke with Anthony from [employer], , obtained biomedical engineering supervisor contact [phone] Dr. Jack, auth denial #[id number]. TT sent to [employer] Supervisor with contact information and update. Updated clinicals sent through [facility] to [facility].
CM will continue to follow for all discharge planning needs.
Plan; Peer to peer to be conducted by biomedical engineering supervisor, patient denied LTAC auth.
--- NOTE | 2023-09-22 10:44 | W.PN.PUL3 ---
Today's Communication / Plan
-
Diuresis today with lasix 60mg IVP x1 based on today's CXR
Consider bronchoscopy prior to transfer
Consider upsize tracheotomy tube if airway pressures/secretions continue to be an issue
Daily weaning trials - tolerated PS 12/8 today for ~5 hours
I updated patient's daughter today over phone
Assessment
-
Mrs Shruti Rockwell is a 62 year old F with history of chronic hypoxic/hypercarbic resp failure s/p trach, post COVID illness, who p/w CC shortness of breath. The patient was recently discharged from 08/25/23 for mucus plugging. Family states that on
day of admission, the patient had decreased responsiveness. She is placed on Trilogy at night/trach collar through the day. She has been sleeping more and less conversive. They have noticed her exhaled TV on Trilogy reporting on avg <200cc
nightly. Her baseline settings are TV 350/PS8/40%/5+. Per medics, the patient was initially on 15 L but desaturated to the 80s. She had to be bagged and her saturations did improve. She is placed on vent in ER and saturations are now improved.
CXR appears similar to prior. We are consulted for eval 09/01/23.
Impression:
Hypoxemic and hypercapnic respiratory failure due to recurrent mucous plug/left lung atelectasis
Ventilator dependent respiratory failure
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
Status post emergent bronchoscopy at the bedside 08/18/2023-mucous plugs removed from the left
Pneumonia - SCx from 09/04 and BAL from 09/05 growing Serratia marcescens + Pseudomonas aeruginosa
Left pleural effusion
CHINTAN (Cr baseline 1.8)
Anemia-normocytic
Hypocalcemia
Hypernatremia
Metabolic and respiratory acidosis
Conditions present prior to admission:
Chronic hypercapnic/hypoxemic respiratory failure/chronic tracheostomy/nocturnal ventilation.
Severe Covid/ECMO 2019.
Diabetes.
Hypertension.
CAD/angioplasty 2020.
Recurrent UTI.
Ambulatory dysfunction/wheelchair-bound.
Chronic anemia.
Overweight.
Renal calculi.
Laparoscopic cholecystectomy 07/2020. Bilateral ureteroscopy with lithotripsy of the right renal stone and clearing of left renal pelvic fungal ball. Laminectomy. .
Plan/recommendations
No change in respiratory status overnight
She does have better aeration in the left hemithorax today
Was able to tolerate about 5 hours of pressure support today on settings PS 12, PEEP of 8
Prior to today, she had not adequately weaned since 09/12
Presently appears to be comfortable
Oxygenation remained stable
Continues to have intermittent secretions. Rhonchi noted on exam
Suspect critical illness polyneuropathy
CXR today with possible pulmonary edema (she is also net (+) 11L since admission) --> give lasix 60mg IVP x1 and re-assess daily
Chronic respiratory failure: Patient on trilogy ventilator at home. This admission settings where not optimal. Data from trilogy 08/16/23 showing usage 9.3 avg hours - MV 5.7 L/min - RR 23 - IPAP/EPAP 12.6/4.9 cm water - Avg VTe 249.1 - leak 32.5
L/min
Settings: Mode S, IPAP 13 EPAP 5
Continue with mechanical ventilation at nighttime with daily weaning trials
Today she was able to tolerate PST 12/8, will do similar settings tomorrow with goal eventually of 5/5
Once she is down to 5/5 then we can try trach collar with Passy-Micro trials
Goal plateau pressure <30
Aspiration precautions
Routine tracheostomy tube care continues. #6 extra long tracheotomy noted
May require upsize of tracheotomy if airway pressures continue to be an issue, secretions continue to be an issue
Continue secretion clearance interventions: Persistent left lung atelectasis out despite maximal interventions.
CXR on AM of 09/05 shows persistent L-atelectasis --> improved on today's CXR (09/22/2023)
Dr Epstein performed bronchoscopy on 09/05 for pulmonary toilet purposes and BAL of LLL --> Cx grew Serratia marcescens + Pseudomonas aeruginosa
During bronch, there was a mucosal abnormality at her LLL at the secondary fran, which appeared white/shiny --> concern for dysplasia but cytology negative for malignancy.
Maximal secretion clearance interventions ongoing:
Sport bed
Continue VEST/cofflator with trach instillations with mucomyst and alb nebs q6h
DNs with prn doses for in between
Chest x-ray 09/11/2023: Reviewed, showed improved aeration on the left but persistent left sided atelectasis.
Repeat chest x-ray 09/17 shows continued significant atelectasis in the left hemithorax, slightly improved compared to last CXR from 09/11/2023
She may benefit from repeat bronchoscopy as clinically indicated
Occasionally repeat CXR
Bronchoscopy at the bedside Dr. Treviño 09/11/2023:, Tolerated well per no evidence for large airway secretions bilaterally. No endobronchial masses. Secondary fran left lower lobe patchy leukoplakia. Prior BAL cytopathology negative; this
region was never biopsied
Suspect chest x-ray is related to compressive atelectasis, possible some degree of pleural effusion/recovering pneumonia.
Tracheostomy has been exchanged:
Dr. Powell evaluated her on 09/05 --> #6XLT placed on 09/05 ([facility]); please make sure that extra tracheostomy is at bedside.
May require upsize if secretions and airway pressures continue to be an issue
Pneumonia: Resolved. Completed antibiotic therapy
Discontinued antibiotics on 09/03/2023: Afebrile. Cultures negative. Fever again on AM of 09/04 --> ABx restarted with cefepime; trach secs culture 09-04 + BAL 09-05 both growing Serratia marcescens + Pseudomonas aeruginosa.
Positive blood culture 08-30 suspect contaminant (Lactob casei)
ID has evaluated the patient, (completed 5 d cefepime 09-08 with levaquin on 09/09)-infectious disease has signed off.
Continue to monitor off antibiotics.
Swallowing dysfunction:
Recurrent microaspiration also has been contemplated in the past. She has been evaluated by speech therapy multiple times in the past. Diet has been modified.
Primary team ordered video barium swallow--> unfortunately patient is not safe to be placed back onto trach collar at this time.
Re-assess daily
DVT prophylaxis-heparin SQ
Early mobilization/bedside range of motion-baseline wheelchair-bound and ambulatory dysfunction
Nutritional support via PEG
DC planning to LTAC. Dr. Treviño updated her 09/13/2023 need for PEG tube and eventual placement.
Prognosis is very poor long-term. Depending on extent of family desire for aggressive care, hospice may be an option
Continue support as above
The patient was last seen in the pulmonary office by Kalpana Mobley NP 06/01/2023 and has an appointment 09/07/2023 at 10:30 AM --> this will be re-scheduled.
I called the daughter, Martina, and I answered all her questions
Disposition efforts
Reviewed with primary service, respiratory care
Total time spent today was 50 minutes for this encounter. Time includes reviewing laboratory test/imaging results, reviewing pertinent medical records, obtaining and reviewing medical history, performing an appropriate exam, ordering medications,
tests and procedures. Time also includes documentation of this encounter, coordinating patient care and communicating with other healthcare professionals. Total time does not include separately billed tests performed on this date of service.
Diagnostic Data:
CXR 04-27, reviewed, L basilar atelectasis
CXR 04-19, resolved total L atelectasis, currently back to chronic L basilar atelectasis. New tracheostomy
CXR 04-16, portable, L basilar atelectasis
CXR 04/11/22- . Complete opacification of the left hemithorax, likely on the basis of a large pleural effusion and compressive atelectasis upon the left lung. Mild right basilar pneumonia suspected
Chest x-ray 08/17/2023-near complete opacification throughout the left Jovanni thorax
Chest 09-18-2023: Interval removal of enteric tube; No significant interval change compared to the prior x-ray with near complete opacification of left hemithorax secondary to atelectasis and pleural fluid. Diffusely increased interstitial opacities
within the right lung with small amount of likely loculated pleural fluid.
CXR 09-22-2023: Low lung volumes with diffusely increased interstitial markings bilaterally with nonspecific patchy opacities seen within the right midlung. Compared to the prior study, there is improved aeration of the left lung. Persistent/confluent
left basilar opacity which may represent a small amount of pleural fluid and/or airspace consolidation.
Echocardiogram 01/10/22-EF 60-65%, no significant valvular disease, small pericardial effusion
Echocardiogram 03/22/22: Normal left ventricular chamber size. Normal left ventricular systolic�function. Normal regional wall motion. Normal left ventricular wall thickness.�Left ventricular ejection fraction is 60-65%. Mild tricuspid
regurgitation.�Small to moderate pericardial effusion without evidence of hemodynamic�compromise.�Compared to the previous echo Dec 2021, there is no significant change.
CT CHEST 04/11/22- �A moderate to large left pleural effusion and complete collapse/atelectasis of the left lung account for the left hemithorax opacification on the prior chest radiograph. Findings are in part likely secondary to mucous plugging
given the presence of opacification of the left mainstem bronchus and left upper and lower lobe bronchi, patchy opacifications right middle and lower lobe suspicious for pneumonia, moderate right pleural effusion and ill-defined sclerotic lesion
T12, osseous metastasis not completely excluded
CT CHEST 03/22/22 - There is no CT evidence for pulmonary embolism. No aortic dissection.There are extremely large bilateral pleural effusions right greater than left and associated bilateral consolidation most prominent in the left lower
lobe.Cardiomegaly. Increased pericardial effusion.
CT chest 08/17/2023-occluded left mainstem bronchus presumably mucous plugs with complete atelectasis left lung moderate size left pleural effusion, small to moderate right pleural effusion
VSE 04/28/22: No aspiration. Laryngeal penetration with cough with thin liquids by cup.
Spirometry 09/09/21-FEV1 790 mL-36%, FVC 790 mL 27%. Some difficulties with maneuver and thus may offer unreliability. Severe restriction.�������
PFT 02/08/22-FVC 1.01/30%, FEV1 0.70/35%, ratio 69%, unable to perform lung volumes and diffusing capacity.
Subjective Data
-
Date of Service:
Date of Service: September 22, 2023
Chief Complaint: Pulmonary Follow Up (Acute respiratory failure/mucous plugging.)
Subjective:
Patient seen and evaluated at bedside. Remains on VC/AC at 16/450/40%/5, breathing at 16 breaths/min, with PIP of 33 cmH2O with VTe of 379 mL. She is in no acute distress. Following all commands. Answering questions appropriately by mouthing her
words or gesticulating with her head by nodding yes or no. She is saturating 99% with heart rate 74 and BP 174/69. Tube feeds are infusing through G-tube. She denies chest pain, headache, abdominal pain, fevers or chills.
Review of Systems
General: Other (Negative unless mentioned above)
Objective Data
Data Reviewed
Vital Signs / I&O / Oxygen:
Vital Signs
Temp Pulse Resp BP Pulse Ox
98.0 F 73 16 152/67 99
09/22/23 07:23 09/22/23 09:19 09/22/23 08:06 09/22/23 09:19 09/22/23 08:06
Intake and Output
09/21/23 09/22/23 09/23/23
06:59 06:59 06:59
Intake Total 1770 / 1770 2180 / 2180
Output Total 175 / 175 1500 / 1500
Balance 1595 / 1595 680 / 680
SaO2 [CPAP/PSV] 94
SaO2 [A/C] 99
SaO2 99
Physical Exam
General: Comfortable
HEENT: Normocephalic, Anicteric and Tracheotomy (#6 XLT)
Cardiovascular: S1-S2, Murmur (n), Rub (n) and Peripheral Edema (Trace edema)
Respiratory: Wheeze (Negative), Crackles (Few at base), Rhonchi (Few), Non-Labored Respirations, Other (Reduced breath sounds in the left hemithorax) and Other (Tracheostomy)
GI: Soft, Non Distended, Non Tender, Normal Bowel Sounds and Feeding Tube (G-tube present)
Neurology: Awake, Alert and Other (Following commands)
Skin: Warm, Dry, Cyanosis (n) and Rash (n)
Labs/Micro/Reports
Lab Data
09/21/23 03:21
09/22/23 04:05
[2023-09-22 12:20] LABS: Glucose - Point of Care 143 mg/dl (70-99)
--- NOTE | 2023-09-22 14:15 | PTOTSP ---
RETAIL LEADER Note
Evaluation orders appreciated. RETAIL LEADER signed off as patient was inappropriate to trial inline speaking valve or cuff deflation.
Per chart review, patient had PEG placed 09/14/2023. She currently has trach, requires volume cycled ventilation for respiratory support.
Contacted director human services and respiratory therapist. Patient still weaning from ventilator support. Hold evaluation until PS 5 and PEEP of 8 per pulmonology.
Patient medically inappropriate at this time. Will continue to hold. Please reconsult when patient with appropriate parameters.
[2023-09-22] MEDS: LOKELMA 10 GRAM PO ×2 (14:28→17:28)
[2023-09-22] MEDS: NOVOLOG FLEXPEN-LOW RESISTANCE 2 UNITS SC (17:27)
[2023-09-22 17:37] LABS: Glucose - Point of Care 205 mg/dl (70-99)
[2023-09-22] MEDS: LASIX 60 MG IV (20:03)
[2023-09-22] MEDS: LIPITOR 20 MG TUBE (20:04)
[2023-09-22] MEDS: CARDURA 1 MG TUBE (22:00)
[2023-09-22] MEDS: LANTUS 0.15 UNITS SC (23:48)
[2023-09-23] VITALS (14 sets, daily range): BP systolic 134–177; BP diastolic 62–107
[2023-09-23] LABS: Glucose - Point of Care 156 mg/dl (70-99)
[2023-09-23] MEDS: NOVOLOG FLEXPEN-LOW RESISTANCE 1 UNITS SC ×2 (00:44→18:25)
--- NOTE | 2023-09-23 02:15 | PTCARENOTE ---
Pt had no complaints at this time. Pt appears to be tolerating TF. Pt tolerating Vent. Assessment care and vitals as charted.
[2023-09-23] MEDS: ROBITUSSIN 200 MG TUBE ×4 (02:44→20:33)
[2023-09-23 05:48] LABS: Glucose - Point of Care 114 mg/dl (70-99)
[2023-09-23] MEDS: NOVOLOG FLEXPEN-LOW RESISTANCE SC ×2 (06:36→12:49)
[2023-09-23] MEDS: HEPARIN 5000 UNITS SC ×2 (08:13→15:39)
[2023-09-23] MEDS: LOPRESSOR 50 MG TUBE ×2 (08:14→20:33)
[2023-09-23] MEDS: FEOSOL 325 MG TUBE (08:14)
[2023-09-23] MEDS: VITAMIN B-12 1000 MCG TUBE (08:14)
[2023-09-23] MEDS: VITAMIN D3 (cholecalciferol) 25 MCG TUBE (08:15)
[2023-09-23] MEDS: LASIX 40 MG TUBE (08:15)
[2023-09-23] MEDS: SODIUM BICARBONATE 650 MG TUBE ×2 (08:15→20:33)
[2023-09-23] MEDS: NORVASC 10 MG TUBE (08:15)
[2023-09-23] MEDS: LOW STRENGTH ASPIRIN 81 MG TUBE (08:16)
[2023-09-23] MEDS: DUONEB 3 ML INH ×2 (08:24→17:59)
--- NOTE | 2023-09-23 09:06 | W.PN.NEPH.PH ---
Today's Communication / Plan
-
Follow-up BMP in am
Assessment/Plan
-
Assessment:
Hyperkalemia
CKD (Cr baseline 2.1-2.6)
NAGMA
acute on chronic hypercapnic/hypoxemic respiratory failure
Anemia of chronic disease
T2DM
moderate pericardial effusion
HTN
DLDC.diff
Amb dysfunction
h/o kidney stones with stent placement in the past
Hypoalbuminemia
Plan:
lasix 40mg daily to continue,watch weights
GFR stable at baseline
lokelma re: hyperkalemia
maintain lower dose bicarbonate
Tube feeds were changed to Nepro to reduce potassium load
follow BMP
y
-
-
Date of Service: September 23, 2023
CC / HPI / ROS
-
Chief Complaint:
hyperkalemia
History of Present Illness:
K 4.5
Cr stable 1.8
BP stable
Review of Systems:
trach collar in place
TF 60/25 without issue
Incontinent
Weight stable
Labs
-
Labs:
WBC 7.5 10^3/uL (4.8-10.8) 09/21/23 03:21
RBC 3.13 10^6/uL (4.20-5.40) L 09/21/23 03:21
Hgb 9.1 g/dL (12.0-16.0) L 09/21/23 03:21
Hct 28.1 % (37.0-47.0) L 09/21/23 03:21
Plt Count 220 10^3/uL (130-400) 09/21/23 03:21
Sodium 140 mmol/L (135-145) 09/22/23 04:05
Potassium 4.5 mmol/L (3.5-5.1) 09/22/23 04:05
Chloride 105 mmol/L (98-107) 09/22/23 04:05
Carbon Dioxide 31 mmol/L (22-30) H 09/22/23 04:05
BUN 49 mg/dl (7-17) H 09/22/23 04:05
Creatinine 1.8 mg/dL (0.6-1.0) H 09/22/23 04:05
eGFR 31.07 09/22/23 04:05
Glucose 85 mg/dl (70-99) 09/22/23 04:05
Calcium 8.7 mg/dl (8.4-10.2) 09/22/23 04:05
Phosphorus 5.3 mg/dl (2.5-4.5) H 09/17/23 04:41
Cbv-I-Ouytogguexk Pept 60347 pg/ml 09/11/23 04:57
Albumin 2.5 g/dl (3.5-5.0) L 08/31/23 20:18
Physical Exam
-
Vital Signs:
Vital Signs
Temp Pulse Resp BP Pulse Ox
98.3 F 80 16 147/63 99
09/23/23 07:14 09/23/23 08:33 09/23/23 08:33 09/23/23 08:15 09/23/23 08:33
Cardiovascular:: Regular rate and rhythm
Respiratory:: Bilateral: Coarse
Lung Excursion:: Normal
Abdomen:: Nontender and Soft
Bowel Sounds:: Normal
Extremity Edema:: None: Bilateral:
Bond Catheter: No
--- NOTE | 2023-09-23 10:10 | W.PN.HOSP.TC ---
Today's Communication/Plan
-
Medically stable for LTAC
Assessment / Plan
Assessment / Plan
62-year-old female with chronic tracheostomy uses ventilator at night and trach collar during the day. She was admitted recently and was discharged on 08/25/2023 but she was admitted with acute on chronic hypoxic hypercapnic respiratory failure with
opacification of the left hemithorax. Patient underwent bronchoscopy on 08/18/2023 mucous plugs removed from the left. BAL grew Proteus and completed 7-day course of Unasyn per ID. She also had CHINTAN with CKD stage IV FLAVIO inhibitor was held.
Ultrasound of the kidney showed bilateral renal disease. She comes back with decreased responsiveness.
Awake and alert
Responds to questions
CVS S1 S2 Normal
Chest CTA
Abd Peg Tube
LE no edema
09/06/23 15:39 Bronch Left Lower Lobe Respiratory Culture - Final
Serratia marcescens
Pseudomonas aeruginosa
09/05/23 13:11 Tracheal Aspirate Respiratory Culture - Final
Serratia marcescens
Pseudomonas aeruginosa
Echo 08/18/23: EF 60 to 65%. Mild concentric LVH. Normal diastolic function. Normal RV size and function. Mild TR. Pulmonary pressure 30 cm of mercury. Small pericardial effusion without hemodynamic compromise
EGD (during PEG placement) 09/14/23: Normal esophagus. Scar in the greater curvature of the stomach. Normal examined duodenum. An externally removable PEG placement was successfully completed. No specimens collected.
#Acute on chronic hypercapnic/hypoxemic respiratory failure:
-With acute respiratory acidosis on admission
-AVIATION SUPPORT EQUIPMENT REPAIRER the patient's tidal volume has decreased to an average of less than 200cc nightly (will be rectified with [employer]).
-Continues on ATC ACMV
-Wean as tolerated during day time
-VSE when patient can be on a trach collar
-s/p bronchoscopy 09/06/23
-ENT saw in consult and placed #6 Romero (Sergei) on 09/06/2023 as there was concern for air leak
-Respiratory cultures with pseudomonas and Serratia (treated as aspiration PNA)
-Pt completed 5 days cefepime. Patient to start renally dosed Levofloxacin if relapses/develops fever.
-Repeat Bronchoscopy 09/11/23 was unremarkable (no secretions, masses, or mucous plugging)
#Acute metabolic encephalopathy on admission (and intermittent since):
-EEG, CT of the head all negative
-likely due to inadequate TV at home causing acute on chronic hypercapnic and hypoxemic respiratory failure with acute respiratory acidosis (on 30/07 at home as per family)
#Anemia of chronic disease and Fe deficiency: s/p 4 units of pRBCs
#One set of BCx with lactobacillus Casei: Likely contaminant
#Femoral line removed and Right IJ placed 09/07/23
#Hyperkaleia- Lokelma TF changed to Nepro, K better
#Hypomagnesemia, resolved
#Hypocalcemia- Normal Vit D level
#Positive LILIAN Screen: OP Rheum Eval
#CKD4, Cr at baseline. Sodium bicarb
#DM2: cont SSI/accuchecks/Lantus
#h/o small to moderate pericardial effusion
#Essential hypertension: cont Norvasc/doxazosin.
#Hyperlipidemia: Continue statin
#Coronary artery disease status post angioplasty: cont ASA/BB
#h/o C. diff.Negative this admit
#COVID pneumonia 2019 with ECMO and ventilator and 3-month hospital stay at [facility]
#Ambulatory dysfunction, wheelchair-bound since June 2019
#Spinal stenosis
#Overweight per BMI criteria
#Hypoalbuminemia
#Nutrition: s/p PEG 09/14/23. TFs started, now 60cc/hr. Changed to Nepro
#DVT Prophylaxis- SC Heparin
#FULL CODE
Discussed with RN
Anticipated Discharge: Within 24 hours
Subjective/Interval History
-
Date of Service: September 23, 2023
Objective Data
-
Vital Signs:
Vital Signs
Temp Pulse Resp BP Pulse Ox
98.3 F 80 16 147/63 99
09/23/23 07:14 09/23/23 08:33 09/23/23 08:33 09/23/23 08:15 09/23/23 08:33
I&O
09/22/23 09/23/23 09/24/23
06:59 06:59 06:59
Intake Total 2180 / 2180 1710 / 1710
Output Total 1500 / 1500 1950 / 1950 400 / 400
Balance 680 / 680 -240 / -240 -400 / -400
[2023-09-23] MEDS: DESENEX/MITRAZOL/ZEASORB 1 APPLIC TOPICAL ×2 (10:30→20:33)
--- NOTE | 2023-09-23 11:22 | CM ---
Call placed to [facility] ( ) to obtain determination or status of P2P which was to be done yesterday. Auth denial #[id number] not found; Spoke with Matilde at [facility] who will pass the request on to the precert team, however they are closed and
will not respond prior to 09/25/2023.
[2023-09-23 12:46] LABS: Glucose - Point of Care 128 mg/dl (70-99)
--- NOTE | 2023-09-23 13:44 | W.PN.PUL3 ---
Today's Communication / Plan
-
Negative fluid status noted which is encouraging
Consider Lasix intermittently
CPAP wean today CPAP 5, PS 12
Maintain throughout the day till 10 PM if possible. Rest on AC settings
Assessment
-
Mrs Shruti Rockwell is a 62 year old F with history of chronic hypoxic/hypercarbic resp failure s/p trach, post COVID illness, who p/w CC shortness of breath. The patient was recently discharged from 08/25/23 for mucus plugging. Family states that on
day of admission, the patient had decreased responsiveness. She is placed on Trilogy at night/trach collar through the day. She has been sleeping more and less conversive. They have noticed her exhaled TV on Trilogy reporting on avg <200cc
nightly. Her baseline settings are TV 350/PS8/40%/5+. Per medics, the patient was initially on 15 L but desaturated to the 80s. She had to be bagged and her saturations did improve. She is placed on vent in ER and saturations are now improved.
CXR appears similar to prior. We are consulted for eval 09/01/23.
Impression:
Hypoxemic and hypercapnic respiratory failure due to recurrent mucous plug/left lung atelectasis
Ventilator dependent respiratory failure
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
Status post emergent bronchoscopy at the bedside 08/18/2023-mucous plugs removed from the left
Pneumonia - SCx from 09/04 and BAL from 09/05 growing Serratia marcescens + Pseudomonas aeruginosa
Left pleural effusion
CHINTAN (Cr baseline 1.8)
Anemia-normocytic
Hypocalcemia
Hypernatremia
Metabolic and respiratory acidosis
Conditions present prior to admission:
Chronic hypercapnic/hypoxemic respiratory failure/chronic tracheostomy/nocturnal ventilation.
Severe Covid/ECMO 2019.
Diabetes.
Hypertension.
CAD/angioplasty 2020.
Recurrent UTI.
Ambulatory dysfunction/wheelchair-bound.
Chronic anemia.
Overweight.
Renal calculi.
Laparoscopic cholecystectomy 07/2020. Bilateral ureteroscopy with lithotripsy of the right renal stone and clearing of left renal pelvic fungal ball. Laminectomy. .
Plan/recommendations
Patient is tolerating volume-cycled ventilation
She does have better aeration in the left hemithorax today
Was able to tolerate about 5 hours of pressure support today on settings PS 12, PEEP of 8 on 09/21
Prior to today, she had not adequately weaned since 09/12
Presently appears to be comfortable
Oxygenation remained stable
Continues to have intermittent secretions. Rhonchi noted on exam
Suspect critical illness polyneuropathy
Negative fluid status noted
Chronic respiratory failure: Patient on trilogy ventilator at home. This admission settings where not optimal. Data from trilogy 08/16/23 showing usage 9.3 avg hours - MV 5.7 L/min - RR 23 - IPAP/EPAP 12.6/4.9 cm water - Avg VTe 249.1 - leak 32.5
L/min
Settings: Mode S, IPAP 13 EPAP 5
Continue with mechanical ventilation at nighttime with daily weaning trials
She tolerated 5 hours of pressure support wean 02/21
Will resume wean today, maintain throughout the day if possible till 10 PM
Depending on how she does, will consider decreasing pressure support wean and trach collar trials as indicated
Goal plateau pressure <30
Aspiration precautions
Routine tracheostomy tube care continues. #6 extra long tracheotomy noted
May require upsize of tracheotomy if airway pressures continue to be an issue, secretions continue to be an issue
Continue secretion clearance interventions: Persistent left lung atelectasis out despite maximal interventions.
CXR on AM of 09/05 shows persistent L-atelectasis --> improved on today's CXR (09/22/2023)
Dr Epstein performed bronchoscopy on 09/05 for pulmonary toilet purposes and BAL of LLL --> Cx grew Serratia marcescens + Pseudomonas aeruginosa
During bronch, there was a mucosal abnormality at her LLL at the secondary fran, which appeared white/shiny --> concern for dysplasia but cytology negative for malignancy.
Maximal secretion clearance interventions ongoing:
Sport bed
Continue VEST/cofflator with trach instillations with mucomyst and alb nebs q6h
DNs with prn doses for in between
Chest x-ray 09/11/2023: Reviewed, showed improved aeration on the left but persistent left sided atelectasis.
Repeat chest x-ray 09/17 shows continued significant atelectasis in the left hemithorax, slightly improved compared to last CXR from 09/11/2023
She may benefit from repeat bronchoscopy as clinically indicated
Occasionally repeat CXR
Bronchoscopy at the bedside Dr. Treviño 09/11/2023:, Tolerated well per no evidence for large airway secretions bilaterally. No endobronchial masses. Secondary fran left lower lobe patchy leukoplakia. Prior BAL cytopathology negative; this
region was never biopsied
Suspect chest x-ray is related to compressive atelectasis, possible some degree of pleural effusion/recovering pneumonia.
Tracheostomy has been exchanged:
Dr. Powell evaluated her on 09/05 --> #[id number] placed on 09/05 ([facility]); please make sure that extra tracheostomy is at bedside.
May require upsize if secretions and airway pressures continue to be an issue
Pneumonia: Resolved. Completed antibiotic therapy
Discontinued antibiotics on 09/03/2023: Afebrile. Cultures negative. Fever again on AM of 09/04 --> ABx restarted with cefepime; trach secs culture 09-04 + BAL 09-05 both growing Serratia marcescens + Pseudomonas aeruginosa.
Positive blood culture 08-30 suspect contaminant (Lactob casei)
ID has evaluated the patient, (completed 5 d cefepime 09-08 with levaquin on 09/09)-infectious disease has signed off.
Continue to monitor off antibiotics.
Swallowing dysfunction:
Recurrent microaspiration also has been contemplated in the past. She has been evaluated by speech therapy multiple times in the past. Diet has been modified.
Primary team ordered video barium swallow--> unfortunately patient is not safe to be placed back onto trach collar at this time.
Re-assess daily
DVT prophylaxis-heparin SQ
Early mobilization/bedside range of motion-baseline wheelchair-bound and ambulatory dysfunction
Nutritional support via PEG
DC planning to LTAC. Dr. Treviño updated her 09/13/2023 need for PEG tube and eventual placement.
Prognosis is very poor long-term. Depending on extent of family desire for aggressive care, hospice may be an option
Continue support as above
The patient was last seen in the pulmonary office by Kalpana Mobley POSTIE 06/01/2023 and has an appointment 09/07/2023 at 10:30 AM --> this will be re-scheduled.
I called the daughter, Martina, and I answered all her questions
Disposition efforts
Diagnostic Data:
CXR 04-27, reviewed, L basilar atelectasis
CXR 04-19, resolved total L atelectasis, currently back to chronic L basilar atelectasis. New tracheostomy
CXR 04-16, portable, L basilar atelectasis
CXR 04/11/22- . Complete opacification of the left hemithorax, likely on the basis of a large pleural effusion and compressive atelectasis upon the left lung. Mild right basilar pneumonia suspected
Chest x-ray 08/17/2023-near complete opacification throughout the left Jovanni thorax
Chest 09-18-2023: Interval removal of enteric tube; No significant interval change compared to the prior x-ray with near complete opacification of left hemithorax secondary to atelectasis and pleural fluid. Diffusely increased interstitial opacities
within the right lung with small amount of likely loculated pleural fluid.
CXR 09-22-2023: Low lung volumes with diffusely increased interstitial markings bilaterally with nonspecific patchy opacities seen within the right midlung. Compared to the prior study, there is improved aeration of the left lung. Persistent/confluent
left basilar opacity which may represent a small amount of pleural fluid and/or airspace consolidation.
Echocardiogram 01/10/22-EF 60-65%, no significant valvular disease, small pericardial effusion
Echocardiogram 03/22/22: Normal left ventricular chamber size. Normal left ventricular systolic�function. Normal regional wall motion. Normal left ventricular wall thickness.�Left ventricular ejection fraction is 60-65%. Mild tricuspid
regurgitation.�Small to moderate pericardial effusion without evidence of hemodynamic�compromise.�Compared to the previous echo Dec 2021, there is no significant change.
CT CHEST 04/11/22- �A moderate to large left pleural effusion and complete collapse/atelectasis of the left lung account for the left hemithorax opacification on the prior chest radiograph. Findings are in part likely secondary to mucous plugging
given the presence of opacification of the left mainstem bronchus and left upper and lower lobe bronchi, patchy opacifications right middle and lower lobe suspicious for pneumonia, moderate right pleural effusion and ill-defined sclerotic lesion
T12, osseous metastasis not completely excluded
CT CHEST 03/22/22 - There is no CT evidence for pulmonary embolism. No aortic dissection.There are extremely large bilateral pleural effusions right greater than left and associated bilateral consolidation most prominent in the left lower
lobe.Cardiomegaly. Increased pericardial effusion.
CT chest 08/17/2023-occluded left mainstem bronchus presumably mucous plugs with complete atelectasis left lung moderate size left pleural effusion, small to moderate right pleural effusion
VSE 04/28/22: No aspiration. Laryngeal penetration with cough with thin liquids by cup.
Spirometry 09/09/21-FEV1 790 mL-36%, FVC 790 mL 27%. Some difficulties with maneuver and thus may offer unreliability. Severe restriction.�������
PFT 02/08/22-FVC 1.01/30%, FEV1 0.70/35%, ratio 69%, unable to perform lung volumes and diffusing capacity.
Subjective Data
-
Date of Service:
Date of Service: September 23, 2023
Chief Complaint: Pulmonary Follow Up (Acute respiratory failure/mucous plugging.)
Subjective:
Patient examined earlier this morning. Patient without complaints. Awake and following commands, moves extremities. Denies chest pain, nausea, abdominal pain
Objective Data
Data Reviewed
Vital Signs / I&O / Oxygen:
Vital Signs
Temp Pulse Resp BP Pulse Ox
98.1 F 93 34 147/63 96
09/23/23 11:26 09/23/23 11:45 09/23/23 11:45 09/23/23 08:15 09/23/23 11:45
Intake and Output
09/22/23 09/23/23 09/24/23
06:59 06:59 06:59
Intake Total 2180 / 2180 1710 / 1710
Output Total 1500 / 1500 1950 / 1950 400 / 400
Balance 680 / 680 -240 / -240 -400 / -400
SaO2 [CPAP/PSV] 98
SaO2 [A/C] 98
SaO2 96
Physical Exam
General: Comfortable
HEENT: Normocephalic, Anicteric and Tracheotomy (#6 XLT)
Cardiovascular: S1-S2, Murmur (n), Rub (n) and Peripheral Edema (Trace edema)
Respiratory: Wheeze (Negative), Crackles (Few at base), Rhonchi (Few), Non-Labored Respirations and Other (Tracheostomy)
GI: Soft, Non Distended, Non Tender, Normal Bowel Sounds and Feeding Tube (G-tube present)
Neurology: Awake, Alert, No Motor Deficits (Moves extremities, generally weak) and Other (Following commands)
Skin: Warm, Dry, Cyanosis (n) and Rash (n)
Labs/Micro/Reports
Lab Data
09/21/23 03:21
09/22/23 04:05
[2023-09-23 18:35] LABS: Glucose - Point of Care 197 mg/dl (70-99)
[2023-09-23] MEDS: APRESOLINE 5 MG IV (19:06)
[2023-09-23] MEDS: FLUSH (NSS) 2 FLUSH IV (19:07)
[2023-09-23] MEDS: LIPITOR 20 MG TUBE (20:33)
[2023-09-23] MEDS: CARDURA 1 MG TUBE (20:36)
[2023-09-23 23:12] LABS: Glucose - Point of Care 158 mg/dl (70-99)
[2023-09-24] VITALS (17 sets, daily range): BP systolic 144–185; BP diastolic 59–87; BMI 25.9
[2023-09-24] MEDS: LANTUS 0.15 UNITS SC ×2 (00:15→23:51)
[2023-09-24] MEDS: NOVOLOG FLEXPEN-LOW RESISTANCE 1 UNITS SC ×3 (00:15→17:43)
[2023-09-24] MEDS: HEPARIN 5000 UNITS SC ×4 (00:16→23:52)
[2023-09-24] MEDS: ROBITUSSIN 200 MG TUBE ×4 (04:04→21:14)
[2023-09-24 06:11] LABS: Hematocrit 27.1 % (37.0-47.0); Hemoglobin 8.7 g/dL (12.0-16.0); Mean Corp Hgb Conc. 32.1 g/dL (33.0-37.0); Mean Corpuscular Hgb 28.6 pg (27.0-31.0); Mean Corpuscular Volume 89.1 fL (81.0-99.0); Mean Platelet Volume 10.8 fL (7.4-10.4); Platelet Count 226 10^3/uL (130-400); Red Blood Cell Count 3.04 10^6/uL (4.20-5.40); Red Cell Dist. Width 15.2 % (11.5-14.5); White Blood Cell Count 5.6 10^3/uL (4.8-10.8)
[2023-09-24] MEDS: NOVOLOG FLEXPEN-LOW RESISTANCE SC ×2 (06:28→23:46)
[2023-09-24 06:38] LABS: Glucose - Point of Care 123 mg/dl (70-99)
[2023-09-24 06:52] LABS: Blood Urea Nitrogen 53 mg/dl (7-17); Calcium 8.9 mg/dl (8.4-10.2); Carbon Dioxide 27 mmol/L (22-30); Chloride 104 mmol/L (98-107); Estimated Creatinine Clearance 30 ml/min; Glucose 117 mg/dl (70-99); Potassium 3.9 mmol/L (3.5-5.1); Sodium 139 mmol/L (135-145); eGFR 33.28
[2023-09-24] MEDS: DUONEB 3 ML INH ×2 (07:57→19:27)
--- NOTE | 2023-09-24 08:15 | W.PN.NEPH.PH ---
Today's Communication / Plan
-
Lasix reduced to 20 mg daily
Follow BMP
Assessment/Plan
-
Assessment:
Hyperkalemia
CKD (Cr baseline 2.1-2.6)
NAGMA
acute on chronic hypercapnic/hypoxemic respiratory failure
Anemia of chronic disease
T2DM
moderate pericardial effusion
HTN
DLDC.diff
Amb dysfunction
h/o kidney stones with stent placement in the past
Hypoalbuminemia
Plan:
Will decrease Lasix from 40 to 20 mg daily given azotemia, will follow weights close
GFR stable at baseline
lokelma continues re: hyperkalemia
maintain lower dose bicarbonate
Tube feeds were changed to Nepro to reduce potassium load
follow BMP
y
-
-
Date of Service: September 24, 2023
CC / HPI / ROS
-
Chief Complaint:
hyperkalemia
History of Present Illness:
K 3.9
Cr stable 1.7
BP stable
Review of Systems:
trach collar in place
TF 60/25 without issue
Incontinent
Weight stable
Labs
-
Labs:
WBC 5.6 10^3/uL (4.8-10.8) 09/24/23 05:41
RBC 3.04 10^6/uL (4.20-5.40) L 09/24/23 05:41
Hgb 8.7 g/dL (12.0-16.0) L 09/24/23 05:41
Hct 27.1 % (37.0-47.0) L 09/24/23 05:41
Plt Count 226 10^3/uL (130-400) 09/24/23 05:41
Sodium 139 mmol/L (135-145) 09/24/23 05:41
Potassium 3.9 mmol/L (3.5-5.1) 09/24/23 05:41
Chloride 104 mmol/L (98-107) 09/24/23 05:41
Carbon Dioxide 27 mmol/L (22-30) 09/24/23 05:41
BUN 53 mg/dl (7-17) H 09/24/23 05:41
Creatinine 1.7 mg/dL (0.6-1.0) H 09/24/23 05:41
eGFR 33.28 09/24/23 05:41
Glucose 117 mg/dl (70-99) H 09/24/23 05:41
Calcium 8.9 mg/dl (8.4-10.2) 09/24/23 05:41
Phosphorus 5.3 mg/dl (2.5-4.5) H 09/17/23 04:41
Xhp-W-Rzvbhsfqspe Pept 08921 pg/ml 09/11/23 04:57
Albumin 2.5 g/dl (3.5-5.0) L 08/31/23 20:18
Physical Exam
-
Vital Signs:
Vital Signs
Temp Pulse Resp BP Pulse Ox
99.0 F 74 16 148/61 99
09/24/23 03:47 09/24/23 08:00 09/24/23 08:00 09/24/23 04:00 09/24/23 08:00
Cardiovascular:: Regular rate and rhythm
Respiratory:: Bilateral: Coarse
Lung Excursion:: Normal
Abdomen:: Nontender and Soft
Bowel Sounds:: Normal
Extremity Edema:: None: Bilateral:
Bond Catheter: No
[2023-09-24] MEDS: FEOSOL 325 MG TUBE (08:38)
[2023-09-24] MEDS: NORVASC 10 MG TUBE (08:38)
[2023-09-24] MEDS: LOPRESSOR 50 MG TUBE (08:38)
[2023-09-24] MEDS: SODIUM BICARBONATE 650 MG TUBE ×2 (08:40→21:14)
[2023-09-24] MEDS: VITAMIN D3 (cholecalciferol) 25 MCG TUBE (08:40)
[2023-09-24] MEDS: VITAMIN B-12 1000 MCG TUBE (08:40)
[2023-09-24] MEDS: LOW STRENGTH ASPIRIN 81 MG TUBE (08:40)
[2023-09-24] MEDS: DESENEX/MITRAZOL/ZEASORB 1 APPLIC TOPICAL ×2 (08:40→21:13)
[2023-09-24] MEDS: LASIX 20 MG TUBE (08:47)
[2023-09-24] MEDS: LASIX TUBE (09:38)
[2023-09-24] MEDS: APRESOLINE 5 MG IV ×2 (09:50→13:55)
--- NOTE | 2023-09-24 10:25 | W.PN.HOSP.TC ---
Today's Communication/Plan
-
Medically stable for LTAC
She is weaning well now.
Assessment / Plan
Assessment / Plan
62-year-old female with chronic tracheostomy uses ventilator at night and trach collar during the day. She was admitted recently and was discharged on 08/25/2023 but she was admitted with acute on chronic hypoxic hypercapnic respiratory failure with
opacification of the left hemithorax. Patient underwent bronchoscopy on 08/18/2023 mucous plugs removed from the left. BAL grew Proteus and completed 7-day course of Unasyn per ID. She also had CHINTAN with CKD stage IV FLAVIO inhibitor was held.
Ultrasound of the kidney showed bilateral renal disease. She comes back with decreased responsiveness.
Awake and alert
Responds to questions
CVS S1 S2 Normal
Chest CTA
Abd Peg Tube
LE no edema
09/06/23 15:39 Bronch Left Lower Lobe Respiratory Culture - Final
Serratia marcescens
Pseudomonas aeruginosa
09/05/23 13:11 Tracheal Aspirate Respiratory Culture - Final
Serratia marcescens
Pseudomonas aeruginosa
Echo 08/18/23: EF 60 to 65%. Mild concentric LVH. Normal diastolic function. Normal RV size and function. Mild TR. Pulmonary pressure 30 cm of mercury. Small pericardial effusion without hemodynamic compromise
EGD (during PEG placement) 09/14/23: Normal esophagus. Scar in the greater curvature of the stomach. Normal examined duodenum. An externally removable PEG placement was successfully completed. No specimens collected.
#Acute on chronic hypercapnic/hypoxemic respiratory failure:
-With acute respiratory acidosis on admission
-PA[employer] the patient's tidal volume has decreased to an average of less than 200cc nightly (will be rectified with [employer]).
-Wean as tolerated during day time-7 hours yesterday
-VSE when patient can be on a trach collar
-s/p bronchoscopy 09/06/23
-ENT saw in consult and placed #6 Romero (Sergei) on 09/06/2023 as there was concern for air leak
-Respiratory cultures with pseudomonas and Serratia (treated as aspiration PNA)
-Pt completed 5 days cefepime. Patient to start renally dosed Levofloxacin if relapses/develops fever.
-Repeat Bronchoscopy 09/11/23 was unremarkable (no secretions, masses, or mucous plugging)
#Acute metabolic encephalopathy on admission (and intermittent since):
-EEG, CT of the head all negative
-likely due to inadequate TV at home causing acute on chronic hypercapnic and hypoxemic respiratory failure with acute respiratory acidosis (on 30/07 at home as per family)
#Anemia of chronic disease and Fe deficiency: s/p 4 units of pRBCs
#One set of BCx with lactobacillus Casei: Likely contaminant
#Femoral line removed and Right IJ placed 09/07/23
#Hyperkaleia- Lokelma on hold, TF changed to Nepro, K better
#Hypomagnesemia, resolved
#Hypocalcemia- Normal Vit D level
#Positive LILIAN Screen: OP Rheum Eval
#CKD4, Cr at baseline. Sodium bicarb
#DM2: cont SSI/accuchecks/Lantus
#h/o small to moderate pericardial effusion
#Essential hypertension: cont Norvasc/doxazosin.
#Hyperlipidemia: Continue statin
#Coronary artery disease status post angioplasty: cont ASA/BB
#h/o C. diff.Negative this admit
#COVID pneumonia 2019 with ECMO and ventilator and 3-month hospital stay at [facility]
#Ambulatory dysfunction, wheelchair-bound since June 2019
#Spinal stenosis
#Overweight per BMI criteria
#Hypoalbuminemia
#Nutrition: s/p PEG 09/14/23. now 60cc/hr Nepro
#DVT Prophylaxis- SC Heparin
#FULL CODE
Discussed with RN
Anticipated Discharge: Within 24 hours
Subjective/Interval History
-
Date of Service: September 24, 2023
Objective Data
-
Labs:
Laboratory Results
09/24/23
05:41
WBC 5.6
Hgb 8.7 L
Hct 27.1 L
Plt Count 226
Sodium 139
Potassium 3.9
Chloride 104
Carbon Dioxide 27
BUN 53 H
Creatinine 1.7 H
Glucose 117 H
Calcium 8.9
Vital Signs:
Vital Signs
Temp Pulse Resp BP Pulse Ox
98.8 F 101 32 182/79 99
09/24/23 07:46 09/24/23 09:50 09/24/23 09:17 09/24/23 09:50 09/24/23 08:50
I&O
09/23/23 09/24/23 09/25/23
06:59 06:59 06:59
Intake Total 1710 / 1710 1660 / 1660 120 / 120
Output Total 1949 / 1949 1899 / 1899
Balance -240 / -240 -240 / -240 120 / 120
[2023-09-24 11:53] LABS: Glucose - Point of Care 184 mg/dl (70-99)
--- NOTE | 2023-09-24 12:31 | W.PN.PUL3 ---
Today's Communication / Plan
-
Continue daily CPAP wean, attempt to maintain for 12 hours
Rest on AC settings overnight
Target euvolemia, negative fluid status as able
Bronchoscopy as indicated
Disposition efforts
Assessment
-
Mrs Shruti Rockwell is a 62 year old F with history of chronic hypoxic/hypercarbic resp failure s/p trach, post COVID illness, who p/w CC shortness of breath. The patient was recently discharged from 08/25/23 for mucus plugging. Family states that on
day of admission, the patient had decreased responsiveness. She is placed on Trilogy at night/trach collar through the day. She has been sleeping more and less conversive. They have noticed her exhaled TV on Trilogy reporting on avg <200cc
nightly. Her baseline settings are TV 350/PS8/40%/5+. Per medics, the patient was initially on 15 L but desaturated to the 80s. She had to be bagged and her saturations did improve. She is placed on vent in ER and saturations are now improved.
CXR appears similar to prior. We are consulted for eval 09/01/23.
Hypoxemic and hypercapnic respiratory failure due to recurrent mucous plug/left lung atelectasis
Ventilator dependent respiratory failure
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
Status post emergent bronchoscopy at the bedside 08/18/2023-mucous plugs removed from the left
Pneumonia - SCx from 09/04 and BAL from 09/05 growing Serratia marcescens + Pseudomonas aeruginosa
Left pleural effusion
CHINTAN (Cr baseline 1.8)
Anemia-normocytic
Hypocalcemia
Hypernatremia
Metabolic and respiratory acidosis
Conditions present prior to admission:
Chronic hypercapnic/hypoxemic respiratory failure/chronic tracheostomy/nocturnal ventilation.
Severe Covid/ECMO 2019.
Diabetes.
Hypertension.
CAD/angioplasty 2020.
Recurrent UTI.
Ambulatory dysfunction/wheelchair-bound.
Chronic anemia.
Overweight.
Renal calculi.
Laparoscopic cholecystectomy 07/2020. Bilateral ureteroscopy with lithotripsy of the right renal stone and clearing of left renal pelvic fungal ball. Laminectomy. .
Plan/recommendations
Patient is tolerating volume-cycled ventilation
She does have better aeration in the left hemithorax today
Was able to tolerate about:
5 hours of pressure support today on settings PS 12, PEEP of 8 on 09/21
8 hours of pressure support today on settings PS 12, PEEP of 8 on 09/22
Prior to today, she had not adequately weaned since 09/12
Presently appears to be comfortable
Oxygenation remained stable
Continues to have intermittent secretions. Rhonchi noted on exam
Suspect critical illness polyneuropathy
Negative fluid status noted
Chronic respiratory failure: Patient on trilogy ventilator at home. This admission settings where not optimal. Data from trilogy 08/16/23 showing usage 9.3 avg hours - MV 5.7 L/min - RR 23 - IPAP/EPAP 12.6/4.9 cm water - Avg VTe 249.1 - leak 32.5
L/min
Settings: Mode S, IPAP 13 EPAP 5
Continue with mechanical ventilation at nighttime with daily weaning trials
Will resume wean today, maintain throughout the day if possible till 10 PM
Depending on how she does, will consider decreasing pressure support wean and trach collar trials as indicated
Goal plateau pressure <30
Aspiration precautions
Routine tracheostomy tube care continues. #6 extra long tracheotomy noted
May require upsize of tracheotomy if airway pressures continue to be an issue, secretions continue to be an issue
Continue secretion clearance interventions: Persistent left lung atelectasis out despite maximal interventions.
CXR on AM of 09/05 shows persistent L-atelectasis --> improved on today's CXR (09/22/2023)
Dr Epstein performed bronchoscopy on 09/05 for pulmonary toilet purposes and BAL of LLL --> Cx grew Serratia marcescens + Pseudomonas aeruginosa
During bronch, there was a mucosal abnormality at her LLL at the secondary fran, which appeared white/shiny --> concern for dysplasia but cytology negative for malignancy.
Maximal secretion clearance interventions ongoing:
Sport bed
Continue VEST/cofflator with trach instillations with mucomyst and alb nebs q6h
DNs with prn doses for in between
Chest x-ray 09/11/2023: Reviewed, showed improved aeration on the left but persistent left sided atelectasis.
Repeat chest x-ray 09/17 shows continued significant atelectasis in the left hemithorax, slightly improved compared to last CXR from 09/11/2023
She may benefit from repeat bronchoscopy as clinically indicated
Occasionally repeat CXR
Bronchoscopy at the bedside Dr. Treviño 09/11/2023:, Tolerated well per no evidence for large airway secretions bilaterally. No endobronchial masses. Secondary fran left lower lobe patchy leukoplakia. Prior BAL cytopathology negative; this
region was never biopsied
Suspect chest x-ray is related to compressive atelectasis, possible some degree of pleural effusion/recovering pneumonia.
Tracheostomy has been exchanged:
Dr. Powell evaluated her on 09/05 --> #[id number] placed on 09/05 ([facility]); please make sure that extra tracheostomy is at bedside.
May require upsize if secretions and airway pressures continue to be an issue
Pneumonia: Resolved. Completed antibiotic therapy
Discontinued antibiotics on 09/03/2023: Afebrile. Cultures negative. Fever again on AM of 09/04 --> ABx restarted with cefepime; trach secs culture 09-04 + BAL 09-05 both growing Serratia marcescens + Pseudomonas aeruginosa.
Positive blood culture 08-30 suspect contaminant (Lactob casei)
ID has evaluated the patient, (completed 5 d cefepime 09-08 with levaquin on 09/09)-infectious disease has signed off.
Continue to monitor off antibiotics.
Swallowing dysfunction:
Recurrent microaspiration also has been contemplated in the past. She has been evaluated by speech therapy multiple times in the past. Diet has been modified.
Primary team ordered video barium swallow--> unfortunately patient is not safe to be placed back onto trach collar at this time.
Re-assess daily
DVT prophylaxis-heparin SQ
Early mobilization/bedside range of motion-baseline wheelchair-bound and ambulatory dysfunction
Nutritional support via PEG
DC planning to LTAC. Dr. Treviño updated her 09/13/2023 need for PEG tube and eventual placement.
Prognosis is very poor long-term. Depending on extent of family desire for aggressive care, hospice may be an option
Continue support as above
The patient was last seen in the pulmonary office by Kalpana Mobley NP 06/01/2023 and has an appointment 09/07/2023 at 10:30 AM --> this will be re-scheduled.
I called the daughter, Martina, and I answered all her questions
Reviewed with nursing and respiratory care
Disposition efforts
Diagnostic Data:
CXR 04-27, reviewed, L basilar atelectasis
CXR 04-19, resolved total L atelectasis, currently back to chronic L basilar atelectasis. New tracheostomy
CXR 04-16, portable, L basilar atelectasis
CXR 04/11/22- . Complete opacification of the left hemithorax, likely on the basis of a large pleural effusion and compressive atelectasis upon the left lung. Mild right basilar pneumonia suspected
Chest x-ray 08/17/2023-near complete opacification throughout the left Jovanni thorax
Chest 09-18-2023: Interval removal of enteric tube; No significant interval change compared to the prior x-ray with near complete opacification of left hemithorax secondary to atelectasis and pleural fluid. Diffusely increased interstitial opacities
within the right lung with small amount of likely loculated pleural fluid.
CXR 09-22-2023: Low lung volumes with diffusely increased interstitial markings bilaterally with nonspecific patchy opacities seen within the right midlung. Compared to the prior study, there is improved aeration of the left lung. Persistent/confluent
left basilar opacity which may represent a small amount of pleural fluid and/or airspace consolidation.
Echocardiogram 01/10/22-EF 60-65%, no significant valvular disease, small pericardial effusion
Echocardiogram 03/22/22: Normal left ventricular chamber size. Normal left ventricular systolic�function. Normal regional wall motion. Normal left ventricular wall thickness.�Left ventricular ejection fraction is 60-65%. Mild tricuspid
regurgitation.�Small to moderate pericardial effusion without evidence of hemodynamic�compromise.�Compared to the previous echo Dec 2021, there is no significant change.
CT CHEST 04/11/22- �A moderate to large left pleural effusion and complete collapse/atelectasis of the left lung account for the left hemithorax opacification on the prior chest radiograph. Findings are in part likely secondary to mucous plugging
given the presence of opacification of the left mainstem bronchus and left upper and lower lobe bronchi, patchy opacifications right middle and lower lobe suspicious for pneumonia, moderate right pleural effusion and ill-defined sclerotic lesion
T12, osseous metastasis not completely excluded
CT CHEST 03/22/22 - There is no CT evidence for pulmonary embolism. No aortic dissection.There are extremely large bilateral pleural effusions right greater than left and associated bilateral consolidation most prominent in the left lower
lobe.Cardiomegaly. Increased pericardial effusion.
CT chest 08/17/2023-occluded left mainstem bronchus presumably mucous plugs with complete atelectasis left lung moderate size left pleural effusion, small to moderate right pleural effusion
VSE 04/28/22: No aspiration. Laryngeal penetration with cough with thin liquids by cup.
Spirometry 09/09/21-FEV1 790 mL-36%, FVC 790 mL 27%. Some difficulties with maneuver and thus may offer unreliability. Severe restriction.�������
PFT 02/08/22-FVC 1.01/30%, FEV1 0.70/35%, ratio 69%, unable to perform lung volumes and diffusing capacity.
Subjective Data
-
Date of Service:
Date of Service: September 24, 2023
Chief Complaint: Pulmonary Follow Up (Acute respiratory failure/mucous plugging.)
Subjective:
Patient tolerated about 8 to 10 hours of CPAP wean yesterday. Per nursing, patient became tachycardic, rapid shallow breathing and complaining of shortness of breath towards the end. Intermittent episodes of apnea noted in the early part of the
morning per respiratory care
Objective Data
Data Reviewed
Vital Signs / I&O / Oxygen:
Vital Signs
Temp Pulse Resp BP Pulse Ox
98.5 F 89 37 172/83 98
09/24/23 11:28 09/24/23 11:46 09/24/23 11:46 09/24/23 11:19 09/24/23 11:51
Intake and Output
09/23/23 09/24/23 09/25/23
06:59 06:59 06:59
Intake Total 1710 / 1710 1660 / 1660 120 / 120
Output Total 1950 / 1950 1900 / 1900
Balance -240 / -240 -240 / -240 120 / 120
SaO2 [CPAP/PSV] 98
SaO2 [A/C] 99
SaO2 98
Physical Exam
General: Comfortable
HEENT: Normocephalic, Anicteric and Tracheotomy (#6 XLT)
Cardiovascular: S1-S2, Murmur (n), Rub (n) and Peripheral Edema (Trace edema)
Respiratory: Wheeze (Negative), Crackles (Few at base), Rhonchi (Few), Non-Labored Respirations and Other (Tracheostomy)
GI: Soft, Non Distended, Non Tender, Normal Bowel Sounds and Feeding Tube (G-tube present)
Neurology: Awake, Alert, No Motor Deficits (Moves extremities, generally weak) and Other (Following commands)
Skin: Warm, Dry, Cyanosis (n) and Rash (n)
Labs/Micro/Reports
Lab Data
09/24/23 05:41
09/24/23 05:41
--- NOTE | 2023-09-24 13:44 | W.PN.UPDATE ---
Update Note
Progress Note Update
BP on the higher side
D/W Renal
Changed metoprolol and Cardiolite corrected for twice daily
I will also increase as needed hydralazine
total time spent over 50 min today
[2023-09-24] MEDS: FLUSH (NSS) 2 FLUSH IV (13:55)
--- NOTE | 2023-09-24 14:04 | PTCARENOTE ---
Patient's SBP persistently > 160 even after receiving PRN hydralazine this am. Nw orders obtained and STAT dose of Hydralazine given,
[2023-09-24 17:50] LABS: Glucose - Point of Care 191 mg/dl (70-99)
--- NOTE | 2023-09-24 19:18 | PTCARENOTE ---
assumed care of pt this am,CPAP initiated at approx 0800 and pt continues tolerate this throughout the day. Pt does tap on her chest when she needs to be suctioned. Suctioning thick brown tinged secretions this afternoon. Pt was in better spirits
today and making eye contact, interacting and responding to questions. Though she is confused in conversation at times asking to walk to bathroom and once removed purewick and had it near her ear as if it was her TV remote. Pt reoriented and
redirected. here to visit and then daughter is at bedside now. Pt continues to have rectal trumpet intact which is patent for liq brown stool. Purewick for clear yellow urine. Pt's BP meds adjusted to manage BPs
[2023-09-24] MEDS: COREG 25 MG TUBE (21:13)
[2023-09-24] MEDS: LIPITOR 20 MG TUBE (21:14)
[2023-09-24 23:03] LABS: Glucose - Point of Care 147 mg/dl (70-99)
[2023-09-25] VITALS (16 sets, daily range): BP systolic 142–181; BP diastolic 55–101; BMI 26.3
[2023-09-25] MEDS: ROBITUSSIN 200 MG TUBE ×4 (02:05→20:14)
[2023-09-25 06:21] LABS: Glucose - Point of Care 150 mg/dl (70-99)
[2023-09-25] MEDS: NOVOLOG FLEXPEN-LOW RESISTANCE 1 UNITS SC ×2 (06:23→12:39)
[2023-09-25 07:05] LABS: Blood Urea Nitrogen 52 mg/dl (7-17); Carbon Dioxide 28 mmol/L (22-30); Chloride 103 mmol/L (98-107); Estimated Creatinine Clearance 32 ml/min; Glucose 129 mg/dl (70-99); Potassium 4.1 mmol/L (3.5-5.1); Sodium 139 mmol/L (135-145); eGFR 35.79
--- NOTE | 2023-09-25 07:26 | W.PN.HOSP.TC ---
Today's Communication/Plan
-
see bold
Assessment / Plan
Assessment / Plan
62-year-old female with chronic tracheostomy uses ventilator at night and trach collar during the day. She was admitted recently and was discharged on 08/25/2023 but she was admitted with acute on chronic hypoxic hypercapnic respiratory failure with
opacification of the left hemithorax. Patient underwent bronchoscopy on 08/18/2023 mucous plugs removed from the left. BAL grew Proteus and completed 7-day course of Unasyn per ID. She also had CHINTAN with CKD stage IV FLAVIO inhibitor was held.
Ultrasound of the kidney showed bilateral renal disease. She comes back with decreased responsiveness.
Gen: NAD, Awake and alert, appears chronically ill
Eyes: EOMI, PERRLA, no scleral icterus.
Neck: supple.
CV: RRR, +S1/S2, no m/r/g.
Resp: CTAB, no rales, wheezes, or rhonchi.
Abd: +BS, soft, NT, ND
Skin: No rashes.
Neuro: CN 2-12 intact, non-focal.
Psych: calm.
09/18/23 12:58 Feces/Stool C. difficile GDH Antigen & Toxins - Final
Negative for toxigenic C.difficile
09/06/23 15:39 Bronch Left Lower Lobe Fungal Culture - Preliminary
Culture in progress.
Positive cultures are reported as soon as detected.
Final report to follow in four to five weeks.
09/05/23 09:11 Blood/Venous Blood Culture - Final
No Growth - Final Report
09/05/23 09:00 Blood/Venous Blood Culture - Final
No Growth - Final Report
09/07/23 06:00 Bronch Left Lower Lobe Acid Fast Bacilli Smear - Preliminary
09/07/23 06:00 Bronch Left Lower Lobe Acid Fast Bacilli Culture - Preliminary
09/06/23 15:39 Bronch Left Lower Lobe Respiratory Culture - Final
Serratia marcescens
Pseudomonas aeruginosa
09/06/23 15:39 Bronch Left Lower Lobe Gram Stain - Final
09/05/23 13:11 Tracheal Aspirate Respiratory Culture - Final
Serratia marcescens
Pseudomonas aeruginosa
09/05/23 13:11 Tracheal Aspirate Gram Stain - Final
08/31/23 14:39 Blood/Venous Blood Culture - Final
Lactobacillus casei
08/31/23 14:39 Blood/Venous Gram Stain - Final
08/31/23 14:39 Blood/Venous Blood Culture - Final
No Growth - Final Report
09/01/23 03:39 Nose MRSA Screen - Final
No Methicillin Resistant Staphylococcus aureus isolated.
08/31/23 14:39 Urine Urine Culture - Final
No Significant Growth
Echo 08/18/23: EF 60 to 65%. Mild concentric LVH. Normal diastolic function. Normal RV size and function. Mild TR. Pulmonary pressure 30 cm of mercury. Small pericardial effusion without hemodynamic compromise
EGD (during PEG placement) 09/14/23: Normal esophagus. Scar in the greater curvature of the stomach. Normal examined duodenum. An externally removable PEG placement was successfully completed. No specimens collected.
#Acute on chronic hypercapnic/hypoxemic respiratory failure:
-With acute respiratory acidosis on admission
-PRICING STRATEGIST the patient's tidal volume has decreased to an average of less than 200cc nightly (will be rectified with [employer]).
-Wean as tolerated during day time-7 hours yesterday
-VSE when patient can be on a trach collar
-s/p bronchoscopy 09/06/23
-ENT saw in consult and placed #6 Shiley (Long) on 09/06/2023 as there was concern for air leak
-Respiratory cultures with pseudomonas and Serratia (treated as aspiration PNA)
-Pt completed 5 days cefepime. Patient to start renally dosed Levofloxacin if relapses/develops fever.
-Repeat Bronchoscopy 09/11/23 was unremarkable (no secretions, masses, or mucous plugging)
#Acute metabolic encephalopathy on admission (and intermittent since):
-EEG, CT of the head all negative
-likely due to inadequate TV at home causing acute on chronic hypercapnic and hypoxemic respiratory failure with acute respiratory acidosis (on 30/07 at home as per family)
#Anemia of chronic disease and Fe deficiency: s/p 4 units of pRBCs
#One set of BCx with lactobacillus Casei: Likely contaminant
#Femoral line removed and Right IJ placed 09/07/23
#Hyperkalemia- Lokelma on hold, TF changed to Nepro, K better
#Hypomagnesemia, resolved
#Hypocalcemia- Normal Vit D level
#Positive LILIAN Screen: OP Rheum Eval
#CKD4, Cr at baseline. Sodium bicarb
#DM2: cont SSI/accuchecks/Lantus
#h/o small to moderate pericardial effusion
#Essential hypertension: cont Norvasc/doxazosin.
#Hyperlipidemia: Continue statin
#Coronary artery disease status post angioplasty: cont ASA/BB
#h/o C. diff.Negative this admit
#COVID pneumonia 2019 with ECMO and ventilator and 3-month hospital stay at [facility]
#Ambulatory dysfunction, wheelchair-bound since June 2019
#Spinal stenosis
#Overweight per BMI criteria
#Hypoalbuminemia
#Nutrition: s/p PEG 09/14/23. now 60cc/hr Nepro
FULL/Heparin
Has remained medically stable for d/c since 09/18/23. Case management aware.
Anticipated Discharge: Today
Subjective/Interval History
-
Date of Service: September 25, 2023
No new events.
Objective Data
-
Labs:
Laboratory Results
09/25/23
06:14
Sodium 139
Potassium 4.1
Chloride 103
Carbon Dioxide 28
BUN 52 H
Creatinine 1.6 H
Glucose 129 H
Calcium 9.0
Vital Signs:
Vital Signs
Temp Pulse Resp BP Pulse Ox
98.3 F 69 16 167/72 98
09/25/23 03:40 09/25/23 06:00 09/25/23 06:00 09/25/23 06:00 09/25/23 06:00
I&O
09/24/23 09/25/23 09/26/23
06:59 06:59 06:59
Intake Total 1660 / 1660 900 / 900
Output Total 1900 / 1900 775 / 775
Balance -240 / -240 125 / 125
[2023-09-25] MEDS: DUONEB 3 ML INH ×2 (07:30→19:45)
[2023-09-25] MEDS: NORVASC 10 MG TUBE (08:46)
[2023-09-25] MEDS: HEPARIN 5000 UNITS SC ×3 (08:48→23:21)
[2023-09-25] MEDS: VITAMIN B-12 1000 MCG TUBE (08:48)
[2023-09-25] MEDS: SODIUM BICARBONATE 650 MG TUBE ×2 (08:48→20:14)
[2023-09-25] MEDS: LASIX 20 MG TUBE (08:48)
[2023-09-25] MEDS: FEOSOL 325 MG TUBE (08:48)
[2023-09-25] MEDS: LOW STRENGTH ASPIRIN 81 MG TUBE (08:48)
[2023-09-25] MEDS: COREG 25 MG TUBE ×2 (08:49→20:13)
[2023-09-25] MEDS: DESENEX/MITRAZOL/ZEASORB 1 APPLIC TOPICAL ×2 (08:49→23:19)
[2023-09-25] MEDS: VITAMIN D3 (cholecalciferol) 25 MCG TUBE (08:50)
--- NOTE | 2023-09-25 09:54 | W.PN.NEPH.PH ---
Today's Communication / Plan
-
follow BMP
Assessment/Plan
-
Assessment:
Hyperkalemia
CKD (Cr baseline 2.1-2.6)
NAGMA
acute on chronic hypercapnic/hypoxemic respiratory failure
Anemia of chronic disease
T2DM
moderate pericardial effusion
HTN
DLDC.diff
Amb dysfunction
h/o kidney stones with stent placement in the past
Hypoalbuminemia
Plan:
off lokelma
follow BMP
await LTAC
-
-
Date of Service: September 25, 2023
CC / HPI / ROS
-
Chief Complaint:
hyperkalemia
History of Present Illness:
K 4.1
Cr stable 1.6
BP stable
Review of Systems:
trach collar in place
TF 60/25 without issue
Incontinent
Weight stable
Labs
-
Labs:
WBC 5.6 10^3/uL (4.8-10.8) 09/24/23 05:41
RBC 3.04 10^6/uL (4.20-5.40) L 09/24/23 05:41
Hgb 8.7 g/dL (12.0-16.0) L 09/24/23 05:41
Hct 27.1 % (37.0-47.0) L 09/24/23 05:41
Plt Count 226 10^3/uL (130-400) 09/24/23 05:41
Sodium 139 mmol/L (135-145) 09/25/23 06:14
Potassium 4.1 mmol/L (3.5-5.1) 09/25/23 06:14
Chloride 103 mmol/L (98-107) 09/25/23 06:14
Carbon Dioxide 28 mmol/L (22-30) 09/25/23 06:14
BUN 52 mg/dl (7-17) H 09/25/23 06:14
Creatinine 1.6 mg/dL (0.6-1.0) H 09/25/23 06:14
eGFR 35.79 09/25/23 06:14
Glucose 129 mg/dl (70-99) H 09/25/23 06:14
Calcium 9.0 mg/dl (8.4-10.2) 09/25/23 06:14
Phosphorus 5.3 mg/dl (2.5-4.5) H 09/17/23 04:41
[id number] Pept 31475 pg/ml 09/11/23 04:57
Albumin 2.5 g/dl (3.5-5.0) L 08/31/23 20:18
Physical Exam
-
Vital Signs:
Vital Signs
Temp Pulse Resp BP Pulse Ox
98.3 F 61 16 155/59 99
09/25/23 07:39 09/25/23 08:49 09/25/23 07:35 09/25/23 08:49 09/25/23 07:35
Cardiovascular:: Regular rate and rhythm
Respiratory:: Bilateral: Coarse
Lung Excursion:: Normal
Abdomen:: Nontender and Soft
Bowel Sounds:: Normal
Extremity Edema:: None: Bilateral:
[2023-09-25 12:37] LABS: Glucose - Point of Care 186 mg/dl (70-99)
[2023-09-25] MEDS: APRESOLINE 10 MG IV (12:42)
[2023-09-25] MEDS: FLUSH (NSS) 2 FLUSH IV (12:44)
--- NOTE | 2023-09-25 14:04 | W.PN.PUL3 ---
Today's Communication / Plan
-
CXR tomorrow
Continue daily CPAP wean, attempt to maintain for 12 hours
Rest on AC settings overnight
Target euvolemia, negative fluid status as able
Bronchoscopy as indicated
Disposition efforts
Assessment
-
Mrs Shruti Rockwell is a 62 year old F with history of chronic hypoxic/hypercarbic resp failure s/p trach, post COVID illness, who p/w CC shortness of breath. The patient was recently discharged from 08/25/23 for mucus plugging. Family states that on
day of admission, the patient had decreased responsiveness. She is placed on Trilogy at night/trach collar through the day. She has been sleeping more and less conversive. They have noticed her exhaled TV on Trilogy reporting on avg <200cc
nightly. Her baseline settings are TV 350/PS8/40%/5+. Per medics, the patient was initially on 15 L but desaturated to the 80s. She had to be bagged and her saturations did improve. She is placed on vent in ER and saturations are now improved.
CXR appears similar to prior. We are consulted for eval 09/01/23.
Hypoxemic and hypercapnic respiratory failure due to recurrent mucous plug/left lung atelectasis
Ventilator dependent respiratory failure
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
Status post emergent bronchoscopy at the bedside 08/18/2023-mucous plugs removed from the left
Pneumonia - SCx from 09/04 and BAL from 09/05 growing Serratia marcescens + Pseudomonas aeruginosa
Left pleural effusion
CHINTAN (Cr baseline 1.8) - CHINTAN now resolved
Anemia-normocytic
Hypocalcemia
Hypernatremia - resolved
Metabolic and respiratory acidosis
Conditions present prior to admission:
Chronic hypercapnic/hypoxemic respiratory failure/chronic tracheostomy/nocturnal ventilation.
Severe Covid/ECMO 2019.
Diabetes.
Hypertension.
CAD/angioplasty 2020.
Recurrent UTI.
Ambulatory dysfunction/wheelchair-bound.
Chronic anemia.
Overweight.
Renal calculi.
Laparoscopic cholecystectomy 07/2020. Bilateral ureteroscopy with lithotripsy of the right renal stone and clearing of left renal pelvic fungal ball. Laminectomy. .
Plan/recommendations
Patient is tolerating volume-cycled ventilation
She does have better aeration in the left hemithorax
Was able to tolerate about:
5 hours of pressure support today on settings PS 12, PEEP of 8 on 09/21
8 hours of pressure support today on settings PS 12, PEEP of 8 on 09/22
Prior to today, she had not adequately weaned since 09/12
Presently appears to be comfortable
Oxygenation remained stable
Continues to have intermittent secretions. Rhonchi noted on exam
Suspect critical illness polyneuropathy
Negative fluid status noted
Chronic respiratory failure: Patient on trilogy ventilator at home. This admission settings where not optimal. Data from trilogy 08/16/23 showing usage 9.3 avg hours - MV 5.7 L/min - RR 23 - IPAP/EPAP 12.6/4.9 cm water - Avg VTe 249.1 - leak 32.5
L/min
Settings: Mode S, IPAP 13 EPAP 5
Continue with mechanical ventilation at nighttime with daily weaning trials
Will resume wean today, maintain throughout the day if possible till 10 PM
Depending on how she does, will consider decreasing pressure support wean and trach collar trials as indicated
Goal plateau pressure <30
Aspiration precautions
Routine tracheostomy tube care continues. #6 extra long tracheotomy noted
May require upsize of tracheotomy if airway pressures continue to be an issue, secretions continue to be an issue
Continue secretion clearance interventions: Persistent left lung atelectasis out despite maximal interventions.
CXR on AM of 09/05 shows persistent L-atelectasis --> improved on today's CXR (09/22/2023)
Dr Epstein performed bronchoscopy on 09/05 for pulmonary toilet purposes and BAL of LLL --> Cx grew Serratia marcescens + Pseudomonas aeruginosa
During bronch, there was a mucosal abnormality at her LLL at the secondary fran, which appeared white/shiny --> concern for dysplasia but cytology negative for malignancy.
Maximal secretion clearance interventions ongoing:
Sport bed
Continue VEST/cofflator with trach instillations with mucomyst and alb nebs q6h
DNs with prn doses for in between
Chest x-ray 09/11/2023: Reviewed, showed improved aeration on the left but persistent left sided atelectasis.
Repeat chest x-ray 09/17 shows continued significant atelectasis in the left hemithorax, slightly improved compared to last CXR from 09/11/2023
She may benefit from repeat bronchoscopy as clinically indicated
Occasionally repeat CXR - repeat CXR tomorrow
Bronchoscopy at the bedside Dr. Treviño 09/11/2023:, Tolerated well per no evidence for large airway secretions bilaterally. No endobronchial masses. Secondary fran left lower lobe patchy leukoplakia. Prior BAL cytopathology negative; this
region was never biopsied
Suspect chest x-ray is related to compressive atelectasis, possible some degree of pleural effusion/recovering pneumonia.
Tracheostomy has been exchanged:
Dr. Powell evaluated her on 09/05 --> #[id number] placed on 09/05 ([facility]); please make sure that extra tracheostomy is at bedside.
May require upsize if secretions and airway pressures continue to be an issue
Pneumonia: Resolved. Completed antibiotic therapy
Discontinued antibiotics on 09/03/2023: Afebrile. Cultures negative. Fever again on AM of 09/04 --> ABx restarted with cefepime; trach secs culture 09-04 + BAL 09-05 both growing Serratia marcescens + Pseudomonas aeruginosa.
Positive blood culture 08-30 suspect contaminant (Lactob casei)
ID has evaluated the patient, (completed 5 d cefepime 09-08 with levaquin on 09/09)-infectious disease has signed off.
Continue to monitor off antibiotics.
Swallowing dysfunction:
Recurrent microaspiration also has been contemplated in the past. She has been evaluated by speech therapy multiple times in the past. Diet has been modified.
Primary team ordered video barium swallow--> unfortunately patient is not safe to be placed back onto trach collar at this time.
Re-assess daily
DVT prophylaxis-heparin SQ
Early mobilization/bedside range of motion-baseline wheelchair-bound and ambulatory dysfunction
Nutritional support via PEG
DC planning to LTAC. Dr. Treviño updated her 09/13/2023 need for PEG tube and eventual placement.
Prognosis is very poor long-term. Depending on extent of family desire for aggressive care, hospice may be an option
Continue support as above
The patient was last seen in the pulmonary office by Kalpana Mobley NP 06/01/2023 and has an appointment 09/07/2023 at 10:30 AM --> this will be re-scheduled.
I called the daughter, Martina, and I answered all her questions
Reviewed with nursing and respiratory care
Disposition efforts
Total time spent today was 50 minutes for this encounter. Time includes reviewing laboratory test/imaging results, reviewing pertinent medical records, obtaining and reviewing medical history, performing an appropriate exam, ordering medications,
tests and procedures. Time also includes documentation of this encounter, coordinating patient care and communicating with other healthcare professionals. Total time does not include separately billed tests performed on this date of service.
Diagnostic Data:
CXR 04-27, reviewed, L basilar atelectasis
CXR 04-19, resolved total L atelectasis, currently back to chronic L basilar atelectasis. New tracheostomy
CXR 04-16, portable, L basilar atelectasis
CXR 04/11/22- . Complete opacification of the left hemithorax, likely on the basis of a large pleural effusion and compressive atelectasis upon the left lung. Mild right basilar pneumonia suspected
Chest x-ray 08/17/2023-near complete opacification throughout the left Jovanni thorax
Chest 09-18-2023: Interval removal of enteric tube; No significant interval change compared to the prior x-ray with near complete opacification of left hemithorax secondary to atelectasis and pleural fluid. Diffusely increased interstitial opacities
within the right lung with small amount of likely loculated pleural fluid.
CXR 09-22-2023: Low lung volumes with diffusely increased interstitial markings bilaterally with nonspecific patchy opacities seen within the right midlung. Compared to the prior study, there is improved aeration of the left lung. Persistent/confluent
left basilar opacity which may represent a small amount of pleural fluid and/or airspace consolidation.
Echocardiogram 01/10/22-EF 60-65%, no significant valvular disease, small pericardial effusion
Echocardiogram 03/22/22: Normal left ventricular chamber size. Normal left ventricular systolic�function. Normal regional wall motion. Normal left ventricular wall thickness.�Left ventricular ejection fraction is 60-65%. Mild tricuspid
regurgitation.�Small to moderate pericardial effusion without evidence of hemodynamic�compromise.�Compared to the previous echo Dec 2021, there is no significant change.
CT CHEST 04/11/22- �A moderate to large left pleural effusion and complete collapse/atelectasis of the left lung account for the left hemithorax opacification on the prior chest radiograph. Findings are in part likely secondary to mucous plugging
given the presence of opacification of the left mainstem bronchus and left upper and lower lobe bronchi, patchy opacifications right middle and lower lobe suspicious for pneumonia, moderate right pleural effusion and ill-defined sclerotic lesion
T12, osseous metastasis not completely excluded
CT CHEST 03/22/22 - There is no CT evidence for pulmonary embolism. No aortic dissection.There are extremely large bilateral pleural effusions right greater than left and associated bilateral consolidation most prominent in the left lower
lobe.Cardiomegaly. Increased pericardial effusion.
CT chest 08/17/2023-occluded left mainstem bronchus presumably mucous plugs with complete atelectasis left lung moderate size left pleural effusion, small to moderate right pleural effusion
VSE 04/28/22: No aspiration. Laryngeal penetration with cough with thin liquids by cup.
Spirometry 09/09/21-FEV1 790 mL-36%, FVC 790 mL 27%. Some difficulties with maneuver and thus may offer unreliability. Severe restriction.�������
PFT 02/08/22-FVC 1.01/30%, FEV1 0.70/35%, ratio 69%, unable to perform lung volumes and diffusing capacity.
Subjective Data
-
Date of Service:
Date of Service: September 25, 2023
Chief Complaint: Pulmonary Follow Up (Acute respiratory failure/mucous plugging.)
Subjective:
Patient seen and evaluated today at bedside. Patient's daughter and are at bedside and I answered all of their questions. Patient currently on mechanical ventilation via tracheostomy on VC/AC: At 16/450/40%/5, with PIP 36 cmH2O, f: 16
breaths/min, with VTe of 453 mL. Patient in no acute distress, sleeping comfortably. Patient denies chest pain, headache, abdominal pain. Daughter says that the patient's been having more secretions today, however when respiratory use the
cofflator earlier there was minimal secretions that were coughed up.
Review of Systems
General: Other (Negative unless mentioned above)
Objective Data
Data Reviewed
Vital Signs / I&O / Oxygen:
Vital Signs
Temp Pulse Resp BP Pulse Ox
99.8 F 82 16 177/75 99
09/25/23 11:13 09/25/23 12:42 09/25/23 07:35 09/25/23 12:42 09/25/23 07:35
Intake and Output
09/24/23 09/25/23 09/26/23
06:59 06:59 06:59
Intake Total 1660 / 1660 900 / 900
Output Total 1900 / 1900 775 / 775
Balance -240 / -240 125 / 125
SaO2 [CPAP/PSV] 97
SaO2 [A/C] 99
SaO2 99
Physical Exam
General: Comfortable
HEENT: Normocephalic, Anicteric and Tracheotomy (#6 XLT)
Cardiovascular: S1-S2, Murmur (n), Rub (n) and Peripheral Edema (Trace edema)
Respiratory: Wheeze (Negative), Crackles (Few at base), Rhonchi (Few), Non-Labored Respirations and Other (Tracheostomy)
GI: Soft, Non Distended, Non Tender, Normal Bowel Sounds and Feeding Tube (G-tube present)
Neurology: Awake, Alert, No Motor Deficits (Moves extremities, generally weak) and Other (Following commands)
Skin: Warm, Dry, Cyanosis (n) and Rash (n)
Labs/Micro/Reports
Lab Data
09/24/23 05:41
09/25/23 06:14
Microbiology
09/06/23 15:39 Bronch Left Lower Lobe Fungal Culture - Preliminary
Culture in progress.
Positive cultures are reported as soon as detected.
Final report to follow in four to five weeks.
--- NOTE | 2023-09-25 15:05 | CM ---
Patient with Hx trach collar daytime, trilogy/mechanical ventilation at night, ambulatory dysfunction, w/c bound with Dx Acute on chronic hypercapnic/hypoxemic respiratory failure, Acute metabolic encephalopathy. CPAP wean trials. Tube feeds.
Messages with Dr Mckinley, Physician Advisor; she made 3 attempts to obtain outcome of Peer to Peer Appeal with [facility], the assigned Med Director Dr Jack is out today & will be back tomorrow. They were unwilling to reassign the case to
someone else.
Met with patient and daughter Martina; the patient remained sleeping throughout. Daughter stating she is aware of patient's weaning efforts yesterday and today. Provided update to daughter that the status of the Peer to Peer Appeal is still
pending. Offered that she could initiate a family appeal and she indicated willingness to do that. Provided Martina with reference # and phone # to [facility] appeals dept. Discussed that if appeals fail that family consider subacute SNF such as
[facility] or [facility] and Martina agrees to consider.
Preliminary referrals placed for [facility] and [facility].
Plan follow up status of Peer to Peer appeal tomorrow.
Plan follow up with daughter to determine if family appeal was initiated.
[2023-09-25 18:25] LABS: Glucose - Point of Care 136 mg/dl (70-99)
[2023-09-25] MEDS: NOVOLOG FLEXPEN-LOW RESISTANCE SC (18:30)
[2023-09-25] MEDS: LIPITOR 20 MG TUBE (20:13)
[2023-09-25 22:59] LABS: Glucose - Point of Care 175 mg/dl (70-99)
[2023-09-25] MEDS: LANTUS 0.15 UNITS SC (23:20)
[2023-09-25] MEDS: VENTOLIN NEBULES 2.5 MG INH (23:23)
[2023-09-26] VITALS (16 sets, daily range): BP systolic 127–181; BP diastolic 59–133; BMI 25.8
[2023-09-26] MEDS: APRESOLINE 10 MG IV ×3 (00:05→16:05)
[2023-09-26] MEDS: NOVOLOG FLEXPEN-LOW RESISTANCE 1 UNITS SC (00:13)
[2023-09-26 00:24] LABS: Glucose - Point of Care 163 mg/dl (70-99)
--- NOTE | 2023-09-26 00:35 | PTCARENOTE ---
Pt with BP reading of 163/68. Pt given dose of ordered PRN hydralazine 10mg IV, for systolic BP >160. Pt asymptomatic.
[2023-09-26] MEDS: ROBITUSSIN 200 MG TUBE ×4 (06:11→20:03)
[2023-09-26 06:35] LABS: Glucose - Point of Care 142 mg/dl (70-99)
[2023-09-26 06:52] LABS: Blood Urea Nitrogen 53 mg/dl (7-17); Carbon Dioxide 32 mmol/L (22-30); Chloride 101 mmol/L (98-107); Estimated Creatinine Clearance 30 ml/min; Glucose 128 mg/dl (70-99); Sodium 139 mmol/L (135-145); eGFR 33.28
[2023-09-26 07:02] LABS: Calcium 9.3 mg/dl (8.4-10.2)
[2023-09-26] MEDS: NOVOLOG FLEXPEN-LOW RESISTANCE SC ×2 (07:04→18:12)
[2023-09-26] MEDS: DUONEB 3 ML INH ×2 (07:23→19:41)
--- NOTE | 2023-09-26 07:32 | W.PN.HOSP.TC ---
Today's Communication/Plan
-
d/c
Assessment / Plan
Assessment / Plan
62-year-old female with chronic tracheostomy uses ventilator at night and trach collar during the day. She was admitted recently and was discharged on 08/25/2023 but she was admitted with acute on chronic hypoxic hypercapnic respiratory failure with
opacification of the left hemithorax. Patient underwent bronchoscopy on 08/18/2023 mucous plugs removed from the left. BAL grew Proteus and completed 7-day course of Unasyn per ID. She also had CHINTAN with CKD stage IV FLAVIO inhibitor was held.
Ultrasound of the kidney showed bilateral renal disease. She comes back with decreased responsiveness.
Gen: remains NAD, Awake and alert, appears chronically ill
Eyes: EOMI, PERRLA, no scleral icterus.
Neck: supple.
CV: RRR, +S1/S2, no m/r/g.
Resp: remains CTAB, no rales, wheezes, or rhonchi.
Abd: +BS, soft, NT, ND
Skin: No rashes.
Neuro: CN 2-12 intact, non-focal.
Psych: normal mood and affect
09/18/23 12:58 Feces/Stool C. difficile GDH Antigen & Toxins - Final
Negative for toxigenic C.difficile
09/06/23 15:39 Bronch Left Lower Lobe Fungal Culture - Preliminary
Culture in progress.
Positive cultures are reported as soon as detected.
Final report to follow in four to five weeks.
09/05/23 09:11 Blood/Venous Blood Culture - Final
No Growth - Final Report
09/05/23 09:00 Blood/Venous Blood Culture - Final
No Growth - Final Report
09/07/23 06:00 Bronch Left Lower Lobe Acid Fast Bacilli Smear - Preliminary
09/07/23 06:00 Bronch Left Lower Lobe Acid Fast Bacilli Culture - Preliminary
09/06/23 15:39 Bronch Left Lower Lobe Respiratory Culture - Final
Serratia marcescens
Pseudomonas aeruginosa
09/06/23 15:39 Bronch Left Lower Lobe Gram Stain - Final
09/05/23 13:11 Tracheal Aspirate Respiratory Culture - Final
Serratia marcescens
Pseudomonas aeruginosa
09/05/23 13:11 Tracheal Aspirate Gram Stain - Final
08/31/23 14:39 Blood/Venous Blood Culture - Final
Lactobacillus casei
08/31/23 14:39 Blood/Venous Gram Stain - Final
08/31/23 14:39 Blood/Venous Blood Culture - Final
No Growth - Final Report
09/01/23 03:39 Nose MRSA Screen - Final
No Methicillin Resistant Staphylococcus aureus isolated.
08/31/23 14:39 Urine Urine Culture - Final
No Significant Growth
Echo 08/18/23: EF 60 to 65%. Mild concentric LVH. Normal diastolic function. Normal RV size and function. Mild TR. Pulmonary pressure 30 cm of mercury. Small pericardial effusion without hemodynamic compromise
EGD (during PEG placement) 09/14/23: Normal esophagus. Scar in the greater curvature of the stomach. Normal examined duodenum. An externally removable PEG placement was successfully completed. No specimens collected.
#Acute on chronic hypercapnic/hypoxemic respiratory failure:
-With acute respiratory acidosis on admission
-GENERAL ENGINEER the patient's tidal volume has decreased to an average of less than 200cc nightly (will be rectified with [employer]).
-Wean as tolerated during day time-7 hours yesterday
-VSE when patient can be on a trach collar
-s/p bronchoscopy 09/06/23
-ENT saw in consult and placed #6 Shiley (Long) on 09/06/2023 as there was concern for air leak
-Respiratory cultures with pseudomonas and Serratia (treated as aspiration PNA)
-Pt completed 5 days cefepime. Patient to start renally dosed Levofloxacin if relapses/develops fever.
-Repeat Bronchoscopy 09/11/23 was unremarkable (no secretions, masses, or mucous plugging)
#Acute metabolic encephalopathy on admission (and intermittent since):
-EEG, CT of the head all negative
-likely due to inadequate TV at home causing acute on chronic hypercapnic and hypoxemic respiratory failure with acute respiratory acidosis (on 30/07 at home as per family)
#Anemia of chronic disease and Fe deficiency: s/p 4 units of pRBCs
#One set of BCx with lactobacillus Casei: Likely contaminant
#Femoral line removed and Right IJ placed 09/07/23
#Hyperkalemia- Lokelma on hold, TF changed to Nepro, K better
#Hypomagnesemia, resolved
#Hypocalcemia- Normal Vit D level
#Positive LILIAN Screen: OP Rheum Eval
#CKD4, Cr at baseline. Sodium bicarb
#DM2: cont SSI/accuchecks/Lantus
#h/o small to moderate pericardial effusion
#Essential hypertension: cont Norvasc/doxazosin.
#Hyperlipidemia: Continue statin
#Coronary artery disease status post angioplasty: cont ASA/BB
#h/o C. diff.Negative this admit
#COVID pneumonia 2019 with ECMO and ventilator and 3-month hospital stay at [facility]
#Ambulatory dysfunction, wheelchair-bound since June 2019
#Spinal stenosis
#Overweight per BMI criteria
#Hypoalbuminemia
#Nutrition: s/p PEG 09/14/23. now 60cc/hr Nepro
FULL/Heparin
Has remained medically stable for d/c since 09/18/23. Case management aware.
Anticipated Discharge: Today
Subjective/Interval History
-
Date of Service: September 26, 2023
No new complaints.
Objective Data
-
Labs:
Laboratory Results
09/26/23
05:56
Sodium 139
Potassium 4.0
Chloride 101
Carbon Dioxide 32 H
BUN 53 H
Creatinine 1.7 H
Glucose 128 H
Calcium 9.3
Vital Signs:
Vital Signs
Temp Pulse Resp BP Pulse Ox
98.4 F 85 24 171/67 100
09/26/23 04:15 09/26/23 07:28 09/26/23 07:28 09/26/23 06:25 09/26/23 07:28
I&O
09/25/23 09/26/23 09/27/23
06:59 06:59 06:59
Intake Total 900 / 900
Output Total 775 / 775 950 / 950
Balance 125 / 125 -950 / -950
[2023-09-26] MEDS: FEOSOL 325 MG TUBE (08:20)
[2023-09-26] MEDS: NORVASC 10 MG TUBE (08:20)
[2023-09-26] MEDS: LOW STRENGTH ASPIRIN 81 MG TUBE (08:20)
[2023-09-26] MEDS: HEPARIN 5000 UNITS SC ×3 (08:20→23:10)
[2023-09-26] MEDS: LASIX 20 MG TUBE (08:20)
[2023-09-26] MEDS: VITAMIN B-12 1000 MCG TUBE (08:20)
[2023-09-26] MEDS: SODIUM BICARBONATE 650 MG TUBE ×2 (08:20→20:03)
[2023-09-26] MEDS: COREG 25 MG TUBE ×2 (08:21→20:03)
[2023-09-26] MEDS: VITAMIN D3 (cholecalciferol) 25 MCG TUBE (08:21)
[2023-09-26] MEDS: DESENEX/MITRAZOL/ZEASORB 1 APPLIC TOPICAL ×2 (08:21→20:03)
--- NOTE | 2023-09-26 08:30 | PTCARENOTE ---
Patient received from career guidance counselor. Patient resting comfortably in bed. AAOx2, still a little forgetful with place. VSS. No events noted overnight. No complaints of pain at this time. Currently on the ventilator A/C 16 450 +5 40%. Will attempt
to wean again as tolerated, has been tolerating well. Tube Feed Nepro @ 40mL/hr with 25mL H2O flush. Purewick in place, rectal trumpet came out over night and remains out. Call giles in reach.
--- NOTE | 2023-09-26 10:03 | W.PN.NEPH.PH ---
Today's Communication / Plan
-
follow BMP
Assessment/Plan
-
Assessment:
Hyperkalemia
CKD (Cr baseline 2.1-2.6)
NAGMA
acute on chronic hypercapnic/hypoxemic respiratory failure
Anemia of chronic disease
T2DM
moderate pericardial effusion
HTN
DLDC.diff
Amb dysfunction
h/o kidney stones with stent placement in the past
Hypoalbuminemia
Plan:
off lokelma
K better on Nepro
follow BMP
await LTAC
-
-
Date of Service: September 26, 2023
CC / HPI / ROS
-
Chief Complaint:
hyperkalemia
History of Present Illness:
K 4.0
Cr stable 1.7
BP stable
Review of Systems:
trach collar in place
TF 60/25 without issue
Incontinent
Weight stable
Labs
-
Labs:
WBC 5.6 10^3/uL (4.8-10.8) 09/24/23 05:41
RBC 3.04 10^6/uL (4.20-5.40) L 09/24/23 05:41
Hgb 8.7 g/dL (12.0-16.0) L 09/24/23 05:41
Hct 27.1 % (37.0-47.0) L 09/24/23 05:41
Plt Count 226 10^3/uL (130-400) 09/24/23 05:41
Sodium 139 mmol/L (135-145) 09/26/23 05:56
Potassium 4.0 mmol/L (3.5-5.1) 09/26/23 05:56
Chloride 101 mmol/L (98-107) 09/26/23 05:56
Carbon Dioxide 32 mmol/L (22-30) H 09/26/23 05:56
BUN 53 mg/dl (7-17) H 09/26/23 05:56
Creatinine 1.7 mg/dL (0.6-1.0) H 09/26/23 05:56
eGFR 33.28 09/26/23 05:56
Glucose 128 mg/dl (70-99) H 09/26/23 05:56
Calcium 9.3 mg/dl (8.4-10.2) 09/26/23 05:56
Phosphorus 5.3 mg/dl (2.5-4.5) H 09/17/23 04:41
Czg-I-Lnslolyanii Pept 64383 pg/ml 09/11/23 04:57
Albumin 2.5 g/dl (3.5-5.0) L 08/31/23 20:18
Physical Exam
-
Vital Signs:
Vital Signs
Temp Pulse Resp BP Pulse Ox
98.4 F 82 24 170/70 98
09/26/23 07:31 09/26/23 08:20 09/26/23 07:28 09/26/23 08:20 09/26/23 09:28
Cardiovascular:: Regular rate and rhythm
Respiratory:: Bilateral: Coarse
Lung Excursion:: Normal
Abdomen:: Nontender and Soft
Bowel Sounds:: Normal
Extremity Edema:: None: Bilateral:
[2023-09-26 12:15] LABS: Glucose - Point of Care 240 mg/dl (70-99)
--- NOTE | 2023-09-26 12:20 | CM ---
Patient with Hx trach collar daytime, trilogy/mechanical ventilation at night, ambulatory dysfunction, w/c bound with Dx Acute on chronic hypercapnic/hypoxemic respiratory failure, Acute metabolic encephalopathy. CPAP wean trials. Tube feeds.
Message from Dr Mckinley, Physician Advisor; Dr. Brock called and said as patient weaned for 7 hrs yesterday, so continue weaning here instead of at LTAC . He cited that patient has poor prognosis, and is hospice appropriate. He provided
appeal number for family to call: [phone].
Spoke with daughter Martina; she will do family appeal for LTAC. She will research [facility] and [facility] to see if she agrees with referrals to either of those facilities, as the backup plan.
Phone call to [facility] ([place] [phone]); left message requesting review of referral.
[facility] ([place] [phone]); left message requesing review of referral.
Plan follow up with daughter re; family appeal, and if daughter agrees to subacute SNFs.
[2023-09-26] MEDS: NOVOLOG FLEXPEN-LOW RESISTANCE 2 UNITS SC (12:25)
--- NOTE | 2023-09-26 12:41 | W.PN.PUL3 ---
Today's Communication / Plan
-
Check blood gas tomorrow AM to assure pH and pCO2 are stable
Continue daily CPAP wean, attempt to maintain for 12 hours
Rest on AC settings overnight
Target euvolemia, negative fluid status as able
Bronchoscopy as indicated
Disposition efforts
Assessment
-
Mrs Shruti Rockwell is a 62 year old F with history of chronic hypoxic/hypercarbic resp failure s/p trach, post COVID illness, who p/w CC shortness of breath. The patient was recently discharged from 08/25/23 for mucus plugging. Family states that on
day of admission, the patient had decreased responsiveness. She is placed on Trilogy at night/trach collar through the day. She has been sleeping more and less conversive. They have noticed her exhaled TV on Trilogy reporting on avg <200cc
nightly. Her baseline settings are TV 350/PS8/40%/5+. Per medics, the patient was initially on 15 L but desaturated to the 80s. She had to be bagged and her saturations did improve. She is placed on vent in ER and saturations are now improved.
CXR appears similar to prior. We are consulted for eval 09/01/23.
Hypoxemic and hypercapnic respiratory failure due to recurrent mucous plug/left lung atelectasis
Ventilator dependent respiratory failure
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
Status post emergent bronchoscopy at the bedside 08/18/2023-mucous plugs removed from the left
Pneumonia - SCx from 09/04 and BAL from 09/05 growing Serratia marcescens + Pseudomonas aeruginosa
Left pleural effusion
CHINTAN (Cr baseline 1.8) - CHINTAN now resolved
Anemia-normocytic
Hypocalcemia
Hypernatremia - resolved
Metabolic and respiratory acidosis
Conditions present prior to admission:
Chronic hypercapnic/hypoxemic respiratory failure/chronic tracheostomy/nocturnal ventilation.
Severe Covid/ECMO 2019.
Diabetes.
Hypertension.
CAD/angioplasty 2020.
Recurrent UTI.
Ambulatory dysfunction/wheelchair-bound.
Chronic anemia.
Overweight.
Renal calculi.
Laparoscopic cholecystectomy 07/2020. Bilateral ureteroscopy with lithotripsy of the right renal stone and clearing of left renal pelvic fungal ball. Laminectomy. .
Plan/recommendations
Patient is tolerating volume-cycled ventilation
She does have better aeration in the left hemithorax
Was able to tolerate about:
5 hours of pressure support today on settings PS 12, PEEP of 8 on 09/21
8 hours of pressure support today on settings PS 12, PEEP of 8 on 09/22
Previously she had not adequately weaned since 09/12
Presently appears to be comfortable
Oxygenation remained stable
Continues to have intermittent secretions. Rhonchi noted on exam
Suspect critical illness polyneuropathy
Negative fluid status noted
Chronic respiratory failure: Patient on trilogy ventilator at home. This admission settings where not optimal. Data from trilogy 08/16/23 showing usage 9.3 avg hours - MV 5.7 L/min - RR 23 - IPAP/EPAP 12.6/4.9 cm water - Avg VTe 249.1 - leak 32.5
L/min
Settings: Mode S, IPAP 13 EPAP 5
Continue with mechanical ventilation at nighttime with daily weaning trials
Try to wean daily as long as tolerated + maintain throughout the day if possible till 10 PM
Goal plateau pressure <30
Aspiration precautions
Routine tracheostomy tube care continues. #6 extra long tracheotomy noted
May require upsize of tracheotomy if airway pressures continue to be an issue, secretions continue to be an issue
Continue secretion clearance interventions: Persistent left lung atelectasis out despite maximal interventions.
CXR on AM of 09/05 shows persistent L-atelectasis --> improved on CXR from 09/22/2023
Dr Epstein performed bronchoscopy on 09/05 for pulmonary toilet purposes and BAL of LLL --> Cx grew Serratia marcescens + Pseudomonas aeruginosa
During bronch, there was a mucosal abnormality at her LLL at the secondary fran, which appeared white/shiny --> concern for dysplasia but cytology negative for malignancy.
Maximal secretion clearance interventions ongoing:
Sport bed
Continue VEST/cofflator with trach instillations with mucomyst and alb nebs q6h
DNs with prn doses for in between
Chest x-ray 09/11/2023: Reviewed, showed improved aeration on the left but persistent left sided atelectasis.
She may benefit from repeat bronchoscopy as clinically indicated
Occasionally repeat CXR
Bronchoscopy at the bedside Dr. Treviño 09/11/2023:, Tolerated well per no evidence for large airway secretions bilaterally. No endobronchial masses. Secondary fran left lower lobe patchy leukoplakia. Prior BAL cytopathology negative; this
region was never biopsied
Suspect chest x-ray is related to compressive atelectasis, possible some degree of pleural effusion/recovering pneumonia.
Tracheostomy has been exchanged:
Dr. Powell evaluated her on 09/05 --> #[id number] placed on 09/05 ([facility]); please make sure that extra tracheostomy is at bedside.
May require upsize if secretions and airway pressures continue to be an issue
Pneumonia: Resolved. Completed antibiotic therapy
Discontinued antibiotics on 09/03/2023: Afebrile. Cultures negative. Fever again on AM of 09/04 --> ABx restarted with cefepime; trach secs culture 09-04 + BAL 09-05 both growing Serratia marcescens + Pseudomonas aeruginosa.
Positive blood culture 08-30 suspect contaminant (Lactob casei)
ID has evaluated the patient, (completed 5 d cefepime 09-08 with levaquin on 09/09)-infectious disease has signed off.
Continue to monitor off antibiotics.
Swallowing dysfunction:
Recurrent microaspiration also has been contemplated in the past. She has been evaluated by speech therapy multiple times in the past. Diet has been modified.
Primary team ordered video barium swallow--> unfortunately patient is not safe to be placed back onto trach collar at this time.
Re-assess daily
DVT prophylaxis-heparin SQ
Early mobilization/bedside range of motion-baseline wheelchair-bound and ambulatory dysfunction
Nutritional support via PEG
DC planning to LTAC. Dr. Treviño updated her 09/13/2023 need for PEG tube and eventual placement.
Prognosis is very poor long-term. Depending on extent of family desire for aggressive care, hospice may be an option
Continue support as above
The patient was last seen in the pulmonary office by Kalpana Mobley NP 06/01/2023 and has an appointment 09/07/2023 at 10:30 AM --> this will be re-scheduled.
I called the daughter, Martina, and I answered all her questions
Reviewed with nursing and respiratory care
Disposition efforts
Total time spent today was 50 minutes for this encounter. Time includes reviewing laboratory test/imaging results, reviewing pertinent medical records, obtaining and reviewing medical history, performing an appropriate exam, ordering medications,
tests and procedures. Time also includes documentation of this encounter, coordinating patient care and communicating with other healthcare professionals. Total time does not include separately billed tests performed on this date of service.
Diagnostic Data:
Chest x-ray 08/17/2023-near complete opacification throughout the left Jovanni thorax
Chest 09-18-2023: Interval removal of enteric tube; No significant interval change compared to the prior x-ray with near complete opacification of left hemithorax secondary to atelectasis and pleural fluid. Diffusely increased interstitial opacities
within the right lung with small amount of likely loculated pleural fluid.
CXR 09-22-2023: Low lung volumes with diffusely increased interstitial markings bilaterally with nonspecific patchy opacities seen within the right midlung. Compared to the prior study, there is improved aeration of the left lung. Persistent/confluent
left basilar opacity which may represent a small amount of pleural fluid and/or airspace consolidation.
CXR 09-26-2023: Suggestion of slight improvement in aeration of the lateral aspect of the left lower lung; Small bilateral pleural effusions are probably present; Cardiomegaly with indistinctness of the central pulmonary vasculature, findings
suggestive of pulmonary edema.
Echocardiogram 01/10/22-EF 60-65%, no significant valvular disease, small pericardial effusion
Echocardiogram 03/22/22: Normal left ventricular chamber size. Normal left ventricular systolic�function. Normal regional wall motion. Normal left ventricular wall thickness.�Left ventricular ejection fraction is 60-65%. Mild tricuspid
regurgitation.�Small to moderate pericardial effusion without evidence of hemodynamic�compromise.�Compared to the previous echo Dec 2021, there is no significant change.
CT CHEST 04/11/22- �A moderate to large left pleural effusion and complete collapse/atelectasis of the left lung account for the left hemithorax opacification on the prior chest radiograph. Findings are in part likely secondary to mucous plugging
given the presence of opacification of the left mainstem bronchus and left upper and lower lobe bronchi, patchy opacifications right middle and lower lobe suspicious for pneumonia, moderate right pleural effusion and ill-defined sclerotic lesion
T12, osseous metastasis not completely excluded
CT CHEST 03/22/22 - There is no CT evidence for pulmonary embolism. No aortic dissection.There are extremely large bilateral pleural effusions right greater than left and associated bilateral consolidation most prominent in the left lower
lobe.Cardiomegaly. Increased pericardial effusion.
CT chest 08/17/2023-occluded left mainstem bronchus presumably mucous plugs with complete atelectasis left lung moderate size left pleural effusion, small to moderate right pleural effusion
VSE 04/28/22: No aspiration. Laryngeal penetration with cough with thin liquids by cup.
Spirometry 09/09/21-FEV1 790 mL-36%, FVC 790 mL 27%. Some difficulties with maneuver and thus may offer unreliability. Severe restriction.�������
PFT 02/08/22-FVC 1.01/30%, FEV1 0.70/35%, ratio 69%, unable to perform lung volumes and diffusing capacity.
Subjective Data
-
Date of Service:
Date of Service: September 26, 2023
Chief Complaint: Pulmonary Follow Up (Acute respiratory failure/mucous plugging.)
Subjective:
Seen today; on mechanical ventilator via trach on VC/AC at 16/450/40%/5. No events reported from overnight.
Review of Systems
General: Other (negative unless mentioned above)
Objective Data
Data Reviewed
Vital Signs / I&O / Oxygen:
Vital Signs
Temp Pulse Resp BP Pulse Ox
97.9 F 78 36 165/77 98
09/26/23 11:20 09/26/23 10:40 09/26/23 10:40 09/26/23 10:40 09/26/23 11:00
Intake and Output
09/25/23 09/26/23 09/27/23
06:59 06:59 06:59
Intake Total 900 / 900
Output Total 775 / 775 950 / 950
Balance 125 / 125 -950 / -950
SaO2 [CPAP/PSV] 96
SaO2 [A/C] 98
SaO2 95
Physical Exam
General: Respiratory Distress (negative) and Comfortable
HEENT: Normocephalic, Anicteric and Tracheotomy (#6 XLT)
Cardiovascular: S1-S2, Murmur (n), Rub (n) and Peripheral Edema (Trace edema)
Respiratory: Wheeze (Negative), Crackles (Few at base), Rhonchi (Few), Non-Labored Respirations and Other (Tracheostomy; mechanical breath sounds heard bilaterally)
GI: Soft, Non Distended, Non Tender, Normal Bowel Sounds and Feeding Tube (G-tube present)
Neurology: Awake, Alert, No Motor Deficits (Moves extremities, generally weak) and Other (Following commands)
Skin: Warm, Dry, Cyanosis (n) and Rash (n)
Labs/Micro/Reports
Lab Data
09/24/23 05:41
09/26/23 05:56
Microbiology
09/06/23 15:39 Bronch Left Lower Lobe Fungal Culture - Preliminary
Culture in progress.
Positive cultures are reported as soon as detected.
Final report to follow in four to five weeks.
[2023-09-26 18:16] LABS: Glucose - Point of Care 146 mg/dl (70-99)
[2023-09-26] MEDS: LIPITOR 20 MG TUBE (20:03)
[2023-09-26] MEDS: LANTUS 0.15 UNITS SC (23:09)
[2023-09-26 23:17] LABS: Glucose - Point of Care 168 mg/dl (70-99)
[2023-09-27] VITALS (19 sets, daily range): BP systolic 110–185; BP diastolic 54–102
[2023-09-27] MEDS: NOVOLOG FLEXPEN-LOW RESISTANCE 1 UNITS SC ×2 (00:27→23:50)
[2023-09-27] MEDS: APRESOLINE 10 MG IV ×3 (00:28→20:28)
[2023-09-27 00:36] LABS: Glucose - Point of Care 167 mg/dl (70-99)
[2023-09-27] MEDS: ROBITUSSIN 200 MG TUBE ×4 (01:34→20:26)
[2023-09-27 04:54] LABS: Venous Blood Gas HCO3 31.2 mmol/L (22-27); Venous Blood Gas pCO2 47 mmHg (35-48); Venous Blood Gas pH 7.43 (7.32-7.43); Venous Blood Gas pO2 227 mmHg (30-50)
[2023-09-27 04:59] LABS: Glucose - Point of Care 194 mg/dl (70-99)
[2023-09-27] MEDS: NOVOLOG FLEXPEN-LOW RESISTANCE 300 UNITS SC (05:04)
[2023-09-27 05:11] LABS: Blood Urea Nitrogen 52 mg/dl (7-17); Calcium 9.5 mg/dl (8.4-10.2); Carbon Dioxide 32 mmol/L (22-30); Chloride 100 mmol/L (98-107); Estimated Creatinine Clearance 28 ml/min; Glucose 173 mg/dl (70-99); Potassium 3.9 mmol/L (3.5-5.1); Sodium 138 mmol/L (135-145); eGFR 31.07
[2023-09-27] MEDS: DUONEB 3 ML INH ×2 (07:31→20:45)
[2023-09-27] MEDS: DESENEX/MITRAZOL/ZEASORB 1 APPLIC TOPICAL ×2 (08:22→20:26)
[2023-09-27] MEDS: LOW STRENGTH ASPIRIN 81 MG TUBE (08:24)
[2023-09-27] MEDS: HEPARIN 5000 UNITS SC ×3 (08:25→23:51)
[2023-09-27] MEDS: SODIUM BICARBONATE 650 MG TUBE ×2 (08:27→20:26)
[2023-09-27] MEDS: LASIX 20 MG TUBE (08:28)
[2023-09-27] MEDS: VITAMIN D3 (cholecalciferol) 25 MCG TUBE (08:28)
[2023-09-27] MEDS: COREG 25 MG TUBE ×2 (08:29→20:45)
[2023-09-27] MEDS: NORVASC 10 MG TUBE (08:29)
[2023-09-27] MEDS: VITAMIN B-12 1000 MCG TUBE (08:30)
[2023-09-27] MEDS: FEOSOL 325 MG TUBE (08:30)
--- NOTE | 2023-09-27 09:33 | CM ---
Patient with Hx trach collar daytime, trilogy/mechanical ventilation at night, ambulatory dysfunction, w/c bound with Dx Acute on chronic hypercapnic/hypoxemic respiratory failure, Acute metabolic encephalopathy. CPAP wean trials. Tube feeds.
Received call from [facility] (ph [phone]); they are able to accept the patient, however cannot admit over the weekend. She asked if the patient will have an ongoing need for transfusion, which they cannot do at their facility--->
message sent to Dr Yuan.
--
Spoke with daughter Martina; she is waiting to receive a HIPAA form from her mother's insurance, that they are requiring, in order to initiate the family appeal for LTAC - CM called her insurance and obtained copy of form. Martina will start
working on family appeal.
Martina looked at [facility] & [facility] [place] ratings online and has concerns about the quality of care at those facilities. Martina states that she spoke with the respiratory therapists here who told her to avoid going to [facility] as they did not like
the care at [facility] in [place], a facility that is now closed. Medicare [place] rating for [facility] of 4 out of 5 stars was provided to daughter. The 2/5 star rating was provided for [facility] [place].
Spoke with Dr Epstein; CPAP weaning happens everyday while here, as tolerated, with some days better than others. The goal of weaning the patient back to her baseline may take weeks or months, and may not be achieved. He will speak with the
daughter re; her questions about the weaning process.
Plan follow up with daughter re; family appeal and Subacute SNFs.
--- NOTE | 2023-09-27 09:53 | W.PN.NEPH.PH ---
Today's Communication / Plan
-
Add hydralazine 25 mg 3 times daily
Assessment/Plan
-
Assessment:
Hyperkalemia
CKD (Cr baseline 2.1-2.6)
NAGMA
acute on chronic hypercapnic/hypoxemic respiratory failure
Anemia of chronic disease
T2DM
moderate pericardial effusion
HTN
DLDC.diff
Amb dysfunction
h/o kidney stones with stent placement in the past
Hypoalbuminemia
Plan:
off lokelma
K better on Nepro
Remains on Lasix 20 mg daily
Will add hydralazine 25 mg 3 times daily for better blood pressure control
follow BMP
await LTAC
-
-
Date of Service: September 27, 2023
CC / HPI / ROS
-
Chief Complaint:
hyperkalemia
History of Present Illness:
K stable
Cr stable
BP remains elevated
Review of Systems:
trach collar in place
TF 60/25 without issue
Incontinent
Weight stable
Labs
-
Labs:
WBC 5.6 10^3/uL (4.8-10.8) 09/24/23 05:41
RBC 3.04 10^6/uL (4.20-5.40) L 09/24/23 05:41
Hgb 8.7 g/dL (12.0-16.0) L 09/24/23 05:41
Hct 27.1 % (37.0-47.0) L 09/24/23 05:41
Plt Count 226 10^3/uL (130-400) 09/24/23 05:41
Sodium 138 mmol/L (135-145) 09/27/23 04:43
Potassium 3.9 mmol/L (3.5-5.1) 09/27/23 04:43
Chloride 100 mmol/L (98-107) 09/27/23 04:43
Carbon Dioxide 32 mmol/L (22-30) H 09/27/23 04:43
BUN 52 mg/dl (7-17) H 09/27/23 04:43
Creatinine 1.8 mg/dL (0.6-1.0) H 09/27/23 04:43
eGFR 31.07 09/27/23 04:43
Glucose 173 mg/dl (70-99) H 09/27/23 04:43
Calcium 9.5 mg/dl (8.4-10.2) 09/27/23 04:43
Phosphorus 5.3 mg/dl (2.5-4.5) H 09/17/23 04:41
One-V-Jhmkjfyprcy Pept 00202 pg/ml 09/11/23 04:57
Albumin 2.5 g/dl (3.5-5.0) L 08/31/23 20:18
Physical Exam
-
Vital Signs:
Vital Signs
Temp Pulse Resp BP Pulse Ox
98.1 F 85 20 177/83 98
09/27/23 08:23 09/27/23 08:29 09/27/23 08:00 09/27/23 08:29 09/27/23 08:00
Cardiovascular:: Regular rate and rhythm
Respiratory:: Bilateral: Coarse
Lung Excursion:: Normal
Abdomen:: Nontender and Soft
Bowel Sounds:: Normal
Extremity Edema:: None: Bilateral:
--- NOTE | 2023-09-27 10:46 | W.PN.HOSP.TC ---
Today's Communication/Plan
-
see bold
Assessment / Plan
Assessment / Plan
62-year-old female with chronic tracheostomy uses ventilator at night and trach collar during the day. She was admitted recently and was discharged on 08/25/2023 but she was admitted with acute on chronic hypoxic hypercapnic respiratory failure with
opacification of the left hemithorax. Patient underwent bronchoscopy on 08/18/2023 mucous plugs removed from the left. BAL grew Proteus and completed 7-day course of Unasyn per ID. She also had CHINTAN with CKD stage IV FLAVIO inhibitor was held.
Ultrasound of the kidney showed bilateral renal disease. She comes back with decreased responsiveness.
Gen: appears mildly SOB, Awake and alert, appears chronically ill
Eyes: EOMI, PERRLA, no scleral icterus.
Neck: supple.
CV: RRR, +S1/S2, no m/r/g.
Resp: CTAB anteriorly, no rales, wheezes, or rhonchi.
Abd: +BS, soft, NT, ND
Skin: No rashes.
Neuro: remains CN 2-12 intact, non-focal.
Psych: normal mood and affect
09/18/23 12:58 Feces/Stool C. difficile GDH Antigen & Toxins - Final
Negative for toxigenic C.difficile
09/06/23 15:39 Bronch Left Lower Lobe Fungal Culture - Preliminary
Culture in progress.
Positive cultures are reported as soon as detected.
Final report to follow in four to five weeks.
09/05/23 09:11 Blood/Venous Blood Culture - Final
No Growth - Final Report
09/05/23 09:00 Blood/Venous Blood Culture - Final
No Growth - Final Report
09/07/23 06:00 Bronch Left Lower Lobe Acid Fast Bacilli Smear - Preliminary
09/07/23 06:00 Bronch Left Lower Lobe Acid Fast Bacilli Culture - Preliminary
09/06/23 15:39 Bronch Left Lower Lobe Respiratory Culture - Final
Serratia marcescens
Pseudomonas aeruginosa
09/06/23 15:39 Bronch Left Lower Lobe Gram Stain - Final
09/05/23 13:11 Tracheal Aspirate Respiratory Culture - Final
Serratia marcescens
Pseudomonas aeruginosa
09/05/23 13:11 Tracheal Aspirate Gram Stain - Final
08/31/23 14:39 Blood/Venous Blood Culture - Final
Lactobacillus casei
08/31/23 14:39 Blood/Venous Gram Stain - Final
08/31/23 14:39 Blood/Venous Blood Culture - Final
No Growth - Final Report
09/01/23 03:39 Nose MRSA Screen - Final
No Methicillin Resistant Staphylococcus aureus isolated.
08/31/23 14:39 Urine Urine Culture - Final
No Significant Growth
Echo 08/18/23: EF 60 to 65%. Mild concentric LVH. Normal diastolic function. Normal RV size and function. Mild TR. Pulmonary pressure 30 cm of mercury. Small pericardial effusion without hemodynamic compromise
EGD (during PEG placement) 09/14/23: Normal esophagus. Scar in the greater curvature of the stomach. Normal examined duodenum. An externally removable PEG placement was successfully completed. No specimens collected.
#Acute on chronic hypercapnic/hypoxemic respiratory failure:
-With acute respiratory acidosis on admission
-MACHINE FEEDER RAW STOCK the patient's tidal volume has decreased to an average of less than 200cc nightly (will be rectified with [employer]).
-Wean as tolerated during day time-7 hours yesterday
-VSE when patient can be on a trach collar
-s/p bronchoscopy 09/06/23
-ENT saw in consult and placed #6 Shiley ([facility]) on 09/06/2023 as there was concern for air leak
-Respiratory cultures with pseudomonas and Serratia (treated as aspiration PNA)
-Pt completed 5 days cefepime. Patient to start renally dosed Levofloxacin if relapses/develops fever.
-Repeat Bronchoscopy 09/11/23 was unremarkable (no secretions, masses, or mucous plugging)
#Acute metabolic encephalopathy on admission (and intermittent since):
-EEG, CT of the head all negative
-likely due to inadequate TV at home causing acute on chronic hypercapnic and hypoxemic respiratory failure with acute respiratory acidosis (on 30/07 at home as per family)
#Anemia of chronic disease and Fe deficiency: s/p 4 units of pRBCs
#One set of BCx with lactobacillus Casei: Likely contaminant
#Femoral line removed and Right IJ placed 09/07/23
#Hyperkalemia- Lokelma on hold, TF changed to Nepro, K better
#Hypomagnesemia, resolved
#Hypocalcemia- Normal Vit D level
#Positive LILIAN Screen: OP Rheum Eval
#CKD4, Cr at baseline. Sodium bicarb
#DM2: cont SSI/accuchecks/Lantus
#h/o small to moderate pericardial effusion
#Essential hypertension: cont Norvasc/doxazosin.
#Hyperlipidemia: Continue statin
#Coronary artery disease status post angioplasty: cont ASA/BB
#h/o C. diff.Negative this admit
#COVID pneumonia 2019 with ECMO and ventilator and 3-month hospital stay at [facility]
#Ambulatory dysfunction, wheelchair-bound since June 2019
#Spinal stenosis
#Overweight per BMI criteria
#Hypoalbuminemia
#Nutrition: s/p PEG 09/14/23. now 60cc/hr Nepro
FULL/Heparin
The pt has remained medically stable for d/c since 09/18/23. Case management aware.
Anticipated Discharge: Today
Subjective/Interval History
-
Date of Service: September 27, 2023
No new complaints.
Objective Data
-
Labs:
Laboratory Results
09/27/23 09/27/23
04:43 10:45
WBC Pending
Hgb Pending
Hct Pending
Plt Count Pending
Sodium 138
Potassium 3.9
Chloride 100
Carbon Dioxide 32 H
BUN 52 H
Creatinine 1.8 H
Glucose 173 H
Calcium 9.5
Vital Signs:
Vital Signs
Temp Pulse Resp BP Pulse Ox
98.1 F 85 20 177/83 98
09/27/23 08:23 09/27/23 08:29 09/27/23 08:00 09/27/23 08:29 09/27/23 08:00
I&O
09/26/23 09/27/23 09/28/23
06:59 06:59 06:59
Output Total 950 / 950 300 / 300
Balance -950 / -950 -300 / -300
[2023-09-27 11:05] LABS: Hematocrit 29.6 % (37.0-47.0); Hemoglobin 9.6 g/dL (12.0-16.0); Mean Corp Hgb Conc. 32.4 g/dL (33.0-37.0); Mean Corpuscular Volume 89.4 fL (81.0-99.0); Mean Platelet Volume 10.9 fL (7.4-10.4); Platelet Count 263 10^3/uL (130-400); Red Blood Cell Count 3.31 10^6/uL (4.20-5.40); Red Cell Dist. Width 15.6 % (11.5-14.5); White Blood Cell Count 8.9 10^3/uL (4.8-10.8)
[2023-09-27] MEDS: NOVOLOG FLEXPEN-LOW RESISTANCE 2 UNITS SC (11:36)
[2023-09-27 11:46] LABS: Glucose - Point of Care 225 mg/dl (70-99)
--- NOTE | 2023-09-27 14:27 | W.PN.PUL3 ---
Today's Communication / Plan
-
Weaning progress is slow, she has placement available at [facility] dispo to home on Trilogy
Daughter is working on appeal to LTAC, left to decision making
Discussed case with care team extensively
Assessment
-
Mrs Shruti Rockwell is a 62 year old F with history of chronic hypoxic/hypercarbic resp failure s/p trach, post COVID illness, who p/w CC shortness of breath. The patient was recently discharged from 08/25/23 for mucus plugging. Family states that on
day of admission, the patient had decreased responsiveness. She is placed on Trilogy at night/[facility] collar through the day. She has been sleeping more and less conversive. They have noticed her exhaled TV on Trilogy reporting on avg <200cc
nightly. Her baseline settings are TV 350/PS8/40%/5+. Per medics, the patient was initially on 15 L but desaturated to the 80s. She had to be bagged and her saturations did improve. She is placed on vent in ER and saturations are now improved.
CXR appears similar to prior. We are consulted for eval 09/01/23.
Hypoxemic and hypercapnic respiratory failure due to recurrent mucous plug/left lung atelectasis
Ventilator dependent respiratory failure
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
Status post emergent bronchoscopy at the bedside 08/18/2023-mucous plugs removed from the left
Pneumonia - SCx from 09/04 and BAL from 09/05 growing Serratia marcescens + Pseudomonas aeruginosa
Left pleural effusion
CHINTAN (Cr baseline 1.8) - CHINTAN now resolved
Anemia-normocytic
Hypocalcemia
Hypernatremia - resolved
Metabolic and respiratory acidosis
Conditions present prior to admission:
Chronic hypercapnic/hypoxemic respiratory failure/chronic tracheostomy/nocturnal ventilation.
Severe Covid/ECMO 2019.
Diabetes.
Hypertension.
CAD/angioplasty 2020.
Recurrent UTI.
Ambulatory dysfunction/wheelchair-bound.
Chronic anemia.
Overweight.
Renal calculi.
Laparoscopic cholecystectomy 07/2020. Bilateral ureteroscopy with lithotripsy of the right renal stone and clearing of left renal pelvic fungal ball. Laminectomy. .
Plan/recommendations
Patient is tolerating volume-cycled ventilation
Was able to tolerate about:
5 hours of pressure support today on settings PS 12, PEEP of 8 on 09/21
8 hours of pressure support today on settings PS 12, PEEP of 8 on 09/22
Previously she had not adequately weaned since 09/12
Oxygenation remained stable
Continues to have intermittent secretions. Rhonchi noted on exam
Suspect critical illness polyneuropathy
Chronic respiratory failure: Patient on trilogy ventilator at home. This admission settings where not optimal.
Data from trilogy 08/16/23 showing usage 9.3 avg hours - MV 5.7 L/min - RR 23 - IPAP/EPAP 12.6/4.9 cm water - Avg VTe 249.1 - leak 32.5 L/min
Settings: Mode S, IPAP 13 EPAP 5
This can be adjusted to AC mode, will discuss with DME for home use closer to time of discharge
Continue with mechanical ventilation at nighttime with daily weaning trials
Try to wean daily as long as tolerated + maintain throughout the day if possible till 10 PM
Goal plateau pressure <30
Aspiration precautions
Routine tracheostomy tube care continues. #6 extra long tracheotomy noted
Ongoing airway clearance measures
Continue secretion clearance interventions: Persistent left lung atelectasis out despite maximal interventions.
CXR on AM of 09/05 shows persistent L-atelectasis --> improved on CXR from 09/22/2023
Dr Epstein performed bronchoscopy on 09/05 for pulmonary toilet purposes and BAL of LLL --> Cx grew Serratia marcescens + Pseudomonas aeruginosa
During bronch, there was a mucosal abnormality at her LLL at the secondary fran, which appeared white/shiny --> concern for dysplasia but cytology negative for malignancy.
Bronchoscopy at the bedside Dr. Treviño 09/11/2023: Tolerated well per no evidence for large airway secretions bilaterally.
No endobronchial masses. Secondary fran left lower lobe patchy leukoplakia. Prior BAL cytopathology negative; this region was never biopsied
Suspect chest x-ray is related to compressive atelectasis, possible some degree of pleural effusion/recovering pneumonia.
Maximal secretion clearance interventions ongoing: Sport bed/VEST/cofflator/mucomyst and alb nebs q6h
DNs with prn doses for in between
Chest x-ray 09/11/2023: Reviewed, showed improved aeration on the left but persistent left sided atelectasis.
She may benefit from repeat bronchoscopy as clinically indicated
Occasionally repeat CXR
Tracheostomy has been exchanged:
Dr. Powell evaluated her on 09/05 --> #6XLT placed on 09/05 ([facility])
Tolerating well, maintaining adequate TV/pressures
Pneumonia: Resolved. Completed antibiotic therapy
Discontinued antibiotics on 09/03/2023: Afebrile. Cultures negative.
Fever again on AM of 09/04 --> ABx restarted with cefepime; trach secs culture 09-04 + BAL 09-05 both growing Serratia marcescens + Pseudomonas aeruginosa.
Positive blood culture 08-30 suspect contaminant (Lactob casei)
ID has evaluated the patient, (completed 5 d cefepime 09-08 with levaquin on 09/09)-infectious disease has signed off.
Continue to monitor off antibiotics.
Swallowing dysfunction:
Recurrent microaspiration also has been contemplated in the past. She has been evaluated by speech therapy multiple times in the past. Diet has been modified.
Primary team ordered video barium swallow--> unfortunately patient is not safe to be placed back onto [facility] collar at this time.
s/p PEG tube, continue TFs
DVT prophylaxis-heparin SQ
Early mobilization/bedside range of motion-baseline wheelchair-bound and ambulatory dysfunction
Nutritional support via PEG
DC planning to LTAC. This has been denied
Bed available at [facility], awaiting family decision making
Reviewed with nursing and respiratory care
Disposition efforts
Outpatient pulmonary FU recommended
Total time spent today was 60 minutes for this encounter. Time includes reviewing laboratory test/imaging results, reviewing pertinent medical records, obtaining and reviewing medical history, performing an appropriate exam, ordering medications,
tests and procedures. Time also includes documentation of this encounter, coordinating patient care and communicating with other healthcare professionals. Total time does not include separately billed tests performed on this date of service.
Diagnostic Data:
Chest x-ray 08/17/2023-near complete opacification throughout the left Jovanni thorax
Chest 09-18-2023: Interval removal of enteric tube; No significant interval change compared to the prior x-ray with near complete opacification of left hemithorax secondary to atelectasis and pleural fluid. Diffusely increased interstitial opacities
within the right lung with small amount of likely loculated pleural fluid.
CXR 09-22-2023: Low lung volumes with diffusely increased interstitial markings bilaterally with nonspecific patchy opacities seen within the right midlung. Compared to the prior study, there is improved aeration of the left lung. Persistent/confluent
left basilar opacity which may represent a small amount of pleural fluid and/or airspace consolidation.
CXR 09-26-2023: Suggestion of slight improvement in aeration of the lateral aspect of the left lower lung; Small bilateral pleural effusions are probably present; Cardiomegaly with indistinctness of the central pulmonary vasculature, findings
suggestive of pulmonary edema.
Echocardiogram 01/10/22-EF 60-65%, no significant valvular disease, small pericardial effusion
Echocardiogram 03/22/22: Normal left ventricular chamber size. Normal left ventricular systolic�function. Normal regional wall motion. Normal left ventricular wall thickness.�Left ventricular ejection fraction is 60-65%. Mild tricuspid
regurgitation.�Small to moderate pericardial effusion without evidence of hemodynamic�compromise.�Compared to the previous echo Dec 2021, there is no significant change.
CT CHEST 04/11/22- �A moderate to large left pleural effusion and complete collapse/atelectasis of the left lung account for the left hemithorax opacification on the prior chest radiograph. Findings are in part likely secondary to mucous plugging
given the presence of opacification of the left mainstem bronchus and left upper and lower lobe bronchi, patchy opacifications right middle and lower lobe suspicious for pneumonia, moderate right pleural effusion and ill-defined sclerotic lesion
T12, osseous metastasis not completely excluded
CT CHEST 03/22/22 - There is no CT evidence for pulmonary embolism. No aortic dissection.There are extremely large bilateral pleural effusions right greater than left and associated bilateral consolidation most prominent in the left lower
lobe.Cardiomegaly. Increased pericardial effusion.
CT chest 08/17/2023-occluded left mainstem bronchus presumably mucous plugs with complete atelectasis left lung moderate size left pleural effusion, small to moderate right pleural effusion
VSE 04/28/22: No aspiration. Laryngeal penetration with cough with thin liquids by cup.
Spirometry 09/09/21-FEV1 790 mL-36%, FVC 790 mL 27%. Some difficulties with maneuver and thus may offer unreliability. Severe restriction.�������
PFT 02/08/22-FVC 1.01/30%, FEV1 0.70/35%, ratio 69%, unable to perform lung volumes and diffusing capacity.
Subjective Data
-
Date of Service:
Date of Service: September 27, 2023
Chief Complaint: Pulmonary Follow Up (Acute respiratory failure/mucous plugging.)
Subjective:
patient seen today, remains on vent
clinically unchanged
Objective Data
Data Reviewed
Vital Signs / I&O / Oxygen:
Vital Signs
Temp Pulse Resp BP Pulse Ox
97.6 F 56 16 110/54 98
09/27/23 11:30 09/27/23 12:00 09/27/23 12:00 09/27/23 12:00 09/27/23 12:00
Intake and Output
09/26/23 09/27/23 09/28/23
06:59 06:59 06:59
Output Total 950 / 950 300 / 300
Balance -950 / -950 -300 / -300
SaO2 [CPAP/PSV] 98
SaO2 [A/C] 98
SaO2 99
Physical Exam
General: Respiratory Distress (negative) and Comfortable
HEENT: Normocephalic, Anicteric and Tracheotomy (#6 XLT)
Cardiovascular: S1-S2, Murmur (n), Rub (n) and Peripheral Edema (Trace edema)
Respiratory: Wheeze (Negative), Crackles (Few at base), Rhonchi (Few), Non-Labored Respirations and Other (Tracheostomy; mechanical breath sounds heard bilaterally)
GI: Soft, Non Distended, Non Tender, Normal Bowel Sounds and Feeding Tube (G-tube present)
Neurology: Awake, Alert, No Motor Deficits (Moves extremities, generally weak) and Other (Following commands)
Skin: Warm, Dry, Cyanosis (n) and Rash (n)
Labs/Micro/Reports
Lab Data
09/27/23 10:57
09/27/23 04:43
Microbiology
09/06/23 15:39 Bronch Left Lower Lobe Fungal Culture - Preliminary
Culture in progress.
Positive cultures are reported as soon as detected.
Final report to follow in four to five weeks.
[2023-09-27] MEDS: APRESOLINE 25 MG PO ×2 (15:17→22:35)
--- NOTE | 2023-09-27 17:06 | PTCARENOTE ---
Patient remains comfortable in bed. CPAP initiated this am by RT. Patient tolerated weaning for approx 80min. Patient placed back on ventilator A/C 16 450 +5 40%, increased RR and O2 sats mid 80's. Required suction throughout shift, thick white
mucous. Rectal trumpet reinserted after large liquid stool. Patient cleaned and new purewick placed with an output of clear yellow urine. Pt blood pressure remains high, 160-170s/50-80s. Received order for hydralazine 25 mg PO TID, first dose
given this afternoon. Tube Feed Nepro @ 40mL/hr with 25mL H2O flush. Call giles in reach.
[2023-09-27] MEDS: NOVOLOG FLEXPEN-LOW RESISTANCE SC (17:34)
[2023-09-27 17:42] LABS: Glucose - Point of Care 149 mg/dl (70-99)
[2023-09-27] MEDS: LIPITOR 20 MG TUBE (20:26)
[2023-09-27] MEDS: LANTUS 0.15 UNITS SC (22:35)
[2023-09-27 22:47] LABS: Glucose - Point of Care 170 mg/dl (70-99)
[2023-09-28] VITALS (11 sets, daily range): BP systolic 118–176; BP diastolic 55–87; BMI 26.2
[2023-09-28 00:01] LABS: Glucose - Point of Care 176 mg/dl (70-99)
[2023-09-28] MEDS: ROBITUSSIN 200 MG TUBE ×3 (02:58→13:10)
[2023-09-28] MEDS: APRESOLINE 10 MG IV ×2 (02:58→18:24)
--- NOTE | 2023-09-28 04:21 | PTCARENOTE ---
Pt requiring suction through out the night. Pt able to communicate more. Pt moving more, removing own blanket and moving around tubes. Pt BP's remaining high at times, PRN medications given. Assessment care and vitals as charted.
[2023-09-28] MEDS: NOVOLOG FLEXPEN-LOW RESISTANCE 2 UNITS SC (05:22)
[2023-09-28 05:32] LABS: Glucose - Point of Care 219 mg/dl (70-99)
[2023-09-28] MEDS: DUONEB 3 ML INH ×2 (07:48→20:06)
--- NOTE | 2023-09-28 07:55 | W.PN.HOSP.TC ---
Addendum entered and electronically signed by Duane Yuan MD 09/28/23 13:38:
Total time spent on d/c = 37 min. This included today's physical exam, progress note, review of laboratory and diagnostic data, preparation of discharge documents and prescriptions, and discussions about the pt's hospital course and discharge plan
with the patient and other certified medical coding specialist involved in the patient's care.
Original Note:
Today's Communication/Plan
-
see bold
Assessment / Plan
Assessment / Plan
62-year-old female with chronic tracheostomy uses ventilator at night and trach collar during the day. She was admitted recently and was discharged on 08/25/2023 but she was admitted with acute on chronic hypoxic hypercapnic respiratory failure with
opacification of the left hemithorax. Patient underwent bronchoscopy on 08/18/2023 mucous plugs removed from the left. BAL grew Proteus and completed 7-day course of Unasyn per ID. She also had CHINTAN with CKD stage IV FLAVIO inhibitor was held.
Ultrasound of the kidney showed bilateral renal disease. She comes back with decreased responsiveness.
Gen: NAD, Awake and alert, appears chronically ill
Eyes: EOMI, PERRLA, no scleral icterus.
Neck: supple.
CV: remains RRR, +S1/S2, no m/r/g.
Resp: CTAB anteriorly, no rales, wheezes, or rhonchi.
Abd: +BS, soft, NT, ND
Skin: No rashes.
Neuro: continues to remain CN 2-12 intact, non-focal.
Psych: normal mood and affect
09/18/23 12:58 Feces/Stool C. difficile GDH Antigen & Toxins - Final
Negative for toxigenic C.difficile
09/06/23 15:39 Bronch Left Lower Lobe Fungal Culture - Preliminary
Culture in progress.
Positive cultures are reported as soon as detected.
Final report to follow in four to five weeks.
09/05/23 09:11 Blood/Venous Blood Culture - Final
No Growth - Final Report
09/05/23 09:00 Blood/Venous Blood Culture - Final
No Growth - Final Report
09/07/23 06:00 Bronch Left Lower Lobe Acid Fast Bacilli Smear - Preliminary
09/07/23 06:00 Bronch Left Lower Lobe Acid Fast Bacilli Culture - Preliminary
09/06/23 15:39 Bronch Left Lower Lobe Respiratory Culture - Final
Serratia marcescens
Pseudomonas aeruginosa
09/06/23 15:39 Bronch Left Lower Lobe Gram Stain - Final
09/05/23 13:11 Tracheal Aspirate Respiratory Culture - Final
Serratia marcescens
Pseudomonas aeruginosa
09/05/23 13:11 Tracheal Aspirate Gram Stain - Final
08/31/23 14:39 Blood/Venous Blood Culture - Final
Lactobacillus casei
08/31/23 14:39 Blood/Venous Gram Stain - Final
08/31/23 14:39 Blood/Venous Blood Culture - Final
No Growth - Final Report
09/01/23 03:39 Nose MRSA Screen - Final
No Methicillin Resistant Staphylococcus aureus isolated.
08/31/23 14:39 Urine Urine Culture - Final
No Significant Growth
Echo 08/18/23: EF 60 to 65%. Mild concentric LVH. Normal diastolic function. Normal RV size and function. Mild TR. Pulmonary pressure 30 cm of mercury. Small pericardial effusion without hemodynamic compromise
EGD (during PEG placement) 09/14/23: Normal esophagus. Scar in the greater curvature of the stomach. Normal examined duodenum. An externally removable PEG placement was successfully completed. No specimens collected.
Acute on chronic hypercapnic/hypoxemic respiratory failure:
-With acute respiratory acidosis on admission
-AREA RELIEF PILOT the patient's tidal volume has decreased to an average of less than 200cc nightly.
-s/p bronchoscopy 09/06/23
-ENT saw in consult and placed #6 Shiley (Long) on 09/06/2023 as there was concern for air leak
-Respiratory cultures with pseudomonas and Serratia (treated as aspiration PNA)
-Pt completed 5 days cefepime. Patient to start renally dosed Levofloxacin if relapses/develops fever.
-Repeat Bronchoscopy 09/11/23 was unremarkable (no secretions, masses, or mucous plugging)
-Vent dependent, pt is a poor candidate to wean further. As per discussion with Dr. Alvares pt can be on Trilogy.
Acute metabolic encephalopathy on admission (and intermittent during admission):
-EEG, CT of the head all negative
-likely due to inadequate TV at home causing acute on chronic hypercapnic and hypoxemic respiratory failure with acute respiratory acidosis (on 30/07 at home as per family)
#Anemia of chronic disease and Fe deficiency: s/p 4 units of pRBCs
#One set of BCx with lactobacillus Casei: Likely contaminant
#Femoral line removed and Right IJ placed 09/07/23
#Hyperkalemia:resolved with Lokelma and changing TFs changed to Nepro
#Hypomagnesemia, resolved
#Hypocalcemia- Normal Vit D level
#Positive LILIAN Screen: OP Rheum Eval
#CKD4, Cr at baseline. Sodium bicarb
#DM2: cont SSI/accuchecks/Lantus
#h/o small to moderate pericardial effusion
#Essential hypertension: cont Norvasc/doxazosin.
#Hyperlipidemia: Continue statin
#Coronary artery disease status post angioplasty: cont ASA/BB
#h/o C. diff.Negative this admit
#COVID pneumonia 2019 with ECMO and ventilator and 3-month hospital stay at [facility]
#Ambulatory dysfunction, wheelchair-bound since June 2019
#Spinal stenosis
#Overweight per BMI criteria
#Hypoalbuminemia
#Nutrition: s/p PEG 09/14/23. Cont Nepro TFs.
FULL/Heparin
The pt has remained medically stable for d/c since 09/18/23. Case management aware.
Anticipated Discharge: Today
Subjective/Interval History
-
Date of Service: September 28, 2023
No new complaints.
Objective Data
-
Vital Signs:
Vital Signs
Temp Pulse Resp BP Pulse Ox
98.2 F 73 23 164/67 98
09/28/23 03:17 09/28/23 06:00 09/28/23 06:00 09/28/23 06:00 09/28/23 06:00
I&O
09/27/23 09/28/23 09/29/23
06:59 06:59 06:59
Intake Total 840 / 840
Output Total 300 / 300 250 / 250
Balance -300 / -300 590 / 590
[2023-09-28] MEDS: APRESOLINE 25 MG TUBE (08:43)
[2023-09-28] MEDS: SODIUM BICARBONATE 650 MG TUBE (08:44)
[2023-09-28] MEDS: HEPARIN 5000 UNITS SC ×2 (08:44→16:28)
[2023-09-28] MEDS: COREG 25 MG TUBE (08:44)
[2023-09-28] MEDS: VITAMIN B-12 1000 MCG TUBE (08:44)
[2023-09-28] MEDS: DESENEX/MITRAZOL/ZEASORB 1 APPLIC TOPICAL (08:44)
[2023-09-28] MEDS: LASIX 20 MG TUBE (08:44)
[2023-09-28] MEDS: VITAMIN D3 (cholecalciferol) 25 MCG TUBE (08:44)
[2023-09-28] MEDS: LOW STRENGTH ASPIRIN 81 MG TUBE (08:44)
[2023-09-28] MEDS: FEOSOL 325 MG TUBE (08:44)
[2023-09-28] MEDS: NORVASC 10 MG TUBE (08:44)
--- NOTE | 2023-09-28 09:23 | W.PN.NEPH.PH ---
Today's Communication / Plan
-
Increase hydralazine to 50 mg 3 times daily
Follow-up BMP in a
Assessment/Plan
-
Assessment:
Hyperkalemia
CKD (Cr baseline 2.1-2.6)
NAGMA
acute on chronic hypercapnic/hypoxemic respiratory failure
Anemia of chronic disease
T2DM
moderate pericardial effusion
HTN
DLDC.diff
Amb dysfunction
h/o kidney stones with stent placement in the past
Hypoalbuminemia
Plan:
off lokelma
K better on Nepro
Remains on Lasix 20 mg daily
Will increase hydralazine to 50 mg 3 times daily for better blood pressure control
follow BMP
await LTAC
-
-
Date of Service: September 28, 2023
CC / HPI / ROS
-
Chief Complaint:
hyperkalemia
History of Present Illness:
K stable
Cr stable
BP remains elevated
Review of Systems:
trach collar in place
TF 60/25 without issue
Incontinent
Weight stable
Labs
-
Labs:
WBC 8.9 10^3/uL (4.8-10.8) 09/27/23 10:57
RBC 3.31 10^6/uL (4.20-5.40) L 09/27/23 10:57
Hgb 9.6 g/dL (12.0-16.0) L 09/27/23 10:57
Hct 29.6 % (37.0-47.0) L 09/27/23 10:57
Plt Count 263 10^3/uL (130-400) 09/27/23 10:57
Sodium 138 mmol/L (135-145) 09/27/23 04:43
Potassium 3.9 mmol/L (3.5-5.1) 09/27/23 04:43
Chloride 100 mmol/L (98-107) 09/27/23 04:43
Carbon Dioxide 32 mmol/L (22-30) H 09/27/23 04:43
BUN 52 mg/dl (7-17) H 09/27/23 04:43
Creatinine 1.8 mg/dL (0.6-1.0) H 09/27/23 04:43
eGFR 31.07 09/27/23 04:43
Glucose 173 mg/dl (70-99) H 09/27/23 04:43
Calcium 9.5 mg/dl (8.4-10.2) 09/27/23 04:43
Phosphorus 5.3 mg/dl (2.5-4.5) H 09/17/23 04:41
Eqi-Y-Ooukpytfwsl Pept 65318 pg/ml 09/11/23 04:57
Albumin 2.5 g/dl (3.5-5.0) L 08/31/23 20:18
Physical Exam
-
Vital Signs:
Vital Signs
Temp Pulse Resp BP Pulse Ox
98.2 F 75 18 176/65 100
09/28/23 03:17 09/28/23 08:43 09/28/23 08:02 09/28/23 08:43 09/28/23 08:02
Cardiovascular:: Regular rate and rhythm
Respiratory:: Bilateral: Coarse
Lung Excursion:: Normal
Abdomen:: Nontender and Soft
Bowel Sounds:: Normal
Extremity Edema:: None: Bilateral:
Bond Catheter: No
--- NOTE | 2023-09-28 10:22 | PTCARENOTE ---
Assumed care of pt from night RN, pt AAO, able to mouth words, denies pain. Pt did not tolerate CPAP settings this AM, SPO2 dropped into 70s, pt back on A/C and SPO2 came back up to 97%. Repositioned in bed frequently. Daughter at bedside. Rectal
tube in place, as well as purewick. Purewick draining dark yellow urine. Will continue to monitor through shift.
[2023-09-28 12:58] LABS: Glucose - Point of Care 172 mg/dl (70-99)
[2023-09-28] MEDS: NOVOLOG FLEXPEN-LOW RESISTANCE 1 UNITS SC (13:10)
--- NOTE | 2023-09-28 13:39 | W.DCSUMMARY ---
Discharge Summary
Discharge Data
Date of Admission: 08/31/23
Date of Discharge: 09/28/23
-
Pending Results: No
Hospital Course
Primary diagnoses:
Acute on chronic hypoxemic and hypercapnic respiratory failure
Aspiration pneumonia
Acute metabolic encephalopathy
PEG tube placement
Secondary diagnoses:
Anemia of chronic disease and Fe deficiency: s/p 4 units of pRBCs
Hyperkalemia
Hypomagnesemia
Hypocalcemia
Positive LILIAN Screen
Chronic kidney disease stage IV
Type 2 diabetes mellitus
Essential hypertension
Hyperlipidemia
Coronary artery disease status post angioplasty
h/o C. difficile
COVID pneumonia 2019 with ECMO and ventilator and 3-month hospital stay at [place]
Ambulatory dysfunction, wheelchair-bound since June 2019
Spinal stenosis
Overweight per BMI criteria
Hypoalbuminemia
Consultants:
Nephrology
Gastroenterology
Pulmonary
Infectious disease
Neurology
ENT
Imaging:
CXR 08/31/23:
1). Mild parenchymal airspace disease at the right lung base may be atelectasis or interstitial pneumonia
2). Confluent pleural parenchymal airspace disease and retrocardiac left lung base is consistent with left-sided pleural effusion with underlying left lower lobe atelectasis
CT brain 09/04/23:
1. No acute intracranial abnormality. Atrophic changes as seen prior, most pronounced along anterior bilateral temporal lobes.
2. Mild acute on chronic paranasal sinusitis.
Renal U/S 09/14/23: Bladder wall appears mildly diffusely thickened. Ureteral jets are not visualized. Bilateral pleural effusions are noted. No evidence for pelvicalyceal dilation, mass, or calculus involving either kidney.
EGD (during PEG placement) 09/14/23: Normal esophagus. Scar in the greater curvature of the stomach. Normal examined duodenum. An externally removable PEG placement was successfully completed. No specimens collected.
Hospital course: 62-year-old female who presented with a chief complaint of decreased responsiveness as outlined in the H&P done on admission. Hospital course per problem list
Acute on chronic hypercapnic/hypoxemic respiratory failure: Patient had acute respiratory acidosis on admission. The reason for the patient's acute on chronic hypoxemic and hypercapnic respiratory failure appears to have been due to the patient's
tidal volumes being decreased inadvertently to an average of less than 200cc nightly. Patient underwent bronchoscopy on 09/06/23 at which time within secretions of the bilateral tracheobronchial tree were suctioned. Right bronchial tree had no
obvious abnormalities. The left tracheobronchial tree showed significant atelectasis in the left lower lobe with a mucosal abnormality seen at the left lower lobe secondary fran. Left upper lobe also appeared atelectatic mainly affecting the
lingula. BAL was performed and cultures grew Serratia marcescens and Pseudomonas aeruginosa. Patient was treated as aspiration pneumonia with 5 days of cefepime at the direction of infectious disease. ENT saw in consult and placed #6 Shiley (Long)
on 09/06/2023 as there was concern for air leak. Repeat Bronchoscopy 09/11/23 was unremarkable (no secretions, masses, or mucous plugging). Patient was followed by pulmonary while hospitalized. At the time of discharge it was recommended the
patient remain on assist-control 450/16/5/40%. Weaning trials can be attempted at LTAC but, as per my discussion with pulmonary, it is likely the patient will ever wean from the ventilator.
Acute metabolic encephalopathy on admission (and intermittent during admission): Patient was seen by neurology. EEG and CT scan of the brain were unremarkable. Overall her encephalopathy improved.
The patient was medically cleared for discharge on September 18, 2023. She was ultimately discharged September 28, 2023 as disposition efforts were difficult. Overall the patient's prognosis is extremely poor.
Discharge Plan
-
Patient Disposition: Acute Rehab Facility
Discharge Diagnosis/Procedures: Acute on chronic hypercapnic and hypoxic respiratory failure, anemia, metabolic encephalopathy, pneumonia, hyperkalemia, CKD stage IV, diabetes, hypertension, hyperlipidemia, coronary artery disease, ambulatory
dysfunction
Diet: Tube feeding
Additional Diets: Nepro 40 ml/hr with 25 ml/hr of free water flushes
Driving Restrictions: No driving
Blood Work: CBC and BMP in 1 week, script from PCP
Other Services: PT and OT
Activity Restrictions/Additional Instructions:
Wound Care Instructions
Sacral/buttocks, L ischium-clean with saline or Vashe wound cleanser (stocked in SPD), miconazole powder followed by no sting barrier wipe to lupe wound red skin, silicone border foam, change daily and prn loosened dressing (add alginate prn large
amount of drainage).
Lupe MASD-clean gently with lupe wipes or soap and water, miconazole powder and zinc barrier ointment (i.e. Calazime) bid and prn incontinence.
Air mattress.
Elevate heels off bed with pillow/s.
Pressure redistributing chair cushion (i.e. Roho).
Follow up with wound direct care supervisor or at wound care center call for an appointment.
Follow-up with rheumatology for positive LILIAN workup
Ventilator settings: A/C 450/16/5/40%
Referrals:
Arnulfo Del Valle CRNP [Family Provider] - in less than 1 week
Kalpana Mobley CRNP [Non-Admitting Privileges] - in two to three weeks
yAdin Palomino MD [Active] -
Prescriptions:
New
ipratropium-albuterol 0.5 mg-3 mg(2.5 mg base)/3 mL Solution For Nebulization
3 ml inhalation R BID Qty: 0 0RF
albuterol sulfate 2.5 mg /3 mL (0.083 %) Solution For Nebulization
2.5 mg inhalation R Q4HPRN PRN (Reason: SOB) Qty: 0 0RF
guaifenesin [Siltussin SA] 100 mg/5 mL Liquid
200 mg feeding tube Q6H Qty: 0 0RF
ferrous sulfate [FeroSul] 325 mg (65 mg iron) Tablet
325 mg feeding tube DAILY Qty: 0 0RF
aspirin 81 mg Tablet,Chewable
81 mg feeding tube DAILY Qty: 0 0RF
furosemide 20 mg Tablet
20 mg feeding tube DAILY Qty: 0 0RF
lansoprazole 30 mg Tablet,Disintegrat, Delay Rel
30 mg feeding tube DAILY Qty: 0 0RF
Polysporin 500-10,000 unit/gram Ointment In Packet
1 applic topical DAILY Qty: 0 0RF
carvedilol 25 mg Tablet
25 mg feeding tube BID Qty: 0 0RF
hydralazine 25 mg Tablet
50 mg feeding tube TID Qty: 0 0RF
Continued
acetaminophen [Tylenol Extra Strength] 500 MG tablet
1,000 mg PO Q6HPRN PRN (Reason: mild pain/ temp>100.5 F) 0RF
insulin lispro [Humalog KwikPen Insulin] 100 UNIT/ML insulin pen
0 sliding scale dose SC ACHS
ipratropium-albuterol 0.5 mg-3 mg(2.5 mg base)/3 mL solution for nebulization
3 ml inhalation R TID
sodium bicarbonate 650 mg tablet
650 mg feeding tube BID Qty: 0 0RF
Changed
atorvastatin 20 MG tablet
20 mg feeding tube QPM Qty: 30 0RF
cyanocobalamin (vitamin B-12) 1,000 mcg Tablet
1,000 mcg feeding tube DAILY Qty: 0 0RF
amlodipine [Norvasc] 10 mg tablet
10 mg feeding tube DAILY Qty: 0 0RF
loratadine [Allergy Relief (loratadine)] 10 mg Tablet
10 mg feeding tube DAILY PRN (Reason: allergy symptoms) Qty: 0 0RF
Levemir FlexPen 100 unit/mL (3 mL) insulin pen
15 unit SC HS Qty: 0 0RF
cholecalciferol (vitamin D3) 25 mcg (1,000 unit) Tablet
25 mcg feeding tube DAILY Qty: 0 0RF
Discontinued
metformin 500 mg Tablet Extended Release 24 Hr
1,000 mg PO BID@0800,1700
Hold Instructions: Until creatinine improves
Rx Instructions:
on hold
ferrous gluconate 324 mg (37.5 mg iron) Tablet
324 mg PO BID
metoprolol tartrate 25 MG tablet
50 mg PO BID
doxazosin 1 MG tablet
1 mg PO HS Qty: 30 0RF
Mounjaro 7.5 mg/0.5 mL pen injector
7.5 mg SC TANG
pantoprazole 40 mg tablet,delayed release (DR/EC)
40 mg PO DAILYPRN PRN (Reason: gi issues)
aspirin 81 mg tablet,delayed release (DR/EC)
81 mg PO DAILY
guaifenesin 600 mg tablet extended release 12hr
600 mg PO Q12
Discharge Orders:
Discharge Patient (As Directed); Ordered 09/28/23
Ordered By: Duane Yuan
Discharge Date and Time
Print Language: CITIZEN [place]
--- NOTE | 2023-09-28 13:40 | W.PN.PUL3 ---
Today's Communication / Plan
-
Weaning progress is slow, she has placement available at [facility] vs dispo to home on Trilogy
Daughter is working on appeal to LTAC, left to decision making
Patient is being discharged today to [facility]
Continue daily weaning trial otherwise with mechanical ventilation [id number]
Discussed case with care team extensively
Pulmonary service will now sign off as patient is being prepared for discharge tonight. We will arrange for outpatient follow-up. Please reconsult if there are any additional questions/concerns, or if patient's respiratory status deteriorates.
Assessment
-
Mrs Shruti Rockwell is a 62 year old F with history of chronic hypoxic/hypercarbic resp failure s/p trach, post COVID illness, who p/w CC shortness of breath. The patient was recently discharged from 08/25/23 for mucus plugging. Family states that on
day of admission, the patient had decreased responsiveness. She is placed on Trilogy at night/trach collar through the day. She has been sleeping more and less conversive. They have noticed her exhaled TV on Trilogy reporting on avg <200cc
nightly. Her baseline settings are TV 350/PS8/40%/5+. Per medics, the patient was initially on 15 L but desaturated to the 80s. She had to be bagged and her saturations did improve. She is placed on vent in ER and saturations are now improved.
CXR appears similar to prior. We are consulted for eval 09/01/23.
Impression:
Hypoxemic and hypercapnic respiratory failure due to recurrent mucous plug/left lung atelectasis
Ventilator dependent respiratory failure
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
Status post emergent bronchoscopy at the bedside 08/18/2023-mucous plugs removed from the left
Pneumonia - SCx from 09/04 and BAL from 09/05 growing Serratia marcescens + Pseudomonas aeruginosa
Left pleural effusion
CHINTAN (Cr baseline 1.8) - CHINTAN now resolved
Anemia-normocytic
Hypocalcemia
Hypernatremia - resolved
Metabolic and respiratory acidosis
Conditions present prior to admission:
Chronic hypercapnic/hypoxemic respiratory failure/chronic tracheostomy/nocturnal ventilation.
Severe Covid/ECMO 2019.
Diabetes.
Hypertension.
CAD/angioplasty 2020.
Recurrent UTI.
Ambulatory dysfunction/wheelchair-bound.
Chronic anemia.
Overweight.
Renal calculi.
Laparoscopic cholecystectomy 07/2020. Bilateral ureteroscopy with lithotripsy of the right renal stone and clearing of left renal pelvic fungal ball. Laminectomy. .
Plan/recommendations
Patient is tolerating volume-cycled ventilation
Was able to tolerate about:
5 hours of pressure support today on settings PS 12, PEEP of 8 on 09/21
8 hours of pressure support today on settings PS 12, PEEP of 8 on 09/22
Previously she had not adequately weaned since 09/12
Oxygenation remained stable
Continues to have intermittent secretions. High peak pressures with normal mean airway pressure as well as near normal plateau pressure. Perhaps this is due to the fact that her XLT trach is very close to her trachea
Suspect critical illness polyneuropathy
Chronic respiratory failure: Patient on trilogy ventilator at home. This admission settings were not optimal.
Data from trilogy 08/16/23 showing usage 9.3 avg hours - MV 5.7 L/min - RR 23 - IPAP/EPAP 12.6/4.9 cm water - Avg VTe 249.1 - leak 32.5 L/min
Settings: Mode S, IPAP 13 EPAP 5
This can be adjusted to AC mode, will discuss with DME for home use closer to time of discharge
Continue with mechanical ventilation at nighttime with daily weaning trials
Try to wean daily as long as tolerated + maintain throughout the day if possible till 10 PM
Goal plateau pressure <30-35 with Mean airway pressure <20; if peak pressures >40-45 then suction and give DuoNebs treatment; if peaks >50 then check stat CXR
Aspiration precautions
Routine tracheostomy tube care continues. #6 extra long tracheotomy noted
Ongoing airway clearance measures
Continue secretion clearance interventions: Persistent left lung atelectasis out despite maximal interventions.
CXR on AM of 09/05 shows persistent L-atelectasis --> improved on CXR from 09/22/2023
Dr Epstein performed bronchoscopy on 09/05 for pulmonary toilet purposes and BAL of LLL --> Cx grew Serratia marcescens + Pseudomonas aeruginosa
During bronch, there was a mucosal abnormality at her LLL at the secondary fran, which appeared white/shiny --> concern for dysplasia but cytology negative for malignancy.
Bronchoscopy at the bedside Dr. Treviño 09/11/2023: Tolerated well per no evidence for large airway secretions bilaterally.
No endobronchial masses. Secondary fran left lower lobe patchy leukoplakia. Prior BAL cytopathology negative; this region was never biopsied
Suspect chest x-ray is related to compressive atelectasis, possible some degree of pleural effusion/recovering pneumonia.
Maximal secretion clearance interventions ongoing: Sport bed/VEST/cofflator/mucomyst and alb nebs q6h
DNs with prn doses for in between
Chest x-ray 09/11/2023: Reviewed, showed improved aeration on the left but persistent left sided atelectasis.
Occasionally repeat CXR
Tracheostomy has been exchanged:
Dr. Powell evaluated her on 09/05 --> #6XLT placed on 09/05 (mercy)
Tolerating well, maintaining adequate TV/pressures
Pneumonia: Resolved. Completed antibiotic therapy
Discontinued antibiotics on 09/03/2023: Afebrile. Cultures negative.
Fever again on AM of 09/04 --> ABx restarted with cefepime; trach secs culture 09-04 + BAL 09-05 both growing Serratia marcescens + Pseudomonas aeruginosa.
Positive blood culture 08-30 suspect contaminant (Lactob casei)
ID has evaluated the patient, (completed 5 d cefepime 09-08 with levaquin on 09/09)-infectious disease has signed off.
Continue to monitor off antibiotics.
Swallowing dysfunction:
Recurrent microaspiration also has been contemplated in the past. She has been evaluated by speech therapy multiple times in the past. Diet has been modified.
Primary team ordered video barium swallow--> unfortunately patient is not safe to be placed back onto trach collar at this time.
s/p PEG tube, continue TFs
DVT prophylaxis-heparin SQ
Early mobilization/bedside range of motion-baseline wheelchair-bound and ambulatory dysfunction
Nutritional support via PEG
DC planning to LTAC. This has been denied
Bed available at [facility], awaiting family decision making --> apparently pt being discharged today to this facility
Reviewed with nursing and respiratory care
Disposition efforts
Outpatient pulmonary FU recommended
Total time spent today was 35 minutes for this encounter. Time includes reviewing laboratory test/imaging results, reviewing pertinent medical records, obtaining and reviewing medical history, performing an appropriate exam, ordering medications,
tests and procedures. Time also includes documentation of this encounter, coordinating patient care and communicating with other healthcare professionals. Total time does not include separately billed tests performed on this date of service.
Diagnostic Data:
Chest x-ray 08/17/2023-near complete opacification throughout the left Jovanni thorax
Chest 09-18-2023: Interval removal of enteric tube; No significant interval change compared to the prior x-ray with near complete opacification of left hemithorax secondary to atelectasis and pleural fluid. Diffusely increased interstitial opacities
within the right lung with small amount of likely loculated pleural fluid.
CXR 09-22-2023: Low lung volumes with diffusely increased interstitial markings bilaterally with nonspecific patchy opacities seen within the right midlung. Compared to the prior study, there is improved aeration of the left lung. Persistent/confluent
left basilar opacity which may represent a small amount of pleural fluid and/or airspace consolidation.
CXR 09-26-2023: Suggestion of slight improvement in aeration of the lateral aspect of the left lower lung; Small bilateral pleural effusions are probably present; Cardiomegaly with indistinctness of the central pulmonary vasculature, findings
suggestive of pulmonary edema.
Echocardiogram 01/10/22-EF 60-65%, no significant valvular disease, small pericardial effusion
Echocardiogram 03/22/22: Normal left ventricular chamber size. Normal left ventricular systolic�function. Normal regional wall motion. Normal left ventricular wall thickness.�Left ventricular ejection fraction is 60-65%. Mild tricuspid
regurgitation.�Small to moderate pericardial effusion without evidence of hemodynamic�compromise.�Compared to the previous echo Dec 2021, there is no significant change.
CT CHEST 04/11/22- �A moderate to large left pleural effusion and complete collapse/atelectasis of the left lung account for the left hemithorax opacification on the prior chest radiograph. Findings are in part likely secondary to mucous plugging
given the presence of opacification of the left mainstem bronchus and left upper and lower lobe bronchi, patchy opacifications right middle and lower lobe suspicious for pneumonia, moderate right pleural effusion and ill-defined sclerotic lesion
T12, osseous metastasis not completely excluded
CT CHEST 03/22/22 - There is no CT evidence for pulmonary embolism. No aortic dissection.There are extremely large bilateral pleural effusions right greater than left and associated bilateral consolidation most prominent in the left lower
lobe.Cardiomegaly. Increased pericardial effusion.
CT chest 08/17/2023-occluded left mainstem bronchus presumably mucous plugs with complete atelectasis left lung moderate size left pleural effusion, small to moderate right pleural effusion
VSE 04/28/22: No aspiration. Laryngeal penetration with cough with thin liquids by cup.
Spirometry 09/09/21-FEV1 790 mL-36%, FVC 790 mL 27%. Some difficulties with maneuver and thus may offer unreliability. Severe restriction.�������
PFT 02/08/22-FVC 1.01/30%, FEV1 0.70/35%, ratio 69%, unable to perform lung volumes and diffusing capacity.
Subjective Data
-
Date of Service:
Date of Service: September 28, 2023
Chief Complaint: Pulmonary Follow Up (Acute respiratory failure/mucous plugging.)
Subjective:
Patient seen today at bedside. Currently on mechanical ventilation via tracheostomy on VC/AC at 16/450/40%/5, with peak inspiratory pressure of 47 with plateau pressure 32, no obvious secretions with breath sounds heard bilaterally. VTe is 482 and
she is breathing at 20 breaths/min and appears comfortable. Her mean airway pressure is 15. She is saturating 94%, heart rate 75, and BP 176/87. She denies any chest pain, shortness of breath, abdominal pain, fevers or chills.
Review of Systems
General: Other (Negative unless mentioned above)
Objective Data
Data Reviewed
Vital Signs / I&O / Oxygen:
Vital Signs
Temp Pulse Resp BP Pulse Ox
97.8 F 56 16 118/55 96
09/28/23 11:20 09/28/23 10:00 09/28/23 10:00 09/28/23 10:00 09/28/23 12:00
Intake and Output
09/27/23 09/28/23 09/29/23
06:59 06:59 06:59
Intake Total 840 / 840
Output Total 300 / 300 250 / 250
Balance -300 / -300 590 / 590
SaO2 [CPAP/PSV] 98
SaO2 [A/C] 96
SaO2 98
Physical Exam
General: Respiratory Distress (negative) and Comfortable
HEENT: Normocephalic, Anicteric and Tracheotomy (#6 XLT)
Cardiovascular: S1-S2, Murmur (n), Rub (n) and Peripheral Edema (Trace edema)
Respiratory: Wheeze (Negative), Crackles (Few at base), Rhonchi (Few), Non-Labored Respirations and Other (Tracheostomy; mechanical breath sounds heard bilaterally; diminished BS at left hemithorax)
GI: Soft, Non Distended, Non Tender, Normal Bowel Sounds and Feeding Tube (G-tube present)
Neurology: Awake, Alert, No Motor Deficits (Moves extremities, generally weak) and Other (Following commands)
Skin: Warm, Dry, Cyanosis (n) and Rash (n)
Labs/Micro/Reports
Lab Data
09/27/23 10:57
09/27/23 04:43
Microbiology
09/26/23 10:38 Nose MRSA Screen - Final
Staph aureus MRSA
09/06/23 15:39 Bronch Left Lower Lobe Fungal Culture - Preliminary
Culture in progress.
Positive cultures are reported as soon as detected.
Final report to follow in four to five weeks.
--- NOTE | 2023-09-28 13:59 | CM ---
CM following re: discharge planning.
Reviewed pt's chart, met with pt. Pt's and daughter at bedside.
CM notes reviewed and acknowledged and discussed with MD, pt's and daughter in details.
Per and daughter, as of 09/18/23 pt has Medicare insurance. Pt's current insurance has denied LTAC level of care. CM discussed it with [facility], spoke to due diligence coordinator Jerome and [facility] liaison Jumana and both
agreed that pt can be admitted under medicare. Pt's update clinical with respiratory therapist flow sheets faxed to both [facility] and [facility]. Per [facility] communications representative Jerome, their MD team reviewing a referral and determination
might be available by tomorrow.
CM spoke to [facility] liaison and she confirmed that pt is accepted for admission to [facility] today.
CM discussed it with pt's and pt's daughter, they expressed their great appreciation regarding discharge plan outcome and they requested [facility]. IMM reviewed, placed on chart, pt has a copy.
Transportation arranged by with [facility], ALS, cotton picker time 19:00. [facility] .
[facility] nursing report: [phone]
Please fax discharge instructions to: [phone]
D/C plan: [facility].
[2023-09-28] MEDS: APRESOLINE 50 MG TUBE (16:27)
[2023-09-28] MEDS: NOVOLOG FLEXPEN-LOW RESISTANCE SC (18:24)
[2023-09-28 18:35] LABS: Glucose - Point of Care 130 mg/dl (70-99)
--- NOTE | 2023-09-28 20:35 | PTCARENOTE ---
Addendum entered by Gayle Shea RN 09/28/23 20:36:
Transport informing RN that Pt home vent will not fit. RN will pass on for family to be called for dormitory supervisor.
Original Note:
Pt being transferred to facility. Transport arrived at 2014.
--- NOTE | 2023-09-28 20:38 | PTCARENOTE ---
Pt being transferred to facility. Transport arrived at 2014.
== END 2023-09-28 21:03 | DRG 207 ==
LOC: IMU 18:58
PROVIDERS: Hospitalist; Internal Medicine; Internal Medicine Critical Care Medicine; Internal Medicine Pulmonary Disease; Nurse Practitioner Family; Radiology Vascular & Interventional Radiology; Registered Nurse; Specialist; Surgery; ADMITTING PHYSICIAN Internal Medicine; CONSULT PHYSICIAN Otolaryngology; CONSULT PHYSICIAN Student in an Organized Health Care Education/Training Program; EMERGENCY PHYSICIAN Student in an Organized Health Care Education/Training Program; FAMILY PHYSICIAN Nurse Practitioner Family; OTHER PHYSICIAN Internal Medicine; OTHER PHYSICIAN Internal Medicine Gastroenterology; OTHER PHYSICIAN Internal Medicine Infectious Disease
PROC: 5A1955Z Respiratory Ventilation, Greater than 96 Consecutive Hours (ICD-10-PCS; 2023-08-31)
PROC: 30233N1 Transfusion of Nonautologous Red Blood Cells into Peripheral Vein, Percutaneous Approach (ICD-10-PCS; 2023-09-01)
PROC: 0B21XFZ Change Tracheostomy Device in Trachea, External Approach (ICD-10-PCS; 2023-09-06)
PROC: 0B9J8ZX Drainage of Left Lower Lung Lobe, Via Natural or Artificial Opening Endoscopic, Diagnostic (ICD-10-PCS; 2023-09-06)
PROC: 02HV33Z Insertion of Infusion Device into Superior Vena Cava, Percutaneous Approach (ICD-10-PCS; 2023-09-07)
PROC: 0BJ08ZZ Inspection of Tracheobronchial Tree, Via Natural or Artificial Opening Endoscopic (ICD-10-PCS; 2023-09-11)
PROC: 0DH63UZ Insertion of Feeding Device into Stomach, Percutaneous Approach (ICD-10-PCS; 2023-09-14)
DX: T17.590A Other foreign object in bronchus causing asphyxiation, initial encounter (principal); L89.153 Pressure ulcer of sacral region, stage 3; J96.22 Acute and chronic respiratory failure with hypercapnia; G93.41 Metabolic encephalopathy; J69.0 Pneumonitis due to inhalation of food and vomit; J96.21 Acute and chronic respiratory failure with hypoxia; E87.4 Mixed disorder of acid-base balance; E87.0 Hyperosmolality and hypernatremia; N17.9 Acute kidney failure, unspecified; N18.4 Chronic kidney disease, stage 4 (severe); J98.11 Atelectasis; Z99.11 Dependence on respirator [ventilator] status; I31.39 Other pericardial effusion (noninflammatory); E46 Unspecified protein-calorie malnutrition; W44.F9XA Other object of natural or organic material, entering into or through a natural orifice, initial encounter; E11.22 Type 2 diabetes mellitus with diabetic chronic kidney disease; I12.9 Hypertensive chronic kidney disease with stage 1 through stage 4 chronic kidney disease, or unspecified chronic kidney disease; D63.8 Anemia in other chronic diseases classified elsewhere; D50.9 Iron deficiency anemia, unspecified; E83.51 Hypocalcemia; E78.00 Pure hypercholesterolemia, unspecified; E87.5 Hyperkalemia; I25.10 Atherosclerotic heart disease of native coronary artery without angina pectoris; E88.09 Other disorders of plasma-protein metabolism, not elsewhere classified; E83.42 Hypomagnesemia; R13.10 Dysphagia, unspecified; E66.9 Obesity, unspecified; R26.2 Difficulty in walking, not elsewhere classified; M48.00 Spinal stenosis, site unspecified; I25.2 Old myocardial infarction; Z11.52 Encounter for screening for COVID-19; Z68.26 Body mass index [BMI] 26.0-26.9, adult; Z79.4 Long term (current) use of insulin; Z79.82 Long term (current) use of aspirin; Z79.899 Other long term (current) drug therapy; Z93.0 Tracheostomy status; Z95.5 Presence of coronary angioplasty implant and graft; Z99.3 Dependence on wheelchair; Z86.16 Personal history of COVID-19; Z99.81 Dependence on supplemental oxygen; Z87.440 Personal history of urinary (tract) infections
CPT/HCPCS: 36556; 36600; 51701; 70450; 71045; 74018; 76770; 76937; 77001; 80048; 80053; 80202; 81003; 81015; 82306; 82565; 82607; 82728; 82805; 82962; 83540; 83550; 83605; 83735; 83880; 84100; 84132; 84145; 84443; 84484; 84520; 85025; 85027; 85610; 85730; 86704; 86706; 86803; 86850; 86900; 86901; 86920; 87015; 87040; 87070; 87071; 87077; 87086; 87102; 87116; 87147; 87186; 87205; 87324; 87340; 87389; 87449; 87811; 88112; 89051; 93005; 94002; 94003; 94640; 94668; 94669; 95816; 96374; 96375; 99291; 99292; C1751; J2916; P9016; P9058